=== PATIENT | female | born 1980 | race Caucasian/White ===

== ENCOUNTER → 2020-01-06 12:54 | Outpatient (BNVA) | payer MEDICARE, MEDICAID, SELFPAY | PROVIDERS: Visit Provider Surgery | DX: Z76.89 Persons encountering health services in other specified circumstances (principal) ==

== ENCOUNTER 2020-01-13 12:01 | Outpatient (REF) | payer OTHER, SELFPAY ==
[2020-01-13 14:17] LABS: Anion Gap 14 (12-20); Blood Urea Nitrogen 13 mg/dL (9-16); Calcium 8.9 mg/dL (8.4-10.2); Carbon Dioxide 25 mmol/L (22-29); Chloride 104 mmol/L (96-108); Estimated Glomerular Filt Rate > 60; Glucose Random 141 mg/dL (60-115); Potassium 3.9 mmol/l (3.3-5.1); Sodium 139 mmol/L (135-145)
[2020-01-13 14:22] LABS: B Type Natriuretic Peptide < 10 pg/mL (<100)
[2020-01-13 14:54] LABS: MANUAL DIFF FLAG NO
[2020-01-13 15:02] LABS: Basophils Percent Auto 0.5 % (0-2); Eosinophils Absolute Auto 0.2 X10*3/uL (0.0-0.4); Eosinophils Percent Auto 1.9 % (0-4); Hematocrit 37.9 % (37-47); Hemoglobin 12.3 g/dl (12.0-16.0); Imm Gran Abs Auto 0.02 X10*3/uL (0.00-0.03); Imm Gran Pct Auto 0.2 % (0.0-0.4); Lymphocytes Absolute Auto 2.4 X10*3/uL (1.2-4.9); Lymphocytes Percent Auto 27.2 % (20-40); Mean Corpuscular HGB Conc 32.5 g/dl (31.0-35.0); Mean Corpuscular Hemoglobin 29.2 pg (27.0-33.0); Mean Platelet Volume 9.8 fL (9.4-12.3); Neutrophils Absolute Auto 5.2 X10*3/uL (2.0-8.3); Neutrophils Percent Auto 59.2 % (45-73); Platelet Count 338 X10*3/uL (160-400); Red Blood Count 4.21 X10*6/uL (4.20-5.50); Red Cell Distribution Width 12.5 % (11.0-16.0); White Blood Count 8.9 X10*3/uL (4.8-10.8)
[2020-01-13 15:27] LABS: Alanine Aminotransferase 14 U/L (0-31); Albumin Level 3.8 g/dL (3.5-5.0); Alkaline Phosphatase 93 U/L (39-117); Anion Gap 14 (12-20); Aspartate Amino Transferase 18 U/L (5-31); Bilirubin Total 0.5 mg/dL (0.0-1.0); Blood Urea Nitrogen 13 mg/dL (9-16); C Reactive Protein 4.37 mg/dL (< or = 0.50); Carbon Dioxide 26 mmol/L (22-29); Chloride 104 mmol/L (96-108); Estimated Glomerular Filt Rate > 60; Glucose Random 77 mg/dL (60-115); Potassium 4.1 mmol/l (3.3-5.1); Sodium 140 mmol/L (135-145); Total Protein 7.4 g/dL (6.5-8.0)
[2020-01-13 15:50] LABS: Erythrocyte Sedimentation Rate 63 MM/HR (0-20)
== END 2020-01-13 12:02 | disposition home or self-care (01) ==
LOC: HO.LAB 12:01
PROVIDERS: Absent Provider Student in an Organized Health Care Education/Training Program; PCP Internal Medicine; Visit Provider Internal Medicine Cardiovascular Disease
DX: M05.9 Rheumatoid arthritis with rheumatoid factor, unspecified (principal); M17.0 Bilateral primary osteoarthritis of knee; Z79.899 Other long term (current) drug therapy
CPT/HCPCS: 20610; 36415; 80048; 80053; 83880; 85025; 85652; 86140; 87071; 87205; 89060; 99212

== ENCOUNTER → 2020-01-16 10:16 | Outpatient (BNVA) | payer OTHER, SELFPAY | PROVIDERS: PCP Emergency Medicine; Visit Provider Surgery | DX: E27.49 Other adrenocortical insufficiency (principal); M06.9 Rheumatoid arthritis, unspecified; M81.8 Other osteoporosis without current pathological fracture; T38.0X5D Adverse effect of glucocorticoids and synthetic analogues, subsequent encounter; K91.2 Postsurgical malabsorption, not elsewhere classified; E11.40 Type 2 diabetes mellitus with diabetic neuropathy, unspecified; E66.9 Obesity, unspecified; Z68.31 Body mass index [BMI] 31.0-31.9, adult; Z79.52 Long term (current) use of systemic steroids; Z98.84 Bariatric surgery status; Z86.39 Personal history of other endocrine, nutritional and metabolic disease; Z90.722 Acquired absence of ovaries, bilateral | CPT/HCPCS: 99212 ==

== ENCOUNTER 2020-01-26 10:36 | Outpatient (REF) | payer OTHER, SELFPAY ==
[2020-01-26 11:54] LABS: Blood Urea Nitrogen 8 mg/dL (9-16); Estimated Glomerular Filt Rate > 60
== END 2020-01-26 10:37 | disposition home or self-care (01) ==
LOC: HO.MDS 10:36
PROVIDERS: PCP Internal Medicine; Visit Provider Student in an Organized Health Care Education/Training Program
DX: M81.0 Age-related osteoporosis without current pathological fracture (principal)
CPT/HCPCS: 82565; 84520; 96365; J3489

== ENCOUNTER 2020-03-17 12:22 | Outpatient (REF) | payer OTHER, SELFPAY ==
[2020-03-17 14:01] LABS: MANUAL DIFF FLAG NO
[2020-03-17 14:12] LABS: Basophils Percent Auto 0.5 % (0-2); Eosinophils Absolute Auto 0.1 X10*3/uL (0.0-0.4); Eosinophils Percent Auto 2.2 % (0-4); Hematocrit 39.8 % (37-47); Hemoglobin 12.8 g/dl (12.0-16.0); Imm Gran Abs Auto 0.01 X10*3/uL (0.00-0.03); Imm Gran Pct Auto 0.2 % (0.0-0.4); Mean Corpuscular HGB Conc 32.2 g/dl (31.0-35.0); Mean Corpuscular Hemoglobin 28.8 pg (27.0-33.0); Mean Corpuscular Volume 89.4 fL (80-98); Mean Platelet Volume 9.9 fL (9.4-12.3); Monocytes Absolute Auto 0.9 X10*3/uL (0.1-1.2); Monocytes Percent Auto 15.7 % (2-11); Neutrophils Absolute Auto 2.9 X10*3/uL (2.0-8.3); Neutrophils Percent Auto 48.4 % (45-73); Platelet Count 304 X10*3/uL (160-400); Red Blood Count 4.45 X10*6/uL (4.20-5.50); Red Cell Distribution Width 13.2 % (11.0-16.0); White Blood Count 5.9 X10*3/uL (4.8-10.8)
[2020-03-17 14:41] LABS: Alanine Aminotransferase 16 U/L (0-31); Alkaline Phosphatase 84 U/L (39-117); Anion Gap 11 (12-20); Aspartate Amino Transferase 19 U/L (5-31); Bilirubin Total 0.3 mg/dL (0.0-1.0); Blood Urea Nitrogen 8 mg/dL (9-16); C Reactive Protein 0.88 mg/dL (< or = 0.50); Carbon Dioxide 27 mmol/L (22-29); Chloride 108 mmol/L (96-108); Estimated Glomerular Filt Rate > 60; Glucose Random 75 mg/dL (60-115); Potassium 3.7 mmol/l (3.3-5.1); Sodium 142 mmol/L (135-145); Total Protein 7.3 g/dL (6.5-8.0)
[2020-03-17 14:48] LABS: Erythrocyte Sedimentation Rate 33 MM/HR (0-20)
== END 2020-03-17 12:23 | disposition home or self-care (01) ==
LOC: HO.LAB 12:22
PROVIDERS: PCP Emergency Medicine; Visit Provider Student in an Organized Health Care Education/Training Program
DX: M05.9 Rheumatoid arthritis with rheumatoid factor, unspecified (principal); M25.511 Pain in right shoulder
CPT/HCPCS: 20610; 36415; 80053; 85025; 85652; 86140; 99212

== ENCOUNTER → 2020-04-02 09:56 | Outpatient (BNVA) | payer OTHER, SELFPAY | PROVIDERS: PCP Internal Medicine; Visit Provider Internal Medicine Endocrinology, Diabetes & Metabolism | DX: Z13.89 Encounter for screening for other disorder (principal) | CPT/HCPCS: Q3014 ==

== ENCOUNTER 2020-05-04 11:38 | Outpatient (REF) | payer OTHER, SELFPAY | END 2020-05-04 11:39 | disposition home or self-care (01) | LOC: HO.LAB 11:38 | PROVIDERS: Visit Provider Internal Medicine | DX: Z20.822 Contact with and (suspected) exposure to COVID-19 (principal) | CPT/HCPCS: 36415; C9803; U0003; U0005 ==

== ENCOUNTER 2020-05-07 12:45 | Emergency (ER) | payer OTHER, SELFPAY ==
--- NOTE | ~2020-05-07 | XR_ITS ---
EXAMINATION: XR CHEST CLINICAL INFORMATION: COVID/shortness of breath COMPARISON: 10/28/2019 TECHNIQUE: Frontal view of the chest was obtained. FINDINGS: Lung volumes remain low. Coarse interstitial opacities are present similar to the prior study. No focal consolidation or mass. Normal heart size. No pleural effusion or pneumothorax. Left upper quadrant/epigastric surgical clips. XR/XR chest 1V IMPRESSION: Lung volumes are low with coarse interstitial opacity similar to the prior study. No acute pulmonary disease.
[2020-05-07 13:13] VITALS: BP 100/62; PULSE 89; RESP 18; TEMP 35.7; O2SAT 99; BMI 33.3
--- NOTE | 2020-05-07 13:14 | ED.URI ---
HPI - URI/Sore Throat General Chief Complaint: General Medical Stated Complaint: POS COVID SOB Time Seen by Provider: 05/07/20 13:07 Source: patient Mode of arrival: ambulatory History of Present Illness HPI Narrative: 39-year-old female with past medical history of diabetes, gastric bypass, possible mild distortion, secondary adrenal insufficiency, diabetic neuropathy, COVID-19 positive on 05/04, presenting to the ED complaining of continued dry cough with associated chest discomfort when coughing, SOB, myalgias, generalized weakness since dx covid-19. Denies recent travel, calf pain, decreased po intake, fever +sick contacts Related Data Home Medications Medication Instructions Recorded Confirmed baclofen 10 mg tablet 10 mg PO TID 01/13/20 04/02/20 bupropion HCl 100 mg tablet 100 mg PO .once a day tab 01/13/20 04/02/20 cyclobenzaprine 5 mg tablet 5 mg PO TID PRN 01/13/20 04/02/20 metoprolol tartrate 25 mg tablet 25 mg PO BID 01/13/20 04/02/20 oxycodone 5 mg tablet 5 mg PO Q4H PRN 01/13/20 04/02/20 pantoprazole 40 mg tablet,delayed 40 mg PO DAILY 01/13/20 04/02/20 release sertraline 100 mg tablet 100 mg PO DAILY 01/13/20 04/02/20 spironolactone 25 mg tablet 25 mg PO DAILY 01/13/20 04/02/20 vitamin B complex 1 tab PO DAILY 01/13/20 04/02/20 acetaminophen 325 mg tablet 0 mg PO 04/02/20 04/02/20 zolpidem 10 mg tablet 10 mg PO BEDTIME PRN 04/02/20 04/02/20 Previous Rx's Medication Instructions Recorded sarilumab 200 mg/1.14 mL 200 mg SUBCUT Q2W #2.28 ml 03/17/20 subcutaneous pen injector sulfasalazine 500 mg tablet 1,000 mg PO BID #120 tab 03/31/20 acarbose 25 mg tablet 25 mg PO TID 30 Days #90 tab 04/02/20 hydrocortisone 10 mg tablet 15 mg PO DAILY 30 Days #45 tab 04/02/20 hydrocortisone 5 mg tablet 7.5 mg PO DAILY 30 Days #45 tab 04/02/20 hydroxychloroquine 200 mg tablet 200 mg PO BID #180 tab 04/08/20 folic acid 1 mg tablet 1 mg PO QAM #30 tab 04/27/20 albuterol sulfate 2 puff INHALATION Q4-6H PRN #6.7 g 05/07/20 benzonatate [Tessalon Perles] 100 mg PO TID PRN #14 cap 05/07/20 doxycycline hyclate 100 mg PO BID 7 Days #14 cap 05/07/20 Allergies Allergy/AdvReac Type Severity Reaction Status Date / Time pt states no food/medication Allergy Unknown na Uncoded 01/16/20 10:56 a Review of Systems Review of Systems: Constitutional: No Weight loss, No Fever, No Chills ENT/Mouth: No Ear Pain, No Nasal Congestion, No Rhinorrhea, No Swallowing Difficulty Cardiovascular: + Chest Pain, + SOB Respiratory: +Cough, No Sputum, No Wheezing Gastrointestinal: No Nausea, No Vomiting, No Diarrhea, No Constipation, No Abdominal pain Musculoskeletal: No joint pain, + Myalgias, No Joint Swelling Skin: No Skin Lesions, No rash Neuro: + Weakness Yes all other systems are reviewed and are negative [facility] Past Medical History Attestation statement: The following information was validated with the patient. Medical History (Updated 05/07/20 @ 13:42 by MIKE Spain) Diabetic neuropathy History of diabetes mellitus resolved following bariatric surgery Hypoglycemia after GI (gastrointestinal) surgery Intestinal malabsorption Localized osteoarthritis of knees, bilateral Obesity Secondary adrenal insufficiency Seropositive rheumatoid arthritis Surgical History (Updated 04/02/20 @ 09:58 by Sri Mejia MA) H/O removal of cyst History of esophagogastroduodenoscopy (EGD) History of hip replacement History of kidney surgery History of Ofelia-en-Y gastric bypass Hx laparoscopic cholecystectomy Hx of hernia repair S/P NITHYA (total abdominal hysterectomy) Family History Family History (Updated 01/06/20 @ 10:21 by Juan Solis CMA) Father Epilepsia Depression Anxiety Colon cancer Mother HTN (hypertension) DM (diabetes mellitus) Heart disease RA (rheumatoid arthritis) Sister No problems noted. Sister No problems noted. Social History Social History (Updated 01/13/20 @ 12:46 by Dallas Harper LPN) Alcohol intake: never Smoking Status: Never smoker Advance Directives: No Advance Directives Information Provided: No Physical Exam Vital Signs: Vital Signs: Last Vital Signs Temp 96.3 F L 05/07/20 13:13 Pulse 89 05/07/20 13:13 Resp 18 05/07/20 13:13 BP 100/62 05/07/20 13:13 Pulse Ox 99 05/07/20 13:13 Body Mass Index 33.3 Const: General: cooperative, healthy appearing, comfortable and no acute distress Orientation/consciousness: patient oriented x3 Limitations: no limitations HENMT: Head: Yes normal to inspection Ears: hearing grossly normal bilaterally General nose exam: Normal external nose present Face and sinus: Yes normal facial exam Eyes: General: appearance normal, both eyes and all related structures EOM: EOMs intact bilaterally Neck: Neck: Yes normal visual inspection Resp: Effort & Inspection: normal respiratory effort Auscultation: clear to auscultation bilaterally, no rales, no rhonchi and no wheezes Cardio: Rate: regular rate Heart sounds: S1 normal heart sound present and S2 normal heart sound present GI: Inspection: Yes normal to inspection Palpation (GI): Soft to palpation, nontender, no guarding and not rigid Skin: Rashes: no rashes Wounds: no wounds Neuro: General: patient oriented x3 Gait exam (Neuro): Normal gait present Extrem: Other: no calf ttp General: Yes normal to inspection and Yes no pedal edema Course Course Course Narrative: XR chest 1V IMPRESSION: Lung volumes are low with coarse interstitial opacity similar to the prior study. No acute pulmonary disease. >> will d/c patient home with Z-asaf, albuterol, and tessalon pearls peer. Worrisome signs and symptoms and strict return precautions discussed. Patient verbalized understanding feel safe for discharge home MDM - URI/Sore Throat MDM Narrative Medical decision making narrative: On exam VSS, NAD, well appearing, lungs CTA. Likely sx due to covid-19. Low concern for ACS or PE. Low concern for bacterial PNA Plan: CXR Differential Diagnosis Differential diagnosis: Likely upper respiratory infection and viral infection Medical Records Attestation: I reviewed the patient's medical records. Lab Data Attestation: I reviewed the patient's lab results. Discharge Plan Discharge Clinical Impression: COVID-19 Patient Disposition: Home, Self-Care Instructions: COVID-19 (Coronavirus Disease 2019) (ED) Additional Instructions: You have COVID-19. Her x-ray did not show any acute findings. Doxyclycline in is an antibiotic, take as prescribed. In addition use albuterol inhaler at home as needed for shortness of breath and wheezing. Tessalon Perles for cough. Rest. Stay hydrated. Take Tylenol and Motrin every 4-6 hours for body aches and fever. If you develop constant or worsening shortness of breath, chest pain, or fevers unresolved with medications at home return to the ED. Tienes COVID-19. Robert radiograf?a no mostr? ace?n hallazgo elaine. Doxycycline en es un antibi?ray, t?garner seg?n lo prescrito. Adem?s, use el inhalador de albuterol en casa seg?n sea necesario para la dificultad para respirar y las sibilancias. Tessalon Perles para la tos. [place]. Mantente hidratado. [place] Tylenol y Motrin cada 4-6 horas para los checo corporales y la fiebre. Si presenta dificultad para respirar rashida o que empeora, dolor en el pecho o fiebre que no se resuelve con medicamentos en el hogar, regrese al servicio de urgencias. Prescriptions: New albuterol sulfate 90 mcg/actuation HFA aerosol inhaler 2 puff inhalation Q4-6H PRN (Reason: shortness of breath or wheezing) Qty: 6.7 RF: 0 benzonatate [Tessalon Perles] 100 mg capsule 100 mg PO TID PRN (Reason: cough) Qty: 14 RF: 0 doxycycline hyclate 100 mg capsule 100 mg PO BID 7 Days Qty: 14 RF: 0 No Action sulfasalazine 500 mg tablet 1,000 mg PO BID Qty: 120 RF: 3 hydroxychloroquine 200 mg tablet 200 mg PO BID Qty: 180 RF: 1 folic acid 1 mg tablet 1 mg PO QAM Qty: 30 RF: 11 oxycodone 5 mg tablet 5 mg PO Q4H PRNRF: 0 baclofen 10 mg tablet 10 mg PO TID RF: 0 vitamin B complex [B Complex-Vitamin B12] Tablet 1 tab PO DAILY RF: 0 cyclobenzaprine 5 mg tablet 5 mg PO TID PRNRF: 0 metoprolol tartrate 25 mg tablet 25 mg PO BID RF: 0 spironolactone 25 mg tablet 25 mg PO DAILY RF: 0 pantoprazole 40 mg tablet,delayed release (DR/EC) 40 mg PO DAILY RF: 0 sertraline 100 mg tablet 100 mg PO DAILY RF: 0 bupropion HCl 100 mg tablet 100 mg PO .once a day RF: 0 zolpidem 10 mg tablet 10 mg PO BEDTIME PRNRF: 0 acetaminophen 325 mg tablet 0 mg PO RF: 0 hydrocortisone 10 mg tablet 15 mg PO DAILY 30 Days Qty: 45 RF: 4 hydrocortisone 5 mg tablet 7.5 mg PO DAILY 30 Days Qty: 45 RF: 4 acarbose 25 mg tablet 25 mg PO TID 30 Days Qty: 90 RF: 5 Kevzara 200 mg/1.14 mL pen injector 200 mg subcut Q2W Qty: 2.28 RF: 2 Referrals: Physician,Unknown [Primary Care Provider] - 2 days (call) Print Language: Zambian
== END 2020-05-07 13:55 | disposition home or self-care (01) ==
PROVIDERS: Emergency Provider Emergency Medicine
DX: U07.1 COVID-19 (principal); R05 Cough; M79.10 Myalgia, unspecified site; Z79.899 Other long term (current) drug therapy
CPT/HCPCS: 71045; 99283

== ENCOUNTER 2020-05-17 14:21 | Outpatient (REF) | payer OTHER, SELFPAY | END 2020-05-17 14:22 | disposition home or self-care (01) | LOC: HO.LAB 14:21 | PROVIDERS: Visit Provider Internal Medicine | DX: Z20.822 Contact with and (suspected) exposure to COVID-19 (principal) | CPT/HCPCS: 36415; C9803; U0003; U0005 ==

== ENCOUNTER 2020-06-01 11:14 | Outpatient (REF) | payer OTHER, SELFPAY ==
[2020-06-01 12:39] LABS: MANUAL DIFF FLAG NO
[2020-06-01 12:43] LABS: Basophils Percent Auto 0.6 % (0-2); Eosinophils Absolute Auto 0.2 X10*3/uL (0.0-0.4); Eosinophils Percent Auto 2.9 % (0-4); Hemoglobin 11.6 g/dl (12.0-16.0); Imm Gran Abs Auto 0.01 X10*3/uL (0.00-0.03); Imm Gran Pct Auto 0.2 % (0.0-0.4); Lymphocytes Absolute Auto 1.7 X10*3/uL (1.2-4.9); Lymphocytes Percent Auto 32.6 % (20-40); Mean Corpuscular HGB Conc 31.4 g/dl (31.0-35.0); Mean Corpuscular Volume 82.8 fL (80-98); Mean Platelet Volume 10.2 fL (9.4-12.3); Monocytes Absolute Auto 0.6 X10*3/uL (0.1-1.2); Monocytes Percent Auto 11.7 % (2-11); Neutrophils Absolute Auto 2.7 X10*3/uL (2.0-8.3); Platelet Count 327 X10*3/uL (160-400); Red Blood Count 4.47 X10*6/uL (4.20-5.50); Red Cell Distribution Width 14.2 % (11.0-16.0); White Blood Count 5.2 X10*3/uL (4.8-10.8)
[2020-06-01 13:05] LABS: Alanine Aminotransferase 17 U/L (0-31); Albumin Level 4.1 g/dL (3.5-5.0); Alkaline Phosphatase 100 U/L (39-117); Anion Gap 13 (12-20); Aspartate Amino Transferase 26 U/L (5-31); Bilirubin Total 0.4 mg/dL (0.0-1.0); Blood Urea Nitrogen 9 mg/dL (9-16); C Reactive Protein 0.12 mg/dL (< or = 0.50); Calcium 9.2 mg/dL (8.4-10.2); Carbon Dioxide 25 mmol/L (22-29); Chloride 107 mmol/L (96-108); Estimated Glomerular Filt Rate > 60; Glucose Random 86 mg/dL (60-115); Potassium 3.6 mmol/L (3.3-5.1); Sodium 141 mmol/L (135-145); Total Protein 7.7 g/dL (6.5-8.0)
[2020-06-01 14:45] LABS: Erythrocyte Sedimentation Rate 28 MM/HR (0-20)
== END 2020-06-01 11:15 | disposition home or self-care (01) ==
LOC: HO.LAB 11:14
PROVIDERS: PCP Internal Medicine; Visit Provider Student in an Organized Health Care Education/Training Program
DX: M05.9 Rheumatoid arthritis with rheumatoid factor, unspecified (principal); M17.0 Bilateral primary osteoarthritis of knee; E27.49 Other adrenocortical insufficiency; E11.40 Type 2 diabetes mellitus with diabetic neuropathy, unspecified; E11.649 Type 2 diabetes mellitus with hypoglycemia without coma; K90.49 Malabsorption due to intolerance, not elsewhere classified; Z98.84 Bariatric surgery status; Z90.49 Acquired absence of other specified parts of digestive tract; Z90.710 Acquired absence of both cervix and uterus; Z96.641 Presence of right artificial hip joint; Z86.16 Personal history of COVID-19; Z79.899 Other long term (current) drug therapy
CPT/HCPCS: 20610; 36415; 80053; 85025; 85652; 86140; 99212

== ENCOUNTER 2020-06-02 09:47 | Outpatient (REF) | payer OTHER, SELFPAY | END 2020-06-02 09:48 | disposition home or self-care (01) | LOC: HO.LAB 09:47 | PROVIDERS: Visit Provider Internal Medicine | DX: Z20.822 Contact with and (suspected) exposure to COVID-19 (principal) | CPT/HCPCS: 36415; C9803; U0003; U0005 ==

== ENCOUNTER → 2020-06-04 09:56 | Outpatient (BNVA) | payer OTHER, SELFPAY | PROVIDERS: PCP Internal Medicine; Visit Provider Internal Medicine Endocrinology, Diabetes & Metabolism | DX: E27.49 Other adrenocortical insufficiency (principal); E11.40 Type 2 diabetes mellitus with diabetic neuropathy, unspecified; K91.2 Postsurgical malabsorption, not elsewhere classified; Z98.84 Bariatric surgery status | CPT/HCPCS: 99212 ==

== ENCOUNTER 2020-07-18 11:35 | Inpatient (IN) | payer OTHER, SELFPAY ==
[2020-07-18] VITALS (7 sets, daily range): BP systolic 92–129; BP diastolic 52–87; PULSE 53–101; RESP 16–20; TEMP 36.9–37.6; O2SAT 94–103; BMI 41.5
--- NOTE | ~2020-07-18 | FL_ITS ---
EXAMINATION: XR FLUOROSCOPY WITH IMAGES CLINICAL INFORMATION: Right retrograde pyelogram COMPARISON: CT of abdomen pelvis the second 2020 TECHNIQUE: Fluoroscopy performed by Dr. Luisito Lewis. Fluoroscopy time: 28.5 seconds 10.25 mcg Images: 3 FINDINGS: Initial film shows an obstructing stone in the distal ureter. The next pictures demonstrate the distal end of a double-J stent in the bladder and the proximal end coiled near the ureteropelvic junction. FL/FL guidance in OR IMPRESSION: Fluoroscopy and spot films during right sided stent placement
--- NOTE | ~2020-07-18 | CT_ITS ---
EXAMINATION: CT ABDOMEN AND PELVIS WITH CONTRAST CLINICAL INFORMATION: Epigastric pain with nausea and vomiting with history of gastric bypass COMPARISON: CT abdomen pelvis 09/07/2019 TECHNIQUE: Multidetector volumetric images were obtained from the superior aspect of the liver through the pubic symphysis following administration 85 mL of Omnipaque 350 intravenous contrast. Sagittal and coronal reformatted images were obtained on the technologist's workstation. Oral contrast: No This CT examination was performed using dose optimization techniques as appropriate, variously including the following: *Automated exposure control *Adjustment of mA and/or kV according to patient size (this includes techniques or standardized protocols for targeted exams where dose is matched to indication/reason for exam; i.e. extremities or head) *Use of iterative reconstruction technique DLP: 835 mGy-cm FINDINGS: LUNG BASES: The visualized lung bases are unremarkable. LIVER, GALLBLADDER, AND BILIARY TREE: The liver is normal in size, shape, and attenuation. No focal hepatic lesion or biliary ductal dilatation is present. The gallbladder has been removed. PANCREAS: Unremarkable. SPLEEN: Unremarkable. ADRENAL GLANDS: Unremarkable. KIDNEYS AND URETERS: Right: The right kidney is swollen compared to the left and demonstrates a decreased nephrogram. There is marked hydronephrosis present with a dilated ureter down to the level of an obstructing calculus about 4 cm above the ureterovesical junction. The calculus measures 5 mm in greatest length. It measures 700 Hounsfield units which occludes some partial volume averaging. 3 intrarenal nonobstructing calculi are present with 2 in the upper pole and the largest in the lower pole measuring 5 mm. This stone is 12.4 cm from the posterior axillary line. No right-sided renal masses are seen. Left: 3 nonobstructing left intrarenal calculi are seen with a punctate calcification at the upper as well as lower pole and a larger calcification measuring 5 mm in the mid kidney. No renal masses are seen. No hydronephrosis is present and the left ureter appears normal. BLADDER: Unremarkable. GASTROINTESTINAL TRACT: Patient appears to have undergone a Ofelia-en-Y gastric type bypass. The small and large bowel are otherwise unremarkable. The appendix is unremarkable. ABDOMINAL WALL: No significant hernia is appreciated. LYMPH NODES: No retroperitoneal lymphadenopathy. VASCULAR: Unremarkable. PELVIC VISCERA: Surgically removed OSSEOUS STRUCTURES: Degenerative changes present in the spine most marked at L5-S1. A right total hip prosthesis is present. CT/CT abdomen pelvis w con IMPRESSION: 1. Obstructing right distal ureteral 5 mm calculus with right-sided hydronephrosis and ureterectasis down to the level of the stone about 4 cm above the bladder. 2. Nonobstructing bilateral intrarenal calculi. 3. Incidentally noted cholecystectomy, Ofelia-en-Y type gastric bypass, hysterectomy, right hip replacement and degenerative changes L5-S1.
--- NOTE | ~2020-07-18 | CT_ITS ---
EXAMINATION: CT HEAD WITHOUT CONTRAST CLINICAL INFORMATION: Headache COMPARISON: None TECHNIQUE: Contiguous axial imaging was performed from the skull base to vertex without intravenous administration of contrast. This CT examination was performed using dose optimization techniques as appropriate, variously including the following: *Automated exposure control *Adjustment of mA and/or kV according to patient size (this includes techniques or standardized protocols for targeted exams where dose is matched to indication/reason for exam; i.e. extremities or head) *Use of iterative reconstruction technique DLP: 652 mGy-cm FINDINGS: There is no evidence of acute intracranial hemorrhage or territorial infarction. No abnormal mass effect or midline shift is seen. Jason to white matter differentiation is well preserved. No extra-axial fluid collections are identified. The ventricles are normal in size. There is no abnormal attenuation within the brain parenchyma. The osseous structures and soft tissues are normal. The mastoid air cells and visualized portions of the paranasal sinuses are well aerated. CT/CT head/brain wo con IMPRESSION: No acute intracranial process seen.
[2020-07-18 16:01] LABS: Basophils Percent Auto 0.1 % (0-2); Eosinophils Percent Auto 0.4 % (0-4); Hematocrit 34.5 % (37-47); Imm Gran Abs Auto 0.02 X10*3/uL (0.00-0.03); Imm Gran Pct Auto 0.3 % (0.0-0.4); Lymphocytes Percent Auto 14.5 % (20-40); MANUAL DIFF FLAG SCAN; Mean Corpuscular HGB Conc 31.9 g/dl (31.0-35.0); Mean Corpuscular Hemoglobin 25.4 pg (27.0-33.0); Mean Corpuscular Volume 79.7 fL (80-98); Mean Platelet Volume 9.9 fL (9.4-12.3); Monocytes Absolute Auto 1.5 X10*3/uL (0.1-1.2); Monocytes Percent Auto 21.6 % (2-11); Neutrophils Absolute Auto 4.4 X10*3/uL (2.0-8.3); Neutrophils Percent Auto 63.1 % (45-73); Platelet Count 234 X10*3/uL (160-400); Red Blood Count 4.33 X10*6/uL (4.20-5.50); Red Cell Distribution Width 17.9 % (11.0-16.0); SCAN SMEAR FLAG 1
[2020-07-18 16:22] LABS: Alanine Aminotransferase 17 U/L (0-31); Albumin Level 3.7 g/dL (3.5-5.0); Alkaline Phosphatase 108 U/L (39-117); Anion Gap 12 (12-20); Aspartate Amino Transferase 17 U/L (5-31); Bilirubin Direct 0.2 mg/dL (0.0-0.5); Bilirubin Total 0.5 mg/dL (0.0-1.0); Blood Urea Nitrogen 7 mg/dL (9-16); Calcium 8.8 mg/dL (8.4-10.2); Carbon Dioxide 26 mmol/L (22-29); Chloride 102 mmol/L (96-108); Creatinine Clr Calc Pharmacy 133.7; Estimated Glomerular Filt Rate > 60; Glucose Random 113 mg/dL (60-115); Lipase 22 U/L (8-78); Potassium 3.2 mmol/L (3.3-5.1); Sodium 137 mmol/L (135-145); Total Protein 7.5 g/dL (6.5-8.0)
--- NOTE | 2020-07-18 16:26 | ED.ABDPAIN ---
HPI - Abdominal Pain General Chief Complaint: Abdominal Pain Stated Complaint: headache Time Seen by Provider: 07/18/20 16:22 Source: patient and old records reviewed Mode of arrival: ambulatory Limitations: no limitations History of Present Illness HPI narrative: 40 yo female with hx of gastric bypass 2 years ago, DM, RA, secondary AI comes in with c/o 5 days of upper abdominal pain wrapping around back with n/v no flatus, + constipation, also notes stabbing headache during that time, patient unable to take her medications including her daily hydrocortisone MD elicited complaint: abdominal pain Onset (ago): day(s) (5) Pain Consistency: constant Location: epigastric Severity: severe Quality: stabbing Radiation: bilateral flank Migration to: no migration Exacerbating factors: vomiting and movement Relieving factors: nothing Associated symptoms: nausea, vomiting, chills and other (headache that is sharp and stabbing at times) Related Data Home Medications Medication Instructions Recorded Confirmed baclofen 10 mg tablet 10 mg PO TID 01/13/20 06/04/20 bupropion HCl 100 mg tablet 100 mg PO .once a day tab 01/13/20 06/04/20 cyclobenzaprine 5 mg tablet 5 mg PO TID PRN 01/13/20 06/04/20 metoprolol tartrate 25 mg tablet 25 mg PO BID 01/13/20 06/04/20 oxycodone 5 mg tablet 5 mg PO Q4H PRN 01/13/20 06/04/20 pantoprazole 40 mg tablet,delayed 40 mg PO DAILY 01/13/20 06/04/20 release sertraline 100 mg tablet 100 mg PO DAILY 01/13/20 06/04/20 spironolactone 25 mg tablet 25 mg PO DAILY 01/13/20 06/04/20 vitamin B complex 1 tab PO DAILY 01/13/20 06/04/20 zolpidem 10 mg tablet 10 mg PO BEDTIME PRN 04/02/20 06/04/20 blood sugar diagnostic #10 ea 06/04/20 06/04/20 cholecalciferol (vitamin D3) 50 50 mcg PO DAILY 06/04/20 06/04/20 mcg (2,000 unit) capsule furosemide 40 mg tablet 120 mg PO Q OTHER DAY PRN 06/04/20 06/04/20 lancets 33 gauge #100 ea 06/04/20 06/04/20 sacubitril 24 mg-valsartan 26 mg 1 tab PO BID 06/04/20 06/04/20 tablet Previous Rx's Medication Instructions Recorded sulfasalazine 500 mg tablet 1,000 mg PO BID #120 tab 03/31/20 hydroxychloroquine 200 mg tablet 200 mg PO BID #180 tab 04/08/20 folic acid 1 mg tablet 1 mg PO QAM #30 tab 04/27/20 albuterol sulfate 2 puff INHALATION Q4-6H PRN #6.7 g 05/07/20 gabapentin 600 mg tablet 600 mg PO BEDTIME #30 tab 06/01/20 acarbose 25 mg tablet 25 mg PO TID 30 Days #90 tab 06/04/20 hydrocortisone 10 mg tablet 10 mg PO DAILY 30 Days #30 tab 06/04/20 hydrocortisone 5 mg tablet 5 mg PO DAILY 30 Days #30 tab 06/04/20 sarilumab 200 mg/1.14 mL 200 mg SUBCUT Q2W #2.28 ml 06/15/20 subcutaneous pen injector TRUEplus Lancets 33 gauge #100 ea NS 06/23/20 blood sugar diagnostic #100 ea 06/23/20 Allergies Allergy/AdvReac Type Severity Reaction Status Date / Time pt states no food/medication Allergy Unknown na Uncoded 01/16/20 10:56 a Review of Systems Review of Systems Constitutional : No Fever, No Chills, No Fatigue ENT/Mouth : No sore throat, No Rhinorrhea Eyes: No Eye Pain, No Swelling, No Redness Cardiovascular : No Chest Pain, No SOB, No Dyspnea on Exertion Respiratory : No Cough, No Sputum Gastrointestinal : pos Nausea, pos Vomiting, No Diarrhea, pos abdominal Pain Genitourinary : No Dysuria, No Urinary Frequency, No Hematuria, Musculoskeletal : No joint pain, No Myalgias, No Joint Swelling Skin : No Skin Lesions, No rash Neuro : No Weakness, No Numbness, No Dizziness, positive Headache Psych : No Anxiety/Panic, No Depression Heme/Lymph: No Bruising, No Bleeding,No Lymphadenopathy Endocrine : No Polyuria, No Polydipsia All other systems reviewed and are negative Physical Exam Vital Signs: Vital Signs: Last Vital Signs Temp 99.6 F 07/18/20 18:58 Pulse 99 07/18/20 18:58 Resp 18 07/18/20 18:58 BP 112/57 L 07/18/20 19:32 Pulse Ox 98 07/18/20 18:58 Body Mass Index 41.5 Appearance: Alert. Oriented X3. No acute distress. Eyes: Pupils equal, round and reactive to light. ENT: Pharynx normal. Neck: Normal inspection. Neck supple. CVS: Normal heart rate and rhythm. Pulses normal. Respiratory: No respiratory distress. Breath sounds normal. Abdomen: Soft and moderate RUQ and epigastric ttp no rebound or guarding Skin: Skin warm and dry. Normal skin color. Normal skin turgor. Extremities: No lower extremity edema. No calf ttp Neuro: Oriented X 3. No motor deficit. No sensory deficit. Steady gait no ataxia Course Course Course Narrative: given her n/v and pain message sent to Urology - concern that she cannot keep her medications down including her hydrocortisone - will admit to medicine with Urology follow up after discussion with Dr. Lewis possible infection at this time in UA sample given 814pm cultures, lactic acid and empiric rocephin ordered MDM - Abdominal Pain MDM Narrative Medical decision making narrative: 40 yo female with DM, s/p bariatric surgery 2 years ago, secondary AI here with 5 days of n/v and abdominal pain along with headache at this time will need labs, CT head for mass, CT abdomen for obstruction/pancreatitis/duodenitis, she is not able to take her medications will need IV hydrocortisone, IV protonix, IV morphine for pain, dispo per results and findings Lab Data Result diagrams: 07/18/20 15:46 07/18/20 15:46 Labs: Lab Results 07/18/20 07/18/20 07/18/20 Range/Units 15:46 15:46 15:46 WBC 7.0 (4.8-10.8) X10*3/uL RBC 4.33 (4.20-5.50) X10*6/uL Hgb 11.0 L (12.0-16.0) g/dl Hct 34.5 L (37-47) % MCV 79.7 L (80-98) fL MCH 25.4 L (27.0-33.0) pg MCHC 31.9 (31.0-35.0) g/dl RDW 17.9 H (11.0-16.0) % Plt Count 234 D (160-400) X10*3/uL MPV 9.9 (9.4-12.3) fL Immature Gran % (Auto) 0.3 (0.0-0.4) % Neut % (Auto) 63.1 (45-73) % Lymph % (Auto) 14.5 L (20-40) % Hood % (Auto) 21.6 H (2-11) % Eos % (Auto) 0.4 (0-4) % Baso % (Auto) 0.1 (0-2) % Lymph # (Auto) 1.0 L (1.2-4.9) X10*3/uL Hood # (Auto) 1.5 H (0.1-1.2) X10*3/uL Eos # (Auto) 0.0 (0.0-0.4) X10*3/uL Baso # (Auto) 0.0 (0.0-0.2) X10*3/uL Abs Immat Gran (auto) 0.02 (0.00-0.03) X10*3/uL Absolute Neuts (auto) 4.4 (2.0-8.3) X10*3/uL Absolute Nucleated RBC 0.000 (0.0-0.012) X10*3/uL Nucleated RBC % (auto) 0.0 (0.0-0.2) /100WBC Smear Tech's Comments VERIFIED Hold Blue Top SEE NOTE Sodium 137 (135-145) mmol/L Potassium 3.2 L (3.3-5.1) mmol/L Chloride 102 (96-108) mmol/L Carbon Dioxide 26 (22-29) mmol/L Anion Gap 12 (12-20) BUN 7 L (9-16) mg/dL Creatinine 0.66 (0.5-1.4) mg/dL Estim Creat Clear Calc 133.7 Estimated GFR > 60 Random Glucose 113 (60-115) mg/dL Calcium 8.8 (8.4-10.2) mg/dL Total Bilirubin 0.5 (0.0-1.0) mg/dL Direct Bilirubin 0.2 (0.0-0.5) mg/dL AST 17 (5-31) U/L ALT 17 (0-31) U/L Alkaline Phosphatase 108 (39-117) U/L Total Protein 7.5 (6.5-8.0) g/dL Albumin 3.7 (3.5-5.0) g/dL Lipase 22 (8-78) U/L Urine Color Urine Appearance Urine pH (5.0-8.0) Ur Specific [place] (1.005-1.025) Urine Protein (NEG-TRACE) MG/DL Urine Glucose (UA) (NEG) MG/DL Urine Ketones (NEG) MG/DL Urine Blood (NEG) Urine Nitrite (NEG) Ur Leukocyte Esterase (NEG) COVID-19 (JOSEE) (Negative) COVID-19 Clin Com 07/18/20 07/18/20 Range/Units 19:20 19:58 WBC (4.8-10.8) X10*3/uL RBC (4.20-5.50) X10*6/uL Hgb (12.0-16.0) g/dl Hct (37-47) % MCV (80-98) fL MCH (27.0-33.0) pg MCHC (31.0-35.0) g/dl RDW (11.0-16.0) % Plt Count (160-400) X10*3/uL MPV (9.4-12.3) fL Immature Gran % (Auto) (0.0-0.4) % Neut % (Auto) (45-73) % Lymph % (Auto) (20-40) % Hood % (Auto) (2-11) % Eos % (Auto) (0-4) % Baso % (Auto) (0-2) % Lymph # (Auto) (1.2-4.9) X10*3/uL Hood # (Auto) (0.1-1.2) X10*3/uL Eos # (Auto) (0.0-0.4) X10*3/uL Baso # (Auto) (0.0-0.2) X10*3/uL Abs Immat Gran (auto) (0.00-0.03) X10*3/uL Absolute Neuts (auto) (2.0-8.3) X10*3/uL Absolute Nucleated RBC (0.0-0.012) X10*3/uL Nucleated RBC % (auto) (0.0-0.2) /100WBC Smear Tech's Comments Hold Blue Top Sodium (135-145) mmol/L Potassium (3.3-5.1) mmol/L Chloride (96-108) mmol/L Carbon Dioxide (22-29) mmol/L Anion Gap (12-20) BUN (9-16) mg/dL Creatinine (0.5-1.4) mg/dL Estim Creat Clear Calc Estimated GFR Random Glucose (60-115) mg/dL Calcium (8.4-10.2) mg/dL Total Bilirubin (0.0-1.0) mg/dL Direct Bilirubin (0.0-0.5) mg/dL AST (5-31) U/L ALT (0-31) U/L Alkaline Phosphatase (39-117) U/L Total Protein (6.5-8.0) g/dL Albumin (3.5-5.0) g/dL Lipase (8-78) U/L Urine Color YELLOW Urine Appearance HAZY Urine pH 6.5 (5.0-8.0) Ur Specific [place] <= 1.005 (1.005-1.025) Urine Protein NEG (NEG-TRACE) MG/DL Urine Glucose (UA) NEG (NEG) MG/DL Urine Ketones 15 (NEG) MG/DL Urine Blood TRACE (NEG) Urine Nitrite NEG (NEG) Ur Leukocyte Esterase 1+ H (NEG) COVID-19 (JOSEE) Negative (Negative) COVID-19 Clin Com See Note ECG Data Attestation: I personally reviewed and interpreted this ECG as follows: ECG interpretation date: 07/18/20 ECG interpretation time: 16:53 Interpretation: Rate: 96 Rhythm: NSR [place]: normal Normal P waves. Normal NOEL. Normal QRS complex. ST T wave : normal, no CECE qTC: normal no prior studies: no acute ischemia The study has been interpreted contemporaneously by me. . Discharge Plan Discharge Clinical Impression: Right ureteral stone Vomiting Qualifiers: Vomiting type: unspecified Vomiting Intractability: intractable Nausea presence: with nausea Qualified Code(s): R11.2 - Nausea with vomiting, unspecified Abdominal pain Qualifiers: Abdominal location: right upper quadrant Qualified Code(s): R10.11 - Right upper quadrant pain Patient Disposition: Admitted As Inpatient [facility] Past Medical History Attestation statement: The following information was validated with the patient. Medical History Diabetic neuropathy History of diabetes mellitus resolved following bariatric surgery Hypoglycemia after GI (gastrointestinal) surgery Intestinal malabsorption Localized osteoarthritis of knees, bilateral Obesity Secondary adrenal insufficiency Seropositive rheumatoid arthritis Surgical History H/O removal of cyst History of esophagogastroduodenoscopy (EGD) History of hip replacement History of kidney surgery History of Ofelia-en-Y gastric bypass Hx laparoscopic cholecystectomy Hx of hernia repair S/P NITHYA (total abdominal hysterectomy) Family History Family History Father Epilepsia Depression Anxiety Colon cancer Mother HTN (hypertension) DM (diabetes mellitus) Heart disease RA (rheumatoid arthritis) Sister No problems noted. Sister No problems noted. Social History Social History Alcohol intake: never Smoking Status: Never smoker Use of substances other than those prescribed or required for medical reasons: No Advance Directives: No Advance Directives Information Provided: No
[2020-07-18 16:32] LABS: SLIDE REVIEW VERIFIED
--- NOTE | 2020-07-18 16:33 | ECG_ITS ---
Test Reason : ABDOMINAL PAIN Blood Pressure : / mmHG Vent. Rate : 096 BPM Atrial Rate : 096 BPM P-R Int : 152 ms QRS Dur : 098 ms QT Int : 370 ms P-R-T Axes : 023 063 031 degrees QTc Int : 467 ms Normal sinus rhythm Normal ECG When compared with ECG of 28-OCT-2019 18:30, No significant change was found Referred By: Darcy Sheffield Electronically Signed By:WENDY GONZALEZ
[2020-07-18] MEDS: iohexoL 350 MG/ML 100 ML INFUS..BTL IV (18:32)
[2020-07-18] MEDS: Pantoprazole Sodium 40 MG/10 ML VIAL IVPUSH (18:38)
[2020-07-18] MEDS: Morphine Sulfate 4 MG/ML CARTRIDGE IVPUSH (18:38)
[2020-07-18] MEDS: Potassium Chloride/H20 10 MEQ/100 ML PIGGYBACK 100 MEQ IV ×2 (18:38→19:46)
[2020-07-18] MEDS: Hydrocortisone Sod Succ/PF 100 MG VIAL 50 MG IVPUSH (18:38)
[2020-07-18] MEDS: 0.9 % Sodium Chloride 1,000 ML 999 ML IVCONT ×2 (18:39→21:57)
[2020-07-18] MEDS: ondansetron HCL 4 MG/2 ML VIAL IVPUSH (18:39)
[2020-07-18 19:44] LABS: COVID-19 Test Negative (Negative); IDNOW Serial# 9DD0AD1C
--- NOTE | 2020-07-18 19:53 | P.HPHOSP_ITS ---
History of Present Illness Date of Service: 07/18/20 Chief Complaint: Nausea/vomiting 40-year-old female with a past medical history of rheumatoid arthritis, diabetes, history of adrenal insufficiency on hydrocortisone, obesity status post gastric bypass 2 years ago-[place] procedure presented to the hospital toda y with a chief complaint of nausea vomiting. Patient mentioned that over the past 5 days he has been having right-sided flank pain associated with nausea and vomiting; unable to keep anything down, has been missing her home medications. Complains of abdominal discomfort. Denies any chest pain palpitations. Denies any fever chills cough. Also complains of headaches. Denies any blurry visions. Denies any diarrhea or blood in the vomitus. Denies any urinary symptoms. Patient also complained of subjective chills/fevers Review of all other systems is negative except mentioned above ER course: Per ER team patient CT scan showed right-sided hydronephrosis and renal calculus. Discussed with Dr. dixon from Urology who recommended admission and will be evaluated in the morning. Urinalysis pending; patient was given IV hydrocortisone, morphine. CT head showed no acute findings. [facility] Medical History Diabetic neuropathy History of diabetes mellitus resolved following bariatric surgery Hypoglycemia after GI (gastrointestinal) surgery Intestinal malabsorption Localized osteoarthritis of knees, bilateral Obesity Secondary adrenal insufficiency Seropositive rheumatoid arthritis Family History Father Epilepsia Depression Anxiety Colon cancer Mother HTN (hypertension) DM (diabetes mellitus) Heart disease RA (rheumatoid arthritis) Sister No problems noted. Sister No problems noted. Surgical History H/O removal of cyst History of esophagogastroduodenoscopy (EGD) History of hip replacement History of kidney surgery History of Ofelia-en-Y gastric bypass Hx laparoscopic cholecystectomy Hx of hernia repair S/P NITHYA (total abdominal hysterectomy) Social History Alcohol intake: never Smoking Status: Never smoker Meds Allergies Allergy/AdvReac Type Severity Reaction Status Date / Time pt states no food/medication Allergy Unknown na Uncoded 01/16/20 10:56 a Active Medications: Current Medications Generic Name Dose Route Start Last Admin Trade Name Shola PRN Reason Stop Dose Admin Docusate Sodium 100 mg 07/18/20 19:44 Docusate Sodium 100 Mg Capsule PO DAILY PRN Constipation Sodium Chloride 1,000 mls @ 999 mls/hr 07/18/20 19:15 Ns IVCONT 07/18/20 20:15 .Q1H1M CODI Potassium Chloride/Dextrose/Sod Cl 20 meq in 1,000 mls @ 100 mls/hr 07/18/20 19:45 IVCONT .Q10H CODI Morphine Sulfate 1 mg 07/18/20 19:53 Morphine Sulfate 2 Mg/Ml Cartridge IVPUSH Q4H PRN Pain, Severe (Pain Scale 7-10) Sodium Chloride 3 ml 07/19/20 00:00 0.9 % Sodium Chloride Flush 3 Ml Syringe IVFLUSH QSHIFT [facility] Home Medications Medication Instructions Recorded Confirmed Last Taken Type bupropion HCl 100 mg tablet 100 mg PO .once a day tab 01/13/20 07/18/20 Unknown History cyclobenzaprine 5 mg tablet 5 mg PO TID PRN 01/13/20 07/18/20 Unknown History metoprolol tartrate 25 mg tablet 25 mg PO BID 01/13/20 07/18/20 Unknown History oxycodone 5 mg tablet 5 mg PO Q4H PRN 01/13/20 07/18/20 Unknown History pantoprazole 40 mg tablet,delayed 40 mg PO DAILY 01/13/20 07/18/20 Unknown History release sertraline 100 mg tablet 100 mg PO DAILY 01/13/20 07/18/20 Unknown History spironolactone 25 mg tablet 25 mg PO DAILY 01/13/20 07/18/20 Unknown History vitamin B complex 1 tab PO DAILY 01/13/20 07/18/20 Unknown History zolpidem 10 mg tablet 10 mg PO BEDTIME PRN 04/02/20 07/18/20 Unknown History blood sugar diagnostic #10 ea 06/04/20 07/18/20 Unknown History cholecalciferol (vitamin D3) 50 50 mcg PO DAILY 06/04/20 07/18/20 Unknown H istory mcg (2,000 unit) capsule furosemide 40 mg tablet 120 mg PO Q OTHER DAY PRN 06/04/20 07/18/20 Unknown History lancets 33 gauge #100 ea 06/04/20 07/18/20 Unknown History sacubitril 24 mg-valsartan 26 mg 1 tab PO BID 06/04/20 07/18/20 Unknown History tablet alcohol swabs 0 pad TOPICAL 07/27/20 Unknown History diclofenac sodium 1 % topical gel 1 ea TOPICAL QID 07/27/20 Unknown History gabapentin 100 mg capsule 0 mg PO 07/27/20 Unknown History Physical Exam Vital Signs and Narrative: Vital Signs: Last Vital Signs Temp 99.6 F 07/18/20 18:58 Pulse 99 07/18/20 18:58 Resp 18 07/18/20 18:58 BP 112/57 L 07/18/20 19:32 Pulse Ox 98 07/18/20 18:58 Body Mass Index 41.5 Gen: Appears be in no acute distress HEENT: NCAT, Moist mucosa. Pulmonary: Vesicular breath sounds, fair air entry CVS: Normal S1-S2 Abdomen: BS+, Soft, mildly tender diffusely; no guarding no rigidity Extremities: Warm well perfused Neuro: Alert and awake. Results Labs CBC and Chem 7: 07/19/20 06:08 07/19/20 06:08 Labs: Laboratory Results - last 24 hr 07/18/20 07/18/20 07/18/20 15:46 15:46 15:46 MCV 79.7 L MCH 25.4 L MCHC 31.9 RDW 17.9 H Plt Count 234 D MPV 9.9 Immature Gran % (Auto) 0.3 Neut % (Auto) 63.1 Lymph % (Auto) 14.5 L Becker % (Auto) 21.6 H Eos % (Auto) 0.4 Baso % (Auto) 0.1 Lymph # (Auto) 1.0 L Becker # (Auto) 1.5 H Eos # (Auto) 0.0 Baso # (Auto) 0.0 Abs Immat Gran (auto) 0.02 Absolute Neuts (auto) 4.4 Absolute Nucleated RBC 0.000 Nucleated RBC % (auto) 0.0 Smear Tech's Comments VERIFIED Hold Blue Top SEE NOTE Anion Gap 12 Estim Creat Clear Calc 133.7 Estimated GFR > 60 Random Glucose 113 Calcium 8.8 Total Bilirubin 0.5 Direct Bilirubin 0.2 AST 17 ALT 17 Alkaline Phosphatase 108 Total Protein 7.5 Albumin 3.7 Lipase 22 COVID-19 ([facility]) COVID-19 Clin Com 07/18/20 19:20 MCV MCH MCHC RDW Plt Count MPV Immature Gran % (Auto) Neut % (Auto) Lymph % (Auto) Becker % (Auto) Eos % (Auto) Baso % (Auto) Lymph # (Auto) Becker # (Auto) Eos # (Auto) Baso # (Auto) Abs Immat Gran (auto) Absolute Neuts (auto) Absolute Nucleated RBC Nucleated RBC % (auto) Smear Tech's Comments Hold Blue Top Anion Gap Estim Creat Clear Calc Estimated GFR Random Glucose Calcium Total Bilirubin Direct Bilirubin AST ALT Alkaline Phosphatase Total Protein Albumin Lipase COVID-19 ([facility]) Negative COVID-19 Clin Com See Note Imaging Radiologist's Impressions: Impressions Abdomen/Pelvis CT 07/18/20 16:31 IMPRESSION: 1. Obstructing right distal ureteral 5 mm calculus with right-sided hydronephrosis and ureterectasis down to the level of the stone about 4 cm above the bladder. 2. Nonobstructing bilateral intrarenal calculi. 3. Incidentally noted cholecystectomy, Ofelia-en-Y type gastric bypass, hysterectomy, right hip replacement and degenerative changes L5-S1. Head CT 07/18/20 16:34 IMPRESSION: No acute intracranial process seen. Assessment and Plan (1) Abdominal pain: Qualifiers: Abdominal location: right upper quadrant Qualified Code(s): R10.11 - Right upper quadrant pain Status: Resolved 40-year-old female with a past medical history of rheumatoid arthritis, diabetes, history of COVID in April, obesity status post bariatric surgery, hypertension, adrenal insufficiency on hydrocortisone presented to the hospital with a chief complaint of nausea/vomiting/abdominal pain: Noted to have renal calculus with hydronephrosis. Patient had poor oral intake. Admitted for further management. Renal calculi/hydronephrosis: Urology was notified. Pain control. UTI: c/w ceftriaxone; f/u Cultures Nausea/vomiting: Supportive care. IV fluids. Diabetes: Insulin sliding scale. Hypokalemia: Repleted. History of adrenal insufficiency: Patient is on 5 mg of hydrocortisone at home. Will keep the patient on hydrocortisone 50 mg IV t.i.d. given acute infection/stress. For all other chronic conditions, home medications will be continued as ivette erated. DVT prophylaxis: Lovenox Code status: Full code
[2020-07-18 20:06] LABS: Glucose Urine UA NEG (NEG); Leukocyte Esterase Urine 1+ (NEG); Nitrite Urine NEG (NEG); PH 6.5 (5.0-8.0); Specific Gravity - Urine <= 1.005 (1.005-1.025); UACC Culture Trigger YES; Urine Blood TRACE (NEG); Urine Ketones 15 MG/DL (NEG); Urine Protein NEG (NEG-TRACE)
[2020-07-18 20:08] LABS: Appearance Urine HAZY; Color Urine YELLOW
[2020-07-18 20:16] LABS: Bacteria Urine 1+ /LPF; Squamous Epithelial Cell Urine TRACE /LPF; UPreg QC Valid YES; Urine Pregnancy NEGATIVE (NEGATIVE)
[2020-07-18 21:37] LABS: Glucose, Whole Blood 135 mg/dL (60-115)
[2020-07-18] MEDS: cefTRIAXone sodium 1 GM in 0.9 % Sodium Chloride 50 ML IV (21:57)
[2020-07-18] MEDS: KCl 20 mEq in 5% Dex/0.45% Sod 20 MEQ/1,000 ML IV.SOLN 100 MEQ IVCONT (22:08)
[2020-07-19] VITALS (16 sets, daily range): BP systolic 92–117; BP diastolic 54–75; PULSE 58–90; RESP 16–18; TEMP 36.1–36.7; O2SAT 94–100
[2020-07-19] MEDS: 0.9 % Sodium Chloride Flush 3 ML SYRINGE IVFLUSH (01:46)
[2020-07-19] MEDS: Morphine Sulfate 2 MG/ML CARTRIDGE 1 MG IVPUSH ×2 (01:47→08:04)
[2020-07-19] MEDS: Hydrocortisone Sod Succ/PF 100 MG VIAL 50 MG IVPUSH (03:41)
[2020-07-19 06:22] LABS: MANUAL DIFF FLAG NO
[2020-07-19 06:48] LABS: Anion Gap 10 (12-20); Blood Urea Nitrogen 5 mg/dL (9-16); Calcium 8.2 mg/dL (8.4-10.2); Carbon Dioxide 25 mmol/L (22-29); Chloride 110 mmol/L (96-108); Creatinine Clr Calc Pharmacy 157.6; Estimated Glomerular Filt Rate > 60; Glucose Random 124 mg/dL (60-115); Potassium 3.9 mmol/L (3.3-5.1); Sodium 141 mmol/L (135-145)
[2020-07-19 06:57] LABS: Basophils Percent Auto 0.4 % (0-2); Eosinophils Percent Auto 0.2 % (0-4); Hematocrit 30.6 % (37-47); Hemoglobin 9.6 g/dl (12.0-16.0); Imm Gran Abs Auto 0.02 X10*3/uL (0.00-0.03); Imm Gran Pct Auto 0.4 % (0.0-0.4); Lymphocytes Percent Auto 17.4 % (20-40); Mean Corpuscular HGB Conc 31.4 g/dl (31.0-35.0); Mean Corpuscular Hemoglobin 25.2 pg (27.0-33.0); Mean Corpuscular Volume 80.3 fL (80-98); Mean Platelet Volume 10.2 fL (9.4-12.3); Monocytes Absolute Auto 0.7 X10*3/uL (0.1-1.2); Monocytes Percent Auto 12.3 % (2-11); Neutrophils Absolute Auto 3.8 X10*3/uL (2.0-8.3); Neutrophils Percent Auto 69.3 % (45-73); Platelet Count 213 X10*3/uL (160-400); Red Blood Count 3.81 X10*6/uL (4.20-5.50); Red Cell Distribution Width 18.2 % (11.0-16.0); White Blood Count 5.5 X10*3/uL (4.8-10.8)
--- NOTE | 2020-07-19 08:05 | PC.NURSE ---
PT SLEEPING BUT EASILY AROUSABLE, RESPIRATIONS EVEN AND UNLABORED. PT REPORTS 10/10 PAIN IN THE RIGHT FLANK AREA, DENIES N/V. DR WAY AT BEDSIDE PLAN TO OPERATE AROUND 1100 TODAY. VS STABLE,
--- NOTE | 2020-07-19 08:10 | P.CNUR_ITS ---
History of Present Illness Consult details Consult date: 07/19/20 Narrative: Gita is a 40-year-old female Presented to the hospital through the emergency room with pain 9/10 and nausea with vomiting. Pain present on right lower flank radiating to right lower quadrant CT imaging performed 6 mm distal right ureteric stone with [id number] hydroureteronephrosis Prior history of stones and procedure approximately 1 year ago Underwent gastric bypass 2019 Based on her inability to retain oral medications and hydration coupled with nausea would recommend intervention for stone PMFSH Past Medical History Medical History Diabetic neuropathy History of diabetes mellitus resolved following bariatric surgery Hypoglycemia after GI (gastrointestinal) surgery Intestinal malabsorption Localized osteoarthritis of knees, bilateral Obesity Secondary adrenal insufficiency Seropositive rheumatoid arthritis Family History Family History Father Epilepsia Depression Anxiety Colon cancer Mother HTN (hypertension) DM (diabetes mellitus) Heart disease RA (rheumatoid arthritis) Sister No problems noted. Sister No problems noted. Surgical History Surgical History H/O removal of cyst History of esophagogastroduodenoscopy (EGD) History of hip replacement History of kidney surgery History of Ofelia-en-Y gastric bypass Hx laparoscopic cholecystectomy Hx of hernia repair S/P NITHYA (total abdominal hysterectomy) Social History Social History Alcohol intake: never Smoking Status: Never smoker Use of substances other than those prescribed or required for medical reasons: No Advance Directives: No Advance Directives Information Provided: No Meds Allergies Allergy/AdvReac Type Severity Reaction Status Date / Time pt states no food/medication Allergy Unknown na Uncoded 01/16/20 10:56 a Active Medications: Current Medications Generic Name Dose Route Start Last Admin Trade Name Freq PRN Reason Stop Dose Admin Docusate Sodium 100 mg 07/18/20 19:44 Docusate Sodium 100 Mg Capsule PO DAILY PRN Constipation Hydrocortisone Sodium Succinate 50 mg 07/19/20 03:00 07/19/20 03:41 Hydrocortisone Sod Succ/Pf 100 Mg Vial IVPUSH 50 mg Q8H CODI Administration Potassium Chloride/Dextrose/Sod Cl 20 meq in 1,000 mls @ 100 mls/hr 07/18/20 19:45 07/18/20 22:08 IVCONT 100 mls/hr .Q10H [facility] Administration Ceftriaxone Sodium 1 gm/ 50 mls @ 100 mls/hr 07/18/20 21:30 Sodium Chloride IV Q24H [facility] Insulin Human Lispro 0 unit 07/19/20 07:30 Insulin Lispro 100 Unit/Ml 3 Ml Vial SUBCUT QIDACHS [facility] Protocol Morphine Sulfate 1 mg 07/18/20 19:53 07/19/20 08:04 Morphine Sulfate 2 Mg/Ml Cartridge IVPUSH 1 mg Q4H PRN Administration Pain, Severe (Pain Scale 7-10) Sodium Chloride 3 ml 07/19/20 00:00 07/19/20 01:46 0.9 % Sodium Chloride Flush 3 Ml Syringe IVFLUSH 3 ml QSHIFT [facility] Administration Home Medications Medication Instructions Recorded Confirmed Last Taken Type bupropion HCl 100 mg tablet 100 mg PO .once a day tab 01/13/20 07/18/20 Unknown History cyclobenzaprine 5 mg tablet 5 mg PO TID PRN 01/13/20 07/18/20 Unknown History metoprolol tartrate 25 mg tablet 25 mg PO BID 01/13/20 07/18/20 Unknown History oxycodone 5 mg tablet 5 mg PO Q4H PRN 01/13/20 07/18/20 Unknown History pantoprazole 40 mg tablet,delayed 40 mg PO DAILY 01/13/20 07/18/20 Unknown History release sertraline 100 mg tablet 100 mg PO DAILY 01/13/20 07/18/20 Unknown History spironolactone 25 mg tablet 25 mg PO DAILY 01/13/20 07/18/20 Unknown History vitamin B complex 1 tab PO DAILY 01/13/20 07/18/20 Unknown History zolpidem 10 mg tablet 10 mg PO BEDTIME PRN 04/02/20 07/18/20 Unknown History blood sugar diagnostic #10 ea 06/04/20 07/18/20 Unknown History cholecalciferol (vitamin D3) 50 50 mcg PO DAILY 06/04/20 07/18/20 Unknown History mcg (2,000 unit) capsule furosemide 40 mg tablet 120 mg PO Q OTHER DAY PRN 06/04/20 07/18/20 Unknown History lancets 33 gauge #100 ea 06/04/20 07/18/20 Unknown History sacubitril 24 mg-valsartan 26 mg 1 tab PO BID 06/04/20 07/18/20 Unknown History tablet Physical Exam Vital Signs: Vital Signs: Last Vital Signs Temp 98.0 F 07/19/20 07:54 Pulse 69 07/19/20 07:54 Resp 18 07/19/20 08:04 BP 117/75 07/19/20 07:54 Pulse Ox 97 07/19/20 07:54 Body Mass Index 41.5 Const: General: cooperative, healthy appearing, comfortable and no acute distress Nutritional Appearance: average body habitus Orientation/consciousness: oriented to person, oriented to place and oriented to time Eyes: General: appearance normal, both eyes and all related structures Chest: Chest palpation & inspection: normal inspection of the chest Resp: Effort & Inspection: normal respiratory effort Cardio: Rate: regular rate GI: Inspection: Yes normal to inspection Skin: Hair: normal Neuro: General: oriented to person, oriented to place and oriented to time Extrem: General: Yes normal to inspection Results Labs Result diagrams: 07/19/20 06:08 07/19/20 06:08 Labs: Abnormal lab results 07/18/20 07/18/20 07/18/20 Range/Units 15:46 15:46 19:58 RBC (4.20-5.50) X10*6/uL Hgb 11.0 L (12.0-16.0) g/dl Hct 34.5 L (37-47) % MCV 79.7 L (80-98) fL MCH 25.4 L (27.0-33.0) pg RDW 17.9 H (11.0-16.0) % Lymph % (Auto) 14.5 L (20-40) % Gregory % (Auto) 21.6 H (2-11) % Lymph # (Auto) 1.0 L (1.2-4.9) X10*3/uL Gregory # (Auto) 1.5 H (0.1-1.2) X10*3/uL Potassium 3.2 L (3.3-5.1) mmol/L Chloride (96-108) mmol/L Anion Gap (12-20) BUN 7 L (9-16) mg/dL POC Glucose (60-115) mg/dL Random Glucose (60-115) mg/dL Calcium (8.4-10.2) mg/dL Ur Leukocyte Esterase 1+ H (NEG) Urine WBC 15-29 H (0-4) /HPF 07/18/20 07/19/20 07/19/20 Range/Units 21:31 06:08 06:08 RBC 3.81 L (4.20-5.50) X10*6/uL Hgb 9.6 L (12.0-16.0) g/dl Hct 30.6 L (37-47) % MCV (80-98) fL MCH 25.2 L (27.0-33.0) pg RDW 18.2 H (11.0-16.0) % Lymph % (Auto) 17.4 L (20-40) % Gregory % (Auto) 12.3 H (2-11) % Lymph # (Auto) 1.0 L (1.2-4.9) X10*3/uL Gregory # (Auto) (0.1-1.2) X10*3/uL Potassium (3.3-5.1) mmol/L Chloride 110 H (96-108) mmol/L Anion Gap 10 L (12-20) BUN 5 L (9-16) mg/dL POC Glucose 135 H (60-115) mg/dL Random Glucose 124 H (60-115) mg/dL Calcium 8.2 L D (8.4-10.2) mg/dL Ur Leukocyte Esterase (NEG) Urine WBC (0-4) /HPF Short CBC 07/18/20 07/19/20 Range/Units 15:46 06:08 WBC 7.0 5.5 (4.8-10.8) X10*3/uL Hgb 11.0 L 9.6 L (12.0-16.0) g/dl Hct 34.5 L 30.6 L (37-47) % Plt Count 234 D 213 (160-400) X10*3/uL BMP 07/18/20 07/19/20 15:46 06:08 Sodium 137 141 Potassium 3.2 L 3.9 D Chloride 102 110 H Carbon Dioxide 26 25 BUN 7 L 5 L Creatinine 0.66 0.56 Calcium 8.8 8.2 L D Liver Function 07/18/20 Range/Units 15:46 Total Bilirubin 0.5 (0.0-1.0) mg/dL Direct Bilirubin 0.2 (0.0-0.5) mg/dL AST 17 (5-31) U/L ALT 17 (0-31) U/L Alkaline Phosphatase 108 (39-117) U/L Albumin 3.7 (3.5-5.0) g/dL Urine 07/18/20 07/18/20 Range/Units 19:58 19:58 Urine Color YELLOW Urine Appearance HAZY Urine pH 6.5 (5.0-8.0) Ur Specific [place] <= 1.005 (1.005-1.025) Urine Protein NEG (NEG-TRACE) MG/DL Urine Glucose (UA) NEG (NEG) MG/DL Urine Test NEGATIVE (NEGATIVE) All other labs normal. Assessment and Plan (1) Right ureteral stone: Status: Acute Ureteroscopy We discussed the nature of the decision and reasonable alternatives for performing the above surgery. Interventions include chemical dissolution, ESWL, ureteroscopy with laser lithotripsy and stent placement, PCNL. Options such as medical therapy were discussed. The relative uncertainties and benefits related to each alternate procedure were adequately discussed. General surgical risks including, but not limited to, pain, bleeding, infection, myocardial infarction, pulmonary embolus, deep vein thrombosis and cerebrovascular accident which may result in further hos pitalization were discussed. Full disclosure of the procedure as well as all major risks, benefits and complications were discussed including but not limited to damage to the urethra, bladder and kidney infection, damage to the ureter, stent migration or malposition, scarring to the renal pelvis, remnant stone fragments, subsequent stone passage with need for secondary procedures. The overall secondary procedure rate is approximately 10-15%. The success rate of the procedure was discussed. Success of the procedure in the short-term does not necessarily guarantee that long-term success will be maintained. Suitable follow up will need to be maintained. The patient showed understanding of discussion and wishes to proceed with - cystoscopy, retrograde, ureteroscopy, possible lithotripsy/stone basketing and stent on the right side
--- NOTE | 2020-07-19 08:50 | PC.NURSE ---
report given to med/owner oral surgeon
[2020-07-19] MEDS: levoFLOXacin 500 MG TABLET PO (08:52)
[2020-07-19] MEDS: KCl 20 mEq in 5% Dex/0.45% Sod 20 MEQ/1,000 ML IV.SOLN 100 MEQ IVCONT (08:53)
[2020-07-19 09:10] LABS: Glucose, Whole Blood 131 mg/dL (60-115)
--- NOTE | 2020-07-19 09:33 | P.PNIM_ITS ---
Subjective Subjective Date of Service: 07/19/20 Interval History: Still with flank. No fever Review of Systems Gen: no fever Resp: no sob, no cough CV: no chest, no BACON, no leg edema GI/: No n/v, no abd pain, flank pain Neuro: No confusion Physical Exam Vital Signs: Vital Signs: Last Vital Signs Temp 98.0 F 07/19/20 07:54 Pulse 69 07/19/20 07:54 Resp 18 07/19/20 08:04 BP 117/75 07/19/20 07:54 Pulse Ox 97 07/19/20 07:54 Body Mass Index 41.5 Const: Other: General: AO X 3, no acute distress Resp: CTA bilateral CVS: S1,S2,RRR GI/: +BS, NT, no distention, mild right flank tenderness Skin: No rash Neuro: motor grossly intact Psych: appropriate affect Objective Data Current Medications Generic Name Dose Route Start Last Admin Trade Name Freq PRN Reason Stop Dose Admin Docusate Sodium 100 mg 07/18/20 19:44 Docusate Sodium 100 Mg Capsule PO DAILY PRN Constipation Hydrocortisone Sodium Succinate 50 mg 07/19/20 03:00 07/19/20 03:41 Hydrocortisone Sod Succ/Pf 100 Mg Vial IVPUSH 50 mg Q8H CODI Administration Potassium Chloride/Dextrose/Sod Cl 20 meq in 1,000 mls @ 100 mls/hr 07/18/20 19:45 07/19/20 08:53 IVCONT 100 mls/hr .Q10H CODI Administration Ceftriaxone Sodium 1 gm/ 50 mls @ 100 mls/hr 07/18/20 21:30 Sodium Chloride IV Q24H [facility] Insulin Human Lispro 0 unit 07/19/20 07:30 Insulin Lispro 100 Unit/Ml 3 Ml Vial SUBCUT QIDACHS [facility] Protocol Morphine Sulfate 1 mg 07/18/20 19:53 07/19/20 08:04 Morphine Sulfate 2 Mg/Ml Cartridge IVPUSH 1 mg Q4H PRN Administration Pain, Severe (Pain Scale 7-10) Sodium Chloride 3 ml 07/19/20 00:00 07/19/20 01:46 0.9 % Sodium Chloride Flush 3 Ml Syringe IVFLUSH 3 ml QSHIFT CODI Administration Labs CBC & Chem 7: 07/19/20 06:08 07/19/20 06:08 Microbiology Microbiology Results: Microbiology 07/18/20 19:58 Urine clean catch - Clean Catch Midstream Urine Culture - Preliminary Gram negative dolores Assessment and Plan (1) Abdominal pain: Status: Acute Assessment and Plan: 40-year-old female with a past medical history of rheumatoid arthritis, diabetes, history of COVID in April, obesity status post bariatric surgery, hypertension, adrenal insufficiency on hydrocortisone presented to the hospital with a chief complaint of nausea/vomiting/abdominal pain: Noted to have renal calculus with hydronephrosis. Patient had poor oral intake. Admitted for further management. Renal calculi/hydronephrosis: Cystoscopy and stone removal by Uro today UTI/Pyelo--culture gram negative dolores--continue ceftriaxone and to Ceftin at discharge Nausea/vomiting: Supportive care. IV fluids. Diabetes: Insulin sliding scale. Hypokalemia: Resolved History of adrenal insufficiency: Patient is on 5 mg of hydrocortisone at home. Will keep the patient on hydrocortisone 50 mg IV t.i.d. given acute infection/stress. For all other chronic conditions, home medications will be continued as tolerated. DVT prophylaxis: Lovenox Code status: Full code
--- NOTE | 2020-07-19 09:52 | PC.NURSE ---
pt reports feeling a little better after the morphine, pain at 7/10 pt of to sss
[2020-07-19 10:09] LABS: Glucose, Whole Blood 118 mg/dL (60-115)
--- NOTE | 2020-07-19 10:12 | P.CONAN_ITS ---
[facility] Active Problems Active Problems: All Active Problems (Updated 07/18/20 @ 19:32 by Darcy cornejo DO) COVID-19 (Acute) Vomiting (Acute) Abdominal pain (Acute) Right ureteral stone (Acute) History of diabetes mellitus resolved following bariatric surgery (Acute) Diabetic neuropathy (Acute) Hypoglycemia after GI (gastrointestinal) surgery (Acute) Secondary adrenal insufficiency (Acute) BMI 32.0-32.9,adult (Acute) Obesity (Acute) Localized osteoarthritis of knees, bilateral (Acute) Seropositive rheumatoid arthritis (Acute) Past Medical History Medical History Diabetic neuropathy History of diabetes mellitus resolved following bariatric surgery Hypoglycemia after GI (gastrointestinal) surgery Intestinal malabsorption Localized osteoarthritis of knees, bilateral Obesity Secondary adrenal insufficiency Seropositive rheumatoid arthritis Family History Family History Father Epilepsia Depression Anxiety Colon cancer Mother HTN (hypertension) DM (diabetes mellitus) Heart disease RA (rheumatoid arthritis) Sister No problems noted. Sister No problems noted. Surgical History Surgical History H/O removal of cyst History of esophagogastroduodenoscopy (EGD) History of hip replacement History of kidney surgery History of [place]-en-Y gastric bypass Hx laparoscopic cholecystectomy Hx of hernia repair S/P NITHYA (total abdominal hysterectomy) Social History Social History Alcohol intake: never Smoking Status: Never smoker Meds Allergies Allergy/AdvReac Type Severity Reaction Status Date / Time pt states no food/medication Allergy Unknown na Uncoded 01/16/20 10:56 a Active Medications: Current Medications Generic Name Dose Route Start Last Admin Trade Name Freq PRN Reason Stop Dose Admin Docusate Sodium 100 mg 07/18/20 19:44 Docusate Sodium 100 Mg Capsule PO DAILY PRN Constipation Hydrocortisone Sodium Succinate 50 mg 07/19/20 03:00 07/19/20 03:41 Hydrocortisone Sod Succ/Pf 100 Mg Vial IVPUSH 50 mg Q8H CODI Administration Potassium Chloride/Dextrose/Sod Cl 20 meq in 1,000 mls @ 100 mls/hr 07/18/20 19:45 07/19/20 08:53 IVCONT 100 mls/hr .Q10H CODI Administration Ceftriaxone Sodium 1 gm/ 50 mls @ 100 mls/hr 07/18/20 21:30 07/19/20 09:36 Sodium Chloride IV Not Given Q24H [facility] Insulin Human Lispro 0 unit 07/19/20 07:30 07/19/20 09:36 Insulin Lispro 100 Unit/Ml 3 Ml Vial SUBCUT Not Given QIDACHS [facility] Protocol Morphine Sulfate 1 mg 07/18/20 19:53 07/19/20 08:04 Morphine Sulfate 2 Mg/Ml Cartridge IVPUSH 1 mg Q4H PRN Administration Pain, Severe (Pain Scale 7-10) Sodium Chloride 3 ml 07/19/20 00:00 07/19/20 09:37 0.9 % Sodium Chloride Flush 3 Ml Syringe IVFLUSH Not Given QSHIFT [facility] Home Medications Medication Instructions Recorded Confirmed Last Taken Type bupropion HCl 100 mg tablet 100 mg PO .once a day tab 01/13/20 07/18/20 Unknown History cyclobenzaprine 5 mg tablet 5 mg PO TID PRN 01/13/20 07/18/20 Unknown History metoprolol tartrate 25 mg tablet 25 mg PO BID 01/13/20 07/18/20 Unknown History oxycodone 5 mg tablet 5 mg PO Q4H PRN 01/13/20 07/18/20 Unknown History pantoprazole 40 mg tablet,delayed 40 mg PO DAILY 01/13/20 07/18/20 Unknown History release sertraline 100 mg tablet 100 mg PO DAILY 01/13/20 07/18/20 Unknown History spironolactone 25 mg tablet 25 mg PO DAILY 01/13/20 07/18/20 Unknown History vitamin B complex 1 tab PO DAILY 01/13/20 07/18/20 Unknown History zolpidem 10 mg tablet 10 mg PO BEDTIME PRN 04/02/20 07/18/20 Unknown History blood sugar diagnostic #10 ea 06/04/20 07/18/20 Unknown History cholecalciferol (vitamin D3) 50 50 mcg PO DAILY 06/04/20 07/18/20 Unknown History mcg (2,000 unit) capsule furosemide 40 mg tablet 120 mg PO Q OTHER DAY PRN 06/04/20 07/18/20 Unknown History lancets 33 gauge #100 ea 06/04/20 07/18/20 Unknown History sacubitril 24 mg-valsartan 26 mg 1 tab PO BID 06/04/20 07/18/20 Unknown History tablet Exam Exam Date and Time: July 19, 2020 1012 Height,Weight and Vital Signs: Height 5 ft 3 in Weight 106.5 kg Last Vital Signs Temp 98.0 F 07/19/20 07:54 Pulse 69 07/19/20 07:54 Resp 18 07/19/20 08:04 BP 117/75 07/19/20 07:54 Pulse Ox 97 07/19/20 07:54 Pertinent Lab Results Pertinent Lab Results: Laboratory Tests 07/18/20 07/18/20 07/18/20 15:46 15:46 15:46 WBC 7.0 RBC 4.33 Hgb 11.0 L Hct 34.5 L MCV 79.7 L MCH 25.4 L MCHC 31.9 RDW 17.9 H Plt Count 234 D MPV 9.9 Immature Gran % (Auto) 0.3 Neut % (Auto) 63.1 Lymph % (Auto) 14.5 L [place]kinson % (Auto) 21.6 H Eos % (Auto) 0.4 Baso % (Auto) 0.1 Lymph # (Auto) 1.0 L [place]kinson # (Auto) 1.5 H Eos # (Auto) 0.0 Baso # (Auto) 0.0 Abs Immat Gran (auto) 0.02 Absolute Neuts (auto) 4.4 Absolute Nucleated RBC 0.000 Nucleated RBC % (auto) 0.0 Smear Tech's Comments VERIFIED Hold Blue Top SEE NOTE Sodium 137 Potassium 3.2 L Chloride 102 Carbon Dioxide 26 Anion Gap 12 BUN 7 L Creatinine 0.66 Estim Creat Clear Calc 133.7 Estimated GFR > 60 POC Glucose Random Glucose 113 Calcium 8.8 Total Bilirubin 0.5 Direct Bilirubin 0.2 AST 17 ALT 17 Alkaline Phosphatase 108 Total Protein 7.5 Albumin 3.7 Lipase 22 Urine Color Urine Appearance Urine pH Ur Specific [place] Urine Protein Urine Glucose (UA) Urine Ketones Urine Blood Urine Nitrite Ur Leukocyte Esterase Urine RBC Urine WBC Ur Squamous Epith Cells Urine Bacteria Urine Test COVID-19 ([facility]) COVID-19 Clin Com 07/18/20 07/18/20 07/18/20 19:20 19:58 19:58 WBC RBC Hgb Hct MCV MCH MCHC RDW Plt Count MPV Immature Gran % (Auto) Neut % (Auto) Lymph % (Auto) Atkinson % (Auto) Eos % (Auto) Baso % (Auto) Lymph # (Auto) Atkinson # (Auto) Eos # (Auto) Baso # (Auto) Abs Immat Gran (auto) Absolute Neuts (auto) Absolute Nucleated RBC Nucleated RBC % (auto) Smear Tech's Comments Hold Blue Top Sodium Potassium Chloride Carbon Dioxide Anion Gap BUN Creatinine Estim Creat Clear Calc Estimated GFR POC Glucose Random Glucose Calcium Total Bilirubin Direct Bilirubin AST ALT Alkaline Phosphatase Total Protein Albumin Lipase Urine Color YELLOW Urine Appearance HAZY Urine pH 6.5 Ur Specific [place] <= 1.005 Urine Protein NEG Urine Glucose (UA) NEG Urine Ketones 15 Urine Blood TRACE Urine Nitrite NEG Ur Leukocyte Esterase 1+ H Urine RBC 1-4 Urine WBC 15-29 H Ur Squamous Epith Cells TRACE Urine Bacteria 1+ Urine Test NEGATIVE COVID-19 ([facility]) Negative COVID-19 Clin Com See Note 07/18/20 07/19/20 07/19/20 21:31 06:08 06:08 WBC 5.5 RBC 3.81 L Hgb 9.6 L Hct 30.6 L MCV 80.3 MCH 25.2 L MCHC 31.4 RDW 18.2 H Plt Count 213 MPV 10.2 Immature Gran % (Auto) 0.4 Neut % (Auto) 69.3 Lymph % (Auto) 17.4 L Atkinson % (Auto) 12.3 H Eos % (Auto) 0.2 Baso % (Auto) 0.4 Lymph # (Auto) 1.0 L Atkinson # (Auto) 0.7 Eos # (Auto) 0.0 Baso # (Auto) 0.0 Abs Immat Gran (auto) 0.02 Absolute Neuts (auto) 3.8 Absolute Nucleated RBC 0.000 Nucleated RBC % (auto) 0.0 Smear Tech's Comments Hold Blue Top Sodium 141 Potassium 3.9 D Chloride 110 H Carbon Dioxide 25 Anion Gap 10 L BUN 5 L Creatinine 0.56 Estim Creat Clear Calc 157.6 Estimated GFR > 60 POC Glucose 135 H Random Glucose 124 H Calcium 8.2 L D Total Bilirubin Direct Bilirubin AST ALT Alkaline Phosphatase Total Protein Albumin Lipase Urine Color Urine Appearance Urine pH Ur Specific [place] Urine Protein Urine Glucose (UA) Urine Ketones Urine Blood Urine Nitrite Ur Leukocyte Esterase Urine RBC Urine WBC Ur Squamous Epith Cells Urine Bacteria Urine Test COVID-19 ([facility]) COVID-19 Clin Com 07/19/20 07/19/20 07:52 10:02 WBC RBC Hgb Hct MCV MCH MCHC RDW Plt Count MPV Immature Gran % (Auto) Neut % (Auto) Lymph % (Auto) Atkinson % (Auto) Eos % (Auto) Baso % (Auto) Lymph # (Auto) Atkinson # (Auto) Eos # (Auto) Baso # (Auto) Abs Immat Gran (auto) Absolute Neuts (auto) Absolute Nucleated RBC Nucleated RBC % (auto) Smear Tech's Comments Hold Blue Top Sodium Potassium Chloride Carbon Dioxide Anion Gap BUN Creatinine Estim Creat Clear Calc Estimated GFR POC Glucose 131 H 118 H Random Glucose Calcium Total Bilirubin Direct Bilirubin AST ALT Alkaline Phosphatase Total Protein Albumin Lipase Urine Color Urine Appearance Urine pH Ur Specific [place] Urine Protein Urine Glucose (UA) Urine Ketones Urine Blood Urine Nitrite Ur Leukocyte Esterase Urine RBC Urine WBC Ur Squamous Epith Cells Urine Bacteria Urine Test COVID-19 ([facility]) COVID-19 Clin Com Airway Mallampati Class: II TM Dist: >3cm Neck ROM: Full Loose/Missing/Broken Teeth: No Heart: RRR Lungs: CTA Assessment and Plan Assessment Anesthesia Assessment: Anesthesia Plan Discussed and Chart Reviewed Final Anesthetic Review NPO: Yes ASA Class: III Final Preanesthetic Review: Meds/Allgs Chart Reviewed, Consent Obtained/Reviewed and Anes Risks/Benef Reviewed Patient Risk: Intermediate Procedure Risk: Low Anesthetic Plan Anesthetic Plan: GA Disposition: Standard PACU
--- NOTE | 2020-07-19 11:00 | MHC.SHP ---
Pre-Procedural Eval Section A The patient is an INPATIENT: Yes Changes since office visit: No Cold of Flu in the past 2 weeks, No New Medical Problems, No Changes in Medication and No Patient answered all questions The History & Physical has been completed within 30 days and I have reviewed it.: Yes Section B Chief Complaint: Renal calculus Allergies: Allergies Allergy/AdvReac Type Severity Reaction Status Date / Time pt states no food/medication Allergy Unknown na Uncoded 01/16/20 10:56 a Plan Diagnosis/Plan: Unchanged (Right retrograde, ureteroscopy laser lithotripsy stent placement) I have reviewed the history and physical and performed a pertinent physical examination on my patient. No changes have occurred unless specified.
--- NOTE | 2020-07-19 11:37 | W.PM.OPN ---
Operative Note Operative Note Date of Service: 07/19/20 Narrative: PreOperative Diagnosis: Right distal ureteric stone Post Operative Diagnosis: Right distal ureteric stone Procedure: - right cystoscopy, retrograde - right dilatation of ureteric orifice under fluoroscopy - right ureteroscopy, laser lithotripsy, stone basketing - stent placement Surgeon: Dr Luisito Lewis Anesthesia: General Indications for procedure: 40-year-old female. Status post gastric bypass from 2018. Has recurrence stones. Unable to tolerate oral secondary to pain. Recommendation for intervention. She has had ureteroscopy previously. Procedure: After informed consent was verified patient was brought to the operating placed in supine position. Anesthesia was administered per protocol. Patient was placed in modified dorsal lithotomy position and prepped and draped in a sterile fashion. Safety pause time-out and side of surgery confirmed. Antibiotics confirmed. Twenty-two Polish cystoscope inserted per urethra. Bladder was normal. Right retrograde performed. Stone seen at junction between mid and distal ureter. Wire placed without difficulty. [place] dilator used to dilate ureteric orifice under fluoroscopy Rigid ureteroscopy performed. Stone encountered. Using a 375 nm holmium fiber the stone was broken into small pieces. Flat wire basket was used to remove samples which were sent for pathology. Once the small fragments were removed a 6 Polish by 22 cm double-J stent was placed without difficulty into renal pelvis with good coil in the bladder. She tolerated procedure well was extubated in operating room transferred to recovery area. Pathology: Stones Drains: 6 Polish by 22 cm stent
[2020-07-19] MEDS: Phenazopyridine HCL 100 MG TABLET PO (12:39)
--- NOTE | 2020-07-19 13:16 | P.DS_ITS ---
DS: Providers Provider Date of Service: 07/19/20 Date of admission: 07/18/20 19:45 Primary care physician: Nery Burgess MD Consults: 07/18/20 19:44 Consult to Urology Routine Consulting Provider: Luisito Lewis Reason for consultation: Renal Stone/Hydronephrosis DS: Diagnosis Discharge Diagnosis (1) Abdominal pain: Status: Acute DS: Medications Discharge Medications Home Medications: Home Medications Medication Instructions Recorded Confirmed bupropion HCl 100 mg tablet 100 mg PO .once a day tab 01/13/20 07/18/20 cyclobenzaprine 5 mg tablet 5 mg PO TID PRN 01/13/20 07/18/20 metoprolol tartrate 25 mg tablet 25 mg PO BID 01/13/20 07/18/20 oxycodone 5 mg tablet 5 mg PO Q4H PRN 01/13/20 07/18/20 pantoprazole 40 mg tablet,delayed 40 mg PO DAILY 01/13/20 07/18/20 release sertraline 100 mg tablet 100 mg PO DAILY 01/13/20 07/18/20 spironolactone 25 mg tablet 25 mg PO DAILY 01/13/20 07/18/20 vitamin B complex 1 tab PO DAILY 01/13/20 07/18/20 zolpidem 10 mg tablet 10 mg PO BEDTIME PRN 04/02/20 07/18/20 blood sugar diagnostic #10 ea 06/04/20 07/18/20 cholecalciferol (vitamin D3) 50 50 mcg PO DAILY 06/04/20 07/18/20 mcg (2,000 unit) capsule furosemide 40 mg tablet 120 mg PO Q OTHER DAY PRN 06/04/20 07/18/20 lancets 33 gauge #100 ea 06/04/20 07/18/20 sacubitril 24 mg-valsartan 26 mg 1 tab PO BID 06/04/20 07/18/20 tablet Previous Rx's Medication Instructions Recorded sulfasalazine 500 mg tablet 1,000 mg PO BID #120 tab 03/31/20 hydroxychloroquine 200 mg tablet 200 mg PO BID #180 tab 04/08/20 folic acid 1 mg tablet 1 mg PO QAM #30 tab 04/27/20 albuterol sulfate 2 puff INHALATION Q4-6H PRN #6.7 g 05/07/20 gabapentin 600 mg tablet 600 mg PO BEDTIME #30 tab 06/01/20 acarbose 25 mg tablet 25 mg PO TID 30 Days #90 tab 06/04/20 hydrocortisone 10 mg tablet 10 mg PO DAILY 30 Days #30 tab 06/04/20 hydrocortisone 5 mg tablet 5 mg PO DAILY 30 Days #30 tab 06/04/20 sarilumab 200 mg/1.14 mL 200 mg SUBCUT Q2W #2.28 ml 06/15/20 subcutaneous pen injector TRUEplus Lancets 33 gauge #100 ea NS 06/23/20 blood sugar diagnostic #100 ea 06/23/20 phenazopyridine [Pyridium] 100 mg PO TID PRN 4 Days #12 tab 07/19/20 sulfamethoxazole-trimethoprim 1 tab PO BID 3 Days #6 tab 07/19/20 [Bactrim DS] tamsulosin 0.4 mg PO BEDTIME 14 Days #14 cap 07/19/20 tramadol 50 mg PO Q6H PRN #14 tab 07/19/20 DS: Summary Hospital Course Hospital Course: Pt was admitted with kidney stone on right side and UTI and was taken to OR by Dr. Lewis for cystoscopy and stone removal and after that was discharged from PACU. Afebrile, WBC is normal. I saw her in ED before surgery Time Spent with Patient Time attestation: Total time spent providing and/or coordinating discharge services: Discharge coordination time: Greater than 30 minutes Physical Exam Vital Signs: Vital Signs: Last Vital Signs Temp 97.2 F 07/19/20 11:41 Pulse 86 07/19/20 12:46 Resp 18 07/19/20 12:46 BP 108/67 07/19/20 12:46 Pulse Ox 100 07/19/20 12:46 Body Mass Index 41.5 See progress note of 07/19 DS: Data Data Completed and Pending Pending studies at discharge: Pending at discharge 07/19/20 11:46 Surgical [PTH] Routine Labs on day of discharge: Laboratory Results - last 24 hr 07/18/20 07/18/20 07/18/20 15:46 15:46 15:46 WBC 7.0 RBC 4.33 Hgb 11.0 L Hct 34.5 L MCV 79.7 L MCH 25.4 L MCHC 31.9 RDW 17.9 H Plt Count 234 D MPV 9.9 Immature Gran % (Auto) 0.3 Neut % (Auto) 63.1 Lymph % (Auto) 14.5 L [place] % (Auto) 21.6 H Eos % (Auto) 0.4 Baso % (Auto) 0.1 Lymph # (Auto) 1.0 L [place] # (Auto) 1.5 H Eos # (Auto) 0.0 Baso # (Auto) 0.0 Abs Immat Gran (auto) 0.02 Absolute Neuts (auto) 4.4 Absolute Nucleated RBC 0.000 Nucleated RBC % (auto) 0.0 Smear Tech's Comments VERIFIED Hold Blue Top SEE NOTE Sodium 137 Potassium 3.2 L Chloride 102 Carbon Dioxide 26 Anion Gap 12 BUN 7 L Creatinine 0.66 Estim Creat Clear Calc 133.7 Estimated GFR > 60 POC Glucose Random Glucose 113 Calcium 8.8 Total Bilirubin 0.5 Direct Bilirubin 0.2 AST 17 ALT 17 Alkaline Phosphatase 108 Total Protein 7.5 Albumin 3.7 Lipase 22 Urine Color Urine Appearance Urine pH Ur Specific [place] Urine Protein Urine Glucose (UA) Urine Ketones Urine Blood Urine Nitrite Ur Leukocyte Esterase Urine RBC Urine WBC Ur Squamous Epith Cells Urine Bacteria Urine Test COVID-19 (JOSEE) [employer] 07/18/20 07/18/20 07/18/20 19:20 19:58 19:58 WBC RBC Hgb Hct MCV MCH MCHC RDW Plt Count MPV Immature Gran % (Auto) Neut % (Auto) Lymph % (Auto) [place] % (Auto) Eos % (Auto) Baso % (Auto) Lymph # (Auto) [place] # (Auto) Eos # (Auto) Baso # (Auto) Abs Immat Gran (auto) Absolute Neuts (auto) Absolute Nucleated RBC Nucleated RBC % (auto) Smear Tech's Comments Hold Blue Top Sodium Potassium Chloride Carbon Dioxide Anion Gap BUN Creatinine Estim Creat Clear Calc Estimated GFR POC Glucose Random Glucose Calcium Total Bilirubin Direct Bilirubin AST ALT Alkaline Phosphatase Total Protein Albumin Lipase Urine Color YELLOW Urine Appearance HAZY Urine pH 6.5 Ur Specific [place] <= 1.005 Urine Protein NEG Urine Glucose (UA) NEG Urine Ketones 15 Urine Blood TRACE Urine Nitrite NEG Ur Leukocyte Esterase 1+ H Urine RBC 1-4 Urine WBC 15-29 H Ur Squamous Epith Cells TRACE Urine Bacteria 1+ Urine Test NEGATIVE COVID-19 (JOSEE) Negative [employer] See Note 07/18/20 07/19/20 07/19/20 21:31 06:08 06:08 WBC 5.5 RBC 3.81 L Hgb 9.6 L Hct 30.6 L MCV 80.3 MCH 25.2 L MCHC 31.4 RDW 18.2 H Plt Count 213 MPV 10.2 Immature Gran % (Auto) 0.4 Neut % (Auto) 69.3 Lymph % (Auto) 17.4 L [place] % (Auto) 12.3 H Eos % (Auto) 0.2 Baso % (Auto) 0.4 Lymph # (Auto) 1.0 L [place] # (Auto) 0.7 Eos # (Auto) 0.0 Baso # (Auto) 0.0 Abs Immat Gran (auto) 0.02 Absolute Neuts (auto) 3.8 Absolute Nucleated RBC 0.000 Nucleated RBC % (auto) 0.0 Smear Tech's Comments Hold Blue Top Sodium 141 Potassium 3.9 D Chloride 110 H Carbon Dioxide 25 Anion Gap 10 L BUN 5 L Creatinine 0.56 Estim Creat Clear Calc 157.6 Estimated GFR > 60 POC Glucose 135 H Random Glucose 124 H Calcium 8.2 L D Total Bilirubin Direct Bilirubin AST ALT Alkaline Phosphatase Total Protein Albumin Lipase Urine Color Urine Appearance Urine pH Ur Specific [place] Urine Protein Urine Glucose (UA) Urine Ketones Urine Blood Urine Nitrite Ur Leukocyte Esterase Urine RBC Urine WBC Ur Squamous Epith Cells Urine Bacteria Urine Test COVID-19 (JOSEE) COVID-19 [facility] 07/19/20 07/19/20 07:52 10:02 WBC RBC Hgb Hct MCV MCH MCHC RDW Plt Count MPV Immature Gran % (Auto) Neut % (Auto) Lymph % (Auto) [place] % (Auto) Eos % (Auto) Baso % (Auto) Lymph # (Auto) [place] # (Auto) Eos # (Auto) Baso # (Auto) Abs Immat Gran (auto) Absolute Neuts (auto) Absolute Nucleated RBC Nucleated RBC % (auto) Smear Tech's Comments Hold Blue Top Sodium Potassium Chloride Carbon Dioxide Anion Gap BUN Creatinine Estim Creat Clear Calc Estimated GFR POC Glucose 131 H 118 H Random Glucose Calcium Total Bilirubin Direct Bilirubin AST ALT Alkaline Phosphatase Total Protein Albumin Lipase Urine Color Urine Appearance Urine pH Ur Specific [place] Urine Protein Urine Glucose (UA) Urine Ketones Urine Blood Urine Nitrite Ur Leukocyte Esterase Urine RBC Urine WBC Ur Squamous Epith Cells Urine Bacteria Urine Test COVID-19 (JOSEE) COVID-19 Clin Com Preliminary micro results at discharge 07/18/20 19:58 Urine Culture - Preliminary Urine clean catch - Clean Catch Midstream Gram negative dolores Discharge Plan Discharge Patient Disposition: Home Health Service Discharge Diagnosis: ureteric stone Referrals: Luisito Lewis MD [Physician] - 1 Week (stent out) Nery Burgess MD [Primary Care Provider] - None Discharge Medications: New phenazopyridine [Pyridium] 100 mg tablet 100 mg PO TID PRN (Reason: spasms) 4 Days Qty: 12 RF: 0 tamsulosin 0.4 mg capsule 0.4 mg PO BEDTIME 14 Days Qty: 14 RF: 0 tramadol 50 mg tablet 50 mg PO Q6H PRN (Reason: pain (scale score 4-6)) Qty: 14 RF: 0 sulfamethoxazole-trimethoprim [Bactrim DS] 800-160 mg tablet 1 tab PO BID 3 Days Qty: 6 RF: 0 Continued sulfasalazine 500 mg tablet 1,000 mg PO BID Qty: 120 RF: 3 hydroxychloroquine 200 mg tablet 200 mg PO BID Qty: 180 RF: 1 folic acid 1 mg tablet 1 mg PO QAM Qty: 30 RF: 11 sarilumab [Kevzara] 200 mg/1.14 mL pen injector 200 mg subcut Q2W Qty: 2.28 RF: 3 (DME) FreeStyle Lite Strips Strip See Rx Instructions .MEDSUPPLY Qty: 100 RF: 6 (DME) lancets [TRUEplus Lancets] 33 gauge misc See Rx Instructions .ROUTE .MEDSUPPLY Qty: 100 RF: 5 albuterol sulfate 90 mcg/actuation HFA aerosol inhaler 2 puff inhalation Q4-6H PRN (Reason: shortness of breath or wheezing) Qty: 6.7 RF: 0 oxycodone 5 mg tablet 5 mg PO Q4H PRN (Reason: Pain) RF: 0 vitamin B complex [B Complex-Vitamin B12] Tablet 1 tab PO DAILY RF: 0 cyclobenzaprine 5 mg tablet 5 mg PO TID PRN (Reason: Pain) RF: 0 metoprolol tartrate 25 mg tablet 25 mg PO BID RF: 0 spironolactone 25 mg tablet 25 mg PO DAILY RF: 0 pantoprazole 40 mg tablet,delayed release (DR/EC) 40 mg PO DAILY RF: 0 sertraline 100 mg tablet 100 mg PO DAILY RF: 0 bupropion HCl 100 mg tablet 100 mg PO .once a day RF: 0 zolpidem 10 mg tablet 10 mg PO BEDTIME PRN (Reason: Insomnia) RF: 0 gabapentin 600 mg tablet 600 mg PO BEDTIME Qty: 30 RF: 2 sacubitril-valsartan 24-26 mg tablet 1 tab PO BID RF: 0 (DME) lancets 33 gauge misc See Rx Instructions ea topical .MEDSUPPLY Qty: 100 RF: 0 cholecalciferol (vitamin D3) 50 mcg (2,000 unit) capsule 50 mcg PO DAILY RF: 0 (DME) blood sugar diagnostic Strip See Rx Instructions ea Not Applicable .MEDSUPPLY Qty: 10 RF: 0 furosemide 40 mg tablet 120 mg PO Q OTHER DAY PRN (Reason: Edema) RF: 0 hydrocortisone 10 mg tablet 10 mg PO DAILY 30 Days Qty: 30 RF: 4 hydrocortisone 5 mg tablet 5 mg PO DAILY 30 Days Qty: 30 RF: 4 acarbose 25 mg tablet 25 mg PO TID 30 Days Qty: 90 RF: 5 Discharge Orders: Discharge Order (Routine); Ordered 07/19/20 Ordered By: Luisito Lewis Diet: advance to usual diet Activity on Discharge: As tolerated Stand Alone Forms: Patient Portal Discharge page Care Plan Goals: stone Health Concerns: stone Plan of Treatment: jorge Assessment: stone
--- NOTE | 2020-07-19 14:48 | MHC.CM.PN ---
Received notification from Case Management office that patient will be discharged from PACU with VNA services. Met with patient in regards to discharge planning. 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 PCP verified. Patient verbalizes understanding of need for VNA at discharge. Spoke with Adriana at [facility]. Adriana will authorize VNA through [facility]. Referral made via [employer]. Patient's car is currently in the ER parking lot. She has received anesthesia and will not be able to drive. Action chair van booked via [employer]. [facility] with chart. Continue to monitor for d/c needs.
[2020-07-23 21:56] LABS: Stone Source KIDNEY
== END 2020-07-19 19:03 | disposition home health service (06) | DRG 660 ==
LOC: HO.ED 19:32 → HO.EDOVER 20:34 → HO.S3 07-19 07:15
PROVIDERS: Urology; Admitting Provider Hospitalist; Emergency Provider Emergency Medicine; PCP Internal Medicine; Visit Provider Internal Medicine
PROC: 0T768DZ Dilation of Right Ureter with Intraluminal Device, Via Natural or Artificial Opening Endoscopic (ICD-10-PCS; principal; 2020-07-19 09:50)
DX: N13.6 Pyonephrosis (principal); E27.40 Unspecified adrenocortical insufficiency; E87.6 Hypokalemia; E11.42 Type 2 diabetes mellitus with diabetic polyneuropathy; Z98.84 Bariatric surgery status; Z20.822 Contact with and (suspected) exposure to COVID-19; Z79.899 Other long term (current) drug therapy
CPT/HCPCS: 36415; 70450; 74177; 80048; 80053; 80076; 81001; 81003; 81025; 82365; 82947; 83690; 85025; 87040; 87086; 87088; 87186; 87635; 88300; 93005; 96365; 96375; 99285; C1758; C1769; C2617; J0696; J1885; J2250; J2270; J2405; J3010; Q9967

== ENCOUNTER 2020-07-23 11:52 | Outpatient (REF) | payer OTHER, SELFPAY ==
--- NOTE | ~2020-07-23 | XR_ITS ---
EXAMINATION: XR LUMBOSACRAL SPINE CLINICAL INFORMATION: Lumbago with sciatica right side. COMPARISON: CT scan of the abdomen and pelvis dated 07/18/20. TECHNIQUE: Three views of the lumbosacral spine. FINDINGS: There are moderate changes of degenerative disc disease at L5-S1 with disc space narrowing, vacuum disc phenomenon and and marginal osteophytosis. Multilevel spondylosis of the lower thoracic spine is partially visualized. Disc spaces are otherwise well-maintained. Vertebral body heights are maintained. There is normal anatomic alignment. A right ureteral stent is present in expected position. A right MART is partially visualized. XR/XR lumbar spine 2-3V IMPRESSION: Moderate degenerative disc disease at L5-S1. Multilevel spondylosis in the lower thoracic spine and better evaluated on prior CT scan. Left ureteral stent in expected position.
== END 2020-07-23 11:53 | disposition home or self-care (01) ==
LOC: HO.XRAY 11:52
PROVIDERS: PCP Internal Medicine; Visit Provider Internal Medicine
DX: M54.41 Lumbago with sciatica, right side (principal)
CPT/HCPCS: 72100

== ENCOUNTER → 2020-07-27 10:44 | Outpatient (BNVA) | payer OTHER, SELFPAY | PROVIDERS: PCP Internal Medicine; Visit Provider Urology | DX: N20.0 Calculus of kidney (principal) | CPT/HCPCS: 52310; 99212 ==

== ENCOUNTER → 2020-07-30 09:28 | Outpatient (REF) | payer OTHER, SELFPAY ==
--- NOTE | 2020-07-30 09:30 | CA_ITS ---
Transthoracic Echocardiogram Limited Patient (Last, First, Middle): Gita Bennett, Gender: Female Date of : 1980 Age: 40 Procedure Date: 07/30/2020 Procedure Type: Transthoracic Echocardiogram Limited Location: OP Height: 160.02 cm Weight: 78.93 kg BSA: 1.82 m2 Heart Rate: bpm BP: 134 / 82 mmHg Commissions Manager: Referring MD: Donn Danielle MD Symptoms: I42.9 CARDIOMYOPATHY Study Quality: Good ECG Rhythm: Sinus Conclusions: - The left ventricular systolic function is low normal. The visually estimated ejection fraction is between 50-55%. - Normal right ventricular cavity size and systolic function. - Normal tricuspid valve structure and function. Findings Left Ventricle Normal left ventricular cavity size. There is mildly increased left ventricular wall thickness. The left ventricular systolic function is low normal. The visually estimated ejection fraction is between 50-55%. There is no evidence of regional wall motion abnormalities. Diastolic function is normal for age. Right Ventricle Normal right ventricular cavity size and systolic function. Tricuspid Valve Normal tricuspid valve structure and function. There is trace tricuspid valve regurgitation. Tricuspid regurgitation envelope is inadequate for calculation of right ventricular systolic pressure. Normal right atrial pressure. Great Vessels All visible segments of the aorta are normal in size. Venous The inferior vena cava is normal in size and collapses greater than 50% with inspiration. Pericardium/Pleural There is no evidence of pericardial effusion. Measurements 2D Linear Measurements IVSd: 1.05 0.6-0.9/0.6-1.0 cm LVIDd: 5.04 3.9-5.3/4.2-5.9 cm LVIDd Index: 2.77 2.4-3.2/2.2-3.1 cm/m2 LVIDs: 3.50 2.0-3.6 cm LVPWd: 1.05 0.7-1.1 cm LA Diam: 3.80 2.7-3.8/3.0-4.0 cm LAIDs Index: 2.09 1.5-2.3 cm/m2 LV Mass: 245.41 67-162/88-224 g LV Mass Index: 134.84 43-95/49-115 g/m2 2D Systolic Function EF 4C: 41.30 >55% EF 2C: 33.10 >55% Mitral Valve MV Pk E: 0.70 MV PK A: 0.55 MV Decel Time: 195.00 E/A: 1.30 E'Lateral: 11.80 E'Medial: 8.61 E/E' Med: 8.20 E/E' Lat: 6.00 PHT: 57.00 MVA PHT: 3.86 Decel Cole: 3.60 Diastolic Function MV Pk E: 0.70 MV Pk A: 0.55 E/A: 1.30 E'Medial: 8.61 E/E' Med: 8.20 E' Laterial: 11.80 E/E' Lat: 6.00 Tricuspid Valve TR Pk Franki: 1.91 TR Pk Grad: 15.00 Updated in Other Vendor System with Status of Final Cornell Méndez MD electronically signed on 07/31/2020 8:50:53 PM with status of Final
== END ==
LOC: HO.CARD 09:28
PROVIDERS: PCP Internal Medicine; Visit Provider Internal Medicine Cardiovascular Disease
DX: I42.9 Cardiomyopathy, unspecified (principal)
CPT/HCPCS: 93308

== ENCOUNTER 2020-08-14 05:55 | Inpatient (IN) | payer OTHER, SELFPAY ==
--- NOTE | ~2020-08-14 | CT_ITS ---
EXAMINATION: CT ABDOMEN AND PELVIS WITHOUT CONTRAST CLINICAL INFORMATION: Left lower quadrant, left upper quadrant, left flank pain. Rule out stone and diverticulitis. COMPARISON: 07/18/2020 TECHNIQUE: Multidetector volumetric imaging was performed from the superior aspect of the liver through the pubic symphysis. Sagittal and coronal reformatted images were obtained on the technologist's workstation. This CT examination was performed using dose optimization techniques as appropriate, variously including the following: *Automated exposure control *Adjustment of mA and/or kV according to patient size (this includes techniques or standardized protocols for targeted exams where dose is matched to indication/reason for exam; i.e. extremities or head) *Use of iterative reconstruction technique DLP: 836 mGy-cm FINDINGS: LUNG BASES: The visualized lung bases are unremarkable. LIVER, GALLBLADDER, AND BILIARY TREE: The liver is normal in size, shape, and attenuation. No focal hepatic lesion or biliary ductal dilatation is present. Cholecystectomy. PANCREAS: Unremarkable. SPLEEN: Unremarkable. ADRENAL GLANDS: Unremarkable. KIDNEYS AND URETERS: The kidneys are normal in size, shape, and attenuation. No hydronephrosis or hydroureter. There are multiple bilateral renal calculi present. On the left there are at least 2 calculi, with a midpole 0.3 cm calculus is 10.5 cm from the posterior axillary line. On the right there are also at least 2 calculi. The lower pole calculus measures 0.5 cm, 11.5 cm from the posterior axillary line. BLADDER: Unremarkable. GASTROINTESTINAL TRACT: Postsurgical changes of the stomach with the appearance of a bypass. The small bowel in the left mid to lower quadrant is distended with fecalization. This measures up to 4.2 cm. This transitions promptly to decompressed small bowel extending to an anastomosis in the right lower quadrant. The small bowel proximal to the area of fecalization is fluid-filled with air-fluid levels. Gas and stool are seen throughout the colon. ABDOMINAL WALL: No significant hernia is appreciated. LYMPH NODES: Normal. VASCULAR: Unremarkable. PELVIC VISCERA: Unremarkable. OSSEOUS STRUCTURES: No acute or suspicious osseous abnormality. Mild degenerative changes of the spine. CT/CT abdomen pelvis wo con IMPRESSION: Dilated small bowel in the left mid to lower abdomen leading to an area of fecalization. There is abrupt transition to decompressed small bowel proximal to the anastomosis. This has the appearance of a partially obstructive process. Of note, the anastomotic site has moved since the previous study, from the left lower quadrant to the right lower quadrant. This change of positioning raises concern for the possibility of an internal hernia. Multiple nonobstructing bilateral renal calculi. This critical result was discussed with Renny Medeiros MD by telephone at 08/14/2020 6:58 AM and it was ascertained that the content and urgency of the report was understood at the time of direct communication.
--- NOTE | ~2020-08-14 | CT_ITS ---
EXAMINATION: CT ABDOMEN AND PELVIS WITH CONTRAST CLINICAL INFORMATION: Partial small bowel obstruction, not improving COMPARISON: 08/14/2020 TECHNIQUE: Multidetector volumetric images were obtained from the superior aspect of the liver through the pubic symphysis following administration 85 mL of Omnipaque 350 intravenous contrast. Sagittal and coronal reformatted images were obtained on the technologist's workstation. Oral contrast: Yes This CT examination was performed using dose optimization techniques as appropriate, variously including the following: *Automated exposure control *Adjustment of mA and/or kV according to patient size (this includes techniques or standardized protocols for targeted exams where dose is matched to indication/reason for exam; i.e. extremities or head) *Use of iterative reconstruction technique DLP: 692 mGy-cm FINDINGS: LUNG BASES: The visualized lung bases are unremarkable. LIVER, GALLBLADDER, AND BILIARY TREE: The liver is normal in size, shape, and attenuation. No focal hepatic lesion or biliary ductal dilatation is present. Cholecystectomy. PANCREAS: Unremarkable. SPLEEN: Unremarkable. ADRENAL GLANDS: Unremarkable. KIDNEYS AND URETERS: The kidneys are normal in size, shape, and attenuation. No hydronephrosis, hydroureter. No perinephric stranding. Few scattered nonobstructing renal calculi bilaterally measuring 0.6 cm in the lower pole on the right and up to 0.5 cm in the lower pole on the left. BLADDER: Portions are not well seen due to streak artifact from hip arthroplasty. Of the visualized portions, there are no focal bladder wall abnormalities. GASTROINTESTINAL TRACT: Moderately large fecal burden throughout the colon the patient is status post gastric bypass. Contrast material is seen within the small bowel just distal to the gastrojejunostomy. The previously seen dilated loops of small bowel particularly in the left hemiabdomen are less distended. The transition point is in a similar location, however the transition is less sharp on the current study. ABDOMINAL WALL: No significant abdominal wall hernia. LYMPH NODES: No lymphadenopathy within the abdomen or pelvis by CT criteria. VASCULAR: No abdominal aortic aneurysm. The IVC is singular and right-sided. PELVIC VISCERA: Hysterectomy. OSSEOUS STRUCTURES: No acute or suspicious osseous abnormality. Right hip arthroplasty. CT/CT abdomen pelvis w con IMPRESSION: 1. Decreasing small bowel obstruction with similar-appearing transition point near the anastomosis in the right lower quadrant. 2. Other chronic and nonacute findings as above.
[2020-08-14 06:12] VITALS: BP 110/81; PULSE 86; RESP 24; TEMP 36.3; O2SAT 99; BMI 32.0
--- NOTE | 2020-08-14 06:47 | ED_ITS ---
HPI - Abdominal Pain General Chief Complaint: Abdominal Pain Stated Complaint: abd pain Time Seen by Provider: 08/14/20 06:32 Source: patient Mode of arrival: ambulatory Limitations: no limitations History of Present Illness HPI narrative: 40-year-old female who presents emergency department for evaluation of abdominal pain. The pain started yesterday at 5:00 p.m.. She states that the pain is located on the left side of her abdomen and left flank. She points to her left upper quadrant, left lower quadrant and left flank area when asked to localize the pain. The pain came on gradually but then became severe. The pain is now constant, sharp pain which is 10/10. Patient had associated nausea and has vomited 4 times. She denied fever, chills, chest pain, shortness of breath, cough, frequency, urgency, dysuria or change in bowel movements. She states she had similar pain 1 month prior when she was diagnosed with a kidney stone. I reviewed the urology notes and the CT scan from 07/18/2020 . The patient had a right distal ureter 5 mm calculus with right-sided hydronephrosis, she had nonobstructing bilateral intrarenal calculi as well. The patient required right sided laser lithotripsy with stone retrieval and placement of a ureteral stent by Dr. Lewis. Patient received her 2nd COVID-19 vaccination August 05, 2020, she has had no COVID like symptoms. Related Data Home Medications Medication Instructions Recorded Confirmed bupropion HCl 100 mg tablet 100 mg PO .once a day tab 01/13/20 07/18/20 cyclobenzaprine 5 mg tablet 5 mg PO TID PRN 01/13/20 07/18/20 metoprolol tartrate 25 mg tablet 25 mg PO BID 01/13/20 07/18/20 oxycodone 5 mg tablet 5 mg PO Q4H PRN 01/13/20 07/18/20 pantoprazole 40 mg tablet,delayed 40 mg PO DAILY 01/13/20 07/18/20 release sertraline 100 mg tablet 100 mg PO DAILY 01/13/20 07/18/20 spironolactone 25 mg tablet 25 mg PO DAILY 01/13/20 07/18/20 vitamin B complex 1 tab PO DAILY 01/13/20 07/18/20 zolpidem 10 mg tablet 10 mg PO BEDTIME PRN 04/02/20 07/18/20 blood sugar diagnostic #10 ea 06/04/20 07/18/20 cholecalciferol (vitamin D3) 50 50 mcg PO DAILY 06/04/20 07/18/20 mcg (2,000 unit) capsule furosemide 40 mg tablet 120 mg PO Q OTHER DAY PRN 06/04/20 07/18/20 lancets 33 gauge #100 ea 06/04/20 07/18/20 sacubitril 24 mg-valsartan 26 mg 1 tab PO BID 06/04/20 07/18/20 tablet alcohol swabs 0 pad TOPICAL 07/27/20 diclofenac sodium 1 % topical gel 1 ea TOPICAL QID 07/27/20 gabapentin 100 mg capsule 0 mg PO 07/27/20 Previous Rx's Medication Instructions Recorded sulfasalazine 500 mg tablet 1,000 mg PO BID #120 tab 03/31/20 hydroxychloroquine 200 mg tablet 200 mg PO BID #180 tab 04/08/20 folic acid 1 mg tablet 1 mg PO QAM #30 tab 04/27/20 albuterol sulfate 2 puff INHALATION Q4-6H PRN #6.7 g 05/07/20 acarbose 25 mg tablet 25 mg PO TID 30 Days #90 tab 06/04/20 hydrocortisone 10 mg tablet 10 mg PO DAILY 30 Days #30 tab 06/04/20 hydrocortisone 5 mg tablet 5 mg PO DAILY 30 Days #30 tab 06/04/20 sarilumab 200 mg/1.14 mL 200 mg SUBCUT Q2W #2.28 ml 06/15/20 subcutaneous pen injector TRUEplus Lancets 33 gauge #100 ea NS 06/23/20 blood sugar diagnostic #100 ea 06/23/20 phenazopyridine 100 mg tablet 100 mg PO TID PRN 4 Days #12 tab 07/19/20 sulfamethoxazole 800 1 tab PO BID 3 Days #6 tab 07/19/20 mg-trimethoprim 160 mg tablet tamsulosin 0.4 mg capsule 0.4 mg PO BEDTIME 14 Days #14 cap 07/19/20 tramadol 50 mg tablet 50 mg PO Q6H PRN #14 tab 07/19/20 gabapentin 600 mg tablet 600 mg PO BEDTIME #30 tab 08/11/20 Allergies Allergy/AdvReac Type Severity Reaction Status Date / Time pt states no food/medication Allergy Unknown na Uncoded 01/16/20 10:56 a Review of Systems Review of Systems Yes all other systems are reviewed and are negative Physical Exam Vital Signs: Vital Signs: Last Vital Signs Temp 97.3 F 08/14/20 06:12 Pulse 86 08/14/20 06:12 Resp 24 H 08/14/20 06:12 BP 110/81 08/14/20 06:12 Pulse Ox 99 08/14/20 06:12 Body Mass Index 32.0 Const: General: cooperative, healthy appearing and in distress moderate (Secondary to abdominal pain) Orientation/consciousness: oriented to person and oriented to place Limitations: no limitations HENMT: Head: Yes normal to inspection, Yes normocephalic and Yes atraumatic Ears: external ears normal General nose exam: Normal external nose present Face and sinus: Yes normal facial exam Mouth: Normal oral and palatal mucosa present Throat: Yes posterior oropharynx normal Eyes: Periorbital: periorbital findings normal Eyelids: Yes eyelids normal Conjunctivae: conjunctivae normal Sclerae: sclerae normal Corneas: corneas normal Pupils: Equal, round and reactive pupils present Direct Ophthalmoscopy: normal light reflex Neck: Neck: Yes full ROM, Yes no lymphadenopathy, Yes no meningeal signs, Yes trachea midline and Yes supple Chest: Chest palpation & inspection: normal inspection of the chest and normal palpation of entire chest wall Resp: Effort & Inspection: normal respiratory effort and able to speak in c omplete sentences Auscultation: clear to auscultation bilaterally Cardio: Rate: regular rate Rhythm: regular rhythm Heart sounds: S1 normal heart sound present, S2 normal heart sound present and no murmurs GI: Inspection: Yes normal to inspection Palpation (GI): Soft to palpation, nontender, no guarding, not rigid and No hepatosplenomegaly present Auscultation: normal bowel sounds : General: Yes no CVA tenderness Back/Spine/Pelvis: Back: no CVA tenderness Cervical Spine: normal cervical lordosis Thoracic/Lumbar Spine: thoracic and lumbar spine normal to inspection Skin: Lesions: no lesions Rashes: no rashes Wounds: no wounds Neuro: General: oriented to person, oriented to place and no meningeal signs Cranial nerves: Yes CN's II-XII intact bilaterally and Yes Equal, round and reactive pupils present Cognition (Neuro): normal cognition Motor exam (neuro): 5/5 motor strength present throughout Extrem: General: Yes normal to inspection and Yes full ROM Psych: Appearance: well kempt Mental Status: mental status grossly normal Speech and movement: Normal speech and movement present Affect: normal affect Attitude: cooperative Thought process: Normal thought process present Thought content: Normal thought content present Course Course Course Narrative: 40-year-old female who presents emergency department for evaluation of left-sided abdominal and left-sided flank pain which began yesterday at 5:00 p.m., associated with nausea and vomiting. Physical examination revealed that the patient was in distress secondary to her pain, she had moderate left-sided abdominal tenderness and moderate left flank CVA tenderness. I did order laboratory evaluation and a CT scan of the abdomen pelvis without IV contrast. Patient's pain was treated with Toradol 30 mg IV, her nausea was treated with Zofran 4 mg IV. She was also ordered to get normal saline x1 L. the patient does have adrenal insufficiency and does take hydrocortisone daily therefore she was ordered to get stress dose steroids of hydrocortisone 100 mg IV. 0709: CT scan of the abdomen pelvis without IV contrast, verbal report from radiologist is consistent with a small-bowel obstruction located in the left lower quadrant with air-fluid levels. The radiologist stated that the obstruction is in the area of the anastomosis from the Ofelia-en-Y surgery. Of note, the anastomosis site has moved since the previous study from the left lower quadrant to the right lower quadrant, this change of position raises concern for possible internal hernia. I will discuss this finding with the patient's bariatric surgeons. 0730: I did discuss the patient's presentation with the provider covering the bariatric service, Antonieta Walker. She will discuss the patient's presentation with the on-call bariatric surgeon and the patient will be admitted to the surgical service. I added a PT/INR, PTT, EKG, lactate, and type and screen to the patient's blood work. The patient was given a dose of morphine 4 mg IV since she had no relief of the pain with the IV Toradol. 0826: EKG done preoperatively did reveal a prolonged QTC interval of 485 milliseconds otherwise the EKG was unremarkable. MDM - Abdominal Pain Lab Data Result diagrams: 08/14/20 07:01 08/14/20 07:01 Labs: Lab Results 08/14/20 08/14/20 Range/Units 07:01 08:01 WBC 5.3 (4.8-10.8) X10*3/uL RBC 4.42 (4.20-5.50) X10*6/uL Hgb 11.4 L (12.0-16.0) g/dl Hct 36.4 L (37-47) % MCV 82.4 (80-98) fL MCH 25.8 L (27.0-33.0) pg MCHC 31.3 (31.0-35.0) g/dl RDW 19.5 H (11.0-16.0) % Plt Count 223 (160-400) X10*3/uL MPV 9.4 (9.4-12.3) fL Immature Gran % (Auto) 0.4 (0.0-0.4) % Neut % (Auto) 47.7 (45-73) % Lymph % (Auto) 30.4 (20-40) % [place] % (Auto) 17.5 H (2-11) % Eos % (Auto) 3.4 (0-4) % Baso % (Auto) 0.6 (0-2) % Lymph # (Auto) 1.6 (1.2-4.9) X10*3/uL [place] # (Auto) 0.9 (0.1-1.2) X10*3/uL Eos # (Auto) 0.2 (0.0-0.4) X10*3/uL Baso # (Auto) 0.0 (0.0-0.2) X10*3/uL Abs Immat Gran (auto) 0.02 (0.00-0.03) X10*3/uL Absolute Neuts (auto) 2.5 (2.0-8.3) X10*3/uL Absolute Nucleated RBC 0.000 (0.0-0.012) X10*3/uL Nucleated RBC % (auto) 0.0 (0.0-0.2) /100WBC COVID-19 (JOSEE) Negative (Negative) COVID-19 Clin Com See Note Imaging Data CT scan abdomen pelvis without IV contrast: Radiologist's impression: [address] [id number] Scan ReportSigned Patient: Gita BennettMR#: [id number]: [id number]:[id number]/Sex: 40 / FADM Date: 08/14/20Loc: HO.EDAttending Dr: Ordering Physician: Renny Medeiros MD Date of Service: 08/14/20 Procedure(s): CT abdomen pelvis wo con Accession Number(s): [id number] cc: Renny Medeiros MD~ EXAMINATION: CT ABDOMEN AND PELVIS WITHOUT CONTRAST CLINICAL INFORMATION: Left lower quadrant, left upper quadrant, left flank pain. Rule out stone and diverticulitis. COMPARISON: 07/18/2020 TECHNIQUE: Multidetector volumetric imaging was performed from the superior aspect of the liver through the pubic symphysis. Sagittal and coronal reformatted images were obtained on the technologist's workstation. This CT examination was performed using dose optimization techniques as appropriate, variously including the following: *Automated exposure control *Adjustment of mA and/or kV according to patient size (this includes techniques or standardized protocols for targeted exams where dose is matched to indication/reason for exam; i.e. extremities or head) *Use of iterative reconstruction technique DLP: 836 mGy-cm FINDINGS: LUNG BASES: The visualized lung bases are unremarkable. LIVER, GALLBLADDER, AND BILIARY TREE: The liver is normal in size, shape, and attenuation. No focal hepatic lesion or biliary ductal dilatation is present. Cholecystectomy. PANCREAS: Unremarkable. SPLEEN: Unremarkable. ADRENAL GLANDS: Unremarkable. KIDNEYS AND URETERS: The kidneys are normal in size, shape, and attenuation. No hydronephrosis or hydroureter. There are multiple bilateral renal calculi present. On the left there are at least 2 calculi, with a midpole 0.3 cm calculus is 10.5 cm from the posterior axillary line. On the right there are also at least 2 calculi. The lower pole calculus measures 0.5 cm, 11.5 cm from the posterior axillary line. BLADDER: Unremarkable. GASTROINTESTINAL TRACT: Postsurgical changes of the stomach with the appearance of a bypass. The small bowel in the left mid to lower quadrant is distended with fecalization. This measures up to 4.2 cm. This transitions promptly to decompressed small bowel extending to an anastomosis in the right lower quadrant. The small bowel proximal to the area of fecalization is fluid-filled with air-fluid levels. Gas and stool are seen throughout the colon. ABDOMINAL WALL: No significant hernia is appreciated. LYMPH NODES: Normal. VASCULAR: Unremarkable. PELVIC VISCERA: Unremarkable. OSSEOUS STRUCTURES: No acute or suspicious osseous abnormality. Mild degenerative changes of the spine. CT/CT abdomen pelvis wo con IMPRESSION: Dilated small bowel in the left mid to lower abdomen leading to an area of fecalization. There is abrupt transition to decompressed small bowel proximal to the anastomosis. This has the appearance of a partially obstructive process. Of note, the anastomotic site has moved since the previous study, from the left lower quadrant to the right lower quadrant. This change of positioning raises concern for the possibility of an internal hernia. Multiple nonobstructing bilateral renal calculi. This critical result was discussed with Renny Medeiros MD by telephone at 08/14/2020 6:58 AM and it was ascertained that the content and urgency of the report was understood at the time of direct communication. Dictated By:Vipul Cuba MDSigned By:<Electronically signed by Vipul Cuba MD in OV>08/14/20 0702 DD/ 0639TD/TT: [employer]: ROBERT ECG Data Interpretation: 0826: Normal sinus rhythm rate of 78, normal VA, QRS duration. QTC is elevated at 485 milliseconds. Inverted T-wave in V1. No ST segment elevation, no ST segment depression. No old EKG for comparison. This is an abnormal EKG secondary to the prolonged QTC interval. Discharge Plan Discharge Clinical Impression: Partial bowel obstruction Qualifiers: Intestinal obstruction type: other intestinal obstruction Qualified Code(s): K56.690 - Other partial intestinal obstruction Patient Disposition: Admitted As Inpatient [facility] Past Medical History Medical History Diabetic neuropathy History of diabetes mellitus resolved following bariatric surgery Hypoglycemia after GI (gastrointestinal) surgery Intestinal malabsorption Localized osteoarthritis of knees, bilateral Obesity Secondary adrenal insufficiency Seropositive rheumatoid arthritis Surgical History H/O removal of cyst History of esophagogastroduodenoscopy (EGD) History of hip replacement History of kidney surgery History of Ofelia-en-Y gastric bypass Hx laparoscopic cholecystectomy Hx of hernia repair S/P NITHYA (total abdominal hysterectomy) Family History Family History Father Epilepsia Depression Anxiety Colon cancer Mother HTN (hypertension) DM (diabetes mellitus) Heart disease RA (rheumatoid arthritis) Sister No problems noted. Sister No problems noted. Social History Social History Alcohol intake: never Advance Directives: No Advance Directives Information Provided: No Patient : No
[2020-08-14 07:05] LABS: MANUAL DIFF FLAG NO
[2020-08-14 07:09] LABS: Basophils Percent Auto 0.6 % (0-2); Eosinophils Absolute Auto 0.2 X10*3/uL (0.0-0.4); Eosinophils Percent Auto 3.4 % (0-4); Hematocrit 36.4 % (37-47); Hemoglobin 11.4 g/dl (12.0-16.0); Imm Gran Abs Auto 0.02 X10*3/uL (0.00-0.03); Imm Gran Pct Auto 0.4 % (0.0-0.4); Lymphocytes Absolute Auto 1.6 X10*3/uL (1.2-4.9); Lymphocytes Percent Auto 30.4 % (20-40); Mean Corpuscular HGB Conc 31.3 g/dl (31.0-35.0); Mean Corpuscular Hemoglobin 25.8 pg (27.0-33.0); Mean Corpuscular Volume 82.4 fL (80-98); Mean Platelet Volume 9.4 fL (9.4-12.3); Monocytes Absolute Auto 0.9 X10*3/uL (0.1-1.2); Monocytes Percent Auto 17.5 % (2-11); Neutrophils Absolute Auto 2.5 X10*3/uL (2.0-8.3); Neutrophils Percent Auto 47.7 % (45-73); Platelet Count 223 X10*3/uL (160-400); Red Blood Count 4.42 X10*6/uL (4.20-5.50); Red Cell Distribution Width 19.5 % (11.0-16.0); White Blood Count 5.3 X10*3/uL (4.8-10.8)
[2020-08-14] MEDS: Ketorolac Tromethamine 30 MG/ML VIAL IVPUSH (07:09)
[2020-08-14] MEDS: ondansetron HCL 4 MG/2 ML VIAL IVPUSH ×2 (07:09→15:10)
[2020-08-14] MEDS: 0.9 % Sodium Chloride 1,000 ML 999 ML IV (07:09)
--- NOTE | 2020-08-14 07:34 | ECG_ITS ---
Test Reason : OR Blood Pressure : / mmHG Vent. Rate : 078 BPM Atrial Rate : 078 BPM P-R Int : 158 ms QRS Dur : 090 ms QT Int : 426 ms P-R-T Axes : 025 026 046 degrees QTc Int : 485 ms Normal sinus rhythm Prolonged QT Abnormal ECG When compared with ECG of 18-JUL-2020 16:50, No significant change was found Referred By: Renny Medeiros Electronically Signed By:WENDY GONZALEZ
[2020-08-14] MEDS: Morphine Sulfate 4 MG/ML CARTRIDGE IVPUSH (07:45)
[2020-08-14 08:17] LABS: Prothrombin Time 12.3 SEC (10.8-13.0)
[2020-08-14 08:20] LABS: Partial Thromboplastin Time 37.4 SEC (24.1-38.0)
[2020-08-14 08:26] LABS: COVID-19 Test Negative (Negative); IDNOW Serial# 9DD0AD1C
[2020-08-14 08:32] LABS: Lactic Acid 1.4 mmol/L (0.5-2.0)
[2020-08-14 08:37] LABS: Alanine Aminotransferase 23 U/L (0-31); Albumin Level 3.7 g/dL (3.5-5.0); Alkaline Phosphatase 92 U/L (39-117); Anion Gap 12 (12-20); Aspartate Amino Transferase 19 U/L (5-31); Bilirubin Total 0.4 mg/dL (0.0-1.0); Blood Urea Nitrogen 7 mg/dL (9-16); Calcium 8.8 mg/dL (8.4-10.2); Carbon Dioxide 26 mmol/L (22-29); Chloride 106 mmol/L (96-108); Creatinine Clr Calc Pharmacy 124.9; Estimated Glomerular Filt Rate > 60; Glucose Random 98 mg/dL (60-115); Lipase 24 U/L (8-78); Potassium 3.5 mmol/L (3.3-5.1); Sodium 140 mmol/L (135-145); Total Protein 6.6 g/dL (6.5-8.0)
[2020-08-14 08:51] VITALS: BP 114/55; PULSE 83; RESP 16; O2SAT 97
[2020-08-14] MEDS: Metoprolol Tartrate 5 MG in 0.9 % Sodium Chloride 50 ML 220 MG IV (11:21)
[2020-08-14 11:31] LABS: Glucose Urine UA NEG (NEG); Leukocyte Esterase Urine 2+ (NEG); Nitrite Urine POS (NEG); UACC Culture Trigger YES; Urine Blood NEG (NEG); Urine Ketones NEG (NEG); Urine Protein NEG (NEG-TRACE)
[2020-08-14 11:32] LABS: Appearance Urine HAZY; Color Urine YELLOW
[2020-08-14 11:41] LABS: Bacteria Urine 1+ /LPF; Squamous Epithelial Cell Urine TRACE /LPF; WBC Urine 30-49 /HPF (0-4)
--- NOTE | 2020-08-14 11:56 | P.HPGS_ITS ---
History of Present Illness History of Present Illness Date of Service: 08/14/20 Chief complaint: abd pain Narrative: Gita Navarro is a 40 year old female who had gastric bypass surgery with Dr Ahumada about 2 years ago at [facility]. She was in her normal state of health until last night around 7pm when she developed acute onset of severe mid/right sided abd pain which radiating circumferentially around her abdomen. Her pain began while at [employer] about an hour after eating yogurt. She states nausea and 4 bouts of emesis began after the pain started. She then came to [facility] ED. She states that she is passing small amounts of flatus, last BM 2 days ago and it is normal for her to have BM's every 2-3 days and that they are hard to pass. She states she did not eat anything unusual in the days preceding this pain and that she initially thought it was a recurrence of renal stones for which she had a stent placed and removed in ED for retrieval of stones in ED earlier this month. She was last seen in Weight Management office December 2019 at approximately the same weight. Review of Systems Review of Systems: Yes all other systems are reviewed and are negative Cardiovascular: Cardiovascular: Reports no additional cardiovascular complaints Respiratory: Respiratory: Reports no additional respiratory complaints Gastrointestinal: Gastrointestinal: Reports no additional gastrointestinal complaints [facility] Past Medical History Medical History Diabetic neuropathy History of diabetes mellitus resolved following bariatric surgery Hypoglycemia after GI (gastrointestinal) surgery Intestinal malabsorption Localized osteoarthritis of knees, bilateral Obesity Secondary adrenal insufficiency Seropositive rheumatoid arthritis Family History Family History Father Epilepsia Depression Anxiety Colon cancer Mother HTN (hypertension) DM (diabetes mellitus) Heart disease RA (rheumatoid arthritis) Sister No problems noted. Sister No problems noted. Surgical History Surgical History (Updated 08/14/20 @ 12:10 by Antonieta Walker PA-C) H/O removal of cyst History of esophagogastroduodenoscopy (EGD) History of hip replacement History of kidney surgery History of Ofelia-en-Y gastric bypass Hx laparoscopic cholecystectomy Hx of hernia repair S/P NITHYA (total abdominal hysterectomy) Social History Social History Alcohol intake: never Advance Directives: No Advance Directives Information Provided: No Patient : No Meds Allergies Allergy/AdvReac Type Severity Reaction Status Date / Time pt states no food/medication Allergy Unknown na Uncoded 01/16/20 10:56 a Active Medications: Current Medications Generic Name Dose Route Start Last Admin Trade Name Freq PRN Reason Stop Dose Admin Famotidine 20 mg 08/14/20 11:55 Famotidine/Pf 20 Mg/2 Ml Vial IVPUSH BID CODI Hydrocortisone 10 mg 08/15/20 09:00 Hydrocortisone 10 Mg Tablet PO DAILY CODI Metoprolol Tartrate 5 mg/ 55 mls @ 220 mls/hr 08/14/20 10:45 08/14/20 11:21 Sodium Chloride IV 220 mls/hr Q6H CODI Administration Lactated Ringer's 1,000 mls @ 125 mls/hr 08/14/20 11:55 Lr IVCONT .Q8H CODI Morphine Sulfate 2 mg 08/14/20 11:55 Morphine Sulfate 2 Mg/Ml Cartridge IVPUSH Q6H PRN Pain, Severe (Pain Scale 7-10) Ondansetron HCl 4 mg 08/14/20 11:55 Ondansetron Hcl 4 Mg/2 Ml Vial IVPUSH Q8H PRN Nausea Sodium Chloride 3 ml 08/14/20 16:00 0.9 % Sodium Chloride Flush 3 Ml Syringe IVFLUSH QSHIFT [facility] Home Medications Medication Instructions Recorded Confirmed Last Taken Type bupropion HCl 100 mg tablet 100 mg PO .once a day tab 01/13/20 08/14/20 Unknown History cyclobenzaprine 5 mg tablet 5 mg PO TID PRN 01/13/20 07/18/20 Unknown History metoprolol tartrate 25 mg tablet 25 mg PO BID 01/13/20 08/14/20 Unknown History oxycodone 5 mg tablet 5 mg PO Q4H PRN 01/13/20 08/14/20 Unknown History pantoprazole 40 mg tablet,delayed 40 mg PO DAILY 01/13/20 07/18/20 Unknown History release sertraline 100 mg tablet 100 mg PO DAILY 01/13/20 08/14/20 Unknown History spironolactone 25 mg tablet 25 mg PO DAILY 01/13/20 08/14/20 Unknown History vitamin B complex 1 tab PO DAILY 01/13/20 07/18/20 Unknown History zolpidem 10 mg tablet 10 mg PO BEDTIME PRN 04/02/20 08/14/20 Unknown History blood sugar diagnostic #10 ea 06/04/20 07/18/20 Unknown History cholecalciferol (vitamin D3) 50 50 mcg PO DAILY 06/04/20 08/14/20 Unknown History mcg (2,000 unit) capsule furosemide 40 mg tablet 120 mg PO Q OTHER DAY PRN 06/04/20 08/14/20 Unknown History lancets 33 gauge #100 ea 06/04/20 07/18/20 Unknown History sacubitril 24 mg-valsartan 26 mg 1 tab PO BID 06/04/20 07/18/20 Unknown History tablet alcohol swabs 0 pad TOPICAL 07/27/20 Unknown History diclofenac sodium 1 % topical gel 1 ea TOPICAL QID 07/27/20 Unknown History gabapentin 100 mg capsule 0 mg PO 07/27/20 Unknown History Physical Exam Vital Signs: Vital Signs: Last Vital Signs Temp 97.3 F 08/14/20 06:12 Pulse 83 08/14/20 08:51 Resp 16 08/14/20 08:51 BP 114/55 L 08/14/20 08:51 Pulse Ox 97 08/14/20 08:51 Body Mass Index 32.0 Const: General: cooperative, healthy appearing, comfortable, no acute distress, alert, awake and well groomed Nutritional Appearance: obese Orientation/consciousness: patient oriented x3 GI: Inspection: Yes obesity, Yes scar (laparoscopic scars wwell healed) and No other (flat, without distention) Palpation (GI): Soft to palpation, Tenderness to palpation present (GI) (minimally tender mid abdomen), no guarding, not rigid, no hernias, no masses and No Rebound tenderness present Neuro: General: patient oriented x3 Extrem: General: Yes normal to inspection, Yes no pedal edema and Yes no calf tenderness Results Results Labs: Short CBC 08/14/20 Range/Units 07:01 WBC 5.3 (4.8-10.8) X10*3/uL Hgb 11.4 L (12.0-16.0) g/dl Hct 36.4 L (37-47) % Plt Count 223 (160-400) X10*3/uL BMP 08/14/20 08:01 Sodium 140 Potassium 3.5 Chloride 106 Carbon Dioxide 26 BUN 7 L Creatinine 0.59 Calcium 8.8 D Liver Function 08/14/20 Range/Units 08:01 Total Bilirubin 0.4 (0.0-1.0) mg/dL AST 19 (5-31) U/L ALT 23 (0-31) U/L Alkaline Phosphatase 92 (39-117) U/L Albumin 3.7 (3.5-5.0) g/dL Urine 08/14/20 Range/Units 11:24 Urine Color YELLOW Urine Appearance HAZY Urine pH 6.0 (5.0-8.0) Ur Specific [place] 1.020 (1.005-1.025) Urine Protein NEG (NEG-TRACE) MG/DL Urine Glucose (UA) NEG (NEG) MG/DL Assessment and Plan (1) Partial bowel obstruction: Qualifiers: Intestinal obstruction type: other intestinal obstruction Qualified Code(s): K56.690 - Other partial intestinal obstruction Status: Acute (2) History of Ofelia-en-Y gastric bypass: Status: Chronic (3) Obesity: Status: Acute (4) Seropositive rheumatoid arthritis: Status: Acute (5) Diabetic neuropathy: Status: Acute (6) Secondary adrenal insufficiency: Status: Acute 40 yo female s/p RNYGBP 2019 is admitted from the ED due to parital SBO proximal to J-J anastamosis seen on CT abdomen. There is a question of internal hernia due to change in position of anastamosis from CT abd done earlier in July, now seen RLQ. Emesis and severe pain have resolved, VSS, labs within normal limits including lactic acid of 1.4. Of note is fecalization of bowel contents in small and large intestines. Due to her adrenal insufficiency patient received stress dose of solucortef in ED, also recieved one dose of toradol for pain upon admission to ED last night. Case discussed with Dr Gaviria, attending bariatric surgeon and patient will be admitted to our service, kept NPO, IVF and monitored with the likely progression of spontaneous resolution of partial SBO. Plan discussed with the patient and she is in agreement. Procedures Date of Service Date of Service: 08/14/20
[2020-08-14 12:28] VITALS: BP 92/50; PULSE 72; RESP 18; O2SAT 97
[2020-08-14] MEDS: Famotidine/PF 20 MG/2 ML VIAL IVPUSH ×2 (12:30→21:04)
[2020-08-14] MEDS: Morphine Sulfate 2 MG/ML CARTRIDGE IVPUSH ×4 (12:30→23:22)
[2020-08-14] MEDS: Lactated Ringers 1,000 ML 125 ML IVCONT ×2 (12:30→19:38)
[2020-08-14 15:14] LABS: Glucose, Whole Blood 87 mg/dL (60-115)
[2020-08-14 15:27] VITALS: BP 108/63; PULSE 90; RESP 15; TEMP 36.3; O2SAT 98
[2020-08-14] MEDS: 0.9 % Sodium Chloride Flush 3 ML SYRINGE IVFLUSH (16:04)
[2020-08-14 19:36] VITALS: BP 102/60; PULSE 70; RESP 14; TEMP 36.2; O2SAT 98
[2020-08-14 23:28] VITALS: BP 103/68; PULSE 81; RESP 20; TEMP 36.7; O2SAT 97
[2020-08-15] VITALS (7 sets, daily range): BP systolic 98–137; BP diastolic 53–79; PULSE 66–81; RESP 16–20; TEMP 36–36.3; O2SAT 96–100
[2020-08-15] MEDS: Morphine Sulfate 2 MG/ML CARTRIDGE IVPUSH ×3 (02:44→13:34)
[2020-08-15] MEDS: Lactated Ringers 1,000 ML 125 ML IVCONT ×2 (02:44→10:33)
[2020-08-15 07:12] LABS: Alanine Aminotransferase 21 U/L (0-31); Albumin Level 3.2 g/dL (3.5-5.0); Alkaline Phosphatase 78 U/L (39-117); Anion Gap 9 (12-20); Aspartate Amino Transferase 18 U/L (5-31); Bilirubin Total 0.4 mg/dL (0.0-1.0); Blood Urea Nitrogen 6 mg/dL (9-16); Calcium 8.6 mg/dL (8.4-10.2); Carbon Dioxide 28 mmol/L (22-29); Chloride 110 mmol/L (96-108); Creatinine Clr Calc Pharmacy 129.3; Estimated Glomerular Filt Rate > 60; Glucose Random 79 mg/dL (60-115); Magnesium 2.1 mg/dL (1.6-2.6); Potassium 3.8 mmol/L (3.3-5.1); Sodium 143 mmol/L (135-145); Total Protein 5.6 g/dL (6.5-8.0)
[2020-08-15] MEDS: Famotidine/PF 20 MG/2 ML VIAL IVPUSH ×2 (07:49→20:15)
--- NOTE | 2020-08-15 10:15 | PM.PNGS ---
Subjective Subjective Date of Service: 08/15/20 Interval history: Pt states no change in status from yesterday. Some nausea alleviated with IV ondansteron, no emesis since admission. She denies flatus, BM's, not ambulating. Receiving morphine 3 mg every 3-4 hours for abd pain. she states pain quality and intensity has not changes. Physical Exam Vital Signs: Vital Signs: Last Vital Signs Temp 97.1 F 08/15/20 08:00 Pulse 81 08/15/20 08:00 Resp 18 08/15/20 08:00 BP 137/69 08/15/20 08:00 Pulse Ox 97 08/15/20 08:00 Body Mass Index 32.0 Const: Other: Patient sitting up in bed, smiling, appears comfortable. General: alert and awake; No acute distress Nutritional Appearance: obese GI: Inspection: No distended Palpation (GI): Soft to palpation, not firm, Tenderness to palpation present (GI) (mild to moderate tenderness left of midline, and lower abd. More today ) with no rebound tenderness, no guarding, not rigid, no hernias and no masses Extrem: General: Yes normal to inspection, Yes no pedal edema and Yes no calf tenderness Progress Note: A&P Assessment and plan (1) Partial bowel obstruction: Status: Acute (2) History of Ofelia-en-Y gastric bypass: Status: Chronic (3) Obesity: Status: Acute (4) Seropositive rheumatoid arthritis: Status: Acute (5) Secondary adrenal insufficiency: Status: Acute Assessment and Plan: HD #1 for this 40 yo woman s/p RNYGBP, RA and secondary adrenal insufficiency who presented to the ED with partial SBO on abd CT. Pt has been npo since admission and symptoms have not improved. Blood pressures remain on the low side without any antihypertensive emds. After discussion with Dr Gaviria plan is to draw CBC and CRP this am and repeat abd CT with po and IV contrast to assess area of partial obstruction and for evidence of internal hernia. Patient is not ambulating and does not have compression stockings on. I spoke to her RN who will have patient ambulate and place compression stockings on. Patient is aware and agrees with treatment plan. Fall Risk Details Current Medications: Current Medications Generic Name Dose Route Start Last Admin Trade Name Freq PRN Reason Stop Dose Admin Famotidine 20 mg 08/14/20 11:55 08/15/20 07:49 Famotidine/Pf 20 Mg/2 Ml Vial IVPUSH 20 mg BID CODI Administration Hydrocortisone 10 mg 08/15/20 09:00 Hydrocortisone 10 Mg Tablet PO DAILY CODI Metoprolol Tartrate 5 mg/ 55 mls @ 220 mls/hr 08/14/20 10:45 08/15/20 04:03 Sodium Chloride IV Not Given Q6H CODI Lactated Ringer's 1,000 mls @ 125 mls/hr 08/14/20 11:55 08/15/20 02:44 Lr IVCONT 125 mls/hr .Q8H CODI Administration Morphine Sulfate 2 mg 08/14/20 15:48 08/15/20 07:59 Morphine Sulfate 2 Mg/Ml Cartridge IVPUSH 2 mg Q3H PRN Administration Pain, Severe (Pain Scale 7-10) Ondansetron HCl 4 mg 08/14/20 11:55 08/14/20 15:10 Ondansetron Hcl 4 Mg/2 Ml Vial IVPUSH 4 mg Q8H PRN Administration Nausea Sodium Chloride 3 ml 08/14/20 16:00 08/15/20 07:49 0.9 % Sodium Chloride Flush 3 Ml Syringe IVFLUSH Not Given QSHIFT CODI Time Spent With Patient Time: Total time spent is greater than 50% in coordination of care (as documented) at patient's floor/unit and/or counseling patient: Time with patient: 25 - 35 minutes Procedures Date of Service Date of Service: 08/15/20
[2020-08-15] MEDS: Hydrocortisone 10 MG TABLET PO (10:31)
[2020-08-15 11:33] LABS: MANUAL DIFF FLAG NO
[2020-08-15 11:37] LABS: Basophils Percent Auto 0.2 % (0-2); Eosinophils Absolute Auto 0.1 X10*3/uL (0.0-0.4); Eosinophils Percent Auto 2.5 % (0-4); Hematocrit 33.2 % (37-47); Hemoglobin 10.3 g/dl (12.0-16.0); Imm Gran Abs Auto 0.01 X10*3/uL (0.00-0.03); Imm Gran Pct Auto 0.2 % (0.0-0.4); Lymphocytes Percent Auto 44.8 % (20-40); Mean Corpuscular Hemoglobin 26.3 pg (27.0-33.0); Mean Corpuscular Volume 84.7 fL (80-98); Mean Platelet Volume 9.8 fL (9.4-12.3); Monocytes Absolute Auto 0.7 X10*3/uL (0.1-1.2); Monocytes Percent Auto 15.8 % (2-11); Neutrophils Absolute Auto 1.6 X10*3/uL (2.0-8.3); Neutrophils Percent Auto 36.5 % (45-73); Platelet Count 206 X10*3/uL (160-400); Red Blood Count 3.92 X10*6/uL (4.20-5.50); Red Cell Distribution Width 19.9 % (11.0-16.0); White Blood Count 4.4 X10*3/uL (4.8-10.8)
[2020-08-15 11:45] LABS: Glucose, Whole Blood 76 mg/dL (60-115)
[2020-08-15 12:00] LABS: C Reactive Protein 1.04 mg/dL (< or = 0.50)
--- NOTE | 2020-08-15 12:07 | MHC.CM.PN ---
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 PER PT SHE HAS A CANE AND WALKER, DIABETIC SUPPLIES AND CHECKS BS'S 4XDAY, PT HAS A CONSULTING PSYCHOLOGIST DAILY W/19.5HRS/WKLY, PT REPORTS SOMEONE TOLD HER SHE WOULD GET A VNA HOWEVER PT IS NOT HOMEBOUND AND DRIVERS HERSELF, CM WOULD HAVE TO FOLLOW-UP W/PT'S INS [facility] ON SUNDAY. PT VERIFIES HER PCP, PHARMACY AND HCP. D/C PLAN: HOME W/RESUMP OF CONSULTING PSYCHOLOGIST VS HOME W/VNA AND RESUMP OF CONSULTING PSYCHOLOGIST HRS, PT WILL SELF-TRANSPORT, CAR IN PARKING LOT. PHARMACY: [facility] PCP: DR. RAY HCP: MARY LINDER [phone], COPY HAS BEEN REQUESTED
[2020-08-15] MEDS: ondansetron HCL 4 MG/2 ML VIAL IVPUSH (13:38)
[2020-08-15] MEDS: iohexoL 350 MG/ML 100 ML INFUS..BTL IV (15:48)
[2020-08-15 16:35] LABS: Glucose, Whole Blood 67 mg/dL (60-115)
[2020-08-15] MEDS: 0.9 % Sodium Chloride Flush 3 ML SYRINGE IVFLUSH (16:36)
[2020-08-15] MEDS: KCl 20 mEq in 5% Dex/0.45% Sod 20 MEQ/1,000 ML IV.SOLN 125 MEQ IVCONT ×2 (16:43→23:57)
[2020-08-15 20:33] LABS: Glucose, Whole Blood 85 mg/dL (60-115)
[2020-08-16 03:34] VITALS: BP 109/59; PULSE 74; RESP 18; TEMP 36.4; O2SAT 95
[2020-08-16 03:43] LABS: Glucose, Whole Blood 79 mg/dL (60-115)
[2020-08-16 06:20] LABS: Alanine Aminotransferase 26 U/L (0-31); Albumin Level 3.3 g/dL (3.5-5.0); Alkaline Phosphatase 75 U/L (39-117); Anion Gap 9 (12-20); Aspartate Amino Transferase 25 U/L (5-31); Bilirubin Total 0.5 mg/dL (0.0-1.0); Blood Urea Nitrogen 2 mg/dL (9-16); Calcium 8.9 mg/dL (8.4-10.2); Carbon Dioxide 29 mmol/L (22-29); Chloride 109 mmol/L (96-108); Creatinine Clr Calc Pharmacy 131.6; Estimated Glomerular Filt Rate > 60; Glucose Random 92 mg/dL (60-115); Potassium 3.7 mmol/L (3.3-5.1); Sodium 143 mmol/L (135-145)
[2020-08-16 07:19] VITALS: BP 119/72; PULSE 71; RESP 17; TEMP 36.4; O2SAT 97
[2020-08-16] MEDS: KCl 20 mEq in 5% Dex/0.45% Sod 20 MEQ/1,000 ML IV.SOLN 125 MEQ IVCONT ×2 (08:15→15:34)
[2020-08-16] MEDS: Hydrocortisone 10 MG TABLET PO (09:47)
[2020-08-16] MEDS: Famotidine/PF 20 MG/2 ML VIAL IVPUSH ×2 (09:48→20:26)
--- NOTE | 2020-08-16 10:21 | PM.PNGS ---
Subjective Subjective Date of Service: 08/16/20 Patient reports: no new complaints Interval history: HD #2. States less pain over last 24 hours, last dose morphine yesterday at 1:30 pm. No nausea, emesis or BM's. Only ambulating in her room. Physical Exam Vital Signs: Vital Signs: Last Vital Signs Temp 97.5 F 08/16/20 07:19 Pulse 71 08/16/20 07:19 Resp 17 08/16/20 07:19 BP 119/72 08/16/20 07:19 Pulse Ox 97 08/16/20 07:19 Body Mass Index 32.0 Const: General: cooperative, comfortable, alert and awake Nutritional Appearance: obese GI: Inspection: Yes normal to inspection Palpation (GI): Soft to palpation, Tenderness to palpation present (GI) (very minimal tenderness to left of epigastrium), no guarding, not rigid, no hernias and no masses Extrem: General: No no pedal edema and No no calf tenderness Progress Note: A&P Assessment and plan (1) Partial bowel obstruction: Status: Acute (2) History of Ofelia-en-Y gastric bypass: Status: Chronic (3) Obesity: Status: Acute (4) Seropositive rheumatoid arthritis: Status: Acute (5) Secondary adrenal insufficiency: Status: Acute Assessment and Plan: Hd # 2 for 40 you woman with hx of RNYGBP 2019 who presented with partial SBO. Obstruction has resolved spontaneously confirmed by CT yesterday. Today minimal tenderness only, no nausea or emesis. Discussed with Dr Gaviria, will start bariatric phase 3 diet today and laxatives. Miralax 17 gm packets q 2h x 4 today. IVF reduced, patient is encouraged to ambulate in hallways. I have added back some of her home medications today. Fall Risk Details Current Medications: Current Medications Generic Name Dose Route Start Last Admin Trade Name Freq PRN Reason Stop Dose Admin Famotidine 20 mg 08/14/20 11:55 08/16/20 09:48 Famotidine/Pf 20 Mg/2 Ml Vial IVPUSH 20 mg BID CODI Administration Hydrocortisone 10 mg 08/15/20 09:00 08/16/20 09:47 Hydrocortisone 10 Mg Tablet PO 10 mg DAILY CODI Administration Metoprolol Tartrate 5 mg/ 55 mls @ 220 mls/hr 08/14/20 10:45 08/16/20 09:51 Sodium Chloride IV Not Given Q6H CODI Potassium Chloride/Dextrose/Sod Cl 20 meq in 1,000 mls @ 125 mls/hr 08/15/20 16:45 08/16/20 08:15 IVCONT 125 mls/hr .Q8H CODI Administration Morphine Sulfate 2 mg 08/14/20 15:48 08/15/20 13:34 Morphine Sulfate 2 Mg/Ml Cartridge IVPUSH 2 mg Q3H PRN Administration Pain, Severe (Pain Scale 7-10) Ondansetron HCl 4 mg 08/14/20 11:55 08/15/20 13:38 Ondansetron Hcl 4 Mg/2 Ml Vial IVPUSH 4 mg Q8H PRN Administration Nausea Sodium Chloride 3 ml 08/14/20 16:00 08/16/20 08:15 0.9 % Sodium Chloride Flush 3 Ml Syringe IVFLUSH Not Given QSHIFT CODI Time Spent With Patient Time: Total time spent is greater than 50% in coordination of care (as documented) at patient's floor/unit and/or counseling patient: 30 Time with patient: 25 - 35 minutes Procedures Date of Service Date of Service: 08/16/20
[2020-08-16 11:18] VITALS: BP 125/76; PULSE 70; RESP 16; TEMP 36.2; O2SAT 98
[2020-08-16] MEDS: buPROPion HCL 100 MG TABLET PO (11:32)
[2020-08-16] MEDS: Sertraline HCL 100 MG TABLET PO (11:32)
[2020-08-16] MEDS: polyethylene glycoL 3350 17 GM POWD.PACK PO ×4 (11:33→18:36)
[2020-08-16 11:41] LABS: Glucose, Whole Blood 88 mg/dL (60-115)
[2020-08-16] MEDS: ondansetron HCL 4 MG/2 ML VIAL IVPUSH (13:34)
[2020-08-16] MEDS: Morphine Sulfate 2 MG/ML CARTRIDGE IVPUSH (14:55)
[2020-08-16 15:19] VITALS: BP 126/83; PULSE 73; RESP 15; TEMP 36.2; O2SAT 95
[2020-08-16 16:20] LABS: Glucose, Whole Blood 115 mg/dL (60-115)
--- NOTE | 2020-08-16 18:45 | PC.NURSE ---
last dose of mralax given, pt ambulated in hallway and took a shower, no results from laxative at this time
[2020-08-16 19:12] VITALS: BP 132/75; PULSE 58; RESP 15; TEMP 36.1; O2SAT 100
[2020-08-16] MEDS: Gabapentin 600 MG TABLET PO (20:26)
--- NOTE | 2020-08-16 20:37 | P.PNGS_ITS ---
Subjective Subjective Date of Service: 08/17/20 Interval history: Previous notes and H/P as well as all xrays performed and blood work have been reviewed by me. Feels better. Tolerating phase 3 diet. Received Miralax but no results yet. Physical Exam Vital Signs: Vital Signs: Last Vital Signs Temp 97 F 08/16/20 19:12 Pulse 58 08/16/20 19:12 Resp 15 08/16/20 19:12 BP 132/75 08/16/20 19:12 Pulse Ox 100 08/16/20 19:12 Body Mass Index 32.0 GI: Inspection: Yes normal to inspection Palpation (GI): Soft to palpation and Other GI palpation findings present (mild LUQ tenderness) Extrem: Right lower extremity: normal to inspection (no calf tenderness) L eft lower extremity: normal to inspection (no calf tenderness) Progress Note: A&P Assessment and plan (1) Obesity: Status: Acute (2) BMI 32.0-32.9,adult: Status: Acute (3) Partial bowel obstruction: Status: Acute (4) Constipation: Status: Acute Assessment and Plan: Continue Miralax Add fleet enemas and Dulcolax MO Continue phase 3 diet Fall Risk Details Current Medications: Current Medications Generic Name Dose Route Start Last Admin Trade Name Freq PRN Reason Stop Dose Admin Bupropion HCl 100 mg 08/16/20 11:00 08/16/20 11:32 Bupropion Hcl 100 Mg Tablet PO 100 mg DAILY CODI Administration Famotidine 20 mg 08/14/20 11:55 08/16/20 20:26 Famotidine/Pf 20 Mg/2 Ml Vial IVPUSH 20 mg BID CODI Administration Gabapentin 600 mg 08/16/20 21:00 08/16/20 20:26 Gabapentin 600 Mg Tablet PO 600 mg BEDTIME CODI Administration Hydrocortisone 15 mg 08/17/20 09:00 Hydrocortisone 10 Mg Tablet PO DAILY CODI Metoprolol Tartrate 5 mg/ 55 mls @ 220 mls/hr 08/14/20 10:45 08/16/20 16:16 Sodium Chloride IV Not Given Q6H CODI Potassium Chloride/Dextrose/Sod Cl 20 meq in 1,000 mls @ 50 mls/hr 08/15/20 16:45 08/16/20 15:34 IVCONT 125 mls/hr .Q20H CODI Administration Morphine Sulfate 2 mg 08/14/20 15:48 08/16/20 14:55 Morphine Sulfate 2 Mg/Ml Cartridge IVPUSH 2 mg Q3H PRN Administration Pain, Severe (Pain Scale 7-10) Ondansetron HCl 4 mg 08/14/20 11:55 08/16/20 13:34 Ondansetron Hcl 4 Mg/2 Ml Vial IVPUSH 4 mg Q8H PRN Administration Nausea Sertraline HCl 100 mg 08/16/20 11:00 08/16/20 11:32 Sertraline Hcl 100 Mg Tablet PO 100 mg DAILY CODI Administration Sodium Chloride 3 ml 08/14/20 16:00 08/16/20 15:13 0.9 % Sodium Chloride Flush 3 Ml Syringe IVFLUSH Not Given QSHIFT CODI Time Spent With Patient Time: Total time spent is greater than 50% in coordination of care (as documented) at patient's floor/unit and/or counseling patient: Time with patient: 25 - 35 minutes Procedures Date of Service Date of Service: 08/17/20
[2020-08-16 22:16] LABS: Glucose, Whole Blood 79 mg/dL (60-115)
[2020-08-16 23:11] VITALS: BP 100/57; PULSE 82; RESP 20; TEMP 36; O2SAT 98
[2020-08-17] MEDS: 0.9 % Sodium Chloride Flush 3 ML SYRINGE IVFLUSH (00:23)
[2020-08-17 03:03] VITALS: BP 108/55; PULSE 89; RESP 20; TEMP 36.1; O2SAT 90
[2020-08-17 04:13] LABS: Glucose, Whole Blood 79 mg/dL (60-115)
[2020-08-17 07:51] VITALS: BP 114/76; PULSE 95; RESP 18; TEMP 36; O2SAT 95
[2020-08-17 08:10] LABS: Alanine Aminotransferase 29 U/L (0-31); Albumin Level 3.6 g/dL (3.5-5.0); Alkaline Phosphatase 80 U/L (39-117); Anion Gap 12 (12-20); Aspartate Amino Transferase 31 U/L (5-31); Bilirubin Total 0.5 mg/dL (0.0-1.0); Blood Urea Nitrogen 3 mg/dL (9-16); Carbon Dioxide 28 mmol/L (22-29); Chloride 109 mmol/L (96-108); Creatinine Clr Calc Pharmacy 120.8; Estimated Glomerular Filt Rate > 60; Glucose Random 77 mg/dL (60-115); Potassium 3.9 mmol/L (3.3-5.1); Sodium 145 mmol/L (135-145); Total Protein 6.4 g/dL (6.5-8.0)
[2020-08-17] MEDS: Hydrocortisone 10 MG TABLET 15 MG PO (08:13)
[2020-08-17] MEDS: Sertraline HCL 100 MG TABLET PO (08:13)
[2020-08-17] MEDS: buPROPion HCL 100 MG TABLET PO (08:13)
[2020-08-17] MEDS: bisacodyL 10 MG SUPP.RECT PR (08:14)
[2020-08-17] MEDS: Famotidine/PF 20 MG/2 ML VIAL IVPUSH (08:14)
[2020-08-17] MEDS: Sodium Phosphate,Mono-Dibasic 133 ML ENEMA PR (09:00)
[2020-08-17 10:10] VITALS: BP 106/73; PULSE 73
[2020-08-17 10:30] LABS: Glucose, Whole Blood 97 mg/dL (60-115)
[2020-08-17] MEDS: polyethylene glycoL 3350 17 GM POWD.PACK PO (11:01)
[2020-08-17 12:00] VITALS: BP 120/98; PULSE 80; RESP 18; TEMP 36.1; O2SAT 97
--- NOTE | 2020-08-17 12:44 | MHC.CM.PN ---
EMR REVIEWED, PT TOLERATING PHASE 3 DIET HOWEVER BOWEL FUNCTION HAS NOT RETURNED, PT STARTED ON MIRALAX AND BISACDYL, PLAN FOR D/C ONCE BBOWEL FX RETURNS.
--- NOTE | 2020-08-17 13:33 | MHC.CM.PN ---
CM ATTEMPTED TO CALL [facility]IA[facility] AT 1:32PM [phone] DUE TO PT'S REQUEST FOR A VNA, CM WILL MEET ME W/PT TO VERIFY REQUEST.
--- NOTE | 2020-08-17 15:30 | PM.DS ---
DS: Providers Provider Date of Service: 08/17/20 Date of admission: 08/14/20 11:55 Primary care physician: Unknown Physician DS: Diagnosis Discharge Diagnosis (1) Obesity: Status: Acute (2) BMI 32.0-32.9,adult: Status: Acute (3) Partial bowel obstruction: Status: Acute (4) Constipation: Status: Acute DS: Medications Discharge Medications Home Medications: Home Medications Medication Instructions Recorded Confirmed bupropion HCl 100 mg tablet 100 mg PO .once a day tab 01/13/20 08/14/20 cyclobenzaprine 5 mg tablet 5 mg PO TID PRN 01/13/20 07/18/20 metoprolol tartrate 25 mg tablet 25 mg PO BID 01/13/20 08/14/20 pantoprazole 40 mg tablet,delayed 40 mg PO DAILY 01/13/20 08/14/20 release sertraline 100 mg tablet 100 mg PO DAILY 01/13/20 08/14/20 spironolactone 25 mg tablet 25 mg PO DAILY 01/13/20 08/14/20 vitamin B complex 1 tab PO DAILY 01/13/20 07/18/20 zolpidem 10 mg tablet 10 mg PO BEDTIME PRN 04/02/20 08/14/20 blood sugar diagnostic #10 ea 06/04/20 07/18/20 cholecalciferol (vitamin D3) 50 50 mcg PO DAILY 06/04/20 08/14/20 mcg (2,000 unit) capsule furosemide 40 mg tablet 120 mg PO Q OTHER DAY PRN 06/04/20 08/14/20 lancets 33 gauge #100 ea 06/04/20 07/18/20 sacubitril 24 mg-valsartan 26 mg 1 tab PO BID 06/04/20 07/18/20 tablet alcohol swabs 0 pad TOPICAL 07/27/20 diclofenac sodium 1 % topical gel 1 ea TOPICAL QID 07/27/20 08/14/20 gabapentin 100 mg capsule 200 mg PO BID@0900,1700 07/27/20 08/14/20 Previous Rx's Medication Instructions Recorded sulfasalazine 500 mg tablet 1,000 mg PO BID #120 tab 03/31/20 hydroxychloroquine 200 mg tablet 200 mg PO BID #180 tab 04/08/20 folic acid 1 mg tablet 1 mg PO QAM #30 tab 04/27/20 albuterol sulfate 2 puff INHALATION Q4-6H PRN #6.7 g 05/07/20 acarbose 25 mg tablet 25 mg PO TID 30 Days #90 tab 06/04/20 hydrocortisone 10 mg tablet 10 mg PO DAILY 30 Days #30 tab 06/04/20 hydrocortisone 5 mg tablet 5 mg PO DAILY 30 Days #30 tab 06/04/20 sarilumab 200 mg/1.14 mL 200 mg SUBCUT Q2W #2.28 ml 06/15/20 subcutaneous pen injector TRUEplus Lancets 33 gauge #100 ea NS 06/23/20 blood sugar diagnostic #100 ea 06/23/20 phenazopyridine 100 mg tablet 100 mg PO TID PRN 4 Days #12 tab 07/19/20 sulfamethoxazole 800 1 tab PO BID 3 Days #6 tab 07/19/20 mg-trimethoprim 160 mg tablet tamsulosin 0.4 mg capsule 0.4 mg PO BEDTIME 14 Days #14 cap 07/19/20 tramadol 50 mg tablet 50 mg PO Q6H PRN #14 tab 07/19/20 gabapentin 600 mg tablet 600 mg PO BEDTIME #30 tab 08/11/20 psyllium husk 0.4 g PO DAILY #30 cap 08/17/20 DS: Summary Time Spent with Patient Time attestation: This is a 40 yo woman s/p RNYGBP 2018, who has secondary adrenal insufficiency, HTN, hypoglycemia and RA. Pt was admitted on 08/14 with partial SBO and fecalization of stool in large and small intestines.She was kept NPO and repeat CT with oral ad contrast the day after admission showed that SBO had resolved. Patient was then started on bariatric phase 3 diet and given bowel regimen with laxatives, enema and dulcolax which resulted in BM x 6 and resolution of symptoms. Will in the hospital, BP's remained 90 - 110's without hypertensive medications. Patient was discharged home on bariatric diet to have 2 protein shakes per day and one meal of protien and vegetables. She was told not to resume her anti HTN meds until she spoke to her PCP this week. She will add psyllium daily and follow up in the bariatric office within 1 week. Discharge plan discussed with Dr Gaviria. Time spent providing and/or coordinating discharge services: 15 Discharge coordination time: Less than 30 minutes Quality: Stroke Does the patient have a stroke diagnosis?: No Physical Exam Vital Signs: Vital Signs: Last Vital Signs Temp 97.0 F 08/17/20 12:00 Pulse 80 08/17/20 12:00 Resp 18 08/17/20 12:00 BP 120/98 H 08/17/20 12:00 Pulse Ox 97 08/17/20 12:00 Body Mass Index 32.0 DS: Data Data Completed and Pending Completed studies during hospitalization [Text1]: Procedures CT abd x 2. Labs on day of discharge: Laboratory Results - last 24 hr 08/16/20 08/16/20 08/17/20 16:14 22:12 04:08 Sodium Potassium Chloride Carbon Dioxide Anion Gap BUN Creatinine Estim Creat Clear Calc Estimated GFR POC Glucose 115 79 79 Random Glucose Calcium Total Bilirubin AST ALT Alkaline Phosphatase Total Protein Albumin 08/17/20 08/17/20 06:42 10:26 Sodium 145 Potassium 3.9 Chloride 109 H Carbon Dioxide 28 Anion Gap 12 BUN 3 L Creatinine 0.61 Estim Creat Clear Calc 120.8 Estimated GFR > 60 POC Glucose 97 Random Glucose 77 Calcium 9.0 Total Bilirubin 0.5 AST 31 ALT 29 Alkaline Phosphatase 80 Total Protein 6.4 L Albumin 3.6 Discharge Plan Discharge Anticipated Discharge Date/Time: 08/17/20 15:22 Patient Disposition: Home, Self-Care Discharge Diagnosis: partial SBO s/p GBP Referrals: Sylvia ANDRADE [Outside] - 1 Day (RESUMPTION OF CARE PLEASE CALL ABOVE NUMBER IF YOU HAVE NOT HEARD FROM A NURSE BY NOON ON Sunday08/18/20) Physician,Unknown [Primary Care Provider] - 1 Week Discharge Medications: New psyllium husk 0.4 gram capsule 0.4 g PO DAILY Qty: 30 RF: 4 Continued sulfasalazine 500 mg tablet 1,000 mg PO BID Qty: 120 RF: 3 hydroxychloroquine 200 mg tablet 200 mg PO BID Qty: 180 RF: 1 folic acid 1 mg tablet 1 mg PO QAM Qty: 30 RF: 11 sarilumab [Kevzara] 200 mg/1.14 mL pen injector 200 mg subcut Q2W Qty: 2.28 RF: 3 (DME) FreeStyle Lite Strips Strip See Rx Instructions .MEDSUPPLY Qty: 100 RF: 6 (DME) lancets [TRUEplus Lancets] 33 gauge misc See Rx Instructions .ROUTE .MEDSUPPLY Qty: 100 RF: 5 tamsulosin 0.4 mg capsule 0.4 mg PO BEDTIME 14 Days Qty: 14 RF: 0 sulfamethoxazole-trimethoprim [Bactrim DS] 800-160 mg tablet 1 tab PO BID 3 Days Qty: 6 RF: 0 phenazopyridine [Pyridium] 100 mg tablet 100 mg PO TID PRN (Reason: spasms) 4 Days Qty: 12 RF: 0 tramadol 50 mg tablet 50 mg PO Q6H PRN (Reason: pain (scale score 4-6)) Qty: 14 RF: 0 gabapentin 600 mg tablet 600 mg PO BEDTIME Qty: 30 RF: 5 albuterol sulfate 90 mcg/actuation HFA aerosol inhaler 2 puff inhalation Q4-6H PRN (Reason: shortness of breath or wheezing) Qty: 6.7 RF: 0 vitamin B complex [B Complex-Vitamin B12] Tablet 1 tab PO DAILY RF: 0 cyclobenzaprine 5 mg tablet 5 mg PO TID PRN (Reason: Pain) RF: 0 spironolactone 25 mg tablet 25 mg PO DAILY RF: 0 pantoprazole 40 mg tablet,delayed release (DR/EC) 40 mg PO DAILY RF: 0 sertraline 100 mg tablet 100 mg PO DAILY RF: 0 bupropion HCl 100 mg tablet 100 mg PO .once a day RF: 0 zolpidem 10 mg tablet 10 mg PO BEDTIME PRN (Reason: Insomnia) RF: 0 (DME) lancets 33 gauge misc See Rx Instructions ea topical .MEDSUPPLY Qty: 100 RF: 0 cholecalciferol (vitamin D3) 50 mcg (2,000 unit) capsule 50 mcg PO DAILY RF: 0 (DME) blood sugar diagnostic Strip See Rx Instructions ea Not Applicable .MEDSUPPLY Qty: 10 RF: 0 hydrocortisone 10 mg tablet 10 mg PO DAILY 30 Days Qty: 30 RF: 4 hydrocortisone 5 mg tablet 5 mg PO DAILY 30 Days Qty: 30 RF: 4 acarbose 25 mg tablet 25 mg PO TID 30 Days Qty: 90 RF: 5 Held metoprolol tartrate 25 mg tablet 25 mg PO BID RF: 0 Hold Instructions: Discuss with PCP sacubitril-valsartan 24-26 mg tablet 1 tab PO BID RF: 0 Hold Instructions: Discuss restart with PCP furosemide 40 mg tablet 120 mg PO Q OTHER DAY PRN (Reason: Edema) RF: 0 Hold Instructions: Discuss with PCP Discontinued oxycodone 5 mg tablet 5 mg PO Q4H PRN (Reason: Pain) RF: 0 Discharge Orders: Discharge Order (Routine); Ordered 08/17/20 Ordered By: Antonieta Walker Diet: other Activity on Discharge: As tolerated Stand Alone Forms: Patient Portal Discharge page Care Plan Goals: weight loss, no constipation Health Concerns: obesity Plan of Treatment: Home with 2 protien shakes and one meal of protein and vegetables. Take psyllium once daily. Call office at [phone] to schedule follow up appt within one week with MIKE Garcia. Call PCP to discuss restarting blood pressure meds. Assessment: Partial SBO resolved
--- NOTE | 2020-08-17 15:30 | MHC.CM.PN ---
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
[2020-08-17 15:33] VITALS: BP 122/82; PULSE 74; RESP 17; TEMP 36.6; O2SAT 97
== END 2020-08-17 16:04 | disposition home or self-care (01) | DRG 389 ==
LOC: HO.ED 07:39 → HO.EDOVER 12:56 → HO.S3 13:34
PROVIDERS: Physician Assistant; Admitting Provider Surgery; Emergency Provider Emergency Medicine Emergency Medical Services; PCP Internal Medicine; Visit Provider Surgery
DX: K56.690 Other partial intestinal obstruction (principal); E27.49 Other adrenocortical insufficiency; M05.9 Rheumatoid arthritis with rheumatoid factor, unspecified; K59.00 Constipation, unspecified; E66.9 Obesity, unspecified; E11.42 Type 2 diabetes mellitus with diabetic polyneuropathy; Z68.32 Body mass index [BMI] 32.0-32.9, adult; Z20.822 Contact with and (suspected) exposure to COVID-19; Z98.84 Bariatric surgery status; Z79.899 Other long term (current) drug therapy
CPT/HCPCS: 36415; 74176; 74177; 80053; 81001; 81003; 82947; 83605; 83690; 83735; 85025; 85610; 85730; 86140; 86850; 86900; 86901; 87086; 87635; 93005; 96365; 96375; 99285; J1885; J2270; J2405; Q9967

== ENCOUNTER 2020-08-25 09:02 | Outpatient (REF) | payer OTHER, SELFPAY ==
--- NOTE | ~2020-08-25 | US_ITS ---
EXAMINATION: US RETROPERITONEAL LIMITED (RENAL ONLY) CLINICAL INFORMATION: Calculus of kidney. COMPARISON: CT abdomen and pelvis 08/15/2020. Ultrasound abdomen 01/23/2018. Ultrasound abdomen was elastography 03/20/2017. TECHNIQUE: Real-time imaging of the kidneys. FINDINGS: RIGHT KIDNEY: 10.1 x 6.0 x 5.8 cm (SAG x AP x TRV). The kidney is normal in size, contour, and echogenicity. Renal cortical thickness is normal. There is a 1 x 0.6 cm stone in the lower pole. No focal parenchymal lesions or hydronephrosis. LEFT KIDNEY: 10.4 x 5.8 x 5.5 cm (SAG x AP x TRV). The kidney is normal in size, contour, and echogenicity. Renal cortical thickness is normal. There is a 6 mm stone in the midpole. No focal parenchymal lesions or hydronephrosis. US/US renal BI IMPRESSION: Bilateral renal stones.
== END 2020-08-25 09:03 | disposition home or self-care (01) ==
LOC: HO.US 09:02
PROVIDERS: Visit Provider Urology
DX: N20.0 Calculus of kidney (principal)
CPT/HCPCS: 76775

== ENCOUNTER 2020-09-10 13:41 | Outpatient (REF) | payer OTHER, SELFPAY ==
[2020-09-10 15:06] LABS: Estimated Average Glucose 103 mg/dL; Hemoglobin A1c % 5.2 %
[2020-09-10 15:21] LABS: Glucose Urine UA NEG (NEG); Leukocyte Esterase Urine 2+ (NEG); Nitrite Urine POS (NEG); Specific Gravity - Urine 1.025 (1.005-1.025); Urine Blood NEG (NEG); Urine Ketones NEG (NEG); Urine Protein NEG (NEG-TRACE)
[2020-09-10 15:24] LABS: Appearance Urine CLEAR; Color Urine YELLOW
[2020-09-10 15:24] LABS: Alanine Aminotransferase 33 U/L (0-31); Albumin Level 3.9 g/dL (3.5-5.0); Alkaline Phosphatase 94 U/L (39-117); Anion Gap 12 (12-20); Aspartate Amino Transferase 31 U/L (5-31); Bilirubin Total 0.4 mg/dL (0.0-1.0); Blood Urea Nitrogen 11 mg/dL (9-16); Calcium 9.2 mg/dL (8.4-10.2); Carbon Dioxide 23 mmol/L (22-29); Chloride 108 mmol/L (96-108); Cholesterol 185 mg/dL; Estimated Glomerular Filt Rate > 60; Glucose Fasting 97 mg/dL (60-99); HDL Cholesterol 50 mg/dL; LDL Cholesterol Calculated 101 mg/dl; Potassium 3.8 mmol/L (3.3-5.1); Sodium 139 mmol/L (135-145); Total Protein 6.8 g/dL (6.5-8.0); Triglycerides 171 mg/dL
[2020-09-10 15:37] LABS: Creatinine Urine 98.84 mg/dL; Microalbum/Creatinine Ratio Ur 18.2 ug/mg cr
[2020-09-10 15:45] LABS: Free T4 (Free Thyroxine) 0.98 ng/dL (0.71-1.85); Thyroid Stimulating Hormone 1.19 uIU/mL (0.32-4.0); Vitamin D 25-OH Total 17.1 ng/mL (>30)
[2020-09-10 15:54] LABS: Bacteria Urine 3+ /LPF; Granular Casts Urine 0-2 /LPF; RBC Urine 0 /HPF (0); Squamous Epithelial Cell Urine 2+ /LPF
[2020-09-12 12:37] LABS: LDL Cholesterol Direct 95 mg/dL (<100)
== END 2020-09-10 13:42 | disposition home or self-care (01) ==
LOC: HO.LAB 13:41
PROVIDERS: PCP Internal Medicine; Visit Provider Internal Medicine Endocrinology, Diabetes & Metabolism
DX: N39.0 Urinary tract infection, site not specified (principal); E27.49 Other adrenocortical insufficiency; M05.9 Rheumatoid arthritis with rheumatoid factor, unspecified; E16.2 Hypoglycemia, unspecified; K91.2 Postsurgical malabsorption, not elsewhere classified; Z79.899 Other long term (current) drug therapy; Z98.84 Bariatric surgery status; Z86.39 Personal history of other endocrine, nutritional and metabolic disease
CPT/HCPCS: 36415; 80053; 80061; 81001; 82043; 82306; 83036; 83721; 84439; 84443; 87086; 87088; 87186; 99212

== ENCOUNTER → 2020-09-29 15:02 | Outpatient (BNVA) | payer OTHER, SELFPAY | PROVIDERS: PCP Internal Medicine | DX: Z13.89 Encounter for screening for other disorder (principal) | CPT/HCPCS: Q3014 ==

== ENCOUNTER → 2020-10-06 14:41 | Outpatient (BNVA) | payer OTHER, SELFPAY | PROVIDERS: PCP Internal Medicine; Referring Provider Internal Medicine; Visit Provider Physician Assistant | DX: E66.9 Obesity, unspecified (principal); Z98.84 Bariatric surgery status | CPT/HCPCS: 99212 ==

== ENCOUNTER → 2020-10-25 09:24 | Outpatient (BNVA) | payer OTHER, SELFPAY | PROVIDERS: PCP Internal Medicine; Visit Provider Internal Medicine | DX: G89.4 Chronic pain syndrome (principal); F11.90 Opioid use, unspecified, uncomplicated | CPT/HCPCS: 99202 ==

== ENCOUNTER → 2020-11-26 10:48 | Outpatient (BNVA) | payer OTHER, SELFPAY | PROVIDERS: PCP Internal Medicine; Visit Provider Internal Medicine | DX: G89.4 Chronic pain syndrome (principal) | CPT/HCPCS: 99212 ==

== ENCOUNTER 2020-12-06 06:11 | Day surgery (SDC) | payer OTHER, SELFPAY ==
[2020-11-30 11:29] VITALS: BMI 34.5
--- NOTE | 2020-12-03 10:26 | HO.ANESPROP2 ---
Documented by User: Dulce Short NP 12/03/20 10:30 HPI - Anesthesia Eval Consult details Narrative: 40yo F for Right Cystoscopy, Ureteroroscopy, Retro, Laser,with stent placement s/p same 07/19/20 with GA (anesthesia record not avail) PMFSH Active Problems Active Problems: All Active Problems (Updated 10/25/20 @ 10:24 by Willis Strickland MD) COVID-19 (Acute) Right ureteral stone (Acute) Calcium oxalate monohydrate kidney stones (Acute) Partial bowel obstruction (Acute) Constipation (Acute) UTI (urinary tract infection) (Acute) Chronic, continuous use of opioids (Acute) Chronic pain syndrome (Acute) History of Ofelia-en-Y gastric bypass (Chronic) Obesity (Acute) Seropositive rheumatoid arthritis (Acute) History of diabetes mellitus resolved following bariatric surgery (Acute) Hypoglycemia after GI (gastrointestinal) surgery (Acute) Secondary adrenal insufficiency (Acute) Localized osteoarthritis of knees, bilateral (Acute) Past Medical History Medical History BMI 32.0-32.9,adult Chronic pain syndrome Chronic, continuous use of opioids Diabetic neuropathy History of diabetes mellitus resolved following bariatric surgery Hypoglycemia after GI (gastrointestinal) surgery Intestinal malabsorption Localized osteoarthritis of knees, bilateral Obesity Secondary adrenal insufficiency Seropositive rheumatoid arthritis UTI (urinary tract infection) Family History Family History Father Epilepsia Depression Anxiety Colon cancer Mother HTN (hypertension) DM (diabetes mellitus) Heart disease RA (rheumatoid arthritis) Sister No problems noted. Sister No problems noted. Surgical History Surgical History H/O removal of cyst H/O vaginal hysterectomy History of esophagogastroduodenoscopy (EGD) History of hip replacement History of kidney surgery History of Ofelia-en-Y gastric bypass Hx laparoscopic cholecystectomy Hx of cystoscopy S/P repair of paraesophageal hernia Social History Social History Household Members: None Housing: Apartment Are you a primary director of career resources to a significant other at home: No Do you presently have visiting nurse or other home services: No Alcohol intake: never Patient Tobacco Use Status: Never used Tobacco e-Cigarette/Vaping Use: Never Used Use of substances other than those prescribed or required for medical reasons: No Have you been hit, kicked, punched, or otherwise hurt by someone within the past year? If so, by whom?: No Are you DNR?: No Advance Directives: No Advance Directives Information Provided: No Advance Directives on File: No Recently lost weight without trying: No Eating poorly because of decreased appetite: No Nutrition Risks: No Nutritional Risk Patient : No FDLMP: N/A Poor oral hygiene: No service: No Current occupational status: [employer] Allergies Allergy/AdvReac Type Severity Reaction Status Date / Time No Known Allergies Allergy Verified 11/30/20 11:07 Home Medications Medication Instructions Recorded Confirmed Last Taken Type bupropion HCl 100 mg tablet 100 mg PO .once a day tab 01/13/20 11/30/20 Unknown History cyclobenzaprine 5 mg tablet 5 mg PO TID PRN 01/13/20 11/30/20 Unknown History metoprolol tartrate 25 mg tablet 25 mg PO BID 01/13/20 11/30/20 Unknown History pantoprazole 40 mg tablet,delayed 40 mg PO DAILY 01/13/20 11/30/20 Unknown History release sertraline 100 mg tablet 100 mg PO DAILY 01/13/20 11/30/20 Unknown History spironolactone 25 mg tablet 25 mg PO DAILY 01/13/20 11/30/20 Unknown History vitamin B complex (B 1 tab PO DAILY 01/13/20 11/30/20 Unknown History Complex-Vitamin B12) zolpidem 10 mg tablet 10 mg PO BEDTIME PRN 04/02/20 11/30/20 Unknown History blood sugar diagnostic #10 ea 06/04/20 09/10/20 Unknown History furosemide 40 mg tablet 120 mg PO Q OTHER DAY PRN 06/04/20 11/30/20 Unknown History lancets 33 gauge #100 ea 06/04/20 09/10/20 Unknown History sacubitril 24 mg-valsartan 26 mg 1 tab PO BID 06/04/20 09/10/20 Unknown History tablet omeprazole 20 mg capsule,delayed 20 mg PO DAILY 09/29/20 11/30/20 Unknown History release oxycodone 5 mg tablet 5 mg PO Q6H PRN 10/25/20 11/30/20 Unknown History Exam Exam Date and Time: December 03, 2020 1026 Height,Weight and Vital Signs: Height 5 ft 3 in Weight 88.451 kg Pertinent Lab Results Pertinent Lab Results: Laboratory Tests 08/15/20 09/10/20 11:17 14:46 WBC 4.4 L Hgb 10.3 L Hct 33.2 L Plt Count 206 Sodium 139 Potassium 3.8 Chloride 108 Carbon Dioxide 23 BUN 11 D Creatinine 0.64 Narrative Narrative: EKG 07/2020 Vent. Rate : 078 BPM ? ? Atrial Rate : 078 BPM ?? P-R Int : 158 ms? QRS Dur : 090 ms ? ? QT Int : 426 ms ? ? ? P-R-T Axes : 025 026 046 degrees ?? QTc Int : 485 ms ? Normal sinus rhythm Prolonged QT Abnormal ECG When compared with ECG of 18-JUL-2020 16:50, No significant change was found ECHO 07/2020 Conclusions: - The left ventricular systolic function is low normal.? The ? ? visually estimated ejection fraction is between 50-55%.? - Normal right ventricular cavity size and systolic function.? ? - Normal tricuspid valve structure and function. ?? Assessment and Plan Assessment Anesthesia Assessment: Chart Reviewed Documented by User: Kelley Jang MD 12/06/20 08:31 [facility] Active Problems Active Problems: All Active Problems (Updated 10/25/20 @ 10:24 by Willis Strickland MD) COVID-19 (Acute) Right ureteral stone (Acute) Calcium oxalate monohydrate kidney stones (Acute) Partial bowel obstruction (Acute) Constipation (Acute) UTI (urinary tract infection) (Acute) Chronic, continuous use of opioids (Acute) Chronic pain syndrome (Acute) History of Ofelia-en-Y gastric bypass (Chronic) Obesity (Acute) Seropositive rheumatoid arthritis (Acute) History of diabetes mellitus resolved following bariatric surgery (Acute) Hypoglycemia after GI (gastrointestinal) surgery (Acute) Secondary adrenal insufficiency (Acute) Localized osteoarthritis of knees, bilateral (Acute) S/p covid vaccines Chronic steroid use. Stopped 1 week ago per doctor's orders Past Medical History Medical History BMI 32.0-32.9,adult Chronic pain syndrome Chronic, continuous use of opioids Diabetic neuropathy History of diabetes mellitus resolved following bariatric surgery Hypoglycemia after GI (gastrointestinal) surgery Intestinal malabsorption Localized osteoarthritis of knees, bilateral Obesity Secondary adrenal insufficiency Seropositive rheumatoid arthritis UTI (urinary tract infection) Family History Family History Father Epilepsia Depression Anxiety Colon cancer Mother HTN (hypertension) DM (diabetes mellitus) Heart disease RA (rheumatoid arthritis) Sister No problems noted. Sister No problems noted. Family history of problems with anesthesia: No Surgical History Surgical History H/O removal of cyst H/O vaginal hysterectomy History of esophagogastroduodenoscopy (EGD) History of hip replacement History of kidney surgery History of Ofelia-en-Y gastric bypass Hx laparoscopic cholecystectomy Hx of cystoscopy S/P repair of paraesophageal hernia History of Problems with Anesthesia: No Social History Social History Household Members: None Housing: Apartment Are you a primary director of career resources to a significant other at home: No Do you presently have visiting nurse or other home services: No Alcohol intake: never Patient Tobacco Use Status: Never used Tobacco e-Cigarette/Vaping Use: Never Used Use of substances other than those prescribed or required for medical reasons: No Have you been hit, kicked, punched, or otherwise hurt by someone within the past year? If so, by whom?: No Are you DNR?: No Advance Directives: No Advance Directives Information Provided: No Advance Directives on File: No Recently lost weight without trying: No Eating poorly because of decreased appetite: No Nutrition Risks: No Nutritional Risk Patient : No FDLMP: N/A Poor oral hygiene: No service: No Current occupational status: disabled Meds Allergies Allergy/AdvReac Type Severity Reaction Status Date / Time No Known Allergies Allergy Verified 11/30/20 11:07 Home Medications Medication Instructions Recorded Confirmed Last Taken Type bupropion HCl 100 mg tablet 100 mg PO .once a day tab 01/13/20 11/30/20 Unknown History cyclobenzaprine 5 mg tablet 5 mg PO TID PRN 01/13/20 11/30/20 Unknown History metoprolol tartrate 25 mg tablet 25 mg PO BID 01/13/20 11/30/20 Unknown History pantoprazole 40 mg tablet,delayed 40 mg PO DAILY 01/13/20 11/30/20 Unknown History release sertraline 100 mg tablet 100 mg PO DAILY 01/13/20 11/30/20 Unknown History spironolactone 25 mg tablet 25 mg PO DAILY 01/13/20 11/30/20 Unknown History vitamin B complex (B 1 tab PO DAILY 01/13/20 11/30/20 Unknown History Complex-Vitamin B12) zolpidem 10 mg tablet 10 mg PO BEDTIME PRN 04/02/20 11/30/20 Unknown History blood sugar diagnostic #10 ea 06/04/20 09/10/20 Unknown History furosemide 40 mg tablet 120 mg PO Q OTHER DAY PRN 06/04/20 11/30/20 Unknown History lancets 33 gauge #100 ea 06/04/20 09/10/20 Unknown History sacubitril 24 mg-valsartan 26 mg 1 tab PO BID 06/04/20 09/10/20 Unknown History tablet omeprazole 20 mg capsule,delayed 20 mg PO DAILY 09/29/20 11/30/20 Unknown History release oxycodone 5 mg tablet 5 mg PO Q6H PRN 10/25/20 11/30/20 Unknown History Exam Height,Weight and Vital Signs: Height 5 ft 3 in Weight 88.451 kg Vital Signs Temp Pulse Resp BP Pulse Ox 97.8 F 96 18 103/74 96 12/06/20 06:50 12/06/20 06:50 12/06/20 06:50 12/06/20 06:50 12/06/20 06:50 Pertinent Lab Results Pertinent Lab Results: Laboratory Tests 08/15/20 09/10/20 11:17 14:46 WBC 4.4 L Hgb 10.3 L Hct 33.2 L Plt Count 206 Sodium 139 Potassium 3.8 Chloride 108 Carbon Dioxide 23 BUN 11 D Creatinine 0.64 Lab Results 09/20/21 Range/Units 06:40 POC Glucose 87 (60-115) mg/dL Airway Mallampati Class: III TM Dist: >3cm Neck ROM: Full Loose/Missing/Broken Teeth: No Heart: RRR Lungs: CTAB Assessment and Plan Assessment Anesthesia Assessment: Anesthesia Plan Discussed Final Anesthetic Review Family History of Problems with Anesthesia: No History of Problems with Anesthesia: No NPO: Yes ASA Class: III Final Preanesthetic Review: No Changes in Pt Med Stat, Meds/Allgs Chart Reviewed, Consent Obtained/Reviewed and Anes Risks/Benef Reviewed Patient Risk: Intermediate Procedure Risk: Low Assessment/Block/Sedation in SS: Assess/Block/Sedation-SS Anesthetic Plan Anesthetic Plan: GA Disposition: Standard PACU
[2020-12-06] VITALS (8 sets, daily range): BP systolic 103–133; BP diastolic 62–79; PULSE 85–108; RESP 16–22; TEMP 36.1–36.6; O2SAT 95–100; BMI 35.4
--- NOTE | ~2020-12-06 | FL_ITS ---
EXAMINATION: XR FLUOROSCOPY WITH IMAGES CLINICAL INFORMATION: Right renal stone. COMPARISON: Renal ultrasound August [address] of the abdomen and pelvis July 2020. TECHNIQUE: Fluoroscopy performed by Dr. Luisito Lewis. Fluoroscopy time: 24 seconds Dose: 11 mCi are Images: 1 FINDINGS: Single fluoroscopy image demonstrates the distal end of the right internal ureteral stent. FL/FL guidance in OR IMPRESSION: Fluoroscopy guidance for right ureteral stent placement.
[2020-12-06] MEDS: levoFLOXacin 500 MG TABLET PO (06:41)
[2020-12-06 06:44] LABS: Glucose, Whole Blood 87 mg/dL (60-115)
[2020-12-06] MEDS: Lactated Ringers 1,000 ML 100 ML IVCONT (06:49)
--- NOTE | 2020-12-06 07:36 | MHC.SHP ---
Pre-Procedural Eval Section A Date of Service: 12/06/20 Section B Chief Complaint: calculus of kidney Details of Present Illness: right renal stones Relevant Social History: None Present Medications: see Short Stay Collaborative assessment Medical History: Significant History History of Previous Operations: Relevant previous surgery/procedure and date(s) Allergies: Allergies Allergy/AdvReac Type Severity Reaction Status Date / Time No Known Allergies Allergy Verified 11/30/20 11:07 Review of Systems Sugical H&P ROS: Negative: Constitution, Cardiovascular, Respiratory, Neurological, Psychiatric, Hem-Onc, Allergic/Immunologic, Gastrointestinal, Genitourinary, Musculoskeletal, Integumentary, Endocrine and Eyes/Ears/Nose/Throat Exam Surgical H&P Exam: Normal: HEENT, Normal: Heart, Normal: Lungs, Normal: Extremities, Normal: Abdomen, Normal: Skin and Normal: Neurological Plan Diagnosis/Plan: Unchanged (right ureteroscopy, laser, stent) I have reviewed the history and physical and performed a pertinent physical examination on my patient. No changes have occurred unless specified.
--- NOTE | 2020-12-06 08:09 | P.OP_ITS ---
Operative Note Operative Note Date of Service: 12/06/20 Narrative: PreOperative Diagnosis: Right renal stones Post Operative Diagnosis: Right renal stones x2 Procedure: - right cystoscopy, retrograde - dilatation of ureteric orifice under fluoroscopy - right ureteroscopy, laser lithotripsy, stone basketing - ride stent placement Surgeon: Dr Luisito Lewis Anesthesia: General Indications for procedure: Prior procedure for distal right ureteric stone. On follow-up imaging shows 2 6 mm stones in the right renal pelvis as well as 1 stone on left side. Does have right sided discomfort. Recommend ureteroscopy laser lithotripsy given stone location. Procedure: After informed consent was verified patient was brought to the operating placed in supine position. Anesthesia was administered per protocol. Patient was placed in modified dorsal lithotomy position and prepped and draped in a sterile fashion. Safety pause time-out and side of surgery confirmed. Antibiotics confirmed. Twenty-two Kiswahili placed per urethra. No abnormality noted of bladder. Both ureteric orifices normal position. There was some cystitis picture within the bladder. Right retrograde with open-ended catheter performed. No filling defects seen within ureter or obvious defect within renal pelvis. Ureteric orifice dilated under fluoroscopy with internal cannula of ureteric access sheath. Ureteric access sheath placed over wire up into ureter. Flexible ureteral scope was then placed into renal pelvis. All calices were exa mined. There was a moth-eaten appearance to multiple calices indicative of prior stone formation and passage. 6 mm stones with seen attached to the papilla in the lower pole calices. A holmium laser fiber was used to break the stones into small pieces. A 1.9 Kiswahili 0 tip basket was used to remove fragments which were sent for pathology. Sensor guidewire was placed back to the renal pelvis. Ureteric access sheath was removed. Six Kiswahili by 22 cm double-J stent was placed with good coil in the renal pelvis and the bladder. Bladder was emptied. Patient tolerated the procedure well was extubated in operating room transferred in stable condition to the recovery area. Pathology: Stones Drains: 6 Kiswahili by 22 cm stent
[2020-12-06] MEDS: Phenazopyridine HCL 100 MG TABLET PO (08:58)
[2020-12-06] MEDS: Acetaminophen 325 MG TABLET 650 MG PO (08:58)
== END 2020-12-06 10:07 | disposition home or self-care (01) ==
PROVIDERS: PCP Internal Medicine; Visit Provider Urology
PROC: (CPT 52356; principal; 2020-12-06 07:30)
DX: N20.0 Calculus of kidney (principal); E11.40 Type 2 diabetes mellitus with diabetic neuropathy, unspecified; Z87.442 Personal history of urinary calculi; Z98.84 Bariatric surgery status
CPT/HCPCS: 52356; 82365; 82947; 88300; C1769; C1894; C2617; J1100; J1885; J2250; J2405; J3010; Q9967

== ENCOUNTER 2020-12-14 08:39 | Outpatient (REF) | payer OTHER, SELFPAY ==
[2020-12-14 09:04] LABS: Basophils Percent Auto 0.6 % (0-2); Eosinophils Absolute Auto 0.2 X10*3/uL (0.0-0.4); Eosinophils Percent Auto 5.6 % (0-4); Hematocrit 33.7 % (37-47); Hemoglobin 10.7 g/dl (12.0-16.0); Lymphocytes Absolute Auto 1.2 X10*3/uL (1.2-4.9); Lymphocytes Percent Auto 37.8 % (20-40); MANUAL DIFF FLAG NO; Mean Corpuscular HGB Conc 31.8 g/dl (31.0-35.0); Mean Corpuscular Hemoglobin 27.4 pg (27.0-33.0); Mean Corpuscular Volume 86.2 fL (80-98); Mean Platelet Volume 10.1 fL (9.4-12.3); Monocytes Absolute Auto 0.4 X10*3/uL (0.1-1.2); Monocytes Percent Auto 11.6 % (2-11); Neutrophils Absolute Auto 1.4 X10*3/uL (2.0-8.3); Neutrophils Percent Auto 44.4 % (45-73); Platelet Count 306 X10*3/uL (160-400); Red Blood Count 3.91 X10*6/uL (4.20-5.50); Red Cell Distribution Width 15.6 % (11.0-16.0); White Blood Count 3.2 X10*3/uL (4.8-10.8)
[2020-12-14 09:29] LABS: Alanine Aminotransferase 25 U/L (0-31); Albumin Level 3.8 g/dL (3.5-5.0); Alkaline Phosphatase 98 U/L (39-117); Anion Gap 11 (12-20); Aspartate Amino Transferase 26 U/L (5-31); Bilirubin Total 0.4 mg/dL (0.0-1.0); Blood Urea Nitrogen 9 mg/dL (9-16); C Reactive Protein 0.86 mg/dL (< or = 0.50); Calcium 9.1 mg/dL (8.4-10.2); Carbon Dioxide 23 mmol/L (22-29); Chloride 110 mmol/L (96-108); Cholesterol 151 mg/dL; Estimated Glomerular Filt Rate > 60; Glucose Random 91 mg/dL (60-115); HDL Cholesterol 37 mg/dL; LDL Cholesterol Calculated 82 mg/dl; Potassium 3.7 mmol/L (3.3-5.1); Sodium 140 mmol/L (135-145); Total Protein 6.8 g/dL (6.5-8.0); Triglycerides 160 mg/dL
[2020-12-14 10:33] LABS: Erythrocyte Sedimentation Rate 31 MM/HR (0-20)
== END 2020-12-14 08:40 | disposition home or self-care (01) ==
LOC: HO.LAB 08:39
PROVIDERS: PCP Internal Medicine; Visit Provider Nurse Practitioner Family
DX: Z48.816 Encounter for surgical aftercare following surgery on the genitourinary system (principal); N39.0 Urinary tract infection, site not specified; Z87.442 Personal history of urinary calculi; Z96.0 Presence of urogenital implants; M05.9 Rheumatoid arthritis with rheumatoid factor, unspecified
CPT/HCPCS: 36415; 52310; 80053; 80061; 85025; 85652; 86140; 99212

== ENCOUNTER 2020-12-23 13:24 | Outpatient (REF) | payer OTHER, SELFPAY ==
--- NOTE | ~2020-12-23 | XR_ITS ---
EXAMINATION: XR KNEE, RIGHT CLINICAL INFORMATION: Rheumatoid arthritis COMPARISON: Previous x-ray March 2017 TECHNIQUE: Four views of the right knee. FINDINGS: The bones are osteopenic. Bone alignment is normal. No fracture or dislocation is seen. 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 This is new from March 2017 exam. There is joint space narrowing at the patellofemoral and femoral tibial joint. There is a small joint effusion. XR/XR knee RT 3V IMPRESSION: Osteopenia. Joint space narrowing and small joint effusion. 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
== END 2020-12-23 13:25 | disposition home or self-care (01) ==
LOC: HO.XRAY 13:24
PROVIDERS: PCP Internal Medicine; Visit Provider Nurse Practitioner Family
DX: M05.9 Rheumatoid arthritis with rheumatoid factor, unspecified (principal); M25.561 Pain in right knee; Z79.899 Other long term (current) drug therapy
CPT/HCPCS: 73562; 99212

== ENCOUNTER → 2021-01-06 13:16 | Outpatient (BNVA) | payer OTHER, SELFPAY | PROVIDERS: PCP Internal Medicine; Visit Provider Internal Medicine | DX: M17.11 Unilateral primary osteoarthritis, right knee (principal) | CPT/HCPCS: 20610; 99212; J1100 ==

== ENCOUNTER 2021-02-14 13:14 | Outpatient (REF) | payer OTHER, SELFPAY ==
--- NOTE | ~2021-02-14 | US_ITS ---
EXAMINATION: US RETROPERITONEAL LIMITED (RENAL ONLY) CLINICAL INFORMATION: Personal history of urinary calculi. COMPARISON: Fluoroscopy guidance in OR 12/06/2020. Renal ultrasound 08/25/2020. CT abdomen and pelvis 08/15/2020. TECHNIQUE: Real-time imaging of the kidneys. FINDINGS: RIGHT KIDNEY: 10.7 x 5.3 x 6.3 cm (SAG x AP x TRV). The kidney is normal in size, contour, and echogenicity. Renal cortical thickness is normal. No focal parenchymal lesions or hydronephrosis. There is an echogenic stone in the midpole measuring 0.3 x 0.3 x 0.3 cm. LEFT KIDNEY: 10.1 x 5.4 x 6.8 cm (SAG x AP x TRV). The kidney is normal in size, contour, and echogenicity. Renal cortical thickness is normal. No focal parenchymal lesions or hydronephrosis. There are 2 echogenic stones in the lower pole. Cluster of stones measuring 1.7 x 0.6 x 0.5 cm and a solitary echogenic stone measuring 0.2 x 0.2 x 0.2 cm. US/US renal BI IMPRESSION: Nonobstructive echogenic stones in both kidneys. No caliectasis or hydronephrosis.
== END 2021-02-14 13:15 | disposition home or self-care (01) ==
LOC: HO.HMGCX 13:14
PROVIDERS: PCP Internal Medicine; Visit Provider Urology
DX: Z87.442 Personal history of urinary calculi (principal)
CPT/HCPCS: 76775

== ENCOUNTER → 2021-02-16 15:23 | Outpatient (BNVA) | payer OTHER, SELFPAY | PROVIDERS: PCP Internal Medicine; Visit Provider Urology | DX: N20.0 Calculus of kidney (principal) | CPT/HCPCS: Q3014 ==

== ENCOUNTER → 2021-04-27 09:02 | Outpatient (BNVA) | payer OTHER, SELFPAY | PROVIDERS: PCP Internal Medicine; Visit Provider Internal Medicine Endocrinology, Diabetes & Metabolism | DX: E27.49 Other adrenocortical insufficiency (principal); K91.2 Postsurgical malabsorption, not elsewhere classified | CPT/HCPCS: 99212 ==

== ENCOUNTER 2021-04-27 10:34 | Outpatient (REF) | payer OTHER, SELFPAY ==
[2021-04-29 02:56] LABS: Follicle Stimulating Hormone 93.3 mIU/mL; Lutenizing Hormone 38.7 mIU/mL
[2021-05-01 17:11] LABS: IGF-1 (Somatomedin C) 135 ng/mL (53-331); IGF-1 Z Score (Female) -0.1 SD (-2.0 - +2.0)
== END 2021-04-27 10:35 | disposition home or self-care (01) ==
LOC: HO.10HDL 10:34
PROVIDERS: Visit Provider Internal Medicine Endocrinology, Diabetes & Metabolism
DX: E27.49 Other adrenocortical insufficiency (principal); K91.2 Postsurgical malabsorption, not elsewhere classified
CPT/HCPCS: 36415; 83001; 83002; 84305

== ENCOUNTER → 2021-04-28 10:31 | Outpatient (BNVA) | payer OTHER, SELFPAY | PROVIDERS: PCP Internal Medicine; Referring Provider Internal Medicine; Visit Provider Physician Assistant Surgical | DX: E66.9 Obesity, unspecified (principal); K59.00 Constipation, unspecified; Z68.36 Body mass index [BMI] 36.0-36.9, adult | CPT/HCPCS: 99212 ==

== ENCOUNTER 2021-05-19 13:52 | Outpatient (REF) | payer OTHER, SELFPAY ==
[2021-05-19 15:32] LABS: MANUAL DIFF FLAG NO
[2021-05-19 15:48] LABS: Basophils Percent Auto 0.6 % (0-2); Eosinophils Percent Auto 0.3 % (0-4); Hemoglobin 10.3 g/dl (12.0-16.0); Imm Gran Abs Auto 0.03 X10*3/uL (0.00-0.03); Imm Gran Pct Auto 0.5 % (0.0-0.4); Lymphocytes Absolute Auto 2.5 X10*3/uL (1.2-4.9); Lymphocytes Percent Auto 39.4 % (20-40); Mean Corpuscular HGB Conc 31.2 g/dl (31.0-35.0); Mean Corpuscular Hemoglobin 26.5 pg (27.0-33.0); Mean Corpuscular Volume 85.1 fL (80.0-98.0); Mean Platelet Volume 10.2 fL (9.4-12.3); Monocytes Absolute Auto 0.7 X10*3/uL (0.1-1.2); Monocytes Percent Auto 11.4 % (2-11); Neutrophils Absolute Auto 3.1 x10*3/uL (2.0-8.3); Neutrophils Percent Auto 47.8 % (45-73); Platelet Count 290 X10*3/uL (160-400); Red Blood Count 3.88 X10*6/uL (4.20-5.50); Red Cell Distribution Width 17.4 % (11.0-16.0); White Blood Count 6.4 X10*3/uL (4.8-10.8)
[2021-05-19 17:04] LABS: TSH reflex Free T4 2.12 uIU/mL (0.32-4.0)
== END 2021-05-19 13:53 | disposition home or self-care (01) ==
LOC: HO.LAB 13:52
PROVIDERS: Physician Assistant; PCP Internal Medicine; Referring Provider Internal Medicine; Visit Provider Nurse Practitioner
DX: K59.04 Chronic idiopathic constipation (principal); K64.9 Unspecified hemorrhoids; R10.9 Unspecified abdominal pain; Z79.891 Long term (current) use of opiate analgesic; Z98.84 Bariatric surgery status
CPT/HCPCS: 36415; 84443; 85025; 99212

== ENCOUNTER 2021-06-02 14:09 | Outpatient (REF) | payer OTHER, SELFPAY ==
--- NOTE | ~2021-06-02 | MR_ITS ---
EXAMINATION: MR BRAIN WITHOUT AND WITH CONTRAST CLINICAL INFORMATION: Right adrenal cortical insufficiency. Tiredness. COMPARISON: None. TECHNIQUE: Multiplanar, multisequential imaging was obtained without and with intravenous administration of contrast. Intravenous contrast: Gadavist 5 mL. FINDINGS: Although there is heterogeneous enhancement of the anterior pituitary lobe, no discrete focus lesion is otherwise seen within the pituitary gland. The infundibulum is midline. The cavernous sinuses opacify symmetrically. The internal carotid artery flow voids are maintained. No suprasellar soft tissue abnormality is seen. No diffusion abnormalities are identified to suggest an acute infarct. The ventricles are normal in size. No mass effect or midline shift is seen. Nonspecific mild scattered white matter signal changes are present, also visible within the sebastián to a lesser degree. There is an incidental 1 cm pineal cyst as well. There are significant degenerative changes of the left temporomandibular joint with synovial enhancement and an associated joint effusion. There are moderate degenerative changes of the right TMJ as well. No extra-axial fluid collections are noted. The brainstem and cerebellum are normal. On postcontrast imaging, there is no abnormal parenchymal or leptomeningeal enhancement. The craniovertebral junction, marrow signal, and remaining midline structures are normal. The mastoid air cells and paranasal sinuses are well aerated. MR/MR head/brain wo/w con IMPRESSION: Mild heterogeneous enhancement of the anterior pituitary lobe without a definable discrete lesion on the static images. No dynamic imaging acquired for this examination. The possibility of an underlying small microadenoma is therefore not excluded on the basis of this study. No acute intracranial process. Nonspecific mild white matter signal changes. Moderate degenerative changes of the right TMJ and severe degenerative changes of the left temporomandibular joint with synovial thickening and a small joint effusion.
[2021-06-02 13:54] LABS: Blood Urea Nitrogen 9 mg/dL (9-16); Estimated Glomerular Filt Rate > 60
== END 2021-06-02 14:10 | disposition home or self-care (01) ==
LOC: HO.MRI 14:09
PROVIDERS: Visit Provider Internal Medicine Endocrinology, Diabetes & Metabolism
DX: E27.49 Other adrenocortical insufficiency (principal); M81.0 Age-related osteoporosis without current pathological fracture
CPT/HCPCS: 36415; 70553; 82565; 84520; A9585

== ENCOUNTER 2021-08-09 12:45 | Outpatient (REF) | payer OTHER, SELFPAY ==
--- NOTE | ~2021-08-09 | US_ITS ---
EXAMINATION: US RETROPERITONEAL LIMITED (RENAL ONLY) CLINICAL INFORMATION: Calculus of kidney. COMPARISON: Ultrasound renal 02/14/2021 and 08/25/2020. TECHNIQUE: Real-time imaging of the kidneys. FINDINGS: RIGHT KIDNEY: 9.4 x 5.1 x 5.1 cm (SAG x AP x TRV). The kidney is normal in size, contour, and echogenicity. Renal cortical thickness is normal. No calculi or focal parenchymal lesions. No hydronephrosis. LEFT KIDNEY: 9.6 x 6.1 x 5.4 cm (SAG x AP x TRV). The kidney is normal in size, contour, and echogenicity. Renal cortical thickness is normal. No focal parenchymal lesions or hydronephrosis. At the upper pole, a 4 mm nonobstructing calculus is seen, with twinkle artifact. At the lower pole, a 5 mm nonobstructing calculus is seen, with twinkle artifact. US/US renal BI IMPRESSION: Nonobstructing left renal calculi are seen, as detailed. No right renal calculus is seen. No hydronephrosis is noted bilaterally..
== END 2021-08-09 12:46 | disposition home or self-care (01) ==
LOC: HO.US 12:45
PROVIDERS: Visit Provider Urology
DX: N20.0 Calculus of kidney (principal)
CPT/HCPCS: 76775

== ENCOUNTER → 2021-08-11 14:17 | Outpatient (BNVA) | payer OTHER, SELFPAY | PROVIDERS: PCP Internal Medicine; Visit Provider Internal Medicine Endocrinology, Diabetes & Metabolism | DX: E27.49 Other adrenocortical insufficiency (principal); K91.2 Postsurgical malabsorption, not elsewhere classified | CPT/HCPCS: 82947; 99212 ==

== ENCOUNTER → 2021-08-23 15:17 | Outpatient (BNVA) | payer OTHER, SELFPAY | PROVIDERS: PCP Internal Medicine; Visit Provider Urology | DX: N20.0 Calculus of kidney (principal) | CPT/HCPCS: 99212 ==

== ENCOUNTER 2021-08-29 11:54 | Outpatient (REF) | payer OTHER, SELFPAY ==
--- NOTE | ~2021-08-29 | MM_ITS ---
EXAMINATION: MM SCREENING DIGITAL BREAST TOMOSYNTHESIS, BILATERAL CLINICAL INFORMATION: Screening. Asymptomatic. No prior breast imaging. Age 41. Family history breast cancer, mother and 2 aunts. The lifetime risk of breast cancer based on the Tyrer-Cuzick Model is 27%. COMPARISON: None (current study represents initial baseline exam). TECHNIQUE: Digital breast tomosynthesis is performed in both the craniocaudal and mediolateral oblique views along with computer-aided detection (CAD). Synthesized 2D images are generated from the tomosynthesis. Additional right MLO view is provided. FINDINGS: There are scattered areas of fibroglandular density (ACR BI-RADS breast composition Category b). There are no significant masses, abnormal calcifications, or other abnormalities. The axilla and skin contours are unremarkable. MM/MM tomosynthesis screening BI IMPRESSION: No mammographic evidence of malignancy. ASSESSMENT: BI-RADS 1: Negative RECOMMENDATION: 1. Routine annual mammography screening. 2. The lifetime risk of breast cancer based on the Tyrer-Cuzick Model is 27%. Additional annual adjunct screening with breast MRI may be of benefit in women with a risk score of 20% or greater. This patient's information was entered into a reminder system with a target due date for their next mammogram.
== END 2021-08-29 11:55 | disposition home or self-care (01) ==
LOC: HO.MAMMO 11:54
PROVIDERS: Visit Provider Internal Medicine
DX: Z12.31 Encounter for screening mammogram for malignant neoplasm of breast (principal)
CPT/HCPCS: 77063; 77067

== ENCOUNTER → 2021-11-10 13:01 | Outpatient (BNVA) | payer OTHER, SELFPAY | PROVIDERS: PCP Internal Medicine; Visit Provider Internal Medicine Endocrinology, Diabetes & Metabolism | DX: E27.49 Other adrenocortical insufficiency (principal); K91.2 Postsurgical malabsorption, not elsewhere classified; Z79.899 Other long term (current) drug therapy | CPT/HCPCS: 99212 ==

== ENCOUNTER 2022-05-19 07:15 | Outpatient (REF) | payer OTHER, SELFPAY ==
[2022-05-19 08:08] LABS: Glucose Random 110 mg/dL (60-115)
== END 2022-05-19 07:16 | disposition home or self-care (01) ==
LOC: HO.LAB 07:15
PROVIDERS: PCP Nurse Practitioner Family; Visit Provider Internal Medicine Endocrinology, Diabetes & Metabolism
DX: K91.2 Postsurgical malabsorption, not elsewhere classified (principal); E16.1 Other hypoglycemia
CPT/HCPCS: 36415; 82947

== ENCOUNTER → 2022-05-23 10:53 | Outpatient (BNVA) | payer OTHER, SELFPAY | PROVIDERS: PCP Nurse Practitioner Family; Visit Provider Internal Medicine Endocrinology, Diabetes & Metabolism | DX: E27.49 Other adrenocortical insufficiency (principal); K91.2 Postsurgical malabsorption, not elsewhere classified | CPT/HCPCS: 99212 ==

== ENCOUNTER 2022-06-08 08:07 | Outpatient (REF) | payer OTHER, SELFPAY ==
--- NOTE | ~2022-06-08 | FL_ITS ---
EXAMINATION: FL SMALL BOWEL SERIES CLINICAL INFORMATION: Abdominal pain. COMPARISON: None available. TECHNIQUE: Following a instructor dramatic arts image of the abdomen, contrast was administered orally, and interval abdominal radiographs were performed to assess for contrast progression through the small bowel. Following contrast transit through the small bowel and into the colon, the patient was placed on the fluoroscopy table, and multiple spot images were obtained. FINDINGS: Real Time Analyst image of the abdomen demonstrates scattered stool in the colon without colonic or small bowel dissection. There is a right hip prosthesis. No gross bony abnormality. There are surgical morelia in left upper quadrant likely related to stomach. Surgical morelia are seen in the right upper quadrant likely cholecystectomy. Please correlate There is abnormal transit time of contrast material through the small bowel, with contrast present in the colon by on most 4 hours. Small bowel loops are of normal caliber throughout the abdomen and pelvis. The jejunal and ileal fold patterns are normal, without evidence of abnormal thickening. No fixed regions of luminal narrowing are seen to suggest stricturing. The terminal ileum demonstrates a normal appearance. Spot images of ileocecal junction reveal normal terminal ileum. Normal IC junction. FLUOROSCOPY TIME: 1.1 minutes DOSE AREA PRODUCT: 22.404 uGy-m2 (microgray-meter squared) FL/FL small bowel follow through IMPRESSION: Significant delay in the small bowel transit time. No obstructive or constrictive lesion seen.
== END 2022-06-08 08:08 | disposition home or self-care (01) ==
LOC: HO.XRAY 08:07
PROVIDERS: Visit Provider Nurse Practitioner
DX: Z13.89 Encounter for screening for other disorder (principal)
CPT/HCPCS: 74250

== ENCOUNTER → 2022-06-16 10:23 | Outpatient (BNVA) | payer OTHER, SELFPAY | PROVIDERS: PCP Nurse Practitioner Family; Visit Provider Nurse Practitioner | DX: K59.04 Chronic idiopathic constipation (principal); R10.9 Unspecified abdominal pain; K64.9 Unspecified hemorrhoids | CPT/HCPCS: 99212 ==

== ENCOUNTER 2022-06-23 07:56 | Outpatient (REF) | payer OTHER, SELFPAY ==
[2022-06-25 13:29] LABS: Cortisol 30 Minute 13.8 mcg/dL; Cortisol 60 Minute 8.6 mcg/dL; Cortisol 60 Minute Time 3 1000; Cortisol Baseline 5.1 mcg/dL
== END 2022-06-23 07:57 | disposition home or self-care (01) ==
LOC: HO.MDS 07:56
PROVIDERS: PCP Nurse Practitioner Family; Visit Provider Internal Medicine Endocrinology, Diabetes & Metabolism
DX: E27.40 Unspecified adrenocortical insufficiency (principal)
CPT/HCPCS: 36415; 82533; 96374; J0834

== ENCOUNTER 2022-09-28 10:59 | Outpatient (REF) | payer OTHER, SELFPAY ==
[2022-09-28 13:21] LABS: MANUAL DIFF FLAG NO
[2022-09-28 13:40] LABS: Basophils Percent Auto 0.6 % (0-2); Eosinophils Absolute Auto 0.1 X10*3/uL (0.0-0.4); Eosinophils Percent Auto 1.2 % (0-4); Hematocrit 32.5 % (37.0-47.0); Hemoglobin 9.2 g/dl (12.0-16.0); Imm Gran Abs Auto 0.01 X10*3/uL (0.00-0.03); Imm Gran Pct Auto 0.2 % (0.0-0.4); Lymphocytes Absolute Auto 2.7 X10*3/uL (1.2-4.9); Lymphocytes Percent Auto 41.2 % (20-40); Mean Corpuscular HGB Conc 28.3 g/dl (31.0-35.0); Mean Corpuscular Hemoglobin 22.6 pg (27.0-33.0); Mean Corpuscular Volume 79.9 fL (80.0-98.0); Mean Platelet Volume 9.8 fL (9.4-12.3); Monocytes Absolute Auto 0.8 X10*3/uL (0.1-1.2); Monocytes Percent Auto 11.6 % (2-11); Neutrophils Percent Auto 45.2 % (45-73); Platelet Count 421 X10*3/uL (160-400); Red Blood Count 4.07 X10*6/uL (4.20-5.50); White Blood Count 6.6 X10*3/uL (4.8-10.8)
[2022-09-28 13:56] LABS: Alanine Aminotransferase 22 U/L (0-31); Albumin Level 3.6 g/dL (3.5-5.0); Alkaline Phosphatase 90 U/L (39-117); Anion Gap 13 (12-20); Aspartate Amino Transferase 18 U/L (5-31); Bilirubin Total 0.3 mg/dL (0.0-1.0); Blood Urea Nitrogen 10 mg/dL (9-16); Calcium 9.2 mg/dL (8.4-10.2); Carbon Dioxide 26 mmol/L (22-29); Chloride 109 mmol/L (96-108); Estimated Glomerular Filt Rate > 60; Glucose Random 80 mg/dL (60-115); Potassium 3.2 mmol/L (3.3-5.1); Sodium 145 mmol/L (135-145); Total Protein 6.9 g/dL (6.5-8.0)
== END 2022-09-28 11:00 | disposition home or self-care (01) ==
LOC: HO.HHCL 10:59
PROVIDERS: Visit Provider Nurse Practitioner Family
DX: D50.8 Other iron deficiency anemias (principal)
CPT/HCPCS: 36415; 80053; 85025

== ENCOUNTER 2022-10-31 12:03 | Outpatient (REF) | payer OTHER, SELFPAY ==
[2022-10-31 13:37] LABS: MANUAL DIFF FLAG NO
[2022-10-31 13:53] LABS: Basophils Absolute Auto 0.1 X10*3/uL (0.0-0.2); Basophils Percent Auto 0.7 % (0-2); Eosinophils Absolute Auto 0.1 X10*3/uL (0.0-0.4); Eosinophils Percent Auto 1.5 % (0-4); Hematocrit 31.2 % (37.0-47.0); Imm Gran Abs Auto 0.01 X10*3/uL (0.00-0.03); Imm Gran Pct Auto 0.1 % (0.0-0.4); Lymphocytes Absolute Auto 2.1 X10*3/uL (1.2-4.9); Lymphocytes Percent Auto 31.3 % (20-40); Mean Corpuscular HGB Conc 28.8 g/dl (31.0-35.0); Mean Corpuscular Hemoglobin 22.2 pg (27.0-33.0); Mean Corpuscular Volume 76.8 fL (80.0-98.0); Mean Platelet Volume 9.9 fL (9.4-12.3); Monocytes Absolute Auto 0.9 X10*3/uL (0.1-1.2); Monocytes Percent Auto 13.9 % (2-11); Neutrophils Absolute Auto 3.6 x10*3/uL (2.0-8.3); Neutrophils Percent Auto 52.5 % (45-73); Platelet Count 311 X10*3/uL (160-400); Red Blood Count 4.06 X10*6/uL (4.20-5.50); Red Cell Distribution Width 19.9 % (11.0-16.0); White Blood Count 6.8 X10*3/uL (4.8-10.8)
== END 2022-10-31 12:04 | disposition home or self-care (01) ==
LOC: HO.HHCL 12:03
PROVIDERS: Visit Provider Nurse Practitioner Family
DX: D50.8 Other iron deficiency anemias (principal)
CPT/HCPCS: 36415; 85025

== ENCOUNTER → 2022-11-23 10:34 | Outpatient (BNV) | payer OTHER, SELFPAY | PROVIDERS: PCP Nurse Practitioner Family; Visit Provider Internal Medicine Medical Oncology | DX: D64.9 Anemia, unspecified (principal) | CPT/HCPCS: 99204 ==

== ENCOUNTER 2023-08-22 | Outpatient (REF) | payer OTHER, SELFPAY | END 2023-08-22 00:01 | disposition home or self-care (01) | LOC: CF | PROVIDERS: PCP Nurse Practitioner Family; Visit Provider Nurse Practitioner | DX: K59.04 Chronic idiopathic constipation (principal); K59.9 Functional intestinal disorder, unspecified; K21.9 Gastro-esophageal reflux disease without esophagitis; D12.6 Benign neoplasm of colon, unspecified | CPT/HCPCS: 99212 ==

== ENCOUNTER 2023-08-22 11:12 | Outpatient (AMB) | payer OTHER, SELFPAY ==
--- NOTE | 2023-08-22 11:12 | A.OFFVIS_ITS ---
Vital Signs 08/22/23 11:16 Height 5 ft 3 in Weight 229 lb 4.492 oz BMI 40.6 BP 139/70 Blood Pressure Location Rt brachial Position Sitting Pulse 77 Intake Visit Reasons: Follow up medications Intake Note: Patient presents to in office visit today in follow up of constipation and upper GI. CC: Patient reports that she went to [facility] back in November and was found to be anemic. She underwent EGD/colonoscopy at [facility] and was found to have bleeding from polyp. She states that she underwent colonoscopy again in April and was found to have precancerous polyps. She c/o RUQ abdominal pain, constipation, and seeing some blood in stool. 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 FL/FL small bowel follow through IMPRESSION: Significant delay in the small bowel transit time. No obstructive or constrictive lesion seen. ?Code(s): K59.9 - Functional intestinal disorder, unspecified ?Plan: She continues to have rectal bleeding. We review the follow through study and there is significant delay. Likely r/t medications and NIDDM. Will start reglan 5mg qidachs. Have to watch? for SS. Continue Trulance (she has been out of it for a while), she is unsure how long. She has a FHX of crc in her father who had a colostomy around age 63. There are no prior problems with anesthesia or sedation. She denies any respiratory problems, she has controlled CHF. 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 (2) Chronic idiopathic constipation: ?Code(s): K59.04 - Chronic idiopathic constipation ? ? ? Medications: New metoclopramide HCl (Reglan) ?? Provider aware of possible interactons and is monitoring pt. 5 mg? PO QIDACHS 120 tabs 3RF K59.04 - Chronic idiopathic constipation, K59.9 - Functional intestinal disorder, unspecified ? pantoprazole 40 mg? PO DAILY 30 tabs 6RF ? ? hydrocortisone 2.5% (Proctosol HC) 1 appl? UT BID 30 grams 6RF hemorrhoids ? ? peg 3350-electrolytes 236-22.74-6.74 -5.86 gram (Golytely) ?? until fecal effluent is clear; do not exceed a total volume of 2,000 mL 240 mL? PO Q10M 1 day 4,000 mL 0RF Z12.11 - Encounter for screening for malignant neoplasm of colon ? Refilled plecanatide (Trulance) 3 mg? PO DAILY 30 tabs 6RF K59.04 - Chronic idiopathic constipation ? simethicone ?? after meals 180 mg? PO QID 30 days 120 caps 6RF ? COLONOSCOPY performed at [facility] twice this year and toatl of 6 polyps removed. BIOPSY CORRESPONDENCE On 12/04/22 @ 12:39 Carolynn Amaya Wrote To [place],June received [facility]'s fax: inpatient from 11/24- 11/28, patient did have EGD- COLO. Will notify OR of cancelation and will scan [facility] notes into chart. On 12/04/22 @ 12:11 Carolynn Amaya Wrote To Carolynn Amaya spoke to patient via bowling ball assembler #[id number] to review prep for upcoming colonoscopy. She reports she was in the ER and then in the hospital last week, d/c on Sunday from [facility]. She reports she believes she had colonoscopy done at [facility] and was found to have precancerous cells, and she will need further workup. [facility] Medical Records called-waiting on inpt and ER notes. Carolynn Amaya completed item. TODAY'S VISIT Apparently she had a scope at [facility]. She is not moving her bowels well with Trulance. Will progress to Linzess 290mcg. Also since no a/e to reglan at 5mg tid will increase to 10g qidachs. ROV 6 weeks to eval meds. She still have rectal bleeding but improved after polypectomies. Having right sided pain that is colicky, likely bowel irritability. If this isn't resolved on the Linzess we will consider additional studies. She continues on her pantoprazole and famotidine. Return office visit in 6 weeks [facility] Medical History (Updated 08/22/23 @ 16:42 by ALEXYS Goodman) Normal esophagogastroduodenoscopy (EGD) Chronic, continuous use of opioids Chronic pain syndrome UTI (urinary tract infection) Constipation History of diabetes mellitus resolved following bariatric surgery Diabetic neuropathy Hypoglycemia after GI (gastrointestinal) surgery Secondary adrenal insufficiency Intestinal malabsorption BMI 32.0-32.9,adult Obesity Localized osteoarthritis of knees, bilateral Seropositive rheumatoid arthritis Surgical History (Updated 08/20/23 @ 18:11 by ALEXYS Goodman) H/O colonoscopy History of surgery History of hysterectomy Hx of cystoscopy S/P repair of paraesophageal hernia H/O vaginal hysterectomy History of hip replacement History of esophagogastroduodenoscopy (EGD) History of Ofelia-en-Y gastric bypass Hx laparoscopic cholecystectomy History of kidney surgery H/O removal of cyst Family History (Reviewed 06/16/22 @ 10:59 by Andie Giraldo [facility] [place]) Father Epilepsia Depression Anxiety Colon cancer Mother HTN (hypertension) DM (diabetes mellitus) Heart disease RA (rheumatoid arthritis) Sister No problems noted. Sister No problems noted. Social History (Updated 11/23/22 @ 10:45 by Xochilt Butt) Household Members: None Housing: Apartment Are you a primary daycare teacher to a significant other at home: No Do you presently have visiting nurse or other home services: No Alcohol intake: never Patient Tobacco Use Status: Never used Tobacco e-Cigarette/Vaping Use: Never Used service: No Current occupational status: disabled Review of Systems Const Denies fatigue, Denies fever(s), Denies night sweats, Denies poor appetite and Denies weight loss ENT Reports Normal hearing present, Denies dental pain, Denies dysphagia, Denies hearing loss, Denies mouth pain, Denies odynophagia, Denies throat swelling, Denies tongue swelling and Reports other (Dentition adequate) Card Reports no additional complaints Resp Reports no additional complaints GI Details: Denies abdominal pain, Denies melena, Denies bloating, Reports hematochezia, Reports constipation, Denies GI cramping, Denies dysphagia, Denies excessive flatus, Denies early satiety, Reports heartburn, Denies diarrhea, Denies nausea, Denies odynophagia, Denies vomiting and Denies hematemesis Skin/Breast Denies pruritus, Denies lesions, Denies rash and Denies jaundice Neuro Reports Normal hearing present and Denies Abnormal speech present Endo Denies fatigue Aller/Immun Denies throat swelling and Denies tongue swelling Physical Exam Vital Signs: Last Vital Signs Pulse 77 08/22/23 11:16 BP 139/70 08/22/23 11:16 BMI result Body Mass Index 40.6 Const General: cooperative, no acute distress, well developed and well groomed Nutritional Appearance: well nourished and obese Orientation/consciousness: oriented to person, oriented to place and oriented to time Limitations: language barrier HEENT Head: Yes normocephalic and Yes atraumatic Eyes General: appearance normal, both eyes and all related structures Pupils: Equal, round and reactive pupils present Neck Neck: Yes normal visual inspection and Yes no lymphadenopathy Thyroid: Thyroid normal Resp Effort & Inspection: normal respiratory effort and able to speak in complete sentences Auscultation: clear to auscultation bilaterally Cardio Rate: regular rate Rhythm: regular rhythm Heart sounds: Normal, physiologic split S2 sound present Peripheral pulses: radial pulses present and posterior tibial pulses present GI Inspection: No distended, Yes Abdominal panniculus present and Yes obesity Palpation (GI): Soft to palpation, nontender, no guarding, not rigid and No hepatosplenomegaly present Percussion: Yes normal to percussion Auscultation: normal bowel sounds Rectal Exam - Female: deferred Skin General skin exam: no rashes or lesions noted, turgor normal, skin not dry, no jaundice, No spider nevi and no striae Rashes: no rashes Nails: normal Neuro General: oriented to person, oriented to place and oriented to time Cranial nerves: Yes Equal, round and reactive pupils present and Yes Normal hearing present Speech: No Abnormal speech present Extrem General: Yes normal to inspection, No clubbing, No cyanosis and No edema Psych Appearance: grossly normal and well kempt Mental Status: mental status grossly normal Speech and movement: Normal speech and movement present Affect: normal affect Attitude: cooperative Thought process: Normal thought process present and not confabulating Thought content: Normal thought content present Insight: Limited insight present (Psych) Judgement: Limited judgement present (Psych) Assessment & Plan Assessment & Plan (1) Chronic idiopathic constipation: Code(s): K59.04 - Chronic idiopathic constipation Category: Medical (2) Small bowel motility disorder: Comment: 06/10/22 UPPER GI WITH SMALL-BOWEL FOLLOW-THROUGH FL/FL small bowel follow through IMPRESSION: Significant delay in the small bowel transit time. No obstructive or constrictive lesion seen. Code(s): K59.9 - Functional intestinal disorder, unspecified Category: Medical (3) Tubular adenoma of colon: Comment: 04/2022 @ [facility] [place] = 6 large polypd; 11/2022 SCOPE @ [facility]= 2 TA IS REPEAT IN 5 YEARS Code(s): D12.6 - Benign neoplasm of colon, unspecified Category: Medical (4) GERD (gastroesophageal reflux disease): Code(s): K21.9 - Gastro-esophageal reflux disease without esophagitis Category: Medical Plan Apparently she had a scope at [facility]. She is not moving her bowels well with Trulance. Will progress to Linzess 290mcg. Also since no a/e to reglan at 5mg tid will increase to 10g qidachs. ROV 6 weeks to eval meds. She still have rectal bleeding but improved after polypectomies. Having right sided pain that is colicky, likely bowel irritability. If this isn't resolved on the Linzess we will consider additional studies. She continues on her pantoprazole and famotidine. Return office visit in 6 weeks Medications: New metoclopramide HCl (Reglan) 10 mg PO QIDACHS 120 tabs 3RF linaclotide (Linzess) 290 mcg PO QAM 30 caps 3RF 30 days K59.04 - Chronic idiopathic constipation Refilled simethicone after meals 180 mg PO QID 120 caps 6RF 30 days pantoprazole 40 mg PO QAM 30 tabs 6RF sennosides (senna) 17.6 mg (10 mL) PO BEDTIME 236 mL 0RF plecanatide (Trulance) 3 mg PO DAILY 30 tabs 6RF K59.04 - Chronic idiopathic constipation Coding Level of Care Code Est Pt Level 3 (84526) Diagnoses Chronic idiopathic constipation K59.04 Small bowel motility disorder K59.9 Tubular adenoma of colon D12.6 GERD (gastroesophageal reflux disease) K21.9
[2023-08-22 11:16] VITALS: BP 139/70; PULSE 77; BMI 40.6
== END 2023-08-22 12:11 | disposition home or self-care (01) ==
PROVIDERS: PCP Nurse Practitioner Family; Visit Provider Nurse Practitioner
DX: K59.04 Chronic idiopathic constipation (principal); K59.9 Functional intestinal disorder, unspecified; D12.6 Benign neoplasm of colon, unspecified; K21.9 Gastro-esophageal reflux disease without esophagitis
CPT/HCPCS: 99213

== ENCOUNTER 2023-08-31 15:21 | Outpatient (REF) | payer OTHER, SELFPAY ==
[2023-08-31 16:14] LABS: MANUAL DIFF FLAG NO
[2023-08-31 16:16] LABS: Basophils Percent Auto 0.2 % (0-2); Hematocrit 37.8 % (37.0-47.0); Imm Gran Abs Auto 0.03 X10*3/uL (0.00-0.03); Imm Gran Pct Auto 0.3 % (0.0-0.4); Lymphocytes Percent Auto 8.7 % (20-40); Mean Corpuscular HGB Conc 31.7 g/dl (31.0-35.0); Mean Corpuscular Hemoglobin 26.6 pg (27.0-33.0); Mean Corpuscular Volume 83.8 fL (80.0-98.0); Mean Platelet Volume 9.8 fL (9.4-12.3); Monocytes Absolute Auto 0.6 X10*3/uL (0.1-1.2); Monocytes Percent Auto 4.9 % (2-11); Neutrophils Absolute Auto 9.8 x10*3/uL (2.0-8.3); Neutrophils Percent Auto 85.9 % (45-73); Platelet Count 286 X10*3/uL (160-400); Red Blood Count 4.51 X10*6/uL (4.20-5.50); Red Cell Distribution Width 16.5 % (11.0-16.0); White Blood Count 11.4 X10*3/uL (4.8-10.8)
[2023-08-31 16:52] LABS: Alanine Aminotransferase 37 U/L (0-31); Albumin Level 3.8 g/dL (3.5-5.0); Alkaline Phosphatase 81 U/L (39-117); Anion Gap 11 (12-20); Aspartate Amino Transferase 27 U/L (5-31); Bilirubin Total 0.4 mg/dL (0.0-1.0); Blood Urea Nitrogen 11 mg/dL (9-16); Calcium 9.1 mg/dL (8.4-10.2); Carbon Dioxide 26 mmol/L (22-29); Chloride 104 mmol/L (96-108); Cholesterol 172 mg/dL (<200); Estimated Glomerular Filt Rate > 60; Glucose Random 179 mg/dL (60-115); HDL Cholesterol 69 mg/dL (>40); LDL Cholesterol Calculated 88 mg/dL (<100); Potassium 3.5 mmol/L (3.3-5.1); Sodium 137 mmol/L (135-145); Total Protein 7.6 g/dL (6.5-8.0); Triglycerides 75 mg/dL (<150)
[2023-08-31 17:02] LABS: Vitamin D 25-OH Total 22.7 ng/mL (>30)
== END 2023-08-31 15:22 | disposition home or self-care (01) ==
LOC: HO.HHCL 15:21
PROVIDERS: Visit Provider Nurse Practitioner Family
DX: I10 Essential (primary) hypertension (principal); I50.20 Unspecified systolic (congestive) heart failure; E11.00 Type 2 diabetes mellitus with hyperosmolarity without nonketotic hyperglycemic-hyperosmolar coma (NKHHC)
CPT/HCPCS: 36415; 80053; 80061; 82306; 85025

== ENCOUNTER 2024-01-07 17:48 | Outpatient (REF) | payer OTHER, SELFPAY ==
[2024-01-11 10:25] LABS: Fentanyl, Ur NEGATIVE
[2024-01-11 10:26] LABS: Norfentanyl, Ur NEGATIVE
== END 2024-01-07 17:49 | disposition home or self-care (01) ==
LOC: HO.HHCLNP 17:48
PROVIDERS: Visit Provider Nurse Practitioner Family
DX: G89.4 Chronic pain syndrome (principal)
CPT/HCPCS: 80354

== ENCOUNTER 2024-01-17 10:33 | Outpatient (AMB) | payer OTHER, SELFPAY ==
--- NOTE | 2024-01-17 11:16 | A.OFFVIS_ITS ---
Vital Signs 01/17/24 11:17 Weight 232 lb 5.875 oz BP 128/80 Blood Pressure Location Lt brachial Position Sitting Pulse 70 Pulse Source Pulse Oximeter Intake Visit Reasons: adrenal insuff-conf Intake Note: Patient present today for adrenal insufficiency follow up visit. Grassroots Organizer Required: No Accompanied by: Self / Same As Patient Allergies No Known Allergies Allergy (Verified 01/17/24 11:22) Medication List - Last Reconciled 01/17/24 by Manny Loving MD acarbose 50 mg PO TID alcohol swabs (Alcohol Prep Pads) 1 pad topical TID allopurinol 100 mg PO DAILY 90 days blood sugar diagnostic (FreeStyle Lite Strips) TEST BLOOD SUGAR THREE TIMES DAILY bupropion HCl 100 mg PO .once a day cholecalciferol (vitamin D3) 125 mcg PO DAILY 30 days cyclobenzaprine 5 mg PO TID PRN etanercept (Enbrel SureClick) 50 mg subcut QWEEK famotidine 20 mg PO BEDTIME folic acid 1 mg PO QAM furosemide 40 mg PO DAILY gabapentin 800 mg PO DAILY hydrocortisone 5 mg PO DAILY hydroxychloroquine 200 mg PO BID lancets (TRUEplus Lancets) TEST BLOOD SUGAR THREE TIMES DAILY linaclotide (Linzess) 290 mcg PO QAM lorazepam 1 mg PO DAILY PRN methotrexate (PF) (Rasuvo (PF)) 15 mg (0.3 mL) subcut QWEEK metoclopramide HCl (Reglan) 10 mg PO QIDACHS metoprolol tartrate 25 mg PO BID oxycodone 5 mg PO Q6H PRN pantoprazole 40 mg PO QAM plecanatide (Trulance) 3 mg PO DAILY prednisone 20 mg PO DAILY pregabalin 75 mg p.o a.m.; 150 mg p.o. q.h.s. pyridoxine (vitamin B6) 100 mg PO DAILY 90 days sacubitril-valsartan 24-26 mg 1 tab PO BID sarilumab (Kevzara) 200 mg (1.14 mL) subcut Q2W sennosides (senna) 17.6 mg (10 mL) PO BEDTIME sertraline 100 mg PO DAILY simethicone 180 mg PO QID 30 days spironolactone 25 mg PO DAILY vitamin B complex (B Complex-Vitamin B12 tablet) 1 tab PO DAILY zolpidem 10 mg PO BEDTIME PRN HPI Comments Details: 43 year old female today for follow-up visit, for adrenal? insufficiency and hypoglycemia after bariatric surgery. She denies nausea, vomiting, diarrhea, abdominal pain, dizziness.? She does c/o fatigue and nerve pain She is currently taking hydrocortisone 5 mg in AM .? She is tired chronically. Wt flunctuates but no excessive wt gain or wt loss . C/O headaches and sweating . Had 2-3 episodes of hypoglycemia after eating carbs . She has secondary adrenal insufficiency.? She had labs assessed which revealed low DHEAS? and a low cortisol. This was repeated 10/24/2019 in the national opelint analyst with ACTH of <5, Cortisol <0.5 and DHEAs of <2. This confirmed secondary adrenal insufficiency ?She also has hypoglycemia after bariatric surgery.? He has been on acarbose 25 mg before each meal.? She has been tolerating the medication well and she has occasional hypoglycemia Her diabetes complications at only neuropathy.? She does have other past medical history of rheumatoid arthritis. She had Reclast by Rheumatology on February 2020.. She had a NITHYA/BSO 5 yrs ago according to pt so no menses Pituitary function tests were normal an MRI of the pituitary did not show any pituitary abnormality On Medrol 8 mg which was prescribed by her public speaking instructor. Recently. She is also taking hydrocortisone 20 mg in conjunction with the Medrol [facility] Medical History (Updated 08/22/23 @ 16:42 by ALEXYS Goodman) Normal esophagogastroduodenoscopy (EGD) Chronic, continuous use of opioids Chronic pain syndrome UTI (urinary tract infection) Constipation History of diabetes mellitus resolved following bariatric surgery Diabetic neuropathy Hypoglycemia after GI (gastrointestinal) surgery Secondary adrenal insufficiency Intestinal malabsorption BMI 32.0-32.9,adult Obesity Localized osteoarthritis of knees, bilateral Seropositive rheumatoid arthritis Surgical History H/O colonoscopy History of surgery History of hysterectomy Hx of cystoscopy S/P repair of paraesophageal hernia H/O vaginal hysterectomy History of hip replacement History of esophagogastroduodenoscopy (EGD) History of Ofelia-en-Y gastric bypass Hx laparoscopic cholecystectomy History of kidney surgery H/O removal of cyst Family History Father Epilepsia Depression Anxiety Colon cancer Mother HTN (hypertension) DM (diabetes mellitus) Heart disease RA (rheumatoid arthritis) Sister No problems noted. Sister No problems noted. Social History Household Members: None Housing: Apartment Are you a primary home care assistant to a significant other at home: No Do you presently have visiting nurse or other home services: No Alcohol intake: never Patient Tobacco Use Status: Never used Tobacco e-Cigarette/Vaping Use: Never Used service: No Current occupational status: disabled Physical Exam Vital Signs: Last Vital Signs Pulse 70 01/17/24 11:17 BP 128/80 01/17/24 11:17 Const Other: She has a cushingoid appearance Assessment & Plan Assessment & Plan (1) Secondary adrenal insufficiency: Code(s): E27.49 - Other adrenocortical insufficiency Category: Medical Plan: This is a 41 yo female with unexplained secondary adrenal insufficency possibly related to previous steroid injections? currently being replaced with hydrocortisone 5 mg QD with nonspecific sx. Stim test last year showed inadequate cortisol response Plan is to stop the hydrocortisone while she is continuing with the Medrol. I told her to alert her public speaking instructor that she was on hydrocortisone as well. I told the patient to contact me with a Medrol was being tapered so as to reinitiate the hydrocortisone at that point . We could consider retesting adrenal axis in the future when the patient is down to physiologic replacements of steroids r (2) Hypoglycemia after GI (gastrointestinal) surgery: Code(s): K91.2 - Postsurgical malabsorption, not elsewhere classified Category: Medical Plan: Seems to be controlled on acarbose 50 mg t.i.d. Would continue current regimen. I recommended she have frequent high-protein low-carbohydrate meals and also taken extend bar each day which contains cornstarch Coding Level of Care Code Est Pt Level 3 (39304) Diagnoses Secondary adrenal insufficiency E27.49 Hypoglycemia after GI (gastrointestinal) surgery K91.2
[2024-01-17 11:17] VITALS: BP 128/80; PULSE 70
== END 2024-01-17 11:51 | disposition home or self-care (01) ==
LOC: HO.ENCR 10:34
PROVIDERS: PCP Nurse Practitioner Family; Visit Provider Internal Medicine Endocrinology, Diabetes & Metabolism
DX: E27.49 Other adrenocortical insufficiency (principal); K91.2 Postsurgical malabsorption, not elsewhere classified
CPT/HCPCS: 99213

== ENCOUNTER → 2024-01-17 10:33 | Outpatient (BNVA) | payer OTHER, SELFPAY | PROVIDERS: PCP Nurse Practitioner Family; Visit Provider Internal Medicine Endocrinology, Diabetes & Metabolism | DX: E27.49 Other adrenocortical insufficiency (principal); K91.2 Postsurgical malabsorption, not elsewhere classified | CPT/HCPCS: 99212 ==

== ENCOUNTER 2024-03-21 14:27 | Outpatient (REF) | payer OTHER, SELFPAY ==
[2024-03-21 16:08] LABS: MANUAL DIFF FLAG NO
[2024-03-21 16:23] LABS: Basophils Percent Auto 0.5 % (0-2); Eosinophils Percent Auto 0.2 % (0-4); Hematocrit 39.4 % (37.0-47.0); Hemoglobin 12.3 g/dl (12.0-16.0); Imm Gran Abs Auto 0.02 X10*3/uL (0.00-0.03); Imm Gran Pct Auto 0.2 % (0.0-0.4); Lymphocytes Absolute Auto 1.3 X10*3/uL (1.2-4.9); Lymphocytes Percent Auto 15.8 % (20-40); Mean Corpuscular HGB Conc 31.2 g/dl (31.0-35.0); Mean Corpuscular Hemoglobin 27.3 pg (27.0-33.0); Mean Corpuscular Volume 87.6 fL (80.0-98.0); Mean Platelet Volume 9.2 fL (9.4-12.3); Monocytes Absolute Auto 0.4 X10*3/uL (0.1-1.2); Monocytes Percent Auto 4.5 % (2-11); Neutrophils Absolute Auto 6.6 x10*3/uL (2.0-8.3); Neutrophils Percent Auto 78.8 % (45-73); Platelet Count 294 X10*3/uL (160-400); Red Cell Distribution Width 15.5 % (11.0-16.0); White Blood Count 8.4 X10*3/uL (4.8-10.8)
[2024-03-21 17:14] LABS: Alanine Aminotransferase 32 U/L (0-31); Albumin Level 3.8 g/dL (3.5-5.0); Alkaline Phosphatase 80 U/L (39-117); Anion Gap 11 (12-20); Aspartate Amino Transferase 32 U/L (5-31); Bilirubin Total 0.3 mg/dL (0.0-1.0); Blood Urea Nitrogen 5 mg/dL (9-16); Calcium 8.6 mg/dL (8.4-10.2); Carbon Dioxide 23 mmol/L (22-29); Chloride 110 mmol/L (96-108); Estimated Glomerular Filt Rate > 60; Glucose Random 122 mg/dL (60-115); Potassium 3.6 mmol/L (3.3-5.1); Sodium 140 mmol/L (135-145); Total Protein 7.7 g/dL (6.5-8.0)
== END 2024-03-21 14:28 | disposition home or self-care (01) ==
LOC: HO.HHCL 14:27
PROVIDERS: Visit Provider Nurse Practitioner Family
DX: G89.4 Chronic pain syndrome (principal); E27.40 Unspecified adrenocortical insufficiency; M05.7A Rheumatoid arthritis with rheumatoid factor of other specified site without organ or systems involvement; R06.2 Wheezing
CPT/HCPCS: 36415; 80053; 85025

== ENCOUNTER 2024-06-06 13:26 | Emergency (ER) | payer OTHER, SELFPAY ==
--- NOTE | ~2024-06-06 | XR_ITS ---
EXAMINATION: XR KNEE 1-2 VIEWS LEFT HISTORY: pain COMPARISON: There are no prior studies available for comparison. FINDINGS: AP and lateral views of the left knee are submitted. Osseous mineralization is normal. There is no fracture or dislocation. There is moderate tricompartmental osteoarthritis with joint space narrowing and osteophyte formation. There is a trace joint effusion. XR/XR knee LT 2V IMPRESSION: Moderate tricompartmental osteoarthritis. Electronically signed by: Manny Eid MD 06/06/2024 02:31 PM EDT
--- NOTE | 2024-06-06 14:04 | ED_ITS ---
HPI - Extremity Injury (Lower) General Chief Complaint: Extremity Problem Stated Complaint: L knee pain Time Seen by Provider: 06/06/24 17:03 Source: patient, RN notes reviewed and old records reviewed Mode of arrival: ambulatory History of Present Illness ED Provider: Lauren Yanez PA-C HPI Narrative: 43-year-old female with a past medical history chronic pain syndrome, diabetes, obesity, rheumatoid arthritis, HTN, presenting to the ED complaining of persistent/ worsening left knee pain s/p fluid drained from knee 3 weeks ago at Orthopedic arthritis office in [place]. Admits currently takes oxycodone an d was recently prescribed meloxicam which she has been taking without relief. Denies injury, trauma, fall, numbness, tingling, pedal edema Related Data Home Medications ?Medication ?Instructions ?Recorded ?Confirmed bupropion HCl 100 mg tablet 100 mg PO .once a day 01/13/20 11/23/22 cyclobenzaprine 5 mg tablet 5 mg PO TID PRN Pain 01/13/20 11/23/22 metoprolol tartrate 25 mg tablet 25 mg PO BID 01/13/20 11/23/22 sertraline 100 mg tablet 100 mg PO DAILY 01/13/20 11/23/22 spironolactone 25 mg tablet 25 mg PO DAILY 01/13/20 11/23/22 vitamin B complex (B 1 tab PO DAILY 01/13/20 11/23/22 Complex-Vitamin B12 tablet) zolpidem 10 mg tablet 10 mg PO BEDTIME PRN Insomnia 04/02/20 11/23/22 sacubitril 24 mg-valsartan 26 mg 1 tab PO BID 06/04/20 11/23/22 tablet oxycodone 5 mg tablet 5 mg PO Q6H PRN Insomnia 10/25/20 11/23/22 furosemide 40 mg tablet 40 mg PO DAILY Edema 04/28/21 11/23/22 alcohol swabs (Alcohol Prep Pads) 1 pad topical TID 08/23/21 11/23/22 famotidine 20 mg tablet 20 mg PO BEDTIME 08/23/21 11/23/22 etanercept 50 mg/mL (1 mL) 50 mg subcut QWEEK 06/16/22 11/23/22 subcutaneous pen injector (Enbrel SureMehdiick) prednisone 20 mg tablet 20 mg PO DAILY 06/16/22 11/23/22 gabapentin 800 mg tablet 800 mg PO DAILY 08/22/23 lorazepam 1 mg tablet 1 mg PO DAILY PRN 08/22/23 Previous Rx's ?Medication ?Instructions ?Recorded folic acid 1 mg tablet 1 mg PO QAM #30 tabs 04/27/20 cholecalciferol (vitamin D3) 125 125 mcg PO DAILY 30 days #30 caps 09/13/20 mcg (5,000 unit) capsule hydroxychloroquine 200 mg tablet 200 mg PO BID #180 tabs 09/16/20 sarilumab 200 mg/1.14 mL 200 mg (1.14 mL) subcut Q2W #2.28 12/10/20 subcutaneous pen injector (Kevzara) mL methotrexate (PF) 15 mg/0.3 mL 15 mg (0.3 mL) subcut QWEEK #1.2 mL 01/11/21 subcutaneous auto-injector (Rasuvo (PF)) pregabalin 75 mg capsule 75 mg PO .COMPLEX #90 caps 06/13/21 allopurinol 100 mg tablet 100 mg PO DAILY 90 days #90 tabs 08/23/21 pyridoxine (vitamin B6) 100 mg 100 mg PO DAILY 90 days #90 tabs 08/23/21 tablet hydrocortisone 5 mg tablet 5 mg PO DAILY #90 ea 06/27/22 acarbose 50 mg tablet 50 mg PO TID #90 tabs 03/12/23 sennosides 8.8 mg/5 mL oral syrup 17.6 mg (10 mL) PO BEDTIME #236 mL 08/22/23 (senna) simethicone 180 mg capsule 180 mg PO QID 30 days #120 caps 08/22/23 linaclotide 290 mcg capsule 290 mcg PO QAM #30 caps 12/10/23 (Linzess) lancets 33 gauge (TRUEplus Lancets) #100 ea 01/10/24 metoclopramide HCl 10 mg tablet 10 mg PO QID #120 tabs 02/04/24 plecanatide 3 mg tablet (Trulance) 3 mg PO DAILY #30 tabs 03/03/24 blood sugar diagnostic (FreeStyle #100 strips 04/03/24 Lite Strips) pantoprazole 40 mg tablet,delayed 40 mg PO QAM #30 tabs 04/28/24 release diclofenac sodium 1 % topical gel 4 g topical QID #100 grams 06/06/24 (Arthritis Pain (diclofenac)) Allergies Allergy/AdvReac Type Severity Reaction Status Date / Time No Known Allergies Allergy Verified 06/06/24 14:05 Review of Systems Review of Systems: Yes all other systems are reviewed and are negative Constitutional: Constitutional: Reports as per [facility] Past Medical History Attestation statement: The following information was validated with the patient. Source: old records reviewed Medical History Normal esophagogastroduodenoscopy (EGD) Chronic, continuous use of opioids Chronic pain syndrome UTI (urinary tract infection) Constipation History of diabetes mellitus resolved following bariatric surgery Diabetic neuropathy Hypoglycemia after GI (gastrointestinal) surgery Secondary adrenal insufficiency Intestinal malabsorption BMI 32.0-32.9,adult Obesity Localized osteoarthritis of knees, bilateral Seropositive rheumatoid arthritis Surgical History H/O colonoscopy History of surgery History of hysterectomy Hx of cystoscopy S/P repair of paraesophageal hernia H/O vaginal hysterectomy History of hip replacement History of esophagogastroduodenoscopy (EGD) History of Ofelia-en-Y gastric bypass Hx laparoscopic cholecystectomy History of kidney surgery H/O removal of cyst Family History Family History Father Epilepsia Depression Anxiety Colon cancer Mother HTN (hypertension) DM (diabetes mellitus) Heart disease RA (rheumatoid arthritis) Sister No problems noted. Sister No problems noted. Social History Social History Household Members: None Housing: Apartment Are you a primary tire care manager to a significant other at home: No Do you presently have visiting nurse or other home services: No Alcohol intake: never Patient Tobacco Use Status: Never used Tobacco e-Cigarette/Vaping Use: Never Used service: No Current occupational status: disabled Physical Exam Vital Signs: Vital Signs: Last Vital Signs Temp 96.3 F L 06/06/24 14:05 Pulse 70 06/06/24 14:05 Resp 16 06/06/24 14:05 BP 135/76 06/06/24 14:05 Pulse Ox 99 06/06/24 14:05 O2 Del Method Room Air 06/06/24 14:05 BMI result Body Mass Index 41.5 Const: General: cooperative, healthy appearing and no acute distress Orientation/consciousness: patient oriented x3 Limitations: no limitations HEENT: Head: Yes normal to inspection and Yes atraumatic Ears: hearing grossly normal bilaterally General nose exam: Normal external nose present Face and sinus: Yes normal facial exam Eyes: General: appearance normal, both eyes and all related structures EOM: EOMs intact bilaterally Neck: Neck: Yes normal visual inspection and Yes no meningeal signs Resp: Effort & Inspection: normal respiratory effort and no respiratory distress Cardio: Rate: regular rate Skin: Rashes: no rashes Wounds: no wounds Neuro: General: patient oriented x3, tone normal and no meningeal signs Cranial nerves: Yes CN's II-XII intact bilaterally Gait exam (Neuro): Normal gait present Extrem: Other: Left knee with mild swelling. Diffusely tender to palpation. ROM intact with discomfort. Neurovascularly intact distally. No erythema or warmth. No crepitus. Ambulating with antalgic gait Course Course Course Narrative: This is a Rapid Medical Exam performed in triage by Lauren Yanez PA-C. Full HPI, ROS and PE to be performed by primary ED provider. 43 yo F w/pmhx GERD, CHF, depression, DM, HTN, presenting to the ED c/o continued/worsening left knee pain s/p drainage in Ortho office in [place] 3 weeks ago. states has been taking oxycodone and meloxicam without relief. Denies recent injury, fall PE: knee brace intact, ambulating with limping, antalgic gait, mild left knee swelling appreciated, no erythema or warmth, diffusely tender to palpation with limited ROM Plan: x-ray, pain control XR knee LT 2V IMPRESSION: Moderate tricompartmental osteoarthritis. > patient filled a 28 day supply of Oxycodone 15mg, 56 tabs, on 05/30/24 & has history of bypass surgery, will not prescribe NSAIDs. Discussed with patient should not be taking meloxicam. Results discussed with patient including worrisome signs and symptoms and strict return precautions, and when to return to the emergency department. They verbalized understanding and feel safe for discharge at this time. Medical Decision Making Medical Decision Making [facility] Narrative: 43-year-old female with a past medical history chronic pain syndrome, diabetes, obesity, rheumatoid arthritis, HTN, presenting to the ED complaining of persistent/ worsening left knee pain s/p fluid drained from knee 3 weeks ago at Orthopedic arthritis office in [place]. On exam vital signs stable, NAD, nontoxic appearing, physical exam as noted above. Concern for osteoarthritis. No evidence of septic joint / arthritis or cellulitis. Unlikely DVT. Unlikely fracture Plan: X-ray, pain control Please refer to course for remaining clinical decision making, interpretation of labs/imaging results, and discussions with consultants and/or family members. Differential Diagnosis Differential Diagnoses: The differential diagnosis associated with the presentation includes As above Independent Interpretation I performed an independent interpretation of an: Plain X-Ray Radiology Impression Discussion of test interpretation with radiology: I have reviewed the radiologist's reading. External Record Review External record reviewed: Inpatient record, Office record, Outpatient record, Prior outpatient labs, Prior outpatient radiology, Primary care record and Outside ED record Tests considered The following testing was considered but not selected: As above Prescription Management I considered prescription management with: Pain Medication Chronic Conditions Patient?s care impacted by: Diabetes, Hypertension and Other Social Determinants Patient?s care significantly limited by Social Determinants of Health including: Other Social Determinant of Health Discharge Plan Discharge Clinical Impression: Osteoarthritis Patient Disposition: Home, Self-Care Instructions: Osteoarthritis (DC) Additional Instructions: continue taking previously prescribed oxycodone In addition take Tylenol Diclofenac as a topical anti-inflammatory pain medication Please call your doctor for close follow-up If area is red, increasingly swollen, unbearable painful, you are unable to walk or you have fever return to the ED Prescriptions: New diclofenac sodium [Arthritis Pain (diclofenac)] 1 % gel 4 g topical QID Qty: 100 0RF Rx Instructions: apply to single knee, ankle, foot; for foot includes sole/toes/top of foot No Action folic acid 1 mg tablet 1 mg PO QAM Qty: 30 11RF cholecalciferol (vitamin D3) 125 mcg (5,000 unit) capsule 125 mcg PO DAILY 30 Days Qty: 30 6RF hydroxychloroquine 200 mg tablet 200 mg PO BID Qty: 180 1RF Kevzara 200 mg/1.14 mL pen injector 200 mg subcut Q2W Qty: 2.28 2RF Rasuvo (PF) 15 mg/0.3 mL auto-injector 15 mg subcut QWEEK Qty: 1.2 0RF pregabalin 75 mg capsule 75 mg PO .COMPLEX Qty: 90 3RF Rx Instructions: 75 mg p.o a.m.; 150 mg p.o. q.h.s. hydrocortisone 5 mg tablet 5 mg PO DAILY Qty: 90 6RF acarbose 50 mg tablet 50 mg PO TID Qty: 90 6RF Linzess 290 mcg capsule 290 mcg PO QAM Qty: 30 3RF (DME) lancets [TRUEplus Lancets] 33 gauge misc See Rx Instructions .ROUTE .COMPLEX Qty: 100 5RF Dose Instruction: TEST BLOOD SUGAR THREE TIMES DAILY Rx Instructions: TEST BLOOD SUGAR THREE TIMES DAILY metoclopramide HCl 10 mg tablet 10 mg PO QID Qty: 120 3RF Trulance 3 mg tablet 3 mg PO DAILY Qty: 30 6RF (DME) FreeStyle Lite Strips Strip See Rx Instructions .ROUTE .COMPLEX Qty: 100 11RF Dose Instruction: TEST BLOOD SUGAR THREE TIMES DAILY Rx Instructions: TEST BLOOD SUGAR THREE TIMES DAILY pantoprazole 40 mg tablet,delayed release (DR/EC) 40 mg PO QAM Qty: 30 6RF oxycodone 5 mg tablet 5 mg PO Q6H PRN (Reason: Insomnia) vitamin B complex [B Complex-Vitamin B12] Tablet 1 tab PO DAILY cyclobenzaprine 5 mg tablet 5 mg PO TID PRN (Reason: Pain) metoprolol tartrate 25 mg tablet 25 mg PO BID spironolactone 25 mg tablet 25 mg PO DAILY sertraline 100 mg tablet 100 mg PO DAILY bupropion HCl 100 mg tablet 100 mg PO .once a day zolpidem 10 mg tablet 10 mg PO BEDTIME PRN (Reason: Insomnia) sacubitril-valsartan 24-26 mg tablet 1 tab PO BID furosemide 40 mg tablet 40 mg PO DAILY Enbrel SureClick 50 mg/mL (1 mL) pen injector 50 mg subcut QWEEK prednisone 20 mg tablet 20 mg PO DAILY gabapentin 800 mg tablet 800 mg PO DAILY alcohol swabs [Alcohol Prep Pads] Pads, Medicated 1 pad topical TID famotidine 20 mg tablet 20 mg PO BEDTIME pyridoxine (vitamin B6) 100 mg tablet 100 mg PO DAILY 90 Days Qty: 90 3RF allopurinol 100 mg tablet 100 mg PO DAILY 90 Days Qty: 90 3RF simethicone 180 mg capsule 180 mg PO QID 30 Days Qty: 120 6RF Rx Instructions: after meals sennosides [senna] 8.8 mg/5 mL syrup 17.6 mg PO BEDTIME Qty: 236 0RF lorazepam 1 mg tablet 1 mg PO DAILY PRN Referrals: [facility] Orthopedic Surgeons [Provider Group] [facility] Pain Management [Provider Group] Joanne Chino BUTTONHOLE MACHINE OPERATOR [Primary Care Provider] - Print Language: Armenian
[2024-06-06 14:05] VITALS: BP 135/76; PULSE 70; RESP 16; TEMP 35.7; O2SAT 99; BMI 41.5
[2024-06-06 17:39] VITALS: BP 135/76; PULSE 70; RESP 16; TEMP 35.7; O2SAT 99
== END 2024-06-06 17:39 | disposition home or self-care (01) ==
PROVIDERS: Emergency Provider Emergency Medicine; PCP Nurse Practitioner Family
DX: M17.12 Unilateral primary osteoarthritis, left knee (principal); M25.562 Pain in left knee; E11.9 Type 2 diabetes mellitus without complications; I10 Essential (primary) hypertension; Z79.899 Other long term (current) drug therapy
CPT/HCPCS: 73560; 99282; 99283

== ENCOUNTER → 2024-06-06 14:08 | Outpatient (BNV) | payer OTHER, SELFPAY | PROVIDERS: PCP Nurse Practitioner Family; Visit Provider Radiology Diagnostic Radiology | DX: M17.12 Unilateral primary osteoarthritis, left knee (principal) | CPT/HCPCS: 73560 ==

== ENCOUNTER 2024-07-24 11:17 | Outpatient (AMB) | payer OTHER, SELFPAY ==
[2024-07-24 11:19] VITALS: BP 124/90; PULSE 77; O2SAT 96; BMI 40.0
--- NOTE | 2024-07-24 11:19 | MHC.OFFVIS ---
Vital Signs 07/24/24 11:19 Height 5 ft 3 in Weight 226 lb BMI 40.0 BP 124/90 H Blood Pressure Location Lt brachial Position Sitting Pulse 77 Pulse Source Pulse Oximeter Pulse Oximetry (%) 96 Oxygen Delivery Method Room Air Intake Visit Reasons: f/u adrenal insufficiency, hypoglycemia Intake Note: Patient present today for adrenal insufficiency and hypoglycemia follow up visit. Tunnel Inspector Required: No Accompanied by: Self / Same As Patient Allergies No Known Allergies Allergy (Verified 07/24/24 11:23) Medication List - Last Reconciled 07/24/24 by Manny Loving MD acarbose 50 mg PO TID alcohol swabs (Alcohol Prep Pads) 1 pad topical TID allopurinol 100 mg PO DAILY 90 days blood sugar diagnostic (FreeStyle Lite Strips) TEST BLOOD SUGAR THREE TIMES DAILY bupropion HCl 100 mg PO .once a day cholecalciferol (vitamin D3) 125 mcg PO DAILY 30 days cyclobenzaprine 5 mg PO TID PRN diclofenac sodium 1% (Arthritis Pain (diclofenac)) 4 grams topical QID etanercept (Enbrel SureClick) 50 mg subcut QWEEK famotidine 20 mg PO BEDTIME folic acid 1 mg PO QAM furosemide 40 mg PO DAILY gabapentin 800 mg PO DAILY hydrocortisone 5 mg PO DAILY hydroxychloroquine 200 mg PO BID lancets (TRUEplus Lancets) USE DIRECTED TO TEST BLOOD SUGAR THREE TIMES DAILY linaclotide (Linzess) 290 mcg PO QAM lorazepam 1 mg PO DAILY PRN methotrexate (PF) (Rasuvo (PF)) 15 mg (0.3 mL) subcut QWEEK metoclopramide HCl 10 mg PO QID metoprolol tartrate 25 mg PO BID oxycodone 5 mg PO Q6H PRN pantoprazole 40 mg PO QAM plecanatide (Trulance) 3 mg PO DAILY prednisone 20 mg PO DAILY pregabalin 75 mg p.o a.m.; 150 mg p.o. q.h.s. pyridoxine (vitamin B6) 100 mg PO DAILY 90 days sacubitril-valsartan 24-26 mg 1 tab PO BID sarilumab (Kevzara) 200 mg (1.14 mL) subcut Q2W sennosides (senna) 17.6 mg (10 mL) PO BEDTIME sertraline 100 mg PO DAILY simethicone 180 mg PO QID 30 days spironolactone 25 mg PO DAILY vitamin B complex (B Complex-Vitamin B12 tablet) 1 tab PO DAILY zolpidem 10 mg PO BEDTIME PRN HPI Comments Details: 43 year old female today for follow-up visit, for adrenal? insufficiency and hypoglycemia after bariatric surgery. She denies nausea, vomiting, diarrhea, abdominal pain, dizziness.? She does c/o fatigue and nerve pain She is currently taking hydrocortisone 5 mg in AM .? She is tired chronically. Wt flunctuates but no excessive wt gain or wt loss . C/O headaches and sweating . Had 2-3 episodes of hypoglycemia after eating carbs . She has secondary adrenal insufficiency.? She had labs assessed which revealed low DHEAS? and a low cortisol. This was repeated 10/24/2019 in the interactive media marketing director with ACTH of <5, Cortisol <0.5 and DHEAs of <2. This confirmed secondary adrenal insufficiency ?She also has hypoglycemia after bariatric surgery.? He has been on acarbose 25 mg before each meal.? She has been tolerating the medication well and she has occasional hypoglycemia Her diabetes complications at only neuropathy.? She does have other past medical history of rheumatoid arthritis. She had Reclast by Rheumatology on February 2020.. She had a NITHYA/BSO 5 yrs ago according to pt so no menses Pituitary function tests were normal an MRI of the pituitary did not show any pituitary abnormality . She is also taking hydrocortisone 5 mg as well as prednisone 20 mg The patient is a 44-year-old female presenting with management of steroid therapy. She is on a regimen of 5 mg hydrocortisone, which was reconsidered to prevent interaction effects with another unspecified medication. Prednisone, introduced by a new tire fabric impregnating range tender at a dosage of 20 mg, was intended to be utilized until inflammatory markers subsided. In anticipation of a switch back to hydrocortisone, it was evident that prednisone should be temporarily ceased due to potential adverse interactions if both therapies were continued simultaneously. [facility] Medical History Normal esophagogastroduodenoscopy (EGD) Chronic, continuous use of opioids Chronic pain syndrome UTI (urinary tract infection) Constipation History of diabetes mellitus resolved following bariatric surgery Diabetic neuropathy Hypoglycemia after GI (gastrointestinal) surgery Secondary adrenal insufficiency Intestinal malabsorption BMI 32.0-32.9,adult Obesity Localized osteoarthritis of knees, bilateral Seropositive rheumatoid arthritis Surgical History H/O colonoscopy History of surgery History of hysterectomy Hx of cystoscopy S/P repair of paraesophageal hernia H/O vaginal hysterectomy History of hip replacement History of esophagogastroduodenoscopy (EGD) History of Ofelia-en-Y gastric bypass Hx laparoscopic cholecystectomy History of kidney surgery H/O removal of cyst Family History Father Epilepsia Depression Anxiety Colon cancer Mother HTN (hypertension) DM (diabetes mellitus) Heart disease RA (rheumatoid arthritis) Sister No problems noted. Sister No problems noted. Social History Household Members: None Housing: Apartment Are you a primary healthcare science specialist to a significant other at home: No Do you presently have visiting nurse or other home services: No Alcohol intake: never Patient Tobacco Use Status: Never used Tobacco e-Cigarette/Vaping Use: Never Used service: No Current occupational status: disabled Physical Exam Const Other: Cushingoid appearance Assessment & Plan Assessment & Plan (1) Secondary adrenal insufficiency: Code(s): E27.49 - Other adrenocortical insufficiency Category: Medical Plan: This is a 41 yo female with unexplained secondary adrenal insufficency possibly related to previous steroid injections? currently being replaced with hydrocortisone 5 mg QD with nonspecific sx. Stim test last year showed inadequate cortisol response. She is currently taking hydrocortisone 5 mg a day as well as 20 mg of prednisone prescribed by her tire fabric impregnating range tender Plan is to stop the hydrocortisone until prednisone course is completed then resume the hydrocortisone. Patient was told to schedule follow-up visit when she is back on the maintenance dose of hydrocortisone for reassessment of the adrenal axis 1. Hydrocortisone therapy management The current strategy involves pausing hydrocortisone therapy until prednisone is ceased. The patient will revert to hydrocortisone post-prednisone to manage endocrine stability. 2. Prednisone therapy management Continued under tire fabric impregnating range tender guidance for inflammatory control, expecting discontinuation post-resolution of symptomatic inflammation, followed by possible follow-up reassessment. The patient had an opportunity to ask questions regarding treatment plan. The patient expressed understanding and agreement with the above treatment plan. Patient was informed and verbally consented to the use of an ambient scribe for clinic note documentation during this visit. Coding Level of Care Code Est Pt Level 3 (12698) Diagnoses Secondary adrenal insufficiency E27.49
--- OUTSIDE RECORDS SUMMARY | 2024-07-24 12:48 | XMS_ITS | Encounter Summary ---
Author Organization [employer] Address [address] [place] [address] Care Team Providers Care Associate School Psychologist Name Role Phone Ryanne Dao MANAGER INVENTORY Primary Care Provider [phone] Joanne Chino NP Primary Care Provider [phone] Encounter Details Date Type Department Care Team (Late st Contact Info) Description 02/04/2022 Abstract [facility] [address] [place] [id number] ProviderBrigido MD Social History Tobacco Use Types Packs/Day Years Used Date Smoking Tobacco: Never Assessed Comments Unknown Sex and Gender Information Value Date Recorded Sex Assigned at Female 01/16/2022 10:29 AM EDT Legal Sex Female 10:29 AM EDT Gender Identity Female 01/16/2022 10:29 AM EDT Sexual Orientation Lesbian or Flores 01/16/2022 10 :29 AM EDT documented as of this encounter Plan of Treatment Upcoming Encounters Date Type Department Care Team (Late st Contact Info) Description 07/29/2024 10:00 AM EDT Office Visit [facility] [address] [place] [id number] Elva Osorio 09/02/2024 1:30 PM EDT Office Visit [facility] [address] [place] [phone] Joanne Chino NP [address] [place] [address] 09/08/2024 1:00 PM EDT Clinical Support [facility] [address] [place] [id number] Franca Murillo RN documented as of this encounter Visit Diagnoses Not on filedocumented in this encounter Care Teams Associate School Psychologist Relationship Specialty Start Date End Date Ryanne Dao FNP [address] [place] [address] PCP - General Family Medicine 02/02/22 08/30/23 Joanne Chino NP [address] [place] [address] PCP - General Family Medicine 08/31/23 documented as of this encounter
--- OUTSIDE RECORDS SUMMARY | 2024-07-24 12:48 | XMS_ITS | Encounter Summary ---
Author Organization [employer] Address 75 [facility] [place]t [place] [address] Care Team Providers Care Fisher Seal Name Role Phone Joanne Chino MARY Primary Care Provider [phone] Encounter Details Date Type Department Care Team (Latest Contact Info) Description 07/22/2024 Travel Social History Tobacco Use Types Packs/Day Years Used Date Smoking Tobacco: Never Passive Smoke Exposure: Never Smokeless Tobacco: Never Alcohol Use Standard Drinks/Week Comments Never 0 (1 standard drink = 0.6 oz pur e alcohol) Alcohol Answer Date Recorded Frequency of Alcohol Consumption Not on file 11/06/2023 Average Number of Drinks Not on file 024 Frequency of Binge Drinking Not on file 10/18 Score 0 11/06/2023 Depression Answer Date Recorded Patient Health Questionnaire-9 Score 0 08/31/2023 Patient Health Questionnaire-9 Score 0 08/31/2023 Last PHQ-9: Questionnaire Data Not on file 0 08/31/2023 Housing Stability Answer Date Recorded What is your housing situation today? I have chasity damian 08/31/[address] you li ve. Do you have problems with any of the following? None of the above 08/31/2023 Food Insecurity Answer Date Recorded Within the past 12 months, y ou worried that your food would run out before you got money to buy more: Never True 08/31/2023 Within the past 12 months,th e food you bought just didn't last and you didn't have enough money to get more: Never True Transportation Answer Date Recorded In the past 12 months, has l ack of transportation kept you from medical appts, meetings, work or from getting things needed for daily living? No 01/08/2023 Utilities Answer Date Recorded In the past 12 months, has t he electric, gas, oil or water company threatened to shut off services in your home? Yes 11/06/2023 Depression Answer Date Recorded Patient Health Questionnaire-2 Score 0 08/31/2023 Internet Access Answer Date Recorded Internet Access Q1 Yes 11/19/2023 Internet Access Q2 Not on file 11/19/2023 Comments Unknown Sex and Gender Information Value [...] Description 07/29/2024 10:00 AM EDT Office Visit [facility] ADULT DENTAL [address] [place] [address] Elva Osorio 09/02/2024 1:30 PM EDT Office Visit [facility] MEDICINE [address] [place] [address] Joanne Chino NP [address] [place] [address] 09/08/2024 1:00 PM EDT Clinical Support [facility] MEDICINE [address] [place] [address] Franca Murillo RN documented as of this encounter Visit Diagnoses Not on filedocumented in this encounter Additional Health Concerns Assessment Noted Time PHQ-9 Depression Total Score: 0 08/31/19 24 2:53 PM EDT documented as of this encounter Care Teams Fisher Seal Relationship Specialty Start Date End Date Joanne Chino NP [address] [place] [address] PCP - General Family Medicine 08/31/23 documented as of this encounter
--- OUTSIDE RECORDS SUMMARY | 2024-07-24 12:48 | XMS_ITS | Encounter Summary ---
Author Organization [employer] Address 75 [facility] 7t [place] [address] Care Team Providers Care Manager Math Name Role Phone Joanne Chino NP Primary Care Provider [phone] Reason for Visit * Reason Comments Med Refill Encounter Details Date Type Department Care Team ([facility] st Contact Info) Description 05/02/2024 Refill [facility] MEDICINE [address] [place], [place] [phone] Joanne Chino NP [address] [place], [place] [phone] Chronic pain syndrome Social History Tobacco Use Types Packs/Day Years [...] Description 07/29/2024 10:00 AM EDT Office Visit [facility] ADULT DENTAL [address] [place] [address] Elva Osorio 09/02/2024 1:30 PM EDT Office Visit [facility] MEDICINE [address] [place] [address] Joanne Chino NP [address] [place] [address] 09/08/2024 1:00 PM EDT Clinical Support [facility] MEDICINE [address] [place] [address] Franca Murillo, ALBERTO documented as of this encounter Visit Diagnoses Diagnosis Chronic pain syndrome documented in this encounter Additional Health Concerns Assessment Noted Time PHQ-9 Depression Total Score: 0 08/31/19 2:53 PM EDT documented as of this encounter Care Teams Manager Math Relationship Specialty Start Date End Date Joanne Chino NP [address] [place] [address] PCP - General Family Medicine 08/31/23 documented as of this encounter
--- OUTSIDE RECORDS SUMMARY | 2024-07-24 12:48 | XMS_ITS | Encounter Summary ---
Author Organization [employer] Address 75 [facility] 7t [place] [address] Care Team Providers Care Quality Control Specialist Name Role Phone Joanne Chino NP Primary Care Provider [phone] Reason for Visit * Reason Comments Med Refill Encounter Details Date Type Department Care Team ([facility] st Contact Info) Description 07/24/2024 Refill [facility] MEDICINE [address] [place], [place] [phone] Joanne Chino NP [address] [place], [place] [phone] Chronic pain syndrome Social History Tobacco Use [...] Description 07/29/2024 10:00 AM EDT Office Visit [facility] ADULT DENTAL [address] [place] [address] Elva Osorio 09/02/2024 1:30 PM EDT Office Visit [facility] MEDICINE [address] [place] [address] Joanne Chino NP [address] [place] [address] 09/08/2024 1:00 PM EDT Clinical Support [facility] MEDICINE [address] [place] [address] Franca Murillo, ALBERTO documented as of this encounter Visit Diagnoses Diagnosis Chronic pain syndrome documented in this encounter Additional Health Concerns Assessment Noted Time PHQ-9 Depression Total Score: 0 08/31/19 2:53 PM EDT documented as of this encounter Care Teams Quality Control Specialist Relationship Specialty Start Date End Date Joanne Chino NP [address] [place] [address] PCP - General Family Medicine 08/31/23 documented as of this encounter
--- OUTSIDE RECORDS SUMMARY | 2024-07-24 12:48 | XMS_ITS | Encounter Summary ---
Author Organization [employer] Address 75 [facility] 7t [place] [address] Care Team Providers Care Dental Assisting Instructor Name Role Phone Joanne Chino NP Primary Care Provider [phone] Reason for Visit * Reason Comments Med Refill Encounter Details Date Type Department Care Team (Late st Contact Info) Description 11/14/2023 Refill [facility] MEDICINE [address] [place], [place] [phone] Joanne Chino NP [address] [place], [place] [phone] Rheumatoid arthritis involving multiple sites, unspecified whether rheumatoid factor present (CMS/HCC); Chronic pain syndrome Social History Tobacco Use [...] Recorded Patient Health Questionnaire-2 Score 0 08/31/2023 Comments Unknown Sex and Gender Information Value [...] Description 07/29/2024 10:00 AM EDT Office Visit [facility] ADULT DENTAL [address] [place] [address] Elva Osorio 09/02/2024 1:30 PM EDT Office Visit [facility] MEDICINE [address] [place] [address] Joanne Chino NP [address] [place] [address] 09/08/2024 1:00 PM EDT Clinical Support [facility] MEDICINE [address] [place] [address] Franca Murillo RN documented as of this encounter Visit Diagnoses Diagnosis Rheumatoid arthritis involving multiple sites, unspecified whether rheumatoid factor present ([facility]) Chronic pain syndrome documented in this encounter Additional Health Concerns Assessment Noted Time PHQ-9 Depression Total Score: 0 08/31/19 24 2:53 PM EDT documented as of this encounter Care Teams Dental Assisting Instructor Relationship Specialty Start Date End Date Joanne Chino NP [address] [place] [address] PCP - General Family Medicine 08/31/23 documented as of this encounter
--- OUTSIDE RECORDS SUMMARY | 2024-07-24 12:48 | XMS_ITS | Encounter Summary ---
Author Organization [employer] Address 75 [facility] 7t [place] [address] Care Team Providers Care Science Intern Name Role Phone Ryanne DaoP Primary Care Provider [phone] Joanne Chino NP Primary Care Provider [phone] Reason for Visit * Reason Onset Date Comments Question 08/10/2023 Encounter Details Date Type Department Care Team ([facility] st Contact Info) Description 08/10/2023 Telephone [facility] MEDICINE [address] [place], [place] [phone] Ryanne Dao FNP [address] [place] [address] Question Social History Tobacco Use Types Packs/Day Years Used Date Smoking Tobacco: Never Passive Smoke Exposure: Never Smokeless Tobacco: Never Alcohol Use Standard Drinks/Week Comments Not Currently 0 (1 standard drink = 0.6 oz pur e alcohol) Depression Answer Date Recorded Patient Health Questionnaire-9 Score 24 05/18/2023 Patient Health Questionnaire-9 Score 24 05/18/2023 Last PHQ-9: Questionnaire Data Not on file 0 05/18/2023 Housing Stability Answer Date Recorded What is your housing situation today? I have chasity damian 05/18/[address] you li ve. Do you have problems with any of the following? Mold;Lead [place] or Pipes 05/18/2023 Food Insecurity Answer Date Recorded Within the past 12 months, y ou worried that your food would run out before you got money to buy more: Often true 05/18/2023 Within the past 12 months,th e food you bought just didn't last and you didn't have enough money to get more: Often true 03/2023 Transportation Answer Date Recorded In the past 12 months, has l ack of transportation kept you from medical appts, meetings, work or from getting things needed for daily living? No 01/08/2023 Utilities Answer Date Recorded In the past 12 months, has t he electric, gas, oil or water company threatened to shut off services in your home? No 01/08/2023 Depression Answer Date Recorded Patient Health Questionnaire-2 Score 6 05/18/2023 Comments Unknown Sex and Gender Information Value Date Recorded Sex Assigned at Female 01/16/2022 10:29 AM EDT Legal Sex Female 10:29 AM EDT Gender Identity Female 01/16/2022 10:29 AM EDT Sexual Orientation Lesbian or Flores 01/16/2022 10 :29 AM EDT documented as of this encounter Miscellaneous Notes * Telephone Encounter - Elver Merino - 08/28/2023 1:27 PM EDT [facility] from [place] requesting a call back in regards to the message below please call [phone] * Telephone Encounter - Lizette Kelley RN - 08/10/2023 3:19 PM EDT Please review and advise for below request. * Telephone Encounter - Elver Merino - 08/10/2023 2:43 PM EDT Tc from [place] from [facility] requesting Providers thought on if the patient is capable of having a motor scooter documented in this encounter Plan of Treatment Upcoming Encounters Date Type Department Care Team (Late st Contact Info) Description 07/29/2024 10:00 AM EDT Office Visit [facility] ADULT DENTAL [address] [place] [address] Elva Osorio 09/02/2024 1:30 PM EDT Office Visit [facility] MEDICINE [address] [place] [address] Joanne Chino NP [address] [place] [address] 09/08/2024 1:00 PM EDT Clinical Support [facility] MEDICINE [address] [place] [address] Franca Murillo, RN documented as of this encounter Visit Diagnoses Not on filedocumented in this encounter Additional Health Concerns Assessment Noted Time PHQ-9 Depression Total Score: 24 024 2:10 PM EST documented as of this encounter Care Teams Science Intern Relationship Specialty Start Date End Date Ryanne Dao FNP [address] [place] [address] PCP - General Family Medicine 02/02/22 08/30/23 Joanne Chino NP [address] [place] [address] PCP - General Family Medicine 08/31/23 documented as of this encounter
--- OUTSIDE RECORDS SUMMARY | 2024-07-24 12:48 | XMS_ITS | Encounter Summary ---
Author Organization [employer] Address 75 [facility] 7t [place] [address] Care Team Providers Care Airport Shuttle Driver Name Role Phone Joanne Chino NP Primary Care Provider [phone] Reason for Visit * Reason Onset Date Comments Durable Medical Equipment 07/21/2024 Encounter Details Date Type Department Care Team (Late st Contact Info) Description 07/21/2024 Telephone [facility] MEDICINE [address] [place], [place] [phone] Joanne Chino NP [address] [place] [address] Durable Medical Equipment Social History Tobacco Use Types Packs/Day Years [...] encounter Miscellaneous Notes * Telephone Encounter - Mya Cruz - 07/21/2024 11:02 AM EDT Chart notes faxed to [facility] [employer] as requested. documented in this encounter Plan of Treatment Upcoming Encounters Date Type Department Care Team (Late st Contact Info) Description 07/29/2024 10:00 AM EDT Office Visit [facility] ADULT DENTAL [address] [place] [address] Elva Osorio 09/02/2024 1:30 PM EDT Office Visit [facility] [address] [place] [address] Joanne Chino NP [address] [place] [address] 09/08/2024 1:00 PM EDT Clinical Support [address] [address] Franca Murillo RN documented as of this encounter Visit Diagnoses Not on filedocumented in this encounter Additional Health Concerns Assessment Noted Time PHQ-9 Depression Total Score: 0 08/31/19 24 2:53 PM EDT documented as of this encounter Care Teams Airport Shuttle Driver Relationship Specialty Start Date End Date Joanne Chino NP [address] [place] [address] PCP - General Family Medicine 08/31/23 documented as of this encounter
--- OUTSIDE RECORDS SUMMARY | 2024-07-24 12:48 | XMS_ITS | Encounter Summary ---
Author Organization [facility] Address [address] [place] [address] Care Team Providers Care Keller Machine Operator Name Role Phone Joanne Chino Primary Care Provider [phone] Reason for Visit * Reason Onset Date Comments PAC Urgent Appt Request 07/15/2024 Encounter Details Date Type Department Care Team (Late st Contact Info) Description 07/15/2024 Telephone [facility] Rhe[facility]ology Clinic [address] [place], [place] [phone] Rn Telephone Triage: Chela Gabriel Telephone Intake, Staff PAC Urgent Appt Request Social History Tobacco Use Types Packs/Day Years Used Date Smoking Tobacco: Never Passive Smoke Exposure: Never Smokeless Tobacco: Never Alcohol Use Standard Drinks/Week Comments Never 0 (1 standard drink = 0.6 oz pur e alcohol) Comments Unknown Sex and Gender Information Value Date Recorded Sex Assigned at Female 04/03/2024 11:30 AM EST Legal Sex Female 11:28 AM EST Gender Identity Female 04/15/2024 7:52 PM EST Sexual Orientation Other 04/15/2024 7: 52 PM EST documented as of this encounter Miscellaneous Notes * Telephone Encounter - Bette Duffy - 07/15/2024 10:51 AM EDT Pt's Primary Care Provider called requesting that the pt be seen sooner than the scheduled appt in August because the Pt's arthritis appears to be uncontrolled on her current regime. Unable to make changes to current scheduled appt through the dt because nothing is available sooner. Please reach out to the pt to schedule a sooner appt #[phone] documented in this encounter Plan of Treatment Upcoming Encounters Date Type Department Care Team (Late st Contact Info) Description 10/10/2024 2:00 PM EDT Follow-Up [facility] Rhe[facility] [address] [place] [address] Rn Telephone Triage: Teresa Charles PA [address] [place] [address] documented as of this encounter Visit Diagnoses Not on filedocumented in this encounter Care Teams Keller Machine Operator Relationship Specialty Start Date End Date Joanne Chino [address] [place] [address] PCP - General Family Medicine 04/03/24 documented as of this encounter
--- OUTSIDE RECORDS SUMMARY | 2024-07-24 12:48 | XMS_ITS | Encounter Summary ---
Author Organization [employer] Address 75 [facility] 7t [place] [address] Care Team Providers Care Fireperson Name Role Phone Ryanne Dao Primary Care Provider [phone] Joanne Chino NP Primary Care Provider [phone] Reason for Visit * Reason Comments Med Change Request Encounter Details Date Type Department Care Team ([facility] st Contact Info) Description 06/07/2023 Refill [facility] MEDICINE [address] [place], [place] [phone] Ryanne Dao FNP [address] [place] [address] Rheumatoid arthritis involving multiple sites, unspecified whether [...] problems with any of the following? Mold;Lead [place] or Pipes 05/18/2023 Food Insecurity Answer Date [...] Description 07/29/2024 10:00 AM EDT Office Visit [facility] ADULT DENTAL [address] [place] [address] Elva Osorio 09/02/2024 1:30 PM EDT Office Visit [facility] MEDICINE [address] [place] [address] Joanne Chino NP [address] [place] [address] 09/08/2024 1:00 PM EDT Clinical Support [facility] MEDICINE [address] [place] [address] Franca Murillo RN documented as of this encounter Visit Diagnoses Diagnosis Rheumatoid arthritis involving multiple sites, unspecified whether rheumatoid factor present ([facility]) Chronic pain syndrome documented in this encounter Additional Health Concerns Assessment Noted Time PHQ-9 Depression Total Score: 24 024 2:10 PM EST documented as of this encounter Care Teams Fireperson Relationship Specialty Start Date End Date Ryanne Dao FNP [address] [place] [address] PCP - General Family Medicine 02/02/22 08/30/23 Joanne Chino NP [address] [place] [address] PCP - General Family Medicine 08/31/23 documented as of this encounter
--- OUTSIDE RECORDS SUMMARY | 2024-07-24 12:48 | XMS_ITS | Clinical Summary ---
Author Organization [employer] Address [address] [facility] [address] [place] [address] Care Team Providers Care Senior Occupational Therapist Name Role Phone Joanne Chino MARY Primary Care Provider [phone] Allergies Active Allergy Reactions Criticality Noted Date Comments Ceftriaxone 09/05/2022 Other reaction(s): pruritis without rash Medications cholecalciferol (Vitamin D-3) 50 MCG (1999) capsule Take 1 capsule by mouth in the morning. 04/27/19 21 Active furosemide (Lasix) 40 MG tablet Take 1.5 tablets by mouth 1 (one) time each day. Active glucose blood (FREESTYLE LITE) test strip every 12 (twelve) hours. 07/11/19 20 Active Lancets Ultra Thin misc Active Spacer/Aero-Hold ing Chambers (OptiChamber Mera) misc 1 each every 4 (four) hours if needed (asthma). 1 each 07/18/19 23 Active Nebulizers misc 1 each if needed in the morning, at noon, in the evening, and at bedtime (cough, wheezing). 1 each 07/18/19 23 Active sodium chloride (Pipestone Nasal Lyons) 0.65 % nasal sprayIndications :Acute bacterial sinusitis 1-2 sprays on each nostril every 2-3 hours as needed for nasal congestion 30 mL 1 07/26/19 23 Active buPROPion (Wellbutrin) 100 MG tablet Take 1 tablet by mouth 2 times daily. 11/04/19 23 Active folic acid (Folvite) 1 MG tablet Take 1,000 mcg by mouth in the morning. 10/04/19 23 Active hydroxychloroqui ne (Plaquenil) 200 MG tablet Take 1 tablet by mouth 2 times daily. 10/04/19 23 Active Rasuvo 15 MG/0.3ML solution auto-injector Inject 15 mg under the skin every 7 (seven) days. 10/28/19 23 Active pantoprazole (ProtoNix) 40 MG EC tablet Take 1 tablet by mouth in the morning. 11/29/19 23 Active Trulance tablet tablet Take 1 tablet by mouth in the morning. 11/04/19 23 Active Entresto 24-26 MG tablet TAKE 1 TABLET BY MOUTH TWICE DAILY IN THE MORNING AND IN THE EVENING 11/04/19 Active sertraline (Zoloft) 100 MG tablet Take 1 tablet by mouth in the morning. 11/04/19 Active zolpidem (Ambien) 10 MG tablet Take 1 tablet by mouth if needed at bedtime. 11/28/19 Active Multiple Vitamins-Mineral s (CENTRUM ADULT PO) Take 1 tablet by mouth 1 (one) time each day. OTC Active albuterol (2.5 MG/3ML) 0.083% nebulizer solution TAKE 1 AMPULE USING A NEBULIZER EVERY 6 HOURS NEEDED FOR WHEEZING OR SHORTNESS OF BREATH 90 mL 1 07/06/19 24 Active Ventolin HFA 108 (90 Base) MCG/ACT inhaler INHALE 2 PUFFS BY MOUTH EVERY 4 HOURS NEEDED FOR WHEEZING OR SHORTNESS OF BREATH 18 g 1 07/16/19 24 Active fluticasone (Flonase) 50 MCG/ACT nasal spray USE 1 SPRAY IN EACH NOSTRIL ONCE DAILY IN THE MORNING 48 g 07/30/19 24 Active Simponi 50 MG/0.5ML solution auto-injector Inject 50 mg under the skin every 30 (thirty) days. 10/30/19 24 Active Linzess 290 MCG capsule Take 1 capsule by mouth in the morning. 10/18/19 24 Active LORazepam (Ativan) 1 MG tablet Take 1 tablet by mouth if needed each day for anxiety. 10/23/19 24 Active methylPREDNISolo ne (Medrol) 8 MG tablet Take 1 tablet by mouth Once per day. 09/26/19 24 Active simvastatin (Zocor) 20 MG tablet Take 1 tablet (20 mg) by mouth at bedtime. 90 tablet 3 11/06/19 24 2024 Active naloxone (Narcan) 4 mg/0.1 mL nasal sprayIndications :Chronic pain syndrome Administer 1 spray (4 mg) into affected nostril(s) if needed for opioid reversal. 2 each 01/09/20 24 Active Witch Rose (Hemorrhoidal Hygiene) 50 % pads USE DIRECTED 12/27/19 24 Active busPIRone (Buspar) 15 MG tablet 01/11/20 24 Active Alcohol Swabs (Alcohol Prep) 70 % padsIndications: Type 2 diabetes mellitus with unspecified complications (CMS/HCC) USE DIRECTED THREE TIMES DAILY 100 each 11 03/04/20 24 Active acarbose (Precose) 50 MG tabletIndication s:Postsurgical malabsorption, not elsewhere classified TAKE 1 TABLET BY MOUTH THREE TIMES DAILY 90 tablet 04/03/19 25 Active metoprolol tartrate (Lopressor) 25 MG tabletIndication s:Benign hypertension TAKE 1 AND 1/2 TABLETS BY MOUTH TWICE DAILY IN THE MORNING AND IN THE EVENING 270 tablet 1 05/31/19 25 Active spironolactone (Aldactone) 25 MG tablet TAKE 1 TABLET BY MOUTH EVERY EVENING 90 tablet 1 05/31/19 25 Active gabapentin (Neurontin) 800 MG tabletIndication s:Chronic pain syndrome,Rheumat oid arthritis involving multiple sites with positive rheumatoid factor (CMS/HCC) TAKE 1 TABLET BY MOUTH AT BEDTIME 30 tablet 3 06/27/19 25 Active oxyCODONE (Roxicodone) 15 MG immediate release tabletIndication s:Chronic pain syndrome Take 0.5 tablets (7.5 mg) by mouth every 6 (six) hours if needed (severe pain) for up to 28 days. Do not start before June 27, 2024. 56 tablet 06/28/19 25 2024 Active gabapentin (Neurontin) 100 MG capsuleIndicatio ns:Chronic pain syndrome TAKE 2 CAPSULES BY MOUTH TWICE DAILY IN THE MORNING AND AT NOON 360 capsule 1 07/11/19 25 Active predniSONE (Deltasone) 10 MG tabletIndication s: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 (CMS/HCC) Take 2 tablets (20 mg) by mouth Once per day for 7 days, THEN 1 tablet (10 mg) Once per day for 7 days. Do not take Medrol while on this medication. May resume Medrol dosing after prednisone course.. 21 tablet 07/15/19 25 2024 Active ferrous gluconate (Fergon) 324 (38 Fe) MG tabletIndication s:Iron deficiency anemia, unspecified iron deficiency anemia type Take 1 tablet (324 mg) by mouth every other day. 15 tablet 11 07/23/19 25 2025 Active gabapentin (Neurontin) 100 MG capsuleIndicatio ns:Chronic pain syndrome Take 2 capsules (200 mg) by mouth 2 times daily. 360 capsule 1 11/06/19 24 2024 Discontinued gabapentin (Neurontin) 800 MG tabletIndication s:Chronic pain syndrome,Rheumat oid arthritis involving multiple sites with positive rheumatoid factor (CMS/HCC) TAKE 1 TABLET BY MOUTH AT BEDTIME 30 tablet 3 03/03/20 24 2024 Discontinued Ferate 240 (27 Fe) MG tablet TAKE 1 TABLET BY MOUTH EVERY MORNING 30 tablet 2 05/23/19 25 2024 Discontinued oxyCODONE (Roxicodone) 15 MG immediate release tabletIndication s:Chronic pain syndrome Take 0.5 tablets (7.5 mg) by mouth every 6 (six) hours if needed (severe pain) for up to 28 days. Do not start before May 30, 2024. 56 tablet 05/31/19 25 2024 Discontinued(R eorder (will not trigger notification to Pharmacy)) Active Problems Problem Noted Date Diagnosed Date Non-restorable tooth 03/28/2024 Dietary counseling 03/21/2024 Assessment & Plan (03/21/2024 5:46 PM EST): Reviewed importance of healthy nutrition Exercise counseling 03/21/2024 Assessment & Plan (03/21/2024 5:46 PM EST): Pt to establish movement daily Wheeze 03/21/2024 Assessment & Plan (03/21/2024 5:45 PM EST): Since covid requiring albuterol neb bid Referral for PFTS Nausea 03/21/2024 Assessment & Plan (03/21/2024 5:44 PM EST): Prn zofran prescribed during flare Elevated lipoprotein(a) 11/06/2023 Assessment & Plan (11/25/2023 3:40 PM EDT): Initiate statin Hot flashes 11/06/2023 Assessment & Plan (11/25/2023 3:43 PM EDT): Pt may benefit from estrogen replacement therapy, plans to discuss with rheum and endocrine Abdominal pain 08/02/2023 H/O gastric bypass 08/02/2023 Bilateral ovarian cysts 09/05/2022 Nonischemic cardiomyopathy 09/05/2022 Severe obesity 09/05/2022 Assessment & Plan (03/21/2024 5:44 PM EST): S/p bariatric procedure mobility severely limited Psoriasis 06/16/2022 Acute otitis media 02/04/2022 Chronic pain syndrome 02/04/2022 Assessment & Plan (03/28/2024 9:08 AM EST): Pt taking 7.5 mg oxycodone q 6 hours for baseline pain. Pt has had increased flares and may call office once monthly to request breakthrough pain rx which will be for 7.5 mg q 12 hours prn for 3 days of 7.5 mg q 4 hours prn per month. This is a temporary pain management plan until optimal management of ra flares Assessment & Plan (11/25/2023 3:43 PM EDT): Continue current regimen, importance of following sig reviewed Referral to physiatry for input in back pain management COVID-19 02/04/2022 Sore throat 02/04/2022 Hypoadrenalism 02/04/2022 Assessment & Plan (03/21/2024 5:44 PM EST): Followed by endocrine stable Rheumatoid factor positive 10/02/2019 Alopecia 08/24/2017 Chloasma 08/24/2017 Rosacea 08/24/2017 Lentigo 08/24/2017 Kidney stone 07/11/2017 Hypertension 10/28/2015 Heart failure with reduced ejection fraction 01/2016 DMII (diabetes mellitus, type 2) 10/28/2015 Assessment & Plan (11/25/2023 3:40 PM EDT): Hgb A1c at goal 6.1 % Diet controlled Rheumatoid arthritis 10/28/2015 Assessment & Plan (07/14/2024 9:50 AM EDT): -acute flare -rx'ed 2 week taper of prednisone. advised to stop medrol while on prednisone and resume after the 2 week prednisone course. Patient verbalizes understanding -ED precautions reviewed -follow-up with PCP if symptoms persist Assessment & Plan (03/21/2024 5:45 PM EST): Referral for second opinion Assessment & Plan (11/25/2023 3:40 PM EDT): In care with rheumatology, continue Mass of ovary 10/28/2015 Resolved Problems Problem Noted Date Diagnosed Date Resolved Date Nausea and vomiting 08/02/2023 03/21/19 25 Encounters Date Type Department Care Team Description 07/24/2024 Refill [facility] [address] [place] [phone] Joanne Chino NP Chronic pain syndrome 07/23/2024 Refill [facility] [address] [place] [phone] Joanne Chino NP Chronic pain syndrome 07/22/2024 3:45 PM EDT Office Visit [address] [address] Joanne Chino NP Hyperglycemia (Primary Dx); Iron deficiency anemia, unspecified iron deficiency anemia type 07/22/2024 Travel 07/21/2024 Telephone [facility] [address] [place] [phone] Joslyn Talbert MA Chart Prep 07/21/2024 Telephone [facility] [address] [place] [phone] Joanne Chino NP Durable Medical Equipment 07/15/2024 Telephone [facility] [address] [place] [phone] Joanne Chino NP 07/15/2024 Telephone [facility] [address] [place] [phone] Yolis Hansen NP 07/14/2024 9:15 AM EDT Office Visit [address] [address] Yolis Hansen NP 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 ([facility]) (Primary Dx) 07/14/2024 Travel 07/11/2024 Telephone [facility] [address] [place] [address] Joanne Chino NP Medication Question 07/08/2024 Refill [facility] [address] [place] [address] Joanne Chino NP Chronic pain syndrome 07/01/2024 Telephone [facility] [address] [place] [address] Joanne Chino NP Durable Medical Equipment (scooter) 06/26/2024 Refill [facility] [address] [place] [phone] Joanne Chino NP Chronic pain syndrome 06/25/2024 Refill [facility] [address] [place] [phone] Joanne Chino NP Chronic pain syndrome 06/25/2024 Refill [facility] [address] [place] [address] Joanne Chino NP Chronic pain syndrome; Rheumatoid arthritis involving multiple sites with positive rheumatoid factor ([facility]) 06/20/2024 Refill [facility] [address] [place] [address] Joanne Chino NP Chronic pain syndrome 06/19/2024 Telephone [facility]OMET[facility] [address] [place] [address] Puja Clark OD 06/16/2024 Patient Outreach [facility] [address] [place] [address] Joanne Chino NP Pre-visit Planning (SDOH unable to reach M) 06/13/2024 Telephone [facility] [address] [place] [address] Joslyn Talbert MA Chart Prep 05/29/2024 Refill [facility] [address] [place] [address] Joanne Chino NP Benign hypertension 05/26/2024 Refill [facility] [address] [place] [address] Joanne Chino NP Chronic pain syndrome 05/26/2024 Refill [facility] [address] [place] [address] Joanne Chino NP Chronic pain syndrome 05/22/2024 Telephone [facility] [address] [place] [address] Joanne Chino NP 05/22/2024 Refill [facility] [address] [place] [phone] Joanne Chino NP 05/20/2024 Orders Only [facility] [address] [place] [phone] Joanne Chino NP Chronic pain syndrome (Primary Dx) 05/08/2024 Telephone [facility] [address] [place] [phone] Joanne Chino NP Durable Medical Equipment 05/06/2024 Telephone [facility] [address] [place] [address] Joanne Chino NP Durable Medical Equipment 05/02/2024 Refill [facility] [address] [place] [address] Joanne Chino NP Chronic pain syndrome 05/02/2024 Refill [facility] [address] [place] [phone] Joanne Chino NP Chronic pain syndrome 05/01/2024 Telephone [facility] [address] [place] [phone] Joanne Chino NP [facility] Supply (Underpad, incont use, underwear protective procare, Wipe, pre-moist.) 05/01/2024 Refill [facility] [address] [place] [phone] Joanne Chino NP Chronic pain syndrome from Last 3 Months Immunizations Name Administration Dates Next Due Influenza Injectable Quadriv alant Preservative Free IIV4 MDCK 12/22/2022 Influenza injectable quadriv alent IIV4 with preservative 01/02/2018,01/28/2016 Influenza injectable quadriv alent preservative free 12/27/2021,01/09/2020,12/09/2018,12/20 Influenza, IIV3, injectable 07/01/2015 Moderna Covid-19 Vaccine 12+ 08/05/2020,07/09/19 21 Pneumococcal Polysaccharide PPSV23 12/18/2018, Family History Medical History Relation Name Comments Colon cancer Father Seizures Father Stroke Mother Thyroid cancer Sister Glaucoma Neg Hx Relation Name Status Comments Father Mother Sister Social History Tobacco Use Types Packs/Day Years Used Date Smoking Tobacco: Never Passive Smoke Exposure: Never Smokeless Tobacco: Never Tobacco Cessation:Counseling Given: Not Answered Alcohol Use Standard Drinks/Week Comments Never 0 [...] or Flores 01/16/2022 10 :29 AM EDT Last Filed Vital Signs Vital Sign Reading Time Taken Comments Blood Pressure 147/98 07/22/2024 4:03 PM EDT Pulse 109 07/22/2024 4:03 PM EDT Temperature 36.3 ??C (97.4 ??F) 07/22/2024 4:03 PM ED T Respiratory Rate 18 07/22/2024 4:03 PM EDT Oxygen Saturation 98% 07/22/2024 4:03 PM EDT Inhaled Oxygen Concentration - - Weight 104 kg (229 lb 6.4 oz) 07/22/2024 4:03 PM EDT Height 160 cm (5' 3 ) 07/22/2024 4:03 PM EDT Body Mass Index 40.64 07/22/2024 4:03 PM EDT Plan of Treatment Upcoming Encounters Date Type Department Care Team (Late st Contact Info) Description 07/29/2024 10:00 AM EDT Office Visit [facility] [address] [place] [phone] Elva Osorio 09/02/2024 1:30 PM EDT Office Visit [facility] [address] [place] [phone] Joanne Chino NP [address] [place] [phone] 09/08/2024 1:00 PM EDT Clinical Support [facility] [address] [place] [phone] Franca Murillo, ALBERTO Health Maintenance Due Date Last Done Comments HIV Screening 1980 Diabetes: Foot Exam 07/01/1991 Family Planning (PISQ) 1996 Hepatitis C Screening 07/01/1999 DTaP/Tdap/Td Vaccines (1 - Tdap) 2000 Hepatitis B Vaccines (1 of 3 - 19+ 3-dose series) 2000 Pap Smear 2002 Pneumococcal Vaccine: Pediatrics (0 to 5 Years) and At-Risk Patients (6 to 49) Years) (2 of 2 - PCV) 12/19/2019 12/18/2018, 2015 Cervical Cancer Screening 06/07/2021 HPV/Cotest 06/07/2021 06/07/2016 Diabetes: Urine Protein Screening 06/24/2023 06/23/2022, 09/10/2020 Mammogram 08/30/2023 08/29/2021, 08/29/2021 COVID-19 Vaccine (3 - season) 2023 08/05/2020, 07/08/2020 Influenza Vaccine (#1) 2023 , 12/27/2021, 01/09/2020, Additional history exists Dental Oral Exam 07/22/2024 01/22/2024, 02/2017, 06/15/2016 Dental Prophylaxis 07/22/2024 01/22/2024, 0 08/28/2017, 02/27/2017, Additional history exists Depression Screening 08/30/2024 08/31/2023, 08/31/19 Lipid Panel 08/30/2024 08/31/2023, 04/0 08/2022, 11/04/2021, Additional history exists Diabetes: Hemoglobin A1C 09/18/2024 025, 08/31/2023, 05/18/2023, Additional history exists Alcohol/Substance Use Screening 11/05/2024 11/06/2023 SDOH Screening 11/05/2024 11/06/2023 Dental X-Ray: Bitewings 01/22/2025 01/22/2024, 06/15 Tobacco Screening 07/22/2025 07/22/2024 Eye Exam 01/09/2026 01/10/2024, 12/18, 01/10/2024, Additional history exists Dental X-Ray: Full Mouth 01/22/2027 024, 07/27/2016, 06/15/2016 Zoster Vaccines (1 of 2) 07/01/2031 RSV Patients and Patients Aged 60 years or older (1 - 1-dose 75+ series) 2056 HIB Vaccines Aged Out No longer eligi ble based on patient's age to complete this topic HPV Vaccines Aged Out No longer eligi ble based on patient's age to complete this topic Hepatitis A Vaccines Aged Out No long er eligible based on patient's age to complete this topic IPV Vaccines Aged Out No longer eligi ble based on patient's age to complete this topic Meningococcal Vaccine Aged Out No ernst brady eligible based on patient's age to complete this topic RSV under 20 months Aged Out No longe r eligible based on patient's age to complete this topic Rotavirus Vaccines Aged Out No longer eligible based on patient's age to complete this topic Procedures Procedure Name Priority Date/Time Associated Diagnosis Comments POCT GLUCOSE Routine 07/22/2024 4:39 PM EDT Hyperglycemia XR KNEE 1-2 VIEWS LEFT Routine 06/06/2024 2:20 PM EDT POCT GLYCATED HEMOGLOBIN, TOTAL Routine 03/21/2024 1:59 PM EST Chronic pain syndrome PROPHYLAXIS - ADULT Routine 01/22/2024 1 1:00 AM EST Dental plaque Dental calculus INTRAORAL - COMPLETE SERIES OF RADIOGRAPHIC IMAGES Routine 01/22/2024 11:00 AM EST PERIODIC ORAL EVALUATION - ESTABLISHED PATIENT Routine 01/22/2024 11:00 AM EST LIPID PANEL, STANDARD Routine 08/31/2023 3:24 PM EDT Hypertension, unspecified type ALBUMIN, RANDOM URINE W/O CREATININE Routine 06/23/2022 8:17 AM EDT Type 2 diabetes mellitus with hyperosmolarity without coma, without long-term current use of insulin ([facility]) HM MAMMOGRAPHY Routine 08/29/2021 ZZZ HISTORICAL HPV MRNA E6/E7 Routine 06/07/2016 10:25 AM EDT from Last 3 Months or Most Recently Relevant to Health Maintenance Results * POCT Glucose (07/22/2024 4:39 PM EDT) Glucose Blood, POC 111 60 - 200 mg/dL QC Media Lot # [id number] Lot# Expiration Date [id number] Blood Capillary blood specimen / Unknown 07/22/2024 4:39 PM EDT us Joanne Lulú MEDICAL AUTHORIZATION SPECIALIST POINT OF CARE TEST ENTER/EDIT OR DERABLES Final Result * XR Knee 1-2 Views Left (06/06/2024 2:20 PM EDT) Anatomical Region Laterality Modality Lower Extremities, Knee Left Radiogra phic Imaging 06/06/2024 2:20 PM EDT Narrative 06/06/2024 2:34 PM EDT ? [facility] ?[address] ?[place] [address] ?XRay Report ? Signed ? Patient: Gita Bennett ?MR#: ?? [id number] ? : 1980 ?Acct:[id number] ? Age/Sex: 43 / F ?ADM Date: 06/06/24 ? Loc: HO.ED ? Attending Dr: ? Ordering Physician: Lauren Yanez ?? Date of Service: 06/06/24 ?? Procedure(s): XR knee LT 2V ?? Accession Number(s): [id number] ? cc: Joanne Chino MEDICAL AUTHORIZATION SPECIALIST; Lauren Yanez ? EXAMINATION: ??XR KNEE 1-2 VIEWS LEFT ? HISTORY: pain ? COMPARISON: There are no prior studies available for comparison. ? FINDINGS: ? AP and lateral views of the left knee are submitted. ??Osseous ?? mineralization is normal. ??There is no fracture or dislocation. ??There ?? is moderate tricompartmental osteoarthritis with joint space narrowing ?? and osteophyte formation. ??There is a trace joint effusion. ? XR/XR knee LT 2V ?? IMPRESSION: ? Moderate tricompartmental osteoarthritis. ? Electronically signed by: ??Manny Eid MD ??06/06/2024 02:31 PM EDT ?? RP ? Dictated By: ?Manny Eid MD ? Signed By: ?<Electronically signed by Manny Eid MD in OV> ?//25 1431 ? DD/ 1420 ? TD/TT: 03//25 1428 ? Picker Tender Helper: ? Procedure Note Donotuseinterpreter, Image - 06/06/[address] [address] XRay Report Signed Patient: Gita BennettMR#: [id number] : 1980Acct:[id number] Age/Sex: 43 / FADM Date: 06/06/24 Loc: HO.ED Attending Dr: Ordering Physician: Lauren Yanez Date of Service: 06/06/24 Procedure(s): XR knee LT 2V Accession Number(s): [id number] cc: Joanne Chino MEDICAL AUTHORIZATION SPECIALIST; Lauren Yanez EXAMINATION: XR KNEE 1-2 VIEWS LEFT HISTORY: pain COMPARISON: There are no prior studies available for comparison. FINDINGS: AP and lateral views of the left knee are submitted. Osseous mineralization is normal. There is no fracture or dislocation. There is moderate tricompartmental osteoarthritis with joint space narrowing and osteophyte formation. There is a trace joint effusion. XR/XR knee LT 2V IMPRESSION: Moderate tricompartmental osteoarthritis. Electronically signed by: Manny Eid MD 06/06/2024 02:31 PM EDT Dictated By: Manny Eid MD Signed By: <Electronically signed by Manny Eid MD in OV> 06/06/24 1431 DD/ 1420 TD/TT: 06/06/24 1428 Picker Tender Helper: [facility] External Provider IMG XR PROCEDURES Final Result * (ABNORMAL) POCT HGB A1C (03/21/2024 1:59 PM EST) Hemoglobin A1C 6.0 4.0 - 6.0 % QC Media Lot # [id number] Lot# Expiration Date Blood 03/21/2024 1:59 PM EST Joanne Chino NP POINT OF CARE TEST ENTER/EDIT OR DERABLES Final Result * Lipid Panel, Standard (08/31/2023 3:24 PM EDT) Triglycerides 75 <150 mg/dL [facility] Comment:Desirable Triglyceri de: less than 150 mg/dLBorderline High Triglyceride 150-199 mg/dLHigh Triglyceride: 200-499 mg/dLVery High Triglyceride: greater than or equal to 5OO mg/dL Cholesterol 172 <200 mg/dL [facility] Comment:Desirable Cholestero l: less than 200 mg/dLBorderline High Cholesterol: 200-239 mg/dLHigh Cholesterol: greater than 239 mg/dL LDL Cholesterol Calculated 88 <100 mg/dL [facility] Comment:Desirable LDL: less than 100 mg/dLNear Optimal/Above Optimal LDL: 110- 129 mg/dLBorderline High LDL: 130-159 mg/dLHigh LDL: 160-189 mg/dLVery High LDL: greater than or equal to 190 mg/dL HDL Cholesterol 69 >40 mg/dL [facility] Comment:Desirable HDL: great er than 40 mg/dL Note: This HDL assay may give artificially low results in patients with liver disease. Blood Venous blood specimen / Unknown 08/31/2023 3:24 PM EDT 08/31/2023 4:11 PM EDT us Ryanne Dao [employer] [facility] BLOOD ORDERABLES Final Resu lt [facility] [address] [place] [address] [phone] * Albumin, Random Urine W/O Creatinine (06/23/2022 8:17 AM EDT) Albumin, Urine 1.2 See Note: mg/dL [facility] Comment: Reference Range: Reference Range Not established KARI [facility] Comment: The ADA defines abnormalities in albumin excretion as follows: Albuminuria Category ? Result (mcg/mg creatinine) Normal to Mildly increased ?<30 Moderately increased ?30-299 Severely increased ?> OR = 300 The ADA recommends that at least two of three specimens collected within a 3-6 month period be abnormal before considering a patient to be within a diagnostic category. Urine Urine specimen obtained by clean catch procedure / Unknown 06/23/2022 8:17 AM EDT 06/23/2022 8:18 AM EDT Narrative [facility] - 06/23/2022 8:20 PM EDT SPLIT 06/22/2022 FROM [id number] Ryanne Dao [employer] [facility] URINE ORDERABLES Final Resu lt [facility] [address], [place] [address] [facility] [address] [place] [address] * Mammography (08/29/2021) Mammogram Performed Comment:BI RADS 1 recommende d routine annual screening Anatomical Region Laterality Modality Other Historical Provider MD HEALTH MAINTENANCE Edited Result - Final * HPV mRNA E6/E7 (06/07/2016 10:25 AM EDT) HPV mRNA E6/E7 Not Detected NOT DETECTED [facility] Comment: This test was performed using the APTIMA(R) HPV Assay ([employer] This assay detects E6/E7 viral messenger RNA (mRNA) from 14 high-risk HPV types (16,18,31,33,35,39,45,51, 52,56,58,59,66,68). For additional information please refer to: http://education.TranquilMed/faq/JFL383d2 (This link is being provided for informational/ educational purposes only.) Test Performed by Stephanie Hernandez, [facility], [address] [place] [address] Eliu Castillo M.D., Ph.D., Director of Laboratories , CLIA [id number] Please note: ??Effective 11/29/2015, HPV testing will be performed using [employer]'s APTIMA test which targets mRNA. Detecting mRNA instead of DNA, as in older methods, offers significant improvements in specificity. 06/07/2016 10:2 5 AM EDT us Marley Phelps CNM HISTORICAL/NON ORDERABLE LABS Final Result [facility] [address] from Last 3 Months or Most Recently Relevant to Health Maintenance Insurance [facility] < 65 [facility] Care Teams Senior Occupational Therapist Relationship Specialty Start Date End Date Joanne Chino NP [address] [place] [address] PCP - General Family Medicine 08/31/23
--- OUTSIDE RECORDS SUMMARY | 2024-07-24 12:48 | XMS_ITS | Encounter Summary ---
Author Organization [employer] Address 75 [facility] 7t [place] [address] Care Team Providers Care Operator Lights Name Role Phone Joanne Chino MARY Primary Care Provider [phone] Reason for Visit * Reason Comments Med Refill Encounter Details Date Type Department Care Team (Late st Contact Info) Description 10/14/2023 Refill [facility] [address] [place], [place] [phone] Ryanne Dao FNP [address] [place], [place] [phone] Chronic pain syndrome; Rheumatoid arthritis involving multiple sites with positive rheumatoid factor (CMS/HCC) Social History Tobacco Use Types Packs/Day Years [...] Description 07/29/2024 10:00 AM EDT Office Visit [facility] [address] [place] [address] Elva Osorio 09/02/2024 1:30 PM EDT Office Visit [facility] [address] [place] [address] Joanne Chino NP 230 [place] [address] 09/08/2024 1:00 PM EDT Clinical Support [facility] [address] [place] [address] Franca Murillo RN documented as of this encounter Visit Diagnoses Diagnosis Chronic pain syndrome Rheumatoid arthritis involving multiple sites with positive rheumatoid factor (CMS/HCC) documented in this encounter Additional Health Concerns Assessment Noted Time PHQ-9 Depression Total Score: 0 08/31/19 2:53 PM EDT documented as of this encounter Care Teams Operator Lights Relationship Specialty Start Date End Date Joanne Chino NP [address] [place] [address] PCP - General Family Medicine 08/31/23 documented as of this encounter
--- OUTSIDE RECORDS SUMMARY | 2024-07-24 12:48 | XMS_ITS | Encounter Summary ---
Author Organization [employer] Address 75 [facility] 7t [place] [address] Care Team Providers Care Developmental Training Counselor Name Role Phone Ryanne DaoP Primary Care Provider [phone] Joanne Chino NP Primary Care Provider [phone] Encounter Details Date Type Department Care Team (Late st Contact Info) Description 02/27/2022 Orders Only [facility] [address] [place] [address] Ryanne Dao FNP [address] [place] [address] Rheumatoid arthritis involving multiple sites, unspecified whether rheumatoid factor present (CMS/HCC); Chronic pain syndrome Social History Tobacco Use Types Packs/Day Years Used Date Smoking Tobacco: Never Smokeless Tobacco: Never Comments Unknown Sex and Gender Information Value Date Recorded Sex Assigned at Female 01/16/2022 10:29 AM EDT Legal Sex Female 10:29 AM EDT Gender Identity Female 01/16/2022 10:29 AM EDT Sexual Orientation Lesbian or Flores 01/16/2022 10 :29 AM EDT COVID-19 Exposure Response Date Recorded In the last 10 days, have yo u been in contact with someone who was confirmed or suspected to have Coronavirus/COVID-19? No / Unsure 02/21/2022 1:22 PM EST documented as of this encounter Plan of Treatment Upcoming Encounters Date Type Department Care Team (Late st Contact Info) Description 07/29/2024 10:00 AM EDT Office Visit [facility] [address] [place] [address] Elva Osorio 09/02/2024 1:30 PM EDT Office Visit [facility] [address] [place] [address] Joanne Chino NP 230 [place] [address] 09/08/2024 1:00 PM EDT Clinical Support [facility] [address] [place] [address] Franca Murillo RN documented as of this encounter Procedures Procedure Name Priority Date/Time Associated Diagnosis Comments ACTH STIMULATION, 3 SPECIMENS Routine 06/23/2022 9:00 AM EDT Rheumatoid arthritis involving multiple sites, unspecified whether rheumatoid factor present (CMS/HCC) GLUCOSE, RANDOM Routine 05/19/2022 7:22 AM EST Rheumatoid arthritis involving multiple sites, unspecified whether rheumatoid factor present ([facility]) documented in this encounter Results * (ABNORMAL) ACTH Stimulation, 3 Specimens (06/23/2022 9:00 AM EDT) Time 1 0900 [facility] Cortisol Baseline 5.1 mcg/dL [facility] Cortisol 30 Minute Time 0930 [facility] Cortisol 30 Minute 13.8(A) mcg/dL [facility] Cortisol 60 Minute Time 1000 [facility] Cortisol 60 Minute 8.6(A) mcg/dL [facility] ACTH Stim Comment See Below [facility] Comment:Normal Response: Any value > or = 20.0The work by Ronit et al (J Clin Endo Soc 5: 1-11) suggests that a cortisol response of > 14.6 mcg/dLat 30 minutes following stimulation with ACTH beemployed as criteria to establish adrenal sufficiency.THIS TEST WAS PERFORMED AT:[facility] [place] [id number] SAWYER MD Med (ACTH) Time 0901 [facility] 06/23/2022 9:00 AM EDT 06/23/2022 9:03 AM EDT [facility] External Provider LAB BLO OD ORDERABLES Final Result Performing Organization Address [facility]/ZIP Co de Phone Number [facility] [address] [place] [address] [phone] * Glucose, Random (05/19/2022 7:22 AM EST) Glucose 110 60 - 115 mg/dL [facility] 05/19/2022 7:22 AM EST 05/19/2022 7:22 AM EST [facility] External Provider LAB BLO OD ORDERABLES Final Result Performing Organization Address [facility] Co de Phone Number [facility] [address] [place] [address] [phone] documented in this encounter Visit Diagnoses Diagnosis Rheumatoid arthritis involving multiple sites, unspecified whether rheumatoid factor present ([facility]) Chronic pain syndrome documented in this encounter Care Teams Developmental Training Counselor Relationship Specialty Start Date End Date Ryanne Dao FNP [address] [place] [address] PCP - General Family Medicine 02/02/22 08/30/23 Joanne Chino NP [address] [place] [address] PCP - General Family Medicine 08/31/23 documented as of this encounter
--- OUTSIDE RECORDS SUMMARY | 2024-07-24 12:48 | XMS_ITS | Encounter Summary ---
Author Organization [employer] Address [address] [facility] [address] 7t [place] [address] Care Team Providers Care Latent Print Examiner Name Role Phone Joanne Chino NP Primary Care Provider [phone] Encounter Details Date Type Department Care Team ([facility] st Contact Info) Description 03/03/2024 Telephone [facility] 230 [place], [place] [phone] Joanne Chino NP 230 [place], [place] [phone] Social History Tobacco Use Types Packs/Day Years [...] Description 07/29/2024 10:00 AM EDT Office Visit [facility] [address] [place] [address] Elva Osorio 09/02/2024 1:30 PM EDT Office Visit [facility] [address] [place] [address] Joanne Chino NP [address] [place] [address] 09/08/2024 1:00 PM EDT Clinical Support [facility] [address] [place] [address] Franca Murillo, ALBERTO documented as of this encounter Visit Diagnoses Not on filedocumented in this encounter Additional Health Concerns Assessment Noted Time PHQ-9 Depression Total Score: 0 08/31/19 2:53 PM EDT documented as of this encounter Care Teams Latent Print Examiner Relationship Specialty Start Date End Date Joanne Chino NP 230 [place] [address] PCP - General Family Medicine 08/31/23 documented as of this encounter
--- OUTSIDE RECORDS SUMMARY | 2024-07-24 12:48 | XMS_ITS | Encounter Summary ---
Author Organization [employer] Address 75 [facility] 7t [place] [address] Care Team Providers Care Pot Liner Name Role Phone Joanne Chino NP Primary Care Provider [phone] Reason for Visit * Reason Comments Med Refill Encounter Details Date Type Department Care Team (Late st Contact Info) Description 09/17/[address] [facility] 230 [place], [place] [phone] Joanne Chino NP 230 [place], [place] [phone] Postsurgical malabsorption, not elsewhere classified Social History Tobacco Use Types Packs/Day Years [...] Description 07/29/2024 10:00 AM EDT Office Visit [facility] [address] [place] [address] Elva Osorio 09/02/2024 1:30 PM EDT Office Visit [facility] [address] [place] [address] Joanne Chino NP 230 [place] [address] 09/08/2024 1:00 PM EDT Clinical Support [facility] [address] [place] [address] Franca Murillo RN documented as of this encounter Visit Diagnoses Diagnosis Postsurgical malabsorption, not elsewhere classified documented in this encounter Additional Health Concerns Assessment Noted Time PHQ-9 Depression Total Score: 0 08/31/19 24 2:53 PM EDT documented as of this encounter Care Teams Pot Liner Relationship Specialty Start Date End Date Joanne Chino NP 230 [place] [address] PCP - General Family Medicine 08/31/23 documented as of this encounter
--- OUTSIDE RECORDS SUMMARY | 2024-07-24 12:48 | XMS_ITS | Encounter Summary ---
Author Organization [employer] Address 75 [facility] 7t [place] [address] Care Team Providers Care Lead Radiation Therapist Name Role Phone Ryanne Dao TORCH BRAZER Primary Care Provider [phone] Joanne Chino NP Primary Care Provider [phone] Reason for Visit * Reason Comments Med Refill Encounter Details Date Type Department Care Team ([facility] st Contact Info) Description 07/05/2023 Refill [facility] 230 [place], [place] [phone] Name, MD Juan Pablo 230 [place] [address] Rheumatoid arthritis involving multiple sites, unspecified whether [...] your housing situation today? I have chasity rickie 05/18/[address] you li ve. Do you have problems with any of the following? Mold;Lead [place] or Pipes 05/18/2023 Food Insecurity Answer Date [...] Visit [facility] [address] [place] [address] Elva Osorio 09/02/2024 1:30 PM EDT Office Visit [facility] [address] [place] [address] Joanne Chino NP 230 [place] [address] 09/08/2024 1:00 PM EDT Clinical Support [facility] [address] [place] [address] Fracna Murillo RN documented as of this encounter Visit Diagnoses Diagnosis Rheumatoid arthritis involving multiple sites, unspecified whether rheumatoid factor present ([facility]) Chronic pain syndrome documented in this encounter Additional Health Concerns Assessment Noted Time PHQ-9 Depression Total Score: 24 024 2:10 PM EST documented as of this encounter Care Teams Lead Radiation Therapist Relationship Specialty Start Date End Date Ryanne Dao FNP 230 [place] [address] PCP - General Family Medicine 02/02/22 08/30/23 Joanne Chino NP [address] [place] [address] PCP - General Family Medicine 08/31/23 documented as of this encounter
--- OUTSIDE RECORDS SUMMARY | 2024-07-24 12:48 | XMS_ITS | Encounter Summary ---
Author Organization [employer] Address [address] [facility] [address] 7t [place] [address] Care Team Providers Care Clerical Methods Analyst Name Role Phone Joanne Chino MARY Primary Care Provider [phone] Reason for Visit * Reason Comments Med Refill Encounter Details Date Type Department Care Team (Late st Contact Info) Description 09/02/2023 Refill [facility] 230 [place], [place] [phone] Ryanne Dao FNP 230 [place], [place] [phone] Social History Tobacco Use Types Packs/Day Years [...] Description 07/29/2024 10:00 AM EDT Office Visit [facility] [address] [place] [address] Elva Osorio 09/02/2024 1:30 PM EDT Office Visit [facility] [address] [place] [address] Joanne Chino NP 230 [place] [address] 09/08/2024 1:00 PM EDT Clinical Support [facility] [address] [place] [address] Franca Murillo RN documented as of this encounter Visit Diagnoses Not on filedocumented in this encounter Additional Health Concerns Assessment Noted Time PHQ-9 Depression Total Score: 0 08/31/19 24 2:53 PM EDT documented as of this encounter Care Teams Clerical Methods Analyst Relationship Specialty Start Date End Date Joanne Chino NP 230 [place] [address] PCP - General Family Medicine 08/31/23 documented as of this encounter
--- OUTSIDE RECORDS SUMMARY | 2024-07-24 12:48 | XMS_ITS | Encounter Summary ---
Author Organization [employer] Address 75 [facility] 7t [place] [address] Care Team Providers Care Accounts Receivable Administrator Name Role Phone Joanne Chino NP Primary Care Provider [phone] Reason for Visit * Reason Comments Med Refill Encounter Details Date Type Department Care Team (Late st Contact Info) Description 04/03/2024 Refill [facility] 230 [place], [place] [phone] Joanne Chino NP 230 [place], [place] [phone] Postsurgical malabsorption, not elsewhere classified; Chronic pain syndrome Social History Tobacco Use [...] Description 07/29/2024 10:00 AM EDT Office Visit [facility] [address] [place] [address] Elva Osorio 09/02/2024 1:30 PM EDT Office Visit [facility] [address] [place] [address] Joanne Chino NP [address] [place] [address] 09/08/2024 1:00 PM EDT Clinical Support [facility] [address] [place] [address] Franca Murillo RN documented as of this encounter Visit Diagnoses Diagnosis Postsurgical malabsorption, not elsewhere classified Chronic pain syndrome documented in this encounter Additional Health Concerns Assessment Noted Time PHQ-9 Depression Total Score: 0 08/31/19 24 2:53 PM EDT documented as of this encounter Care Teams Accounts Receivable Administrator Relationship Specialty Start Date End Date Joanne Chino NP [address] [place] [address] PCP - General Family Medicine 08/31/23 documented as of this encounter
--- OUTSIDE RECORDS SUMMARY | 2024-07-24 12:48 | XMS_ITS | Encounter Summary ---
Author Organization [employer] Address 75 [facility] 7t [place] [address] Care Team Providers Care Painter Ordnance Name Role Phone Joanne Chino NP Primary Care Provider [phone] Reason for Visit * Reason Comments Med Refill Encounter Details Date Type Department Care Team ([facility] st Contact Info) Description 06/26/2024 Refill [facility] 230 [place], [place] [phone] Joanne Chino NP 230 [place], [place] [phone] Chronic pain syndrome Social History Tobacco Use [...] Description 07/29/2024 10:00 AM EDT Office Visit [facility] [address] [place] [address] Elva Osorio 09/02/2024 1:30 PM EDT Office Visit [facility] [address] [place] [address] Joanne Chino NP [address] [place] [address] 09/08/2024 1:00 PM EDT Clinical Support [facility] [address] [place] [address] Franca Murillo, ALBERTO documented as of this encounter Visit Diagnoses Diagnosis Chronic pain syndrome documented in this encounter Additional Health Concerns Assessment Noted Time PHQ-9 Depression Total Score: 0 08/31/19 2:53 PM EDT documented as of this encounter Care Teams Painter Ordnance Relationship Specialty Start Date End Date Joanne Chino NP [address] [place] [address] PCP - General Family Medicine 08/31/23 documented as of this encounter
--- OUTSIDE RECORDS SUMMARY | 2024-07-24 12:48 | XMS_ITS | Encounter Summary ---
Author Organization [employer] Address [address] [facility] [address]t [place] [address] Care Team Providers Care Link Trainer Maintenance Man Name Role Phone CaridadRyanne davis MASTER GLAZIER Primary Care Provider [phone] Joanne Chino NP Primary Care Provider [phone] Encounter Details Date Type Department Care Team (Late st Contact Info) Description 07/05/2022 Orders Only [facility] 230 [place], [place] [phone] Corina Watters FNP Social History Tobacco Use Types Packs/Day Years Used Date Smoking Tobacco: Never Passive Smoke Exposure: Never Smokeless Tobacco: Never Alcohol Use Standard Drinks/Week Comments Not Currently 0 (1 standard drink = 0.6 oz pur e alcohol) Depression Answer Date Recorded Patient Health Questionnaire-9 Score 24 05/26/2022 Depression Answer Date Recorded Patient Health Questionnaire-2 Score 6 05/26/2022 Comments Unknown Sex and Gender Information Value [...] suspected to have Coronavirus/COVID-19? No / Unsure 06/16/2022 1:09 PM EDT documented as of this encounter Plan of Treatment Upcoming Encounters Date Type Department Care Team (Late st Contact Info) Description 07/29/2024 10:00 AM EDT Office Visit [facility] 230 [place], [place] [phone] Elva Osorio 09/02/2024 1:30 PM EDT Office Visit [address] [address] Joanne Chino NP 230 [place] [address] 09/08/2024 1:00 PM EDT Clinical Support [address] [address] Franca Murillo, ALBERTO documented as of this encounter Visit Diagnoses Not on filedocumented in this encounter Additional Health Concerns Assessment Noted Time PHQ-9 Depression Total Score: 24 023 11:33 AM EST documented as of this encounter Care Teams Link Trainer Maintenance Man Relationship Specialty Start Date End Date Ryanne Dao FNP [address] [place] [address] PCP - General Family Medicine 02/02/22 08/30/23 Joanne Chino NP [address] [place] [address] PCP - General Family Medicine 08/31/23 documented as of this encounter
--- OUTSIDE RECORDS SUMMARY | 2024-07-24 12:48 | XMS_ITS | Encounter Summary ---
Author Organization [employer] Address [address] [facility] [address] 7t [place] [address] Care Team Providers Care Pot Press Operator Name Role Phone Joanne Chino NP Primary Care Provider [phone] Encounter Details Date Type Department Care Team (Latest Contact Info) Description 07/22/2024 3:45 PM EDT Office Visit [facility] 230 [place], [place] [phone] Joanne Chino NP 230 [place], [place] [phone] Hyperglycemia (Primary Dx); Iron deficiency anemia, unspecified iron deficiency anemia type Social History Tobacco Use Types Packs/Day Years [...] AM EDT documented as of this encounter Last Filed Vital Signs Vital Sign Reading [...] Mass Index 40.64 07/22/2024 4:03 PM EDT documented in this encounter Plan of Treatment Upcoming Encounters Date Type Department Care Team (Late st Contact Info) Description 07/29/2024 10:00 AM EDT Office Visit [facility] 230 [place] [address] Elva Osorio 09/02/2024 1:30 PM EDT Office Visit [facility] [address] [place] [address] Joanne Chino NP [address] [place] [address] 09/08/2024 1:00 PM EDT Clinical Support [facility] [address] [place] [address] Franca Murillo RN Scheduled Orders Name Type Priority Associated Diagnoses Orde r Schedule CBC auto differential Lab Routine Iron deficiency anemia, unspecified iron deficiency anemia type Expected: 08/22/2024 (Approximate), Expires: 07/22/2025 documented as of this encounter Procedures Procedure Name Priority Date/Time Associated Diagnosis Comments POCT GLUCOSE Routine 07/22/2024 4:39 PM EDT Hyperglycemia documented in this encounter Results * POCT Glucose (07/22/2024 4:39 PM EDT) [facility] Glucose Blood, POC 111 60 - 200 mg/dL QC Media Lot # [id number] Lot# Expiration Date [id number] Blood Capillary blood specimen / Unknown 07/22/2024 4:39 PM EDT Joanne Chino NP POINT OF CARE TEST ENTER/EDIT OR DERABLES Final Result documented in this encounter Visit Diagnoses Diagnosis Hyperglycemia- Primary Other abnormal glucose Iron deficiency anemia, unspecified iron deficiency anemia type documented in this encounter Additional Health Concerns Assessment Noted Time PHQ-9 Depression Total Score: 0 08/31/19 24 2:53 PM EDT documented as of this encounter Care Teams Pot Press Operator Relationship Specialty Start Date End Date Joanne Chino NP [address] [place] [address] PCP - General Family Medicine 08/31/23 documented as of this encounter
--- OUTSIDE RECORDS SUMMARY | 2024-07-24 12:48 | XMS_ITS | Encounter Summary ---
Author Organization [facility] Address [address] [place] [address] Care Team Providers Care Digital Media Coordinator Name Role Phone Joanne Chino Primary Care Provider [phone] Reason for Visit * Reason Onset Date Comments Prior Authorization 07/23/2024 upadacitinib ER (RINVOQ) 15 mg tablet Encounter Details Date Type Department Care Team (Late st Contact Info) Description 07/23/2024 Telephone [facility] [address] [place], [place] [phone] Plaster Applicator: Sarai Whitlock Prior Authorization (upadacitinib ER (RINVOQ) 15 mg tablet) Social History Tobacco Use Types Packs/Day Years [...] encounter Miscellaneous Notes * Telephone Encounter - Sarai Hurt - 07/24/2024 7:59 AM EDT [place] Approved for upadacitinib ER (RINVOQ) 15 mg tablet, #30/30, through [employer] [PA # Not provided]. Effective 04/24/2024 - 07/23/2025. May fill with [facility]. Copay $0.00. * Telephone Encounter - Sarai Hurt - 07/23/2024 12:06 PM EDT Submitted PA via Cover My Meds. Awaiting insurer's determination. Will update in 24-48 Hours. documented in this encounter Plan of Treatment Upcoming Encounters Date Type Department Care Team (Late st Contact Info) Description 10/10/2024 2:00 PM EDT Follow-Up [facility] [address] [place] [address] [phone] Plaster Applicator: Teresa Charles PA [address] [place] [phone] documented as of this encounter Visit Diagnoses Not on filedocumented in this encounter Care Teams Digital Media Coordinator Relationship Specialty Start Date End Date Joanne Chino [address] [place] [address] PCP - General Family Medicine 04/03/24 documented as of this encounter
--- OUTSIDE RECORDS SUMMARY | 2024-07-24 12:48 | XMS_ITS | Data Portability ---
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 I have reviewed and agree with the Assessment and Plan as documented by the Slab Installer. We discussed the diagnostic uncertainty of home visits and the risk associated with this. In this case the patient and I felt this to be an acceptable and reasonable amount of risk given the benefit of avoiding an ED visit. The patient given the opportunity to ask questions. Advised to f/u with pcp this week- if develops CP/severe SOB/turning blue/intolerable abd or flank pain/uncontrolled n/v/d / AMS/ syncope/ hi fever unresponsive to APAP to call 911- verbalized understanding of instructions [email or web address] Not available 04/16/2023 13:17:07 07/22/2023 07/22/2023 As noted, we wer e called to see this patient regarding concerns of dysuria. Evaluation in the field was performed by my developer advocate colleague, as noted above, I provided real-time direction and supervision for this visit. The evaluation revealed 43y F with 1wk dysuria, pelvic discomfort, nausea. Exam benign. UA reveals LE and Nits. Will send for cx, but given UA and sxs + duration will start abx. Based on last urine culture, will start first gen ceph. Impression: dysuria Plan: cefadroxil Primary care, consider standard interval f/u Disposition: We discussed the diagnostic uncertainty of home visits and the risk associated with this. In this case, the patient and I felt this to be an acceptable and reasonable amount of risk given the benefit of avoiding an ED visit. We discussed the need to seek care urgently/emergent ly in the setting of any new or worsening serious symptoms, particularly fever, vomiting, worsening malaise [email or web address] Not available 07/22/2023 19:45:18 05/13/2024 05/13/2024 I provided real -time medical direction via phone for this encounter, and was available for additional phone based assistance as needed. I have reviewed and agree with the Assessment and Plan as documented by the Slab Installer. We discussed the diagnostic uncertainty of home visits and the risk associated with this. In this case the patient and I felt this to be an acceptable and reasonable amount of risk given the benefit of avoiding an ED visit. The patient given the opportunity to ask questions. Advised while she has no fever and the leg is not red we cannot rule out infection-I would not prescribe antibiotics at this point as this could be inflammatory, post cortisone injection, but it is imperative that she contact the provider today who injected her knee - she may need to have arthrocentesis performed to rule out infection. Advised this could just be inflammation. Patient is requesting prednisone advised that we do not want to prescribe prednisone unless infection is ruled out as that could spread infection. Allergies and pharmacy reviewed Advised if develops CP/severe SOB/turning blue/uncontrolled n/v/d / AMS/ syncope/ hi fever /if the leg becomes bright red or develops intolerable pain to call 911- she verbalized understanding of instructions to the medic. [email or web address] Not available 05/13/2024 15:01:23 Plan of Treatment Reminders Order Date Submit Date Provider Last Modified By Organization Details Last Modified Time Details Appointments None recorded. Lab BMP, serum or plasma [facility] [address] [place] [address], [id number] 5 08:13:51 rapid SARS CoV 2 Ag, QL IA, respiratory specimen 2023 024 [facility], [address] [place] [address], [id number] 4 15:07:02 rapid flu (A+B) [address], [id number] 4 15:07:02 rapid strep group A, throat 2023 024 [facility], [address] [place] [address], [id number] 4 15:07:02 culture, urine 2023 024 [facility] (Centralized Electronic Ordering - All Locations), Patient Can Go To The Location Of Their Choice, [id number] 4 14:06:52 urinalysis, dipstick 2023 024 [facility], [address] [place] [address], [id number] 4 09:09:07 culture, urine 2023 024 [facility] (Centralized Electronic Ordering - All Locations), Patient Can Go To The Location Of Their Choice, [id number] 4 08:53:03 urinalysis, dipstick 2023 024 [email or web address] 0 [facility], [address] [place] [address], [id number] 4 11:35:28 Referral None recorded. Procedures None recorded. Surgeries None recorded. Imaging electrocard iogram 2023 024 [facility], [address] [place] [address], [id number] 4 15:23:08 Medication Orders ketorolac 30 mg/mL injection solution 2024 025 [email or web address] 0 [facility], [address] [place] [address], [id number], 5 14:50:35 ondansetron 4 mg disintegrat ing tablet 2024 025 [email or web address] 0 [facility], [address] [place] [address], [id number], 5 14:54:42 ondansetron 4 mg disintegrat ing tablet 2024 025 [facility], [address] [place] [address], [id number], 5 16:38:39 levofloxaci n 750 mg tablet 2023 024 [facility], [address] [place] [address], [id number], 4 15:22:12 levofloxaci n 750 mg tablet 2023 024 [facility], [address] [place] [address], [id number], 4 11:26:40 ondansetron 4 mg disintegrat ing tablet 2023 024 [facility], [address] [place] [address], [id number], 4 15:22:13 Robitussin Cough-Chest Congestion DM 5 mg-100 mg/5 mL oral liquid 2023 024 [facility], [address] [place] [address], [id number], 4 11:26:40 cefadroxil 500 mg capsule 2023 024 [facility], [address] [place] [address], [id number], 4 14:32:59 Bactrim DS 800 mg-160 mg tablet 2023 024 [facility], [address] [place] [address], [id number], 4 14:00:40 Bactrim DS 800 mg-160 mg tablet 2023 024 [email or web address] 0 Not available 4 11:35:23 Pyridium 200 mg tablet 2023 024 [facility], [address] [place] [address], [id number], 4 14:00:41 Tylenol Extra Strength 500 mg tablet 2023 024 [email or web address] 0 Not available 4 11:35:24 Tylenol Extra Strength 500 mg tablet 2023 024 [facility], [address] [place] [address], [id number], 4 14:00:39 Patient TargetsNo targets recorded. Patient InstructionsNo instructions recorded. Reason for Referral None Reported. Results Created Date Observation Date Name Description Value Unit Range Abnormal Flag Note LastModifiedBy Organization Detail LastModifiedTime 04/16/1904/16/2023 URINE CULTU RE specimen description URINE Not Available [facility] (Centralized [facility] Ordering - All Locations) Patient Can Go To The Location Of Their Choice, 04/19/2023 08:53:03 04/16/1904/16/2023 URINE CULTU RE special requests NONE Not Available [facility] (Centralized [facility] Ordering - All Locations) Patient Can Go To The Location Of Their Choice, 04/19/2023 08:53:03 04/16/19 24 04/19/2023 URINE CULTU RE culture abnormal >100, 000 COL/M L ESCHE EDMOND A COLI This isola te was ident ified using Maldi -TOF syste m These AST resul ts were perfo rmed on the Vitek 2 ID and AST syste m Not Available [facility] (Centralized Electronic Ordering - All Locations) Patient Can Go To The Location Of Their Choice, 04/19/2023 08:53:03 04/16/19 24 04/19/2023 URINE CULTU RE report status FINAL 2023 Not Available [facility] (Centralized Electronic Ordering - All Locations) Patient Can Go To The Location Of Their Choice, 04/19/2023 08:53:03 04/16/19 24 04/19/2023 URINE CULTU RE organism ORGAN ISM >100, 000 COL/M L ESCHE EDMOND A COLI This isola te was ident ified using Maldi -TOF syste m These AST resul ts were perfo rmed on the Vitek 2 ID and AST syste m Not Available [facility] (Centralized Electronic Ordering - All Locations) Patient Can Go To The Location Of Their Choice, 04/19/2023 08:53:03 04/16/19 24 04/19/2023 URINE CULTU RE method METHOD MIN. INHIB. CONC. (MCG/M L) Not Available [facility] (Centralized Electronic Ordering - All Locations) Patient Can Go To The Location Of Their Choice, 04/19/2023 08:53:03 04/16/19 24 04/19/2023 URINE CULTU RE ampicillin AMPICI LLIN RESIST ANT resistant Not Available [facility] (Centralized Electronic Ordering - All Locations) Patient Can Go To The Location Of Their Choice, 04/19/2023 08:53:03 04/16/1904/19/2023 URINE CULTU RE ampicillin/s ulbactam AMPICI LLIN/S ULBACT AM INTERM EDIATE intermedi ate Not Available [facility] (Centralized Electronic Ordering - All Locations) Patient Can Go To The Location Of Their Choice, 04/19/2023 08:53:03 04/16/19 24 04/19/2023 URINE CULTU RE cefazolin CEFAZO ARRON SUSCEP TIBLE susceptib le Not Available [facility] (Centralized Electronic Ordering - All Locations) Patient Can Go To The Location Of Their Choice, 04/19/2023 08:53:03 04/16/19 24 04/19/2023 URINE CULTU RE cefepime CEFEPI ME SUSCEP TIBLE susceptib le Not Available [facility] (Centralized Electronic Ordering - All Locations) Patient Can Go To The Location Of Their Choice, 04/19/2023 08:53:03 04/16/19 24 04/19/2023 URINE CULTU RE ceftriaxone CEFTRI AXONE SUSCEP TIBLE susceptib le Not Available [facility] (Centralized Electronic Ordering - All Locations) Patient Can Go To The Location Of Their Choice, 04/19/2023 08:53:03 04/16/19 24 04/19/2023 URINE CULTU RE ciprofloxaci n CIPROF LOXACI N RESIST ANT resistant Not Available [facility] (Centralized Electronic Ordering - All Locations) Patient Can Go To The Location Of Their Choice, 04/19/2023 08:53:03 04/16/19 24 04/19/2023 URINE CULTU RE ertapenem ERTAPE NEM SUSCEP TIBLE susceptib le Not Available [facility] (Centralized Electronic Ordering - All Locations) Patient Can Go To The Location Of Their Choice, 04/19/2023 08:53:03 04/16/19 24 04/19/2023 URINE CULTU RE gentamicin GENTAM ICIN SUSCEP TIBLE susceptib le Not Available [facility] (Centralized Electronic Ordering - All Locations) Patient Can Go To The Location Of Their Choice, 04/19/2023 08:53:03 04/16/19 24 04/19/2023 URINE CULTU RE levofloxacin LEVOFL OXACIN RESIST ANT resistant Not Available [facility] (Centralized Electronic Ordering - All Locations) Patient Can Go To The Location Of Their Choice, 04/19/2023 08:53:03 04/16/19 24 04/19/2023 URINE CULTU RE nitrofuranto in NITROF URANTO IN SUSCEP TIBLE susceptib le Not Available [facility] (Centralized Electronic Ordering - All Locations) Patient Can Go To The Location Of Their Choice, 04/19/2023 08:53:03 04/16/19 24 04/19/2023 URINE CULTU RE piperacillin /tazobactam PIPERA CILLIN /TAZOB AC SUSCEP TIBLE susceptib le Not Available [facility] (Centralized Electronic Ordering - All Locations) Patient Can Go To The Location Of Their Choice, 04/19/2023 08:53:03 04/16/19 24 04/19/2023 URINE CULTU RE trimeth/sulf amethox TRIMET H/SULF AMETHO X SUSCEP TIBLE susceptib le Not Available [facility] (Centralized Electronic Ordering - All Locations) Patient Can Go To The Location Of Their Choice, 04/19/2023 08:53:03 04/16/19 24 04/16/2023 urina lysis , dipst ick Leukocytes 3+ Not Available [facility] [address] [place] [address], [phone] 04/16/2023 11:31:59 04/16/19 24 04/16/2023 urina lysis , dipst ick Nitrite positi ve Not Available Main - [facility] [address] [place] [address], [phone] 04/16/2023 11:31:59 04/16/19 24 04/16/2023 urina lysis , dipst ick Urobilinogen neg Not Available Main - [facility] [address] [place] [address], [phone] 04/16/2023 11:31:59 04/16/19 24 04/16/2023 urina lysis , dipst ick Protein trace Not Available Main - [facility] [address], [phone] 04/16/2023 11:31:59 04/16/19 24 04/16/2023 urina lysis , dipst ick pH 5 Not Available Main - [facility] [address], [phone] 04/16/2023 11:31:59 04/16/19 24 04/16/2023 urina lysis , dipst ick Blood neg Not Available Main - [facility] [address], [address] [place] [address] 04/16/2023 11:31:59 04/16/19 24 04/16/2023 urina lysis , dipst ick Specific [place] 1.015 Not Available Main - [facility] [address] [place] [address], [phone] 04/16/2023 11:31:59 04/16/19 24 04/16/2023 urina lysis , dipst ick Ketone neg Not Available Main - [facility] [address], [phone] 04/16/2023 11:31:59 04/16/19 24 04/16/2023 urina lysis , dipst ick Bilirubin neg Not Available Main - I [address], [phone] 04/16/2023 11:31:59 04/16/19 24 04/16/2023 urina lysis , dipst ick Glucose neg Not Available Main - [facility] [address], [phone] 04/16/2023 11:31:59 04/16/19 24 04/16/2023 urina lysis , dipst ick Appearance cloudy Not Available Main - [facility] [address] [place] [address], [phone] 04/16/2023 11:31:59 04/16/19 24 04/16/2023 urina lysis , dipst ick Color dark yellow Not Available Main - [facility] [address] [place] [address], [phone] 04/16/2023 11:31:59 07/22/19 24 07/26/2023 URINE CULTU RE,CO MPREH ENSIV E urine culture,comp rehensive Final report abnormal Not Available [facility] ([facility]) [address] [facility], [place], [address], 07/26/2023 12:06:12 07/22/19 24 07/26/2023 URINE CULTU RE,CO MPREH ENSIV E result 1 Escher ichia coli abnormal Cefaz carmen <=4 ug/mL Cefaz carmen with an ARMANDO <=16 predi cts susce ptibi lity to the oral agent s cefac kirby, cefdi faith, cefpo doxim e, cefpr ozil, cefur oxime , cepha lexin , and lorac arbef when used for thera py of uncom plica cisco urina ry tract infec tions due to E. coli, Klebs iella pneum oniae , and Prote us mirab ilis. Great er than 100,0 00 colon y formi ng units per mL Not Available [facility] ([facility]) [address] [facility], [place], [address], 07/26/2023 12:06:12 07/22/19 24 07/26/2023 URINE CULTU RE,CO MPREH ENSIV E antimicrobia l susceptibili ty Commen t S = Susce ptibl e; I = Inter media te; R = Resis tant P = Posit aneesh; N = Negat aneesh MICS are expre ssed in micro grams per mL Antib iotic RSLT# 1 RSLT# 2 RSLT# 3 RSLT# 4 Amoxi cilli n/Cla vulan ic Acid S Ampic illin R Cefep butch S Ceftr iaxon e S Cefur oxime S Cipro floxa morales R Ertap enem S Genta micin S Imipe nem S Levof loxac in R Merop enem S Nitro furan toin S Piper acill in/Ta zobac torres S Tetra cycli ne S Tobra mycin S Trime thopr im/Robert lfa S Not Available [facility] ([facility]) [address], [place], [address], 07/26/2023 12:06:12 01/06/2001/06/2024 rapid strep group A, throa t Strep negati ve Not Available [facility] [address] [place] [address], [phone] 01/06/2024 15:06:39 01/06/2001/06/2024 rapid flu (A+B) Flu negati ve Not Available [facility] [address] [place] [address], [address] [place] [address] 01/06/2024 15:06:32 01/06/20 24 01/06/2024 rapid SARS CoV 2 Ag, QL IA, respi rator y speci men rapid SARS CoV 2 Ag, QL IA, respiratory specimen negati ve Not Available [facility] [address] [place] [address], [address] [place] [address] 01/06/2024 15:06:27 01/06/2001/06/2024 elect alicja willgr am No observ ation record ed. [address], [phone] 01/06/2024 15:23:07 Result Notes None recorded. Procedures Surgical History None recorded. Imaging Results Imaging Date Name Status LastModified by Organization Details LastModified Time 01/06/2024 electrocardiogram completed [address], [phone] 01/06/2024 15:23:07 Procedure Notes None recorded. Medical Equipment None Reported. Allergies Allergen ID Allergen Name Allergen Category Reaction Reaction Severity Criticality Documentation Date Start Date Code Code System Note Provider Name and Address Organization Details Recorded Time 6663 ceftriaxo ne medicatio n Not available Not available Not available 01/06/2024 219 RxNorm Not Available [facility] 03:[facility]57 Medications Name Sig Start Date Stop Date Status Note LastModified by Organization Details LastModified Time medbox status USE DIRECTED active Not Available Not Available No t Available hydrocortiso ne 5 mg tablet TAKE 1 TABLET BY MOUTH EVERY MORNING active Not Available Not Available No t Available furosemide 40 mg tablet TAKE 1 TABLET BY MOUTH TWICE DAILY IN THE MORNING AND IN THE EVENING active Not Available Not Available No t Available prednisone 10 mg tablet TAKE 1 TABLET BY MOUTH EVERY DAY active Not Available Not Available No t Available doxycycline hyclate 100 mg capsule TAKE 1 CAPSULE BY MOUTH TWICE DAILY FOR 7 DAYS WITH LARGE GLASS OF WATER. Do not lie down for 30 minutes after taking active Not Available Not Available No t Available albuterol sulfate 2.5 mg/3 mL (0.083 %) solution for nebulization INHALE 1 AMPULE USING A NEBULIZER EVERY 6 HOURS NEEDED FOR WHEEZING OR SHORTNESS OF BREATH active Not Available Not Available No t Available simethicone 180 mg capsule TAKE 1 CAPSULE BY MOUTH FOUR TIMES DAILY AFTER MEALS active Not Available Not Available Not Available phenazopyrid ine 200 mg tablet TAKE 1 TABLET BY MOUTH THREE TIMES DAILY FOR 3 DAYS active Not Available Not Available N ot Available ondansetron HCl 4 mg tablet TAKE 2 TABLETS BY MOUTH EVERY 8 HOURS NEEDED FOR NAUSEA AND VOMITING FOR UP TO 7 DAYS active Not Available Not Available No t Available prednisone 20 mg tablet TAKE 1 TABLET BY MOUTH EVERY DAY active Not Available Not Available No t Available sertraline 100 mg tablet TAKE 2 TABLETS BY MOUTH ONCE DAILY IN THE MORNING active Not Available Not Available Not Available acarbose 50 mg tablet TAKE 1 TABLET BY MOUTH THREE TIMES DAILY active Not Available Not Available Not Available hydroxyzine HCl 50 mg tablet TAKE 1 TABLET BY MOUTH ONCE DAILY NEEDED FOR ANXIETY active Not Available Not Available No t Available allopurinol 100 mg tablet TAKE 1 TABLET BY MOUTH EVERY EVENING active Not Available Not Available No t Available ciprofloxaci n 500 mg tablet TAKE 1 TABLET BY MOUTH EVERY 12 HOURS FOR 7 DAYS active Not Available Not Available N ot Available sulfamethoxa zole 800 mg-trimethop rim 160 mg tablet TAKE 1 TABLET BY MOUTH TWICE DAILY active Not Available Not Available No t Available peg-electrol yte solution 420 gram oral solution MIX WITH WATER DIRECTED ON PACKAGE AND TAKE 240ml BY MOUTH EVERY 10 MINUTES DIRECTED BY MD active Not Available Not Available No t Available acetaminophe n 500 mg tablet TAKE 2 TABLETS BY MOUTH EVERY 6 HOURS NEEDED active Not Available Not Available No t Available spironolacto ne 25 mg tablet TAKE 1 TABLET BY MOUTH EVERY EVENING active Not Available Not Available No t Available oxycodone 15 mg tablet TAKE 1/2 TABLET BY MOUTH EVERY 6 HOURS NEEDED FOR SEVERE PAIN active Not Available Not Available Not Available cefadroxil 500 mg capsule TAKE 1 CAPSULE BY MOUTH TWICE DAILY FOR 5 DAYS active Not Available Not Available No t Available bupropion HCl 100 mg tablet TAKE 1 TABLET BY MOUTH TWICE DAILY active Not Available Not Available No t Available Deep Sea Nasal 0.65 % spray aerosol USE 1 TO 2 SPRAYS IN EACH NOSTRIL EVERY 2 TO 3 HOURS NEEDED FOR NASAL CONGESTION active Not Available Not Available N ot Available famotidine 20 mg tablet TAKE 1 TABLET BY MOUTH AT BEDTIME active Not Available Not Available No t Available lorazepam 0.5 mg tablet TAKE 1 TABLET BY MOUTH ONCE DAILY NEEDED FOR ANXIETY SEVERE active Not Available Not Available No t Available metocloprami de 5 mg tablet TAKE 1 TABLET BY MOUTH FOUR TIMES DAILY active Not Available Not Available Not Available gabapentin 800 mg tablet TAKE 1 TABLET BY MOUTH AT BEDTIME active Not Available Not Available No t Available methylpredni solone 8 mg tablet TAKE 1 TABLET BY MOUTH EVERY DAY active Not Available Not Available No t Available pantoprazole 40 mg tablet,delay ed release TAKE 1 TABLET BY MOUTH EVERY MORNING active Not Available Not Available No t Available simvastatin 20 mg tablet TAKE 1 TABLET BY MOUTH AT BEDTIME active Not Available Not Available No t Available buspirone 10 mg tablet TAKE 1 TABLET BY MOUTH TWICE DAILY active Not Available Not Available No t Available docusate sodium 100 mg capsule TAKE 1 CAPSULE BY MOUTH TWICE DAILY active Not Available Not Available No t Available betamethason e, augmented 0.05 % topical ointment APPLY TOPICALLY TWICE DAILY FOR 14 DAYS active Not Available Not Available Not Available omeprazole 20 mg capsule,aki yed release TAKE 1 CAPSULE BY MOUTH EVERY MORNING active Not Available Not Available No t Available magnesium citrate oral solution DRINK WHOLE BOTTLE BY MOUTH ONCE DIRECTED active Not Available Not Available Not Available folic acid 1 mg tablet TAKE 1 TABLET BY MOUTH EVERY MORNING active Not Available Not Available No t Available bisacodyl 5 mg tablet,delay ed release TAKE 2 TABLETS BY MOUTH ONCE DIRECTED BY GI active Not Available Not Available No t Available pyridoxine (vitamin B6) 100 mg tablet TAKE 1 TABLET BY MOUTH EVERY MORNING active Not Available Not Available No t Available gabapentin 100 mg capsule TAKE 2 CAPSULES BY MOUTH TWICE DAILY IN THE MORNING AND AT NOON active Not Available Not Available Not Available ergocalcifer ol (vitamin D2) 1,250 mcg (50,000 unit) capsule TAKE 1 CAPSULE BY MOUTH ONCE WEEKLY ON Sunday active Not Available Not Available No t Available lorazepam 1 mg tablet TAKE 1 TABLET BY MOUTH ONCE DAILY NEEDED ANXIETY SEVERE active Not Available Not Available No t Available hydroxychlor oquine 200 mg tablet TAKE 1 TABLET BY MOUTH TWICE DAILY IN THE MORNING AND IN THE EVENING active Not Available Not Available No t Available polyethylene glycol 3350 17 gram/dose oral powder MIX 17G (1 CAPFUL) IN 8 OUNCES OF WATER AND TAKE BY MOUTH TWICE A DAY active Not Available Not Available No t Available levofloxacin 750 mg tablet TAKE 1 TABLET BY MOUTH EVERY DAY FOR 4 DAYS active Not Available Not Available No t Available zolpidem 10 mg tablet TAKE 1 TABLET BY MOUTH AT BEDTIME NEEDED active Not Available Not Available No t Available methylpredni solone 4 mg tablets in a dose pack USE DIRECTED ON PACKAGE active Not Available Not Available No t Available morphine 15 mg immediate release tablet TAKE 1 TABLET BY MOUTH EVERY 8 HOURS NEEDED FOR PAIN active Not Available Not Available No t Available ondansetron 4 mg disintegrati ng tablet DISSOLVE 1-2 TABLETS ENCIMA DE LENGUA EVERY 8 HOURS NEEDED FOR NAUSEA active Not Available Not Available No t Available fluticasone propionate 50 mcg/actuatio n nasal spray,suspen hansel USE 1 SPRAY IN EACH NOSTRIL ONCE DAILY IN THE MORNING active Not Available Not Available No t Available sertraline 50 mg tablet TAKE 1 TABLET BY MOUTH EVERY MORNING WITH 100 MG TABLET active Not Available Not Available No t Available metocloprami de 10 mg tablet TAKE 1 TABLET BY MOUTH FOUR TIMES DAILY active Not Available Not Available Not Available amoxicillin 875 mg-potassium clavulanate 125 mg tablet TAKE 1 TABLET BY MOUTH TWICE DAILY FOR 7 DAYS active Not Available Not Available No t Available Ventolin HFA 90 mcg/actuatio n aerosol inhaler INHALE 2 PUFFS BY MOUTH EVERY 4 HOURS NEEDED FOR WHEEZING OR SHORTNESS OF BREATH active Not Available Not Available No t Available buspirone 15 mg tablet TAKE 1 TABLET BY MOUTH TWICE DAILY active Not Available Not Available No t Available oxycodone 5 mg tablet TAKE 1 AND 1/2 TABLETS BY MOUTH EVERY 6 HOURS NEEDED FOR SEVERE PAIN FOR UP TO 28 DAYS DO NOT BREAK, CRUSH, DISSOLVE OR CHEW active Not Available Not Available No t Available Alcohol Prep Pads USE DIRECTED THREE TIMES DAILY active Not Available Not Available No t Available metoprolol tartrate 25 mg tablet TAKE 1 AND 1/2 TABLETS BY MOUTH TWICE DAILY IN THE MORNING AND IN THE EVENING active Not Available Not Available No t Available nitrofuranto in monohydrate/ macrocrystal s 100 mg capsule TAKE 1 CAPSULE BY MOUTH TWICE DAILY FOR 7 DAYS active Not Available Not Available No t Available Enbrel SureClick 50 mg/mL (1 mL) subcutaneous pen injector active Not Available Not Available Not Available FreeStyle Lite Strips USE DIRECTED TO TEST BLOOD SUGAR THREE TIMES DAILY active Not Available Not Available Not Available diclofenac 1 % topical gel APPLY 2 GRAMS TOPICALLY TO AFFECTED AREA(S) FOUR TIMES DAILY DIRECTED active Not Available Not Available No t Available Simponi 50 mg/0.5 mL subcutaneous pen injector active Not Available Not Available Not Available Cimzia 400 mg/2 mL (200 mg/mL x 2) subcutaneous syringe kit active Not Available Not Available Not Available GaviLyte-G 236 gram-22.74 gram-6.74 gram-5.86 gram oral solution DRINK 8 OUNCES OF LIQUID EVERY 10 MINUTES DIRECTED AFTER MIXING WITH WATER. UNTIL FECAL EFFLUENT IS CLEAR. DO NOT EXCEED 2,000 ML. active Not Available Not Available No t Available Mucus Relief ER 600 mg tablet, extended release TAKE 1 TABLET BY MOUTH TWICE DAILY FOR 7 DAYS. DO NOT BREAK, CRUSH, DISSOLVE OR CHEW active Not Available Not Available No t Available Hemorrhoidal Hygiene 50 % topical pads USE DIRECTED active Not Available Not Available No t Available TRUEplus Lancets 33 gauge USE DIRECTED TO TEST BLOOD SUGAR THREE TIMES DAILY active Not Available Not Available Not Available Linzess 290 mcg capsule TAKE 1 CAPSULE BY MOUTH EVERY MORNING active Not Available Not Available No t Available Ferate 240 mg (27 mg iron) tablet TAKE 1 TABLET BY MOUTH EVERY MORNING active Not Available Not Available No t Available Rasuvo (PF) 15 mg/0.3 mL subcutaneous auto-injecto r active Not Available Not Available Not Available Entresto 24 mg-26 mg tablet TAKE 1 TABLET BY MOUTH TWICE DAILY IN THE MORNING AND IN THE EVENING active Not Available Not Available No t Available naloxone 4 mg/actuation nasal spray FOR SUSPECTED OPIOID OVERDOSE. SPRAY 0.1mL IN ONE NOSTRIL. REPEAT IN ALTERNATE NOSTRIL 2-3 MINUTES IF NEEDED. SEEK MEDICAL ATTENTION IMMEDIATELY EVEN IF PATIENT RESPONDS. active Not Available Not Available No t Available Compact Space Chamber USE WITH INHALER EVERY 4 HOURS NEEDED (for asthma) active Not Available Not Available No t Available Proctosol HC 2.5 % topical cream perineal applicator APPLY RECTALLY TWICE DAILY FOR HEMORRHOIDS active Not Available Not Available Not Available Trulance 3 mg tablet TAKE 1 TABLET BY MOUTH EVERY DAY active Not Available Not Available No t Available Tussin DM Max 5 mg-100 mg/5 mL oral liquid TAKE 10 ML BY MOUTH EVERY 8 HOURS NEEDED FOR 5 DAYS active Not Available Not Available No t Available Vitals Date Recorded Body weight Body temperature Respiratory rate Heart rate Oxygen saturation Oxygen saturation in Arterial blood by Pulse oximetry Body height Systolic blood pressure Diastolic blood pressure Provider Name and Address Organization Details Last Updated DateTime 4 141822. 12 g 97.7 [degF] 16 /min 84 /min 98 % 98 % 160.02 cm 129 mm[Hg] 84 mm[Hg] Not Available BRAIN 4 11:29:33 Date Recorded Body temperature Oxygen saturation Oxygen saturation in Arterial blood by Pulse oximetry Heart rate Respiratory rate Systolic blood pressure Diastolic blood pressure Provider Name and Address Organization Details Last Updated DateTime 4 97.6 [degF] 95 % 95 % 91 /min 16 /min 158 mm[Hg] 87 mm[Hg] Not Available BRAIN 4 19:27:54 Date Recorded Oxygen saturation Oxygen saturation in Arterial blood by Pulse oximetry Body weight Body height Body temperature Heart rate Respiratory rate Systolic blood pressure Diastolic blood pressure Provider Name and Address Organization Details Last Updated DateTime 4 99 % 99 % 30483.2 4 g 160.02 cm 98 [degF] 81 /min 17 /min 180 mm[Hg] 100 mm[Hg] Not Available BRAIN 4 14:52:08 Date Recorded Body weight Heart rate Body temperature Respiratory rate Oxygen saturation Oxygen saturation in Arterial blood by Pulse oximetry Body height Systolic blood pressure Diastolic blood pressure Provider Name and Address Organization Details Last Updated DateTime 5 46840.2 4 g 106 /min 97.2 [degF] 16 /min 96 % 96 % 160.02 cm 125 mm[Hg] 83 mm[Hg] Not Available BRAIN 5 14:38:49 Social History None recorded. Functional Status None recorded. Mental Status None recorded. Family History Nothing Reported. Medical History No medical history recorded. Gynecological HistoryNo gynecological history recorded. Obstetrics History GPAL:G 0 P 0 0 0 0 Past Encounters Encounter ID Performer Location Encounter Start Date Encounter Closed Date Diagnosis/Indication Diagnosis SNOMED-CT Code Diagnosis ICD10 Code Diagnosis Note [id number] Carmella Rodgers MD [facility] [address] [place] [phone] 04/16/2023 11:29:27 04/17/2023 10:59:32 Urinary symptoms 810203578 R39.9 advised to stay well hydrated- offered tylenol for pain- accepted-/ advised to avoid caffeine as this is a bladder irritant/h as no history of CKD and denies any possibilit y of . I have added Pyridium for discomfort and explained to the patient that it may discolor her urine. She verbalized understand ing Pain of ear 617188814 H9 2.09 denies hearing loss- nothing visible externally -will be on antibiotic s but advised needs follow-up with PCP for full ear exam [id number] Dede Tan MD [facility] [address] [place] [phone] 07/22/2023 19:27:51 07/24/2023 11:46:37 Urinary symptoms 269002041 R39.9 [id number] LORENA MATTA MD [facility] [address] [place] [phone] 0 01/06/2024 14:37:47 01/08/2024 10:09:12 Community acquired pneumonia [id number] J18.9 Evaluation in the field was performed by my developer advocate colleague, as noted above, I provided real-time direction and supervisio n for this visit. The evaluation revealed a 43-year-ol d female with a past medical history of hypertensi on, hypoglycem ia, arthritis, adrenal insufficie ncy, bariatric surgery, congestive heart failure, chronic pain, anxiety, rheumatoid arthritis, bipolar disorder and anemia. She complains of feeling unwell with cough, cold, congestion , body aches, fever, and shortness of breath for the last 3 days.The patient reports that 3 days ago, she woke up feeling very sick with chest congestion and pain when coughing, sore back, sinus pressure, and green productive phlegm. She reports having a fever that is controlled with Tylenol. The patient also complains of nausea and vomiting, which have prevented her from taking her daily medication s, including her blood pressure medication s. She denies chest pain or diarrhea and has no known sick contacts. Vital signs show elevated blood pressure (the patient had not taken her BP medication s due to nausea), but otherwise stable. The patient is saturating 99% on room air and is afebrile.L ungs clear to auscultati on bilaterall y, no lower extremity edema.Rapi d tests for COVID, flu, and strep were negative.Q Tc is 446 ms.Allergi es reviewed. Impression :Community acquired Pneumonia Plan:-Andreia ent reports pruritus with Ceftriaxon e. Since ECG showed a normal QTc, treatment with Levofloxac in 750 mg daily for a total of 5 days was initiated. The first dose was given by the developer advocate. -Zofran 4 mg PO was given. No prescripti on was sent due to concerns about the risk of prolonged QT while on Levofloxac in.Prescri ption for Robitussin chest congestion sent to her pharmacy.- Advised to drink tea at home and plenty of fluids.If ongoing fever, worsening cough, or worsening rib pain occur, the patient was advised to go to the ED, as a chest X-ray may be required.- Pt advised to take her BP meds-Red flags were discussed with the patient. Primary care, consider__ _ Dispositio n: We discussed the diagnostic uncertaint y of home visits and the risk associated with this. In this case, the patient and I felt this to be an acceptable and reasonable amount of risk given the benefit of avoiding an ED visit. We discussed the need to seek care urgently/e mergently in the setting of any new or worsening serious symptoms, particular ly high fevers that don't respond to Tylenol, chills, CP, SOB, nausea, vomiting, diarrhea, weakness, dizziness, or any other concerns. [id number] Carmella Rodgers MD [facility] [address] [place] [address] 05/13/2024 14:38:42 05/14/2024 12:20:52 Pain of left knee joint [id number] 78110 M25.562 advised ice / wrapped in a towel for 15-20 min q 3-4H w/a to affected area/patie nt is not anticoagul ated/ has normal renal function/ no history active PUD or of black or bloody stools per the patient although she is on hydroxychl oroquine 1 dose of ketorolac is not contraindi cated to provide pain relief. She may continue her 7.5 mg oxycodone as prescribed . She has Tylenol at home given weight may have 500 to 1000 mg maximally 4 g per 24 hours Nausea [id number] R11.0 Patient denies any possibilit y of /is only in same-sex relationsh ip. Patient feels the pain is causing her nausea. Has had Zofran before but has not in the home offered and accepted. Health Concerns Section Related Observation LastModified by Organization Detai ls LastModified Time None Recorded Concern Status LastModified by Organization Details LastModified Time None Recorded Advance Directives Directive None Recorded Payers Insurance Date Sequence Insurance Name Policy Number Policy Multani Covered Member ID Multani Member ID Guarantor Name 05/14/2024 1 [facility] - DOS ON OR AFTER 2022 - DUAL ELIGIBLE - LONGTERM OPTIONS AND ONE CARE (MEDICARE REPLACEMENT/ADV ANTAGE - HMO) Gita Francis [id number] Gita Francis Notes Date Note Type Note Provider Name and Address Organization Details Recorded Time 04/16/2023 text/html HPI: Triage call received with complaints of painful urination and ear pain in left ear x 4 days. ..................... ..................... ..................... ..................... ..................... ..................... ............... [facility] Nurse Triage Notes (Corina Doyle): Comments: No further information needed to process visit. ..................... ..................... ..................... ..................... ..................... ..................... ............... Slab Installer Note From [facility]: Pt reports left ear pain, dysuria and bilateral flank pain x4 days. Pt denies cough, sinus congestion, CP, SOB, BACON, hematuria, f/n/v/d. Pt reports hx of UTI? s , last was 6 months ago. NKDA. Pt is alert, NAD. VSS. Afebrile. Outer left ear is painful to touch, no edema or erythema. Lungs CTA. Benign ABD exam. Bilateral CVA tenderness. No LE edema. UA +JUANY, +NIT, +PRO. UC sent to [facility]. Pt treated with Tylenol 1 g and bactrim DS. Pt instructed to stay well hydrated, f/u with PCP later this week and to seek emergent medical care for new or worsening sx, which are reviewed with her. ..................... ..................... ..................... ..................... ..................... ..................... ............... Disposition: Fulfilled Carmella Rodgers MD [address] [facility],[address], [place], [phone], Monitor[employer] 04/16/2023 23:55:06 07/22/2023 text/html CRC Nurse Triage Notes (Rosales Bhatti): Chief Complaints: Abdominal Pain, UTI/Pyelonephritis, Nausea/Vomiting PMH: Hypertension, Diabetes, Heart Disease Allergies: Ceftriaxone Comments: Lost Charge Card Clerk verified the member's name//address and phone number. Mbr Yemeni speaking only, detail technician #[id number] used for triage. Mbr c/o bilateral flank pain, as well as pain and burning with urination. Mbr reports symptoms started approx one week ago but have worsened over the last couple days. Mbr also c/o lower abdominal pain & nausea. Mbr denies vomiting or diarrhea. Education provided on the response time and the member was advised to monitor reported s/s and seek emergency treatment if needed -Ginny Bhatti RN [facility] HPI: 1 wk UTI, h/o same 4mo ago. no vomiting, fever. some nausea. Slab Installer POC Test Results from Gabe White - ALS Urine Dipstick (1) [19:41] Urine leukocytes: 2+ JUANY Urine nitrites: + NIT Urine urobilinogen: - URO Urine protein: 2+ PRO Urine pH: 5.0 pH Urine blood: - BLO Urine specific gravity: 1.015 SG Urine ketones: - KET Urine bilirubin: - SABRINA Urine glucose: - GLU ..................... ..................... ..................... ..................... ..................... ..................... ............... Slab Installer Note From Gabe White: Pt reports one week of dysuria, flank pain and suprapubic pain. Pt jeanna hematuria, f/n/v/d. Pt reports last UTI was in March. NKDA. Pt is alert, NAD. VSS. Afebrile. Non focal neuro exam. Normal gait. Lungs CTA. Benign ABD exam. Right side CVA tenderness. No LE edema. Straight cath for UA: clear, dark yellow, 2+ JUANY, +NIT, 2+ PRO. UC sent to [facility]. [facility] to send rx to pharmacy. Pt instructed to stay well hydrated, f/u with PCP and to seek emergent medical care for new or worsening sx, which are reviewed with her. ..................... ..................... ..................... ..................... ..................... ..................... ............... Disposition: Fulfilled Dede Tan MD [address] [place] [address],[address], [place], [phone], Monitor[employer] 07/22/2023 19:53:01 01/06/2024 text/html CRC Nurse Triage Notes (Santos Burroughs): Reason For Request: Patient has a head ache, body pain, chills, fever, lungs hurt, general illness. Chief Complaints: URI PMH: Hypertension, Diabetes, Heart Disease Allergies: Ceftriaxone Comments: Lost Charge Card Clerk verified the Pt.'s name//address and phone number. Education provided on the response time and the Pt. was advised to monitor reported s/s and seek emergency treatment if needed. HPI: ? I 10? HTN (hypertension)G47.00? LylrbtitO36.2? AcewjumepztgN60.90? GpdmoondhG42.40? Adrenal syhoewhuivlniV26.84? Bariatric surgery tlfywuX03.844? Bariatric surgery status complicating uxhqkenotfZ35.9? CHF (congestive heart failure)G89.29? Chronic painF41.1? IzraylkC47.9? Rheumatoid bfixeiopbG38.9? Vitamin D qznsefybdvU43.0? Acute stress xpfcyxyaV67.5? Bipolar disorder, current episode depressed, severe, with psychotic aqvplhmyJ63.3? Major depressive disorder, recurrent, severe with psychotic zmtkgxmwA02.0? Bilateral primary osteoarthritis of kneeD64.9? Anemia, unspecified type.Pt reports feeling unwell with a cough/cold and congestion - Body aches - Fever - SOB - Breathing is non labored and the pt is speaking full sentences - S/S for 3 days. Wellness visit requested. Slab Installer Organization Information for [employer] Legal Name: [employer]? Address: [address] [place] [id number], Vocational Rehabilitation Technician: Jp Johns MD CLIA No.: [id number] Slab Installer POC Test Results from [facility] - ROMINA Rapid strep test (14:54:11) Strep: - Rapid COVID antigen (14:54:12) COVID: - Rapid influenza antigen (14:54:15) Flu: - EKG (15:18:24) EKG test performed. Attachments uploaded as part of this test result can be found under Documents section. ..................... ..................... ..................... ..................... ..................... ..................... ............... Slab Installer Note From [employer] [facility]: [facility] makes pt contact 43 yo F CC of congestion and fever.[facility] obtains vital signs. Also obtains a negative covid, fluA&B, strep. PT reports 3 days ago she woke up very sick. PT describes chest congestion with pain on coughs, sore back, sinus pressure, green productive phlegm. PT reports a fever that is sometimes controlled with tylenol. PT has an allergy to ceftriaxone. PT also complains of n/v, causing her to not be able to take her daily meds which include metoprolol, pt has high blood pressure suspected from not taking the daily metoprolol.[facility] contacts [facility] and explains above mentioned. [facility] orders a 12 lead to check pts qTc before administration of zofran ODT and levofloxacin. qTc is normal. [facility] sends prescription of levofloxacin to pharmacy which pt is advised to take one tablet by mouth for four days starting tomorrow. [facility] administers 1 zofran ODT and 750mg of levofloxacin which is given in 1 500mg tablet and 1 250mg tablet. PT advised to call 911 or seek a higher level of care such as the emergency department if she begins having chest pain, severe n/v, or sob. PT understands. [facility] clear. ..................... ..................... ..................... ..................... ..................... ..................... ............... Disposition: Fulfilled LORENA MATTA MD [address] [place] [address],[address], [place], [phone] [employer] - [employer] 01/06/2024 15:51:13 05/13/2024 text/html CRC Nurse Triage Notes (Dulce Najera): Reason For Request: Sunday she got a Knee shot, and now it's swollen, - and painful. Patient Reports: Fever and chills noted in setting of woundDenies: Kahn ? Flash, circumferential kahn Kahn reported with black tissue to the area Open skin area after a fall with uncontrolled bleeding Abscess/infection with streaking noted, presence of fever or without History of cellulitis, isolated redness noted Rash Bites -bugs, spider Abscess Chief Complaints: Extremity Pain, Extremity SwellingPMH: Hypertension, Coronary Artery Disease, Congestive Heart Failure, Diabetes Mellitus Type 2PMH Reviewed at 05/13/2024 - :[facility] Reviewed at 05/13/2024 - 11:04Comments: music manager utilized.c/o left knee pain, reported having a Cortisone injection Manish and has pain since then. Member has been using heat for pain control. Reporting lack of appetite and nausea for 3 days now.Fever/chills also but no other Resp symptoms reportedHas not reached out to PCP or office that performed procedure.Right knee is hot to touch. no redness noted per member.Advised about response time & to seek 911 for immediate helpNicole DOMINGUEZ Slab Installer Organization Information for [facility] Legal Name: [facility] Transportation Address: [address] [place] [address], JORI Davidson [address], Vocational Rehabilitation Technician: Altaf Conklin MD CLIA No.: [id number] Slab Installer POC Test Results from [facility] (14:39:48) pH: 7.44 pH units pCO2: 36.5 mmHg pO2: 69.6 mmHg Na: 142 mmol/L K: 3.5 mmol/L iCa: 1.15 mmol/L Cl: 105 mmol/L TCO2: 23.6 mEq/L Hct: 39 % Hb: 13.3 g/dL Glu: 96 mg/dL Lac: 1.52 mmol/L Cr: 0.58 mg/dL BUN: 7 mg/dL A mmol/L HCO3: 24.5 mmol/L SEGMD patient denies fevers chills or sweats.: Of note her weight was 233 pounds per family practice note on 03/28/2024. Per family practice notes she has a history of chronic pain, rheumatoid arthritis, hypoadrenalism along with diabetes 2, hypertension and congestive heart failure with reduced EF and obesity. Patient had her left knee injected with cortisone 4 days ago. She states it so painful despite her oxycodone 7.5 mg she is having difficulty weightbearing due to the pain. She denies chest pain or shortness of breath she denies calf pain. She is on Plaquenil, she denies taking any NSAIDs or Tylenol. She has had nausea but no vomiting no diarrhea ..................... ..................... ..................... ..................... ..................... ..................... ............... Slab Installer Note From [facility]: This 43-year-old female with a history including but not limited to HTN, CAD, CHF, DM type II, rheumatoid arthritis requested a visit today to have her left knee assessed. Patient states she had a cortisone injection on Sunday and is had worsening pain in the left knee since. Patient states she is unable to bear weight but denies any known fevers, vomiting, diarrhea. Patient states she believes the pain is making her nauseous despite taking oxycodone 7.5 mg. Patient states she is not reached out to the office that administered the injection. Patient presents awake and alert, in no acute distress and speaking full sentences. She has mild tachycardia, vital signs are otherwise stable and she is afebrile. Nonfocal neurological exam. Lungs are clear throughout auscultation. Abdomen is soft, nontender, nondistended. Left knee is noticeably more swollen than the right, no erythema but is hot to the touch at the center of the patella and around the lateral side of the knee. Unremarkable POC labs are uploaded. I treated this patient with acetaminophen 1 g PO, ondansetron 4 mg ODT, ketorolac 15 mg IM, left deltoid. We discussed the diagnostic uncertainty of home visits and the risk associated with this. In this case, the patient and I felt this to be an acceptable and reasonable amount of risk given the benefit of avoiding an ED visit. I explained to the patient that we are unable to differentiate between infection versus inflammation. I recommend she apply ice wrapped in a towel to the area. I instructed her to contact the office that provided the injection today, advise them of the situation and ask for further instructions. I also instructed her to present to the emergency department for any new or worsening severe symptoms such as chest pain, shortness of breath, high fever, worsening severe pain, altered mental status. The patient was given the opportunity to ask questions and is agreeable to this plan. [facility] Lab Orders: BMP, serum or plasma: Performed [facility] Medication Orders: ketorolac 30 mg/mL injection solution: Administered ondansetron 4 mg disintegrating tablet: Administered ..................... ..................... ..................... ..................... ..................... ..................... ............... [facility] Consulted: Carmella Rodgers ..................... ..................... ..................... ..................... ..................... ..................... ............... Disposition: Fulfilled Carmella Rodgers MD [address] [facility],[address], [place], [address], Cryo-InnovationJUAN FRANCISCO 05/13/2024 15:43:55 OBGyn Episode No OBEpisode recorded.
--- OUTSIDE RECORDS SUMMARY | 2024-07-24 12:48 | XMS_ITS | Encounter Summary ---
Author Organization [employer] Address [address] [facility] [address] [place] [address] Care Team Providers Care Registered Representative Name Role Phone Joanne Chino NP Primary Care Provider [phone] Reason for Visit * Reason Comments Med Refill Encounter Details Date Type Department Care Team ([facility] st Contact Info) Description 01/10/2024 Refill [facility] [address] [place], [place] [phone] Joanne Chino NP [address] [place], [place] [phone] Rheumatoid arthritis involving multiple sites, unspecified whether [...] Description 07/29/2024 10:00 AM EDT Office Visit [facility] ADULT DENTAL [address] [place] [phone] Elva Osorio 09/02/2024 1:30 PM EDT Office Visit [facility] [address] [place] [phone] Joanne Chino NP [address] [place] [phone] 09/08/2024 1:00 PM EDT Clinical Support [facility] [address] [place] [phone] Franca Murillo RN documented as of this encounter Visit Diagnoses Diagnosis Rheumatoid arthritis involving multiple sites, unspecified whether rheumatoid factor present (CMS/HCC) Chronic pain syndrome documented in this encounter Additional Health Concerns Assessment Noted Time PHQ-9 Depression Total Score: 0 08/31/19 24 2:53 PM EDT documented as of this encounter Care Teams Registered Representative Relationship Specialty Start Date End Date Joanne Chino NP [address] [place] [address] PCP - General Family Medicine 08/31/23 documented as of this encounter
--- OUTSIDE RECORDS SUMMARY | 2024-07-24 12:48 | XMS_ITS | Encounter Summary ---
Author Organization [employer] Address 75 [facility] 7t [place] [address] Care Team Providers Care Service Line Bus Cleaner Name Role Phone Joanne Chino NP Primary Care Provider [phone] Reason for Visit * Reason Onset Date Comments Med Refill 07/23/2024 Encounter Details Date Type Department Care Team (Late st Contact Info) Description 07/23/2024 Refill [facility] MEDICINE [address] [place], [place] [phone] Joanne Chino NP [address] [place] [address] Chronic pain syndrome Social History Tobacco Use [...] encounter Miscellaneous Notes * Telephone Encounter - Nichole Reddy RN - 07/23/2024 3:40 PM EDT [employer] checked by publications writer on 07/23/24. Pt picked up a 28 day supply of oxyCODONE (Roxicodone) 15 MG immediate release tablet on 06/27/24. Pt not due for refill until 07/25/24. Medication pended to PCP with a starting date of 07/25/24 for review. Message forwarded to PCP to review and advise. * Telephone Encounter - Eva Pichardo - 07/23/2024 1:28 PM EDT TC from pt requesting medication refill. Medications needing refill : oxyCODONE (Roxicodone) 15 MG immediate release tablet To be sent to: [facility] pharmacy documented in this encounter Plan of Treatment Upcoming Encounters Date Type Department Care Team (Late st Contact Info) Description 07/29/2024 10:00 AM EDT Office Visit [facility] ADULT DENTAL [address] [place] [address] Elva Osorio 09/02/2024 1:30 PM EDT Office Visit [facility] MEDICINE [address] [place] [address] Joanne Chino NP [address] [place] [address] 09/08/2024 1:00 PM EDT Clinical Support [facility] MEDICINE [address] [place] [address] Franca Murillo RN documented as of this encounter Visit Diagnoses Diagnosis Chronic pain syndrome documented in this encounter Additional Health Concerns Assessment Noted Time PHQ-9 Depression Total Score: 0 08/31/19 2:53 PM EDT documented as of this encounter Care Teams Service Line Bus Cleaner Relationship Specialty Start Date End Date Joanne Chino NP [address] [place] [address] PCP - General Family Medicine 08/31/23 documented as of this encounter
--- OUTSIDE RECORDS SUMMARY | 2024-07-24 12:48 | XMS_ITS | Encounter Summary ---
Author Organization [employer] Address 75 [facility] 7t [place] [address] Care Team Providers Care Screen And Cyclone Repairer Name Role Phone Ryanne Dao PICKLER HELPER Primary Care Provider [phone] Joanne Chino NP Primary Care Provider [phone] Reason for Visit * Reason Comments Med Refill Encounter Details Date Type Department Care Team ([facility] st Contact Info) Description 07/05/2023 Refill [facility] MEDICINE [address] [place], [place] [phone] Name, MD Juan Pablo [address] [place] [address] Rheumatoid arthritis involving multiple sites, unspecified whether [...] problems with any of the following? Mold;Lead [place] or Pipes 05/18/2023 Food Insecurity Answer Date [...] Description 07/29/2024 10:00 AM EDT Office Visit [facility] ADULT DENTAL [address] [place] [address] Elva Osorio 09/02/2024 1:30 PM EDT Office Visit [facility] MEDICINE [address] [place] [address] Joanne Chino NP 230 [place] [address] 09/08/2024 1:00 PM EDT Clinical Support [facility] MEDICINE [address] [place] [address] Franca Murillo RN documented as of this encounter Visit Diagnoses Diagnosis Rheumatoid arthritis involving multiple sites, unspecified whether rheumatoid factor present ([facility]) Chronic pain syndrome documented in this encounter Additional Health Concerns Assessment Noted Time PHQ-9 Depression Total Score: 24 024 2:10 PM EST documented as of this encounter Care Teams Screen And Cyclone Repairer Relationship Specialty Start Date End Date Ryanne Dao FNP [address] [place] [address] PCP - General Family Medicine 02/02/22 08/30/23 Joanne Chino NP [address] [place] [address] PCP - General Family Medicine 08/31/23 documented as of this encounter
--- OUTSIDE RECORDS SUMMARY | 2024-07-24 12:48 | XMS_ITS | Encounter Summary ---
Author Organization [employer] Address 75 [facility] 7t [place] [address] Care Team Providers Care Orthodontic Band Maker Name Role Phone Ryanne DaoP Primary Care Provider [phone] Joanne Chino NP Primary Care Provider [phone] Reason for Visit * Reason Comments Med Refill Encounter Details Date Type Department Care Team (Late st Contact Info) Description 05/22/2022 Refill [facility] MEDICINE [address] [place] [address] Ryanne Dao FNP [address] [place] [address] Rheumatoid arthritis involving multiple sites, unspecified whether rheumatoid factor present (CMS/HCC); Chronic pain syndrome Social History Tobacco Use Types Packs/Day Years Used Date Smoking Tobacco: Never Smokeless Tobacco: Never Depression Answer Date Recorded Patient Health Questionnaire-9 [...] Description 07/29/2024 10:00 AM EDT Office Visit [facility] ADULT DENTAL [address] [place] [address] Elva Osorio 09/02/2024 1:30 PM EDT Office Visit [address] [address] Joanne Chino NP [address] [place] [address] 09/08/2024 1:00 PM EDT Clinical Support [address] [address] Franca Murillo RN documented as of this encounter Visit Diagnoses Diagnosis Rheumatoid arthritis involving multiple sites, unspecified whether rheumatoid factor present ([facility]) Chronic pain syndrome documented in this encounter Care Teams Orthodontic Band Maker Relationship Specialty Start Date End Date Ryanne Dao FNP [address] [place] [address] PCP - General Family Medicine 02/02/22 08/30/23 Joanne Chino NP [address] [place] [address] PCP - General Family Medicine 08/31/23 documented as of this encounter
--- OUTSIDE RECORDS SUMMARY | 2024-07-24 12:48 | XMS_ITS | Encounter Summary ---
Author Organization [employer] Address [address] [facility] [address] 7t [place] [address] Care Team Providers Care Spray Rig Operator Name Role Phone Joanne Chino MARY Primary Care Provider [phone] Reason for Visit * Reason Onset Date Comments Chart Prep 07/21/2024 Encounter Details Date Type Department Care Team (Late st Contact Info) Description 07/21/2024 Telephone [facility] MEDICINE [address] [place] [address] Joslyn Talbert MA Chart Prep Social History Tobacco Use Types Packs/Day Years [...] encounter Miscellaneous Notes * Telephone Encounter - Joslyn Talbert MA - 07/21/2024 1:26 PM EDT Chart Prep Labs: done Images: done Referrals: Pt closed Vaccines due: Covid, Flu, PCV20, Tdap, and Hep B Screenings: mammogram and Cervical cancer, HIV,Hep C, HIV Overdue care gaps: Disability screen and Tobacco, Glucose documented in this encounter Plan of Treatment Upcoming Encounters Date Type Department Care Team (Late st Contact Info) Description 07/29/2024 10:00 AM EDT Office Visit [facility] ADULT DENTAL [address] [place] [address] Elva Osorio 09/02/2024 1:30 PM EDT Office Visit [facility] MEDICINE [address] [place] [address] Joanne Chino NP [address] [place] [address] 09/08/2024 1:00 PM EDT Clinical Support [facility] [address] [place] [address] Franca Murillo RN documented as of this encounter Visit Diagnoses Not on filedocumented in this encounter Additional Health Concerns Assessment Noted Time PHQ-9 Depression Total Score: 0 08/31/19 2:53 PM EDT documented as of this encounter Care Teams Spray Rig Operator Relationship Specialty Start Date End Date Joanne Chino NP [address] [place] [address] PCP - General Family Medicine 08/31/23 documented as of this encounter
--- OUTSIDE RECORDS SUMMARY | 2024-07-24 12:48 | XMS_ITS | Encounter Summary ---
Author Organization [employer] Address 75 [facility] 7t [place] [address] Care Team Providers Care Honing Job Setter Name Role Phone Joanne Chino NP Primary Care Provider [phone] Reason for Visit * Reason Comments Med Refill Encounter Details Date Type Department Care Team ([facility] st Contact Info) Description 05/02/2024 Refill [facility] MEDICINE [address] [place], [place] [phone] Joanne Chino NP [address] [place], [place] [phone] Chronic pain syndrome Social History Tobacco Use [...] Description 07/29/2024 10:00 AM EDT Office Visit [facility] ADULT DENTAL [address] [place] [address] Elva Osorio 09/02/2024 1:30 PM EDT Office Visit [facility] MEDICINE [address] [place] [address] Joanne Chino NP [address] [place] [address] 09/08/2024 1:00 PM EDT Clinical Support [facility] [address] [place] [address] Franca Murillo, ALBERTO documented as of this encounter Visit Diagnoses Diagnosis Chronic pain syndrome documented in this encounter Additional Health Concerns Assessment Noted Time PHQ-9 Depression Total Score: 0 08/31/19 2:53 PM EDT documented as of this encounter Care Teams Honing Job Setter Relationship Specialty Start Date End Date Joanne Chino NP [address] [place] [address] PCP - General Family Medicine 08/31/23 documented as of this encounter
--- OUTSIDE RECORDS SUMMARY | 2024-07-24 12:48 | XMS_ITS | Encounter Summary ---
Author Organization [employer] Address 75 [facility] 7t [place] [address] Care Team Providers Care Decommissioning Well Site Manager Name Role Phone Ryanne DaoP Primary Care Provider [phone] Joanne Chino NP Primary Care Provider [phone] Reason for Visit * Reason Onset Date Comments Med Refill 03/28/2022 Encounter Details Date Type Department Care Team (Late st Contact Info) Description 03/28/2022 Telephone [facility] MEDICINE [address] [place], [place] [phone] Ryanne Dao FNP [address] [place] [address] Med Refill Social History Tobacco Use Types Packs/Day Years [...] encounter Miscellaneous Notes * Telephone Encounter - Franca Murillo RN - 03/28/2022 3:19 PM EST Oxycodone refill request was sent to PCP yesterday. Awaiting provider approval. * Telephone Encounter - Clifford Alegria - 03/28/2022 1:46 PM EST Tc from pt requesting status on medication Oxycodone 5 mg documented in this encounter Plan of Treatment Upcoming Encounters Date Type Department Care Team (Late st Contact Info) Description 07/29/2024 10:00 AM EDT Office Visit [facility] ADULT DENTAL [address] [place] [address] Elva Osorio 09/02/2024 1:30 PM EDT Office Visit [facility] MEDICINE [address] [place] [address] Joanne Chino NP [address] [place] [address] 09/08/2024 1:00 PM EDT Clinical Support [address] [address] Franca Murillo, ALBERTO documented as of this encounter Visit Diagnoses Not on filedocumented in this encounter Care Teams Decommissioning Well Site Manager Relationship Specialty Start Date End Date Ryanne Dao FNP [address] [place] [address] PCP - General Family Medicine 02/02/22 08/30/23 Joanne Chino NP [address] [place] [address] PCP - General Family Medicine 08/31/23 documented as of this encounter
--- OUTSIDE RECORDS SUMMARY | 2024-07-24 12:48 | XMS_ITS | Encounter Summary ---
Author Organization [employer] Address 75 [facility] 7t [place] [address] Care Team Providers Care Media Consultant Outside Sales Name Role Phone Ryanne DaoP Primary Care Provider [phone] Joanne Chino NP Primary Care Provider [phone] Reason for Visit * Reason Onset Date Comments Reschedule 05/23/2023 Encounter Details Date Type Department Care Team (Late st Contact Info) Description 05/23/2023 Telephone [facility] MEDICINE [address] [place], [place] [phone] Ryanne Dao FNP [address] [place] [address] Reschedule Social History Tobacco Use Types Packs/Day Years [...] problems with any of the following? Mold;Lead [place] or Pipes 05/18/2023 Food Insecurity Answer Date [...] encounter Miscellaneous Notes * Telephone Encounter - Kavita Brown - 05/23/2023 9:01 AM EST Tc from pt requesting r/s WEB DESIGN INTERN appt. Pt sick. documented in this encounter Plan of Treatment Upcoming Encounters Date Type Department Care Team (Late st Contact Info) Description 07/29/2024 10:00 AM EDT Office Visit [facility] ADULT DENTAL [address] [place] [address] Elva Osorio 09/02/2024 1:30 PM EDT Office Visit [facility] MEDICINE [address] [place] [address] Joanne Chino NP [address] [place] [address] 09/08/2024 1:00 PM EDT Clinical Support [facility] MEDICINE [address] [place] [address] Franca Murillo RN documented as of this encounter Visit Diagnoses Not on filedocumented in this encounter Additional Health Concerns Assessment Noted Time PHQ-9 Depression Total Score: 24 024 2:10 PM EST documented as of this encounter Care Teams Media Consultant Outside Sales Relationship Specialty Start Date End Date Ryanne Dao FNP [address] [place] [address] PCP - General Family Medicine 02/02/22 08/30/23 Joanne Chino NP [address] [place] [address] PCP - General Family Medicine 08/31/23 documented as of this encounter
--- OUTSIDE RECORDS SUMMARY | 2024-07-24 12:48 | XMS_ITS | Encounter Summary ---
Author Organization [employer] Address 75 [facility] 7t [place] [address] Care Team Providers Care Utility Bill Complaints Investigator Name Role Phone Joanne Chino NP Primary Care Provider [phone] Reason for Visit * Reason Comments Med Refill Encounter Details Date Type Department Care Team ([facility] st Contact Info) Description 05/26/2024 Refill [facility] MEDICINE [address] [place], [place] [phone] Joanne Chino NP [address] [place], [place] [phone] Chronic pain syndrome Social History Tobacco Use [...] Description 07/29/2024 10:00 AM EDT Office Visit [facility] ADULT DENTAL [address] [place] [address] Elva Osoiro 09/02/2024 1:30 PM EDT Office Visit [facility] MEDICINE [address] [place] [address] Joanne Chino NP [address] [place] [address] 09/08/2024 1:00 PM EDT Clinical Support [facility] MEDICINE [address] [place] [address] Franca Murillo, ALBERTO documented as of this encounter Visit Diagnoses Diagnosis Chronic pain syndrome documented in this encounter Additional Health Concerns Assessment Noted Time PHQ-9 Depression Total Score: 0 08/31/19 2:53 PM EDT documented as of this encounter Care Teams Utility Bill Complaints Investigator Relationship Specialty Start Date End Date Joanne Chino NP [address] [place] [address] PCP - General Family Medicine 08/31/23 documented as of this encounter
--- OUTSIDE RECORDS SUMMARY | 2024-07-24 12:49 | XMS_ITS | Referral Summary ---
Author Organization [facility] Address [address] [place] [address] Care Team Providers Care Car Pincher Name Role Phone Joanne Chino Primary Care Provider [phone] Encounters Date Type Department Care Team Description 07/23/2024 Telephone [facility] [address] [place] [address] [phone] Dozer Operator: Sarai Whitlock Prior Authorization (upadacitinib ER (RINVOQ) 15 mg tablet) 07/18/2024 2:00 PM EDT Follow-Up [facility] [address] [place] [address] [phone] Dozer Operator: Teresa Charles PA 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) 07/15/2024 Telephone [facility] [address] [place] [address] [phone] Dozer Operator: Chela Gabriel Telephone Intake, Staff PAC Urgent Appt Request 06/23/2024 2:23 PM EDT - 06/23/2024 11:59 PM EDT Hospital Encounter [facility] [address] [place] [address] 13330 Arthralgia, unspecified joint Discharge Disposition: Home or Self Care () 06/23/2024 1:00 PM EDT Office Visit [facility] [address] [place] [address] [phone] Dozer Operator: Teresa Charles PA Arthralgia, unspecified joint (Primary Dx); Inflammatory arthritis from Last 3 Months Allergies Active Allergy Reactions Criticality Noted Date Comments Ceftriaxone Unknown 09/05/2022 Other reaction(s): pruritis without rash Medications Entresto 24-26 mg per tablet 04/29/19 25 Active LORazepam (ATIVAN) 1 mg tablet Take 1 tablet by mouth. 10/23/19 24 Active busPIRone (BUSPAR) 10 mg tablet 10/18/19 24 Active Rasuvo, PF, 15 mg/0.3 mL auto-injector SMARTSIG:SUB -Q 03/17/20 24 Active gabapentin (NEURONTIN) 100 mg capsule Take 200 mg by mouth 2 times daily. 11/06/19 24 Active ondansetron (ZOFRAN ODT) 4 mg disintegrating tablet 05/13/19 25 Active acarbose (PRECOSE) 50 mg tablet Take 50 mg by mouth 3 times daily. 04/03/19 25 Active gabapentin (NEURONTIN) 800 mg tablet Take 1 tablet by mouth at bed time. 03/03/20 24 Active hydroxychloroquin e (PLAQUENIL) 200 mg tablet 06/04/19 25 Active Alcohol Prep Pads pads, medicated USE DIRECTED THREE TIMES DAILY 03/04/20 24 Active Ventolin HFA 90 mcg/actuation inhaler INHALE 2 PUFFS BY MOUTH EVERY 4 HOURS NEEDED FOR WHEEZING OR SHORTNESS OF BREATH 07/16/19 24 Active metoprolol tartrate (LOPRESSOR) 25 mg tablet TAKE 1 AND 1/2 TABLETS BY MOUTH TWICE DAILY IN THE MORNING AND IN THE EVENING 05/31/19 25 Active Freestyle Lite test strips 05/12/19 25 Active TRUEplus Lancets lancet 33 gauge 05/12/19 25 Active folic acid (FOLVITE) 1 mg tablet 03/07/20 24 Active methylPREDNISolon e (MEDROL DOSEPACK) 4 mg tablet 05/15/19 25 Active methylPREDNISolon e (MEDROL) 8 mg tablet Take 1 tablet by mouth daily. 09/26/19 24 Active Trulance 3 mg tablet 04/29/19 25 Active metoclopramide (REGLAN) 5 mg tablet 09/25/19 24 Active Ferate 240 mg (27 mg iron) tablet Take 1 tablet by mouth once a day. 05/23/19 25 Active furosemide (LASIX) 40 mg tablet Take 1.5 tablets by mouth daily. Active buPROPion (WELLBUTRIN) 100 mg tablet 06/04/19 25 Active spironolactone (ALDACTONE) 25 mg tablet Take 1 tablet by mouth every evening. 05/31/[address] (PROTONIX) 40 mg tablet 06/03/19 25 Active zolpidem (AMBIEN) 10 mg tablet 06/14/19 25 Active predniSONE (DELTASONE) 10 mg tablet Take 2 tablets (20 mg total) by mouth once a day. 60 tablet 07/19/19 25 025 Active upadacitinib ER (RINVOQ) 15 mg tabletIndications :Rheumatoid arthritis involving multiple sites with positive rheumatoid factor (HCC) Take 1 tablet (15 mg total) by mouth once a day. 30 tablet 2 07/22/19 25 025 Active Cimzia 400 mg/2 mL (200 mg/mL x 2) subcutaneous injection 05/29/19 25 025 Discontinued oxyCODONE (ROXICODONE) 15 mg immediate release tablet Take 7.5 mg by mouth every 6 hours as needed. 05/31/19 25 025 Active Problems No known active problems Social History Tobacco Use Types Packs/Day Years [...] Orientation Other 04/15/2024 7: 52 PM EST Last Filed Vital Signs Vital Sign Reading Time Taken Comments Blood Pressure 124/81 07/18/2024 1:48 PM EDT Pulse 79 07/18/2024 1:48 PM EDT Temperature 36.7 ??C (98 ??F) 07/18/2024 1:48 PM EDT Respiratory Rate - - Oxygen Saturation 96% 07/18/2024 1:48 PM EDT Inhaled Oxygen Concentration - - Weight 102.5 kg (226 lb) 07/18/2024 1:48 PM EDT Height 160 cm (5' 3 ) 07/18/2024 1:48 PM EDT Body Mass Index 40.03 07/18/2024 1:48 PM EDT Plan of Treatment Upcoming Encounters Date Type Department Care Team (Late st Contact Info) Description 10/10/2024 2:00 PM EDT Follow-Up [facility] [address] [place] [address] [phone] Dozer Operator: Teresa Charles PA [address] [place] [phone] Procedures * Due to [place] state law, this organization might not be sharing negative HIV tests. Procedure Name Priority Date/Time Associated Diagnosis Comments HEPATITIS PANEL, ACUTE Routine 2:38 PM EDT Rheumatoid arthritis involving multiple sites with positive rheumatoid factor (HCC) QUANTIFERON-TB GOLD PLUS, 1 [id number] Routine 07/18/2024 2:38 PM EDT Rheumatoid arthritis involving multiple sites with positive rheumatoid factor (HCC) CBC AUTO DIFFERENTIAL Routine 06/23/2024 3:18 PM EDT Arthralgia, unspecified joint COMPREHENSIVE METABOLIC PANEL Routine 06/23/2024 3:18 PM EDT Arthralgia, unspecified joint SEDIMENTATION RATE, AUTOMATED Routine 06/23/2024 3:18 PM EDT Arthralgia, unspecified joint C-REACTIVE PROTEIN Routine 06/23/2024 3: 18 PM EDT Arthralgia, unspecified joint RHEUMATOID FACTOR Routine 06/23/2024 3:1 8 PM EDT Arthralgia, unspecified joint CYCLIC CITRULLLNATED PEPTIDE (CCP) ANTIBODY, IGG Routine 06/23/2024 3:18 PM EDT Arthralgia, unspecified joint BRYNN SCREEN, IFA, W/REFLEX TO TITER & PATTERN Routine 06/23/2024 3:18 PM EDT Arthralgia, unspecified joint BRYNN SPECIFIC ANTIBODY Routine 06/23/2024 3:18 PM EDT Arthralgia, unspecified joint XR KNEE 4+ VW RIGHT Routine 06/23/2024 3 :11 PM EDT Arthralgia, unspecified joint XR KNEE 4+ VW LEFT Routine 06/23/2024 3: 11 PM EDT Arthralgia, unspecified joint XR KNEE AP/PA BILATERAL STANDING Routine 06/23/2024 3:11 PM EDT Arthralgia, unspecified joint XR FOOT 3+ VW LEFT Routine 06/23/2024 3: 11 PM EDT Arthralgia, unspecified joint XR FOOT 3+ VW RIGHT Routine 06/23/2024 3 :11 PM EDT Arthralgia, unspecified joint XR HAND 3+ VW LEFT Routine 06/23/2024 3: 11 PM EDT Arthralgia, unspecified joint XR HAND 3+ VW RIGHT Routine 06/23/2024 3 :11 PM EDT Arthralgia, unspecified joint XR LUMBAR SPINE 2 OR 3 VIEWS Routine 06/23/2024 3:11 PM EDT Arthralgia, unspecified joint XR THORACIC SPINE 2 VIEWS Routine 06/23/2024 3:11 PM EDT Arthralgia, unspecified joint XR CERVICAL SPINE 2 OR 3 VIEWS Routine 06/23/2024 3:11 PM EDT Arthralgia, unspecified joint AMB EXTERNAL XR KNEE, OUTSIDE RESULT 06/06/2024 LAB - SCANNED 06/02/2024 from Last 3 Months Results * Due to [place] state law, this organization might not be sharing negative HIV tests. * QuantiFERON-TB Gold Plus, 1 Tube (07/18/2024 2:38 PM EDT) [facility] QuantiFERON-TB Gold Plus NEGATIVE NEGATIVE 07/21/2024 12:28 PM EDT [employer] [facility] Comment: Negative test result. M. tuberculosis complex infection unlikely. NIL 0.02 IU/mL 07/21/2024 12:28 PM EDT [facility] [facility] Mitogen-NIL >10.00 IU/mL 07/21/2024 12:28 PM EDT [facility] [facility] TB1-NIL 0.00 IU/mL 07/21/2024 12:28 PM EDT [facility] [facility] TB2-NIL 0.01 IU/mL 07/21/2024 12:28 PM EDT [employer] [facility] Comment: The Nil tube value reflects the background interferon gamma immune response of the patient's blood sample. This value has been subtracted from the patient's displayed TB and Mitogen results. Lower than expected results with the Mitogen tube prevent false-negative Quantiferon readings by detecting a patient with a potential immune suppressive condition and/or suboptimal pre-analytical specimen handling. The TB1 Antigen tube is coated with the M. tuberculosis-specific antigens designed to elicit responses from TB antigen primed CD4+ helper T-lymphocytes. The TB2 Antigen tube is coated with the M. tuberculosis-specific antigens designed to elicit responses from TB antigen primed CD4+ helper and CD8+ cytotoxic T-lymphocytes. For additional information, please refer to https://education.Bilbus.TheStreet/faq/EKQ894 (This link is being provided for informational/ educational purposes only.) Blood Structure of peripheral vein / Unknown Venipuncture / Unknown 07/18/2024 2:38 PM EDT 07/18/2024 3:13 PM EDT Narrative LINDA TORRES - 07/21/2024 12:28 PM EDT [facility] Received Date: Teresa MCKEON LAB BLOOD ORDERABLES Final Result LINDA TORRES [address] [place] [address] [facility] [address] [place] [address], [place] [phone] [employer] [facility] [address], [address] [place] [address], * Hepatitis Panel, Acute (07/18/2024 2:38 PM EDT) Hepatitis A IgM NON-REACT ALTAF NON-REACT ALTAF 07/19/2024 5:31 AM EDT [facility] [facility] Hepatitis B Surface Antigen NON-REACT ALTAF NON-REACT ALTAF 07/19/2024 5:31 AM EDT [facility] [facility] Hepatitis B Core Antibody NON-REACT ALTAF NON-REACT ALTAF 07/19/2024 5:31 AM EDT [facility] [facility] Hepatitis C Antibody NON-REACT ALTAF NON-REACT ALTAF 07/19/2024 5:31 AM EDT [employer] [facility] Comment: HCV antibody was non-reactive. There is no laboratory evidence of HCV infection. In most cases, no further action is required. However, if recent HCV exposure is suspected, a test for HCV RNA (test code 24285) is suggested. For additional information please refer to http://luxustravel.es.[employer]/faq/HBD93a9 (This link is being provided for informational/ educational purposes only.) For additional information, please refer to http://luxustravel.es.[employer]/faq/WET887 (This link is being provided for informational/ educational purposes only.) Blood Structure of peripheral vein / Unknown Venipuncture / Unknown 07/18/2024 2:38 PM EDT 07/18/2024 3:13 PM EDT Narrative LINDA TORRES - 07/19/2024 5:31 AM EDT [facility] Received Date: us Teresa MCKEON LAB BLOOD ORDERABLES Final Result LINDA TORRES [address] [facility] [address] [facility], [address] [place] [address], [place] [phone] [employer] [facility] [address] [facility] [address], [place] [address], [place] [phone] * (ABNORMAL) CBC Auto Differential (06/23/2024 3:18 PM EDT) WBC 6.0 3.8 - 10.8 10*3/uL 06/23/2024 3:40 PM EDT [facility] RBC 3.87 3.80 - 5.10 10*6/uL 06/23/2024 3:40 PM EDT [facility] Hemoglobin 10.5(L) 11.7 - 15.5 g/dL 06/23/2024 3:40 PM EDT [facility] Hematocrit 33.6(L) 35.0 - 45.0 % 06/23/2024 3:40 PM EDT [facility] MCV 86.8 80.0 - 100.0 fL 06/23/2024 3:40 PM EDT [facility] MCH 27.1 27.0 - 33.0 pg 06/23/2024 3:40 PM EDT [facility] MCHC 31.3(L) 32.0 - 36.0 g/dL 06/23/2024 3:40 PM EDT [facility] RDW 15.3(H) 11.0 - 15.0 % 06/23/2024 3:40 PM EDT [facility] Platelets 349 140 - 400 10*3/uL 06/23/2024 3:40 PM EDT [facility] MPV 8.8 7.5 - 12.5 fL 06/23/2024 3:40 PM EDT [facility] Neutrophil % 50.9 % 06/23/2024 3:40 PM EDT [facility] Immature Grans % 0.2 0.0 - 0.9 % 06/23/2024 3:40 PM EDT [facility] Lymphocyte % 31.5 % 06/23/2024 3:40 PM EDT [facility] Monocyte % 14.6 % 06/23/2024 3:40 PM EDT [facility] Eosinophil % 2.3 % 06/23/2024 3:40 PM EDT [facility] Basophil % 0.5 % 06/23/2024 3:40 PM EDT [facility] Neutrophil # 3.07 1.50 - 7.80 10*3/uL 06/23/2024 3:40 PM EDT [facility] Immature Grans # <0.03 <=0.03 10*3/uL 06/23/2024 3:40 PM EDT [facility] Lymphocyte # 1.90 0.85 - 3.90 10*3/uL 06/23/2024 3:40 PM EDT [facility] Monocyte # 0.90 0.20 - 0.95 10*3/uL 06/23/2024 3:40 PM EDT [facility] Eosinophil # 0.10 0.02 - 0.50 10*3/uL 06/23/2024 3:40 PM EDT [facility] Basophil # <0.03 0.00 - 0.20 10*3/uL 06/23/2024 3:40 PM EDT [facility] nRBC % 0.0 /100 WBCs 06/23/2024 3:40 PM EDT [facility] nRBC # <0.01 <0.01 10*3/uL 06/23/2024 3:40 PM EDT [facility] Blood Structure of peripheral vein / Unknown Venipuncture / Unknown 06/23/2024 3:18 PM EDT 06/23/2024 3:31 PM EDT Teresa MCKEON LAB BLOOD ORDERABLES Final Result [facility] [address] [place] [address], [place] * (ABNORMAL) Cyclic Citrullinated Peptide (CCP) Antibody, IgG (06/23/2024 3:18 PM EDT) Cyclic Citrullinated Peptide (CCP) Ab (IgG) 50(H) UNITS 06/25/2024 9:40 AM EDT [facility] Comment: Reference Range Negative: ?<20 Weak Positive: ? 20-39 Moderate Positive: ?? 40-59 Strong Positive: ? >59 Blood Structure of peripheral vein / Unknown Venipuncture / Unknown 06/23/2024 3:18 PM EDT 06/23/2024 3:31 PM EDT [facility] 06/25/2024 9:40 AM EDT [facility] Received Date: Teresa MCKEON LAB BLOOD ORDERABLES Final Result Performing Organization Address City/[facility] Co de Phone Number LINDA KIRKWOOD [address] [facility] [address], [place] [address], [place] [facility] [address] [facility] [address], [place] [address], [place] [phone] * BRYNN Screen, IFA, w/Reflex to Titer & Pattern (06/23/2024 3:18 PM EDT) Pathologist [facility] BRYNN Screen, IFA NEGATIVE NEGATIVE 1:23 PM EDT [facility] Comment: BRYNN IFA is a first line screen for detecting the presence of up to approximately 150 autoantibodies in various autoimmune diseases. A negative BRYNN IFA result suggests an BRYNN-associated autoimmune disease is not present at this time, but is not definitive. If there is high clinical suspicion for Sjogren's syndrome, testing for anti-SS-A/Ro antibody should be considered. Anti-Rubi-1 antibody should be considered for clinically suspected inflammatory myopathies. AC-0: Negative International Consensus on BRYNN Patterns (https://doi.org/10.1515/xoep-7926-0555) For additional information, please refer to http://education.Bolt.io/faq/IVJ557 (This link is being provided for informational/ educational purposes only.) ?? Blood Structure of peripheral vein / Unknown Venipuncture / Unknown 06/23/2024 3:18 PM EDT 06/23/2024 3:31 PM EDT Narrative [facility] - 06/26/2024 1:23 PM EDT [facility] Received Date:[id number] Teresa MCKEON LAB BLOOD ORDERABLES Final Result LINDA KIRKWOOD [address] [facility] [address], [place] [address], [place] [phone] [facility] [facility] [employer] [address] [place] [address], [place] [phone] * (ABNORMAL) Sedimentation rate, automated (06/23/2024 3:18 PM EDT) Sed Rate 88(H) <20 mm/Hr mm/Hr 06/23/2024 3:43 PM EDT [facility] Blood Structure of peripheral vein / Unknown Venipuncture / Unknown 06/23/2024 3:18 PM EDT 06/23/2024 3:31 PM EDT Teresa MCKEON LAB BLOOD ORDERABLES Final Result [facility] [address] [place] [address], * (ABNORMAL) Rheumatoid factor (06/23/2024 3:18 PM EDT) Rheumatoid Factor 207(H) <14 IU/mL 06/24/2024 11:47 AM EDT [employer] [facility] Blood Structure of peripheral vein / Unknown Venipuncture / Unknown 06/23/2024 3:18 PM EDT 06/23/2024 3:31 PM EDT Narrative [facility] - 06/24/2024 11:47 AM EDT [facility] Received Date:[id number] Teresa MCKEON LAB BLOOD ORDERABLES Final Result [facility] [address] [facility] [address], [place] [address], [place] [phone] [employer] [facility] [address] [facility] [address], [place] [address], [place] [phone] * (ABNORMAL) C-reactive protein (06/23/2024 3:18 PM EDT) Pathologist [facility] C Reactive Protein 65.9(H) <=9.9 mg/L 06/23/2024 4:09 PM EDT [facility] Blood Structure of peripheral vein / Unknown Venipuncture / Unknown 06/23/2024 3:18 PM EDT 06/23/2024 3:31 PM EDT Teresa MCKEON LAB BLOOD ORDERABLES Final Result [facility] [address] [place] [address], [place] * BRYNN Specific Antibody w/Reflex to [place] (06/23/2024 3:18 PM EDT) Pathologist [facility] BRYNN Screen, Immunoassay NEGATIVE NEGATIVE 06/25/2024 5:40 AM EDT [employer] [facility] Comment: A negative BRYNN Multiplex indicates the absence of detectable antibodies to component analytes consisting of double stranded DNA (dsDNA), chromatin, ribonucleoprotein (COLLATOR OPERATOR), Pandey/COLLATOR OPERATOR (Sm/COLLATOR OPERATOR), Pandey (Sm), SS-A, SS-B, Rubi-1, centromere B, Scl-70 and ribosomal P. A negative result should be interpreted in the context of the clinical and laboratory findings and does not rule out autoimmune disease characterized by other autoantibody specificities such as rheumatoid arthritis, autoimmune hepatitis, primary biliary cirrhosis, autoimmune thyroiditis, Hartley's disease, pernicious anemia, autoimmune neuropathies, vasculitis, celiac disease, and bullous disease. For additional information, please refer to http://education.Bolt.io/faq/PFY733 (This link is being provided for informational/ educational purposes only.) ?? Blood Structure of peripheral vein / Unknown Venipuncture / Unknown 06/23/2024 3:18 PM EDT 06/23/2024 3:31 PM EDT Narrative [facility] - 06/25/2024 5:40 AM EDT [facility] Received Date: Teresa MCKEON LAB BLOOD ORDERABLES Final Result LINDA KIRKWOOD [address] [facility] [address] [facility], [place] [address], [employer] [facility] [address] [facility] [address], [place] [address], * (ABNORMAL) Comprehensive metabolic panel (06/23/2024 3:18 PM EDT) NA 137 135 - 145 mmol/L 06/23/2024 4:09 PM EDT [facility] K 3.1(L) 3.5 - 5.3 mmol/L 06/23/2024 4:09 PM EDT [facility] Cl 97(L) 98 - 107 mmol/L 06/23/2024 4:09 PM EDT [facility] CO2 27 22 - 32 mmol/L 06/23/2024 4:09 PM EDT [facility] Anion Gap 13 5 - 15 06/23/2024 4:09 PM EDT [facility] Glucose 126(H) 65 - 99 mg/dL 06/23/2024 4:09 PM EDT [facility] Creatinine 0.61 0.50 - 1.20 mg/dL 06/23/2024 4:09 PM [facility] Calcium 9.0 8.6 - 10.5 mg/dL 06/23/2024 4:09 PM [facility] Total Protein 7.7 6.0 - 8.0 g/dL 06/23/2024 4:09 PM [facility] Albumin 3.5 3.5 - 5.2 g/dL 06/23/2024 4:09 PM [facility] Bilirubin, Total 0.4 0.2 - 1.2 mg/dL 06/23/2024 4:09 PM [facility] Alkaline Phosphatase 75 35 - 129 U/L 06/23/2024 4:09 PM [facility] AST 45(H) 10 - 40 U/L 06/23/2024 4:09 PM [facility] ALT 38 10 - 40 U/L 06/23/2024 4:09 PM [facility] BUN 3(L) 7 - 23 mg/dL 06/23/2024 4:09 PM [facility] eGFR >90 >=60 mL/min/1. 73m2 06/23/2024 4:09 PM [facility] Comment:The estimated glomer ular filtration rate (eGFR) is calculated using a new formula developed by the NKF-ASN task force to eliminate race-based correction factors. The new formula uses serum/plasma creatinine, age, and gender to determine eGFR. A value below 60mls/min might indicate kidney disease and will be flagged. For additional information, see Rosalina et al, Am J Kidney Dis. 2021;79(2):268- 288, A Unifying Approach for GFR estimation: Recommendations of the NKF-ASN Task Force on Reassessing the Inclusion of Race in Diagnosing Kidney Disease . Globulin, Total 4.2 2.1 - 4.2 g/dL 06/23/2024 4:09 PM EDT [facility] A/G Ratio 0.8(L) 1.5 - 3.0 06/23/2024 4:09 PM EDT [facility] Blood Structure of peripheral vein / Unknown Venipuncture / Unknown 06/23/2024 3:18 PM EDT 06/23/2024 3:31 PM EDT us Teresa MCKEON LAB BLOOD ORDERABLES Final Result [facility] [address] [place] [address], [place] * X-Ray Foot Right 3+ Views (06/23/2024 3:11 PM EDT) Anatomical Region Laterality Modality Lower Extremities, Foot Right Computed Radiography 06/23/2024 3:18 PM EDT Impressions 06/23/2024 3:38 PM EDT Bilateral hands, severe arthritic changes bilaterally at the wrist joints question CPPD and/or inflammatory arthropathy. IP joints show varying degrees of degenerative changes. Bilateral feet degenerative arthropathy no evidence of inflammatory arthropathy. Bilateral knee joints tricompartmental degenerative arthropathy no acute changes Lumbar spine, mild degenerative changes no acute disease. Thoracic spine mild degenerative changes. C-spine C7 not seen no acute fractures dislocations C1-C6. Mild facet arthropathy If this radiology report contains a blank impression section, it is an incomplete radiology report. ??Please contact the interpreting radiologist or applicable radiology division as soon as possible to obtain the completed interpretation. ? Workstation ID: [id number] Narrative 06/23/2024 3:38 PM EDT COMPARISON: ??There are no prior studies available for comparison at this time. ?? FINDINGS bilateral hand x-rays AP lateral and oblique views. Bilaterally severe generalized osteopenia. Bilaterally arthritic changes of the DRUJ and intercarpal and radiocarpal and some of the carpometacarpal joints within the bony fusion cyst in subtle erosive changes. On the right the first MCP and on the left first and the fifth MCP joints are narrowed related to probable erosion on the fifth metacarpal head on the left. Old healed fracture off the distal fifth metacarpal on the right. Several of the MCP joints show varying degrees of degenerative arthropathy. No evidence of inflammatory arthropathy. No chondrocalcinosis bilaterally. Bilateral feet AP lateral and oblique views moderate to severe osteopenia. Hallux valgus bilaterally associated with the degenerative changes of several of the IP joints. Some of the TMT and intertarsal joints also show varying degrees of degenerative changes with hypertrophic spurs dorsally at the talonavicular joint on the left side. No erosions suggestive off inflammatory arthropathy. No old or recent fractures dislocations or other changes. Bilateral calcaneal spurs. Bilateral knee joints crosstable lateral view AP PA and axial views. Severely osteopenic bony structures joint effusion on the left side bilaterally no acute fractures or dislocations. Bilaterally mild to moderate tricompartmental degenerative arthropathy with the mild narrowing sclerosis and spurs. More advanced in the medial compartments. Loose bodies within the joint. Calcific densities in the right supracondylar region of the femur with the subtle lucency question enchondroma or any other nonaggressive lesion. 3 month follow-up recommended. Lumbar spine AP and lateral upright. Moderate to severe osteopenia paraspinal soft tissues normal. Mild degenerative changes L5 and S1 other disc spaces are within normal limits no acute fractures or dislocations or compressions. Lower facet arthropathy. Thoracic spine AP and lateral upright. Suboptimal evaluation of the individual vertebral bodies particularly within the lateral view. Moderate osteopenia paraspinal soft tissues normal. No acute fractures dislocations. Mild compressions in some of the lower thoracic regions probably chronic. Also mild degenerative disc changes of the mid thoracic region. If a fracture is strongly suspected in the thoracic region recommend CT scan. Cervical spine AP and lateral upright. Loss of lordosis related to muscle spasm. C1-C6 no acute fractures or dislocations or arthropathy. Mild degenerative changes of the facet joints. Resulting Agency Comment [id number] Procedure Note Manuela Snow MD - 06/23/2024 COMPARISON: There are no prior studies available for comparison at thistime. FINDINGS bilateral hand x-rays AP lateral and oblique views. Bilaterally severegeneralized osteopenia. Bilaterally arthritic changes of the DRUJ and intercarpal and [place] some of the carpometacarpal joints within the bony fusion cyst insubtle erosive changes. On the right the first MCP and on the left first and the fifth MCP jointsare narrowed related to probable erosion on the fifth metacarpal head onthe left. Old healed fracture off the distal fifth metacarpal on the right. Severalof the MCP joints show varying degrees of degenerative arthropathy. Noevidence of inflammatory arthropathy. No chondrocalcinosis bilaterally. Bilateral feet AP lateral and oblique views moderate to severe osteopenia.Hallux valgus bilaterally associated with the degenerative changes ofseveral of the IP joints. Some of the TMT and intertarsal joints also showvarying degrees of degenerative changes with hypertrophic spurs dorsally at thetalonavicular joint on the left side. No erosions suggestive off inflammatory arthropathy. No old or recentfractures dislocations or other changes. Bilateral calcaneal spurs. Bilateral knee joints crosstable lateral view AP PA and axial views. Severely osteopenic bony structures joint effusion on the left sidebilaterally no acute fractures or dislocations. Bilaterally mild to moderate tricompartmental degenerative arthropathywith the mild narrowing sclerosis and spurs. More advanced in the medialcompartments. Loose bodies within the joint. Calcific densities in the rightsupracondylar region of the femur with the subtle lucency questionenchondroma or any other nonaggressive lesion. 3 month follow-uprecommended. Lumbar spine AP and lateral upright. Moderate to severe osteopenia paraspinal soft tissues normal. Milddegenerative changes L5 and S1 other disc spaces are within normal limitsno acute fractures or dislocations or compressions. Lower facetarthropathy. Thoracic spine AP and lateral upright. Suboptimal evaluation of theindividual vertebral bodies particularly within the lateral view. Moderate osteopenia paraspinal soft tissues normal. No acute fracturesdislocations. Mild compressions in some of the lower thoracic regionsprobably chronic. Also mild degenerative disc changes of the mid thoracic region. If afracture is strongly suspected in the thoracic region recommend CT scan. Cervical spine AP and lateral upright. Loss of lordosis related to musclespasm. C1-C6 no acute fractures or dislocations or arthropathy. Mild degenerativechanges of the facet joints. IMPRESSION: Bilateral hands, severe arthritic changes bilaterally at the wrist jointsquestion CPPD and/or inflammatory arthropathy. IP joints show varyingdegrees of degenerative changes. Bilateral feet degenerative arthropathy no evidence of inflammatoryarthropathy. Bilateral knee joints tricompartmental degenerative arthropathy no acutechanges Lumbar spine, mild degenerative changes no acute disease. Thoracic spinemild degenerative changes. C-spine C7 not seen no acute fractures dislocations C1-C6. Mild facetarthropathy If this radiology report contains a blank impression section, it is anincomplete radiology report. Please contact the interpreting radiologistor applicable radiology division as soon as possible to obtain thecompleted interpretation. Workstation ID: [id number] us Teresa [facility]KE[facility] IMG XR PROCEDURES Final Re sult * X-Ray Foot Left 3+ Views (06/23/2024 3:11 PM EDT) Anatomical Region Laterality Modality Lower Extremities, Foot Left Computed Radiography 06/23/2024 3:18 PM EDT Impressions 06/23/2024 3:38 PM EDT Bilateral hands, severe arthritic changes bilaterally at the wrist joints question CPPD and/or inflammatory arthropathy. IP joints show varying degrees of degenerative changes. Bilateral feet degenerative arthropathy no evidence of inflammatory arthropathy. Bilateral knee joints tricompartmental degenerative arthropathy no acute changes Lumbar spine, mild degenerative changes no acute disease. Thoracic spine mild degenerative changes. C-spine C7 not seen no acute fractures dislocations C1-C6. Mild facet arthropathy If this radiology report contains a blank impression section, it is an incomplete radiology report. ??Please contact the interpreting radiologist or applicable radiology division as soon as possible to obtain the completed interpretation. ? Workstation ID: [id number] Narrative 06/23/2024 3:38 PM EDT COMPARISON: ??There are no prior studies available for comparison at this time. ?? FINDINGS bilateral hand x-rays AP lateral and oblique views. Bilaterally severe generalized osteopenia. Bilaterally arthritic changes of the DRUJ and intercarpal and radiocarpal and some of the carpometacarpal joints within the bony fusion cyst in subtle erosive changes. On the right the first MCP and on the left first and the fifth MCP joints are narrowed related to probable erosion on the fifth metacarpal head on the left. Old healed fracture off the distal fifth metacarpal on the right. Several of the MCP joints show varying degrees of degenerative arthropathy. No evidence of inflammatory arthropathy. No chondrocalcinosis bilaterally. Bilateral feet AP lateral and oblique views moderate to severe osteopenia. Hallux valgus bilaterally associated with the degenerative changes of several of the IP joints. Some of the TMT and intertarsal joints also show varying degrees of degenerative changes with hypertrophic spurs dorsally at the talonavicular joint on the left side. No erosions suggestive off inflammatory arthropathy. No old or recent fractures dislocations or other changes. Bilateral calcaneal spurs. Bilateral knee joints crosstable lateral view AP PA and axial views. Severely osteopenic bony structures joint effusion on the left side bilaterally no acute fractures or dislocations. Bilaterally mild to moderate tricompartmental degenerative arthropathy with the mild narrowing sclerosis and spurs. More advanced in the medial compartments. Loose bodies within the joint. Calcific densities in the right supracondylar region of the femur with the subtle lucency question enchondroma or any other nonaggressive lesion. 3 month follow-up recommended. Lumbar spine AP and lateral upright. Moderate to severe osteopenia paraspinal soft tissues normal. Mild degenerative changes L5 and S1 other disc spaces are within normal limits no acute fractures or dislocations or compressions. Lower facet arthropathy. Thoracic spine AP and lateral upright. Suboptimal evaluation of the individual vertebral bodies particularly within the lateral view. Moderate osteopenia paraspinal soft tissues normal. No acute fractures dislocations. Mild compressions in some of the lower thoracic regions probably chronic. Also mild degenerative disc changes of the mid thoracic region. If a fracture is strongly suspected in the thoracic region recommend CT scan. Cervical spine AP and lateral upright. Loss of lordosis related to muscle spasm. C1-C6 no acute fractures or dislocations or arthropathy. Mild degenerative changes of the facet joints. Resulting Agency Comment [id number] Procedure Note Manuela Snow MD - 06/23/2024 COMPARISON: There are no prior studies available for comparison at thistime. FINDINGS bilateral hand x-rays AP lateral and oblique views. Bilaterally severegeneralized osteopenia. Bilaterally arthritic changes of the DRUJ and intercarpal and [place] some of the carpometacarpal joints within the bony fusion cyst insubtle erosive changes. On the right the first MCP and on the left first and the fifth MCP jointsare narrowed related to probable erosion on the fifth metacarpal head onthe left. Old healed fracture off the distal fifth metacarpal on the right. Severalof the MCP joints show varying degrees of degenerative arthropathy. Noevidence of inflammatory arthropathy. No chondrocalcinosis bilaterally. Bilateral feet AP lateral and oblique views moderate to severe osteopenia.Hallux valgus bilaterally associated with the degenerative changes ofseveral of the IP joints. Some of the TMT and intertarsal joints also showvarying degrees of degenerative changes with hypertrophic spurs dorsally at thetalonavicular joint on the left side. No erosions suggestive off inflammatory arthropathy. No old or recentfractures dislocations or other changes. Bilateral calcaneal spurs. Bilateral knee joints crosstable lateral view AP PA and axial views. Severely osteopenic bony structures joint effusion on the left sidebilaterally no acute fractures or dislocations. Bilaterally mild to moderate tricompartmental degenerative arthropathywith the mild narrowing sclerosis and spurs. More advanced in the medialcompartments. Loose bodies within the joint. Calcific densities in the rightsupracondylar region of the femur with the subtle lucency questionenchondroma or any other nonaggressive lesion. 3 month follow-uprecommended. Lumbar spine AP and lateral upright. Moderate to severe osteopenia paraspinal soft tissues normal. Milddegenerative changes L5 and S1 other disc spaces are within normal limitsno acute fractures or dislocations or compressions. Lower facetarthropathy. Thoracic spine AP and lateral upright. Suboptimal evaluation of theindividual vertebral bodies particularly within the lateral view. Moderate osteopenia paraspinal soft tissues normal. No acute fracturesdislocations. Mild compressions in some of the lower thoracic regionsprobably chronic. Also mild degenerative disc changes of the mid thoracic region. If afracture is strongly suspected in the thoracic region recommend CT scan. Cervical spine AP and lateral upright. Loss of lordosis related to musclespasm. C1-C6 no acute fractures or dislocations or arthropathy. Mild degenerativechanges of the facet joints. IMPRESSION: Bilateral hands, severe arthritic changes bilaterally at the wrist jointsquestion CPPD and/or inflammatory arthropathy. IP joints show varyingdegrees of degenerative changes. Bilateral feet degenerative arthropathy no evidence of inflammatoryarthropathy. Bilateral knee joints tricompartmental degenerative arthropathy no acutechanges Lumbar spine, mild degenerative changes no acute disease. Thoracic spinemild degenerative changes. C-spine C7 not seen no acute fractures dislocations C1-C6. Mild facetarthropathy If this radiology report contains a blank impression section, it is anincomplete radiology report. Please contact the interpreting radiologistor applicable radiology division as soon as possible to obtain thecompleted interpretation. Workstation ID: [id number] us Teresa Mehta PA IMG XR PROCEDURES Final Re sult * XR Knee AP/PA Bilateral Standing (06/23/2024 3:11 PM EDT) Anatomical Region Laterality Modality Lower Extremities, Knee Bilateral Computed Radiography 06/23/2024 3:18 PM EDT Impressions 06/23/2024 3:38 PM EDT Bilateral hands, severe arthritic changes bilaterally at the wrist joints question CPPD and/or inflammatory arthropathy. IP joints show varying degrees of degenerative changes. Bilateral feet degenerative arthropathy no evidence of inflammatory arthropathy. Bilateral knee joints tricompartmental degenerative arthropathy no acute changes Lumbar spine, mild degenerative changes no acute disease. Thoracic spine mild degenerative changes. C-spine C7 not seen no acute fractures dislocations C1-C6. Mild facet arthropathy If this radiology report contains a blank impression section, it is an incomplete radiology report. ??Please contact the interpreting radiologist or applicable radiology division as soon as possible to obtain the completed interpretation. ? Workstation ID: [id number] Narrative 06/23/2024 3:38 PM EDT COMPARISON: ??There are no prior studies available for comparison at this time. ?? FINDINGS bilateral hand x-rays AP lateral and oblique views. Bilaterally severe generalized osteopenia. Bilaterally arthritic changes of the DRUJ and intercarpal and radiocarpal and some of the carpometacarpal joints within the bony fusion cyst in subtle erosive changes. On the right the first MCP and on the left first and the fifth MCP joints are narrowed related to probable erosion on the fifth metacarpal head on the left. Old healed fracture off the distal fifth metacarpal on the right. Several of the MCP joints show varying degrees of degenerative arthropathy. No evidence of inflammatory arthropathy. No chondrocalcinosis bilaterally. Bilateral feet AP lateral and oblique views moderate to severe osteopenia. Hallux valgus bilaterally associated with the degenerative changes of several of the IP joints. Some of the TMT and intertarsal joints also show varying degrees of degenerative changes with hypertrophic spurs dorsally at the talonavicular joint on the left side. No erosions suggestive off inflammatory arthropathy. No old or recent fractures dislocations or other changes. Bilateral calcaneal spurs. Bilateral knee joints crosstable lateral view AP PA and axial views. Severely osteopenic bony structures joint effusion on the left side bilaterally no acute fractures or dislocations. Bilaterally mild to moderate tricompartmental degenerative arthropathy with the mild narrowing sclerosis and spurs. More advanced in the medial compartments. Loose bodies within the joint. Calcific densities in the right supracondylar region of the femur with the subtle lucency question enchondroma or any other nonaggressive lesion. 3 month follow-up recommended. Lumbar spine AP and lateral upright. Moderate to severe osteopenia paraspinal soft tissues normal. Mild degenerative changes L5 and S1 other disc spaces are within normal limits no acute fractures or dislocations or compressions. Lower facet arthropathy. Thoracic spine AP and lateral upright. Suboptimal evaluation of the individual vertebral bodies particularly within the lateral view. Moderate osteopenia paraspinal soft tissues normal. No acute fractures dislocations. Mild compressions in some of the lower thoracic regions probably chronic. Also mild degenerative disc changes of the mid thoracic region. If a fracture is strongly suspected in the thoracic region recommend CT scan. Cervical spine AP and lateral upright. Loss of lordosis related to muscle spasm. C1-C6 no acute fractures or dislocations or arthropathy. Mild degenerative changes of the facet joints. Resulting Agency Comment [id number] Procedure Note Manuela Snow MD - 06/23/2024 COMPARISON: There are no prior studies available for comparison at thistime. FINDINGS bilateral hand x-rays AP lateral and oblique views. Bilaterally severegeneralized osteopenia. Bilaterally arthritic changes of the DRUJ and intercarpal and [place] some of the carpometacarpal joints within the bony fusion cyst insubtle erosive changes. On the right the first MCP and on the left first and the fifth MCP jointsare narrowed related to probable erosion on the fifth metacarpal head onthe left. Old healed fracture off the distal fifth metacarpal on the right. Severalof the MCP joints show varying degrees of degenerative arthropathy. Noevidence of inflammatory arthropathy. No chondrocalcinosis bilaterally. Bilateral feet AP lateral and oblique views moderate to severe osteopenia.Hallux valgus bilaterally associated with the degenerative changes ofseveral of the IP joints. Some of the TMT and intertarsal joints also showvarying degrees of degenerative changes with hypertrophic spurs dorsally at thetalonavicular joint on the left side. No erosions suggestive off inflammatory arthropathy. No old or recentfractures dislocations or other changes. Bilateral calcaneal spurs. Bilateral knee joints crosstable lateral view AP PA and axial views. Severely osteopenic bony structures joint effusion on the left sidebilaterally no acute fractures or dislocations. Bilaterally mild to moderate tricompartmental degenerative arthropathywith the mild narrowing sclerosis and spurs. More advanced in the medialcompartments. Loose bodies within the joint. Calcific densities in the rightsupracondylar region of the femur with the subtle lucency questionenchondroma or any other nonaggressive lesion. 3 month follow-uprecommended. Lumbar spine AP and lateral upright. Moderate to severe osteopenia paraspinal soft tissues normal. Milddegenerative changes L5 and S1 other disc spaces are within normal limitsno acute fractures or dislocations or compressions. Lower facetarthropathy. Thoracic spine AP and lateral upright. Suboptimal evaluation of theindividual vertebral bodies particularly within the lateral view. Moderate osteopenia paraspinal soft tissues normal. No acute fracturesdislocations. Mild compressions in some of the lower thoracic regionsprobably chronic. Also mild degenerative disc changes of the mid thoracic region. If afracture is strongly suspected in the thoracic region recommend CT scan. Cervical spine AP and lateral upright. Loss of lordosis related to musclespasm. C1-C6 no acute fractures or dislocations or arthropathy. Mild degenerativechanges of the facet joints. IMPRESSION: Bilateral hands, severe arthritic changes bilaterally at the wrist jointsquestion CPPD and/or inflammatory arthropathy. IP joints show varyingdegrees of degenerative changes. Bilateral feet degenerative arthropathy no evidence of inflammatoryarthropathy. Bilateral knee joints tricompartmental degenerative arthropathy no acutechanges Lumbar spine, mild degenerative changes no acute disease. Thoracic spinemild degenerative changes. C-spine C7 not seen no acute fractures dislocations C1-C6. Mild facetarthropathy If this radiology report contains a blank impression section, it is anincomplete radiology report. Please contact the interpreting radiologistor applicable radiology division as soon as possible to obtain thecompleted interpretation. Workstation ID: [id number] us Teresa [facility]KE[facility] IMG XR PROCEDURES Final Re sult * X-Ray Knee Right 4+ Views (06/23/2024 3:11 PM EDT) Anatomical Region Laterality Modality Lower Extremities, Knee Right Computed Radiography 06/23/2024 3:18 PM EDT Impressions 06/23/2024 3:38 PM EDT Bilateral hands, severe arthritic changes bilaterally at the wrist joints question CPPD and/or inflammatory arthropathy. IP joints show varying degrees of degenerative changes. Bilateral feet degenerative arthropathy no evidence of inflammatory arthropathy. Bilateral knee joints tricompartmental degenerative arthropathy no acute changes Lumbar spine, mild degenerative changes no acute disease. Thoracic spine mild degenerative changes. C-spine C7 not seen no acute fractures dislocations C1-C6. Mild facet arthropathy If this radiology report contains a blank impression section, it is an incomplete radiology report. ??Please contact the interpreting radiologist or applicable radiology division as soon as possible to obtain the completed interpretation. ? Workstation ID: [id number] Narrative 06/23/2024 3:38 PM EDT COMPARISON: ??There are no prior studies available for comparison at this time. ?? FINDINGS bilateral hand x-rays AP lateral and oblique views. Bilaterally severe generalized osteopenia. Bilaterally arthritic changes of the DRUJ and intercarpal and radiocarpal and some of the carpometacarpal joints within the bony fusion cyst in subtle erosive changes. On the right the first MCP and on the left first and the fifth MCP joints are narrowed related to probable erosion on the fifth metacarpal head on the left. Old healed fracture off the distal fifth metacarpal on the right. Several of the MCP joints show varying degrees of degenerative arthropathy. No evidence of inflammatory arthropathy. No chondrocalcinosis bilaterally. Bilateral feet AP lateral and oblique views moderate to severe osteopenia. Hallux valgus bilaterally associated with the degenerative changes of several of the IP joints. Some of the TMT and intertarsal joints also show varying degrees of degenerative changes with hypertrophic spurs dorsally at the talonavicular joint on the left side. No erosions suggestive off inflammatory arthropathy. No old or recent fractures dislocations or other changes. Bilateral calcaneal spurs. Bilateral knee joints crosstable lateral view AP PA and axial views. Severely osteopenic bony structures joint effusion on the left side bilaterally no acute fractures or dislocations. Bilaterally mild to moderate tricompartmental degenerative arthropathy with the mild narrowing sclerosis and spurs. More advanced in the medial compartments. Loose bodies within the joint. Calcific densities in the right supracondylar region of the femur with the subtle lucency question enchondroma or any other nonaggressive lesion. 3 month follow-up recommended. Lumbar spine AP and lateral upright. Moderate to severe osteopenia paraspinal soft tissues normal. Mild degenerative changes L5 and S1 other disc spaces are within normal limits no acute fractures or dislocations or compressions. Lower facet arthropathy. Thoracic spine AP and lateral upright. Suboptimal evaluation of the individual vertebral bodies particularly within the lateral view. Moderate osteopenia paraspinal soft tissues normal. No acute fractures dislocations. Mild compressions in some of the lower thoracic regions probably chronic. Also mild degenerative disc changes of the mid thoracic region. If a fracture is strongly suspected in the thoracic region recommend CT scan. Cervical spine AP and lateral upright. Loss of lordosis related to muscle spasm. C1-C6 no acute fractures or dislocations or arthropathy. Mild degenerative changes of the facet joints. Resulting Agency Comment [id number] Procedure Note Manuela Snow MD - 06/23/2024 COMPARISON: There are no prior studies available for comparison at thistime. FINDINGS bilateral hand x-rays AP lateral and oblique views. Bilaterally severegeneralized osteopenia. Bilaterally arthritic changes of the DRUJ and intercarpal and [place] some of the carpometacarpal joints within the bony fusion cyst insubtle erosive changes. On the right the first MCP and on the left first and the fifth MCP jointsare narrowed related to probable erosion on the fifth metacarpal head onthe left. Old healed fracture off the distal fifth metacarpal on the right. Severalof the MCP joints show varying degrees of degenerative arthropathy. Noevidence of inflammatory arthropathy. No chondrocalcinosis bilaterally. Bilateral feet AP lateral and oblique views moderate to severe osteopenia.Hallux valgus bilaterally associated with the degenerative changes ofseveral of the IP joints. Some of the TMT and intertarsal joints also showvarying degrees of degenerative changes with hypertrophic spurs dorsally at thetalonavicular joint on the left side. No erosions suggestive off inflammatory arthropathy. No old or recentfractures dislocations or other changes. Bilateral calcaneal spurs. Bilateral knee joints crosstable lateral view AP PA and axial views. Severely osteopenic bony structures joint effusion on the left sidebilaterally no acute fractures or dislocations. Bilaterally mild to moderate tricompartmental degenerative arthropathywith the mild narrowing sclerosis and spurs. More advanced in the medialcompartments. Loose bodies within the joint. Calcific densities in the rightsupracondylar region of the femur with the subtle lucency questionenchondroma or any other nonaggressive lesion. 3 month follow-uprecommended. Lumbar spine AP and lateral upright. Moderate to severe osteopenia paraspinal soft tissues normal. Milddegenerative changes L5 and S1 other disc spaces are within normal limitsno acute fractures or dislocations or compressions. Lower facetarthropathy. Thoracic spine AP and lateral upright. Suboptimal evaluation of theindividual vertebral bodies particularly within the lateral view. Moderate osteopenia paraspinal soft tissues normal. No acute fracturesdislocations. Mild compressions in some of the lower thoracic regionsprobably chronic. Also mild degenerative disc changes of the mid thoracic region. If afracture is strongly suspected in the thoracic region recommend CT scan. Cervical spine AP and lateral upright. Loss of lordosis related to musclespasm. C1-C6 no acute fractures or dislocations or arthropathy. Mild degenerativechanges of the facet joints. IMPRESSION: Bilateral hands, severe arthritic changes bilaterally at the wrist jointsquestion CPPD and/or inflammatory arthropathy. IP joints show varyingdegrees of degenerative changes. Bilateral feet degenerative arthropathy no evidence of inflammatoryarthropathy. Bilateral knee joints tricompartmental degenerative arthropathy no acutechanges Lumbar spine, mild degenerative changes no acute disease. Thoracic spinemild degenerative changes. C-spine C7 not seen no acute fractures dislocations C1-C6. Mild facetarthropathy If this radiology report contains a blank impression section, it is anincomplete radiology report. Please contact the interpreting radiologistor applicable radiology division as soon as possible to obtain thecompleted interpretation. Workstation ID: [id number] [facility] IM[facility] XR PROCEDURES Final Re sult * X-Ray Knee Left 4+ Views (06/23/2024 3:11 PM EDT) Anatomical Region Laterality Modality Lower Extremities, Knee Left Computed Radiography 06/23/2024 3:18 PM EDT Impressions 06/23/2024 3:38 PM EDT Bilateral hands, severe arthritic changes bilaterally at the wrist joints question CPPD and/or inflammatory arthropathy. IP joints show varying degrees of degenerative changes. Bilateral feet degenerative arthropathy no evidence of inflammatory arthropathy. Bilateral knee joints tricompartmental degenerative arthropathy no acute changes Lumbar spine, mild degenerative changes no acute disease. Thoracic spine mild degenerative changes. C-spine C7 not seen no acute fractures dislocations C1-C6. Mild facet arthropathy If this radiology report contains a blank impression section, it is an incomplete radiology report. ??Please contact the interpreting radiologist or applicable radiology division as soon as possible to obtain the completed interpretation. ? Workstation ID: [id number] Narrative 06/23/2024 3:38 PM EDT COMPARISON: ??There are no prior studies available for comparison at this time. ?? FINDINGS bilateral hand x-rays AP lateral and oblique views. Bilaterally severe generalized osteopenia. Bilaterally arthritic changes of the DRUJ and intercarpal and radiocarpal and some of the carpometacarpal joints within the bony fusion cyst in subtle erosive changes. On the right the first MCP and on the left first and the fifth MCP joints are narrowed related to probable erosion on the fifth metacarpal head on the left. Old healed fracture off the distal fifth metacarpal on the right. Several of the MCP joints show varying degrees of degenerative arthropathy. No evidence of inflammatory arthropathy. No chondrocalcinosis bilaterally. Bilateral feet AP lateral and oblique views moderate to severe osteopenia. Hallux valgus bilaterally associated with the degenerative changes of several of the IP joints. Some of the TMT and intertarsal joints also show varying degrees of degenerative changes with hypertrophic spurs dorsally at the talonavicular joint on the left side. No erosions suggestive off inflammatory arthropathy. No old or recent fractures dislocations or other changes. Bilateral calcaneal spurs. Bilateral knee joints crosstable lateral view AP PA and axial views. Severely osteopenic bony structures joint effusion on the left side bilaterally no acute fractures or dislocations. Bilaterally mild to moderate tricompartmental degenerative arthropathy with the mild narrowing sclerosis and spurs. More advanced in the medial compartments. Loose bodies within the joint. Calcific densities in the right supracondylar region of the femur with the subtle lucency question enchondroma or any other nonaggressive lesion. 3 month follow-up recommended. Lumbar spine AP and lateral upright. Moderate to severe osteopenia paraspinal soft tissues normal. Mild degenerative changes L5 and S1 other disc spaces are within normal limits no acute fractures or dislocations or compressions. Lower facet arthropathy. Thoracic spine AP and lateral upright. Suboptimal evaluation of the individual vertebral bodies particularly within the lateral view. Moderate osteopenia paraspinal soft tissues normal. No acute fractures dislocations. Mild compressions in some of the lower thoracic regions probably chronic. Also mild degenerative disc changes of the mid thoracic region. If a fracture is strongly suspected in the thoracic region recommend CT scan. Cervical spine AP and lateral upright. Loss of lordosis related to muscle spasm. C1-C6 no acute fractures or dislocations or arthropathy. Mild degenerative changes of the facet joints. Resulting Agency Comment [id number] Procedure Note Manuela Snow MD - 06/23/2024 COMPARISON: There are no prior studies available for comparison at thistime. FINDINGS bilateral hand x-rays AP lateral and oblique views. Bilaterally severegeneralized osteopenia. Bilaterally arthritic changes of the DRUJ and intercarpal and [place] some of the carpometacarpal joints within the bony fusion cyst insubtle erosive changes. On the right the first MCP and on the left first and the fifth MCP jointsare narrowed related to probable erosion on the fifth metacarpal head onthe left. Old healed fracture off the distal fifth metacarpal on the right. Severalof the MCP joints show varying degrees of degenerative arthropathy. Noevidence of inflammatory arthropathy. No chondrocalcinosis bilaterally. Bilateral feet AP lateral and oblique views moderate to severe osteopenia.Hallux valgus bilaterally associated with the degenerative changes ofseveral of the IP joints. Some of the TMT and intertarsal joints also showvarying degrees of degenerative changes with hypertrophic spurs dorsally at thetalonavicular joint on the left side. No erosions suggestive off inflammatory arthropathy. No old or recentfractures dislocations or other changes. Bilateral calcaneal spurs. Bilateral knee joints crosstable lateral view AP PA and axial views. Severely osteopenic bony structures joint effusion on the left sidebilaterally no acute fractures or dislocations. Bilaterally mild to moderate tricompartmental degenerative arthropathywith the mild narrowing sclerosis and spurs. More advanced in the medialcompartments. Loose bodies within the joint. Calcific densities in the rightsupracondylar region of the femur with the subtle lucency questionenchondroma or any other nonaggressive lesion. 3 month follow-uprecommended. Lumbar spine AP and lateral upright. Moderate to severe osteopenia paraspinal soft tissues normal. Milddegenerative changes L5 and S1 other disc spaces are within normal limitsno acute fractures or dislocations or compressions. Lower facetarthropathy. Thoracic spine AP and lateral upright. Suboptimal evaluation of theindividual vertebral bodies particularly within the lateral view. Moderate osteopenia paraspinal soft tissues normal. No acute fracturesdislocations. Mild compressions in some of the lower thoracic regionsprobably chronic. Also mild degenerative disc changes of the mid thoracic region. If afracture is strongly suspected in the thoracic region recommend CT scan. Cervical spine AP and lateral upright. Loss of lordosis related to musclespasm. C1-C6 no acute fractures or dislocations or arthropathy. Mild degenerativechanges of the facet joints. IMPRESSION: Bilateral hands, severe arthritic changes bilaterally at the wrist jointsquestion CPPD and/or inflammatory arthropathy. IP joints show varyingdegrees of degenerative changes. Bilateral feet degenerative arthropathy no evidence of inflammatoryarthropathy. Bilateral knee joints tricompartmental degenerative arthropathy no acutechanges Lumbar spine, mild degenerative changes no acute disease. Thoracic spinemild degenerative changes. C-spine C7 not seen no acute fractures dislocations C1-C6. Mild facetarthropathy If this radiology report contains a blank impression section, it is anincomplete radiology report. Please contact the interpreting radiologistor applicable radiology division as soon as possible to obtain thecompleted interpretation. Workstation ID: [id number] [facility] XR PROCEDURES Final Re sult * X-Ray Hand Right 3+ Views (06/23/2024 3:11 PM EDT) Anatomical Region Laterality Modality Upper Extremities, Hand Right Computed Radiography 06/23/2024 3:18 PM EDT Impressions 06/23/2024 3:38 PM EDT Bilateral hands, severe arthritic changes bilaterally at the wrist joints question CPPD and/or inflammatory arthropathy. IP joints show varying degrees of degenerative changes. Bilateral feet degenerative arthropathy no evidence of inflammatory arthropathy. Bilateral knee joints tricompartmental degenerative arthropathy no acute changes Lumbar spine, mild degenerative changes no acute disease. Thoracic spine mild degenerative changes. C-spine C7 not seen no acute fractures dislocations C1-C6. Mild facet arthropathy If this radiology report contains a blank impression section, it is an incomplete radiology report. ??Please contact the interpreting radiologist or applicable radiology division as soon as possible to obtain the completed interpretation. ? Workstation ID: [id number] Narrative 06/23/2024 3:38 PM EDT COMPARISON: ??There are no prior studies available for comparison at this time. ?? FINDINGS bilateral hand x-rays AP lateral and oblique views. Bilaterally severe generalized osteopenia. Bilaterally arthritic changes of the DRUJ and intercarpal and radiocarpal and some of the carpometacarpal joints within the bony fusion cyst in subtle erosive changes. On the right the first MCP and on the left first and the fifth MCP joints are narrowed related to probable erosion on the fifth metacarpal head on the left. Old healed fracture off the distal fifth metacarpal on the right. Several of the MCP joints show varying degrees of degenerative arthropathy. No evidence of inflammatory arthropathy. No chondrocalcinosis bilaterally. Bilateral feet AP lateral and oblique views moderate to severe osteopenia. Hallux valgus bilaterally associated with the degenerative changes of several of the IP joints. Some of the TMT and intertarsal joints also show varying degrees of degenerative changes with hypertrophic spurs dorsally at the talonavicular joint on the left side. No erosions suggestive off inflammatory arthropathy. No old or recent fractures dislocations or other changes. Bilateral calcaneal spurs. Bilateral knee joints crosstable lateral view AP PA and axial views. Severely osteopenic bony structures joint effusion on the left side bilaterally no acute fractures or dislocations. Bilaterally mild to moderate tricompartmental degenerative arthropathy with the mild narrowing sclerosis and spurs. More advanced in the medial compartments. Loose bodies within the joint. Calcific densities in the right supracondylar region of the femur with the subtle lucency question enchondroma or any other nonaggressive lesion. 3 month follow-up recommended. Lumbar spine AP and lateral upright. Moderate to severe osteopenia paraspinal soft tissues normal. Mild degenerative changes L5 and S1 other disc spaces are within normal limits no acute fractures or dislocations or compressions. Lower facet arthropathy. Thoracic spine AP and lateral upright. Suboptimal evaluation of the individual vertebral bodies particularly within the lateral view. Moderate osteopenia paraspinal soft tissues normal. No acute fractures dislocations. Mild compressions in some of the lower thoracic regions probably chronic. Also mild degenerative disc changes of the mid thoracic region. If a fracture is strongly suspected in the thoracic region recommend CT scan. Cervical spine AP and lateral upright. Loss of lordosis related to muscle spasm. C1-C6 no acute fractures or dislocations or arthropathy. Mild degenerative changes of the facet joints. Resulting Agency Comment [id number] Procedure Note Manuela Snow MD - 06/23/2024 COMPARISON: There are no prior studies available for comparison at thistime. FINDINGS bilateral hand x-rays AP lateral and oblique views. Bilaterally severegeneralized osteopenia. Bilaterally arthritic changes of the DRUJ and intercarpal and [place] some of the carpometacarpal joints within the bony fusion cyst insubtle erosive changes. On the right the first MCP and on the left first and the fifth MCP jointsare narrowed related to probable erosion on the fifth metacarpal head onthe left. Old healed fracture off the distal fifth metacarpal on the right. Severalof the MCP joints show varying degrees of degenerative arthropathy. Noevidence of inflammatory arthropathy. No chondrocalcinosis bilaterally. Bilateral feet AP lateral and oblique views moderate to severe osteopenia.Hallux valgus bilaterally associated with the degenerative changes ofseveral of the IP joints. Some of the TMT and intertarsal joints also showvarying degrees of degenerative changes with hypertrophic spurs dorsally at thetalonavicular joint on the left side. No erosions suggestive off inflammatory arthropathy. No old or recentfractures dislocations or other changes. Bilateral calcaneal spurs. Bilateral knee joints crosstable lateral view AP PA and axial views. Severely osteopenic bony structures joint effusion on the left sidebilaterally no acute fractures or dislocations. Bilaterally mild to moderate tricompartmental degenerative arthropathywith the mild narrowing sclerosis and spurs. More advanced in the medialcompartments. Loose bodies within the joint. Calcific densities in the rightsupracondylar region of the femur with the subtle lucency questionenchondroma or any other nonaggressive lesion. 3 month follow-uprecommended. Lumbar spine AP and lateral upright. Moderate to severe osteopenia paraspinal soft tissues normal. Milddegenerative changes L5 and S1 other disc spaces are within normal limitsno acute fractures or dislocations or compressions. Lower facetarthropathy. Thoracic spine AP and lateral upright. Suboptimal evaluation of theindividual vertebral bodies particularly within the lateral view. Moderate osteopenia paraspinal soft tissues normal. No acute fracturesdislocations. Mild compressions in some of the lower thoracic regionsprobably chronic. Also mild degenerative disc changes of the mid thoracic region. If afracture is strongly suspected in the thoracic region recommend CT scan. Cervical spine AP and lateral upright. Loss of lordosis related to musclespasm. C1-C6 no acute fractures or dislocations or arthropathy. Mild degenerativechanges of the facet joints. IMPRESSION: Bilateral hands, severe arthritic changes bilaterally at the wrist jointsquestion CPPD and/or inflammatory arthropathy. IP joints show varyingdegrees of degenerative changes. Bilateral feet degenerative arthropathy no evidence of inflammatoryarthropathy. Bilateral knee joints tricompartmental degenerative arthropathy no acutechanges Lumbar spine, mild degenerative changes no acute disease. Thoracic spinemild degenerative changes. C-spine C7 not seen no acute fractures dislocations C1-C6. Mild facetarthropathy If this radiology report contains a blank impression section, it is anincomplete radiology report. Please contact the interpreting radiologistor applicable radiology division as soon as possible to obtain thecompleted interpretation. Workstation ID: [id number] [facility] XR PROCEDURES Final Re sult * X-Ray Hand Left 3+ Views (06/23/2024 3:11 PM EDT) Anatomical Region Laterality Modality Upper Extremities, Hand Left Computed Radiography 06/23/2024 3:18 PM EDT Impressions 06/23/2024 3:38 PM EDT Bilateral hands, severe arthritic changes bilaterally at the wrist joints question CPPD and/or inflammatory arthropathy. IP joints show varying degrees of degenerative changes. Bilateral feet degenerative arthropathy no evidence of inflammatory arthropathy. Bilateral knee joints tricompartmental degenerative arthropathy no acute changes Lumbar spine, mild degenerative changes no acute disease. Thoracic spine mild degenerative changes. C-spine C7 not seen no acute fractures dislocations C1-C6. Mild facet arthropathy If this radiology report contains a blank impression section, it is an incomplete radiology report. ??Please contact the interpreting radiologist or applicable radiology division as soon as possible to obtain the completed interpretation. ? Workstation ID: [id number] Narrative 06/23/2024 3:38 PM EDT COMPARISON: ??There are no prior studies available for comparison at this time. ?? FINDINGS bilateral hand x-rays AP lateral and oblique views. Bilaterally severe generalized osteopenia. Bilaterally arthritic changes of the DRUJ and intercarpal and radiocarpal and some of the carpometacarpal joints within the bony fusion cyst in subtle erosive changes. On the right the first MCP and on the left first and the fifth MCP joints are narrowed related to probable erosion on the fifth metacarpal head on the left. Old healed fracture off the distal fifth metacarpal on the right. Several of the MCP joints show varying degrees of degenerative arthropathy. No evidence of inflammatory arthropathy. No chondrocalcinosis bilaterally. Bilateral feet AP lateral and oblique views moderate to severe osteopenia. Hallux valgus bilaterally associated with the degenerative changes of several of the IP joints. Some of the TMT and intertarsal joints also show varying degrees of degenerative changes with hypertrophic spurs dorsally at the talonavicular joint on the left side. No erosions suggestive off inflammatory arthropathy. No old or recent fractures dislocations or other changes. Bilateral calcaneal spurs. Bilateral knee joints crosstable lateral view AP PA and axial views. Severely osteopenic bony structures joint effusion on the left side bilaterally no acute fractures or dislocations. Bilaterally mild to moderate tricompartmental degenerative arthropathy with the mild narrowing sclerosis and spurs. More advanced in the medial compartments. Loose bodies within the joint. Calcific densities in the right supracondylar region of the femur with the subtle lucency question enchondroma or any other nonaggressive lesion. 3 month follow-up recommended. Lumbar spine AP and lateral upright. Moderate to severe osteopenia paraspinal soft tissues normal. Mild degenerative changes L5 and S1 other disc spaces are within normal limits no acute fractures or dislocations or compressions. Lower facet arthropathy. Thoracic spine AP and lateral upright. Suboptimal evaluation of the individual vertebral bodies particularly within the lateral view. Moderate osteopenia paraspinal soft tissues normal. No acute fractures dislocations. Mild compressions in some of the lower thoracic regions probably chronic. Also mild degenerative disc changes of the mid thoracic region. If a fracture is strongly suspected in the thoracic region recommend CT scan. Cervical spine AP and lateral upright. Loss of lordosis related to muscle spasm. C1-C6 no acute fractures or dislocations or arthropathy. Mild degenerative changes of the facet joints. Resulting Agency Comment [id number] Procedure Note Manuela Snow MD - 06/23/2024 COMPARISON: There are no prior studies available for comparison at thistime. FINDINGS bilateral hand x-rays AP lateral and oblique views. Bilaterally severegeneralized osteopenia. Bilaterally arthritic changes of the DRUJ and intercarpal and [place] some of the carpometacarpal joints within the bony fusion cyst insubtle erosive changes. On the right the first MCP and on the left first and the fifth MCP jointsare narrowed related to probable erosion on the fifth metacarpal head onthe left. Old healed fracture off the distal fifth metacarpal on the right. Severalof the MCP joints show varying degrees of degenerative arthropathy. Noevidence of inflammatory arthropathy. No chondrocalcinosis bilaterally. Bilateral feet AP lateral and oblique views moderate to severe osteopenia.Hallux valgus bilaterally associated with the degenerative changes ofseveral of the IP joints. Some of the TMT and intertarsal joints also showvarying degrees of degenerative changes with hypertrophic spurs dorsally at thetalonavicular joint on the left side. No erosions suggestive off inflammatory arthropathy. No old or recentfractures dislocations or other changes. Bilateral calcaneal spurs. Bilateral knee joints crosstable lateral view AP PA and axial views. Severely osteopenic bony structures joint effusion on the left sidebilaterally no acute fractures or dislocations. Bilaterally mild to moderate tricompartmental degenerative arthropathywith the mild narrowing sclerosis and spurs. More advanced in the medialcompartments. Loose bodies within the joint. Calcific densities in the rightsupracondylar region of the femur with the subtle lucency questionenchondroma or any other nonaggressive lesion. 3 month follow-uprecommended. Lumbar spine AP and lateral upright. Moderate to severe osteopenia paraspinal soft tissues normal. Milddegenerative changes L5 and S1 other disc spaces are within normal limitsno acute fractures or dislocations or compressions. Lower facetarthropathy. Thoracic spine AP and lateral upright. Suboptimal evaluation of theindividual vertebral bodies particularly within the lateral view. Moderate osteopenia paraspinal soft tissues normal. No acute fracturesdislocations. Mild compressions in some of the lower thoracic regionsprobably chronic. Also mild degenerative disc changes of the mid thoracic region. If afracture is strongly suspected in the thoracic region recommend CT scan. Cervical spine AP and lateral upright. Loss of lordosis related to musclespasm. C1-C6 no acute fractures or dislocations or arthropathy. Mild degenerativechanges of the facet joints. IMPRESSION: Bilateral hands, severe arthritic changes bilaterally at the wrist jointsquestion CPPD and/or inflammatory arthropathy. IP joints show varyingdegrees of degenerative changes. Bilateral feet degenerative arthropathy no evidence of inflammatoryarthropathy. Bilateral knee joints tricompartmental degenerative arthropathy no acutechanges Lumbar spine, mild degenerative changes no acute disease. Thoracic spinemild degenerative changes. C-spine C7 not seen no acute fractures dislocations C1-C6. Mild facetarthropathy If this radiology report contains a blank impression section, it is anincomplete radiology report. Please contact the interpreting radiologistor applicable radiology division as soon as possible to obtain thecompleted interpretation. Workstation ID: [id number] [facility] XR PROCEDURES Final Re sult * XR Lumbar Spine 2 or 3 Views (06/23/2024 3:11 PM EDT) Anatomical Region Laterality Modality Spine, L-spine Computed Radiogr aphy 06/23/2024 3:18 PM EDT Impressions 06/23/2024 3:38 PM EDT Bilateral hands, severe arthritic changes bilaterally at the wrist joints question CPPD and/or inflammatory arthropathy. IP joints show varying degrees of degenerative changes. Bilateral feet degenerative arthropathy no evidence of inflammatory arthropathy. Bilateral knee joints tricompartmental degenerative arthropathy no acute changes Lumbar spine, mild degenerative changes no acute disease. Thoracic spine mild degenerative changes. C-spine C7 not seen no acute fractures dislocations C1-C6. Mild facet arthropathy If this radiology report contains a blank impression section, it is an incomplete radiology report. ??Please contact the interpreting radiologist or applicable radiology division as soon as possible to obtain the completed interpretation. ? Workstation ID: [id number] Narrative 06/23/2024 3:38 PM EDT COMPARISON: ??There are no prior studies available for comparison at this time. ?? FINDINGS bilateral hand x-rays AP lateral and oblique views. Bilaterally severe generalized osteopenia. Bilaterally arthritic changes of the DRUJ and intercarpal and radiocarpal and some of the carpometacarpal joints within the bony fusion cyst in subtle erosive changes. On the right the first MCP and on the left first and the fifth MCP joints are narrowed related to probable erosion on the fifth metacarpal head on the left. Old healed fracture off the distal fifth metacarpal on the right. Several of the MCP joints show varying degrees of degenerative arthropathy. No evidence of inflammatory arthropathy. No chondrocalcinosis bilaterally. Bilateral feet AP lateral and oblique views moderate to severe osteopenia. Hallux valgus bilaterally associated with the degenerative changes of several of the IP joints. Some of the TMT and intertarsal joints also show varying degrees of degenerative changes with hypertrophic spurs dorsally at the talonavicular joint on the left side. No erosions suggestive off inflammatory arthropathy. No old or recent fractures dislocations or other changes. Bilateral calcaneal spurs. Bilateral knee joints crosstable lateral view AP PA and axial views. Severely osteopenic bony structures joint effusion on the left side bilaterally no acute fractures or dislocations. Bilaterally mild to moderate tricompartmental degenerative arthropathy with the mild narrowing sclerosis and spurs. More advanced in the medial compartments. Loose bodies within the joint. Calcific densities in the right supracondylar region of the femur with the subtle lucency question enchondroma or any other nonaggressive lesion. 3 month follow-up recommended. Lumbar spine AP and lateral upright. Moderate to severe osteopenia paraspinal soft tissues normal. Mild degenerative changes L5 and S1 other disc spaces are within normal limits no acute fractures or dislocations or compressions. Lower facet arthropathy. Thoracic spine AP and lateral upright. Suboptimal evaluation of the individual vertebral bodies particularly within the lateral view. Moderate osteopenia paraspinal soft tissues normal. No acute fractures dislocations. Mild compressions in some of the lower thoracic regions probably chronic. Also mild degenerative disc changes of the mid thoracic region. If a fracture is strongly suspected in the thoracic region recommend CT scan. Cervical spine AP and lateral upright. Loss of lordosis related to muscle spasm. C1-C6 no acute fractures or dislocations or arthropathy. Mild degenerative changes of the facet joints. Resulting Agency Comment [id number] Procedure Note Manuela Snow MD - 06/23/2024 COMPARISON: There are no prior studies available for comparison at thistime. FINDINGS bilateral hand x-rays AP lateral and oblique views. Bilaterally severegeneralized osteopenia. Bilaterally arthritic changes of the DRUJ and intercarpal and [place] some of the carpometacarpal joints within the bony fusion cyst insubtle erosive changes. On the right the first MCP and on the left first and the fifth MCP jointsare narrowed related to probable erosion on the fifth metacarpal head onthe left. Old healed fracture off the distal fifth metacarpal on the right. Severalof the MCP joints show varying degrees of degenerative arthropathy. Noevidence of inflammatory arthropathy. No chondrocalcinosis bilaterally. Bilateral feet AP lateral and oblique views moderate to severe osteopenia.Hallux valgus bilaterally associated with the degenerative changes ofseveral of the IP joints. Some of the TMT and intertarsal joints also showvarying degrees of degenerative changes with hypertrophic spurs dorsally at thetalonavicular joint on the left side. No erosions suggestive off inflammatory arthropathy. No old or recentfractures dislocations or other changes. Bilateral calcaneal spurs. Bilateral knee joints crosstable lateral view AP PA and axial views. Severely osteopenic bony structures joint effusion on the left sidebilaterally no acute fractures or dislocations. Bilaterally mild to moderate tricompartmental degenerative arthropathywith the mild narrowing sclerosis and spurs. More advanced in the medialcompartments. Loose bodies within the joint. Calcific densities in the rightsupracondylar region of the femur with the subtle lucency questionenchondroma or any other nonaggressive lesion. 3 month follow-uprecommended. Lumbar spine AP and lateral upright. Moderate to severe osteopenia paraspinal soft tissues normal. Milddegenerative changes L5 and S1 other disc spaces are within normal limitsno acute fractures or dislocations or compressions. Lower facetarthropathy. Thoracic spine AP and lateral upright. Suboptimal evaluation of theindividual vertebral bodies particularly within the lateral view. Moderate osteopenia paraspinal soft tissues normal. No acute fracturesdislocations. Mild compressions in some of the lower thoracic regionsprobably chronic. Also mild degenerative disc changes of the mid thoracic region. If afracture is strongly suspected in the thoracic region recommend CT scan. Cervical spine AP and lateral upright. Loss of lordosis related to musclespasm. C1-C6 no acute fractures or dislocations or arthropathy. Mild degenerativechanges of the facet joints. IMPRESSION: Bilateral hands, severe arthritic changes bilaterally at the wrist jointsquestion CPPD and/or inflammatory arthropathy. IP joints show varyingdegrees of degenerative changes. Bilateral feet degenerative arthropathy no evidence of inflammatoryarthropathy. Bilateral knee joints tricompartmental degenerative arthropathy no acutechanges Lumbar spine, mild degenerative changes no acute disease. Thoracic spinemild degenerative changes. C-spine C7 not seen no acute fractures dislocations C1-C6. Mild facetarthropathy If this radiology report contains a blank impression section, it is anincomplete radiology report. Please contact the interpreting radiologistor applicable radiology division as soon as possible to obtain thecompleted interpretation. Workstation ID: [id number] [facility] XR PROCEDURES Final Re sult * X-Ray Thoracic Spine 2 Views (06/23/2024 3:11 PM EDT) Anatomical Region Laterality Modality Spine, T-spine Computed Radiogr aphy 06/23/2024 3:18 PM EDT Impressions 06/23/2024 3:38 PM EDT Bilateral hands, severe arthritic changes bilaterally at the wrist joints question CPPD and/or inflammatory arthropathy. IP joints show varying degrees of degenerative changes. Bilateral feet degenerative arthropathy no evidence of inflammatory arthropathy. Bilateral knee joints tricompartmental degenerative arthropathy no acute changes Lumbar spine, mild degenerative changes no acute disease. Thoracic spine mild degenerative changes. C-spine C7 not seen no acute fractures dislocations C1-C6. Mild facet arthropathy If this radiology report contains a blank impression section, it is an incomplete radiology report. ??Please contact the interpreting radiologist or applicable radiology division as soon as possible to obtain the completed interpretation. ? Workstation ID: [id number] Narrative 06/23/2024 3:38 PM EDT COMPARISON: ??There are no prior studies available for comparison at this time. ?? FINDINGS bilateral hand x-rays AP lateral and oblique views. Bilaterally severe generalized osteopenia. Bilaterally arthritic changes of the DRUJ and intercarpal and radiocarpal and some of the carpometacarpal joints within the bony fusion cyst in subtle erosive changes. On the right the first MCP and on the left first and the fifth MCP joints are narrowed related to probable erosion on the fifth metacarpal head on the left. Old healed fracture off the distal fifth metacarpal on the right. Several of the MCP joints show varying degrees of degenerative arthropathy. No evidence of inflammatory arthropathy. No chondrocalcinosis bilaterally. Bilateral feet AP lateral and oblique views moderate to severe osteopenia. Hallux valgus bilaterally associated with the degenerative changes of several of the IP joints. Some of the TMT and intertarsal joints also show varying degrees of degenerative changes with hypertrophic spurs dorsally at the talonavicular joint on the left side. No erosions suggestive off inflammatory arthropathy. No old or recent fractures dislocations or other changes. Bilateral calcaneal spurs. Bilateral knee joints crosstable lateral view AP PA and axial views. Severely osteopenic bony structures joint effusion on the left side bilaterally no acute fractures or dislocations. Bilaterally mild to moderate tricompartmental degenerative arthropathy with the mild narrowing sclerosis and spurs. More advanced in the medial compartments. Loose bodies within the joint. Calcific densities in the right supracondylar region of the femur with the subtle lucency question enchondroma or any other nonaggressive lesion. 3 month follow-up recommended. Lumbar spine AP and lateral upright. Moderate to severe osteopenia paraspinal soft tissues normal. Mild degenerative changes L5 and S1 other disc spaces are within normal limits no acute fractures or dislocations or compressions. Lower facet arthropathy. Thoracic spine AP and lateral upright. Suboptimal evaluation of the individual vertebral bodies particularly within the lateral view. Moderate osteopenia paraspinal soft tissues normal. No acute fractures dislocations. Mild compressions in some of the lower thoracic regions probably chronic. Also mild degenerative disc changes of the mid thoracic region. If a fracture is strongly suspected in the thoracic region recommend CT scan. Cervical spine AP and lateral upright. Loss of lordosis related to muscle spasm. C1-C6 no acute fractures or dislocations or arthropathy. Mild degenerative changes of the facet joints. Resulting Agency Comment [id number] Procedure Note Manuela Snow MD - 06/23/2024 COMPARISON: There are no prior studies available for comparison at thistime. FINDINGS bilateral hand x-rays AP lateral and oblique views. Bilaterally severegeneralized osteopenia. Bilaterally arthritic changes of the DRUJ and intercarpal and [place] some of the carpometacarpal joints within the bony fusion cyst insubtle erosive changes. On the right the first MCP and on the left first and the fifth MCP jointsare narrowed related to probable erosion on the fifth metacarpal head onthe left. Old healed fracture off the distal fifth metacarpal on the right. Severalof the MCP joints show varying degrees of degenerative arthropathy. Noevidence of inflammatory arthropathy. No chondrocalcinosis bilaterally. Bilateral feet AP lateral and oblique views moderate to severe osteopenia.Hallux valgus bilaterally associated with the degenerative changes ofseveral of the IP joints. Some of the TMT and intertarsal joints also showvarying degrees of degenerative changes with hypertrophic spurs dorsally at thetalonavicular joint on the left side. No erosions suggestive off inflammatory arthropathy. No old or recentfractures dislocations or other changes. Bilateral calcaneal spurs. Bilateral knee joints crosstable lateral view AP PA and axial views. Severely osteopenic bony structures joint effusion on the left sidebilaterally no acute fractures or dislocations. Bilaterally mild to moderate tricompartmental degenerative arthropathywith the mild narrowing sclerosis and spurs. More advanced in the medialcompartments. Loose bodies within the joint. Calcific densities in the rightsupracondylar region of the femur with the subtle lucency questionenchondroma or any other nonaggressive lesion. 3 month follow-uprecommended. Lumbar spine AP and lateral upright. Moderate to severe osteopenia paraspinal soft tissues normal. Milddegenerative changes L5 and S1 other disc spaces are within normal limitsno acute fractures or dislocations or compressions. Lower facetarthropathy. Thoracic spine AP and lateral upright. Suboptimal evaluation of theindividual vertebral bodies particularly within the lateral view. Moderate osteopenia paraspinal soft tissues normal. No acute fracturesdislocations. Mild compressions in some of the lower thoracic regionsprobably chronic. Also mild degenerative disc changes of the mid thoracic region. If afracture is strongly suspected in the thoracic region recommend CT scan. Cervical spine AP and lateral upright. Loss of lordosis related to musclespasm. C1-C6 no acute fractures or dislocations or arthropathy. Mild degenerativechanges of the facet joints. IMPRESSION: Bilateral hands, severe arthritic changes bilaterally at the wrist jointsquestion CPPD and/or inflammatory arthropathy. IP joints show varyingdegrees of degenerative changes. Bilateral feet degenerative arthropathy no evidence of inflammatoryarthropathy. Bilateral knee joints tricompartmental degenerative arthropathy no acutechanges Lumbar spine, mild degenerative changes no acute disease. Thoracic spinemild degenerative changes. C-spine C7 not seen no acute fractures dislocations C1-C6. Mild facetarthropathy If this radiology report contains a blank impression section, it is anincomplete radiology report. Please contact the interpreting radiologistor applicable radiology division as soon as possible to obtain thecompleted interpretation. Workstation ID: [id number] us [facility] XR PROCEDURES Final Re sult * X-Ray Cervical Spine 2 or 3 Views (06/23/2024 3:11 PM EDT) Anatomical Region Laterality Modality Spine, C-spine Computed Radiogr aphy 06/23/2024 3:18 PM EDT Impressions 06/23/2024 3:38 PM EDT Bilateral hands, severe arthritic changes bilaterally at the wrist joints question CPPD and/or inflammatory arthropathy. IP joints show varying degrees of degenerative changes. Bilateral feet degenerative arthropathy no evidence of inflammatory arthropathy. Bilateral knee joints tricompartmental degenerative arthropathy no acute changes Lumbar spine, mild degenerative changes no acute disease. Thoracic spine mild degenerative changes. C-spine C7 not seen no acute fractures dislocations C1-C6. Mild facet arthropathy If this radiology report contains a blank impression section, it is an incomplete radiology report. ??Please contact the interpreting radiologist or applicable radiology division as soon as possible to obtain the completed interpretation. ? Workstation ID: [id number] Narrative 06/23/2024 3:38 PM EDT COMPARISON: ??There are no prior studies available for comparison at this time. ?? FINDINGS bilateral hand x-rays AP lateral and oblique views. Bilaterally severe generalized osteopenia. Bilaterally arthritic changes of the DRUJ and intercarpal and radiocarpal and some of the carpometacarpal joints within the bony fusion cyst in subtle erosive changes. On the right the first MCP and on the left first and the fifth MCP joints are narrowed related to probable erosion on the fifth metacarpal head on the left. Old healed fracture off the distal fifth metacarpal on the right. Several of the MCP joints show varying degrees of degenerative arthropathy. No evidence of inflammatory arthropathy. No chondrocalcinosis bilaterally. Bilateral feet AP lateral and oblique views moderate to severe osteopenia. Hallux valgus bilaterally associated with the degenerative changes of several of the IP joints. Some of the TMT and intertarsal joints also show varying degrees of degenerative changes with hypertrophic spurs dorsally at the talonavicular joint on the left side. No erosions suggestive off inflammatory arthropathy. No old or recent fractures dislocations or other changes. Bilateral calcaneal spurs. Bilateral knee joints crosstable lateral view AP PA and axial views. Severely osteopenic bony structures joint effusion on the left side bilaterally no acute fractures or dislocations. Bilaterally mild to moderate tricompartmental degenerative arthropathy with the mild narrowing sclerosis and spurs. More advanced in the medial compartments. Loose bodies within the joint. Calcific densities in the right supracondylar region of the femur with the subtle lucency question enchondroma or any other nonaggressive lesion. 3 month follow-up recommended. Lumbar spine AP and lateral upright. Moderate to severe osteopenia paraspinal soft tissues normal. Mild degenerative changes L5 and S1 other disc spaces are within normal limits no acute fractures or dislocations or compressions. Lower facet arthropathy. Thoracic spine AP and lateral upright. Suboptimal evaluation of the individual vertebral bodies particularly within the lateral view. Moderate osteopenia paraspinal soft tissues normal. No acute fractures dislocations. Mild compressions in some of the lower thoracic regions probably chronic. Also mild degenerative disc changes of the mid thoracic region. If a fracture is strongly suspected in the thoracic region recommend CT scan. Cervical spine AP and lateral upright. Loss of lordosis related to muscle spasm. C1-C6 no acute fractures or dislocations or arthropathy. Mild degenerative changes of the facet joints. Resulting Agency Comment [id number] Procedure Note Manuela Snow MD - 06/23/2024 COMPARISON: There are no prior studies available for comparison at thistime. FINDINGS bilateral hand x-rays AP lateral and oblique views. Bilaterally severegeneralized osteopenia. Bilaterally arthritic changes of the DRUJ and intercarpal and [place] some of the carpometacarpal joints within the bony fusion cyst insubtle erosive changes. On the right the first MCP and on the left first and the fifth MCP jointsare narrowed related to probable erosion on the fifth metacarpal head onthe left. Old healed fracture off the distal fifth metacarpal on the right. Severalof the MCP joints show varying degrees of degenerative arthropathy. Noevidence of inflammatory arthropathy. No chondrocalcinosis bilaterally. Bilateral feet AP lateral and oblique views moderate to severe osteopenia.Hallux valgus bilaterally associated with the degenerative changes ofseveral of the IP joints. Some of the TMT and intertarsal joints also showvarying degrees of degenerative changes with hypertrophic spurs dorsally at thetalonavicular joint on the left side. No erosions suggestive off inflammatory arthropathy. No old or recentfractures dislocations or other changes. Bilateral calcaneal spurs. Bilateral knee joints crosstable lateral view AP PA and axial views. Severely osteopenic bony structures joint effusion on the left sidebilaterally no acute fractures or dislocations. Bilaterally mild to moderate tricompartmental degenerative arthropathywith the mild narrowing sclerosis and spurs. More advanced in the medialcompartments. Loose bodies within the joint. Calcific densities in the rightsupracondylar region of the femur with the subtle lucency questionenchondroma or any other nonaggressive lesion. 3 month follow-uprecommended. Lumbar spine AP and lateral upright. Moderate to severe osteopenia paraspinal soft tissues normal. Milddegenerative changes L5 and S1 other disc spaces are within normal limitsno acute fractures or dislocations or compressions. Lower facetarthropathy. Thoracic spine AP and lateral upright. Suboptimal evaluation of theindividual vertebral bodies particularly within the lateral view. Moderate osteopenia paraspinal soft tissues normal. No acute fracturesdislocations. Mild compressions in some of the lower thoracic regionsprobably chronic. Also mild degenerative disc changes of the mid thoracic region. If afracture is strongly suspected in the thoracic region recommend CT scan. Cervical spine AP and lateral upright. Loss of lordosis related to musclespasm. C1-C6 no acute fractures or dislocations or arthropathy. Mild degenerativechanges of the facet joints. IMPRESSION: Bilateral hands, severe arthritic changes bilaterally at the wrist jointsquestion CPPD and/or inflammatory arthropathy. IP joints show varyingdegrees of degenerative changes. Bilateral feet degenerative arthropathy no evidence of inflammatoryarthropathy. Bilateral knee joints tricompartmental degenerative arthropathy no acutechanges Lumbar spine, mild degenerative changes no acute disease. Thoracic spinemild degenerative changes. C-spine C7 not seen no acute fractures dislocations C1-C6. Mild facetarthropathy If this radiology report contains a blank impression section, it is anincomplete radiology report. Please contact the interpreting radiologistor applicable radiology division as soon as possible to obtain thecompleted interpretation. Workstation ID: [id number] us [facility] XR PROCEDURES Final Re sult * XR Knee, Outside Result (06/06/2024) Anatomical Region Laterality Modality Other 06/06/2024 us Onbase [facility] EXTERNAL RESULT PROCEDURE S Final Result * LAB - SCANNED (06/02/2024) us [facility] HISTORICAL RESULTS Final Result from Last 3 Months Insurance [facility] Care Teams Car Pincher Relationship Specialty Start Date End Date Lulú Joanne [address] [place] [id number] PCP - General Family Medicine 04/03/24
--- OUTSIDE RECORDS SUMMARY | 2024-07-24 12:49 | XMS_ITS | Encounter Summary ---
Author Organization [employer] Address [address] [place] [address] Care Team Providers Care Automotive Sales Specialist Name Role Phone Ryanne Dao PLASTERER ROUGH Primary Care Provider [phone] Joanne Chino NP Primary Care Provider [phone] Reason for Visit * Reason Comments Med Refill Encounter Details Date Type Department Care Team ([facility] st Contact Info) Description 07/06/2023 Refill [facility] [address] [place], [place] [id number] Name, MD Juan Pablo [address] [place] [address] Rheumatoid arthritis involving multiple sites, unspecified whether [...] problems with any of the following? Mold;Lead [place] or Pipes 05/18/2023 Food Insecurity Answer Date [...] Description 07/29/2024 10:00 AM EDT Office Visit [facility] [address] [place] [id number] Evla Osorio 09/02/2024 1:30 PM EDT Office Visit [facility] [address] [place] [phone] Joanne Chino NP [address] [place] [address] 09/08/2024 1:00 PM EDT Clinical Support [facility] [address] [place] [id number] Franca Murillo RN documented as of this encounter Visit Diagnoses Diagnosis Rheumatoid arthritis involving multiple sites, unspecified whether rheumatoid factor present ([facility]) Chronic pain syndrome documented in this encounter Additional Health Concerns Assessment Noted Time PHQ-9 Depression Total Score: 24 024 2:10 PM EST documented as of this encounter Care Teams Automotive Sales Specialist Relationship Specialty Start Date End Date Ryanne Dao FNP [address] [place] [address] PCP - General Family Medicine 02/02/22 08/30/23 Joanne Chino NP [address] [place] [id number] PCP - General Family Medicine 08/31/23 documented as of this encounter
--- OUTSIDE RECORDS SUMMARY | 2024-07-24 12:49 | XMS_ITS | Encounter Summary ---
Author Organization [facility] Address [address] [place] [address] Care Team Providers Care Supervisor Steel Division Name Role Phone Joanne Chino Primary Care Provider [phone] Encounter Details Date Type Department Care Team (Latest Contact Info) Description 04/03/2024 Transcribe Orders [facility] [address] [place] [address] 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 (Primary Dx) Social History Tobacco Use Types Packs/Day Years [...] Info) Description 10/10/2024 2:00 PM EDT Follow-Up [facility] [address] [place] [address] Churn Tender: Teresa Charles, MIKE [address] [place] [address] documented as of this encounter Visit Diagnoses Diagnosis 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 (HCC)- Primary documented in this encounter Care Teams Supervisor Steel Division Relationship Specialty Start Date End Date Joanne Chino [address] [place] [id number] PCP - General Family Medicine 04/03/24 documented as of this encounter
--- OUTSIDE RECORDS SUMMARY | 2024-07-24 12:49 | XMS_ITS | Encounter Summary ---
Author Organization [employer] Address [address] [facility] [address] [place] [address] Care Team Providers Care Gauge Machine Operator Name Role Phone Ryanne DaoP Primary Care Provider [phone] Joanne Chino NP Primary Care Provider [phone] Encounter Details Date Type Department Care Team (Late st Contact Info) Description 11/07/2022 Orders Only [facility] [address] [place], [place] [phone] Ryanne Dao FNP [address] [place], [place] [phone] Other iron deficiency anemia (Primary Dx) Social History Tobacco Use Types [...] Description 07/29/2024 10:00 AM EDT Office Visit [facility] [address] [place], [place] [phone] Elva Osorio 09/02/2024 1:30 PM EDT Office Visit [facility] [address] [place] [address] Joanne Chino NP [address] [place] [address] 09/08/2024 1:00 PM EDT Clinical Support [facility] [address] [place] [address] Franca Murillo RN documented as of this encounter Visit Diagnoses Diagnosis Other iron deficiency anemia- Primary documented in this encounter Additional Health Concerns Assessment Noted Time PHQ-9 Depression Total Score: 24 023 11:33 AM EST documented as of this encounter Care Teams Gauge Machine Operator Relationship Specialty Start Date End Date Ryanne [place] [address] PCP - General Family Medicine 02/02/22 08/30/23 Joanne Chino NP [address] [place] [phone] PCP - General Family Medicine 08/31/23 documented as of this encounter
--- OUTSIDE RECORDS SUMMARY | 2024-07-24 12:49 | XMS_ITS | Encounter Summary ---
Author Organization [employer] Address [address] [facility] [address] [place] [address] Care Team Providers Care Farm Management Teacher Name Role Phone Ryanne Dao Primary Care Provider [phone] Joanne Chino NP Primary Care Provider [phone] Encounter Details Date Type Department Care Team (Late st Contact Info) Description 12/27/2022 Orders Only [facility] [address] [place], [place] [phone] Ryanne Dao FNP [address] [place] [address] Social History Tobacco Use Types Packs/Day Years Used Date Smoking Tobacco: Never Passive Smoke Exposure: Never Smokeless Tobacco: Never Alcohol Use Standard Drinks/Week Comments Not Currently 0 (1 standard drink = 0.6 oz pur e alcohol) Depression Answer Date Recorded Patient Health Questionnaire-9 Score 24 05/26/2022 Housing Stability Answer Date Recorded What is your housing situation today? I have chasity damian 12/25/[address] you li ve. Do you have problems with any of the following? None of the above 12/25/2022 Food Insecurity Answer Date Recorded Within the past 12 months, y ou worried that your food would run out before you got money to buy more: Never True 12/25/2022 Within the past 12 months,th e food you bought just didn't last and you didn't have enough money to get more: Never True 11/2022 Transportation Answer Date Recorded In the past 12 months, has l ack of transportation kept you from medical appts, meetings, work or from getting things needed for daily living? No 12/25/2022 Utilities Answer Date Recorded In the past 12 months, has t he electric, gas, oil or water company threatened to shut off services in your home? No 12/25/2022 Depression Answer Date Recorded Patient Health Questionnaire-2 [...] Description 07/29/2024 10:00 AM EDT Office Visit [facility] [address] [place] [address] Elva Osorio 09/02/2024 1:30 PM EDT Office Visit [facility] [address] [place] [address] Joanne Chino NP [address] [place] [address] 09/08/2024 1:00 PM EDT Clinical Support [facility] [address] [place] [phone] Franca Murillo RN documented as of this encounter Visit Diagnoses Not on filedocumented in this encounter Additional Health Concerns Assessment Noted Time PHQ-9 Depression Total Score: 24 023 11:33 AM EST documented as of this encounter Care Teams Farm Management Teacher Relationship Specialty Start Date End Date Ryanne Dao FNP [address] [place] [address] PCP - General Family Medicine 02/02/22 08/30/23 Joanne Chino NP [address] [place] [phone] PCP - General Family Medicine 08/31/23 documented as of this encounter
--- OUTSIDE RECORDS SUMMARY | 2024-07-24 12:49 | XMS_ITS | Clinical Summary ---
Author Organization [facility] Address [address] [place] [address] Care Team Providers Care Sluice Tender Name Role Phone Joanne Chino Primary Care Provider [phone] Allergies Active Allergy Reactions Criticality Noted Date [...] 025 Active Problems No known active problems Encounters Date Type Department Care Team Description 07/23/2024 Telephone [facility] [address] [place], [place] [phone] Intensive Care Unit Registered Nurse: Sarai Whitlock Prior Authorization (upadacitinib ER (RINVOQ) 15 mg tablet) 07/18/2024 2:00 PM EDT Follow-Up [facility] [address] [place] [address] Intensive Care Unit Registered Nurse: Teresa Charles PA 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) 07/15/2024 Telephone [facility] [address] [place] [address] Intensive Care Unit Registered Nurse: Chela Gabriel Telephone Intake, Staff PAC Urgent Appt Request 06/23/2024 2:23 PM EDT - 06/23/2024 11:59 PM EDT Hospital Encounter [facility] XRay [address] [place] [address] Arthralgia, unspecified joint Discharge Disposition: Home or Self Care () 06/23/2024 1:00 PM EDT Office Visit [facility] [address] [place] [phone] Intensive Care Unit Registered Nurse: Teresa Charles PA Arthralgia, unspecified joint (Primary Dx); Inflammatory arthritis from Last 3 Months Social History Tobacco Use Types Packs/Day Years [...] Info) Description 10/10/2024 2:00 PM EDT Follow-Up [facility] [address] [place] [address] Intensive Care Unit Registered Nurse: Teresa Charles PA [address] [place] [address] Health Maintenance Due Date Last Done Comments Cervical Cancer Screening 1981 HIV Screening 1981 HPV and Pap Smear 1981 Pap Smear 1981 Varicella Vaccines (1 of 2 - 13+ 2-dose series) 1994 Hepatitis B Vaccines (1 of 3 - 19+ 3-dose series) 2000 DTaP,Tdap,and Td Vaccines (1 - Tdap) 07/01/2003 Mammogram 2021 COVID-19 Vaccine ( - season) 2023 08/05/2020, 07/08/2020 Alcohol/Substance Use Screening 03/19/2024 Depression Screening and Follow-Up 03/19/2024 Social Drivers of Health Annual Screening 03/19/2024 Influenza Vaccine (Season Ended) 2024 12/22/2022, 12/27/2021, 01/09/2020, Additional history exists RSV Vaccine (60+ years old and patients) (1 - 1-dose 75+ series) 2056 Pneumococcal Vaccine: Pediatric (0-5 Years) and At-Risk Patients (6-50 Years) Aged Out 12/18/2018, 2015 No longer eligibl e based on patient's age to complete this topic Hepatitis C Screening Completed 07/18/2024 Procedures * Due to [place] state law, this organization might not be sharing negative HIV tests. Procedure Name Priority Date/Time Associated Diagnosis Comments HEPATITIS PANEL, ACUTE Routine 2:38 PM EDT Rheumatoid arthritis involving multiple sites with positive rheumatoid factor (HCC) QUANTIFERON-TB GOLD PLUS, 1 [id number] Routine 07/18/2024 2:38 PM EDT Rheumatoid arthritis [...] Last 3 Months Results * Due to [place] state law, this organization might not be sharing negative HIV tests. * QuantiFERON-TB Gold Plus, 1 Tube (07/18/2024 2:38 PM EDT) Pathologist [facility] QuantiFERON-TB Gold Plus NEGATIVE NEGATIVE 07/21/2024 12:28 PM EDT [facility] Comment: Negative test result. M. tuberculosis complex infection unlikely. NIL 0.02 IU/mL 07/21/2024 12:28 PM EDT [facility] Mitogen-NIL >10.00 IU/mL 07/21/2024 12:28 PM EDT [facility] TB1-NIL 0.00 IU/mL 07/21/2024 12:28 PM EDT [facility] TB2-NIL 0.01 IU/mL 07/21/2024 12:28 PM EDT [facility] Comment: The Nil tube value reflects the [...] T-lymphocytes. For additional information, please refer to https://education.Ibercheck/faq/QSU066 (This link is being provided for informational/ educational purposes only.) Blood Structure of peripheral vein / Unknown Venipuncture / Unknown 07/18/2024 2:38 PM EDT 07/18/2024 3:13 PM EDT [facility] - 07/21/2024 12:28 PM EDT [facility] Received Date: Teresa MCKEON LAB BLOOD ORDERABLES Final Result [facility] [address] [facility] [address] [facility], [place] [address], [facility] [address], [place] [address], * Hepatitis Panel, Acute (07/18/2024 2:38 PM EDT) Pathologist [facility] Hepatitis A IgM NON-REACT ALTAF NON-REACT ALTAF 07/19/2024 5:31 AM EDT [facility] Hepatitis B Surface Antigen NON-REACT ALTAF NON-REACT ALTAF 07/19/2024 5:31 AM EDT [facility] Hepatitis B Core Antibody NON-REACT ALTAF NON-REACT ALTAF 07/19/2024 5:31 AM EDT [facility] Hepatitis C Antibody NON-REACT ALTAF NON-REACT ALTAF 07/19/2024 5:31 AM EDT [facility] Comment: HCV antibody was non-reactive. There is no laboratory evidence of HCV infection. In most cases, no further action is required. However, if recent HCV exposure is suspected, a test for HCV RNA (test code 57934) is suggested. For additional information please refer to http://[employer].Ibercheck/faq/CLX33a0 (This link is being provided for informational/ educational purposes only.) For additional information, please refer to http://[employer].Ibercheck/faq/PRP629 (This link is being provided for informational/ educational purposes only.) Blood Structure of peripheral vein / Unknown Venipuncture / Unknown 07/18/2024 2:38 PM EDT 07/18/2024 3:13 PM ED[address]ative [facility] - 07/19/2024 5:31 AM EDT [facility] Received Date: Teresa MCKEON LAB BLOOD ORDERABLES Final Result [facility] [address] [facility] [address]rd Floor, [place] [address], [facility] [address], [place] [address], * (ABNORMAL) CBC Auto Differential (06/23/2024 3:18 PM EDT) WBC 6.0 3.8 - 10.8 10*3/uL 06/23/2024 3:40 PM EDT [facility] RBC 3.87 3.80 - 5.10 10*6/uL 06/23/2024 3:40 PM EDT [facility] Hemoglobin 10.5(L) 11.7 - 15.5 g/dL 06/23/2024 3:40 PM EDT [facility] Hematocrit 33.6(L) 35.0 - 45.0 % 06/23/2024 3:40 PM EDT [facility] MCV 86.8 80.0 - 100.0 fL 06/23/2024 3:40 PM EDT [facility] MCH 27.1 27.0 - 33.0 pg 06/23/2024 3:40 PM EDT [facility] MCHC 31.3(L) 32.0 - 36.0 g/dL 06/23/2024 3:40 PM EDT [facility] RDW 15.3(H) 11.0 - 15.0 % 06/23/2024 3:40 PM EDT [facility] Platelets 349 140 - 400 10*3/uL 06/23/2024 3:40 PM EDT [facility] MPV 8.8 7.5 - 12.5 fL 06/23/2024 3:40 PM EDT [facility] Neutrophil % 50.9 % 06/23/2024 3:40 PM EDT [facility] Immature Grans % 0.2 0.0 - 0.9 % 06/23/2024 3:40 PM EDT [facility] Lymphocyte % 31.5 % 06/23/2024 3:40 PM EDT [facility] Monocyte % 14.6 % 06/23/2024 3:40 PM EDT [facility] Eosinophil % 2.3 % 06/23/2024 3:40 PM EDT [facility] Basophil % 0.5 % 06/23/2024 3:40 PM EDT [facility] Neutrophil # 3.07 1.50 - 7.80 10*3/uL 06/23/2024 3:40 PM EDT [facility] Immature Grans # <0.03 <=0.03 10*3/uL 06/23/2024 3:40 PM EDT [facility] Lymphocyte # 1.90 0.85 - 3.90 10*3/uL 06/23/2024 3:40 PM EDT [facility] Monocyte # 0.90 0.20 - 0.95 10*3/uL 06/23/2024 3:40 PM EDT [facility] Eosinophil # 0.10 0.02 - 0.50 10*3/uL 06/23/2024 3:40 PM EDT [facility] Basophil # <0.03 0.00 - 0.20 10*3/uL 06/23/2024 3:40 PM EDT [facility] nRBC % 0.0 /100 WBCs 06/23/2024 3:40 PM EDT [facility] nRBC # <0.01 <0.01 10*3/uL 06/23/2024 3:40 PM EDT [facility] Blood Structure of peripheral vein / Unknown Venipuncture / Unknown 06/23/2024 3:18 PM EDT 06/23/2024 3:31 PM EDT Teresa MCKEON LAB BLOOD ORDERABLES Final Result Performing Organization Address City/State/[facility] Co de Phone Number [facility] [address] [place] [address], * (ABNORMAL) Cyclic Citrullinated Peptide (CCP) Antibody, IgG (06/23/2024 3:18 PM EDT) Cyclic Citrullinated Peptide (CCP) Ab (IgG) 50(H) UNITS 06/25/2024 9:40 AM EDT [facility] Comment: Reference Range Negative: ?<20 Weak Positive: ? 20-39 Moderate Positive: ?? 40-59 Strong Positive: ? >59 Blood Structure of peripheral vein / Unknown Venipuncture / Unknown 06/23/2024 3:18 PM EDT 06/23/2024 3:31 PM EDT Narrative [facility] - 06/25/2024 9:40 AM EDT [facility] Received Date: Teresa MCKEON LAB BLOOD ORDERABLES Final Result [facility] [address] [facility] 3[address], [place] [address], [place] [phone] [facility] [address] [place] [address], [place] [phone] * BRYNN Screen, IFA, w/Reflex to Titer & Pattern (06/23/2024 3:18 PM EDT) [facility] BRYNN Screen, IFA NEGATIVE NEGATIVE 1:23 PM EDT [facility] Comment: BRYNN IFA is a first line [...] AC-0: Negative International Consensus on BRYNN Patterns (https://doi.org/10.1515/evte-4252-7648) For additional information, please refer to http://education.[employer]/faq/HGZ048 (This link is being provided for informational/ educational purposes only.) ?? Blood Structure of peripheral vein / Unknown Venipuncture / Unknown 06/23/2024 3:18 PM EDT 06/23/2024 3:31 PM EDT Pete TORRES - 06/26/2024 1:23 PM EDT [facility] Received Date:[id number] Teresa MCKEON LAB BLOOD ORDERABLES Final Result [facility] [address] [facility] [address] [facility], [place] [address], [place] [phone] [facility] [address] [facility] 3rd Floor, [place] [address], [place] [phone] * (ABNORMAL) Sedimentation rate, automated (06/23/2024 3:18 PM EDT) Pathologist [facility] Sed Rate 88(H) <20 mm/Hr mm/Hr 06/23/2024 3:43 PM EDT [facility] Blood Structure of peripheral vein / Unknown Venipuncture / Unknown 06/23/2024 3:18 PM EDT 06/23/2024 3:31 PM EDT Teresa MCKEON LAB BLOOD ORDERABLES Final Result [facility] [address] [place] [address], [place] * (ABNORMAL) Rheumatoid factor (06/23/2024 3:18 PM EDT) [facility] Rheumatoid Factor 207(H) <14 IU/mL 06/24/2024 11:47 AM EDT [facility] Blood Structure of peripheral vein / Unknown Venipuncture / Unknown 06/23/2024 3:18 PM EDT 06/23/2024 3:31 PM EDT Narrative [facility] - 06/24/2024 11:47 AM EDT [facility] Received Date:[id number] Teresa MCKEON LAB BLOOD ORDERABLES Final Result [facility] [address] [facility] [address], [place] [address], [place] [phone] [facility] [address] [facility] [address], [place] [address], [place] [phone] * (ABNORMAL) C-reactive protein (06/23/2024 3:18 PM EDT) [facility] C Reactive Protein 65.9(H) <=9.9 mg/L 06/23/2024 4:09 PM EDT [facility] Blood Structure of peripheral vein / Unknown Venipuncture / Unknown 06/23/2024 3:18 PM EDT 06/23/2024 3:31 PM EDT Teresa MCKEON LAB BLOOD ORDERABLES Final Result Performing Organization Address City/[facility] Co de Phone Number [facility] [address] [place] [address], [place] * BRYNN Specific Antibody w/Reflex to Rowley (06/23/2024 3:18 PM EDT) BRYNN Screen, Immunoassay NEGATIVE NEGATIVE 06/25/2024 5:40 AM EDT [facility] Comment: A negative BRYNN Multiplex indicates the absence of detectable antibodies to component analytes consisting of double stranded DNA (dsDNA), chromatin, ribonucleoprotein (INTERFACE DEVELOPER), Pandey/INTERFACE DEVELOPER (Sm/INTERFACE DEVELOPER), Pandey (Sm), SS-A, SS-B, Rubi-1, centromere B, Scl-70 and ribosomal P. A negative result should be interpreted in the context of the clinical and laboratory findings and does not rule out autoimmune disease characterized by other autoantibody specificities such as rheumatoid arthritis, autoimmune hepatitis, primary biliary cirrhosis, autoimmune thyroiditis, Gamaliel's disease, pernicious anemia, autoimmune neuropathies, vasculitis, celiac disease, and bullous disease. For additional information, please refer to http://education.D[employer]IS[employer]/faq/WDK936 (This link is being provided for informational/ educational purposes only.) ?? Blood Structure of peripheral vein / Unknown Venipuncture / Unknown 06/23/2024 3:18 PM EDT 06/23/2024 3:31 PM EDT [facility]ative [facility] 06/25/2024 5:40 AM EDT [facility] Received Date:[id number] Teresa MCKEON LAB BLOOD ORDERABLES Final Result Performing Organization Address City/[facility]/ZIP Co de Phone Number LINDA MUNDORENA [address] [place] [address] [address]rd Floor, [place] [address], [place] [phone] [facility] [address], [place] [address], [place] [phone] * (ABNORMAL) Comprehensive metabolic panel (06/23/2024 3:18 PM EDT) NA 137 135 - 145 mmol/L 06/23/2024 4:09 PM EDT [facility] K 3.1(L) 3.5 - 5.3 mmol/L 06/23/2024 4:09 PM EDT [facility] Cl 97(L) 98 - 107 mmol/L 06/23/2024 4:09 PM EDT [facility] CO2 27 22 - 32 mmol/L 06/23/2024 4:09 PM EDT [facility] Anion Gap 13 5 - 15 06/23/2024 4:09 PM EDT [facility] Glucose 126(H) 65 - 99 mg/dL 06/23/2024 4:09 PM EDT [facility] Creatinine 0.61 0.50 - 1.20 mg/dL 06/23/2024 4:09 PM EDT [facility] Calcium 9.0 8.6 - 10.5 mg/dL 06/23/2024 4:09 PM EDT [facility] Total Protein 7.7 6.0 - 8.0 g/dL 06/23/2024 4:09 PM EDT [facility] Albumin 3.5 3.5 - 5.2 g/dL 06/23/2024 4:09 PM EDT [facility] Bilirubin, Total 0.4 0.2 - 1.2 mg/dL 06/23/2024 4:09 PM T [facility] Alkaline Phosphatase 75 35 - 129 U/L 06/23/2024 4:09 PM EDT [facility] AST 45(H) 10 - 40 U/L 06/23/2024 4:09 PM EDT [facility] ALT 38 10 - 40 U/L 06/23/2024 4:09 PM EDT [facility] BUN 3(L) 7 - 23 mg/dL 06/23/2024 4:09 PM EDT [facility] eGFR >90 >=60 mL/min/1. 73m2 06/23/2024 4:09 PM EDT [facility] Comment:The estimated glomer ular filtration rate (eGFR) is calculated using a new formula developed by the NKF-ASN task force to eliminate race-based correction factors. The new formula uses serum/plasma creatinine, age, and gender to determine eGFR. A value below 60mls/min might indicate kidney disease and will be flagged. For additional information, see Romano et al, Am J Kidney Dis. 2021;79(2):268- 288, A Unifying Approach for GFR estimation: Recommendations of the NKF-ASN Task Force on Reassessing the Inclusion of Race in Diagnosing Kidney Disease . Globulin, Total 4.2 2.1 - 4.2 g/dL 06/23/2024 4:09 PM EDT [facility] A/G Ratio 0.8(L) 1.5 - 3.0 06/23/2024 4:09 PM EDT [facility] Blood Structure of peripheral vein / Unknown Venipuncture / Unknown 06/23/2024 3:18 PM EDT 06/23/2024 3:31 PM EDT us Teresa MCKEON LAB BLOOD ORDERABLES Final Result [facility] [address] [place] [address], [place] * X-Ray Foot Right 3+ Views [...] obtain the completed interpretation. ? Workstation ID: [id number] Narrative 06/23/2024 3:38 PM EDT COMPARISON: ??There [...] of the facet joints. Resulting Agency Comment [id number] Procedure Note Manuela Snow MD - 06/23/2024 [...] possible to obtain thecompleted interpretation. Workstation ID: [id number] us Teresa MCKEON IMG XR PROCEDURES Final [...] obtain the completed interpretation. ? Workstation ID: [id number] Narrative 06/23/2024 3:38 PM EDT COMPARISON: ??There [...] of the facet joints. Resulting Agency Comment [id number] Procedure Note Manuela Snow MD - 06/23/2024 [...] possible to obtain thecompleted interpretation. Workstation ID: [id number] us Teresa MCKEON IMG XR PROCEDURES Final [...] obtain the completed interpretation. ? Workstation ID: [id number] Narrative 06/23/2024 3:38 PM EDT COMPARISON: ??There [...] of the facet joints. Resulting Agency Comment [id number] Procedure Note Manuela Snow MD - 06/23/2024 [...] possible to obtain thecompleted interpretation. Workstation ID: [id number] Teresa MCKEON IMG XR PROCEDURES Final Re [...] obtain the completed interpretation. ? Workstation ID: [id number] Narrative 06/23/2024 3:38 PM EDT COMPARISON: ??There [...] of the facet joints. Resulting Agency Comment [id number] Procedure Note Manuela Snow MD - 06/23/2024 [...] possible to obtain thecompleted interpretation. Workstation ID: [id number] Teresa MCKEON IMBarbara XR PROCEDURES Final Re sult * X-Ray [...] obtain the completed interpretation. ? Workstation ID: [id number] Narrative 06/23/2024 3:38 PM EDT COMPARISON: ??There [...] of the facet joints. Resulting Agency Comment [id number] Procedure Note Manuela Snow MD - 06/23/2024 [...] possible to obtain thecompleted interpretation. Workstation ID: [id number] us Teresa MCKEON IMBarbara XR PROCEDURES Final Re sult * X-Ray [...] obtain the completed interpretation. ? Workstation ID: [id number] Narrative 06/23/2024 3:38 PM EDT COMPARISON: ??There [...] of the facet joints. Resulting Agency Comment [id number] Procedure Note Manuela Snow MD - 06/23/2024 [...] possible to obtain thecompleted interpretation. Workstation ID: [id number] us Teresa MCKEON IMG XR PROCEDURES Final [...] obtain the completed interpretation. ? Workstation ID: [id number] Narrative 06/23/2024 3:38 PM EDT COMPARISON: ??There [...] of the facet joints. Resulting Agency Comment [id number] Procedure Note Manuela Snow MD - 06/23/2024 [...] possible to obtain thecompleted interpretation. Workstation ID: [id number] us Teresa MCKEON IMG XR PROCEDURES Final [...] obtain the completed interpretation. ? Workstation ID: [id number] Narrative 06/23/2024 3:38 PM EDT COMPARISON: ??There [...] of the facet joints. Resulting Agency Comment [id number] Procedure Note Manuela Snow MD - 06/23/2024 [...] possible to obtain thecompleted interpretation. Workstation ID: [id number] us Teresa MCKEON IMG XR PROCEDURES Final [...] obtain the completed interpretation. ? Workstation ID: [id number] Narrative 06/23/2024 3:38 PM EDT COMPARISON: ??There [...] of the facet joints. Resulting Agency Comment [id number] Procedure Note Manuela Snow MD - 06/23/2024 [...] possible to obtain thecompleted interpretation. Workstation ID: [id number] us Teresa MCKEON IMG XR PROCEDURES Final [...] obtain the completed interpretation. ? Workstation ID: [id number] Narrative 06/23/2024 3:38 PM EDT COMPARISON: ??There [...] of the facet joints. Resulting Agency Comment [id number] Procedure Note Manuela Snow MD - 06/23/2024 [...] possible to obtain thecompleted interpretation. Workstation ID: [id number] us Teresa MCKEON IMG XR PROCEDURES Final Re sult * XR Knee, Outside Result (06/06/2024) Anatomical Region Laterality Modality Other 06/06/2024 us On[facility] AMB EXTERNAL RESULT PROCEDURE S Final Result * LAB - SCANNED (06/02/2024) us [facility] LAB HISTORICAL RESULTS Final Result from Last 3 Months Insurance [facility] Care Teams Sluice Tender Relationship Specialty Start Date End Date Joanne Chino [address] [place] [address] PCP - General Family Medicine 04/03/24
--- OUTSIDE RECORDS SUMMARY | 2024-07-24 12:49 | XMS_ITS | Encounter Summary ---
Author Organization [employer] Address [address] [facility] [address] [place] [address] Care Team Providers Care Clinical Pharmacy Manager Name Role Phone Ryanne DaoP Primary Care Provider [phone] Joanne Chino NP Primary Care Provider [phone] Reason for Visit * Reason Onset Date Comments RXN to package sealer machine Injection 02/21/2023 Encounter Details Date Type Department Care Team (Late st Contact Info) Description 02/21/2023 Telephone [facility] MEDICINE [address] [place], [place] [phone] Ryanne Dao FNP [address] [place] [address] RXN to package sealer machine Injection Social History Tobacco Use Types Packs/Day Years Used Date Smoking Tobacco: Never Passive Smoke Exposure: Never Smokeless Tobacco: Never Alcohol Use Standard Drinks/Week Comments Not Currently 0 (1 standard drink = 0.6 oz pur e alcohol) Depression Answer Date Recorded Patient Health Questionnaire-9 Score 24 05/26/2022 Housing Stability Answer Date Recorded What is your housing situation today? I have chasity damian 01/08/[address] you li ve. Do you have problems with any of the following? None of the above 01/08/2023 Food Insecurity Answer Date Recorded Within the past 12 months, y ou worried that your food would run out before you got money to buy more: Never True 01/08/2023 Within the past 12 months,th e food [...] Telephone Encounter - Franca Murillo RN - 02/21/2023 3:06 PM EST Return TC to pt. Pt stated she saw the package sealer machine and they gave her some different type of injection. She now c/o being all swollen and unable to move. Asked her if she called her package sealer machine and reported this, she said she called this morning. Encouraged her to call them back again. Denies any respiratory issues, just states she feels tired. Pt was calling to cancel her upcoming appt withme 02/26/23. Encouraged her to wait until Sunday and see how she's feeling then. Pt agreed. Will FYI PCP. * Telephone Encounter - [place] Child - 02/21/2023 2:17 PM EST Tc from pt requesting to speak with nurse Schulte regarding current condition. Please contact pt at [phone]. documented in this encounter Plan of Treatment Upcoming Encounters Date Type Department Care Team (Late st Contact Info) Description 07/29/2024 10:00 AM EDT Office Visit [facility] ADULT DENTAL [address] [place] [address] Elva Osorio 09/02/2024 1:30 PM EDT Office Visit [facility] MEDICINE [address] [place] [address] Joanne Chino, MARY [address] [place] [address] 09/08/2024 1:00 PM EDT Clinical Support [facility] [address] [place] [address] Franca Murillo, RN documented as of this encounter Visit Diagnoses Not on filedocumented in this encounter Additional Health Concerns Assessment Noted Time PHQ-9 Depression Total Score: 24 023 11:33 AM EST documented as of this encounter Care Teams Clinical Pharmacy Manager Relationship Specialty Start Date End Date Ryanne Dao FNP [address] [place] [address] PCP - General Family Medicine 02/02/22 08/30/23 Joanne Chino NP [address] [place] [address] PCP - General Family Medicine 08/31/23 documented as of this encounter
--- OUTSIDE RECORDS SUMMARY | 2024-07-24 12:49 | XMS_ITS | Encounter Summary ---
Author Organization [employer] Address [address] [facility] 7t [place] [address] Care Team Providers Care Berry Picker Name Role Phone Ryanne Dao Primary Care Provider [phone] Joanne Chino NP Primary Care Provider [phone] Reason for Visit * Reason Comments Med Refill Encounter Details Date Type Department Care Team (Late st Contact Info) Description 09/23/2022 Refill [facility] MEDICINE [address] [place] [address] Ryanne Dao FNP [address] [place] [address] Gastroesophageal reflux disease with esophagitis without hemorrhage Social History Tobacco Use Types Packs/Day Years [...] suspected to have Coronavirus/COVID-19? No / Unsure 09/06/2022 8:36 AM EDT documented as of this encounter Plan of Treatment Upcoming Encounters Date Type Department Care Team (Late st Contact Info) Description 07/29/2024 10:00 AM EDT Office Visit [facility] ADULT DENTAL [address] [place] [address] Devon, Elva 09/02/2024 1:30 PM EDT Office Visit [facility] MEDICINE [address] [place] [address] Joanne Chino NP [address] [place] [address] 09/08/2024 1:00 PM EDT Clinical Support [facility] MEDICINE [address] [place] [address] Franca Murillo RN documented as of this encounter Visit Diagnoses Diagnosis Gastroesophageal reflux disease with esophagitis without hemorrhage documented in this encounter Additional Health Concerns Assessment Noted Time PHQ-9 Depression Total Score: 24 023 11:33 AM EST documented as of this encounter Care Teams Berry Picker Relationship Specialty Start Date End Date Ryanne [place] [address] PCP - General Family Medicine 02/02/22 08/30/23 Joanne Chino NP [address] [place] [id number] PCP - General Family Medicine 08/31/23 documented as of this encounter
--- OUTSIDE RECORDS SUMMARY | 2024-07-24 12:49 | XMS_ITS | Encounter Summary ---
Author Organization [facility] [employer] Address [address] [facility] 7[address] [place] [address] Care Team Providers Care Rn Nursery Name Role Phone Ryanne DaoP Primary Care Provider [phone] Joanne Chino NP Primary Care Provider [phone] Reason for Visit * Reason Onset Date Comments ER Follow-up 10/24/2022 Encounter Details Date Type Department Care Team (Late st Contact Info) Description 10/24/2022 Telephone [facility] MEDICINE [address] [place], [place] [phone] Ryanne Dao FNP [address] [place] [address] ER Follow-up Social History Tobacco Use Types Packs/Day Years [...] encounter Miscellaneous Notes * Telephone Encounter - Gita Segovia RN - 10/24/2022 9:44 AM EDT [facility] notes sent to medical records. 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 pt seen ER at [facility] yesterday and diagnosed with kidney infection. pt taking antibiotics and feeling a little better. pt denies high fevers, rash, sob, vomiting, blood, or other associated symptoms. offered follow up apt on , declined. pt states will call back if she needs anything, and is awaiting final cultures on her urine. advised home care: rest, fluids, monitor temperature, OTC pain or fever reliever as needed, and call back if worsening or new concerns. will task to team nurses to follow up as needed and obtain ER records. pt understands and agrees with plan. insurance verified. Protocol Used: Urination Pain - Female (Adult) Protocol-Based Disposition: See in Office or Video Visit Today Video visit offer not recorded Positive Triage Question: * All other females with painful urination, or patient wants to be seen * All higher-acuity triage questions were negative Care Advice Discussed: * Reassurance and Education - Possible Urine Infection * Drink Extra Fluids * Cranberry Juice * Warm Saline SITZ Baths - Twice Daily for Urination Pain * Reasons To Call Back - You become worse * Telephone Encounter - Sarah Mishra - 10/24/2022 8:09 AM EDT Patient calling to report ED visit on 10/23/22 at [facility]. Seen for back pain and unable to urinate. Patient advised will forward to team nurse for follow up. Symptoms: Back Pain - Not From Injury, Vomiting, Urine Symptoms Outcome: Schedule an urgent appointment (within 1 hour) or talk to a nurse or provider soon Reason: Can't pass urine (can't pee) The caller accepted this outcome documented in this encounter Plan of Treatment Upcoming Encounters Date Type Department Care Team (Late st Contact Info) Description 07/29/2024 10:00 AM EDT Office Visit [facility] ADULT DENTAL [address] [place] [address] Devon, Elva 09/02/2024 1:30 PM EDT Office Visit [facility] MEDICINE [address] [place] [address] Joanne Chino NP [address] [place] [address] 09/08/2024 1:00 PM EDT Clinical Support [address] [address] Franca Murillo, ALBERTO documented as of this encounter Visit Diagnoses Not on filedocumented in this encounter Additional Health Concerns Assessment Noted Time PHQ-9 Depression Total Score: 24 023 11:33 AM EST documented as of this encounter Care Teams Rn Nursery Relationship Specialty Start Date End Date Ryanne Dao FNP [address] [place] [address] PCP - General Family Medicine 02/02/22 08/30/23 Joanne Chino NP [address] [place] [address] PCP - General Family Medicine 08/31/23 documented as of this encounter
== END 2024-07-24 11:48 | disposition home or self-care (01) ==
LOC: HO.ENCR 11:18
PROVIDERS: PCP Nurse Practitioner Family; Visit Provider Internal Medicine Endocrinology, Diabetes & Metabolism
DX: E27.49 Other adrenocortical insufficiency (principal)
CPT/HCPCS: 99213

== ENCOUNTER → 2024-07-24 11:17 | Outpatient (BNVA) | payer OTHER, SELFPAY | PROVIDERS: PCP Nurse Practitioner Family; Visit Provider Internal Medicine Endocrinology, Diabetes & Metabolism | DX: E27.49 Other adrenocortical insufficiency (principal); R53.83 Other fatigue | CPT/HCPCS: 99212 ==

== ENCOUNTER 2024-08-04 09:02 | Outpatient (REF) | payer OTHER, SELFPAY ==
--- OUTSIDE RECORDS SUMMARY | 2024-08-04 09:14 | XMS_ITS | Encounter Summary ---
Author Organization [employer] Address [address] [facility] [address] [place] [address] Care Team Providers Care Skydiving Instructor Name Role Phone Joanne Chino NP Primary Care Provider [phone] Reason for Referral * Consultation (Routine) - Pending Review Specialty Diagnoses / Procedures Referred By Manuel franco Referred To Contact Sleep Medicine Diagnoses Chronic fatigue Joanne Chino NP [address] [place] [address] Phone: tel: fax: Referral ID Status Reason Start Date Expiration Date Visits Requested Visits Authorized [id number] Pending Review Specialty Services Required 08/01/2024 08/01/2025 1 1 Encounter Details Date Type Department Care Team (Late st Contact Info) Description 08/01/2024 Orders Only [facility] MEDICINE [address] [place], [place] [phone] Joanne Chino NP [address] [place], [place] [phone] Chronic fatigue (Primary Dx) Social History Tobacco Use Types [...] Care Team (Late st Contact Info) Description 08/15/2024 3:00 PM EDT Office Visit [facility] ADULT DENTAL [address] [place] [address] Lawrence Herrera 09/02/2024 1:30 PM EDT Office Visit [address] [address] Joanne Chino NP [address] [place] [address] 09/08/2024 1:00 PM EDT Clinical Support [address] [place] [address] Franca Murillo, RN Scheduled Orders Name Type Priority Associated Diagnoses Orde r Schedule CBC auto differential Lab Routine Chronic fatigue Expected: 08/01/2024 (Approximate), Expires: 08/01/2025 TSH W/Reflex to FT4 Lab Routine Chronic fatigue Expected: 08/01/2024 (Approximate), Expires: 08/01/2025 Comprehensive Metabolic Panel Lab Routine Chronic fatigue Expected: 08/01/2024 (Approximate), Expires: 08/01/2025 Hemoglobin A1c Lab Routine Chronic fatigue Expected: 08/01/2024 (Approximate), Expires: 08/01/2025 Scheduled Referrals Name Type Priority Associated Diagnoses Orde r Schedule Referral to Sleep Medicine Outpatient Referral Routine Chronic fatigue Expected: 08/01/2024 (Approximate), Expires: 08/01/2025 documented as of this encounter Visit Diagnoses Diagnosis Chronic fatigue- Primary Other malaise and fatigue documented in this encounter Additional Health Concerns Assessment Noted Time PHQ-9 Depression Total Score: 0 08/31/19 2:53 PM EDT documented as of this encounter Care Teams Skydiving Instructor Relationship Specialty Start Date End Date Joanne Chino NP [address] [place] [address] PCP - General Family Medicine 08/31/23 documented as of this encounter
--- OUTSIDE RECORDS SUMMARY | 2024-08-04 09:14 | XMS_ITS | Data Portability ---
Author Organization [employer] [place] [employer] Address [address] [place] [phone] Care Team Providers Care Sap Consultant Name Role Phone HIM CCA OTHER Assessment Encounter Date Assessment Date Assessment LastModified by Organization Details LastModified Time 04/16/2023 04/16/2023 I provided real -time medical direction via phone for this encounter, and was available for additional phone based assistance as needed. I have reviewed and agree with the Assessment and Plan as documented by the Transportation Driver. We discussed the diagnostic uncertainty of home [...] to call 911- verbalized understanding of instructions [email or web address] Not available 04/16/2023 13:17:07 07/22/2023 07/22/2023 As noted, we wer e called to see this patient regarding concerns of dysuria. Evaluation in the field was performed by my sheep sticker colleague, as noted above, I provided real-time [...] Assessment and Plan as documented by the Transportation Driver. We discussed the diagnostic uncertainty of home [...] verbalized understanding of instructions to the medic. [email or web address] Not available 05/13/2024 15:01:23 Plan of Treatment Reminders Order Date Submit Date Provider Last Modified By Organization Details Last Modified Time Details Appointments None recorded. Lab BMP, serum or plasma [facility]24 [facility] [address] [place] [address], [id number] 5 08:13:51 rapid SARS CoV 2 Ag, QL IA, respiratory specimen 2023 024 [facility], [address] [place] [address], [id number] 4 15:07:02 rapid flu (A+B) [address], [id number] 4 15:07:02 rapid strep group A, throat 2023 024 [facility], [address] [place] [address], [id number] 4 15:07:02 culture, urine 2023 024 [facility] (Centralized Electronic Ordering - All Locations), Patient Can Go To The Location Of Their Choice, [id number] 4 14:06:52 urinalysis, dipstick 2023 024 [facility], [address] [place] [address], [id number] 4 09:09:07 culture, urine 2023 024 [facility] (Centralized Electronic Ordering - All Locations), Patient Can Go To The Location Of Their Choice, [id number] 4 08:53:03 urinalysis, dipstick 2023 024 [email or web address] 0 [facility], [address] [place] [address], [id number] 4 11:35:28 Referral None recorded. Procedures None recorded. Surgeries None recorded. Imaging electrocard iogram 2023 024 [facility], [address] [place] [address], [id number] 4 15:23:08 Medication Orders ketorolac 30 mg/mL injection solution 2024 025 [email or web address] 0 [facility], [address] [place] [address], [id number], 5 14:50:35 ondansetron 4 mg disintegrat ing tablet 2024 025 [email or web address] 0 [facility], [address] [place] [address], [id number], 5 14:54:42 ondansetron 4 mg disintegrat ing tablet 2024 025 [facility], [address] [place] [address], [id number], 5 16:38:39 levofloxaci n 750 mg tablet 2023 024 [facility], [address] [place] [address], [id number], 4 15:22:12 levofloxaci n 750 mg tablet 2023 024 [facility], [address] [place] [address], [id number], 4 11:26:40 ondansetron 4 mg disintegrat ing tablet 2023 024 [facility], [address] [place] [address], [id number], 4 15:22:13 Robitussin Cough-Chest Congestion DM 5 mg-100 mg/5 mL oral liquid 2023 024 [facility], [address] [place] [address], [id number], 4 11:26:40 cefadroxil 500 mg capsule 2023 024 [facility], [address] [place] [address], [id number], 4 14:32:59 Bactrim DS 800 mg-160 mg tablet 2023 024 [facility], [address] [place] [address], [id number], 4 14:00:40 Bactrim DS 800 mg-160 mg tablet 2023 024 [email or web address] 0 Not available 4 11:35:23 Pyridium 200 mg tablet 2023 024 [facility], [address] [place] [address], [id number], 4 14:00:41 Tylenol Extra Strength 500 mg tablet 2023 024 [email or web address] 0 Not available 4 11:35:24 Tylenol Extra Strength 500 mg tablet 2023 024 [facility], [address] [place] [address], [id number], 4 14:00:39 Patient TargetsNo targets recorded. Patient [...] ick Leukocytes 3+ Not Available [facility] [address] [place] [address], [id number] 04/16/2023 11:31:59 04/16/19 24 04/16/2023 urina lysis , dipst ick Nitrite positi ve Not Available Main - [facility] ed [address] [place] [address], [address] 04/16/2023 11:31:59 04/16/19 24 04/16/2023 urina lysis , dipst ick Urobilinogen neg Not Available Main - [facility] [address] [place] [address], [id number] 04/16/2023 11:31:59 04/16/19 24 04/16/2023 urina lysis , dipst ick Protein trace Not Available Main - [facility] [address], [address] 04/16/2023 11:31:59 04/16/19 24 04/16/2023 urina lysis , dipst ick pH 5 Not Available Main - [facility] [address], [address] 04/16/2023 11:31:59 04/16/19 24 04/16/2023 urina lysis , dipst ick Blood neg Not Available Main - [facility] [address], [address] [place] [address] 04/16/2023 11:31:59 04/16/19 24 04/16/2023 urina lysis , dipst ick Specific [place] 1.015 Not Available Main - [facility] [address] [place] [address], [address] 04/16/2023 11:31:59 04/16/19 24 04/16/2023 urina lysis , dipst ick Ketone neg Not Available Main - [facility] [address], [address] 04/16/2023 11:31:59 04/16/19 24 04/16/2023 urina lysis , dipst ick Bilirubin neg Not Available Main - I [address], [address] 04/16/2023 11:31:59 04/16/19 24 04/16/2023 urina lysis , dipst ick Glucose neg Not Available Main - [facility] [address], [address] 04/16/2023 11:31:59 04/16/19 24 04/16/2023 urina lysis , dipst ick Appearance cloudy Not Available Main - [facility] [address] [place] [address], [address] 04/16/2023 11:31:59 04/16/19 24 04/16/2023 urina lysis , dipst ick Color dark yellow Not Available Main - [facility] [address] [place] [address], [address] 04/16/2023 11:31:59 07/22/19 24 07/26/2023 URINE CULTU RE,CO MPREH ENSIV E urine culture,comp rehensive Final report abnormal Not Available [facility] ([facility]) [address] [facility], [place], [address], 07/26/2023 12:06:12 07/22/19 24 07/26/2023 URINE CULTU [...] ng units per mL Not Available [facility] ([facility]) [address] [facility], [place], [address], 07/26/2023 12:06:12 07/22/19 24 07/26/2023 URINE CULTU [...] thopr im/Robert lfa S Not Available [facility] ([facility]) [address], [place], [address], 07/26/2023 12:06:12 01/06/2001/06/2024 rapid strep group A, throa t Strep negati ve Not Available [facility] ed [address] [place] [address], [address] 01/06/2024 15:06:39 01/06/2001/06/2024 rapid flu (A+B) Flu negati ve Not Available [facility] ed [address] [place] [address], [address] [place] [address] 01/06/2024 15:06:32 01/06/20 24 01/06/2024 rapid SARS CoV 2 Ag, QL IA, respi rator y speci men rapid SARS CoV 2 Ag, QL IA, respiratory specimen negati ve Not Available [facility] ed [address] [place] [address], [address] [place] [address] 01/06/2024 15:06:27 01/06/2001/06/2024 elect alicja willgr am No observ ation record ed. [address], [address] 01/06/2024 15:23:07 Result Notes None recorded. Procedures Surgical History None recorded. Imaging Results Imaging Date Name Status LastModified by Organization Details LastModified Time 01/06/2024 electrocardiogram completed [address], [address] 01/06/2024 15:23:07 Procedure Notes None recorded. Medical Equipment None Reported. Allergies Allergen ID Allergen Name Allergen Category Reaction Reaction Severity Criticality Documentation Date Start Date Code Code System Note Provider Name and Address Organization Details Recorded Time 6663 ceftriaxo ne medicatio n Not available Not available Not available 01/06/2024 219 RxNorm Not Available [facility] 03:42:57 Medications Name Sig Start [...] Address Organization Details Last Updated DateTime 4 865621. 12 g 97.7 [degF] 16 /min 84 /min 98 % 98 % 160.02 cm 129 mm[Hg] 84 mm[Hg] Not Available [employer] 4 11:29:33 Date Recorded Body temperature Oxygen saturation Oxygen saturation in Arterial blood by Pulse oximetry Heart rate Respiratory rate Systolic blood pressure Diastolic blood pressure Provider Name and Address Organization Details Last Updated DateTime 4 97.6 [degF] 95 % 95 % 91 /min 16 /min 158 mm[Hg] 87 mm[Hg] Not Available [employer] 4 19:27:54 Date Recorded Oxygen saturation Oxygen saturation in Arterial blood by Pulse oximetry Body weight Body height Body temperature Heart rate Respiratory rate Systolic blood pressure Diastolic blood pressure Provider Name and Address Organization Details Last Updated DateTime 4 99 % 99 % 46429.2 4 g 160.02 cm 98 [degF] 81 /min 17 /min 180 mm[Hg] 100 mm[Hg] Not Available [employer] 4 14:52:08 Date Recorded Body weight Heart rate Body temperature Respiratory rate Oxygen saturation Oxygen saturation in Arterial blood by Pulse oximetry Body height Systolic blood pressure Diastolic blood pressure Provider Name and Address Organization Details Last Updated DateTime 5 22782.2 4 g 106 /min 97.2 [degF] 16 /min 96 % 96 % 160.02 cm 125 mm[Hg] 83 mm[Hg] Not Available [employer] 5 14:38:49 Social History None recorded. Functional Status None recorded. Mental Status None recorded. Family History Nothing Reported. Medical History No medical history recorded. Gynecological HistoryNo gynecological history recorded. Obstetrics History GPAL:G 0 P 0 0 0 0 Past Encounters Encounter ID Performer Location Encounter Start Date Encounter Closed Date Diagnosis/Indication Diagnosis SNOMED-CT Code Diagnosis ICD10 Code Diagnosis Note [id number] Carmella Rodgers MD Main - [facility] [address] [place] [phone] 04/16/2023 11:29:27 04/17/2023 10:59:32 Urinary symptoms 558031675 R39.9 advised to stay well hydrated- offered tylenol for pain- accepted-/ advised to avoid caffeine as this is a bladder irritant/h as no history of CKD and denies any possibilit y of . I have added Pyridium for discomfort and explained to the patient that it may discolor her urine. She verbalized understand ing Pain of ear 472452602 H9 2.09 denies hearing loss- nothing visible externally -will be on antibiotic s but advised needs follow-up with PCP for full ear exam [id number] Dede Tan MD Main - [facility] [address] [place] [phone] 07/22/2023 19:27:51 07/24/2023 11:46:37 Urinary symptoms 459307698 R39.9 [id number] LORENA MATTA MD Main - [facility] [address] [place] [phone] 01/06/2024 14:37:47 01/08/2024 10:09:12 Community acquired pneumonia 399098356 J18.9 Evaluation in the field was performed by my sheep sticker colleague, as noted above, I provided real-time [...] The first dose was given by the sheep sticker. -Zofran 4 mg PO was given. No [...] diarrhea, weakness, dizziness, or any other concerns. [id number] Carmella Rodgers MD Main - [facility] [address] [place] [address] 05/13/2024 14:38:42 05/14/2024 12:20:52 Pain of left knee joint 9705767565 04436 M25.562 advised ice / wrapped in a [...] maximally 4 g per 24 hours Nausea 966958715 R11.0 Patient denies any possibilit y of [...] [employer] Member ID Guarantor Name 05/14/2024 1 [facility] - DOS ON OR AFTER 2022 - DUAL ELIGIBLE - DETENTION OPTIONS AND ONE CARE (MEDICARE REPLACEMENT/ADV ANTAGE - HMO) Gita Francis [id number] Gita Francis Notes Date Note Type Note Provider Name and Address Organization Details Recorded Time 04/16/2023 text/html HPI: Triage call received with complaints of painful urination and ear pain in left ear x 4 days. ..................... ..................... ..................... ..................... ..................... ..................... ............... [facility] Nurse Triage Notes (Corina Doyle): Comments: No further information needed to process visit. ..................... ..................... ..................... ..................... ..................... ..................... ............... Transportation Driver Note From Gabe White: Pt reports left [...] UA +JUANY, +NIT, +PRO. UC sent to [facility]. Pt treated with Tylenol 1 g and bactrim DS. Pt instructed to stay well hydrated, f/u with PCP later this week and to seek emergent medical care for new or worsening sx, which are reviewed with her. ..................... ..................... ..................... ..................... ..................... ..................... ............... Disposition: Fulfilled Carmella Rodgers MD [address] [facility],[address], [place], [address], [employer] 04/16/2023 23:55:06 07/22/2023 text/html CRC Nurse Triage Notes (Rosales Bhatti): Chief Complaints: Abdominal Pain, UTI/Pyelonephritis, Nausea/Vomiting PMH: Hypertension, Diabetes, Heart Disease Allergies: Ceftriaxone Comments: Machine Fur Cleaner verified the member's name//address and phone number. Mbr Sammarinese speaking only, supervisor printing and stamping #[id number] used for triage. Mbr c/o bilateral flank [...] emergency treatment if needed -Ginny Bhatti RN [facility] HPI: 1 wk UTI, h/o same 4mo ago. no vomiting, fever. some nausea. Transportation Driver POC Test Results from Gabe White - ALS Urine Dipstick (1) [19:41] Urine leukocytes: 2+ JUANY Urine nitrites: + NIT Urine urobilinogen: - URO Urine protein: 2+ PRO Urine pH: 5.0 pH Urine blood: - BLO Urine specific gravity: 1.015 SG Urine ketones: - KET Urine bilirubin: - SABRINA Urine glucose: - GLU ..................... ..................... ..................... ..................... ..................... ..................... ............... Transportation Driver Note From Gabe White: Pt reports one [...] +NIT, 2+ PRO. UC sent to [facility]. [facility] to send rx to pharmacy. Pt instructed to stay well hydrated, f/u with PCP and to seek emergent medical care for new or worsening sx, which are reviewed with her. ..................... ..................... ..................... ..................... ..................... ..................... ............... Disposition: Fulfilled Dede Tan MD [address] [place] [address],[address], [place], [address], [employer] 07/22/2023 19:53:01 01/06/2024 text/html CRC Nurse Triage Notes (Santos Burroughs): Reason For Request: Patient has a head ache, body pain, chills, fever, lungs hurt, general illness. Chief Complaints: URI PMH: Hypertension, Diabetes, Heart Disease Allergies: Ceftriaxone Comments: Machine Fur Cleaner verified the Pt.'s name//address and phone number. Education provided on the response time and the Pt. was advised to monitor reported s/s and seek emergency treatment if needed. HPI: ? I 10? HTN (hypertension)G47.00? BkapyfnwK14.2? WvvzrobjivmbA71.90? VhmaglvnyQ26.40? Adrenal zaiifjeiqigwyN16.84? Bariatric surgery npjpckA37.844? Bariatric surgery status complicating ncutmzfmfwC25.9? CHF (congestive heart failure)G89.29? Chronic painF41.1? TeqjjauM71.9? Rheumatoid xvimvtfrsX64.9? Vitamin D cttayypbyjP42.0? Acute stress jfputyptD24.5? Bipolar disorder, current episode depressed, severe, with psychotic oslcznntY41.3? Major depressive disorder, recurrent, severe with psychotic nazpxckdM79.0? Bilateral primary osteoarthritis of kneeD64.9? Anemia, unspecified type.Pt reports feeling unwell with a cough/cold and congestion - Body aches - Fever - SOB - Breathing is non labored and the pt is speaking full sentences - S/S for 3 days. Wellness visit requested. Transportation Driver Organization Information for [employer] Legal Name: [employer]? Address: [address] [place] [address], Wire Setter: Jp Johns MD CLIA No.: [id number] Transportation Driver POC Test Results from [employer] - ROMINA Rapid strep test (14:54:11) Strep: - Rapid COVID antigen (14:54:12) COVID: - Rapid influenza antigen (14:54:15) Flu: - EKG (15:18:24) EKG test performed. Attachments uploaded as part of this test result can be found under Documents section. ..................... ..................... ..................... ..................... ..................... ..................... ............... Transportation Driver Note From [employer]: [facility] makes pt contact 43 yo F CC of congestion and fever.[facility] obtains vital signs. Also obtains [...] pressure suspected from not taking the daily metoprolol.[facility] contacts [facility] and explains above mentioned. [facility] orders a 12 lead to check pts qTc before administration of zofran ODT and levofloxacin. qTc is normal. [facility] sends prescription of levofloxacin to pharmacy which pt is advised to take one tablet by mouth for four days starting tomorrow. [facility] administers 1 zofran ODT and 750mg of levofloxacin which is given in 1 500mg tablet and 1 250mg tablet. PT advised to call 911 or seek a higher level of care such as the emergency department if she begins having chest pain, severe n/v, or sob. PT understands. [facility] clear. ..................... ..................... ..................... ..................... ..................... ..................... ............... 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 (14:39:48) pH: 7.44 pH units pCO2: 36.5 [...] ..................... ..................... ..................... ..................... ..................... ..................... ............... Transportation Driver Note From Gabe White: This 43-year-old female [...] questions and is agreeable to this plan. [facility] Lab Orders: BMP, serum or plasma: Performed [facility] Medication Orders: ketorolac 30 mg/mL injection solution: Administered ondansetron 4 mg disintegrating tablet: Administered ..................... ..................... ..................... ..................... ..................... ..................... ............... [facility] Consulted: Carmella Rodgers ..................... ..................... ..................... ..................... ..................... ..................... ............... Disposition: Fulfilled Carmella Rodgers MD [address] [facility],[address], [place], [address], [employer] 05/13/2024 15:43:55 OBGyn Episode No OBEpisode recorded.
--- OUTSIDE RECORDS SUMMARY | 2024-08-04 09:14 | XMS_ITS | Encounter Summary ---
Author Organization [employer] Address [address] [facility] [address] [place] [address] Care Team Providers Care Pure Pak Machine Operator Name Role Phone Joanne Chino NP Primary Care Provider [phone] Reason for Visit * Reason Comments Med Refill Encounter Details Date Type Department Care Team ([facility] st Contact Info) Description 07/24/2024 Refill [facility] [address] [place], [place] [phone] Joanne Chino NP [address] [place], [place] [phone] Chronic pain syndrome Social History Tobacco Use [...] Description 08/15/2024 3:00 PM EDT Office Visit [facility] [address] [place] [address] Lawrence Herrera 09/02/2024 1:30 PM EDT Office Visit [facility] [address] [place] [address] Joanne Chino NP [address] [place] [address] 09/08/2024 1:00 PM EDT Clinical Support [facility] [address] [place] [address] Franca Murillo, ALBERTO documented as of this encounter Visit Diagnoses Diagnosis Chronic pain syndrome documented in this encounter Additional Health Concerns Assessment Noted Time PHQ-9 Depression Total Score: 0 08/31/19 24 2:53 PM EDT documented as of this encounter Care Teams Pure Pak Machine Operator Relationship Specialty Start Date End Date Joanne Chino NP [address] [place] [address] PCP - General Family Medicine 08/31/23 documented as of this encounter
--- OUTSIDE RECORDS SUMMARY | 2024-08-04 09:15 | XMS_ITS | Encounter Summary ---
Author Organization [employer] Address [address] [facility] 7[address] [place] [address] Care Team Providers Care Straightener Hand Name Role Phone Joanne Chino MARY Primary Care Provider [phone] Reason for Visit * Reason Comments Med Refill Encounter Details Date Type Department Care Team (Late st Contact Info) Description 10/14/2023 Refill [facility] [address] [place], [place] [phone] Ryanne Dao FNP [address] [place], [place] [phone] Chronic pain syndrome; Rheumatoid arthritis involving multiple [...] Description 08/15/2024 3:00 PM EDT Office Visit [facility] [address] [place] [address] Lawrence Herrera 09/02/2024 1:30 PM EDT Office Visit [facility] MED[facility] [address] [place] [phone] Joanne Chino NP [address] [place] [address] 09/08/2024 1:00 PM EDT Clinical Support [address] [address] Franca Murillo RN documented as of this encounter Visit Diagnoses Diagnosis Chronic pain syndrome Rheumatoid arthritis involving multiple sites with positive rheumatoid factor (CMS/HCC) documented in this encounter Additional Health Concerns Assessment Noted Time PHQ-9 Depression Total Score: 0 08/31/19 2:53 PM EDT documented as of this encounter Care Teams Straightener Hand Relationship Specialty Start Date End Date Joanne Chino NP [address] [place] [address] PCP - General Family Medicine 08/31/23 documented as of this encounter
--- OUTSIDE RECORDS SUMMARY | 2024-08-04 09:15 | XMS_ITS | Encounter Summary ---
Author Organization [employer] Address 75 [facility] 7t [place] [address] Care Team Providers Care Bilingual Interpreter Name Role Phone Joanne Chino NP Primary Care Provider [phone] Reason for Visit * Reason Comments Med Refill Encounter Details Date Type Department Care Team ([facility] st Contact Info) Description 01/10/2024 Refill [facility] 230 [place], [place] [phone] Joanne Chino NP 230 [place], [place] [phone] Rheumatoid arthritis involving multiple sites, unspecified whether [...] Description 08/15/2024 3:00 PM EDT Office Visit [facility] ADULT DENTAL [address] [place] [address] Lawrence Herrera 09/02/2024 1:30 PM EDT Office Visit [address] [address] Joanne Chino NP [address] [place] [address] 09/08/2024 1:00 PM EDT Clinical Support [address] [address] Franca Murillo RN documented as of this encounter Visit Diagnoses Diagnosis Rheumatoid arthritis involving multiple sites, unspecified whether rheumatoid factor present ([facility]) Chronic pain syndrome documented in this encounter Additional Health Concerns Assessment Noted Time PHQ-9 Depression Total Score: 0 08/31/19 24 2:53 PM EDT documented as of this encounter Care Teams Bilingual Interpreter Relationship Specialty Start Date End Date Joanne Chino NP [address] [place] [address] PCP - General Family Medicine 08/31/23 documented as of this encounter
--- OUTSIDE RECORDS SUMMARY | 2024-08-04 09:15 | XMS_ITS | Encounter Summary ---
Author Organization [employer] Address 75 [facility] 7t [place] [address] Care Team Providers Care Scout Name Role Phone Joanne Chino NP Primary Care Provider [phone] Reason for Visit * Reason Comments Med Refill Encounter Details Date Type Department Care Team (Late st Contact Info) Description 09/17/2023 Refill [facility] 230 [place], [place] [phone] Joanne Chino NP 230 [place], [place] [phone] Postsurgical malabsorption, not elsewhere classified Social History [...] is your housing situation today? I have chastiy damian 08/31/[address] you [...] Description 08/15/2024 3:00 PM EDT Office Visit [facility] CH[facility] ADULT DENTAL [address] [place] [address] Lawrence Herrera 09/02/2024 1:30 PM EDT Office Visit [facility] [address] [place] [address] Joanne Chino NP 230 [place] [address] 09/08/2024 1:00 PM EDT Clinical Support [facility] [address] [place] [address] Franca Murillo RN documented as of this encounter Visit Diagnoses Diagnosis Postsurgical malabsorption, not elsewhere classified documented in this encounter Additional Health Concerns Assessment Noted Time PHQ-9 Depression Total Score: 0 08/31/19 24 2:53 PM EDT documented as of this encounter Care Teams Scout Relationship Specialty Start Date End Date Joanne Chino NP 230 [place] [address] PCP - General Family Medicine 08/31/23 documented as of this encounter
--- OUTSIDE RECORDS SUMMARY | 2024-08-04 09:15 | XMS_ITS | Encounter Summary ---
Author Organization [employer] Address 75 [facility] 7t [place] [address] Care Team Providers Care Social Security Benefits Interviewer Name Role Phone Joanne Chino NP Primary Care Provider [phone] Reason for Visit * Reason Comments Med Refill Encounter Details Date Type Department Care Team ([facility] st Contact Info) Description 11/14/2023 Refill [facility] 230 [place], [place] [phone] Joanne Chino NP 230 [place], [place] [phone] Rheumatoid arthritis involving multiple sites, unspecified whether [...] Description 08/15/2024 3:00 PM EDT Office Visit [facility] CHC ADULT DENTAL [address] [place] [address] Lawrence Herrera 09/02/2024 1:30 PM EDT Office Visit [facility] [address] [place] [address] Joanne Chino NP [address] [place] [address] 09/08/2024 1:00 PM EDT Clinical Support [address] [address] Franca Murillo, ALBERTO documented as of this encounter Visit Diagnoses Diagnosis Rheumatoid arthritis involving multiple sites, unspecified whether rheumatoid factor present ([facility]) Chronic pain syndrome documented in this encounter Additional Health Concerns Assessment Noted Time PHQ-9 Depression Total Score: 0 08/31/19 24 2:53 PM EDT documented as of this encounter Care Teams Social Security Benefits Interviewer Relationship Specialty Start Date End Date Joanne Chino NP [address] [place] [address] PCP - General Family Medicine 08/31/23 documented as of this encounter
--- OUTSIDE RECORDS SUMMARY | 2024-08-04 09:15 | XMS_ITS | Encounter Summary ---
Author Organization [employer] Address 75 [facility] 7t [place] [address] Care Team Providers Care Head Coach Name Role Phone Ryanne DaoP Primary Care Provider [phone] Joanne Chino NP Primary Care Provider [phone] Reason for Visit * Reason Onset Date Comments Med Refill 03/28/2022 Encounter Details Date Type Department Care Team (Late st Contact Info) Description 03/28/2022 Telephone [facility] MEDICINE 230 [place], [place] [phone] Ryanne Dao FNP 230 [place] [address] Med Refill Social History Tobacco Use Types [...] Description 08/15/2024 3:00 PM EDT Office Visit [facility] ADULT DENTAL [address] [place] [address] Lawrence Herrera 09/02/2024 1:30 PM EDT Office Visit [address] [address] Joanne Chino NP [address] [place] [address] 09/08/2024 1:00 PM EDT Clinical Support [address] [address] Franca Mruillo, ALBERTO documented as of this encounter Visit Diagnoses Not on filedocumented in this encounter Care Teams Head Coach Relationship Specialty Start Date End Date Ryanne Dao FNP [address] [place] [address] PCP - General Family Medicine 02/02/22 08/30/23 Joanne Chino NP [address] [place] [address] PCP - General Family Medicine 08/31/23 documented as of this encounter
--- OUTSIDE RECORDS SUMMARY | 2024-08-04 09:15 | XMS_ITS | Encounter Summary ---
Author Organization [employer] Address 75 [facility] 7t [place] [address] Care Team Providers Care Parachute Manufacturing Supervisor Name Role Phone Joanne Chino NP Primary Care Provider [phone] Reason for Visit * Reason Comments Med Refill Encounter Details Date Type Department Care Team ([facility] st Contact Info) Description 07/24/2024 Refill [facility] MED[facility] 230 [place], [place] [phone] Joanne Chino NP 230 [place], [place] [phone] Chronic pain syndrome Social History Tobacco Use [...] Description 08/15/2024 3:00 PM EDT Office Visit [facility] CHC ADULT DENTAL [address] [place] [address] Lawrence Herrera 09/02/2024 1:30 PM EDT Office Visit [facility] [address] [place] [address] Joanne Chino NP [address] [place] [address] 09/08/2024 1:00 PM EDT Clinical Support [facility] [address] [place] [address] Franca Murillo, ALBERTO documented as of this encounter Visit Diagnoses Diagnosis Chronic pain syndrome documented in this encounter Additional Health Concerns Assessment Noted Time PHQ-9 Depression Total Score: 0 08/31/19 24 2:53 PM EDT documented as of this encounter Care Teams Parachute Manufacturing Supervisor Relationship Specialty Start Date End Date Joanne Chino NP [address] [place] [address] PCP - General Family Medicine 08/31/23 documented as of this encounter
--- OUTSIDE RECORDS SUMMARY | 2024-08-04 09:15 | XMS_ITS | Encounter Summary ---
Author Organization [facility] Address [address] [place] [address] Care Team Providers Care Radiographer Name Role Phone Joanne Chino Primary Care Provider [phone] Encounter Details Date Type Department Care Team (Late Contact Info) Description 07/28/2024 Orders Only [facility] [address] [place] [address] Top Lift And Automatic Window Repairer: Teresa Charles PA [address] [place] [address] Social History Tobacco Use Types Packs/Day Years [...] Info) Description 10/10/2024 2:00 PM EDT Follow-Up [facility] [address] [place] [address] Top Lift And Automatic Window Repairer: Teresa Charles PA [address] [place] [address] [phone] documented as of this encounter Visit Diagnoses Not on filedocumented in this encounter Care Teams Radiographer Relationship Specialty Start Date End Date Joanne Chino [address] [place] [address] PCP - General Family Medicine 04/03/24 documented as of this encounter
--- OUTSIDE RECORDS SUMMARY | 2024-08-04 09:15 | XMS_ITS | Encounter Summary ---
Author Organization [employer] Address 75 [facility] 7t [place] [address] Care Team Providers Care Hog Driver Name Role Phone Ryanne DaoP Primary Care Provider [phone] Joanne Chino NP Primary Care Provider [phone] Reason for Visit * Reason Comments Med Refill Encounter Details Date Type Department Care Team (Late st Contact Info) Description 05/22/2022 Refill [facility] MEDICINE 230 [place] [address] Ryanne Dao FNP 230 [place] [address] Rheumatoid arthritis involving multiple sites, unspecified whether [...] Description 08/15/2024 3:00 PM EDT Office Visit [facility] CHC ADULT DENTAL [address] [place] [address] Lawrence Herrera 09/02/2024 1:30 PM EDT Office Visit [address] [address] Joanne Chino NP 230 [place] [address] 09/08/2024 1:00 PM EDT Clinical Support [address] [address] Franca Murillo RN documented as of this encounter Visit Diagnoses Diagnosis Rheumatoid arthritis involving multiple sites, unspecified whether rheumatoid factor present ([facility]) Chronic pain syndrome documented in this encounter Care Teams Hog Driver Relationship Specialty Start Date End Date Ryanne Dao FNP [address] [place] [address] PCP - General Family Medicine 02/02/22 08/30/23 Joanne Chino NP [address] [place] [address] PCP - General Family Medicine 08/31/23 documented as of this encounter
--- OUTSIDE RECORDS SUMMARY | 2024-08-04 09:15 | XMS_ITS | Encounter Summary ---
Author Organization [employer] Address 75 [facility] 7t [place] [address] Care Team Providers Care Career Placement Specialist Name Role Phone Joanne Chino NP Primary Care Provider [phone] Reason for Visit * Reason Comments Med Refill Encounter Details Date Type Department Care Team (Late st Contact Info) Description 04/03/2024 Refill [facility] MEDICINE 230 [place], [place] [phone] Joanne Chino NP 230 [place], [place] [phone] Postsurgical malabsorption, not elsewhere classified; Chronic pain [...] Description 08/15/2024 3:00 PM EDT Office Visit [facility] CHC ADULT DENTAL [address] [place] [address] Lawrence Herrera 09/02/2024 1:30 PM EDT Office Visit [address] [address] Joanne Chino NP [address] [place] [address] 09/08/2024 1:00 PM EDT Clinical Support [address] [address] Franca Murillo RN documented as of this encounter Visit Diagnoses Diagnosis Postsurgical malabsorption, not elsewhere classified Chronic pain syndrome documented in this encounter Additional Health Concerns Assessment Noted Time PHQ-9 Depression Total Score: 0 08/31/19 24 2:53 PM EDT documented as of this encounter Care Teams Career Placement Specialist Relationship Specialty Start Date End Date Joanne Chino NP [address] [place] [address] PCP - General Family Medicine 08/31/23 documented as of this encounter
--- OUTSIDE RECORDS SUMMARY | 2024-08-04 09:15 | XMS_ITS | Encounter Summary ---
Author Organization [facility] Address [address] [place] [address] Care Team Providers Care Panel Lay Up Worker Name Role Phone Joanne Chino Primary Care Provider [phone] Reason for Visit * Reason Onset Date Comments Prior Authorization 07/23/2024 upadacitinib ER (RINVOQ) 15 mg tablet Encounter Details Date Type Department Care Team (Late st Contact Info) Description 07/23/2024 Telephone [facility] [address] [place], [place] [phone] Locksmith: Sarai Whitlock Prior Authorization (upadacitinib ER (RINVOQ) [...] ER (RINVOQ) 15 mg tablet, #30/30, through [employer] [PA # Not provided]. Effective 04/24/2024 - 07/23/2025. May fill with [facility]. Copay $0.00. * Telephone Encounter - Sarai Hurt - 07/23/2024 12:06 PM EDT Submitted PA via Cover My Meds. Awaiting insurer's determination. Will update in 24-48 Hours. documented in this encounter Plan of Treatment Upcoming Encounters Date Type Department Care Team (Late st Contact Info) Description 10/10/2024 2:00 PM EDT Follow-Up [facility] [address] [place] [address] [phone] Locksmith: Teresa Charles PA [address] [place] [address] documented as of this encounter Visit Diagnoses Not on filedocumented in this encounter Care Teams Panel Lay Up Worker Relationship Specialty Start Date End Date Joanne Chino 230 [place] [address] PCP - General Family Medicine 04/03/24 documented as of this encounter
--- OUTSIDE RECORDS SUMMARY | 2024-08-04 09:15 | XMS_ITS | Encounter Summary ---
Author Organization [employer] Address 75 [facility] 7t [place] [address] Care Team Providers Care Upper Inspector Name Role Phone Joanne Chino MARY Primary Care Provider [phone] Reason for Visit * Reason Comments Med Refill Encounter Details Date Type Department Care Team (Late st Contact Info) Description 09/02/2023 Refill [facility] 230 [place], [place] [phone] Ryanne Dao FNP 230 [place], [place] [phone] Social History Tobacco Use Types Packs/Day Years [...] Description 08/15/2024 3:00 PM EDT Office Visit [facility] CHC ADULT DENTAL [address] [place] [address] Lawrence Herrera 09/02/2024 1:30 PM EDT Office Visit [facility] MED[facility]INE [address] [place] [address] Joanne Chino NP [address] [place] [address] 09/08/2024 1:00 PM EDT Clinical Support [address] [address] Franca Murillo RN documented as of this encounter Visit Diagnoses Not on filedocumented in this encounter Additional Health Concerns Assessment Noted Time PHQ-9 Depression Total Score: 0 08/31/19 2:53 PM EDT documented as of this encounter Care Teams Upper Inspector Relationship Specialty Start Date End Date Joanne Chino NP [address] [place] [address] PCP - General Family Medicine 08/31/23 documented as of this encounter
--- OUTSIDE RECORDS SUMMARY | 2024-08-04 09:15 | XMS_ITS | Encounter Summary ---
Author Organization [employer] Address 75 [facility] 7t [place] [address] Care Team Providers Care Top Lift Trimmer Name Role Phone Ryanne Dao DELIVERY REP Primary Care Provider [phone] Joanne Chino NP Primary Care Provider [phone] Reason for Visit * Reason Comments Med Refill Encounter Details Date Type Department Care Team ([facility] st Contact Info) Description 07/06/2023 Refill [facility] MEDICINE 230 [place], [place] [phone] Name, MD Juan Pablo 230 [place] [address] Rheumatoid arthritis involving multiple sites, unspecified whether [...] problems with any of the following? Mold;Lead [place] or Pipes 05/18/2023 Food Insecurity Answer Date [...] Description 08/15/2024 3:00 PM EDT Office Visit [facility] CHC ADULT DENTAL [address] [place], [place] [phone] Lawrence Herrera 09/02/2024 1:30 PM EDT Office Visit [facility] MEDICINE [address] [place] [address] Joanne Chino NP [address] [place] [address] 09/08/2024 1:00 PM EDT Clinical Support [address] [address] Franca Murillo RN documented as of this encounter Visit Diagnoses Diagnosis Rheumatoid arthritis involving multiple sites, unspecified whether rheumatoid factor present ([facility]) Chronic pain syndrome documented in this encounter Additional Health Concerns Assessment Noted Time PHQ-9 Depression Total Score: 24 024 2:10 PM EST documented as of this encounter Care Teams Top Lift Trimmer Relationship Specialty Start Date End Date Ryanne Dao FNP [address] [place] [address] PCP - General Family Medicine 02/02/22 08/30/23 Joanne Chino NP [address] [place] [address] PCP - General Family Medicine 08/31/23 documented as of this encounter
--- OUTSIDE RECORDS SUMMARY | 2024-08-04 09:15 | XMS_ITS | Encounter Summary ---
Author Organization [employer] Address 75 [facility] 7t [place] [address] Care Team Providers Care Phthalic Acid Purifier Name Role Phone Ryanne Dao [employer] Primary Care Provider [phone] Joanne Chino NP Primary Care Provider [phone] Encounter Details Date Type Department Care Team (Late st Contact Info) Description 02/04/[address] [address] ProviderBrigido MD Social History Tobacco Use Types [...] Encounters Date Type Department Care Team (Late Contact Info) Description 08/15/2024 3:00 PM EDT Office Visit [facility] CHC ADULT DENTAL [address] [place] [address] Lawrence Herrera 09/02/2024 1:30 PM EDT Office Visit [address] [address] Joanne Chino NP 230 [place] [address] 09/08/2024 1:00 PM EDT Clinical Support [address] [address] Franca Murillo RN documented as of this encounter Visit Diagnoses Not on filedocumented in this encounter Care Teams Phthalic Acid Purifier Relationship Specialty Start Date End Date Ryanne Dao FNP 230 [place] [address] PCP - General Family Medicine 02/02/22 08/30/23 Joanne Chino NP 230 [place] [address] PCP - General Family Medicine 08/31/23 documented as of this encounter
--- OUTSIDE RECORDS SUMMARY | 2024-08-04 09:15 | XMS_ITS | Encounter Summary ---
Author Organization [employer] Address 75 [facility] 7t [place] [address] Care Team Providers Care Metal Patternmaker Apprentice Name Role Phone Ryanne DaoP Primary Care Provider [phone] Joanne Chino NP Primary Care Provider [phone] Reason for Visit * Reason Onset Date Comments Reschedule 05/23/2023 Encounter Details Date Type Department Care Team (Late st Contact Info) Description 05/23/2023 Telephone [facility] MEDICINE 230 [place], [place] [phone] Ryanne Dao FNP 230 [place] [address] Reschedule Social History Tobacco Use Types Packs/Day [...] problems with any of the following? Mold;Lead [place] or Pipes 05/18/2023 Food Insecurity Answer [...] AM EST Tc from pt requesting r/s CAKE INSPECTOR appt. Pt sick. documented in this encounter Plan of Treatment Upcoming Encounters Date Type Department Care Team (Late st Contact Info) Description 08/15/2024 3:00 PM EDT Office Visit [facility] CHC ADULT DENTAL [address] [place] [address] Lawrence Herrera 09/02/2024 1:30 PM EDT Office Visit [facility] MEDICINE [address] [place] [address] Joanne Chino NP 230 [place] [address] 09/08/2024 1:00 PM EDT Clinical Support [facility] MED[facility] [address] [place] [address] Franca Murillo RN documented as of this encounter Visit Diagnoses Not on filedocumented in this encounter Additional Health Concerns Assessment Noted Time PHQ-9 Depression Total Score: 24 024 2:10 PM EST documented as of this encounter Care Teams Metal Patternmaker Apprentice Relationship Specialty Start Date End Date Ryanne Dao FNP 230 [place] [address] PCP - General Family Medicine 02/02/22 08/30/23 Joanne Chino NP 230 [place] [address] PCP - General Family Medicine 08/31/23 documented as of this encounter
--- OUTSIDE RECORDS SUMMARY | 2024-08-04 09:15 | XMS_ITS | Encounter Summary ---
Author Organization [employer] Address 75 [facility] 7t [place] [address] Care Team Providers Care Appliance Parts Counter Clerk Name Role Phone Ryanne DaoP Primary Care Provider [phone] Joanne Chino NP Primary Care Provider [phone] Reason for Visit * Reason Onset Date Comments Question 08/10/2023 Encounter Details Date Type Department Care Team ([facility] st Contact Info) Description 08/10/2023 Telephone [facility] MEDICINE 230 [place], [place] [phone] Ryanne Dao FNP 230 [place] [address] Question Social History Tobacco Use Types Packs/Day [...] problems with any of the following? Mold;Lead [place] or Pipes 05/18/2023 Food Insecurity Answer Date [...] regards to the message below please call [phone] * Telephone Encounter - Lizette Kelley RN - 08/10/2023 3:19 PM EDT Please review and advise for below request. * Telephone Encounter - Elver Merino - 08/10/2023 2:43 PM EDT Tc from [place] from [facility] requesting Providers thought on if the patient is capable of having a motor scooter documented in this encounter Plan of Treatment Upcoming Encounters Date Type Department Care Team (Late st Contact Info) Description 08/15/2024 3:00 PM EDT Office Visit [facility] CHC ADULT DENTAL 505 [place] [address] Lawrence Herrera 09/02/2024 1:30 PM EDT Office Visit [facility] MEDICINE 230 [place] [address] Joanne Chino, MARY 230 [place] [address] 09/08/2024 1:00 PM EDT Clinical Support [facility] MEDICINE [address] [place] [address] Franca Murillo, RN documented as of this encounter Visit Diagnoses Not on filedocumented in this encounter Additional Health Concerns Assessment Noted Time PHQ-9 Depression Total Score: 24 024 2:10 PM EST documented as of this encounter Care Teams Appliance Parts Counter Clerk Relationship Specialty Start Date End Date Ryanne Dao FNP 230 [place] [address] PCP - General Family Medicine 02/02/22 08/30/23 Joanne Chino NP 230 [place] [address] PCP - General Family Medicine 08/31/23 documented as of this encounter
--- OUTSIDE RECORDS SUMMARY | 2024-08-04 09:15 | XMS_ITS | Encounter Summary ---
Author Organization [email or web address] Address [address] [facility] 7t [place] [address] Care Team Providers Care Spare Fixer Name Role Phone Joanne Chino NP Primary Care Provider [phone] Encounter Details Date Type Department Care Team ([facility] st Contact Info) Description 03/03/2024 Telephone [facility] 230 [place], [place] [phone] Joanne Chino NP 230 [place], [place] [phone] Social History Tobacco Use Types Packs/Day Years [...] 3:00 PM EDT Office Visit [facility] ADULT DENTAL [address] [place] [address] Lawrence Herrera 09/02/2024 1:30 PM EDT Office Visit [address] [address] Joanne Chino NP [address] [place] [address] 09/08/2024 1:00 PM EDT Clinical Support [address] [address] Franca Murillo RN documented as of this encounter Visit Diagnoses Not on filedocumented in this encounter Additional Health Concerns Assessment Noted Time PHQ-9 Depression Total Score: 0 08/31/19 24 2:53 PM EDT documented as of this encounter Care Teams Spare Fixer Relationship Specialty Start Date End Date Joanne Chino NP [address] [place] [address] PCP - General Family Medicine 08/31/23 documented as of this encounter
--- OUTSIDE RECORDS SUMMARY | 2024-08-04 09:15 | XMS_ITS | Encounter Summary ---
Author Organization [employer] Address 75 [facility] 7t [place] [address] Care Team Providers Care Hack Driver Name Role Phone Ryanne Dao ROCKET ASSEMBLY OPERATOR Primary Care Provider [phone] Joanne Chino NP Primary Care Provider [phone] Encounter Details Date Type Department Care Team (Late st Contact Info) Description 02/27/2022 Orders Only [facility] [address] [place] [address] Ryanne Dao FNP [address] [place] [address] Rheumatoid arthritis involving multiple sites, unspecified whether [...] Description 08/15/2024 3:00 PM EDT Office Visit [facility] [address] [place] [address] Lawrence Herrera 09/02/2024 1:30 PM EDT Office Visit [facility] [address] [place] [address] Joanne Chino NP [address] [place] [address] 09/08/2024 1:00 PM EDT Clinical Support [facility] [address] [place] [address] Franca Murillo RN documented as of this encounter Procedures Procedure Name Priority Date/Time Associated Diagnosis Comments ACTH STIMULATION, 3 SPECIMENS Routine 06/23/2022 9:00 AM EDT Rheumatoid arthritis involving multiple sites, unspecified whether rheumatoid factor present (CMS/HCC) GLUCOSE, RANDOM Routine 05/19/2022 7:22 AM EST Rheumatoid arthritis involving multiple sites, unspecified whether rheumatoid factor present (CMS/[facility]) documented in this encounter Results * (ABNORMAL) ACTH Stimulation, 3 Specimens (06/23/2022 9:00 AM EDT) Time 1 0900 [facility] Cortisol Baseline 5.1 mcg/dL [facility] Cortisol 30 Minute Time 0930 [facility] Cortisol 30 Minute 13.8(A) mcg/dL [facility] Cortisol 60 Minute Time 1000 [facility] Cortisol 60 Minute 8.6(A) mcg/dL [facility] ACTH Stim Comment See Below [facility] Comment:Normal Response: Any value > or = 20.0The work by Ronit et al (J Clin Endo Soc 5: 1-11) suggests that a cortisol response of > 14.6 mcg/dLat 30 minutes following stimulation with ACTH beemployed as criteria to establish adrenal sufficiency.THIS TEST WAS PERFORMED AT:[employer] [place] [id number] SAWYER MD Med (ACTH) Time 0901 [facility] 06/23/2022 9:00 AM EDT 06/23/2022 9:03 AM EDT [facility] External Provider LAB BLO OD ORDERABLES Final Result Performing Organization Address [facility]/ZIP Co de Phone Number [facility] [address] [place] [address] [phone] * Glucose, Random (05/19/2022 7:22 AM EST) Glucose 110 60 - 115 mg/dL [facility] 05/19/2022 7:22 AM EST 05/19/2022 7:22 AM EST [facility] External Provider LAB BLO OD ORDERABLES Final Result Performing Organization Address [facility] Co de Phone Number [facility] [address] [place] [phone] documented in this encounter Visit Diagnoses Diagnosis Rheumatoid arthritis involving multiple sites, unspecified whether rheumatoid factor present ([facility]) Chronic pain syndrome documented in this encounter Care Teams Hack Driver Relationship Specialty Start Date End Date Ryanne Dao FNP [address] [place] [address] PCP - General Family Medicine 02/02/22 08/30/23 Joanne Chino NP [address] [place] [address] PCP - General Family Medicine 08/31/23 documented as of this encounter
--- OUTSIDE RECORDS SUMMARY | 2024-08-04 09:15 | XMS_ITS | Encounter Summary ---
Author Organization [employer] Address 75 [facility] 7t [place] [address] Care Team Providers Care Glass Pulverizer Equipment Operator Name Role Phone Joanne Chino NP Primary Care Provider [phone] Reason for Visit * Reason Comments Med Refill Encounter Details Date Type Department Care Team ([facility] st Contact Info) Description 06/26/2024 Refill [facility] MED[facility] [address] [place], [place] [phone] Joanne Chino NP [address] [place], [place] [phone] Chronic pain syndrome Social History Tobacco Use [...] Description 08/15/2024 3:00 PM EDT Office Visit [facility] CH[facility] ADULT DENTAL [address] [place] [address] Lawrence Herrera 09/02/2024 1:30 PM EDT Office Visit [facility] MED[facility]INE [address] [place] [address] Joanne Chino NP [address] [place] [address] 09/08/2024 1:00 PM EDT Clinical Support [facility] [address] [place] [address] Franca Murillo, ALBERTO documented as of this encounter Visit Diagnoses Diagnosis Chronic pain syndrome documented in this encounter Additional Health Concerns Assessment Noted Time PHQ-9 Depression Total Score: 0 08/31/19 24 2:53 PM EDT documented as of this encounter Care Teams Glass Pulverizer Equipment Operator Relationship Specialty Start Date End Date Joanne Chino NP [address] [place] [address] PCP - General Family Medicine 08/31/23 documented as of this encounter
--- OUTSIDE RECORDS SUMMARY | 2024-08-04 09:15 | XMS_ITS | Encounter Summary ---
Author Organization [employer] Address 75 [facility] 7t [place] [address] Care Team Providers Care Application Support Analyst Name Role Phone Joanne Chino NP Primary Care Provider Reason for Visit * Reason Comments Med Refill Encounter Details Date Type Department Care Team ([facility] st Contact Info) Description 05/02/2024 Refill [facility] MED[facility] 230 [place], [place] [phone] Joanne Chino NP [address] [place], [place] [phone] Chronic pain syndrome Social History Tobacco Use [...] Description 08/15/2024 3:00 PM EDT Office Visit [facility] CHC ADULT DENTAL [address] [place] [address] Lawrence Herrera 09/02/2024 1:30 PM EDT Office Visit [facility] MED[facility]INE [address] [place] [address] Joanne Chino NP [address] [place] [address] 09/08/2024 1:00 PM EDT Clinical Support [facility] [address] [place] [address] Franca Murillo, ALBERTO documented as of this encounter Visit Diagnoses Diagnosis Chronic pain syndrome documented in this encounter Additional Health Concerns Assessment Noted Time PHQ-9 Depression Total Score: 0 08/31/19 24 2:53 PM EDT documented as of this encounter Care Teams Application Support Analyst Relationship Specialty Start Date End Date Joanne Chino NP [address] [place] [address] PCP - General Family Medicine 08/31/23 documented as of this encounter
--- OUTSIDE RECORDS SUMMARY | 2024-08-04 09:15 | XMS_ITS | Encounter Summary ---
Author Organization [facility] Address [address] [place] [address] Care Team Providers Care Special Tester Name Role Phone SandrineJoanne arora Primary Care Provider [phone] Encounter Details Date Type Department Care Team (Late st Contact Info) Description 07/24/2024 Telephone [facility] [address] [place] [address] Jail Guard: Teresa Charles PA [address] [place], [place] [phone] Social History Tobacco Use Types Packs/Day Years [...] encounter Miscellaneous Notes * Telephone Encounter - MIKE Minaya - 07/28/2024 1:37 PM EDT I called Joanne Lulú for second time-returning her call regarding mutual patient-left message * Telephone Encounter - Isa Swenson - 07/24/2024 2:05 PM EDT Who is calling: [facility] Call back Number: [phone] The reason for call: [place] patient: Gita Watts -Medication Questions/Refills: Touch base regarding patient current level of pain from a rheumatological standpoint and pain management with RA. documented in this encounter Plan of Treatment Upcoming Encounters Date Type Department Care Team (Late st Contact Info) Description 10/10/2024 2:00 PM EDT Follow-Up [facility] [address] [place] [address] Jail Guard: Teresa Charles PA [address] [place] [phone] documented as of this encounter Visit Diagnoses Not on filedocumented in this encounter Care Teams Special Tester Relationship Specialty Start Date End Date Joanne Chino [address] [place] [address] PCP - General Family Medicine 04/03/24 documented as of this encounter
--- OUTSIDE RECORDS SUMMARY | 2024-08-04 09:15 | XMS_ITS | Encounter Summary ---
Author Organization [employer] Address 75 [facility] 7t [place] [address] Care Team Providers Care Instructor Warper Name Role Phone Joanne Chino NP Primary Care Provider Reason for Visit * Reason Comments Med Refill Encounter Details Date Type Department Care Team ([facility] st Contact Info) Description 05/02/2024 Refill [facility] MEDICINE [address] [place], [place] [phone] Joanne Chino NP [address] [place], [place] [phone] Chronic pain syndrome Social History Tobacco Use [...] Description 08/15/2024 3:00 PM EDT Office Visit [facility] CHC ADULT DENTAL [address] [place] [address] Lawrence Herrera 09/02/2024 1:30 PM EDT Office Visit [facility] MEDICINE [address] [place] [address] Joanne Chino NP [address] [place] [address] 09/08/2024 1:00 PM EDT Clinical Support [facility] [address] [place] [address] Franca Murillo, ALBERTO documented as of this encounter Visit Diagnoses Diagnosis Chronic pain syndrome documented in this encounter Additional Health Concerns Assessment Noted Time PHQ-9 Depression Total Score: 0 08/31/19 24 2:53 PM EDT documented as of this encounter Care Teams Instructor Warper Relationship Specialty Start Date End Date Joanne Chino NP [address] [place] [address] PCP - General Family Medicine 08/31/23 documented as of this encounter
--- OUTSIDE RECORDS SUMMARY | 2024-08-04 09:15 | XMS_ITS | Encounter Summary ---
Author Organization [employer] Address 75 [facility] 7t [place] [address] Care Team Providers Care Elevator Erector Helper Name Role Phone Ryanne Dao Primary Care Provider [phone] Joanne Chino NP Primary Care Provider [phone] Reason for Visit * Reason Comments Med Change Request Encounter Details Date Type Department Care Team ([facility] st Contact Info) Description 06/07/2023 Refill [facility] MED[facility]INE [address] [place], [place] [phone] Ryanne Dao FNP [address] [place] [address] Rheumatoid arthritis involving multiple sites, unspecified whether [...] problems with any of the following? Mold;Lead [place] or [place]ipes 05/18/2023 Food Insecurity Answer Date [...] Description 08/15/2024 3:00 PM EDT Office Visit [facility] ADULT DENTAL [address] [place] [address] Lawrence Herrera 09/02/2024 1:30 PM EDT Office Visit [facility] MED[facility]INE [address] [place] [address] Joanne Chino NP [address] [place] [address] 09/08/2024 1:00 PM EDT Clinical Support [address] [address] Franca Murillo RN documented as of this encounter Visit Diagnoses Diagnosis Rheumatoid arthritis involving multiple sites, unspecified whether rheumatoid factor present ([facility]) Chronic pain syndrome documented in this encounter Additional Health Concerns Assessment Noted Time PHQ-9 Depression Total Score: 24 024 2:10 PM EST documented as of this encounter Care Teams Elevator Erector Helper Relationship Specialty Start Date End Date Ryanne Dao FNP [address] [place] [address] PCP - General Family Medicine 02/02/22 08/30/23 Joanne Chino NP [address] [place] [address] PCP - General Family Medicine 08/31/23 documented as of this encounter
--- OUTSIDE RECORDS SUMMARY | 2024-08-04 09:15 | XMS_ITS | Encounter Summary ---
Author Organization [facility] Address [address] [place] [address] Care Team Providers Care Turkey Boner Name Role Phone Joanne Chino Primary Care Provider [phone] Reason for Visit * Reason Onset Date Comments PAC Urgent Appt Request 07/15/2024 Encounter Details Date Type Department Care Team (Late st Contact Info) Description 07/15/2024 Telephone [facility] [address] [place], [place] [phone] Regional Sales Director: Chela Gabriel Telephone Intake, Staff PAC Urgent [...] the pt to schedule a sooner appt #[phone] documented in this encounter Plan of Treatment Upcoming Encounters Date Type Department Care Team (Late st Contact Info) Description 10/10/2024 2:00 PM EDT Follow-Up [facility] [address] [place] [address] Regional Sales Director: Teresa Charles PA [address] [place] [address] documented as of this encounter Visit Diagnoses Not on filedocumented in this encounter Care Teams Turkey Boner Relationship Specialty Start Date End Date Joanne Chino [address] [place] [address] PCP - General Family Medicine 04/03/24 documented as of this encounter
--- OUTSIDE RECORDS SUMMARY | 2024-08-04 09:15 | XMS_ITS | Encounter Summary ---
Author Organization [employer] Address 75 [facility] 7t [place] [address] Care Team Providers Care Painting Supervisor Name Role Phone Ryanne DaoP Primary Care Provider [phone] Joanne Chino NP Primary Care Provider [phone] Reason for Visit * Reason Onset Date Comments RXN to stunt performer Injection 02/21/2023 Encounter Details Date Type Department Care Team (Late st Contact Info) Description 02/21/2023 Telephone [facility] MED[facility] [address] [place], [place] [phone] Ryanne Dao FNP [address] [place] [address] RXN to stunt performer Injection Social History Tobacco Use Types Packs/Day [...] to pt. Pt stated she saw the stunt performer and they gave her some different type of injection. She now c/o being all swollen and unable to move. Asked her if she called her stunt performer and reported this, she said she called [...] regarding current condition. Please contact pt at [phone]. documented in this encounter Plan of Treatment Upcoming Encounters Date Type Department Care Team (Late st Contact Info) Description 08/15/2024 3:00 PM EDT Office Visit [facility] ADULT DENTAL [address] [place] [address] Lawrence Herrera 09/02/2024 1:30 PM EDT Office Visit [facility] MED[facility] [address] [place] [address] Joanne Chino NP [address] [place] [address] 09/08/2024 1:00 PM EDT Clinical Support [facility] [address] [place] [address] Franca Murillo, RN documented as of this encounter Visit Diagnoses Not on filedocumented in this encounter Additional Health Concerns Assessment Noted Time PHQ-9 Depression Total Score: 24 023 11:33 AM EST documented as of this encounter Care Teams Painting Supervisor Relationship Specialty Start Date End Date Ryanne Dao FNP [address] [place] [address] PCP - General Family Medicine 02/02/22 08/30/23 Joanne Chino NP [address] [place] [address] PCP - General Family Medicine 08/31/23 documented as of this encounter
--- OUTSIDE RECORDS SUMMARY | 2024-08-04 09:15 | XMS_ITS | Encounter Summary ---
Author Organization [employer] Address 75 [facility] 7t [place] [address] Care Team Providers Care Sales Order Clerk Name Role Phone Ryanne Dao CHURNER Primary Care Provider [phone] Joanne Chino NP Primary Care Provider [phone] Reason for Visit * Reason Comments Med Refill Encounter Details Date Type Department Care Team ([facility] st Contact Info) Description 07/05/2023 Refill [facility] MED[facility]INE [address] [place], [place] [phone] Name, MD Juan Pablo [address] [place] [address] Rheumatoid arthritis involving multiple sites, unspecified whether [...] problems with any of the following? Mold;Lead [place] or Pipes 05/18/2023 Food Insecurity Answer Date [...] Description 08/15/2024 3:00 PM EDT Office Visit [facility] CH[facility] ADULT DENTAL [address] [place], [place] [phone] Lawrence Herrera 09/02/2024 1:30 PM EDT Office Visit [facility] MED[facility]INE [address] [place] [address] Joanne Chino NP [address] [place] [address] 09/08/2024 1:00 PM EDT Clinical Support [address] [address] Franca Murillo RN documented as of this encounter Visit Diagnoses Diagnosis Rheumatoid arthritis involving multiple sites, unspecified whether rheumatoid factor present (CMS/[facility]) Chronic pain syndrome documented in this encounter Additional Health Concerns Assessment Noted Time PHQ-9 Depression Total Score: 24 024 2:10 PM EST documented as of this encounter Care Teams Sales Order Clerk Relationship Specialty Start Date End Date Ryanne Dao FNP [address] [place] [address] PCP - General Family Medicine 02/02/22 08/30/23 Joanne Chino NP [address] [place] [address] PCP - General Family Medicine 08/31/23 documented as of this encounter
--- OUTSIDE RECORDS SUMMARY | 2024-08-04 09:15 | XMS_ITS | Encounter Summary ---
Author Organization [employer] Address [address] [facility] [address] 7t [place] [address] Care Team Providers Care Engraver Seals Name Role Phone Ryanne Dao Primary Care Provider [phone] Joanne Chino NP Primary Care Provider [phone] Encounter Details Date Type Department Care Team (Late st Contact Info) Description 12/27/2022 Orders Only [facility] [address] [place], [place] [phone] Ryanne Dao FNP [address] [place] [address] Social History Tobacco Use Types Packs/Day Years [...] Description 08/15/2024 3:00 PM EDT Office Visit [facility] CH[facility] ADULT DENTAL [address] [place] [address] Lawrence Herrera 09/02/2024 1:30 PM EDT Office Visit [facility] MEDICINE [address] [place] [address] Joanne hCino NP [address] [place] [address] 09/08/2024 1:00 PM EDT Clinical Support [address] [address] Franca Murillo, ALBERTO documented as of this encounter Visit Diagnoses Not on filedocumented in this encounter Additional Health Concerns Assessment Noted Time PHQ-9 Depression Total Score: 24 023 11:33 AM EST documented as of this encounter Care Teams Engraver Seals Relationship Specialty Start Date End Date Ryanne Dao FNP [address] [place] [address] PCP - General Family Medicine 02/02/22 08/30/23 Joanne Chino NP [address] [place] [address] PCP - General Family Medicine 08/31/23 documented as of this encounter
--- OUTSIDE RECORDS SUMMARY | 2024-08-04 09:15 | XMS_ITS | Encounter Summary ---
Author Organization [employer] Address 75 [facility] 7t [place] [address] Care Team Providers Care Human Services Program Specialist Name Role Phone Ryanne Dao DRAFTER CASTINGS Primary Care Provider [phone] Joanne Chino NP Primary Care Provider [phone] Reason for Visit * Reason Comments Med Refill Encounter Details Date Type Department Care Team ([facility] st Contact Info) Description 07/05/2023 Refill [facility] MEDICINE 230 [place], [place] [phone] Name, MD Juan Pablo [address] [place] [address] Rheumatoid arthritis involving multiple sites, unspecified whether [...] problems with any of the following? Mold;Lead [place] or Pipes 05/18/2023 Food Insecurity Answer [...] 08/15/2024 3:00 PM EDT Office Visit [facility] CHC ADULT DENTAL [address] [place], [place] [phone] Lawrence Herrera 09/02/2024 1:30 PM EDT Office Visit [facility] MEDICINE [address] [place] [address] Joanne Chino NP [address] [place] [address] 09/08/2024 1:00 PM EDT Clinical Support [address] [address] Franca Murillo RN documented as of this encounter Visit Diagnoses Diagnosis Rheumatoid arthritis involving multiple sites, unspecified whether rheumatoid factor present (CMS/[facility]) Chronic pain syndrome documented in this encounter Additional Health Concerns Assessment Noted Time PHQ-9 Depression Total Score: 24 024 2:10 PM EST documented as of this encounter Care Teams Human Services Program Specialist Relationship Specialty Start Date End Date Ryanne Dao FNP [address] [place] [address] PCP - General Family Medicine 02/02/22 08/30/23 Joanne Chino NP [address] [place] [address] PCP - General Family Medicine 08/31/23 documented as of this encounter
--- OUTSIDE RECORDS SUMMARY | 2024-08-04 09:15 | XMS_ITS | Encounter Summary ---
Author Organization [employer] Address [address] [facility] [address] 7t [place] [address] Care Team Providers Care Tie Layer Name Role Phone Ryanne Dao BUSINESS PLANNING MANAGER Primary Care Provider [phone] Joanne Chino NP Primary Care Provider [phone] Encounter Details Date Type Department Care Team (Late Contact Info) Description 07/05/2022 Orders Only [facility] [address] [place], [place] [phone] Corina Watters FNP Social History Tobacco Use [...] Upcoming Encounters Date Type Department Care Team ([facility] Contact Info) Description 08/15/2024 3:00 PM EDT Office Visit [facility] ADULT DENTAL [address] [place], [place] [phone] Lawrence Herrera 09/02/2024 1:30 PM EDT Office Visit [address] [address] Joanne Chino NP [address] [place] [address] 09/08/2024 1:00 PM EDT Clinical Support [address] [address] Franca Murillo, ALBERTO documented as of this encounter Visit Diagnoses Not on filedocumented in this encounter Additional Health Concerns Assessment Noted Time PHQ-9 Depression Total Score: 24 023 11:33 AM EST documented as of this encounter Care Teams Tie Layer Relationship Specialty Start Date End Date Ryanne Dao FNP [address] [place] [address] PCP - General Family Medicine 02/02/22 08/30/23 Joanne Chino NP [address] [place] [address] PCP - General Family Medicine 08/31/23 documented as of this encounter
--- OUTSIDE RECORDS SUMMARY | 2024-08-04 09:15 | XMS_ITS | Encounter Summary ---
Author Organization [employer] Address 75 [facility] 7t [place] [address] Care Team Providers Care Product Blending Supervisor Name Role Phone Jonane Chino NP Primary Care Provider [phone] Reason for Visit * Reason Comments Med Refill Encounter Details Date Type Department Care Team ([facility] st Contact Info) Description 05/26/2024 Refill [facility] MEDICINE [address] [place], [place] [phone] Joanne Chino NP [address] [place], [place] [phone] Chronic pain syndrome Social History Tobacco Use [...] Description 08/15/2024 3:00 PM EDT Office Visit [facility] CHC ADULT DENTAL [address] [place] [address] Lawrence Herrera 09/02/2024 1:30 PM EDT Office Visit [facility] MEDICINE [address] [place] [address] Joanne Chino NP [address] [place] [address] 09/08/2024 1:00 PM EDT Clinical Support [facility] MEDICINE [address] [place] [address] Franca Murillo, ALBERTO documented as of this encounter Visit Diagnoses Diagnosis Chronic pain syndrome documented in this encounter Additional Health Concerns Assessment Noted Time PHQ-9 Depression Total Score: 0 08/31/19 24 2:53 PM EDT documented as of this encounter Care Teams Product Blending Supervisor Relationship Specialty Start Date End Date Joanne Chino NP [address] [place] [address] PCP - General Family Medicine 08/31/23 documented as of this encounter
--- OUTSIDE RECORDS SUMMARY | 2024-08-04 09:15 | XMS_ITS | Clinical Summary ---
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 Name Role Phone Joanne Chino MARY Primary Care Provider [phone] Allergies Active Allergy Reactions Criticality Noted Date [...] 1 each 07/18/19 23 Active sodium chloride ([place] Nasal [place]) 0.65 % nasal sprayIndications :Acute bacterial sinusitis [...] BEDTIME 30 tablet 3 06/27/19 25 Active gabapentin (Neurontin) 100 MG capsuleIndicatio ns:Chronic pain syndrome TAKE 2 CAPSULES BY MOUTH TWICE DAILY IN THE MORNING AND AT NOON 360 capsule 1 07/11/19 25 Active ferrous gluconate (Fergon) 324 (38 Fe) MG tabletIndication s:Iron deficiency anemia, unspecified iron deficiency anemia type Take 1 tablet (324 mg) by mouth every other day. 15 tablet 11 07/23/19 25 2025 Active oxyCODONE (Roxicodone) 15 MG immediate release tabletIndication s:Chronic pain syndrome Take 0.5 tablets (7.5 mg) by mouth every 6 (six) hours if needed (severe pain) for up to 28 days. Do not start before July 25, 2024. 56 tablet 07/26/19 25 2024 Active gabapentin (Neurontin) 100 MG capsuleIndicatio ns:Chronic pain syndrome Take 2 capsules (200 mg) by mouth 2 times daily. 360 capsule 1 11/06/19 24 2024 Discontinued Ferate 240 (27 Fe) [...] 27, 2024. 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 Do not take Medrol while on this medication. May resume Medrol dosing after prednisone course.. 21 tablet 07/15/19 25 2024 Active Problems Problem Noted Date Diagnosed Date Chronic fatigue 08/01/2024 Hyperglycemia 07/24/2024 Iron deficiency anemia 07/24/2024 Assessment & Plan (07/24/2024 2:31 PM EDT): On iron, completed colonosopy, currently on meds from GI, once course is completed, change to every other day iron as prescribed today, Call int Non-restorable tooth 03/28/2024 Dietary counseling 03/21/2024 Assessment [...] controlled Rheumatoid arthritis 10/28/2015 Assessment & Plan (07/24/2024 2:16 PM EDT): Call into [facility] team regarding pain management Assessment & Plan (07/14/2024 9:50 AM EDT): [...] Encounters Date Type Department Care Team Description 08/01/2024 Orders Only [facility] [address] [place] [address] Joanne Chino NP Chronic fatigue (Primary Dx) 07/28/2024 Telephone [facility] [address] [place] [address] Joanne Chino NP call back needed 07/24/2024 Refill [facility] [address] [place] [address] Joanne Chino NP Chronic pain syndrome 07/24/2024 Refill [facility] [address] [place] [address] Joanne Chino NP Chronic pain syndrome 07/23/2024 Refill [facility] [address] [place] [address] Joanne Chino NP Chronic pain syndrome 07/22/2024 3:45 PM EDT Office Visit [facility] [address] [place] [address] Joanne Chino NP Hyperglycemia (Primary Dx); Iron deficiency anemia, unspecified iron deficiency anemia type; 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 ([facility]) 07/22/2024 Travel 07/21/2024 Telephone [facility] [address] [place] [phone] Joslyn Talbert MA Chart Prep 07/21/2024 Telephone [facility] [address] [place] [phone] Joanne Chino NP Durable Medical Equipment 07/15/[address] [address] Joanne Chino NP 07/15/2024 Telephone [facility] [address] [place] [phone] Yolis Hansen NP 07/14/2024 9:15 AM EDT Office Visit [address] [address] Yolis Hansen NP 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 ([facility]) (Primary Dx) 07/14/2024 Travel 07/11/[address] [address] Joanne Chino NP Medication Question 07/08/2024 Refill [facility] [address] [place] [phone] Joanne Chino NP Chronic pain syndrome 07/01/[address] [address] Joanne Chino NP Durable Medical Equipment (scooter) 06/26/2024 Refill [facility] [address] [place] [address] Joanne Chino NP Chronic pain syndrome 06/25/2024 Refill [facility] [address] [place] [address] Joanne Chino NP Chronic pain syndrome 06/25/2024 Refill [facility] [address] [place] [phone] Joanne Chino NP Chronic pain syndrome; Rheumatoid arthritis involving multiple sites with positive rheumatoid factor ([facility]) 06/20/2024 Refill [facility] [address] [place] [phone] Joanne Chino NP Chronic pain syndrome 06/19/2024 Telephone [facility] [address] [place] [address] Puja Clark OD 06/16/2024 Patient Outreach [facility] [address] [place] [address] Joanne Chino, MARY Pre-visit Planning (SDOH unable to reach LVM) 06/13/2024 Telephone [facility] [address] [place] [address] Joslyn Talbert MA Chart Prep 05/29/2024 Refill [facility] [address] [place] [address] Joanne Chino NP Benign hypertension 05/26/2024 Refill [facility] [address] [place] [address] Joanne Chino NP Chronic pain syndrome 05/26/2024 Refill [facility] [address] [place] [address] Joanne Chino NP Chronic pain syndrome 05/22/2024 Telephone [facility] [address] [place] [address] Joanne Chino NP 05/22/2024 Refill [facility] [address] [place] [address] Joanne Chino NP 05/20/2024 Orders Only [facility] [address] [place] [address] Joanne Chino NP Chronic pain syndrome (Primary Dx) 05/08/2024 Telephone [facility] [address] [place] [address] Joanne Chino NP Durable Medical Equipment from Last 3 Months Immunizations Immunization Administration Dates Next Due Influenza Injectable Quadriv [...] 3:00 PM EDT Office Visit [facility] [address] [place] [address] Lawrence Herrera 09/02/2024 1:30 PM EDT Office Visit [facility] [address] [place] [phone] Joanne Chino NP [address] [place] [address] 09/08/2024 1:00 PM EDT Clinical Support [address] [address] Franca Murillo, RN Health Maintenance Due Date Last Done Comments [...] history exists Depression Screening 08/30/2024 08/31/2023, 08/31/19 24 Lipid Panel 08/30/2024 08/31/2023, 04/0 08/2022, 11/04/2021, [...] patient's age to complete this topic Meningococcal B Vaccine Aged Out No l onger eligible based on patient's age to complete [...] coma, without long-term current use of insulin ([facility]) HM MAMMOGRAPHY Routine 08/29/2021 [facility]ZZ HISTORICAL HPV MRNA E6/E7 Routine 06/07/2016 10:25 AM EDT from Last 3 Months or Most Recently Relevant to Health Maintenance Results * POCT Glucose (07/22/2024 4:39 PM EDT) [facility] Glucose Blood, POC 111 60 - 200 mg/dL QC Media Lot # [id number] Lot# Expiration Date 101,425 Blood Capillary blood specimen / Unknown 07/22/2024 4:39 PM EDT us Joanne Chino GROUP SALES COORDINATOR POINT OF CARE TEST ENTER/EDIT OR DERABLES Final Result * XR Knee 1-2 Views Left (06/06/2024 2:20 PM EDT) Anatomical Region Laterality Modality Lower Extremities, Knee Left Radiogra phic Imaging 06/06/2024 2:20 PM EDT Narrative 06/06/2024 2:34 PM EDT ? [facility] ?[address] ?[place] [address] ?XRay Report ? Signed ? Patient: Tito NavarroGita ?MR#: ?? [id number] ? : 1980 ?Acct:[id number] ? Age/Sex: 43 / F ?ADM Date: 06/06/24 ? Loc: HO.ED ? Attending Dr: ? Ordering Physician: Lauren Yanez ?? Date of Service: 06/06/24 ?? Procedure(s): XR knee LT 2V ?? Accession Number(s): [id number] ? cc: Joanne Chino GROUP SALES COORDINATOR; Lauren Yanez ? EXAMINATION: ??XR KNEE 1-2 [...] signed by Manny Eid MD in OV> ?06/06/24 1431 ? DD/DT: 06/06/ 1420 ? TD/TT: 06/06/24 1428 ? Digital Communications Manager: ? Procedure Note Donotuseinterpreter, Image - 06/06/[address] [address] XRay Report Signed Patient: Gita BennettMR#: [id number] : 1980Acct:[id number] Age/Sex: 43 / FADM Date: 06/06/24 Loc: HO.ED Attending Dr: Ordering Physician: Lauren Yanez Date of Service: 06/06/24 Procedure(s): XR knee LT 2V Accession Number(s): [id number] cc: Joanne Chino GROUP SALES COORDINATOR; Lauren Yanez EXAMINATION: XR KNEE 1-2 VIEWS [...] 06/06/24 1431 DD/ 1420 TD/TT: 06/06/24 1428 Digital Communications Manager: [facility] External Provider IMG XR PROCEDURES Final Result * (ABNORMAL) POCT HGB A1C (03/21/2024 1:59 PM EST) Hemoglobin A1C 6.0 4.0 - 6.0 % QC Media Lot # [id number] Lot# Expiration Date Blood 03/21/2024 1:59 PM EST Joanne Chino NP POINT OF CARE TEST ENTER/EDIT OR DERABLES Final Result * Lipid Panel, Standard (08/31/2023 3:24 PM EDT) Triglycerides 75 <150 mg/dL [facility] Comment:Desirable Triglyceri de: less than 150 mg/dLBorderline High Triglyceride 150-199 mg/dLHigh Triglyceride: 200-499 mg/dLVery High Triglyceride: greater than or equal to 5OO mg/dL Cholesterol 172 <200 mg/dL [facility] Comment:Desirable Cholestero l: less than 200 mg/dLBorderline High Cholesterol: 200-239 mg/dLHigh Cholesterol: greater than 239 mg/dL LDL Cholesterol Calculated 88 <100 mg/dL [facility] Comment:Desirable LDL: less than 100 mg/dLNear Optimal/Above Optimal LDL: 110- 129 mg/dLBorderline High LDL: 130-159 mg/dLHigh LDL: 160-189 mg/dLVery High LDL: greater than or equal to 190 mg/dL HDL Cholesterol 69 >40 mg/dL [facility] Comment:Desirable HDL: great er than 40 mg/dL Note: This HDL assay may give artificially low results in patients with liver disease. Blood Venous blood specimen / Unknown 08/31/2023 3:24 PM EDT 08/31/2023 4:11 PM EDT us Ryanne Dao SENIOR MARKETING DATA ANALYST LAB BLOOD ORDERABLES Final Resu lt [facility] [address] [place], [place] [phone] * Albumin, Random Urine W/O Creatinine (06/23/2022 8:17 AM EDT) Albumin, Urine 1.2 See Note: mg/dL [facility] [place] [facility] Comment: Reference Range: Reference Range Not established KARI [facility] Comment: The ADA defines abnormalities in [...] 06/23/2022 8:20 PM EDT SPLIT 06/22/2022 FROM [id number] Ryanne Dao SENIOR MARKETING DATA ANALYST LAB URINE ORDERABLES Final Resu lt [facility] [address], [place] [address] [facility] [address] [place] [address] * Mammography (08/29/2021) Mammogram Performed Comment:BI RADS 1 recommende d routine annual screening Anatomical Region Laterality Modality Other Historical Provider MD HEALTH MAINTENANCE Edited Result - Final * HPV mRNA E6/E7 (06/07/2016 10:25 AM EDT) HPV mRNA E6/E7 Not Detected NOT DETECTED [facility] [employer] [facility] Comment: This test was performed using the APTIMA(R) HPV Assay ([employer] This assay detects E6/E7 viral messenger RNA (mRNA) from 14 high-risk HPV types (16,18,31,33,35,39,45,51, 52,56,58,59,66,68). For additional information please refer to: http://education.IKOR [employer]ERING/faq/SRA628e0 (This link is being provided for informational/ educational purposes only.) Test Performed by Stephanie Hernandez, [facility], [address] [place] [address] Eliu Castillo M.D., Ph.D., Director of Laboratories , [place] [id number] Please note: ??Effective 11/29/2015, HPV testing will be performed using [employer]'s APTIMA test which targets mRNA. Detecting mRNA instead of DNA, as in older methods, offers significant improvements in specificity. 06/07/2016 10:2 5 AM EDT us Marley Mattie NELSON HISTORICAL/NON ORDERABLE LABS Final Result [facility] [address] from Last 3 Months or Most Recently Relevant to Health Maintenance Insurance [facility] < [address] [facility] [place] [phone] Care Teams Portrait Studio Photographer Relationship Specialty Start Date End Date Joanne Chino NP [address] [place] [phone] PCP - General Family Medicine 08/31/23
--- OUTSIDE RECORDS SUMMARY | 2024-08-04 09:16 | XMS_ITS | Clinical Summary ---
Author Organization [facility] Address [address] [place] [address] Care Team Providers Care Operator Automated Process Name Role Phone Joanne Chion Primary Care Provider [phone] Allergies Active Allergy Reactions Criticality Noted Date [...] mouth once a day. 30 tablet 2 9:29 AM EDT 07/22/19 25 025 Active Cimzia 400 mg/2 mL (200 mg/mL x 2) subcutaneous injection 05/29/19 25 025 Discontinued Active Problems No known active problems Encounters Date Type Department Care Team Description 07/28/2024 Orders Only [facility] Rheumatology [facility] [address] [place] [address] Supervising Floorperson: Teresa Charles PA 07/25/2024 [facility] Pharmacotherapy [facility] [address] [place] [phone] Gisella Singer OJ 07/24/2024 Telephone [facility] [address] [place] [phone] Supervising Floorperson: Teresa Charles PA 07/23/2024 Telephone [facility] [address] [place] [address] Supervising Floorperson: Sarai Whitlock Prior Authorization (upadacitinib ER (RINVOQ) 15 mg tablet) 07/18/2024 2:00 PM EDT Follow-Up [facility] Rheumatology [address] [address] Supervising Floorperson: Teresa Charles PA 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) 07/15/2024 Telephone [facility] [address] [place] [phone] Supervising Floorperson: Chela Gabriel Telephone Intake, Staff PAC Urgent Appt Request 06/23/2024 2:23 PM EDT - 06/23/2024 11:59 PM EDT Hospital Encounter [facility] XRay [address] [place] [address] Arthralgia, unspecified joint Discharge Disposition: Home or Self Care () 06/23/2024 1:00 PM EDT Office Visit [facility]ology [facility] [address] [place] [address] Supervising Floorperson: Teresa Charles PA Arthralgia, unspecified joint (Primary [...] Info) Description 10/10/2024 2:00 PM EDT Follow-Up [facility] Rhe[facility]ology [facility] [address] [place], [place] [phone] Supervising Floorperson: Teresa Charles PA [address] [place] [address] Health Maintenance Due Date Last Done Comments Cervical Cancer Screening 1981 HIV Screening 1981 HPV and Pap Smear 1981 Pap Smear 1981 Varicella Vaccines (1 of 2 - 13+ 2-dose series) 1994 Hepatitis B Vaccines (1 of 3 - 19+ 3-dose series) 2000 DTaP,Tdap,and Td Vaccines (1 - Tdap) 07/01/2003 Mammogram 2021 COVID-19 Vaccine ( season) 2023 08/05/2020, 07/08/2020 Alcohol/Substance Use Screening [...] Screening Completed 07/18/2024 Procedures * Due to [place] state law, this organization might not be sharing negative HIV tests. Procedure Name Priority Date/Time Associated Diagnosis Comments HEPATITIS PANEL, ACUTE Routine 2:38 PM EDT Rheumatoid arthritis involving multiple sites with positive rheumatoid factor (HCC) QUANTIFERON-TB GOLD PLUS, 1 [id number] Routine 07/18/2024 2:38 PM EDT Rheumatoid arthritis [...] Last 3 Months Results * Due to [place] state law, this organization might not be sharing negative HIV tests. * QuantiFERON-TB Gold Plus, 1 Tube (07/18/2024 2:38 PM EDT) QuantiFERON-TB Gold Plus NEGATIVE NEGATIVE 07/21/2024 12:28 PM EDT [facility] Comment: Negative test result. M. tuberculosis complex infection unlikely. NIL 0.02 IU/mL 07/21/2024 12:28 PM EDT [facility] Mitogen-NIL >10.00 IU/mL 07/21/2024 12:28 PM EDT [facility] TB1-NIL 0.00 IU/mL 07/21/2024 12:28 PM EDT [facility] TB2-NIL 0.01 IU/mL 07/21/2024 12:28 PM EDT [facility] Comment: The Nil tube value reflects [...] T-lymphocytes. For additional information, please refer to https://education.Keepy/faq/IKO273 (This link is being provided for informational/ educational purposes only.) Blood Structure of peripheral vein / Unknown Venipuncture / Unknown 07/18/2024 2:38 PM EDT 07/18/2024 3:13 PM EDT Narrative [facility] - 07/21/2024 12:28 PM EDT [facility] Received Date: Teresa MCKEON LAB BLOOD ORDERABLES Final Result [facility] [address] [facility] 3rd Floor, [place] [address], [place] [phone] [facility] [address] [facility] 3rd Floor, [place] [address], [place] [phone] * Hepatitis Panel, Acute (07/18/2024 2:38 PM EDT) Pathologist [facility] Hepatitis A IgM NON-REACT ALTAF NON-REACT ALTAF 07/19/2024 5:31 AM EDT [facility] Hepatitis B Surface Antigen NON-REACT ALTAF NON-REACT ALTAF 07/19/2024 5:31 AM EDT [facility] Hepatitis B Core Antibody NON-REACT ALTAF NON-REACT ALTAF 07/19/2024 5:31 AM EDT [facility] Hepatitis C Antibody NON-REACT ALTAF NON-REACT ALTAF 07/19/2024 5:31 AM EDT [facility] Comment: HCV antibody was non-reactive. There is no laboratory evidence of HCV infection. In most cases, no further action is required. However, if recent HCV exposure is suspected, a test for HCV RNA (test code 35764) is suggested. For additional information please refer to http://YuMe.Keepy/faq/ZBZ50t2 (This link is being provided for informational/ educational purposes only.) For additional information, please refer to http://YuMe.Keepy/faq/OSK321 (This link is being provided for informational/ educational purposes only.) Blood Structure of peripheral vein / Unknown Venipuncture / Unknown 07/18/2024 2:38 PM EDT 07/18/2024 3:13 PM EDT Narrative [facility] - 07/19/2024 5:31 AM EDT [facility] Received Date: Teresa MCKEON LAB BLOOD ORDERABLES Final Result [facility] [address] [facility] 3rd [address], [place] [address], [place] [phone] [facility] [address], [place] [address], * (ABNORMAL) CBC Auto Differential (06/23/2024 3:18 PM EDT) Pathologist [facility] WBC 6.0 3.8 - 10.8 10*3/uL 06/23/2024 3:40 PM EDT [facility] RBC 3.87 3.80 - 5.10 10*6/uL 06/23/2024 3:40 PM EDT [facility] Hemoglobin 10.5(L) 11.7 - 15.5 g/dL 06/23/2024 3:40 PM EDT [facility] Hematocrit 33.6(L) 35.0 - 45.0 % 06/23/2024 3:40 PM EDT [facility] MCV 86.8 80.0 - 100.0 fL 06/23/2024 3:40 PM EDT [facility] MCH 27.1 27.0 - 33.0 pg 06/23/2024 3:40 PM EDT [facility] MCHC 31.3(L) 32.0 - 36.0 g/dL 06/23/2024 3:40 PM EDT [facility] RDW 15.3(H) 11.0 - 15.0 % 06/23/2024 3:40 PM EDT [facility] Platelets 349 140 - 400 10*3/uL 06/23/2024 3:40 PM EDT [facility] MPV 8.8 7.5 - 12.5 fL 06/23/2024 3:40 PM EDT [facility] Neutrophil % 50.9 % 06/23/2024 3:40 PM EDT [facility] Immature Grans % 0.2 0.0 - 0.9 % 06/23/2024 3:40 PM EDT [facility] Lymphocyte % 31.5 % 06/23/2024 3:40 PM EDT [facility] Monocyte % 14.6 % 06/23/2024 3:40 PM EDT [facility] Eosinophil % 2.3 % 06/23/2024 3:40 PM EDT [facility] Basophil % 0.5 % 06/23/2024 3:40 PM EDT [facility] Neutrophil # 3.07 1.50 - 7.80 10*3/uL 06/23/2024 3:40 PM EDT [facility] Immature Grans # <0.03 <=0.03 10*3/uL 06/23/2024 3:40 PM EDT [facility] Lymphocyte # 1.90 0.85 - 3.90 10*3/uL 06/23/2024 3:40 PM EDT [facility] Monocyte # 0.90 0.20 - 0.95 10*3/uL 06/23/2024 3:40 PM EDT [facility] Eosinophil # 0.10 0.02 - 0.50 10*3/uL 06/23/2024 3:40 PM EDT [facility] Basophil # <0.03 0.00 - 0.20 10*3/uL 06/23/2024 3:40 PM EDT [facility] nRBC % 0.0 /100 WBCs 06/23/2024 3:40 PM EDT [facility] nRBC # <0.01 <0.01 10*3/uL 06/23/2024 3:40 PM EDT [facility] Blood Structure of peripheral vein / Unknown Venipuncture / Unknown 06/23/2024 3:18 PM EDT 06/23/2024 3:31 PM EDT us Teresa MCKEON LAB BLOOD ORDERABLES Final Result [facility] [address] [place] [address], * (ABNORMAL) Cyclic Citrullinated Peptide (CCP) Antibody, IgG (06/23/2024 3:18 PM EDT) Cyclic Citrullinated Peptide (CCP) Ab (IgG) 50(H) UNITS 06/25/2024 9:40 AM EDT [facility] Comment: Reference Range Negative: ?<20 Weak Positive: ? 20-39 Moderate Positive: ?? 40-59 Strong Positive: ? >59 Blood Structure of peripheral vein / Unknown Venipuncture / Unknown 06/23/2024 3:18 PM EDT 06/23/2024 3:31 PM EDT Narrative [facility] - 06/25/2024 9:40 AM EDT [facility] Received Date: Teresa MCKEON LAB BLOOD ORDERABLES Final Result [facility] [address] [facility] [address], [place] [address], [employer] [facility] [address] [facility] 3[address], [place] [address], * BRYNN Screen, IFA, w/Reflex to Titer & Pattern (06/23/2024 3:18 PM EDT) Pathologist [facility] BRYNN Screen, IFA NEGATIVE NEGATIVE 1:23 PM EDT [facility] Comment: BRYNN IFA is a first line [...] AC-0: Negative International Consensus on BRYNN Patterns (https://doi.org/10.1515/ekbk-9288-3891) For additional information, please refer to http://education.Marine Current Turbines/faq/FHW253 (This link is being provided for informational/ educational purposes only.) ?? Blood Structure of peripheral vein / Unknown Venipuncture / Unknown 06/23/2024 3:18 PM EDT 06/23/2024 3:31 PM EDT [facility] - 06/26/2024 1:23 PM EDT [facility] Received Date: Teresa MCKEON LAB BLOOD ORDERABLES Final Result [facility] [address] [facility] [address]rd [address], [place] [address], [place] [phone] [facility] [address] [facility] [address]rd [address], [place] [address], [place] [phone] * (ABNORMAL) Sedimentation rate, automated (06/23/2024 3:18 PM EDT) Pathologist [facility] Sed Rate 88(H) <20 mm/Hr mm/Hr 06/23/2024 3:43 PM EDT [facility] Blood Structure of peripheral vein / Unknown Venipuncture / Unknown 06/23/2024 3:18 PM EDT 06/23/2024 3:31 PM EDT Teresa MCKEON LAB BLOOD ORDERABLES Final Result Performing Organization Address City/[facility] Co de Phone Number [facility] [address] [place] [address], * (ABNORMAL) Rheumatoid factor (06/23/2024 3:18 PM EDT) Rheumatoid Factor 207(H) <14 IU/mL 06/24/2024 11:47 AM EDT [facility] Blood Structure of peripheral vein / Unknown Venipuncture / Unknown 06/23/2024 3:18 PM EDT 06/23/2024 3:31 PM EDT Narrative [facility] - 06/24/2024 11:47 AM EDT [facility] Received Date: Teresa MCKEON LAB BLOOD ORDERABLES Final Result [employer] [facility] [address] [facility] [address]rd [address], [place] [address], [facility] [address] [facility] [address], [place] [address], * (ABNORMAL) C-reactive protein (06/23/2024 3:18 PM EDT) Pathologist [facility] C Reactive Protein 65.9(H) <=9.9 mg/L 06/23/2024 4:09 PM EDT [facility] Blood Structure of peripheral vein / Unknown Venipuncture / Unknown 06/23/2024 3:18 PM EDT 06/23/2024 3:31 PM EDT Teresa MCKEON LAB BLOOD ORDERABLES Final Result Performing Organization Address City/[facility]/ZIP Co de Phone Number [facility] [address] [place] [address], [place] * BRYNN Specific Antibody w/Reflex to [place] (06/23/2024 3:18 PM EDT) Pathologist [facility] BRYNN Screen, Immunoassay NEGATIVE NEGATIVE 06/25/2024 5:40 AM EDT [facility] Comment: A negative BRYNN Multiplex indicates the absence of detectable antibodies to component analytes consisting of double stranded DNA (dsDNA), chromatin, ribonucleoprotein (INSIDE B2B SALES), Pandey/INSIDE B2B SALES (Sm/INSIDE B2B SALES), Pandey (Sm), SS-A, SS-B, Rubi-1, centromere B, Scl-70 and ribosomal P. A negative result should be interpreted in the context of the clinical and laboratory findings and does not rule out autoimmune disease characterized by other autoantibody specificities such as rheumatoid arthritis, autoimmune hepatitis, primary biliary cirrhosis, autoimmune thyroiditis, [place]'s disease, pernicious anemia, autoimmune neuropathies, vasculitis, celiac disease, and bullous disease. For additional information, please refer to http://education.Marine Current Turbines/faq/MUG048 (This link is being provided for informational/ educational purposes only.) ?? Blood Structure of peripheral vein / Unknown Venipuncture / Unknown 06/23/2024 3:18 PM EDT 06/23/2024 3:31 PM EDT Narrative [facility] - 06/25/2024 5:40 AM EDT [facility] Received Date:[id number] Teresa MCKEON LAB BLOOD ORDERABLES Final Result [facility] [address] [facility] [address], [place] [address], [place] [phone] [facility] [address] [facility] [address], [place] [address], * (ABNORMAL) Comprehensive metabolic panel (06/23/2024 3:18 PM EDT) NA 137 135 - 145 mmol/L 06/23/2024 4:09 PM EDT [facility] K 3.1(L) 3.5 - 5.3 mmol/L 06/23/2024 4:09 PM EDT [facility] Cl 97(L) 98 - 107 mmol/L 06/23/2024 4:09 PM EDT [facility] CO2 27 22 - 32 mmol/L 06/23/2024 4:09 PM EDT [facility] Anion Gap 13 5 - 15 06/23/2024 4:09 PM EDT [facility] Glucose 126(H) 65 - 99 mg/dL 06/23/2024 4:09 PM EDT [facility] Creatinine 0.61 0.50 - 1.20 mg/dL 06/23/2024 4:09 PM EDT [facility] Calcium 9.0 8.6 - 10.5 mg/dL 06/23/2024 4:09 PM EDT [facility] Total Protein 7.7 6.0 - 8.0 g/dL 06/23/2024 4:09 PM [facility] Albumin 3.5 3.5 - 5.2 g/dL 06/23/2024 4:09 PM [facility] Bilirubin, Total 0.4 0.2 - 1.2 mg/dL 06/23/2024 4:09 PM [facility] Alkaline Phosphatase 75 35 - 129 U/L 06/23/2024 4:09 PM [facility] AST 45(H) 10 - 40 U/L 06/23/2024 4:09 PM [facility] ALT 38 10 - 40 U/L 06/23/2024 4:09 PM [facility] BUN 3(L) 7 - 23 mg/dL 06/23/2024 4:09 PM [facility] eGFR >90 >=60 mL/min/1. 73m2 06/23/2024 4:09 PM [facility] Comment:The estimated glomer ular filtration [...] 2.1 - 4.2 g/dL 06/23/2024 4:09 PM [facility] A/G Ratio 0.8(L) 1.5 - 3.0 06/23/2024 4:09 PM [facility] Blood Structure of peripheral vein / Unknown Venipuncture / Unknown 06/23/2024 3:18 PM EDT 06/23/2024 3:31 PM EDT us Teresa MCKEON LAB BLOOD ORDERABLES Final Result [facility] [address] [place] [address], [place] * X-Ray Foot Right 3+ Views [...] obtain the completed interpretation. ? Workstation ID: [id number] Narrative 06/23/2024 3:38 PM EDT COMPARISON: ??There [...] of the facet joints. Resulting Agency Comment [id number] Procedure Note Manuela Snow MD - 06/23/2024 [...] possible to obtain thecompleted interpretation. Workstation ID: [id number] Teresa MCKEON IMG XR PROCEDURES Final Re [...] obtain the completed interpretation. ? Workstation ID: [id number] Narrative 06/23/2024 3:38 PM EDT COMPARISON: ??There [...] of the facet joints. Resulting Agency Comment [id number] Procedure Note Manuela Snow MD - 06/23/2024 [...] possible to obtain thecompleted interpretation. Workstation ID: [id number] Teresa MCKEON IMG XR PROCEDURES Final Re [...] obtain the completed interpretation. ? Workstation ID: [id number] Narrative 06/23/2024 3:38 PM EDT COMPARISON: ??There [...] of the facet joints. Resulting Agency Comment [id number] Procedure Note Manuela Snow MD - 06/23/2024 [...] possible to obtain thecompleted interpretation. Workstation ID: [id number] us Teresa MCKEON IMG XR PROCEDURES Final [...] obtain the completed interpretation. ? Workstation ID: [id number] Narrative 06/23/2024 3:38 PM EDT COMPARISON: ??There [...] of the facet joints. Resulting Agency Comment [id number] Procedure Note Manuela Snow MD - 06/23/2024 [...] possible to obtain thecompleted interpretation. Workstation ID: [id number] us Teresa MCKEON IMG XR PROCEDURES Final [...] obtain the completed interpretation. ? Workstation ID: [id number] Narrative 06/23/2024 3:38 PM EDT COMPARISON: ??There [...] of the facet joints. Resulting Agency Comment [id number] Procedure Note Manuela Snow MD - 06/23/2024 [...] possible to obtain thecompleted interpretation. Workstation ID: [id number] us Teresa MCKEON IMG XR PROCEDURES Final [...] obtain the completed interpretation. ? Workstation ID: [id number] Narrative 06/23/2024 3:38 PM EDT COMPARISON: ??There [...] of the facet joints. Resulting Agency Comment [id number] Procedure Note Manuela Snow MD - 06/23/2024 [...] possible to obtain thecompleted interpretation. Workstation ID: [id number] us Teresa MCKEON IMG XR PROCEDURES Final [...] obtain the completed interpretation. ? Workstation ID: [id number] Narrative 06/23/2024 3:38 PM EDT COMPARISON: ??There [...] of the facet joints. Resulting Agency Comment [id number] Procedure Note Manuela Snow MD - 06/23/2024 [...] possible to obtain thecompleted interpretation. Workstation ID: [id number] us Teresa MCKEON IMG XR PROCEDURES Final [...] obtain the completed interpretation. ? Workstation ID: [id number] Narrative 06/23/2024 3:38 PM EDT COMPARISON: ??There [...] of the facet joints. Resulting Agency Comment [id number] Procedure Note Manuela Snow MD - 06/23/2024 [...] possible to obtain thecompleted interpretation. Workstation ID: [id number] us Teresa MCKEON IMG XR PROCEDURES Final [...] obtain the completed interpretation. ? Workstation ID: [id number] Narrative 06/23/2024 3:38 PM EDT COMPARISON: ??There [...] of the facet joints. Resulting Agency Comment [id number] Procedure Note Manuela Snow MD - 06/23/2024 [...] possible to obtain thecompleted interpretation. Workstation ID: [id number] us Teresa MCKEON IMG XR PROCEDURES Final [...] obtain the completed interpretation. ? Workstation ID: [id number] Narrative 06/23/2024 3:38 PM EDT COMPARISON: ??There [...] of the facet joints. Resulting Agency Comment [id number] Procedure Note Manuela Snow MD - 06/23/2024 [...] possible to obtain thecompleted interpretation. Workstation ID: [id number] us Teresa MCKEON IMG XR PROCEDURES Final Re sult * XR Knee, Outside Result (06/06/2024) Anatomical Region Laterality Modality Other 06/06/2024 us [facility] AMB EXTERNAL RESULT PROCEDURE S Final Result * LAB - SCANNED (06/02/2024) us Onbase [facility] LAB HISTORICAL RESULTS Final Result from Last 3 Months Insurance [facility] Care Teams Operator Automated Process Relationship Specialty Start Date End Date SandrineulyssesJoanne [address] [place] [address] PCP - General Family Medicine 04/03/24
--- OUTSIDE RECORDS SUMMARY | 2024-08-04 09:16 | XMS_ITS | Encounter Summary ---
Author Organization [employer] Address [address] [facility] 7[address] [place] [address] Care Team Providers Care Clinic Scheduler Name Role Phone Ryanne Dao Primary Care Provider [phone] Joanne Chino NP Primary Care Provider [phone] Encounter Details Date Type Department Care Team (Late st Contact Info) Description 11/07/2022 Orders Only [facility] [address] [place], [place] [phone] Ryanne Dao FNP [address] [place] [address] Other iron deficiency anemia (Primary Dx) Social [...] Description 08/15/2024 3:00 PM EDT Office Visit [facility] [address] [place] [address] Lawrence Herrera 09/02/2024 1:30 PM EDT Office Visit [facility] [address] [place] [address] Joanne Chino NP [address] [place] [address] 09/08/2024 1:00 PM EDT Clinical Support [facility] [address] [place] [address] Franca Murillo RN documented as of this encounter Visit Diagnoses Diagnosis Other iron deficiency anemia- Primary documented in this encounter Additional Health Concerns Assessment Noted Time PHQ-9 Depression Total Score: 24 023 11:33 AM EST documented as of this encounter Care Teams Clinic Scheduler Relationship Specialty Start Date End Date Ryanne Dao FNP [address] [place] [phone] PCP - General Family Medicine 02/02/22 08/30/23 Joanne Chino NP [address] [place] [address] PCP - General Family Medicine 08/31/23 documented as of this encounter
--- OUTSIDE RECORDS SUMMARY | 2024-08-04 09:16 | XMS_ITS | Encounter Summary ---
Author Organization [employer] Address [address] [facility] [address]t [place] [address] Care Team Providers Care Insulation Applicator Name Role Phone Ryanne Dao Primary Care Provider [phone] Joanne Chino NP Primary Care Provider [phone] Reason for Visit * Reason Comments Med Refill Encounter Details Date Type Department Care Team (Late st Contact Info) Description 09/23/2022 Refill [facility] [address] [place] [address] Ryanne Dao FNP [address] [place] [address] Gastroesophageal reflux disease with esophagitis without hemorrhage [...] Description 08/15/2024 3:00 PM EDT Office Visit [facility] D[facility] [address] [facility] [place] [address] Lawrence Herrera 09/02/2024 1:30 PM EDT Office Visit [facility] [address] [place] [address] Joanne Chino NP [address] [place] [address] 09/08/2024 1:00 PM EDT Clinical Support [facility] [address] [place] [address] Franca Murillo RN documented as of this encounter Visit Diagnoses Diagnosis Gastroesophageal reflux disease with esophagitis without hemorrhage documented in this encounter Additional Health Concerns Assessment Noted Time PHQ-9 Depression Total Score: 24 023 11:33 AM EST documented as of this encounter Care Teams Insulation Applicator Relationship Specialty Start Date End Date Ryanne Dao FNP [address] [place] [address] PCP - General Family Medicine 02/02/22 08/30/23 Joanne Chino NP [address] [place] [address] PCP - General Family Medicine 08/31/23 documented as of this encounter
--- OUTSIDE RECORDS SUMMARY | 2024-08-04 09:16 | XMS_ITS | Encounter Summary ---
Author Organization [employer] Address [address] [facility] [address] [place] [address] Care Team Providers Care Deflector Operator Name Role Phone Ryanne DaoP Primary Care Provider [phone] Joanne Chnio NP Primary Care Provider [phone] Reason for Visit * Reason Onset Date Comments ER Follow-up 10/24/2022 Encounter Details Date Type Department Care Team (Late st Contact Info) Description 10/24/2022 Telephone [facility] [address] [place], [place] [phone] Ryanne Dao FNP [address] [place] [address] ER Follow-up Social History Tobacco Use Types [...] pt to triage, spoke to pt through pacific technology intern. pt seen ER at [facility] yesterday and diagnosed with kidney infection. pt [...] to report ED visit on 10/23/22 at [facility]. Seen for back pain and unable to [...] Description 08/15/2024 3:00 PM EDT Office Visit [facility] ADULT [facility] [address] [place] [address] Lawrence Herrera 09/02/2024 1:30 PM EDT Office Visit [address] [address] Joanne Chino NP [address] [place] [address] 09/08/2024 1:00 PM EDT Clinical Support [address] [address] Franca Murillo, ALBERTO documented as of this encounter Visit Diagnoses Not on filedocumented in this encounter Additional Health Concerns Assessment Noted Time PHQ-9 Depression Total Score: 24 023 11:33 AM EST documented as of this encounter Care Teams Deflector Operator Relationship Specialty Start Date End Date Ryanne Dao FNP [address] [place] [id number] PCP - General Family Medicine 02/02/22 08/30/23 Joanne Chino NP [address] [place] [phone] PCP - General Family Medicine 08/31/23 documented as of this encounter
--- OUTSIDE RECORDS SUMMARY | 2024-08-04 09:16 | XMS_ITS | Encounter Summary ---
Author Organization [facility] Address [address] [place] [address] Care Team Providers Care Coffee Machine Technician Name Role Phone Joanne Chino Primary Care Provider [phone] Encounter Details Date Type Department Care Team (Latest Contact Info) Description 04/03/2024 Transcribe Orders [facility] Physician Referral Services [address] [place] [address] Joanne Chino [facility] [address] [place] [phone] Rheumatoid arthritis of other site with positive [...] Info) Description 10/10/2024 2:00 PM EDT Follow-Up [facility] [address] [place] [address] Motor Overhauler: Teresa Charles, MIKE [address] [place] [address] documented as of this encounter Visit Diagnoses Diagnosis 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 (HCC)- Primary documented in this encounter Care Teams Coffee Machine Technician Relationship Specialty Start Date End Date Joanne Chino [address] [place] [phone] PCP - General Family Medicine 04/03/24 documented as of this encounter
--- OUTSIDE RECORDS SUMMARY | 2024-08-04 09:16 | XMS_ITS | Referral Summary ---
Author Organization [facility] Address [address] [place] [address] Care Team Providers Care Assembler Corncob Pipes Name Role Phone Joanne Chino Primary Care Provider Encounters Date Type Department Care Team Description 07/28/2024 Orders Only [facility] [address] [place] [address] Nurse Prn: Teresa Charles PA 07/25/2024 [facility] Clinical Specialty Pharmacy [facility] [address] [place] [phone] Gisella Singer RPh 07/24/2024 Telephone [facility] [address] [place] [address] Nurse Prn: Teresa Charles PA 07/23/2024 Telephone [facility] [address] [place] [address] [phone] Nurse Prn: Sarai Whitlock Prior Authorization (upadacitinib ER (RINVOQ) 15 mg tablet) 07/18/2024 2:00 PM EDT Follow-Up [facility] [address] [place] [address] [phone] Nurse Prn: Teresa Charles PA 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) 07/15/2024 Telephone [facility] [address] [place] [address] Nurse Prn: Chela Gabriel Telephone Intake, Staff PAC Urgent Appt Request 06/23/2024 2:23 PM EDT - 06/23/2024 11:59 PM EDT Hospital Encounter [facility] XRay [address] [place] [address] Arthralgia, unspecified joint Discharge Disposition: Home or Self Care () 06/23/2024 1:00 PM EDT Office Visit [facility] [address] [place] [address] Nurse Prn: Teresa Charles PA Arthralgia, unspecified joint (Primary [...] mouth once a day. 30 tablet 2 5 9:29 AM EDT 07/22/19 25 025 Active Cimzia 400 mg/2 mL (200 mg/mL x 2) subcutaneous injection 05/29/19 25 025 Discontinued Active Problems No known active problems Social [...] Info) Description 10/10/2024 2:00 PM EDT Follow-Up [facility] [address] [place] [address] Nurse Prn: Teresa Charles PA [address] [place] [address] Procedures * Due to [place] state law, this organization might not be sharing negative HIV tests. Procedure Name Priority Date/Time Associated Diagnosis Comments HEPATITIS PANEL, ACUTE Routine 2:38 PM EDT Rheumatoid arthritis involving multiple sites with positive rheumatoid factor (HCC) QUANTIFERON-TB GOLD PLUS, 1 [id number] Routine 07/18/2024 2:38 PM EDT Rheumatoid arthritis [...] Plus, 1 Tube (07/18/2024 2:38 PM EDT) [facility] QuantiFERON-TB Gold Plus NEGATIVE NEGATIVE 07/21/2024 12:28 PM EDT [facility] Comment: Negative test result. M. tuberculosis complex infection unlikely. NIL 0.02 IU/mL 07/21/2024 12:28 PM EDT [facility] Mitogen-NIL >10.00 IU/mL 07/21/2024 12:28 PM EDT [facility] TB1-NIL 0.00 IU/mL 07/21/2024 12:28 PM EDT [facility] TB2-NIL 0.01 IU/mL 07/21/2024 12:28 PM EDT [facility] Comment: The Nil tube value reflects [...] T-lymphocytes. For additional information, please refer to https://education.ACSIAN/faq/QZM343 (This link is being provided for informational/ educational purposes only.) Blood Structure of peripheral vein / Unknown Venipuncture / Unknown 07/18/2024 2:38 PM EDT 07/18/2024 3:13 PM EDT Narrative [facility]DA TORRES - 07/21/2024 12:28 PM EDT [facility] Received Date: Teresa MCKEON LAB BLOOD ORDERABLES Final Result [facility] [address] [facility] 3rd [address], [place] [address], [facility] [address] [facility] 3rd Floor, [place] [address], * Hepatitis Panel, Acute (07/18/2024 2:38 PM EDT) Hepatitis A IgM NON-REACT ALTAF NON-REACT ALTAF 07/19/2024 5:31 AM EDT [facility] Hepatitis B Surface Antigen NON-REACT ALTAF NON-REACT ALTAF 07/19/2024 5:31 AM EDT [facility] Hepatitis B Core Antibody NON-REACT ALTAF NON-REACT ALTAF 07/19/2024 5:31 AM EDT [facility] Hepatitis C Antibody NON-REACT ALTAF NON-REACT ALTAF 07/19/2024 5:31 AM EDT [facility] Comment: HCV antibody was non-reactive. There is no laboratory evidence of HCV infection. In most cases, no further action is required. However, if recent HCV exposure is suspected, a test for HCV RNA (test code 17308) is suggested. For additional information please refer to http://Preview Networks.ACSIAN/faq/SWZ38t3 (This link is being provided for informational/ educational purposes only.) For additional information, please refer to http://Preview Networks.ACSIAN/faq/ZQN073 (This link is being provided for informational/ educational purposes only.) Blood Structure of peripheral vein / Unknown Venipuncture / Unknown 07/18/2024 2:38 PM EDT 07/18/2024 3:13 PM EDT Narrative LINDA TORRES - 07/19/2024 5:31 AM EDT [facility] Received Date: Teresa MCKEON LAB BLOOD ORDERABLES Final Result [facility] [address] [facility] 3rd [address], [place] [address], [place] [phone] [facility] [address] [facility] 3rd Floor, [place] [address], [place] [phone] * (ABNORMAL) CBC Auto Differential (06/23/2024 3:18 PM EDT) WBC 6.0 3.8 - 10.8 10*3/uL 06/23/2024 3:40 PM EDT [facility] RBC 3.87 3.80 - 5.10 10*6/uL 06/23/2024 3:40 PM EDT [facility] Hemoglobin 10.5(L) 11.7 - 15.5 g/dL 06/23/2024 3:40 PM EDT [facility] Hematocrit 33.6(L) 35.0 - 45.0 % 06/23/2024 3:40 PM EDT [facility] MCV 86.8 80.0 - 100.0 fL 06/23/2024 3:40 PM EDT [facility] MCH 27.1 27.0 - 33.0 pg 06/23/2024 3:40 PM EDT [facility] MCHC 31.3(L) 32.0 - 36.0 g/dL 06/23/2024 3:40 PM EDT [facility] RDW 15.3(H) 11.0 - 15.0 % 06/23/2024 3:40 PM EDT [facility] Platelets 349 140 - 400 10*3/uL 06/23/2024 3:40 PM EDT [facility] MPV 8.8 7.5 - 12.5 fL 06/23/2024 3:40 PM EDT [facility] Neutrophil % 50.9 % 06/23/2024 3:40 PM EDT [facility] Immature Grans % 0.2 0.0 - 0.9 % 06/23/2024 3:40 PM EDT [facility] Lymphocyte % 31.5 % 06/23/2024 3:40 PM EDT [facility] Monocyte % 14.6 % 06/23/2024 3:40 PM EDT [facility] Eosinophil % 2.3 % 06/23/2024 3:40 PM EDT [facility] Basophil % 0.5 % 06/23/2024 3:40 PM EDT [facility] Neutrophil # 3.07 1.50 - 7.80 10*3/uL 06/23/2024 3:40 PM EDT [facility] Immature Grans # <0.03 <=0.03 10*3/uL 06/23/2024 3:40 PM EDT [facility] Lymphocyte # 1.90 0.85 - 3.90 10*3/uL 06/23/2024 3:40 PM EDT [facility] Monocyte # 0.90 0.20 - 0.95 10*3/uL 06/23/2024 3:40 PM EDT [facility] Eosinophil # 0.10 0.02 - 0.50 10*3/uL 06/23/2024 3:40 PM EDT [facility] Basophil # <0.03 0.00 - 0.20 10*3/uL 06/23/2024 3:40 PM EDT [facility] nRBC % 0.0 /100 WBCs 06/23/2024 3:40 PM EDT [facility] nRBC # <0.01 <0.01 10*3/uL 06/23/2024 3:40 PM EDT [facility] Blood Structure of peripheral vein / Unknown Venipuncture / Unknown 06/23/2024 3:18 PM EDT 06/23/2024 3:31 PM EDT Teresa MCKEON LAB BLOOD ORDERABLES Final Result Performing Organization Address City/[facility]/ZIP Co de Phone Number [facility] [address] [place] [address], * (ABNORMAL) Cyclic Citrullinated Peptide (CCP) Antibody, IgG (06/23/2024 3:18 PM EDT) Cyclic Citrullinated Peptide (CCP) Ab (IgG) 50(H) UNITS 06/25/2024 9:40 AM EDT [facility] Comment: Reference Range Negative: ?<20 Weak Positive: ? 20-39 Moderate Positive: ?? 40-59 Strong Positive: ? >59 Blood Structure of peripheral vein / Unknown Venipuncture / Unknown 06/23/2024 3:18 PM EDT 06/23/2024 3:31 PM EDT Narrative [facility] 06/25/2024 9:40 AM EDT [facility] Received Date: Teresa MCKEON LAB BLOOD ORDERABLES Final Result Performing Organization Address City/[facility]/ZIP Co de Phone Number [facility] [address] [facility] 3rd [address], [place] [address], [place] [phone] [facility] [address] [facility] 3rd Floor, [place] [address], [place] [phone] * BRYNN Screen, IFA, w/Reflex to Titer & Pattern (06/23/2024 3:18 PM EDT) BRYNN Screen, IFA NEGATIVE NEGATIVE 1:23 PM EDT [facility] Comment: BRYNN IFA is a first [...] AC-0: Negative International Consensus on BRYNN Patterns (https://doi.org/10.1515/mcld-9142-1929) For additional information, please refer to http://education.OpenExchange/faq/OZH276 (This link is being provided for informational/ educational purposes only.) ?? Blood Structure of peripheral vein / Unknown Venipuncture / Unknown 06/23/2024 3:18 PM EDT 06/23/2024 3:31 PM EDT Narrative [facility] - 06/26/2024 1:23 PM EDT [facility] Received Date: us Teresa MCKEON LAB BLOOD ORDERABLES Final Result LINDA PRINCETON [address] [facility] 3rd [address], [place] [address], [place] [phone] [facility] [address] [facility] 3rd Floor, [place] [address], [place] [phone] * (ABNORMAL) Sedimentation rate, automated (06/23/2024 3:18 PM EDT) Sed Rate 88(H) <20 mm/Hr mm/Hr 06/23/2024 3:43 PM EDT [facility] Blood Structure of peripheral vein / Unknown Venipuncture / Unknown 06/23/2024 3:18 PM EDT 06/23/2024 3:31 PM EDT us Teresa MCKEON LAB BLOOD ORDERABLES Final Result Performing Organization Address City/[facility]/ZIP Co de Phone Number [facility] [address] [place] [address], [place] * (ABNORMAL) Rheumatoid factor (06/23/2024 3:18 PM EDT) Pathologist [facility] Rheumatoid Factor 207(H) <14 IU/mL 06/24/2024 11:47 AM EDT [facility] Blood Structure of peripheral vein / Unknown Venipuncture / Unknown 06/23/2024 3:18 PM EDT 06/23/2024 3:31 PM EDT [facility] - 06/24/2024 11:47 AM EDT [facility] Received Date:[id number] Teresa MCKEON LAB BLOOD ORDERABLES Final Result Performing Organization Address [facility] Co de Phone Number [facility] [address] [facility] 3rd Floor, [place] [address], [place] [phone] [facility] [address] [facility] 3rd Floor, [place] [address], [place] [phone] * (ABNORMAL) C-reactive protein (06/23/2024 3:18 PM EDT) [facility] C Reactive Protein 65.9(H) <=9.9 mg/L 06/23/2024 4:09 PM EDT [facility] Blood Structure of peripheral vein / Unknown Venipuncture / Unknown 06/23/2024 3:18 PM EDT 06/23/2024 3:31 PM EDT Teresa MCKEON LAB BLOOD ORDERABLES Final Result Performing Organization Address City/[facility]/ZIP Co de Phone Number [facility] [address] [place] [address], [place] * BRYNN Specific Antibody w/Reflex to [place] (06/23/2024 3:18 PM EDT) Pathologist [facility] BRYNN Screen, Immunoassay NEGATIVE NEGATIVE 06/25/2024 5:40 AM EDT [facility] Comment: A negative BRYNN Multiplex indicates the absence of detectable antibodies to component analytes consisting of double stranded DNA (dsDNA), chromatin, ribonucleoprotein (BIBLIOGRAPHIC SERVICES SPECIALIST), Pandey/BIBLIOGRAPHIC SERVICES SPECIALIST (Sm/BIBLIOGRAPHIC SERVICES SPECIALIST), Pandey (Sm), SS-A, SS-B, Rubi-1, centromere B, Scl-70 and ribosomal P. A negative result should be interpreted in the context of the clinical and laboratory findings and does not rule out autoimmune disease characterized by other autoantibody specificities such as rheumatoid arthritis, autoimmune hepatitis, primary biliary cirrhosis, autoimmune thyroiditis, [place]'s disease, pernicious anemia, autoimmune neuropathies, vasculitis, celiac disease, and bullous disease. For additional information, please refer to http://education.OpenExchange/faq/FVD438 (This link is being provided for informational/ educational purposes only.) ?? Blood Structure of peripheral vein / Unknown Venipuncture / Unknown 06/23/2024 3:18 PM EDT 06/23/2024 3:31 PM EDT [facility] - 06/25/2024 5:40 AM EDT [facility] Received Date: Teresa MCKEON LAB BLOOD ORDERABLES Final Result [facility] [address] [facility] 3rd Floor, [place] [address], [place] [phone] [facility] [address] [facility] 3rd Floor, [place] [address], [place] [phone] * (ABNORMAL) Comprehensive metabolic panel (06/23/2024 3:18 PM EDT) [facility] NA 137 135 - 145 mmol/L 06/23/2024 4:09 PM EDT [facility] K 3.1(L) 3.5 - 5.3 mmol/L 06/23/2024 4:09 PM EDT [facility] Cl 97(L) 98 - 107 mmol/L 06/23/2024 4:09 PM [facility] CO2 27 22 - 32 mmol/L 06/23/2024 4:09 PM [facility] Anion Gap 13 5 - 15 06/23/2024 4:09 PM [facility] Glucose 126(H) 65 - 99 mg/dL 06/23/2024 4:09 PM [facility] Creatinine 0.61 0.50 - 1.20 mg/dL 06/23/2024 4:09 PM [facility] Calcium 9.0 8.6 - 10.5 mg/dL 06/23/2024 4:09 PM [facility] Total Protein 7.7 6.0 - 8.0 g/dL 06/23/2024 4:09 PM [facility] Albumin 3.5 3.5 - 5.2 g/dL 06/23/2024 4:09 PM [facility] Bilirubin, Total 0.4 0.2 - 1.2 mg/dL 06/23/2024 4:09 PM [facility] Alkaline Phosphatase 75 35 - 129 U/L 06/23/2024 4:09 PM [facility] AST 45(H) 10 - 40 U/L 06/23/2024 4:09 PM [facility] ALT 38 10 - 40 U/L 06/23/2024 4:09 PM [facility] BUN 3(L) 7 - 23 mg/dL 06/23/2024 4:09 PM [facility] eGFR >90 >=60 mL/min/1. 73m2 06/23/2024 4:09 PM [facility] Comment:The estimated glomer [...] - 4.2 g/dL 06/23/2024 4:09 PM EDT [facility] A/G Ratio 0.8(L) 1.5 - 3.0 06/23/2024 4:09 PM EDT [facility] Blood Structure of peripheral vein / Unknown Venipuncture / Unknown 06/23/2024 3:18 PM EDT 06/23/2024 3:31 PM EDT us Teresa MCKEON LAB BLOOD ORDERABLES Final Result [facility] [address] [place] [address], [place] * X-Ray Foot Right 3+ Views [...] obtain the completed interpretation. ? Workstation ID: [id number] Narrative 06/23/2024 3:38 PM EDT COMPARISON: ??There [...] of the facet joints. Resulting Agency Comment [id number] Procedure Note Manuela Snow MD - 06/23/2024 [...] possible to obtain thecompleted interpretation. Workstation ID: [id number] Teresa MCKEON IMG XR PROCEDURES Final Re [...] obtain the completed interpretation. ? Workstation ID: [id number] Narrative 06/23/2024 3:38 PM EDT COMPARISON: ??There [...] of the facet joints. Resulting Agency Comment [id number] Procedure Note Manuela Snow MD - 06/23/2024 [...] possible to obtain thecompleted interpretation. Workstation ID: [id number] Teresa Mehta PA IMG XR PROCEDURES Final [...] obtain the completed interpretation. ? Workstation ID: [id number] Narrative 06/23/2024 3:38 PM EDT COMPARISON: ??There [...] of the facet joints. Resulting Agency Comment [id number] Procedure Note Manuela Snow MD - 06/23/2024 [...] possible to obtain thecompleted interpretation. Workstation ID: [id number] us Teresa MCKEON IMG XR PROCEDURES Final [...] obtain the completed interpretation. ? Workstation ID: [id number] Narrative 06/23/2024 3:38 PM EDT COMPARISON: ??There [...] of the facet joints. Resulting Agency Comment [id number] Procedure Note Manuela Snow MD - 06/23/2024 [...] possible to obtain thecompleted interpretation. Workstation ID: [id number] Teresa MCKEON IMG XR PROCEDURES Final Re [...] obtain the completed interpretation. ? Workstation ID: [id number] Narrative 06/23/2024 3:38 PM EDT COMPARISON: ??There [...] of the facet joints. Resulting Agency Comment [id number] Procedure Note Manuela Snow MD - 06/23/2024 [...] possible to obtain thecompleted interpretation. Workstation ID: [id number] Teresa MCKEON IMG XR PROCEDURES Final Re [...] obtain the completed interpretation. ? Workstation ID: [id number] Narrative 06/23/2024 3:38 PM EDT COMPARISON: ??There [...] of the facet joints. Resulting Agency Comment [id number] Procedure Note Manuela Snow MD - 06/23/2024 [...] possible to obtain thecompleted interpretation. Workstation ID: [id number] Teresa MCKEON IMG XR PROCEDURES Final Re [...] obtain the completed interpretation. ? Workstation ID: [id number] Narrative 06/23/2024 3:38 PM EDT COMPARISON: ??There [...] of the facet joints. Resulting Agency Comment [id number] Procedure Note Manuela Snow MD - 06/23/2024 [...] possible to obtain thecompleted interpretation. Workstation ID: [id number] Teresa MCKEON IMG XR PROCEDURES Final Re [...] obtain the completed interpretation. ? Workstation ID: [id number] Narrative 06/23/2024 3:38 PM EDT COMPARISON: ??There [...] of the facet joints. Resulting Agency Comment [id number] Procedure Note Manuela Snow MD - 06/23/2024 [...] possible to obtain thecompleted interpretation. Workstation ID: [id number] Teresa MCKEON IMG XR PROCEDURES Final Re [...] obtain the completed interpretation. ? Workstation ID: [id number] Narrative 06/23/2024 3:38 PM EDT COMPARISON: ??There [...] of the facet joints. Resulting Agency Comment [id number] Procedure Note Manuela Snow MD - 06/23/2024 [...] possible to obtain thecompleted interpretation. Workstation ID: [id number] us Teresa MCKEON IMG XR PROCEDURES Final [...] obtain the completed interpretation. ? Workstation ID: [id number] Narrative 06/23/2024 3:38 PM EDT COMPARISON: ??There [...] of the facet joints. Resulting Agency Comment [id number] Procedure Note Manuela Snow MD - 06/23/2024 [...] possible to obtain thecompleted interpretation. Workstation ID: [id number] us Teresa MCKEON IMG XR PROCEDURES Final Re sult * XR Knee, Outside Result (06/06/2024) Anatomical Region Laterality Modality Other 06/06/2024 us Onbase Scan [facility] AMB EXTERNAL RESULT PROCEDURE S Final Result * LAB - SCANNED (06/02/2024) us Onbase [facility] LAB HISTORICAL RESULTS Final Result from Last 3 Months Insurance [facility] Care Teams Assembler Corncob Pipes Relationship Specialty Start Date End Date Joanne Chino [address] [place] [address] PCP - General Family Medicine 04/03/24
[2024-08-04 11:06] LABS: MANUAL DIFF FLAG NO
[2024-08-04 11:17] LABS: Estimated Average Glucose 128 mg/dL; Hemoglobin A1C 141.2281 umol/L; Hemoglobin A1c % 6.1 % (<6.0); Total Hemoglobin (HGBA1C) 3265.2423 umol/L
[2024-08-04 11:23] LABS: Basophils Percent Auto 0.5 % (0-2); Eosinophils Percent Auto 0.5 % (0-4); Hematocrit 39.6 % (37.0-47.0); Hemoglobin 12.3 g/dl (12.0-16.0); Imm Gran Abs Auto 0.05 X10*3/uL (0.00-0.03); Imm Gran Pct Auto 0.6 % (0.0-0.4); Lymphocytes Absolute Auto 2.3 X10*3/uL (1.2-4.9); Lymphocytes Percent Auto 26.1 % (20-40); Mean Corpuscular HGB Conc 31.1 g/dl (31.0-35.0); Mean Corpuscular Hemoglobin 27.2 pg (27.0-33.0); Mean Corpuscular Volume 87.6 fL (80.0-98.0); Mean Platelet Volume 9.8 fL (9.4-12.3); Monocytes Absolute Auto 0.4 X10*3/uL (0.1-1.2); Monocytes Percent Auto 4.9 % (2-11); Neutrophils Absolute Auto 5.8 x10*3/uL (2.0-8.3); Neutrophils Percent Auto 67.4 % (45-73); Platelet Count 322 X10*3/uL (160-400); Red Blood Count 4.52 X10*6/uL (4.20-5.50); Red Cell Distribution Width 16.7 % (11.0-16.0); White Blood Count 8.6 X10*3/uL (4.8-10.8)
[2024-08-04 12:12] LABS: Alanine Aminotransferase 48 U/L (0-31); Albumin Level 3.9 g/dL (3.5-5.0); Alkaline Phosphatase 90 U/L (39-117); Anion Gap 12 (12-20); Aspartate Amino Transferase 40 U/L (5-31); Bilirubin Total 0.3 mg/dL (0.0-1.0); Blood Urea Nitrogen 9 mg/dL (9-16); Calcium 8.5 mg/dL (8.4-10.2); Carbon Dioxide 22 mmol/L (22-29); Chloride 106 mmol/L (96-108); Estimated Glomerular Filt Rate > 60; Glucose Random 168 mg/dL (60-115); Potassium 3.3 mmol/L (3.3-5.1); Sodium 137 mmol/L (135-145); TSH reflex Free T4 2.24 uIU/mL (0.32-4.0); Total Protein 7.3 g/dL (6.5-8.0)
== END 2024-08-04 09:03 | disposition home or self-care (01) ==
LOC: HO.HHCL 09:02
PROVIDERS: Visit Provider Nurse Practitioner Family
DX: Z13.1 Encounter for screening for diabetes mellitus (principal); R53.82 Chronic fatigue, unspecified
CPT/HCPCS: 36415; 80053; 83036; 84443; 85025

== ENCOUNTER 2024-10-20 14:11 | Outpatient (REF) | payer OTHER, SELFPAY ==
--- OUTSIDE RECORDS SUMMARY | 2024-10-20 14:20 | XMS_ITS | Encounter Summary ---
Author Organization [facility] Address [address] [place] [address] Care Team Providers Care Telegraph Messenger Name Role Phone Joanne Chino Primary Care Provider Reason for Visit * Reason Onset Date Comments PAC RX Refill 09/15/2024 Encounter Details Date Type Department Care Team (Late st Contact Info) Description 09/15/2024 Telephone [facility] [address], [place] [phone] Loan Officer Assistant: Chela Gabriel Telephone Intake, Staff PAC RX Refill Social History Tobacco Use Types Packs/Day [...] encounter Miscellaneous Notes * Telephone Encounter - Chantel Solis - 09/22/2024 2:54 PM EDT Who is calling: Gita Mac Call back Number: [phone] -Medication Questions/Refills: Pt requesting refill of Prednisone be sent to [facility] pharmacy. Also refills be placed for Rinvoq to [facility] Specialty -If having Symptoms/Flare up/Pain: Swollen L Knee and hand * Telephone Encounter - Brandi Luke LPN - 09/16/2024 4:00 PM EDT Images from the original note were not included. MIKE Minaya to [facility] 09/16/24 9:46 AM Trying to taper-refill on the 15 mg thanks * Telephone Encounter - Brandi Luke LPN - 09/16/2024 9:17 AM EDT Last rx was d/c'd on 08/12 (2 tabs=20 mg) and new rx sent for 1.5 tabs=15 mg instead. Which rx do you want to refill? * Telephone Encounter - Amber Davies - 09/15/2024 11:39 AM EDT Prescription Request Drug name(s): predniSONE (DELTASONE) 10 mg table Dose: Take 2 tablets (20 mg total) by mouth once a day Interval: by mouth once a day Date Last Filled: 08/12/2024 Quantity: 20 mg, oral, Daily Ordering provider: MIKE Minaya Refill? (yes or no): yes Pt is requesting for refill. [facility] [address] [phone] Amber Davies documented in this encounter Plan of Treatment Upcoming Encounters Date Type Department Care Team (Late st Contact Info) Description 01/30/2025 2:00 PM EST Follow-Up [facility] [address] [place] [address] Loan Officer Assistant: Teresa Charles PA [address] [place] [address] documented as of this encounter Visit Diagnoses Diagnosis Rheumatoid arthritis involving multiple sites with positive rheumatoid factor (HCC) documented in this encounter Care Teams Telegraph Messenger Relationship Specialty Start Date End Date Joanne Chino [address] [place] [phone] PCP - General Family Medicine 04/03/24 documented as of this encounter
--- OUTSIDE RECORDS SUMMARY | 2024-10-20 14:20 | XMS_ITS | Encounter Summary ---
Author Organization [facility] Address [address] [facility] [address] [place] [address] Care Team Providers Care Dietitian Therapeutic Name Role Phone Joanne Chino NP Primary Care Provider [phone] Reason for Referral * Consultation (Routine) - Closed Specialty Diagnoses / Procedures Referred By Manuel franco Referred To Contact Sleep Medicine Diagnoses Chronic fatigue Joanne Chino NP [address] [place] [address] Phone: tel: fax: Sleep Medicine Service [facility] [address], [address] [place] [address] Phone: tel: fax: Referral ID Status Reason Start Date Expiration Date V isits Requested Visits Authorized [id number] Closed Specialty Services Required 08/01/2024 08/01/2025 1 1 Encounter Details Date Type Department Care Team (Late st Contact Info) Description 08/01/2024 Orders Only [facility] [address] [place] [address] Joanne Chino NP [address] [place] [address] Chronic fatigue (Primary Dx) Social History Tobacco [...] Care Team (Late st Contact Info) Description 12/23/2024 1:30 PM EDT Clinical Support [facility] [address] [place] [phone] Franca Murillo, ALBERTO Scheduled Referrals Name Type Priority Associated Diagnoses Orde r Schedule Referral to Sleep Medicine Outpatient Referral Routine Chronic fatigue Expected: 08/01/2024 (Approximate), Expires: 08/01/2025 documented as of this encounter Procedures Procedure Name Priority Date/Time Associated Diagnosis Comments TSH W/REFLEX TO FT4 Routine 08/04/2024 9 :04 AM EDT Chronic fatigue HEMOGLOBIN A1C Routine 08/04/2024 9:04 AM EDT Chronic fatigue COMPREHENSIVE METABOLIC PANEL Routine 08/04/2024 9:04 AM EDT Chronic fatigue CBC WITH AUTO DIFFERENTIAL Routine 08/04/2024 9:01 AM EDT Chronic fatigue documented in this encounter Results * (ABNORMAL) Hemoglobin A1c (08/04/2024 9:04 AM EDT) Hemoglobin A1c 6.1(H) <6.0 % [facility] Comment:Hemoglobin A1C Refer ence Range Adults: 4.8 - 6.0 % Non diabetic: < 6.0 % Goal: < 7.0 %Additional Action Suggested: > 8.0 %Note: Hemoglobin A1c results are invalid for patients with abnormal amounts of HbF. Blood transfusions may impact the HbA1c concentration in the patient sample. Estimated Average Glucose 128 mg/dL [facility] Comment:eAG = Estimated ave rage glucose which is %A1C expressed asaverage glucose, using the formula of the [id number] Glucose study (ADAG), Diabetes Care, Vol.31,#8,Oct. 2007 Blood Venous blood specimen / Unknown 08/04/2024 9:04 AM EDT 08/04/2024 11:03 AM EDT us Joanne Chino HEARING SCREEN COORDINATOR LAB BLOOD ORDERABLES Final Resul t [facility] [address] [place] [address] [phone] * (ABNORMAL) Comprehensive Metabolic Panel (08/04/2024 9:04 AM EDT) Sodium 137 135 - 145 mmol/L [facility] Potassium 3.3 3.3 - 5.1 mmol/L [facility] Chloride 106 96 - 108 mmol/L [facility] Carbon Dioxide 22 22 - 29 mmol/L [facility] Anion Gap 12 12 - 20 [facility] Urea Nitrogen (BUN) 9 9 - 16 mg/dL [facility] Creatinine, Serum 0.71 0.5 - 1.4 mg/dL [facility] Estimated Glomerular Filt Rate >60 [facility] Comment:Chronic Kidney Disea se: Estimated GFR < 60 mL/min/[id number] Kidney Disease: Estimated GFR < 15 mL/min/1.73m2 Glucose 168(H) 60 - 115 mg/dL [facility] Calcium 8.5 8.4 - 10.2 mg/dL [facility] Bilirubin, Total 0.3 0.0 - 1.0 mg/dL [facility] Aspartate Amino Transferase 40(H) 5 - 31 U/L [facility] Alanine Aminotransferase 48(H) 0 - 31 U/L [facility] Total Protein 7.3 6.5 - 8.0 g/dL [facility] Albumin Level 3.9 3.5 - 5.0 g/dL [facility] Alkaline Phosphatase 90 39 - 117 U/L [facility] Blood Venous blood specimen / Unknown 08/04/2024 9:04 AM EDT 08/04/2024 11:03 AM EDT us Joanne Chino HEARING SCREEN COORDINATOR LAB BLOOD ORDERABLES Final Resul t [facility] [address] [place] [phone] * TSH W/Reflex to FT4 (08/04/2024 9:04 AM EDT) TSH reflex Free T4 2.24 0.32 - 4.0 uIU/mL [facility] Blood Venous blood specimen / Unknown 08/04/2024 9:04 AM EDT 08/04/2024 11:03 AM EDT us Joanne Chino HEARING SCREEN COORDINATOR LAB BLOOD ORDERABLES Final Resul t [facility] [address] [place], [place] [phone] * (ABNORMAL) CBC auto differential (08/04/2024 9:01 AM EDT) White Blood Count 8.6 4.8 - 10.8 X10*3/uL [facility] Red Blood Count 4.52 4.20 - 5.50 X10*6/uL [facility] Hemoglobin 12.3 12.0 - 16.0 g/dl [facility] Hematocrit 39.6 37.0 - 47.0 % [facility] Mean Corpuscular Volume 87.6 80.0 - 98.0 fL [facility] Mean Corpuscular Hemoglobin 27.2 27.0 - 33.0 pg [facility] Mean Corpuscular HGB Conc 31.1 31.0 - 35.0 g/dl [facility] Red Cell Distribution Width 16.7(H) 11.0 - 16.0 % [facility] Platelet Count 322 160 - 400 X10*3/uL [facility] Mean Platelet Volume 9.8 9.4 - 12.3 fL [facility] Neutrophils Percent Auto 67.4 45 - 73 % [facility] Imm Gran Pct Auto 0.6(H) 0.0 - 0.4 % [facility] Lymphocytes Percent Auto 26.1 20 - 40 % [facility] Monocytes Percent Auto 4.9 2 - 11 % [facility] Eosinophils Percent Auto 0.5 0 - 4 % [facility] Basophils Percent Auto 0.5 0 - 2 % [facility] NRBC Pct Auto 0.0 0.0 - 0.2 /100WBC [facility] Neutrophils Absolute Auto 5.8 2.0 - 8.3 x10*3/uL [facility] Imm Gran Abs Auto 0.05(H) 0.00 - 0.03 X10*3/uL [facility] Lymphocytes Absolute Auto 2.3 1.2 - 4.9 X10*3/uL [facility] Monocytes Absolute Auto 0.4 0.1 - 1.2 X10*3/uL [facility] Eosinophils Absolute Auto 0.0 0.0 - 0.4 X10*3/uL [facility] Basophils Absolute Auto 0.0 0.0 - 0.2 X10*3/uL [facility] NRBC Abs Auto 0.000 0.0 - 0.012 X10*3/uL [facility] Blood Venous blood specimen / Unknown 08/04/2024 9:01 AM EDT 08/04/2024 11:03 AM EDT us Joanne Chino NP LAB BLOOD ORDERABLES Final Resul t [facility] [address] [place] [phone] documented in this encounter Visit Diagnoses Diagnosis Chronic fatigue- Primary Other malaise and fatigue documented in this encounter Additional Health Concerns Assessment Noted Time PHQ-9 Depression Total Score: 0 08/31/19 24 2:53 PM EDT documented as of this encounter Care Teams Dietitian Therapeutic Relationship Specialty Start Date End Date Joanne Chino NP [address] [place] [phone] PCP - General Family Medicine 08/31/23 documented as of this encounter
[2024-10-20 16:14] LABS: MANUAL DIFF FLAG NO
[2024-10-20 16:25] LABS: Hematocrit 35.4 % (37.0-47.0); Hemoglobin 11.1 g/dl (12.0-16.0); Imm Gran Abs Auto 0.01 X10*3/uL (0.00-0.03); Imm Gran Pct Auto 0.1 % (0.0-0.4); Lymphocytes Absolute Auto 2.1 X10*3/uL (1.2-4.9); Mean Corpuscular HGB Conc 31.4 g/dl (31.0-35.0); Mean Corpuscular Hemoglobin 28.1 pg (27.0-33.0); Mean Corpuscular Volume 89.6 fL (80.0-98.0); NRBC Abs Auto 0.000 X10*3/uL (0.0-0.012); NRBC Pct Auto 0.0 /100WBC (0.0-0.2); Platelet Count 293 X10*3/uL (160-400); Red Blood Count 3.95 X10*6/uL (4.20-5.50); White Blood Count 6.7 X10*3/uL (4.8-10.8)
[2024-10-20 16:31] LABS: Hemoglobin A1C 118.1783 umol/L; Total Hemoglobin (HGBA1C) 2995.8642 umol/L
[2024-10-20 16:42] LABS: Alanine Aminotransferase 62 U/L (0-31); Albumin Level 4.3 g/dL (3.5-5.0); Alkaline Phosphatase 95 U/L (39-117); Anion Gap 10 (12-20); Aspartate Amino Transferase 44 U/L (5-31); Blood Urea Nitrogen 9 mg/dL (9-16); Calcium 9.2 mg/dL (8.4-10.2); Carbon Dioxide 25 mmol/L (22-29); Chloride 110 mmol/L (96-108); Estimated Glomerular Filt Rate > 60; Potassium 4.0 mmol/L (3.3-5.1); Sodium 141 mmol/L (135-145); Total Protein 7.6 g/dL (6.5-8.0)
== END 2024-10-20 14:12 | disposition home or self-care (01) ==
LOC: HO.HHCL 14:11
PROVIDERS: PCP Nurse Practitioner Family; Visit Provider Nurse Practitioner Family
DX: Z12.39 Encounter for other screening for malignant neoplasm of breast (principal); R23.3 Spontaneous ecchymoses; G62.9 Polyneuropathy, unspecified
CPT/HCPCS: 36415; 80053; 83036; 85025

== ENCOUNTER 2025-03-09 13:34 | Outpatient (REF) | payer OTHER, SELFPAY ==
--- OUTSIDE RECORDS SUMMARY | 2025-03-09 13:15 | XMS_ITS | Encounter Summary ---
Author Organization [employer] Address [address] [facility] [address] [place] [address] Care Team Providers Care Marketing Operations Assistant Name Role Phone Joanne Chino NP Primary Care Provider Encounter Details Date Type Department Care Team (Latest Contact Info) Description 03/09/2025 1:15 PM EST Office Visit [facility] [address], [place] [phone] Joanne Chino NP [address] [place], [place] [phone] Type 2 diabetes mellitus with hyperosmolarity without coma, without long-term current use of insulin (HCC) (Primary Dx); Hernia of abdominal wall; Acute non-recurrent frontal sinusitis Social History Tobacco Use Types Packs/Day Years [...] Answer Date Recorded Patient Health Questionnaire-9 Score 22 11/25/2024 Patient Health Questionnaire-9 Score 22 11/25/2024 Last PHQ-9: Questionnaire Data Not on file 0 11/25/2024 Housing Stability Answer Date Recorded What is [...] got money to buy more: Often true 08/25/2024 Within the past 12 months,th e food you bought just didn't last and you didn't have enough money to get more: Often true 11/2024 Transportation Answer Date Recorded In the past 12 months, has l ack of transportation kept you from medical appts, meetings, work or from getting things needed for daily living? No 01/08/2023 Utilities Answer Date Recorded In the past 12 months, has t he electric, gas, oil or water company threatened to shut off services in your home? No 08/25/2024 Depression Answer Date Recorded Patient Health Questionnaire-2 Score 5 11/25/2024 Internet Access Answer Date Recorded Internet Access [...] Sign Reading Time Taken Comments Blood Pressure 142/90 03/09/2025 1:05 PM EST Pulse 88 03/09/2025 1:05 PM EST Temperature 36.9 C (98.5 F) 03/09/2025 1:05 PM EST Respiratory Rate 16 03/09/2025 1:05 PM EST Oxygen Saturation 95% 03/09/2025 1:05 PM EST Inhaled Oxygen Concentration - - Weight 100 kg (221 lb 8 oz) 03/09/2025 1:[address] Height 160 cm (5' 3 ) 03/09/2025 1:05 PM EST Body Mass Index 39.24 03/09/2025 1:05 PM EST documented in this encounter Progress Notes * Joanne Chino NP - 03/09/2025 1:15 PM EST Gita Francis Navarro, age 44, female - Had pain in kidney area prior to recent hospitalization - Underwent CT scan, exploratory surgery revealed internal hernia, defect repaired - Received antibiotics for urinary tract infection during hospitalization - Reports ongoing abdominal pain and difficulty with bowel movements since surgery - Constipation persists despite use of Linzess, Colace, and MiraLAX; Linzess discontinued due to lack of efficacy - Reports swelling and pain radiating from abdomen to ear and head for past 3 days - Denies recent cold - Reports dry, cracking fingers attributed to eczema - Currently taking prednisone for eczema - Reports multiple bruises on legs, attributed to prednisone - Reports sinus pain and sensation of congestion in head - Denies fever - Reports history of total hysterectomy 4-5 years ago for pain and possible fibroid, not for cancer - Reports depression and social isolation IMPRESSION: Left-sided nephrolithiasis without evidence of obstructive uropathy. Focal volvulus versus internal hernia within the right lower quadrant, similar to the previous exam Status post gastric bypass surgery. Hospital Course The patient is a 44 year old female with history of morbid obesity s/p Ofelia-en-Y gastric bypass (2020), CHF, hypertension, diabetes, recurrent left Procedures Performed This Visit Indication for Surgery 44F with history of morbid obesity s/p Ofelia-en-Y gastric bypass (2020), CHF, hypertension, diabetes, recurrent left pyelonephritis, and rheumatoid arthritis (prednisone) who presented with nausea vomiting and abdominal pain and CT findings suggestive of internal hernia who was brought to the operating room for diagnostic laparoscopy. Preoperative Diagnosis Internal hernia Firefox [email or web address] 1 of 7 02/24/2025, 1:17 PM pyelonephritis, and rheumatoid arthritis (prednisone) admitted to surgery with imagingfindings concerning for internal hernia now s/p diagnostic laparoscopy with reduction of internal hernia and closure of jj mesenteric defect performed on 02/[address] Godwin. The procedure was tolerated well and the patient was transferred to the PACU in stable, clinical condition. DVT prophylaxis was maintained throughout hospital stay. Of note, the patient presented with UTI on admission. With history of ESBL, ID consulted. Urine cultures grew Ecoli and antibiotics were transtiioned to Bactrim for 7 day course per ID. Diet was advanced as tolerated. Once tolerating diet with adequate oral pain control, the patient was ready for discharge. Upon discharge, she was in stable clinical condition. She was ambulating, voiding, and tolerating a diet without nausea or vomiting. She was sent home with pain medication, stool softeners, antibiotics to complete a 7d course and instructions to followup with Dr. Delgado (bariatric surgery) in two to three weeks. Follow-Up Appointments Added Follow Up Time Frame Comments Gustavo Delgado MD 2 to 3 weeks Pleasecall to schedule follow up after surgery Patient Instructions Postoperative Instructions Activity :Get plenty of rest after surgery, however we would still like you to be active and walk several times a day. Increase your walking distance as you feel able. Continue with light activities for 1 to 2 weeks then ease yourself back into regular activities. No strenuous exercise until 4 weeks after surgery. Medication changes that occurred during hospitalization include: Added Bactrim DS 800-160 mg twice a day x 7 days Oxycodone 5 mg every 4 h Problem List[1] Medical History[2] Allergies[3] Review of Systems Constitutional: Negative for activity change and appetite change. HENT: Positive for sinus pressure and sinus pain. Respiratory: Negative for apnea and chest tightness. Gastrointestinal: Negative for abdominal distention and abdominal pain. Musculoskeletal: Negative for arthralgias. BP (!) 142/90 (BP Location: Left arm, Patient Position: Sitting, BP Cuff Size: Large adult) Pulse88 Temp 98.5 ??F (36.9 ??C) (Oral) Resp 16 Ht 5' 3 (1.6 m) Wt 221 lb 8 oz (100 kg) SpO2 95% BMI 39.24 kg/m?? Physical Exam Vitals reviewed. Constitutional: Appearance: She is obese. HENT: Head: Normocephalic and atraumatic. Nose: Nose normal. Eyes: Conjunctiva/sclera: Conjunctivae normal. Cardiovascular: Rate and Rhythm: Normal rate and regular rhythm. Pulmonary: Effort: Pulmonary effort is normal. Breath sounds: Normal breath sounds. Musculoskeletal: Cervical back: Normal range of motion and neck supple. Neurological: General: No focal deficit present. Mental Status: She is alert. - HEENT: Ear examination showed no abnormalities. Throat examination performed with patient saying ah. - CARDIOVASCULAR: Tachycardia. Hypertension. - LUNGS: Decreased breath sounds on the right side initially, but resolved upon re-examination. Oxygen saturation 95%. - SKIN: Examination noted xerosis and ecchymosis on lower extremities. Results: Office Visit on 03/09/2025 Component Date Value Ref Range Status Glucose Blood, POC 03/09/2025 121 60 - 200 mg/dL Final QC Media Lot # 03/09/2025 [id number] Final Lot# Expiration Date 03/09/[phone],871 Final Assessment & Plan Type 2 diabetes mellitus with hyperosmolarity without coma, without long-term current use of insulin (HCC) Orders: POCT Glucose Hernia of abdominal wall Orders: Comprehensive Metabolic Panel; Future CBC auto differential; Future Acute non-recurrent frontal sinusitis Orders: CBC auto differential; Future Assessment & Plan Type 2 diabetes mellitus with hyperosmolarity without coma, without long-term current use of insulin (HCC): - Ordered blood draw to assess current status. Hernia of abdominal wall: - Status post internal hernia repair; post-operative abdominal pain. - Will call surgeon's office (Dr. Delgado) to arrange follow-up appointment in 2-3 weeks. Patientagreed to follow-up. Monitor for signs of infection or complications. Advised to keep bowels movingto prevent post-operative complications. Acute non-recurrent frontal sinusitis: - Acute sinus infection following recent antibiotic exposure. - Prescribed azithromycin (Z-Jack): 2 tablets on day 1, then 1 tablet daily on days 2-5. Advised to call back if symptoms do not improve in 3 days for alternative therapy. - Risks and side effects: Discussed potential for cramping with Dulcolax; no other risks or side effects discussed for azithromycin. Constipation and bowel management: - Constipation following abdominal surgery, with difficulty passing stool and abdominal pain. - Recommended daily use of Colace (docusate sodium) and MiraLAX. Prescribed Dulcolax (bisacodyl) pill as needed if no bowel movement for 2 days, with advice to limit use to twice weekly. Advised to call if medications are ineffective. Emphasized importance of bowel movement to prevent infection. - Risks and side effects: Discussed cramping as a side effect of Dulcolax. Eczema: - Eczema with dry, cracking skin; ecchymosis attributed to prednisone use. - Continue prednisone as currently prescribed. Depression: - Depression with social isolation; currently taking Zoloft. - Offered referral for mental health support; patient declined at this time. Prescription - Colace red gel capsule, once daily to maintain stool softness - Dulcolax tablet, as needed after 2 days without bowel movement, limit to twice weekly (may cause cramping) - MiraLAX powder, once daily in liquid - Azithromycin Z-Pack: 2 tablets on day 1, then 1 tablet daily on days 2-5 - Zofran for nausea, as prescribed (use with caution) Appointments - Follow-up with Dr Delgado in 2 to 3 weeks Current Medications[4] This note was drafted using Ambient (AI) technology. The patient/patient's guardian has been informed and has consented to the use of this technology: Yes [1] Patient Active Problem List Diagnosis Acute otitis media Alopecia Hypertension Chloasma Chronic pain syndrome Heart failure with reduced ejection fraction (HCC) COVID-19 DMII (diabetes mellitus, type 2) (HCC) Sore throat Rosacea Rheumatoid factor positive Rheumatoid arthritis (CMS/HCC) (HCC) Mass of ovary Lentigo Kidney stone Hypoadrenalism (CMS/HCC) Psoriasis Bilateral ovarian cysts Nonischemic cardiomyopathy (CMS/HCC) (HCC) Severe obesity (CMS/HCC) (HCC) Abdominal pain H/O gastric bypass Elevated lipoprotein(a) Hot flashes Dietary counseling Exercise counseling Wheeze Nausea Non-restorable tooth Hyperglycemia Iron deficiency anemia Chronic fatigue Long-term current use of opiate analgesic Breast screening Morbid obesity (CMS/HCC) (HCC) Tinea Severe depression (CMS/HCC) (HCC) [2] Past Medical History: Diagnosis Date Depression Diabetes mellitus (HCC) Heart failure (HCC) Hypertension Rheumatoid arthritis (CMS/HCC) (HCC) [3] Allergies Allergen Reactions Ceftriaxone Other reaction(s): pruritis without rash [4] Current Outpatient Medications: acarbose (Precose) 50 MG tablet, TAKE 1 TABLET BY MOUTH THREE TIMES DAILY, Disp: 90 tablet, Rfl: 0 acetaminophen (Tylenol Extra Strength) 500 MG tablet, Take 1 tablet (500 mg) by mouth every 6 (six)hours if needed for mild pain for up to 10 days., Disp: 30 tablet, Rfl: 0 albuterol (2.5 MG/3ML) 0.083% nebulizer solution, TAKE 1 AMPULE USING A NEBULIZER EVERY 6 HOURS NEEDED FOR WHEEZING OR SHORTNESS OF BREATH, Disp: 90 mL, Rfl: 1 Alcohol Swabs (Alcohol Prep) 70 % pads, USE DIRECTED THREE TIMES DAILY, Disp: 100 each, Rfl: 11 azithromycin (Zithromax) 250 MG tablet, Take 2 tablets (500 mg) by mouth Once per day for 1 day, THEN 1 tablet (250 mg) Once per day for 4 days., Disp: 6 tablet, Rfl: 0 bisacodyl (Dulcolax) 5 MG EC tablet, Take 1 tablet (5 mg) by mouth if needed each day for constipation. Do not crush, chew, or split., Disp: 30 tablet, Rfl: 0 buPROPion (Wellbutrin) 100 MG tablet, Take 1 tablet by mouth 2 times daily., Disp: , Rfl: busPIRone (Buspar) 15 MG tablet, , Disp: , Rfl: cholecalciferol (Vitamin D-3) 50 MCG (2000 UT) capsule, Take 1 capsule by mouth in the morning., Disp: , Rfl: docusate sodium (Colace) 100 MG capsule, Take 1 capsule (100 mg) by mouth Once per day., Disp: 30 capsule, Rfl: 1 Entresto 24-26 MG tablet, TAKE 1 TABLET BY MOUTH TWICE DAILY IN THE MORNING AND IN THE EVENING, Disp: , Rfl: ferrous gluconate (Fergon) 324 (38 Fe) MG tablet, Take 1 tablet (324 mg) by mouth every other day.,Disp: 15 tablet, Rfl: 11 fluticasone (Flonase) 50 MCG/ACT nasal spray, USE 1 SPRAY IN EACH NOSTRIL ONCE DAILY IN THE MORNING, Disp: 48 g, Rfl: 0 folic acid (Folvite) 1 MG tablet, Take 1,000 mcg by mouth in the morning., Disp: , Rfl: furosemide (Lasix) 40 MG tablet, Take 1.5 tablets by mouth 1 (one) time each day., Disp: , Rfl: gabapentin (Neurontin) 300 MG capsule, Take 1 capsule (300 mg) by mouth 2 times daily. And 800 mg at bed time, Disp: 60 capsule, Rfl: 11 gabapentin (Neurontin) 800 MG tablet, TAKE 1 TABLET BY MOUTH DAILY AT BEDTIME, Disp: 30 tablet, Rfl: 0 glucose blood (FREESTYLE LITE) test strip, every 12 (twelve) hours., Disp: , Rfl: hydroxychloroquine (Plaquenil) 200 MG tablet, Take 1 tablet by mouth 2 times daily., Disp: , Rfl: Linzess 290 MCG capsule, Take 1 capsule by mouth in the morning., Disp: , Rfl: LORazepam (Ativan) 1 MG tablet, Take 1 tablet by mouth if needed each day for anxiety., Disp: , Rfl: metoprolol tartrate (Lopressor) 25 MG tablet, TAKE 1 AND 1/2 TABLETS BY MOUTH TWICE DAILY IN THE MORNING AND IN THE EVENING, Disp: 270 tablet, Rfl: 1 Multiple Vitamins-Minerals (CENTRUM ADULT PO), Take 1 tablet by mouth 1 (one) time each day. OTC, Disp: , Rfl: naloxone (Narcan) 4 mg/0.1 mL nasal spray, Administer 1 spray (4 mg) into affected nostril(s) if needed for opioid reversal., Disp: 2 each, Rfl: 0 Nebulizers misc, 1 each if needed in the morning, at noon, in the evening, and at bedtime (cough, wheezing)., Disp: 1 each, Rfl: 0 ondansetron (Zofran) 4 MG tablet, Take 2 tablets (8 mg) by mouth every 8 (eight) hours if needed for nausea or vomiting for up to 7 days., Disp: 20 tablet, Rfl: 0 oxyCODONE (Roxicodone) 5 MG immediate release tablet, Take 2 tablets (10 mg) by mouth every 8 (eight) hours if needed for severe pain. Do not start before February 25, 2025., Disp: 168 tablet, Rfl: 0 pantoprazole (ProtoNix) 40 MG EC tablet, Take 1 tablet by mouth in the morning., Disp: , Rfl: Polyethylene Glycol 3350 (PEG 3350) 17 GM/SCOOP powder, MIX 17 GRAMS WITH BEVERAGE AND DRINK ONCE DAILY. CAN INCREASE TO 2 OR 3 TIMES A DAY NEEDED FOR CONSTIPATION, Disp: , Rfl: polyethylene glycol, PEG, 3350 (MiraLax) 17 GM/SCOOP powder, Take 17 g by mouth Once per day., Disp: 510 g, Rfl: 0 Rasuvo 15 MG/0.3ML solution auto-injector, Inject 15 mg under the skin every 7 (seven) days., Disp:, Rfl: Rinvoq 15 MG tablet sustained-release 24 hour, Take 1 tablet by mouth Once per day., Disp: , Rfl: sertraline (Zoloft) 100 MG tablet, Take 1 tablet by mouth in the morning., Disp: , Rfl: simvastatin (Zocor) 20 MG tablet, TAKE 1 TABLET BY MOUTH AT BEDTIME, Disp: 90 tablet, Rfl: 3 sodium chloride (Pleasants Nasal Chapin) 0.65 % nasal spray, 1-2 sprays on each nostril every 2-3 hours as needed for nasal congestion, Disp: 30 mL, Rfl: 1 Spacer/Aero-Holding Chambers (OptiChamber Mera) misc, 1 each every 4 (four) hours if needed (asthma)., Disp: 1 each, Rfl: 0 spironolactone (Aldactone) 25 MG tablet, TAKE 1 TABLET BY MOUTH EVERY EVENING, Disp: 30 tablet, Rfl: 0 sucralfate (Carafate) 1 GM/10ML suspension, Take 1 g by mouth before breakfast, before lunch, before evening meal, and at bedtime., Disp: , Rfl: Trintellix 10 MG tablet, Take 1 tablet by mouth Once per day., Disp: , Rfl: TRUEplus Lancets 33G misc, USE DIRECTED TO TEST BLOOD SUGAR THREE TIMES DAILY, Disp: 100 each, Rfl: 11 Trulance tablet tablet, Take 1 tablet by mouth in the morning., Disp: , Rfl: Ventolin HFA 108 (90 Base) MCG/ACT inhaler, INHALE 2 PUFFS BY MOUTH EVERY 4 HOURS NEEDED FOR WHEEZING OR SHORTNESS OF BREATH, Disp: 18 g, Rfl: 1 Witch Rose (Hemorrhoidal Hygiene) 50 % pads, USE DIRECTED, Disp: , Rfl: Zepbound 2.5 MG/0.5ML solution auto-injector, INJECT 0.5 ML (2.5 MG) UNDER THE SKIN 1 (ONE) TIME PER WEEK., Disp: 2 mL, Rfl: 0 zolpidem (Ambien) 10 MG tablet, Take 1 tablet by mouth if needed at bedtime., Disp: , Rfl: documented in this encounter Miscellaneous Notes * Assessment & Plan Note - Joanne Chino NP - 03/09/2025 1:15 PM ESTAssociated Problem(s): DMII (diabetes mellitus, type 2) ([facility]) Orders: POCT Glucose documented in this encounter Plan of Treatment Upcoming Encounters Date Type Department Care Team (Late st Contact Info) Description 03/30/2025 1:00 PM EST Office Visit [facility] [address] [place] [address] Eduardo, Puja, OD [address] [place] [address] 04/02/2025 10:30 AM EST Clinical Support [facility] [address] [place] [address] Franca Murillo RN 07/20/2025 12:45 PM EDT Office Visit [facility] [address] [place] [address] Sri Lara [address] [place] [address] documented as of this encounter Goals Goal Patient Goal Type Associated Problems Recent Progress Patient-Stated? Author Help patients manage their type 2 diabetes Care Plan Help patients manage their type 2 diabetes No Franca Murillo RN Weekly blood pressure task Care Plan Weekly blood pressure task No Franca Murillo RN Help patients manage their type 2 diabetes Care Plan Help patients manage their type 2 diabetes No Franca Murillo RN Patient has chronic kidney disease Care Plan Patient has chronic kidney disease No Franca Murillo RN Weekly blood pressure task Care Plan Weekly blood pressure task No Franca Murillo RN Patient has chronic kidney disease Care Plan Patient has chronic kidney disease No Franca Murillo RN Weekly blood pressure task Care Plan Weekly blood pressure task No Juan Pablo Stacy Weekly blood pressure task Care Plan Weekly blood pressure task No Regis Juan Pablo Patient has chronic kidney disease Care Plan Patient has chronic kidney disease No Regis Juan Pablo Patient has chronic kidney disease Care Plan Patient has chronic kidney disease No Juan Pablo Stacy Weekly blood pressure task Care Plan Weekly blood pressure task No Regis Juan Pablo Weekly blood pressure task Care Plan Weekly blood pressure task No Regis Juan Pablo Patient has chronic kidney disease Care Plan Patient has chronic kidney disease No Regis Juan Pablo Patient has chronic kidney disease Care Plan Patient has chronic kidney disease No Juan Pablo Stacy Weekly blood pressure task Care Plan Weekly blood pressure task No Franca Murillo RN Weekly blood pressure task Care Plan Weekly blood pressure task No Franca Murillo, ALBERTO Patient has chronic kidney disease Care Plan Patient has chronic kidney disease No Franca Murillo RN Patient has chronic kidney disease Care Plan Patient has chronic kidney disease No Franca Murillo RN Weekly blood pressure task Care Plan Weekly blood pressure task No [place] Child Weekly blood pressure task Care Plan Weekly blood pressure task No [place] Child Patient has chronic kidney disease Care Plan Patient has chronic kidney disease No [place] Child Patient has chronic kidney disease Care Plan Patient has chronic kidney disease No [place] Child Weekly blood pressure task Care Plan Weekly blood pressure task No JanineuiSampson john Weekly blood pressure task Care Plan Weekly blood pressure task No SantjunioraguiSampson john Patient has chronic kidney disease Care Plan Patient has chronic kidney disease No JanineuiSampson john Patient has chronic kidney disease Care Plan Patient has chronic kidney disease No JanineuiSampson john Weekly blood pressure task Care Plan Weekly blood pressure task No Lolis Orona Weekly blood pressure task Care Plan Weekly blood pressure task No Lolis Orona Patient has chronic kidney disease Care Plan Patient has chronic kidney disease No Lolis Orona Patient has chronic kidney disease Care Plan Patient has chronic kidney disease No Lolis Oron[place] Weekly blood pressure task Care Plan Weekly blood pressure task No Franca Murillo RN Weekly blood pressure task Care Plan Weekly blood pressure task No Franca Murillo, ALBERTO Patient has chronic kidney disease Care Plan Patient has chronic kidney disease No Franca Murillo RN Patient has chronic kidney disease Care Plan Patient has chronic kidney disease No Franca Murillo RN Weekly blood pressure task Care Plan Weekly blood pressure task No Colon Polina Mcmullen Weekly blood pressure task Care Plan Weekly blood pressure task No Colon Benedict Polina Patient has chronic kidney disease Care Plan Patient has chronic kidney disease No Colon Benedict Polina Patient has chronic kidney disease Care Plan Patient has chronic kidney disease No Marino Mcmullen Polina Weekly blood pressure task Care Plan Weekly blood pressure task No Franca Murillo, ALBERTO Weekly blood pressure task Care Plan Weekly blood pressure task No LidiaFranca RN Patient has chronic kidney disease Care Plan Patient has chronic kidney disease No Franca Murillo RN Patient has chronic kidney disease Care Plan Patient has chronic kidney disease No Franca Murillo RN Weekly blood pressure task Care Plan Weekly blood pressure task No SantiagoaguiSampson john Weekly blood pressure task Care Plan Weekly blood pressure task No Santiagoaguil Sampson george Patient has chronic kidney disease Care Plan Patient has chronic kidney disease No JanineuiSampson john Patient has chronic kidney disease Care Plan Patient has chronic kidney disease No Mushtaqialeannaguil Sampson george Weekly blood pressure task Care Plan Weekly blood pressure task No Jimenez, Elmira, PharmD Weekly blood pressure task Care Plan Weekly blood pressure task No Jimenez Elmira, PharmD Patient has chronic kidney disease Care Plan Patient has chronic kidney disease No Jimenez Elmira, PharmD Patient has chronic kidney disease Care Plan Patient has chronic kidney disease No Jimenez Elmira, PharmD Weekly blood pressure task Care Plan Weekly blood pressure task No SandrineefJoanne SHEETMETAL TRADES WORKER Weekly blood pressure task Care Plan Weekly blood pressure task No SandrineefJoanne, SHEETMETAL TRADES WORKER Patient has chronic kidney disease Care Plan Patient has chronic kidney disease No SandrineefJoanne, SHEETMETAL TRADES WORKER Patient has chronic kidney disease Care Plan Patient has chronic kidney disease No Joanne Chino SHEETMETAL TRADES WORKER Weekly blood pressure task Care Plan Weekly blood pressure task No SandrineefKelleJoanne SHEETMETAL TRADES WORKER Weekly blood pressure task Care Plan Weekly blood pressure task No GraefKelleJoanne, SHEETMETAL TRADES WORKER Patient has chronic kidney disease Care Plan Patient has chronic kidney disease No SandrineefJoanne SHEETMETAL TRADES WORKER Patient has chronic kidney disease Care Plan Patient has chronic kidney disease No Joanne Chino NP Weekly blood pressure task Care Plan Weekly blood pressure task No Nichole Reddy, ALBERTO Weekly blood pressure task Care Plan Weekly blood pressure task No Nichole Reddy, ALBERTO Patient has chronic kidney disease Care Plan Patient has chronic kidney disease No Nichole Reddy, ALBERTO Patient has chronic kidney disease Care Plan Patient has chronic kidney disease No Nichole Reddy, ALBERTO documented as of this encounter Procedures Procedure Name Priority Date/Time Associated Diagnosis Comments COMPREHENSIVE METABOLIC PANEL Routine 03/09/2025 2:32 PM EST Hernia of abdominal wall CBC WITH AUTO DIFFERENTIAL Routine 03/09/2025 1:42 PM EST Hernia of abdominal wall Acute non-recurrent frontal sinusitis POCT GLUCOSE ([id number]) Routine 03/09/2025 1:06 PM EST Type 2 diabetes mellitus with hyperosmolarity without coma, without long-term current use of insulin (HCC) documented in this encounter Results * (ABNORMAL) Comprehensive Metabolic Panel (03/09/2025 2:32 PM EST) Sodium 142 135 - 145 mmol/L [facility] Potassium 3.1(L) 3.3 - 5.1 mmol/L [facility] Chloride 107 96 - 108 mmol/L [facility] Carbon Dioxide 27 22 - 29 mmol/L [facility] Anion Gap 11(L) 12 - 20 [facility] Urea Nitrogen (BUN) 5(L) 9 - 16 mg/dL [facility] Creatinine, Serum 0.53 0.5 - 1.4 mg/dL [facility] Estimated Glomerular Filt Rate >60 [facility] Comment:Chronic Kidney Disea se: Estimated GFR < 60 mL/min/[id number] Kidney Disease: Estimated GFR < 15 mL/min/1.73m2 Glucose 108 60 - 115 mg/dL [facility] Calcium 8.7 8.4 - 10.2 mg/dL [facility] Bilirubin, Total 0.3 0.0 - 1.0 mg/dL [facility] Aspartate Amino Transferase 51(H) 5 - 31 U/L [facility] Alanine Aminotransferase 56(H) 0 - 31 U/L [facility] Total Protein 7.1 6.5 - 8.0 g/dL [facility] Albumin Level 4.0 3.5 - 5.0 g/dL [facility] Alkaline Phosphatase 112 39 - 117 U/L [facility] Blood Venous blood specimen / Unknown 03/09/2025 2:32 PM EST 03/09/2025 3:57 PM EST us Joanne Chino SHEETMETAL TRADES WORKER LAB BLOOD ORDERABLES Final Resul t [facility] [address] [place], [place] [phone] * (ABNORMAL) CBC auto differential (03/09/2025 1:42 PM EST) White Blood Count 7.1 4.8 - 10.8 X10*3/uL [facility] Red Blood Count 3.84(L) 4.20 - 5.50 X10*6/uL [facility] Hemoglobin 10.4(L) 12.0 - 16.0 g/dl [facility] Hematocrit 34.1(L) 37.0 - 47.0 % [facility] Mean Corpuscular Volume 88.8 80.0 - 98.0 fL [facility] Mean Corpuscular Hemoglobin 27.1 27.0 - 33.0 pg [facility] Mean Corpuscular HGB Conc 30.5(L) 31.0 - 35.0 g/dl [facility] Red Cell Distribution Width 16.3(H) 11.0 - 16.0 % [facility] Platelet Count 330 160 - 400 X10*3/uL [facility] Mean Platelet Volume 10.1 9.4 - 12.3 fL [facility] Neutrophils Percent Auto 76.4(H) 45 - 73 % [facility] Imm Gran Pct Auto 0.3 0.0 - 0.4 % [facility] Lymphocytes Percent Auto 13.7(L) 20 - 40 % [facility] Monocytes Percent Auto 8.1 2 - 11 % [facility] Eosinophils Percent Auto 1.1 0 - 4 % [facility] Basophils Percent Auto 0.4 0 - 2 % [facility] NRBC Pct Auto 0.0 0.0 - 0.2 /100WBC [facility] Neutrophils Absolute Auto 5.4 2.0 - 8.3 x10*3/uL [facility] Imm Gran Abs Auto 0.02 0.00 - 0.03 X10*3/uL [facility] Lymphocytes Absolute Auto 1.0(L) 1.2 - 4.9 X10*3/uL [facility] Monocytes Absolute Auto 0.6 0.1 - 1.2 X10*3/uL [facility] Eosinophils Absolute Auto 0.1 0.0 - 0.4 X10*3/uL [facility] Basophils Absolute Auto 0.0 0.0 - 0.2 X10*3/uL [facility] NRBC Abs Auto 0.000 0.0 - 0.012 X10*3/uL [facility] Blood Venous blood specimen / Unknown 03/09/2025 1:42 PM EST 03/09/2025 3:57 PM EST Joanne Chino NP LAB BLOOD ORDERABLES Final Resul t [facility] [address] [place] [phone] * POCT Glucose (03/09/2025 1:06 PM EST) [facility] Glucose Blood, POC 121 60 - 200 mg/dL [employer] Media Lot # [id number] Lot# Expiration Date [id number] Blood Capillary blood specimen / Unknown 03/09/2025 1:06 PM EST Joanne Chino NP POINT OF CARE TEST ENTER/EDIT OR DERABLES Final Result documented in this encounter Visit Diagnoses Diagnosis Type 2 diabetes mellitus with hyperosmolarity without coma, without long-term current use of insulin (HCC)- Primary Hernia of abdominal wall Unspecified ventral hernia without mention of obstruction or gangrene Acute non-recurrent frontal sinusitis documented in this encounter Additional Health Concerns Active Problems Noted Date Diagnosed Date Help patients manage their type 2 diabetes 02/06 Weekly blood pressure task 02/06/2025 Help patients manage their type 2 diabetes 02/06 Patient has chronic kidney disease 02/06/2025 Weekly blood pressure task 02/06/2025 Patient has chronic kidney disease 02/06/2025 Weekly blood pressure task 02/10/2025 Weekly blood pressure task 02/10/2025 Patient has chronic kidney disease 02/10/2025 Patient has chronic kidney disease 02/10/2025 Weekly blood pressure task 02/11/2025 Weekly blood pressure task 02/11/2025 Patient has chronic kidney disease 02/11/2025 Patient has chronic kidney disease 02/11/2025 Weekly blood pressure task 02/23/2025 Weekly blood pressure task 02/23/2025 Patient has chronic kidney disease 02/23/2025 Patient has chronic kidney disease 02/23/2025 Weekly blood pressure task 02/23/2025 Weekly blood pressure task 02/23/2025 Patient has chronic kidney disease 02/23/2025 Patient has chronic kidney disease 02/23/2025 Weekly blood pressure task 02/24/2025 Weekly blood pressure task 02/24/2025 Patient has chronic kidney disease 02/24/2025 Patient has chronic kidney disease 02/24/2025 Weekly blood pressure task 02/24/2025 Weekly blood pressure task 02/24/2025 Patient has chronic kidney disease 02/24/2025 Patient has chronic kidney disease 02/24/2025 Weekly blood pressure task 02/26/2025 Weekly blood pressure task 02/26/2025 Patient has chronic kidney disease 02/26/2025 Patient has chronic kidney disease 02/26/2025 Weekly blood pressure task 02/26/2025 Weekly blood pressure task 02/26/2025 Patient has chronic kidney disease 02/26/2025 Patient has chronic kidney disease 02/26/2025 Weekly blood pressure task 02/26/2025 Weekly blood pressure task 02/26/2025 Patient has chronic kidney disease 02/26/2025 Patient has chronic kidney disease 02/26/2025 Weekly blood pressure task 02/26/2025 Weekly blood pressure task 02/26/2025 Patient has chronic kidney disease 02/26/2025 Patient has chronic kidney disease 02/26/2025 Weekly blood pressure task 03/05/2025 Weekly blood pressure task 03/05/2025 Patient has chronic kidney disease 03/05/2025 Patient has chronic kidney disease 03/05/2025 Weekly blood pressure task 03/09/2025 Weekly blood pressure task 03/09/2025 Patient has chronic kidney disease 03/09/2025 Patient has chronic kidney disease 03/09/2025 Weekly blood pressure task 03/09/2025 Weekly blood pressure task 03/09/2025 Patient has chronic kidney disease 03/09/2025 Patient has chronic kidney disease 03/09/2025 Weekly blood pressure task 03/09/2025 Weekly blood pressure task 03/09/2025 Patient has chronic kidney disease 03/09/2025 Patient has chronic kidney disease 03/09/2025 Assessment Noted Time PHQ-9 Depression Total Score: 025 1:02 PM EDT documented as of this encounter Care Teams Marketing Operations Assistant Relationship Specialty Start Date End Date Joanne Chino NP [address] [place] [phone] PCP - General Family Medicine 08/31/23 documented as of this encounter
[2025-03-09 16:01] LABS: MANUAL DIFF FLAG NO
[2025-03-09 16:08] LABS: Hematocrit 34.1 % (37.0-47.0); Hemoglobin 10.4 g/dl (12.0-16.0); Imm Gran Abs Auto 0.02 X10*3/uL (0.00-0.03); Imm Gran Pct Auto 0.3 % (0.0-0.4); Lymphocytes Absolute Auto 1.0 X10*3/uL (1.2-4.9); Mean Corpuscular HGB Conc 30.5 g/dl (31.0-35.0); Mean Corpuscular Hemoglobin 27.1 pg (27.0-33.0); Mean Corpuscular Volume 88.8 fL (80.0-98.0); NRBC Abs Auto 0.000 X10*3/uL (0.0-0.012); NRBC Pct Auto 0.0 /100WBC (0.0-0.2); Platelet Count 330 X10*3/uL (160-400); Red Blood Count 3.84 X10*6/uL (4.20-5.50); White Blood Count 7.1 X10*3/uL (4.8-10.8)
[2025-03-09 16:23] LABS: Alanine Aminotransferase 56 U/L (0-31); Albumin Level 4.0 g/dL (3.5-5.0); Alkaline Phosphatase 112 U/L (39-117); Anion Gap 11 (12-20); Aspartate Amino Transferase 51 U/L (5-31); Blood Urea Nitrogen 5 mg/dL (9-16); Calcium 8.7 mg/dL (8.4-10.2); Carbon Dioxide 27 mmol/L (22-29); Chloride 107 mmol/L (96-108); Estimated Glomerular Filt Rate > 60; Potassium 3.1 mmol/L (3.3-5.1); Sodium 142 mmol/L (135-145); Total Protein 7.1 g/dL (6.5-8.0)
--- OUTSIDE RECORDS SUMMARY | 2025-03-09 16:58 | XMS_ITS | Encounter Summary ---
Author Organization [employer] Address [address] [facility] 7[address] [place] [address] Care Team Providers Care Caterpillar Mechanic Name Role Phone Joanne Chino NP Primary Care Provider [phone] Reason for Referral * Consultation (Routine) - Closed Specialty Diagnoses / Procedures Referred By Manuel franco Referred To Contact Sleep Medicine Diagnoses Chronic fatigue Joanne Chino NP [address] [place] [address] Phone: tel: fax: Sleep Medicine Service [facility] [address] [facility], [address] [place] [address] Phone: tel: fax: Referral ID Status Reason Start Date Expiration Date V isits Requested Visits Authorized [id number] Closed Specialty Services Required 08/01/2024 08/01/2025 1 1 Encounter Details Date Type Department Care Team (Late st Contact Info) Description 08/01/2024 Orders Only [facility] [address] [place] [address] Joanne Chino NP [address] [place] [address] Chronic fatigue (Primary Dx) Social History Tobacco [...] t he electric, gas, oil or water [employer] threatened to shut off services in your [...] Description 03/30/2025 1:00 PM EST Office Visit [facility] [address] [place] [address] Puja Clark, OD [address] [place] [address] 04/02/2025 10:30 AM EST Clinical Support [facility] [address] [place] [address] Franca Murillo RN 07/20/2025 12:45 PM EDT Office Visit [facility] [address] [place] [address] Sri Lara [address] [place] [address] Scheduled Referrals Name Type Priority Associated Diagnoses [...] AM EDT) Hemoglobin A1c 6.1(H) <6.0 % [facility] Comment:Hemoglobin A1C Refer ence Range Adults: 4.8 - 6.0 % Non diabetic: < 6.0 % Goal: < 7.0 %Additional Action Suggested: > 8.0 %Note: Hemoglobin A1c results are invalid for patients with abnormal amounts of HbF. Blood transfusions may impact the HbA1c concentration in the patient sample. Estimated Average Glucose 128 mg/dL [facility] Comment:eAG = Estimated ave rage glucose which is %A1C expressed asaverage glucose, using the formula of the J3D-CjvhcyjJkvevny Glucose study (ADAG), Diabetes Care, Vol.31,#8,Oct. 2007 Blood Venous blood specimen / Unknown 08/04/2024 9:04 AM EDT 08/04/2024 11:03 AM EDT Joanne Chino PLANER MILL GRADER LAB BLOOD ORDERABLES Final Resul t Performing Organization Address City/[facility]/ZIP Co de Phone Number [facility] [address] [place] [address] [phone] * (ABNORMAL) Comprehensive Metabolic Panel (08/04/2024 9:04 AM EDT) Sodium 137 135 - 145 mmol/L [facility] Potassium 3.3 3.3 - 5.1 mmol/L [facility] Chloride 106 96 - 108 mmol/L [facility] Carbon Dioxide 22 22 - 29 mmol/L [facility] Anion Gap 12 12 - 20 [facility] Urea Nitrogen (BUN) 9 9 - 16 mg/dL [facility] Creatinine, Serum 0.71 0.5 - 1.4 mg/dL [facility] Estimated Glomerular Filt Rate >60 [facility] Comment:Chronic Kidney Disea se: Estimated GFR < 60 mL/min/[id number] Kidney Disease: Estimated GFR < 15 mL/min/1.73m2 Glucose 168(H) 60 - 115 mg/dL [facility] Calcium 8.5 8.4 - 10.2 mg/dL [facility] Bilirubin, Total 0.3 0.0 - 1.0 mg/dL [facility] Aspartate Amino Transferase 40(H) 5 - 31 U/L [facility] Alanine Aminotransferase 48(H) 0 - 31 U/L [facility] Total Protein 7.3 6.5 - 8.0 g/dL [facility] Albumin Level 3.9 3.5 - 5.0 g/dL [facility] Alkaline Phosphatase 90 39 - 117 U/L [facility] Blood Venous blood specimen / Unknown 08/04/2024 9:04 AM EDT 08/04/2024 11:03 AM EDT us Joanne Chino PLANER MILL GRADER LAB BLOOD ORDERABLES Final Resul t Performing Organization Address City/[facility]/ZIP Co de Phone Number [facility] [address] [place] [phone] * TSH W/Reflex to FT4 (08/04/2024 9:04 AM EDT) TSH reflex Free T4 2.24 0.32 - 4.0 uIU/mL [facility] Blood Venous blood specimen / Unknown 08/04/2024 9:04 AM EDT 08/04/2024 11:03 AM EDT us Joanne Chino PLANER MILL GRADER LAB BLOOD ORDERABLES Final Resul t [facility] [address] [place] [phone] * (ABNORMAL) CBC auto differential (08/04/2024 9:01 AM EDT) Pathologist [facility] White Blood Count 8.6 4.8 - 10.8 X10*3/uL [facility] Red Blood Count 4.52 4.20 - 5.50 X10*6/uL [facility] Hemoglobin 12.3 12.0 - 16.0 g/dl [facility] Hematocrit 39.6 37.0 - 47.0 % [facility] Mean Corpuscular Volume 87.6 80.0 - 98.0 fL [facility] Mean Corpuscular Hemoglobin 27.2 27.0 - 33.0 pg [facility] Mean Corpuscular HGB Conc 31.1 31.0 - 35.0 g/dl [facility] Red Cell Distribution Width 16.7(H) 11.0 - 16.0 % [facility] Platelet Count 322 160 - 400 X10*3/uL [facility] Mean Platelet Volume 9.8 9.4 - 12.3 fL [facility] Neutrophils Percent Auto 67.4 45 - 73 % [facility] Imm Gran Pct Auto 0.6(H) 0.0 - 0.4 % [facility] Lymphocytes Percent Auto 26.1 20 - 40 % [facility] Monocytes Percent Auto 4.9 2 - 11 % [facility] Eosinophils Percent Auto 0.5 0 - 4 % [facility] Basophils Percent Auto 0.5 0 - 2 % [facility] NRBC Pct Auto 0.0 0.0 - 0.2 /100WBC [facility] Neutrophils Absolute Auto 5.8 2.0 - 8.3 x10*3/uL [facility] Imm Gran Abs Auto 0.05(H) 0.00 - 0.03 X10*3/uL [facility] Lymphocytes Absolute Auto 2.3 1.2 - 4.9 X10*3/uL [facility] Monocytes Absolute Auto 0.4 0.1 - 1.2 X10*3/uL [facility] Eosinophils Absolute Auto 0.0 0.0 - 0.4 X10*3/uL [facility] Basophils Absolute Auto 0.0 0.0 - 0.2 X10*3/uL [facility] NRBC Abs Auto 0.000 0.0 - 0.012 X10*3/uL [facility] Blood Venous blood specimen / Unknown 08/04/2024 9:01 AM EDT 08/04/2024 11:03 AM EDT us Joanne Chino PLANER MILL GRADER LAB BLOOD ORDERABLES Final Resul t [facility] [address] [place] [phone] [phone] documented in this encounter Visit Diagnoses Diagnosis Chronic fatigue- Primary Other malaise and fatigue documented in this encounter Additional Health Concerns Assessment Noted Time PHQ-9 Depression Total Score: 0 08/31/19 24 2:53 PM EDT documented as of this encounter Care Teams Caterpillar Mechanic Relationship Specialty Start Date End Date Joanne Chino NP [address] [place] [address] PCP - General Family Medicine 08/31/23 documented as of this encounter
--- OUTSIDE RECORDS SUMMARY | 2025-03-09 16:59 | XMS_ITS | Encounter Summary ---
Author Organization [employer] Address [address] [facility] 7t [place] [address] Care Team Providers Care Model Maker Fiberglass Name Role Phone Joanne Chino NP Primary Care Provider [phone] Reason for Visit * Reason Comments Med Refill Encounter Details Date Type Department Care Team ([facility] st Contact Info) Description 11/14/2023 Refill [facility] [address] [place], [place] [phone] Joanne Chino NP [address] [place], [place] [phone] Rheumatoid arthritis involving multiple sites, unspecified whether [...] Description 03/30/2025 1:00 PM EST Office Visit [facility] [address] [place] [address] Eduardo, Puja, OD [address] [place] [address] 04/02/2025 10:30 AM EST Clinical Support [facility] [address] [place] [address] Franca Murillo RN 07/20/2025 12:45 PM EDT Office Visit [facility] [address] [place] [address] Sri Lara [address] [place] [address] documented as of this encounter Visit Diagnoses Diagnosis Rheumatoid arthritis involving multiple sites, unspecified whether rheumatoid factor present (CMS/HCC) ([facility]) Chronic pain syndrome documented in this encounter Additional Health Concerns Assessment Noted Time PHQ-9 Depression Total Score: 0 08/31/19 24 2:53 PM EDT documented as of this encounter Care Teams Model Maker Fiberglass Relationship Specialty Start Date End Date Joanne Chino NP [address] [place] [address] PCP - General Family Medicine 08/31/23 documented as of this encounter
--- OUTSIDE RECORDS SUMMARY | 2025-03-09 16:59 | XMS_ITS | Encounter Summary ---
Author Organization [employer] Address [address] [facility] 7t [place] [address] Care Team Providers Care Change Management Lead Name Role Phone Joanne Chino MARY Primary Care Provider [phone] Reason for Visit * Reason Comments Med Refill Encounter Details Date Type Department Care Team (Late st Contact Info) Description 10/14/2023 Refill [facility] [address] [place], [place] [phone] Ryanne Dao FNP [address] [place], [place] [phone] Chronic pain syndrome; Rheumatoid arthritis involving multiple [...] Description 03/30/2025 1:00 PM EST Office Visit [facility] [address] [place] [address] EduardoPuja moseley, OD [address] [place] [address] 04/02/2025 10:30 AM EST Clinical Support [facility] [address] [place] [address] Franca Murillo RN 07/20/2025 12:45 PM EDT Office Visit [facility] [address] [place] [address] Sri Lara [address] [place] [address] documented as of this encounter Visit Diagnoses Diagnosis Chronic pain syndrome Rheumatoid arthritis involving multiple sites with positive rheumatoid factor (CMS/HCC) (HCC) documented in this encounter Additional Health Concerns Assessment Noted Time PHQ-9 Depression Total Score: 0 08/31/19 24 2:53 PM EDT documented as of this encounter Care Teams Change Management Lead Relationship Specialty Start Date End Date Joanne Chino NP [address] [place] [address] PCP - General Family Medicine 08/31/23 documented as of this encounter
--- OUTSIDE RECORDS SUMMARY | 2025-03-09 16:59 | XMS_ITS | Encounter Summary ---
Author Organization [email or web address] Address [address] [facility] [address]t [place] [address] Care Team Providers Care Livestock Handler Name Role Phone Joanne Chino NP Primary Care Provider [phone] Reason for Referral * Medications - Closed Specialty Diagnoses / Procedures Referred By Manuel franco Referred To Contact Diagnoses Pain Joanne Chino NP [address] [place] [address] Phone: tel: fax: Referral ID Status Reason Start Date Expiration Date Visits Re quested Visits Authorized [id number] Closed 1 1 Reason for Visit * Reason Onset Date Comments Medication Question 02/26/2025 Encounter Details Date Type Department Care Team ([facility] st Contact Info) Description 02/26/2025 Telephone [facility] [address] [place], [place] [phone] Joanne Chino NP [address] [place] [address] Medication Question Social History Tobacco Use Types Packs/Day [...] encounter Miscellaneous Notes * Telephone Encounter - Joanne Chino NP - 03/09/2025 12:17 PM EST Prescription for tylenol and zofran sent * Telephone Encounter - Sampson Albrecht - 02/26/2025 2:14 PM EST Tc from pt requesting new script for medication to help with vomiting and also acetaminophen Contact pt at [phone] documented in this encounter Plan of Treatment Upcoming Encounters Date Type Department Care Team (Late st Contact Info) Description 03/30/2025 1:00 PM EST Office Visit [facility] [address] [place] [address] Puja Clark, OD [address] [place] [address] 04/02/2025 10:30 AM EST Clinical Support [facility] [address] [place] [address] Franca Murillo RN 07/20/2025 12:45 PM EDT Office Visit [facility] [address] [place] [address] Marco, Sri [address] [place] [address] documented as of this encounter Goals Goal [...] Plan Patient has chronic kidney disease No Stacy, Juan Pablo Patient has chronic kidney disease Care Plan Patient has chronic kidney disease No Stacy Juan Pablo Weekly blood pressure task Care Plan Weekly blood pressure task No Stacy, Juan Pablo Weekly blood pressure task Care Plan Weekly blood pressure task No Stacy, Juan Pablo Patient has chronic kidney disease Care Plan Patient has chronic kidney disease No Stacy, Juan Pablo Patient has chronic kidney disease Care Plan Patient has chronic kidney disease No Juan Pablo Stacy Weekly blood pressure task Care Plan Weekly blood pressure task No Franca Murillo RN Weekly blood pressure task Care Plan Weekly blood pressure task No Franca Murillo RN Patient has chronic kidney disease Care Plan Patient has chronic kidney disease No Franca Murillo, ALBERTO Patient has chronic [...] blood pressure task No Santiagoaguil Sampson george Weekly blood pressure task Care Plan Weekly blood pressure task No Santiagoaguil Rubi georgeeliacara Patient has chronic kidney disease Care Plan Patient has chronic kidney disease No Santiagoaguil Rubi georgeeliacara Patient has chronic kidney disease Care Plan Patient has chronic kidney disease No Santnallelygoaguil doris Joeliacara Weekly blood pressure task Care Plan Weekly [...] Patient has chronic kidney disease No Franca Murillo, ALBERTO Patient has chronic kidney disease Care Plan Patient has chronic kidney disease No Franca Murillo RN Weekly blood pressure task Care Plan Weekly blood pressure task No Polina Dumont Weekly blood pressure task Care Plan Weekly blood pressure task No Colon Mcmullen, Polina Patient has chronic kidney disease Care Plan Patient has chronic kidney disease No Colon Mcmullen, Polina Patient has chronic kidney disease Care Plan Patient has chronic kidney disease No Colon Benedict Polina Weekly blood pressure task Care Plan Weekly blood pressure task No Franca Murillo, ALBERTO Weekly blood pressure task Care Plan Weekly blood pressure task No Franca Murillo, ALBERTO Patient has chronic kidney disease Care Plan Patient has chronic kidney disease No Franca Murillo, ALBERTO Patient has chronic kidney disease Care Plan Patient has chronic kidney disease No Franca Murillo RN Weekly blood pressure task Care Plan Weekly blood pressure task No Sampson Jin Weekly blood pressure task Care Plan Weekly blood pressure task No Sampson Jin Patient has chronic kidney disease Care Plan Patient has chronic kidney disease No Sampson Jin Patient has chronic kidney disease Care Plan Patient has chronic kidney disease No Sampson Jin documented as of this encounter Visit Diagnoses Diagnosis Pain- Primary Generalized pain documented in this encounter Additional Health Concerns [...] 02/26/2025 Patient has chronic kidney disease 02/26/2025 Assessment Noted Time PHQ-9 Depression Total Score: 22 025 1:02 PM EDT documented as of this encounter Care Teams Livestock Handler Relationship Specialty Start Date End Date Joanne Chino NP [address] [place] [phone] PCP - General Family Medicine 08/31/23 documented as of this encounter
--- OUTSIDE RECORDS SUMMARY | 2025-03-09 16:59 | XMS_ITS | Encounter Summary ---
Author Organization [employer] Address 75 [facility] 7t [place] [address] Care Team Providers Care Dog Handler Or Trainer Name Role Phone Ryanne DaoP Primary Care Provider [phone] Joanne Chino NP Primary Care Provider [phone] Encounter Details Date Type Department Care Team (Late st Contact Info) Description 02/27/2022 Orders Only [facility] MEDICINE [address] [place] [address] Ryanne Dao FNP [address] [place] [address] Rheumatoid arthritis involving multiple sites, unspecified whether [...] Description 03/30/2025 1:00 PM EST Office Visit [facility] OPTOMETRY [address] [place], [place] [phone] Puja Clark, OD [address] [place] [address] 04/02/2025 10:30 AM EST Clinical Support [facility] MEDICINE [address] [place] [address] Franca Murillo RN 07/20/2025 12:45 PM EDT Office Visit [facility] ADULT DENTAL [address] [place] [address] Sri Lara [address] [place] [address] documented as of this encounter Procedures Procedure Name Priority Date/Time Associated Diagnosis Comments ACTH STIMULATION, 3 SPECIMENS Routine 06/23/2022 9:00 AM EDT Rheumatoid arthritis involving multiple sites, unspecified whether rheumatoid factor present ([facility]) GLUCOSE, RANDOM Routine 05/19/2022 7:22 AM EST Rheumatoid arthritis involving multiple sites, unspecified whether rheumatoid factor present ([facility]) documented in this encounter Results * (ABNORMAL) ACTH Stimulation, 3 Specimens (06/23/2022 9:00 AM EDT) Time 1 0900 [facility] Cortisol Baseline 5.1 mcg/dL [facility] Cortisol 30 Minute Time 0930 [facility] Cortisol 30 Minute 13.8(A) mcg/dL [facility] Cortisol 60 Minute Time 1000 [facility] Cortisol 60 Minute 8.6(A) mcg/dL [facility] ACTH Stim Comment See Below [facility] Comment:Normal Response: Any value > or = 20.0The work by Ronit et al (J Clin Endo Soc 5: 1-11) suggests that a cortisol response of > 14.6 mcg/dLat 30 minutes following stimulation with ACTH beemployed as criteria to establish adrenal sufficiency.THIS TEST WAS PERFORMED AT:[employer] [place] [id number] SAWYER MD Med (ACTH) Time 0901 [facility] 06/23/2022 9:0 0 AM EDT 06/23/2022 9:03 AM EDT [facility] External Provider LAB BLO OD ORDERABLES Final Result Performing Organization Address [facility]/ZIP Co de Phone Number [facility] [address] [place] [address] [phone] * Glucose, Random (05/19/2022 7:22 AM EST) Glucose 110 60 - 115 mg/dL [facility] 05/19/2022 7:22 AM EST 05/19/2022 7:22 AM EST [facility] External Provider LAB BLO OD ORDERABLES Final Result Performing Organization Address [facility] Co de Phone Number [facility] [address] [place] [phone] documented in this encounter Visit Diagnoses Diagnosis Rheumatoid arthritis involving multiple sites, unspecified whether rheumatoid factor present (CMS/HCC) (HCC) Chronic pain syndrome documented in this encounter Care Teams Dog Handler Or Trainer Relationship Specialty Start Date End Date Ryanne Dao FNP [address] [place] [address] PCP - General Family Medicine 02/02/22 08/30/23 Joanne Chino NP [address] [place] [address] PCP - General Family Medicine 08/31/23 documented as of this encounter
--- OUTSIDE RECORDS SUMMARY | 2025-03-09 16:59 | XMS_ITS | Encounter Summary ---
Author Organization [employer] Address 75 [facility] 7t [place] [address] Care Team Providers Care Lead Investigator Name Role Phone Ryanne DaoP Primary Care Provider [phone] Joanne Chino NP Primary Care Provider [phone] Reason for Visit * Reason Onset Date Comments Med Refill 03/28/2022 Encounter Details Date Type Department Care Team (Late st Contact Info) Description 03/28/2022 Telephone [facility] MEDICINE [address] [place], [place] [phone] Ryanne Dao FNP [address] [place] [address] Med Refill Social History Tobacco Use Types [...] Description 03/30/2025 1:00 PM EST Office Visit [facility] OPTOMETRY [address] [place] [address] Eduardo, Puja, OD [address] [place] [address] 04/02/2025 10:30 AM EST Clinical Support [facility] MEDICINE [address] [place] [address] Franca Murillo, ALBERTO 07/20/2025 12:45 PM EDT Office Visit [facility] ADULT DENTAL [address] [place] [address] Sri Lara [address] [place] [address] documented as of this encounter Visit Diagnoses Not on filedocumented in this encounter Care Teams Lead Investigator Relationship Specialty Start Date End Date Ryanne Dao FNP [address] [place] [address] PCP - General Family Medicine 02/02/22 08/30/23 Joanne Chino NP [address] [place] [address] PCP - General Family Medicine 08/31/23 documented as of this encounter
--- OUTSIDE RECORDS SUMMARY | 2025-03-09 16:59 | XMS_ITS | Encounter Summary ---
Author Organization [email or web address] Address 75 [facility] 7t [place] [address] Care Team Providers Care Office Specialist Name Role Phone Joanne Chino NP Primary Care Provider [phone] Encounter Details Date Type Department Care Team (Late st Contact Info) Description 03/09/2025 Orders Only [facility] MEDICINE [address] [place], [place] [phone] Joanne Chino NP [address] [place], [place] [phone] Other constipation (Primary Dx) Social History Tobacco Use Types [...] AM EDT documented as of this encounter Progress Notes * Joanne Chino NP - 03/09/2025 1:37 PM EST Please call dr forman for surgical follow up pt is willing to go but will not schedule documented in this encounter Plan of Treatment Upcoming Encounters Date Type Department Care Team (Late st Contact Info) Description 03/30/2025 1:00 PM EST Office Visit [facility] OPTOMETRY [address] [place] [address] Puja Clark, OD [address] [place] [address] 04/02/2025 10:30 AM EST Clinical Support [facility] MEDICINE [address] [place] [address] Franca Murillo RN 07/20/2025 12:45 PM EDT Office Visit [facility] ADULT DENTAL [address] [place] [address] Sri Lara [address] [place] [address] documented as of this encounter Goals Goal [...] chronic kidney disease No Stacy, Juan Pablo Weekly blood pressure [...] chronic kidney disease No Stacy, Juan Pablo Weekly blood pressure [...] has chronic kidney disease No Sampson Jin Weekly blood pressure task [...] chronic kidney disease No Franca Murillo, ALBERTO Weekly blood pressure task Care Plan Weekly blood pressure task No Colon Polina Mcmullen Weekly blood pressure task Care Plan Weekly blood pressure task No Marino Mcmullen Polina Patient has chronic kidney disease Care Plan Patient has chronic kidney disease No Marino Mcmullen Polina Patient has chronic kidney disease Care [...] has chronic kidney disease No Sampson Jin Weekly blood pressure task Care Plan Weekly blood pressure task No Elmira Gaona, Qian Weekly blood pressure task Care Plan Weekly blood pressure task No Elmira Gaona, PharmD Patient has chronic kidney disease Care Plan Patient has chronic kidney disease No Elmira Gaona, PharmD Patient has chronic kidney disease Care Plan Patient has chronic kidney disease No Elmira Gaona, PharmD Weekly blood pressure task Care Plan Weekly blood pressure task No Joanne Chino NP Weekly blood pressure task Care Plan Weekly blood pressure task No Joanne Chino NP Patient has chronic kidney disease Care Plan Patient has chronic kidney disease No Joanne Chino NP Patient has chronic kidney disease Care Plan Patient has chronic kidney disease No Joanne Chino NP Weekly blood pressure task Care Plan Weekly blood pressure task No Joanne Chino NP Weekly blood pressure task Care Plan Weekly blood pressure task No Joanne Chino NP Patient has chronic kidney disease Care Plan Patient has chronic kidney disease No Joanne Chino NP Patient has chronic kidney disease Care Plan Patient has chronic kidney disease No Joanne Chino NP Weekly blood pressure task Care Plan Weekly blood pressure task No Nichole Reddy RN Weekly blood pressure task Care Plan Weekly blood pressure task No Nichole Reddy, ALBERTO Patient has chronic kidney disease Care Plan Patient has chronic kidney disease No Nichole Reddy RN Patient has chronic kidney disease Care Plan Patient has chronic kidney disease No Nichole Reddy RN documented as of this encounter Visit Diagnoses Diagnosis Other constipation- Primary documented in this encounter Additional Health [...] documented as of this encounter Care Teams Office Specialist Relationship Specialty Start Date End Date Joanne Chino NP [address] [place] [address] PCP - General Family Medicine 08/31/23 documented as of this encounter
--- OUTSIDE RECORDS SUMMARY | 2025-03-09 16:59 | XMS_ITS | Encounter Summary ---
Author Organization [employer] Address 75 [facility] 7t [place] [address] Care Team Providers Care Area Plant Manager Name Role Phone Joanne Chino NP Primary Care Provider [phone] Reason for Visit * Reason Comments Med Refill Encounter Details Date Type Department Care Team ([facility] st Contact Info) Description 07/24/2024 Refill [facility] MEDICINE [address] [place], [place] [phone] Joanne Chino NP [address] [place], [place] [phone] Chronic pain syndrome Social History Tobacco Use [...] Description 03/30/2025 1:00 PM EST Office Visit [facility] OPTOMETRY [address] [place] [address] EduardoPuja moseley, OD [address] [place] [address] 04/02/2025 10:30 AM EST Clinical Support [facility] MEDICINE [address] [place] [address] Franca Murillo RN 07/20/2025 12:45 PM EDT Office Visit [facility] ADULT DENTAL [address] [place] [address] Sri Lara [address] [place] [address] documented as of this encounter Visit Diagnoses Diagnosis Chronic pain syndrome documented in this encounter Additional Health Concerns Assessment Noted Time PHQ-9 Depression Total Score: 0 08/31/19 24 2:53 PM EDT documented as of this encounter Care Teams Area Plant Manager Relationship Specialty Start Date End Date Joanne Chino NP [address] [place] [address] PCP - General Family Medicine 08/31/23 documented as of this encounter
--- OUTSIDE RECORDS SUMMARY | 2025-03-09 16:59 | XMS_ITS | Encounter Summary ---
Author Organization [employer] Address 75 [facility] 7t [place] [address] Care Team Providers Care Bureau Chief Name Role Phone Joanne Chino NP Primary Care Provider [phone] Reason for Visit * Reason Comments Med Refill Encounter Details Date Type Department Care Team ([facility] st Contact Info) Description 11/25/2024 Refill [facility] MEDICINE [address] [place], [place] [phone] Joanne Chino NP [address] [place], [place] [phone] Social History Tobacco Use Types Packs/Day Years [...] Description 03/30/2025 1:00 PM EST Office Visit [facility] OPTOMETRY [address] [place] [address] Eduardo, Puja, OD [address] [place] [address] 04/02/2025 10:30 AM EST Clinical Support [facility] MEDICINE [address] [place] [address] Franca Murillo RN 07/20/2025 12:45 PM EDT Office Visit [facility] ADULT DENTAL [address] [place] [address] Sri Lara [address] [place] [address] documented as of this encounter Visit Diagnoses Not on filedocumented in this encounter Additional Health Concerns Assessment Noted Time PHQ-9 Depression Total Score: 22 025 1:02 PM EDT documented as of this encounter Care Teams Bureau Chief Relationship Specialty Start Date End Date Joanne Chino NP [address] [place] [address] PCP - General Family Medicine 08/31/23 documented as of this encounter
--- OUTSIDE RECORDS SUMMARY | 2025-03-09 16:59 | XMS_ITS | Encounter Summary ---
Author Organization [employer] Address 75 [facility] 7t [place] [address] Care Team Providers Care Wage And Salary Specialist Name Role Phone Ryanne DaoP Primary Care Provider [phone] Joanne Chino NP Primary Care Provider [phone] Reason for Visit * Reason Onset Date Comments Reschedule 05/23/2023 Encounter Details Date Type Department Care Team (Late st Contact Info) Description 05/23/[address] [facility] MEDICINE [address] [place], [place] [phone] Ryanne Dao FNP [address] [place] [address] Reschedule Social History Tobacco Use Types Packs/Day [...] problems with any of the following? Mold;Lead Hostetter or Pipes 05/18/2023 Food Insecurity Answer Date [...] AM EST Tc from pt requesting r/s [employer] appt. Pt sick. documented in this encounter Plan of Treatment Upcoming Encounters Date Type Department Care Team (Late st Contact Info) Description 03/30/2025 1:00 PM EST Office Visit [facility] OPTOMETRY [address] [place] [address] Eduardo, Puja, OD [address] [place] [address] 04/02/2025 10:30 AM EST Clinical Support [facility] MEDICINE [address] [place] [address] Franca Murillo, ALBERTO 07/20/2025 12:45 PM EDT Office Visit [facility] ADULT DENTAL [address] [place] [address] Sri Lara [address] [place] [address] documented as of this encounter Visit Diagnoses Not on filedocumented in this encounter Additional Health Concerns Assessment Noted Time PHQ-9 Depression Total Score: 24 024 2:10 PM EST documented as of this encounter Care Teams Wage And Salary Specialist Relationship Specialty Start Date End Date Ryanne Dao FNP [address] [place] [address] PCP - General Family Medicine 02/02/22 08/30/23 Joanne Chino NP [address] [place] [address] PCP - General Family Medicine 08/31/23 documented as of this encounter
--- OUTSIDE RECORDS SUMMARY | 2025-03-09 16:59 | XMS_ITS | Encounter Summary ---
Author Organization [employer] Address 75 [facility] 7t [place] [address] Care Team Providers Care Manager Golf Name Role Phone Joanne Chino NP Primary Care Provider [phone] Reason for Visit * Reason Comments Med Refill Encounter Details Date Type Department Care Team ([facility] st Contact Info) Description 12/22/2024 Refill [facility] MEDICINE [address] [place], [place] [phone] Joanne Chino NP [address] [place], [place] [phone] Social History Tobacco Use Types Packs/Day Years [...] Description 03/30/2025 1:00 PM EST Office Visit [facility] OPTOMETRY [address] [place] [address] Eduardo, Puja, OD [address] [place] [address] 04/02/2025 10:30 AM EST Clinical Support [facility] MEDICINE [address] [place] [address] Franca Murillo RN 07/20/2025 12:45 PM EDT Office Visit [facility] ADULT DENTAL [address] [place] [address] Sri Lara [address] [place] [address] documented as of this encounter Visit Diagnoses Not on filedocumented in this encounter Additional Health Concerns Assessment Noted Time PHQ-9 Depression Total Score: 22 025 1:02 PM EDT documented as of this encounter Care Teams Manager Golf Relationship Specialty Start Date End Date Joanne Chino NP [address] [place] [address] PCP - General Family Medicine 08/31/23 documented as of this encounter
--- OUTSIDE RECORDS SUMMARY | 2025-03-09 16:59 | XMS_ITS | Encounter Summary ---
Author Organization [employer] Address 75 [facility] 7t [place] [address] Care Team Providers Care City Supervisor Name Role Phone Joanne Chino NP Primary Care Provider [phone] Reason for Visit * Reason Onset Date Comments Hospital Follow-up 02/24/2025 Encounter Details Date Type Department Care Team ([facility] st Contact Info) Description 02/24/2025 Telephone [facility] MEDICINE [address] [place], [place] [phone] Joanne Chino NP [address] [place] [address] Hospital Follow-up Social History Tobacco Use Types Packs/Day [...] encounter Miscellaneous Notes * Telephone Encounter - Sampson Albrecht - 02/24/2025 12:39 PM EST Tc from pt requesting a HDF appt. [facility]: [facility] Date of admission: 02/18 Discharge date: 02/24 Diagnosed: abdominal pain lead to surgery *Send message to [place] Clinical Care Coordinators Contact pt at [phone] (upper sorbian) documented in this encounter Plan of Treatment Upcoming Encounters Date Type Department Care Team (Late st Contact Info) Description 03/30/2025 1:00 PM EST Office Visit [facility] OPTOMETRY [address] [place] [address] Puja Clark, OD [address] [place] [address] 04/02/2025 10:30 AM EST Clinical Support [facility] MEDICINE [address] [place] [address] Franca Murillo RN 07/20/2025 12:45 PM EDT Office Visit [facility] ADULT DENTAL [address] [place] [address] Sri Lara [address] [place] [address] documented as of this encounter Goals Goal [...] chronic kidney disease No Regis Juan Pablo Weekly blood pressure task Care Plan Weekly blood pressure task No Stacy Juan Pablo Weekly blood pressure task Care Plan Weekly blood pressure task No Stacy, Juan Pablo Patient has chronic kidney disease Care Plan Patient has chronic kidney disease No Stacy, Juan Pablo Patient has chronic kidney disease Care Plan Patient has chronic kidney disease No Regis Juan Pablo Weekly blood pressure [...] has chronic kidney disease No Lolis Orona documented as of this encounter Visit Diagnoses Not on filedocumented in this encounter Additional Health Concerns Active [...] 02/24/2025 Patient has chronic kidney disease 02/24/2025 Assessment Noted Time PHQ-9 Depression Total Score: 22 025 1:02 PM EDT documented as of this encounter Care Teams City Supervisor Relationship Specialty Start Date End Date Joanne Chino NP [address] [place] [address] PCP - General Family Medicine 08/31/23 documented as of this encounter
--- OUTSIDE RECORDS SUMMARY | 2025-03-09 16:59 | XMS_ITS | Encounter Summary ---
Author Organization [employer] Address 75 [facility] 7t [place] [address] Care Team Providers Care Front Office Administrator Name Role Phone Joanne Chino NP Primary Care Provider [phone] Reason for Visit * Reason Comments Med Refill Encounter Details Date Type Department Care Team ([facility] st Contact Info) Description 05/26/2024 Refill [facility] MEDICINE [address] [place], [place] [phone] Joanne Chino NP [address] [place], [place] [phone] Chronic pain syndrome Social History Tobacco Use [...] Description 03/30/2025 1:00 PM EST Office Visit [facility] OPTOMETRY [address] [place] [address] EduardoPuja moseley, OD [address] [place] [address] 04/02/2025 10:30 AM EST Clinical Support [facility] MEDICINE [address] [place] [address] Franca Murillo RN 07/20/2025 12:45 PM EDT Office Visit [facility] ADULT DENTAL [address] [place] [address] Sri Lara [address] [place] [address] documented as of this encounter Visit Diagnoses Diagnosis Chronic pain syndrome documented in this encounter Additional Health Concerns Assessment Noted Time PHQ-9 Depression Total Score: 0 08/31/19 24 2:53 PM EDT documented as of this encounter Care Teams Front Office Administrator Relationship Specialty Start Date End Date Joanne Chino NP [address] [place] [address] PCP - General Family Medicine 08/31/23 documented as of this encounter
--- OUTSIDE RECORDS SUMMARY | 2025-03-09 16:59 | XMS_ITS | Encounter Summary ---
Author Organization [employer] Address 75 [facility] 7t [place] [address] Care Team Providers Care Hard Metals Engraver Hand Name Role Phone Ryanne DaoP Primary Care Provider [phone] Joanne Chino NP Primary Care Provider [phone] Reason for Visit * Reason Onset Date Comments Question 08/10/2023 Encounter Details Date Type Department Care Team ([facility] st Contact Info) Description 08/10/2023 Telephone [facility] MEDICINE [address] [place], [place] [phone] Ryanne Dao FNP [address] [place] [address] Question Social History Tobacco Use Types Packs/Day [...] problems with any of the following? Mold;Lead [place] or Pipes 05/18/2023 Food Insecurity Answer Date [...] regards to the message below please call [phone] * Telephone Encounter - Lizette Kelley RN - 08/10/2023 3:19 PM EDT Please review and advise for below request. * Telephone Encounter - Elver Merino - 08/10/2023 2:43 PM EDT Tc from [place] from [facility] requesting Providers thought on if the patient is capable of having a motor scooter documented in this encounter Plan of Treatment Upcoming Encounters Date Type Department Care Team (Late st Contact Info) Description 03/30/2025 1:00 PM EST Office Visit [facility] OPTOMETRY [address] [place] [address] EduardoPuja moseley, OD [address] [place], [place] [phone] 04/02/2025 10:30 AM EST Clinical Support [facility] MEDICINE [address] [place] [address] Franca Murillo RN 07/20/2025 12:45 PM EDT Office Visit [facility] ADULT DENTAL [address] [place] [address] MarcoSri [address] [place] [address] documented as of this encounter Visit Diagnoses Not on filedocumented in this encounter Additional Health Concerns Assessment Noted Time PHQ-9 Depression Total Score: 24 024 2:10 PM EST documented as of this encounter Care Teams Hard Metals Engraver Hand Relationship Specialty Start Date End Date Ryanne Dao FNP [address] [place] [address] PCP - General Family Medicine 02/02/22 08/30/23 Joanne Chino NP [address] [place] [address] PCP - General Family Medicine 08/31/23 documented as of this encounter
--- OUTSIDE RECORDS SUMMARY | 2025-03-09 16:59 | XMS_ITS | Encounter Summary ---
Author Organization [employer] Address 75 [facility] 7t [place] [address] Care Team Providers Care Tank Furnace Operator Name Role Phone Ryanne Dao CONTACT FINGER ASSEMBLER Primary Care Provider [phone] Joanne Chino NP Primary Care Provider [phone] Encounter Details Date Type Department Care Team (Late st Contact Info) Description 02/04/2022 Abstract [facility] MEDICINE [address] [place] [phone] Provider, MD Brigido Social History Tobacco Use Types Packs/Day Years [...] Description 03/30/2025 1:00 PM EST Office Visit [facility] OPTOMETRY [address] [place] [address] Puja Clark, OD [address] [place] [address] 04/02/2025 10:30 AM EST Clinical Support [facility] MEDICINE [address] [place] [address] Franca Murillo RN 07/20/2025 12:45 PM EDT Office Visit [facility] ADULT DENTAL [address] [place] [address] Sri Lara [address] [place] [address] documented as of this encounter Visit Diagnoses Not on filedocumented in this encounter Care Teams Tank Furnace Operator Relationship Specialty Start Date End Date Ryanne Dao FNP [address] [place] [address] PCP - General Family Medicine 02/02/22 08/30/23 Joanne Chino NP [address] [place] [address] PCP - General Family Medicine 08/31/23 documented as of this encounter
--- OUTSIDE RECORDS SUMMARY | 2025-03-09 16:59 | XMS_ITS | Encounter Summary ---
Author Organization [employer] Address 75 [facility] 7t [place] [address] Care Team Providers Care Channel Marketing Manager Name Role Phone Ryanne DaoP Primary Care Provider + Joanne Chino NP Primary Care Provider [phone] Reason for Visit * Reason Comments Med Refill Encounter Details Date Type Department Care Team (Late st Contact Info) Description 05/22/[address] [facility] MEDICINE [address] [place] [address] Ryanne Dao FNP [address] [place] [address] Rheumatoid arthritis involving multiple sites, unspecified whether [...] 1:00 PM EST Office Visit [facility] OPTOMETRY [address] [place] [address] Puja Clark, OD [address] [place] [address] 04/02/2025 10:30 AM EST Clinical Support [facility] MEDICINE [address] [place] [address] Franca Murillo RN 07/20/2025 12:45 PM EDT Office Visit [facility] ADULT DENTAL [address] [place], [place] [phone] Sri Lara [address] [place] [address] documented as of this encounter Visit Diagnoses Diagnosis Rheumatoid arthritis involving multiple sites, unspecified whether rheumatoid factor present (CMS/HCC) ([facility]) Chronic pain syndrome documented in this encounter Care Teams Channel Marketing Manager Relationship Specialty Start Date End Date Ryanne Dao FNP [address] [place] [address] PCP - General Family Medicine 02/02/22 08/30/23 Joanne Chino NP [address] [place] [address] PCP - General Family Medicine 08/31/23 documented as of this encounter
--- OUTSIDE RECORDS SUMMARY | 2025-03-09 16:59 | XMS_ITS | Encounter Summary ---
Author Organization [facility] [employer] [facility] Address [address] [place] [address] Encounters * CPT with Medical [facility] at [facility] on 2025-01-18 { reasonForRequest : Patient has left side body pain, and vomiting. , garland entReports : , denies :[ Sharp focal or diffuse abdominal pain , Vomiting blood/coffee ground material , Bloating, jaundice new onset with pain&quot ;, Nausea and vomiting greater than 2 hours with abdominal pain , Tearing pain that radiates to back , Food Impaction ], chiefComplaints : Abdominal Pain,Back Pain, Diarrhea, Nausea / Vomiting, Weakness , pmh : Hypertension, CoronaryArtery Disease, Congestive Heart Failure, Diabetes Mellitus Type 2 , allergies :&quot ;Ceftriaxone , otherAllergies :null, painAssessment : , vis itOutcome : , additionalComments : 44 y.o female complains of Abdominal Pain, Back Pain, Diarrhea, Nausea / Vomiting, Weakness\n\nPatient reports a week of left sided body pain\nPain is worse with eating\nThe pain induces vomiting\nLast episode of vomiting was last night\nPatient does have some left sided chest pain, no jaw or neck pain\nMild shortness of breath\n+headache, no dizziness\nNo fever, +chills\nBlood sugars have been up and down, does take a diuretic\nDenies being on a blood thinner\nShe would like to be evaluated\n\nI provided information on the mobile health provider response time and advised the patient and/or caregiver to monitor reported signsand symptoms. I discussed the warning signs of when to seek emergency care. } Patient Chief complained today of lower left quadrant abdominal pain which is going into her back as well as burning upon urination with an malodorous smell. Patient expresses that all signs and symptoms have been occurring for approximately one week prior to [facility] arrival today. Patient notes that pain in her abdomen is consistently and 8 out of 10 at rest with an increase upon movement. Patient expresses that when pain increases she has been known to vomit. Patient has been using acetaminophen at home with very little positive effect for pain management. Patient today expresses that she wouldappreciate a generalized assessment as well as potential treatment. Patient currently expresses no signs and symptoms of chest pain, shortness of breath, diarrhea, dizziness and or changes in vision.Patient notes that allergies are to keflex. Non-neural focal exam, afebrile, patient vitals noted to be elevated from her baseline. Patient able to ambulate at her baseline without the assistance of a person and or walking device. Lungs present as clear bilaterally upon auscultations. Upon inspection of the abdomen [facility] provider notes, no signs of trauma/ deformity/ bleeding. Upon palpation, pain is noted to be in the lower left quadrant, no Rigidity to the abdomen wall and or guarding, no CVA tenderness noted. No new and or worsening noted. Lower extremity edema. Patient is MOBLEY* 4. With the GCI score of 15. POC urinalysis notes positivity for leukocytes as well as blood. [facility] italo tils consulted. Patient is informed that due to findings it would be in her best interest to be seen at a facility of higher care today for for imaging that cannot be done in home. Patient fully agrees. [facility] calls ahead to [facility] while [facility] provider initiates emergency services for transport. Upon arrival of emergency services. [facility] S crew [facility] provider transfers patient care as well as full report to [facility] providers. Patient is transported to [facility] priority 1. IV_(FLUIDS_AND/OR_MEDICATION), MEDICATION_IM, ORAL_MEDICATION, EKG, POC_BLOODWORK, URINE_DIPSTICK, WOUND_CARE, ORTHOSTATIC_VITAL_SIGNS, PO_MEDICATION Written by Medical [facility] on 2025-01-18
--- OUTSIDE RECORDS SUMMARY | 2025-03-09 16:59 | XMS_ITS | Encounter Summary ---
Author Organization [employer] Address 75 [facility] 7t [place] [address] Care Team Providers Care Health And Nutrition Specialist Name Role Phone Joanne Chino MARY Primary Care Provider [phone] Encounter Details Date Type Department Care Team (Latest Contact Info) Description 03/09/2025 Travel Social History Tobacco Use Types Packs/Day [...] Description 03/30/2025 1:00 PM EST Office Visit [facility] OPTOMETRY [address] [place] [address] Eduardo, Puja, OD [address] [place] [address] 04/02/2025 10:30 AM EST Clinical Support [facility] MEDICINE [address] [place] [address] Franca Murillo RN 07/20/2025 12:45 PM EDT Office Visit [facility] ADULT DENTAL [address] [place] [address] Marco, Sri [address] [place] [address] documented as of this encounter Goals Goal Patient Goal Type Associated Problems Recent Progress Patient-Stated? Author Help patients manage their type 2 diabetes Care Plan Help patients manage their type 2 diabetes Franca Lopez RN Weekly blood pressure task Care Plan Weekly blood pressure task No Franca Murillo, ALBERTO Help patients manage their type 2 diabetes Care Plan Help patients manage their type 2 diabetes Franca Lopez, ALBERTO Patient has chronic kidney disease Care [...] blood pressure task No Stacy Juan Pablo Patient has chronic kidney disease [...] Weekly blood pressure task No Franca Murillo, RN Patient has chronic kidney disease Care Plan Patient has chronic kidney disease No Franca Murillo, ALBERTO Patient has chronic kidney disease Care Plan Patient has chronic kidney disease No Franca Murillo RN Weekly blood pressure task Care Plan Weekly blood pressure task No Colon Benedict Polina Weekly blood pressure task Care Plan Weekly blood pressure task No Colon Benedict Polina Patient has chronic kidney disease Care Plan Patient has chronic kidney disease No Colon Mcmullen, Polina Patient has chronic kidney disease Care Plan Patient has chronic kidney disease No Colon Thony Mcmullenla Weekly blood pressure task Care Plan Weekly blood pressure task No Franca Murillo, ALBERTO Weekly blood pressure task Care Plan Weekly blood pressure task No Franca Murillo, RN Patient has chronic kidney disease Care Plan Patient has chronic kidney disease No Franca Murillo, RN Patient has chronic kidney disease Care Plan Patient has chronic kidney disease No Franca Murillo RN Weekly blood pressure task Care Plan Weekly blood pressure task No JanineuiSampson john Weekly blood pressure task Care Plan Weekly blood pressure task No Santiagojimmyuil Sampson george Patient has chronic kidney disease Care Plan Patient has chronic kidney disease No JanineuiSampson john Patient has chronic kidney disease Care Plan Patient has chronic kidney disease No Santiagoaguil Rubi georgeeliacara Weekly blood pressure task Care Plan Weekly blood pressure task No Lynn Gaonaa, PharmD Weekly blood pressure task Care Plan Weekly blood pressure task No Lynn Gaonaa, PharmD Patient has chronic kidney disease Care Plan Patient has chronic kidney disease No Jimenez Elmira, PharmD Patient has chronic kidney disease Care Plan Patient has chronic kidney disease No Lynn Gaonaa, PharmD Weekly blood pressure task Care Plan Weekly blood pressure task No Joanne Chino BALANCE WHEEL SCREW HOLE DRILLER Weekly blood pressure task Care Plan Weekly blood pressure task No Joanne Chino, BALANCE WHEEL SCREW HOLE DRILLER Patient has chronic kidney disease Care Plan Patient has chronic kidney disease No Joanne Chino, BALANCE WHEEL SCREW HOLE DRILLER Patient has chronic kidney disease Care Plan Patient has chronic kidney disease No Joanne Chino BALANCE WHEEL SCREW HOLE DRILLER Weekly blood pressure task Care Plan Weekly blood pressure task No Joanne Chino, BALANCE WHEEL SCREW HOLE DRILLER Weekly blood pressure task Care Plan Weekly blood pressure task No Joanne Chino, BALANCE WHEEL SCREW HOLE DRILLER Patient has chronic kidney disease Care Plan Patient has chronic kidney disease No Joanne Chino, BALANCE WHEEL SCREW HOLE DRILLER Patient has chronic kidney disease Care Plan Patient has chronic kidney disease No Joanne Chino NP Weekly blood pressure task Care Plan Weekly blood pressure task No Nichole Reddy, RN Weekly blood pressure task Care Plan Weekly blood pressure task No Nichole Reddy, RN Patient has chronic kidney disease Care Plan Patient has chronic kidney disease No Nichole Reddy, RN Patient has chronic kidney disease Care [...] documented as of this encounter Care Teams Health And Nutrition Specialist Relationship Specialty Start Date End Date Joanne Chino NP [address] [place] [address] PCP - General Family Medicine 08/31/23 documented as of this encounter
--- OUTSIDE RECORDS SUMMARY | 2025-03-09 16:59 | XMS_ITS | Encounter Summary ---
Author Organization [employer] Address 75 [facility] 7t [place] [address] Care Team Providers Care Electric Trucker Name Role Phone Joanne Chino NP Primary Care Provider [phone] Reason for Visit * Reason Comments Med Refill Encounter Details Date Type Department Care Team ([facility] st Contact Info) Description 12/24/2024 Refill [facility] MEDICINE [address] [place], [place] [phone] Joanne Chino NP [address] [place], [place] [phone] Social History Tobacco Use Types Packs/Day Years [...] Visit [facility] OPTOMETRY [address] [place] [address] Eduardo, Puja, OD [address] [place] [address] 04/02/2025 10:30 AM EST Clinical Support [facility] MEDICINE [address] [place] [address] Franca Murillo RN 07/20/2025 12:45 PM EDT Office Visit [facility] ADULT DENTAL [address] [place] [address] Sri Lara [address] [place] [address] documented as of this encounter Visit Diagnoses Not on filedocumented in this encounter Additional Health Concerns Assessment Noted Time PHQ-9 Depression Total Score: 22 025 1:02 PM EDT documented as of this encounter Care Teams Electric Trucker Relationship Specialty Start Date End Date Joanne Chino NP [address] [place] [address] PCP - General Family Medicine 08/31/23 documented as of this encounter
--- OUTSIDE RECORDS SUMMARY | 2025-03-09 16:59 | XMS_ITS | Encounter Summary ---
Author Organization [employer] Address 75 [facility] 7t [place] [address] Care Team Providers Care Social Work Administrator Name Role Phone Joanne Chino NP Primary Care Provider [phone] Reason for Visit * Reason Comments Med Refill Encounter Details Date Type Department Care Team (Late st Contact Info) Description 09/17/2023 Refill [facility] MEDICINE [address] [place], [place] [phone] Joanne Chino NP [address] [place], [place] [phone] Postsurgical malabsorption, not elsewhere classified Social History [...] Description 03/30/2025 1:00 PM EST Office Visit [facility] OPTOMETRY [address] [place] [address] Eduardo, Puja, OD [address] [place] [address] 04/02/2025 10:30 AM EST Clinical Support [facility] MEDICINE [address] [place] [address] Franca Murillo, ALBERTO 07/20/2025 12:45 PM EDT Office Visit [facility] ADULT DENTAL [address] [place] [address] Marco, Sri [address] [place] [address] documented as of this encounter Visit Diagnoses Diagnosis Postsurgical malabsorption, not elsewhere classified documented in this encounter Additional Health Concerns Assessment Noted Time PHQ-9 Depression Total Score: 0 08/31/19 24 2:53 PM EDT documented as of this encounter Care Teams Social Work Administrator Relationship Specialty Start Date End Date Joanne Chino NP [address] [place] [address] PCP - General Family Medicine 08/31/23 documented as of this encounter
--- OUTSIDE RECORDS SUMMARY | 2025-03-09 16:59 | XMS_ITS | Encounter Summary ---
Author Organization [employer] Address 75 [facility] 7t [place] [address] Care Team Providers Care Sustainability Specialist Name Role Phone Joanne Chino NP Primary Care Provider [phone] Reason for Visit * Reason Onset Date Comments Appointment Request 03/09/2025 Encounter Details Date Type Department Care Team ([facility] st Contact Info) Description 03/09/2025 Telephone [facility] MEDICINE [address] [place], [place] [phone] Joanne Chino NP [address] [place] [address] Appointment Request Social History Tobacco Use Types Packs/Day [...] Score 22 11/25/2024 Patient Health Questionnaire-9 Score 11/25/2024 Last PHQ-9: Questionnaire Data Not on [...] Telephone Encounter - Nichole Reddy RN - 03/09/2025 1:45 PM EST RN spoke with PCP who is requesting team nurses contact pt's surgeon office and schedule follow up with their office. Spoke with Mili who states they will need to find a spot for the pt so they will call our office back this afternoon or tomorrow after 10 AM to let us know. TC placed to pt to inform of above message from surgeon office. No answer, LVM to call office back and ask to speak to the blue team nurses. documented in this encounter Plan of Treatment Upcoming Encounters Date Type Department Care Team (Late st Contact Info) Description 03/30/2025 1:00 PM EST Office Visit [facility] OPTOMETRY [address] [place] [address] Puja Clark, OD [address] [place] [address] 04/02/2025 10:30 AM EST Clinical Support [facility] MEDICINE [address] [place] [address] Franca Murillo RN 07/20/2025 12:45 PM EDT Office Visit [facility] ADULT DENTAL [address] [place] [address] Sri Lara [address] [place] [address] documented as of this encounter Goals Goal [...] Care Plan Weekly blood pressure task No Regis, Juan Pablo Patient has chronic kidney disease Care Plan Patient has chronic kidney disease No Regis, Juan Pablo Patient has chronic kidney disease Care Plan Patient has chronic kidney disease No Regis Juan Pablo Weekly blood pressure task Care Plan Weekly blood pressure task No Stacy, Juan Pablo Weekly blood pressure task Care Plan Weekly blood pressure task No Regis, Juan Pablo Patient has chronic kidney disease Care Plan Patient has chronic kidney disease No Regis, Juan Pablo Patient has chronic kidney disease [...] blood pressure task No Colon Mcmullen, Polina Weekly blood pressure task Care Plan Weekly blood pressure task No Colon Mcmullen, Polina Patient has chronic kidney disease Care Plan Patient has chronic kidney disease No Colon Mcmullen, Polina Patient has chronic kidney disease Care Plan Patient has chronic kidney disease No Colon Mcmullen, Polina Weekly blood pressure task Care Plan [...] Plan Weekly blood pressure task No Elmira Gaona PharmD Weekly blood pressure task Care Plan Weekly blood pressure task No Elmira Gaona PharmD Patient has chronic kidney disease Care Plan Patient has chronic kidney disease No Elmira Gaona PharmD Patient has chronic kidney disease Care Plan Patient has chronic kidney disease No Elmira Gaona PharmD Weekly blood pressure task Care Plan Weekly blood pressure task No Joanne Chino WET PRESS TENDER Weekly blood pressure task Care Plan Weekly blood pressure task No Joanne Chino WET PRESS TENDER Patient has chronic kidney disease Care Plan Patient has chronic kidney disease No Joanne Chino WET PRESS TENDER Patient has chronic kidney disease Care Plan Patient has chronic kidney disease No Joanne Chino WET PRESS TENDER Weekly blood pressure task Care Plan Weekly blood pressure task No Joanne Chino WET PRESS TENDER Weekly blood pressure task Care Plan Weekly blood pressure task No Joanne Chino WET PRESS TENDER Patient has chronic kidney disease Care Plan Patient has chronic kidney disease No Joanne Chino NP Patient has chronic kidney disease Care Plan Patient has chronic kidney disease No Joanne Chino NP Weekly blood pressure task Care Plan Weekly blood pressure task No Nichole Reddy RN Weekly blood pressure task Care Plan Weekly blood pressure task No Nichole Reddy RN Patient has chronic [...] documented as of this encounter Care Teams Sustainability Specialist Relationship Specialty Start Date End Date Joanne Chino NP [address] [place] [address] PCP - General Family Medicine 08/31/23 documented as of this encounter
--- OUTSIDE RECORDS SUMMARY | 2025-03-09 16:59 | XMS_ITS | Encounter Summary ---
Author Organization [employer] Address 75 [facility] 7t [place] [address] Care Team Providers Care Bed Bug Exterminator Name Role Phone Joanne Chino MARY Primary Care Provider [phone] Reason for Visit * Reason Comments Med Refill Encounter Details Date Type Department Care Team (Late st Contact Info) Description 09/02/2023 Refill [facility] WALK[facility]IN C[facility] [address] [place], [place] [phone] Ryanne Dao FNP [address] [place], [place] [phone] Social History Tobacco Use Types Packs/Day Years [...] Description 03/30/2025 1:00 PM EST Office Visit [facility] OPTOMETRY [address] [place] [address] Eduardo, Puja, OD [address] [place] [address] 04/02/2025 10:30 AM EST Clinical Support [facility] MEDICINE [address] [place] [address] Franca Murillo, ALBERTO 07/20/2025 12:45 PM EDT Office Visit [facility] ADULT DENTAL [address] [place] [address] Marco, Sri [address] [place] [address] documented as of this encounter Visit Diagnoses Not on filedocumented in this encounter Additional Health Concerns Assessment Noted Time PHQ-9 Depression Total Score: 0 08/31/19 24 2:53 PM EDT documented as of this encounter Care Teams Bed Bug Exterminator Relationship Specialty Start Date End Date Joanne Chino NP [address] [place] [address] PCP - General Family Medicine 08/31/23 documented as of this encounter
--- OUTSIDE RECORDS SUMMARY | 2025-03-09 16:59 | XMS_ITS | Encounter Summary ---
Author Organization [employer] Address 75 [facility] [address]t [place] [address] Care Team Providers Care E Commerce Merchant Name Role Phone Joanne Chino NP Primary Care Provider [phone] Reason for Visit * Reason Comments Med Refill Encounter Details Date Type Department Care Team ([facility] st Contact Info) Description 07/24/2024 Refill [facility] MEDICINE [address] [place], [place] [phone] Joanne Chino NP [address] [place], [place] [phone] Chronic pain syndrome Social History Tobacco Use [...] Description 03/30/2025 1:00 PM EST Office Visit [facility] OPTOMETRY [address] [place] [address] EduardoPuja moseley, OD [address] [place] [address] 04/02/2025 10:30 AM EST Clinical Support [facility] MEDICINE [address] [place] [address] Franca Murillo RN 07/20/2025 12:45 PM EDT Office Visit [facility] ADULT DENTAL [address] [place] [address] Sri Lara [address] [place] [address] documented as of this encounter Visit Diagnoses Diagnosis Chronic pain syndrome documented in this encounter Additional Health Concerns Assessment Noted Time PHQ-9 Depression Total Score: 0 08/31/19 24 2:53 PM EDT documented as of this encounter Care Teams E Commerce Merchant Relationship Specialty Start Date End Date Joanne Chino NP [address] [place] [address] PCP - General Family Medicine 08/31/23 documented as of this encounter
--- OUTSIDE RECORDS SUMMARY | 2025-03-09 16:59 | XMS_ITS | Encounter Summary ---
Author Organization [employer] Address [address] [facility] [address] [place] [address] Care Team Providers Care Bad Work Gatherer Name Role Phone CaridadRyanne davis TELEVISION WRITER Primary Care Provider [phone] Joanne Chino NP Primary Care Provider [phone] Encounter Details Date Type Department Care Team (Late Contact Info) Description 07/05/2022 Orders Only [facility] [address] [place] [address] Corina Watters FNP Social History Tobacco Use [...] 03/30/2025 1:00 PM EST Office Visit [facility] OPTOMETRY [address] [place] [address] Puja Clark, OD [address] [place] [address] 04/02/2025 10:30 AM EST Clinical Support [facility] MEDICINE [address] [place], [place] [phone] Franca Murillo RN 07/20/2025 12:45 PM EDT Office Visit [facility] ADULT DENTAL [address] [place], [place] [phone] Sri Lara [address] [place], [place] [phone] documented as of this encounter Visit Diagnoses Not on filedocumented in this encounter Additional Health Concerns Assessment Noted Time PHQ-9 Depression Total Score: 24 023 11:33 AM EST documented as of this encounter Care Teams Bad Work Gatherer Relationship Specialty Start Date End Date Ryanne Dao FNP [address] [place] [address] PCP - General Family Medicine 02/02/22 08/30/23 Joanne Chino NP [address] [place], [place] [phone] PCP - General Family Medicine 08/31/23 documented as of this encounter
--- OUTSIDE RECORDS SUMMARY | 2025-03-09 16:59 | XMS_ITS | Encounter Summary ---
Author Organization [employer] Address [address] [facility] [address]t [place] [address] Care Team Providers Care Portable Track Crew Chief Name Role Phone Joanne Chino NP Primary Care Provider [phone] Reason for Visit * Reason Comments Med Refill Encounter Details Date Type Department Care Team ([facility] st Contact Info) Description 06/26/2024 Refill [facility] MEDICINE [address] [place], [place] [phone] Joanne Chino NP [address] [place], [place] [phone] Chronic pain syndrome Social History Tobacco Use [...] Description 03/30/2025 1:00 PM EST Office Visit [facility] OPTOMETRY [address] [place] [address] EduardoPuja moseley, OD [address] [place] [address] 04/02/2025 10:30 AM EST Clinical Support [facility] MEDICINE [address] [place] [address] Franca Murillo RN 07/20/2025 12:45 PM EDT Office Visit [facility] ADULT DENTAL [address] [place] [address] Sri Lara [address] [place] [address] documented as of this encounter Visit Diagnoses Diagnosis Chronic pain syndrome documented in this encounter Additional Health Concerns Assessment Noted Time PHQ-9 Depression Total Score: 0 08/31/19 24 2:53 PM EDT documented as of this encounter Care Teams Portable Track Crew Chief Relationship Specialty Start Date End Date Joanne Chino NP [address] [place] [address] PCP - General Family Medicine 08/31/23 documented as of this encounter
--- OUTSIDE RECORDS SUMMARY | 2025-03-09 17:00 | XMS_ITS | Encounter Summary ---
Author Organization [employer] Address 75 [facility] 7t [place] [address] Care Team Providers Care Assistant Warehouse Manager Name Role Phone Ryanne Dao SOLE DYER Primary Care Provider + Joanne Chino NP Primary Care Provider [phone] Reason for Visit * Reason Comments Med Refill Encounter Details Date Type Department Care Team ([facility] st Contact Info) Description 07/05/[address] [facility] MEDICINE [address] [place], [place] [phone] Name, MD Juan Pablo 230 [place] [address] Rheumatoid arthritis involving multiple sites, unspecified whether [...] problems with any of the following? Mold;Lead [place] or Pipes 05/18/2023 Food Insecurity Answer Date [...] Description 03/30/2025 1:00 PM EST Office Visit [facility] OPTOMETRY [address] [place] [address] Eduardo, Puja, OD 230 [place] [address] 04/02/2025 10:30 AM EST Clinical Support [facility] MEDICINE [address] [place] [address] Franca Murillo RN 07/20/2025 12:45 PM EDT Office Visit [facility] ADULT DENTAL [address] [place] [address] Sri Lara [address] [place] [address] documented as of this encounter Visit Diagnoses Diagnosis Rheumatoid arthritis involving multiple sites, unspecified whether rheumatoid factor present (CMS/HCC) ([facility]) Chronic pain syndrome documented in this encounter Additional Health Concerns Assessment Noted Time PHQ-9 Depression Total Score: 24 024 2:10 PM EST documented as of this encounter Care Teams Assistant Warehouse Manager Relationship Specialty Start Date End Date Ryanne Dao FNP 230 [place] [address] PCP - General Family Medicine 02/02/22 08/30/23 Joanne Chino NP [address] [place] [address] PCP - General Family Medicine 08/31/23 documented as of this encounter
--- OUTSIDE RECORDS SUMMARY | 2025-03-09 17:00 | XMS_ITS | Encounter Summary ---
Author Organization [employer] Address 75 [facility] 7t [place] [address] Care Team Providers Care Marketing Intern Name Role Phone Joanne Chino NP Primary Care Provider [phone] Reason for Visit * Reason Comments Med Refill Encounter Details Date Type Department Care Team ([facility] st Contact Info) Description 04/03/2024 Refill [facility] MEDICINE 230 [place], [place] [phone] Joanne Chino NP 230 [place], [place] [phone] Postsurgical malabsorption, not elsewhere classified; Chronic pain [...] 03/30/2025 1:00 PM EST Office Visit [facility] OPTOMETRY [address] [place] [address] Puja Clark, OD 230 [place] [address] 04/02/2025 10:30 AM EST Clinical Support [facility] MEDICINE [address] [place] [address] Franca Murillo RN 07/20/2025 12:45 PM EDT Office Visit [facility] ADULT DENTAL [address] [place] [address] Sri Lara [address] [place] [address] documented as of this encounter Visit Diagnoses Diagnosis Postsurgical malabsorption, not elsewhere classified Chronic pain syndrome documented in this encounter Additional Health Concerns Assessment Noted Time PHQ-9 Depression Total Score: 0 08/31/19 24 2:53 PM EDT documented as of this encounter Care Teams Marketing Intern Relationship Specialty Start Date End Date Joanne Chino NP [address] [place] [address] PCP - General Family Medicine 08/31/23 documented as of this encounter
--- OUTSIDE RECORDS SUMMARY | 2025-03-09 17:00 | XMS_ITS | Encounter Summary ---
Author Organization [employer] Address 75 [facility] 7t [place] [address] Care Team Providers Care Excel Expert Name Role Phone Joanne Chino NP Primary Care Provider [phone] Encounter Details Date Type Department Care Team ([facility] st Contact Info) Description 03/03/[address] [facility] MEDICINE 230 [place], [place] [phone] Joanne Chino NP [address] [employer], [place] [phone] Social History Tobacco Use Types Packs/Day Years [...] Description 03/30/2025 1:00 PM EST Office Visit [facility] OPTOMETRY [address] [place] [address] Eduardo, Puja, OD [address] [place] [address] 04/02/2025 10:30 AM EST Clinical Support [facility] MEDICINE [address] [place] [address] Franca Murillo RN 07/20/2025 12:45 PM EDT Office Visit [facility] ADULT DENTAL [address] [place] [address] rSi Lara [address] [place] [address] documented as of this encounter Visit Diagnoses Not on filedocumented in this encounter Additional Health Concerns Assessment Noted Time PHQ-9 Depression Total Score: 0 08/31/19 24 2:53 PM EDT documented as of this encounter Care Teams Excel Expert Relationship Specialty Start Date End Date Joanne Chino NP [address] [place] [address] PCP - General Family Medicine 08/31/23 documented as of this encounter
--- OUTSIDE RECORDS SUMMARY | 2025-03-09 17:00 | XMS_ITS | Encounter Summary ---
Author Organization [employer] Address [address] [facility] 7t [place] [address] Care Team Providers Care Beater And Pulper Feeder Name Role Phone Ryanne Dao GAS PIT WORKER Primary Care Provider [phone] Joanne Chino NP Primary Care Provider [phone] Reason for Visit * Reason Comments Med Refill Encounter Details Date Type Department Care Team ([facility] st Contact Info) Description 07/05/[address] [facility] MEDICINE [address] [place], [place] [phone] Name, MD Juan Pablo 230 [place] [address] Rheumatoid arthritis involving multiple sites, unspecified whether [...] problems with any of the following? Mold;Lead [place] or Pipes 05/18/2023 Food Insecurity Answer Date [...] PM EST Office Visit [facility] OPTOMETRY [address] [place] [address] Eduardo, Puja, OD 230 [place] [address] 04/02/2025 10:30 AM EST Clinical Support [facility] MEDICINE [address] [place] [address] Franca Murillo RN 07/20/2025 12:45 PM EDT Office Visit [facility] ADULT DENTAL [address] [place] [address] Sri Lara [address] [place] [address] documented as of this encounter Visit Diagnoses Diagnosis Rheumatoid arthritis involving multiple sites, unspecified whether rheumatoid factor present (CMS/HCC) ([facility]) Chronic pain syndrome documented in this encounter Additional Health Concerns Assessment Noted Time PHQ-9 Depression Total Score: 24 024 2:10 PM EST documented as of this encounter Care Teams Beater And Pulper Feeder Relationship Specialty Start Date End Date Ryanne Dao FNP 230 [place] [address] PCP - General Family Medicine 02/02/22 08/30/23 Joanne Chino NP [address] [place] [address] PCP - General Family Medicine 08/31/23 documented as of this encounter
--- OUTSIDE RECORDS SUMMARY | 2025-03-09 17:00 | XMS_ITS | Encounter Summary ---
Author Organization [employer] Address [address] [facility] 7t [place] [address] Care Team Providers Care Meter Shop Superintendent Name Role Phone Joanne Chino NP Primary Care Provider [phone] Reason for Visit * Reason Comments Med Refill Encounter Details Date Type Department Care Team ([facility] st Contact Info) Description 05/02/2024 Refill [facility] MEDICINE [address] [place], [place] [phone] Joanne Chino NP 230 [place], [place] [phone] Chronic pain syndrome Social History Tobacco Use [...] Description 03/30/2025 1:00 PM EST Office Visit [facility] OPTOMETRY [address] [place] [address] EduardoPuja moseley, OD 230 [place] [address] 04/02/2025 10:30 AM EST Clinical Support [facility] MEDICINE [address] [place] [address] Franca Murillo RN 07/20/2025 12:45 PM EDT Office Visit [facility] ADULT DENTAL [address] [place] [address] Sri Lara 230 [place] [address] documented as of this encounter Visit Diagnoses Diagnosis Chronic pain syndrome documented in this encounter Additional Health Concerns Assessment Noted Time PHQ-9 Depression Total Score: 0 08/31/19 24 2:53 PM EDT documented as of this encounter Care Teams Meter Shop Superintendent Relationship Specialty Start Date End Date Joanne Chino NP 230 [place] [address] PCP - General Family Medicine 08/31/23 documented as of this encounter
--- OUTSIDE RECORDS SUMMARY | 2025-03-09 17:00 | XMS_ITS | Encounter Summary ---
Author Organization [employer] Address 75 [facility] 7t [place] [address] Care Team Providers Care Therapeutic Specialist Name Role Phone Ryanne DaoP Primary Care Provider [phone] Joanne Chino NP Primary Care Provider [phone] Reason for Visit * Reason Onset Date Comments ER Follow-up 10/24/2022 Encounter Details Date Type Department Care Team (Late st Contact Info) Description 10/24/2022 Telephone [facility] MEDICINE 230 [place], [place] [phone] Ryanne Dao FNP 230 [place] [address] ER Follow-up Social History Tobacco Use Types [...] pt to triage, spoke to pt through [place] supply controller. pt seen ER at [facility] yesterday and diagnosed with kidney infection. pt [...] to report ED visit on 10/23/22 at [facility]. Seen for back pain and unable to [...] Description 03/30/2025 1:00 PM EST Office Visit [facility] OPTOMETRY [address] [place] [address] Puja Clark, OD 230 [place] [address] 04/02/2025 10:30 AM EST Clinical Support [facility] MEDICINE 230 [place] [address] Franca Murillo RN 07/20/2025 12:45 PM EDT Office Visit [facility] ADULT DENTAL 230 [place] [address] Benjamin Laraaris 230 [place] [address] documented as of this encounter Visit Diagnoses Not on filedocumented in this encounter Additional Health Concerns Assessment Noted Time PHQ-9 Depression Total Score: 24 023 11:33 AM EST documented as of this encounter Care Teams Therapeutic Specialist Relationship Specialty Start Date End Date Ryanne Dao FNP 230 [place] [address] PCP - General Family Medicine 02/02/22 08/30/23 Joanne Chino NP [address] [place] [address] [phone] PCP - General Family Medicine 08/31/23 documented as of this encounter
--- OUTSIDE RECORDS SUMMARY | 2025-03-09 17:00 | XMS_ITS | Continuity of Care Document ---
Author Name [employer], Medical Address [address] [place] [id number] Organization Unknown Address [address] [place] [address] Medications No known medications Problems No known problems
--- OUTSIDE RECORDS SUMMARY | 2025-03-09 17:00 | XMS_ITS | Encounter Summary ---
Author Organization [employer] Address [address] [facility] [address] 7t [place] [address] Care Team Providers Care Gin Feeder Name Role Phone Ryanne Dao Primary Care Provider [phone] Joanne Chino NP Primary Care Provider [phone] Encounter Details Date Type Department Care Team (Late st Contact Info) Description 12/27/2022 Orders Only [facility] 230 [place], [place] [phone] Ryanne Dao FNP 230 [place] [address] Social History Tobacco Use Types Packs/Day Years [...] Office Visit [facility] OPTOMETRY [address] [place] [address] EduardoPuja moseley, OD 230 [place] [address] 04/02/2025 10:30 AM EST Clinical Support [facility] MEDICINE [address] [place] [address] Franca Murillo, ALBERTO 07/20/2025 12:45 PM EDT Office Visit [facility] ADULT DENTAL [address] [place] [address] Benjamin Laraaris 230 [place] [address] documented as of this encounter Visit Diagnoses Not on filedocumented in this encounter Additional Health Concerns Assessment Noted Time PHQ-9 Depression Total Score: 24 023 11:33 AM EST documented as of this encounter Care Teams Gin Feeder Relationship Specialty Start Date End Date Ryanne Dao FNP 230 [place] [address] PCP - General Family Medicine 02/02/22 08/30/23 Joanne Chino NP 230 [place] [address] PCP - General Family Medicine 08/31/23 documented as of this encounter
--- OUTSIDE RECORDS SUMMARY | 2025-03-09 17:00 | XMS_ITS | Encounter Summary ---
Author Organization [employer] Address 75 [facility] 7t [place] [address] Care Team Providers Care Field Training Manager Name Role Phone Joanne hCino NP Primary Care Provider [phone] Reason for Visit * Reason Comments Med Refill Encounter Details Date Type Department Care Team ([facility] st Contact Info) Description 05/02/2024 Refill [facility] MEDICINE 230 [place], [place] [phone] Joanne Chino NP 230 [place], [place] [phone] Chronic pain syndrome Social History Tobacco Use [...] Description 03/30/2025 1:00 PM EST Office Visit [facility] OPTOMETRY [address] [place] [address] EduardoPuja moseley, OD 230 [place] [address] 04/02/2025 10:30 AM EST Clinical Support [facility] MEDICINE [address] [place] [address] Franca Murillo RN 07/20/2025 12:45 PM EDT Office Visit [facility] ADULT DENTAL 230 [place] [address] Sri Lara [address] [place] [address] documented as of this encounter Visit Diagnoses Diagnosis Chronic pain syndrome documented in this encounter Additional Health Concerns Assessment Noted Time PHQ-9 Depression Total Score: 0 08/31/19 24 2:53 PM EDT documented as of this encounter Care Teams Field Training Manager Relationship Specialty Start Date End Date Joanne Chino NP 230 [place] [address] PCP - General Family Medicine 08/31/23 documented as of this encounter
--- OUTSIDE RECORDS SUMMARY | 2025-03-09 17:00 | XMS_ITS | Encounter Summary ---
Author Organization [employer] Address [address] [facility] 7t [place] [address] Care Team Providers Care Boiler Plant Worker Name Role Phone Ryanne Dao TIMEKEEPING SUPERVISOR Primary Care Provider [phone] Joanne Chino NP Primary Care Provider [phone] Reason for Visit * Reason Comments Med Refill Encounter Details Date Type Department Care Team ([facility] st Contact Info) Description 07/06/2023 Refill [facility] MEDICINE 230 [place], [place] [phone] Name, MD Juan Pablo 230 [place] [address] Rheumatoid arthritis involving multiple sites, unspecified whether [...] problems with any of the following? Mold;Lead [place] or Pipes 05/18/2023 Food Insecurity Answer Date [...] 1:00 PM EST Office Visit [facility] OPTOMETRY [address] [place] [address] Eduardo, Puja, OD 230 [place] [address] 04/02/2025 10:30 AM EST Clinical Support [facility] MEDICINE [address] [place] [address] Franca Murillo RN 07/20/2025 12:45 PM EDT Office Visit [facility] ADULT DENTAL [address] [place] [address] Sri Lara [address] [place] [address] documented as of this encounter Visit Diagnoses Diagnosis Rheumatoid arthritis involving multiple sites, unspecified whether rheumatoid factor present (CMS/HCC) ([facility]) Chronic pain syndrome documented in this encounter Additional Health Concerns Assessment Noted Time PHQ-9 Depression Total Score: 24 024 2:10 PM EST documented as of this encounter Care Teams Boiler Plant Worker Relationship Specialty Start Date End Date Ryanne Dao FNP 230 [place] [address] PCP - General Family Medicine 02/02/22 08/30/23 Joanne Chino NP [address] [place] [address] PCP - General Family Medicine 08/31/23 documented as of this encounter
--- OUTSIDE RECORDS SUMMARY | 2025-03-09 17:00 | XMS_ITS | Encounter Summary ---
Author Organization [email or web address] Address [address] [facility] 7t [place] [address] Care Team Providers Care Supplier Quality Specialist Name Role Phone Ryanne Dao Primary Care Provider [phone] Joanne Chino NP Primary Care Provider [phone] Reason for Visit * Reason Comments Med Change Request Encounter Details Date Type Department Care Team ([facility] st Contact Info) Description 06/07/2023 Refill [facility] MEDICINE 230 [place], [place] [phone] Ryanne Dao FNP [address] [place] [address] Rheumatoid arthritis involving multiple sites, unspecified whether [...] problems with any of the following? Mold;Lead [place] or Pipes 05/18/2023 Food Insecurity Answer Date [...] Description 03/30/2025 1:00 PM EST Office Visit [facility] OPTOMETRY [address] [place] [address] Eduardo, Puja, OD 230 [place] [address] 04/02/2025 10:30 AM EST Clinical Support [facility] MEDICINE 230 [place] [address] Franca Murillo RN 07/20/2025 12:45 PM EDT Office Visit [facility] ADULT DENTAL 230 [place] [address] Sri Lara [address] [place] [address] documented as of this encounter Visit Diagnoses Diagnosis Rheumatoid arthritis involving multiple sites, unspecified whether rheumatoid factor present (CMS/HCC) ([facility]) Chronic pain syndrome documented in this encounter Additional Health Concerns Assessment Noted Time PHQ-9 Depression Total Score: 24 024 2:10 PM EST documented as of this encounter Care Teams Supplier Quality Specialist Relationship Specialty Start Date End Date Ryanne Dao FNP 230 [place] [address] PCP - General Family Medicine 02/02/22 08/30/23 Joanne Chino NP [address] [place] [address] PCP - General Family Medicine 08/31/23 documented as of this encounter
--- OUTSIDE RECORDS SUMMARY | 2025-03-09 17:00 | XMS_ITS | Encounter Summary ---
Author Organization [employer] Address 75 [facility] 7t [place] [address] Care Team Providers Care Skiver Box Toe Name Role Phone Joanne Chino NP Primary Care Provider [phone] Reason for Visit * Reason Comments Med Refill Encounter Details Date Type Department Care Team ([facility] st Contact Info) Description 01/10/2024 Refill [facility] MEDICINE 230 [place], [place] [phone] Joanne Chino NP 230 [place], [place] [phone] Rheumatoid arthritis involving multiple sites, unspecified whether [...] 03/30/2025 1:00 PM EST Office Visit [facility] OPTOMETRY [address] [place] [address] Puja Clark, OD 230 [place] [address] 04/02/2025 10:30 AM EST Clinical Support [facility] MEDICINE [address] [place] [address] Franca Murillo RN 07/20/2025 12:45 PM EDT Office Visit [facility] ADULT DENTAL 230 [place] [address] Sri Lara [address] [place] [address] documented as of this encounter Visit Diagnoses Diagnosis Rheumatoid arthritis involving multiple sites, unspecified whether rheumatoid factor present (CMS/HCC) ([facility]) Chronic pain syndrome documented in this encounter Additional Health Concerns Assessment Noted Time PHQ-9 Depression Total Score: 0 08/31/19 24 2:53 PM EDT documented as of this encounter Care Teams Skiver Box Toe Relationship Specialty Start Date End Date Joanne Chino NP 230 [place] [address] PCP - General Family Medicine 08/31/23 documented as of this encounter
--- OUTSIDE RECORDS SUMMARY | 2025-03-09 17:00 | XMS_ITS | Encounter Summary ---
Author Organization [facility] Address [address] [place] [address] Care Team Providers Care Option Trader Name Role Phone Joanne Chino Primary Care Provider [phone] Encounter Details Date Type Department Care Team (Latest Contact Info) Description 04/03/2024 Transcribe Orders [facility]ician [facility]erral [facility] [address] [place] [address] Joanne Chino [facility] [address] [place] [phone] Rheumatoid arthritis of other site with positive [...] as of this encounter Plan of Treatment Not on file documented as of this encounter Visit Diagnoses Diagnosis 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- Primary documented in this encounter Care Teams Option Trader Relationship Specialty Start Date End Date Joanne Chino 230 [place] [address] PCP - General Family Medicine 04/03/24 documented as of this encounter
--- OUTSIDE RECORDS SUMMARY | 2025-03-09 17:00 | XMS_ITS | Encounter Summary ---
Author Organization [employer] Address 75 [facility] 7t [place] [address] Care Team Providers Care Route Sales Delivery Driver Name Role Phone Ryanne Dao Primary Care Provider [phone] Joanne Chino NP Primary Care Provider [phone] Reason for Visit * Reason Onset Date Comments RXN to bucket hooker Injection 02/21/2023 Encounter Details Date Type Department Care Team ([facility] st Contact Info) Description 02/21/2023 Telephone [facility] MEDICINE 230 [place], [place] [phone] Ryanne Dao FNP [address] [place] [address] RXN to bucket hooker Injection Social History Tobacco Use Types Packs/Day [...] to pt. Pt stated she saw the bucket hooker and they gave her some different type of injection. She now c/o being all swollen and unable to move. Asked her if she called her bucket hooker and reported this, she said she called [...] regarding current condition. Please contact pt at [phone]. documented in this encounter Plan of Treatment Upcoming Encounters Date Type Department Care Team (Late st Contact Info) Description 03/30/2025 1:00 PM EST Office Visit [facility] OPTOMETRY [address] [place] [address] Puja Clark, OD [address] [place] [address] 04/02/2025 10:30 AM EST Clinical Support [facility] MEDICINE [address] [place] [address] Franca Murillo RN 07/20/2025 12:45 PM EDT Office Visit [facility] ADULT DENTAL [address] [place] [address] MarcoSri [address] [place] [address] documented as of this encounter Visit Diagnoses Not on filedocumented in this encounter Additional Health Concerns Assessment Noted Time PHQ-9 Depression Total Score: 24 023 11:33 AM EST documented as of this encounter Care Teams Route Sales Delivery Driver Relationship Specialty Start Date End Date Ryanne Dao FNP [address] [place] [address] PCP - General Family Medicine 02/02/22 08/30/23 Joanne Chino NP [address] [place] [address] PCP - General Family Medicine 08/31/23 documented as of this encounter
--- OUTSIDE RECORDS SUMMARY | 2025-03-09 17:00 | XMS_ITS | Data Portability ---
Author Organization [employer], [facility] Address [address] [place] [address] Care Team Providers Care Pilot Teacher Name Role Phone HIM CCA OTHER Assessment Encounter Date Assessment Date Assessment LastModified by Organization Details LastModified Time 07/22/2023 07/22/2023 As noted, we randy cornejo called to see this patient regarding concerns of dysuria. Evaluation in the field was performed by my online advertising director colleague, as noted above, I provided real-time [...] Assessment and Plan as documented by the Account Resolution Expert. We discussed the diagnostic uncertainty of home [...] verbalized understanding of instructions to the medic. [email or web address] Not available 05/13/2024 15:01:23 01/18/2025 01/18/2025 I have reviewed and agree with the assessment and plan as documented by the online advertising director. I provided real time medical direction for this encounter and was immediately available to provide additional phone based assistance as needed. History as noted by online advertising director. Pt with history of Hypertension, Coronary Artery Disease, Congestive Heart Failure, Diabetes Mellitus Type 2, kidney stones, and is s/p prior hysterectomy. Pt reports 1 week of L mid/lower abdominal pain and L flank pain also with UTI symptoms of dysuria and foul smelling urine. Pt also endorsing nausea and intermittent vomiting. She notes feeling feverish but has not checked her temperature. On exam, pt afebrile but with elevated BP and HR, abdomen soft with LLQ tenderness. No CVA tenderness. Urine dip + for leukocytes and blood, nitrite - Impression: Pt with history of DM2 and kidney stones, now with 1 week of UTI symptoms with L sided flank and lower abdominal pain with intermittent vomiting and subjective fever, although she is afebrile today. She has LLQ tenderness on exam. Urine dip + for leukocytes and blood. I'm concerned that pt has a UTI iso possible ureteral calculus and obstructive uropathy, which may require urology intervention. Pt will need urgent imaging, u/s or CT, for further evaluation. I discuss this with the pt and she agrees to go to the ED for evaluation. Medic will arrange for EMS transport to the [facility] ED and I call an expect to the [facility] ED triage line as well. [email or web address] Not available 01/18/2025 12:31:54 Plan of Treatment Reminders Order Date Submit Date Provider Last Modified By Organization Details Last Modified Time Details Appointments None recorded. Lab urinalysis, dipstick 2024 025 [facility], [address] [place] [address], [id number] 5 13:36:17 BMP, serum or plasma 2024 025 [facility], [address] [place] [address], [id number] 5 08:13:51 rapid SARS CoV 2 Ag, QL IA, respiratory specimen 2023 024 [facility], [address] [place] [address], [id number] 4 15:07:02 rapid flu (A+B) 2023 024 [facility], [address] [place] [address], [id number] 4 15:07:02 rapid strep group A, throat 2023 024 [facility], [address] [place] [address], [id number] 4 15:07:02 culture, urine 2023 024 [place] [facility] (Centralized Electronic Ordering - All Locations), Patient Can Go To The Location Of Their Choice, [id number] 4 14:06:52 urinalysis, dipstick [address], [id number] 4 09:09:07 Referral None recorded. Procedures None recorded. Surgeries None recorded. Imaging electrocard iogram 2023 024 [facility], [address] [place] [address], [id number] 4 15:23:08 Medication Orders ketorolac 30 mg/mL injection solution 2024 025 [email or web address] 0 [facility], [address] [place] [address], [place], [place], [id number], 5 14:50:35 ondansetron 4 mg disintegrat ing tablet 2024 025 [email or web address] 0 [facility], [address] [place] [address], [id number], 5 14:54:42 ondansetron 4 mg disintegrat ing tablet 2024 025 [facility], [address] [place] [address], [id number], 5 16:38:39 levofloxaci n 750 mg tablet 2023 024 [facility], [address] [place] [address], [id number], 4 15:22:12 levofloxaci n 750 mg tablet 2023 [facility], [address] [place] [address], [id number], 4 11:26:40 ondansetron 4 mg disintegrat ing tablet 2023 024 [facility], [address] [place] [address], [id number], 4 15:22:13 Robitussin Cough-Chest Congestion DM 5 mg-100 mg/5 mL oral liquid 2023 024 [facility], [address] [place] [address], [id number], 4 11:26:40 cefadroxil 500 mg capsule 2023 024 [facility], [address] [place] [address], [id number], 4 14:32:59 Patient TargetsNo targets recorded. Patient InstructionsNo instructions recorded. Reason for Referral None Reported. Results Created Date Observation Date Name Description Value Unit Range Abnormal Flag Note LastModifiedBy Organization Detail LastModifiedTime 07/22/19 24 07/26/2023 URINE CULTU RE,CO MPREH ENSIV E urine culture,comp rehensive Final report abnormal Not Available [facility] ([facility]) [address] [place], [address], 07/26/2023 12:06:12 07/22/19 24 07/26/2023 URINE CULTU [...] ng units per mL Not Available [facility] ([facility]) [address] [facility], [place], [address], 07/26/2023 12:06:12 07/22/19 24 07/26/2023 URINE CULTU [...] thopr im/Robert lfa S Not Available [facility] ([facility]) [address] [place], [address], 07/26/2023 12:06:12 01/06/2001/06/2024 rapid strep group A, throa t Strep negati ve Not Available [facility] [address] [place] [address], [id number] 01/06/2024 15:06:39 01/06/20 24 01/06/2024 rapid flu (A+B) Flu negati ve Not Available [facility] [address] [place] [address], [id number] 01/06/2024 15:06:32 01/06/20 24 01/06/2024 rapid SARS CoV 2 Ag, QL IA, respi rator y speci men rapid SARS CoV 2 Ag, QL IA, respiratory specimen negati ve Not Available [facility] ed [address] [place] [address], [id number] 01/06/2024 15:06:27 01/06/20 24 01/06/2024 elect alicja cheema am No observ ation record ed. [email or web address] [address], [phone] 01/06/2024 15:23:07 Result Notes None recorded. Medical Equipment None Reported. Allergies Allergen ID Allergen Name Allergen Category Reaction Reaction Severity Criticality Documentation Date Start Date Code Code System Note Provider Name and Address Organization Details Recorded Time 6663 ceftriaxo ne medicatio n Not available Not available Not available 01/06/2024 2193 RxNorm Not Available [facility] - production 03:42:57 Medications Name Sig Start [...] 1 CAPSULE BY MOUTH ONCE WEEKLY ON SUNDAY MORNING active Not Available Not Available No [...] t Available Vitals Date Recorded Body weight Heart rate Body temperature Respiratory rate Oxygen saturation Body height Systolic And Diastolic Provider Name and Address Organization Details Last Updated DateTime 5 66281.2 4 g 106 /min 97.2 [degF] 16 /min 96 % 160.02 cm 125/83 mm[Hg] Not Available [facility] 5 14:38:49 Date Recorded Body temperature Oxygen saturation Heart rate Respiratory rate Systolic And Diastolic Provider Name and Address Organization Details Last Updated DateTime 4 97.6 [degF] 95 % 91 /min 16 /min 158/87 mm[Hg] Not Available [facility] 4 19:27:54 Date Recorded Oxygen saturation Body weight Body height Body temperature Heart rate Respiratory rate Systolic And Diastolic Provider Name and Address Organization Details Last Updated DateTime 4 99 % 52423.2 4 g 160.02 cm 98 [degF] 81 /min 17 /min 180/100 mm[Hg] Not Available [facility] 4 14:52:08 Date Recorded Oxygen saturation Respiratory rate Heart rate Body height Body weight Body temperature Systolic And Diastolic Provider Name and Address Organization Details Last Updated DateTime 5 98 % 19 /min 112 /min 160.02 cm 143378. 344 g 97.9 [degF] 159/92 mm[Hg] Not Available [facility] 5 12:07:47 Date Recorded Body height Oxygen saturation Respiratory rate Heart rate Body weight Body temperature Systolic And Diastolic Provider Name and Address Organization Details Last Updated DateTime 5 160.02 cm 99 % 18 /min 102 /min 039486. 12 g 98.9 [degF] 180/100 mm[Hg] Not Available [facility] 5 17:54:05 Social History None recorded. Functional Status None recorded. Mental Status None recorded. Family History Nothing Reported. Medical History No medical history recorded. Gynecological HistoryNo gynecological history recorded. Obstetrics History GPAL:G 0 P 0 0 0 0 Past Encounters Encounter ID Performer Location Encounter Start Date Encounter Closed Date Diagnosis/Indication Diagnosis SNOMED-CT Code Diagnosis ICD10 Code Diagnosis IMO Codes Diagnosis Note [id number] Carmella Rodgers MD [facility] [address] [place] [phone] 04/16/2023 11:29:27 04/17/2023 10:59:32 Urinary symptoms 584612614 R39.9 advised to stay well hydrated- offered tylenol for pain- accepted-/ advised to avoid caffeine as this is a bladder irritant/h as no history of CKD and denies any possibilit y of . I have added Pyridium for discomfort and explained to the patient that it may discolor her urine. She verbalized understand ing Pain of ear 230602489 H9 2.09 denies hearing loss- nothing visible externally -will be on antibiotic s but advised needs follow-up with PCP for full ear exam [id number] Dede Tan MD [facility] [address] [place] [phone] 07/22/2023 19:27:51 07/24/2023 11:46:37 Urinary symptoms [id number] R39.9 [id number] JEN MATTA MD [facility] [address] [place] [address] 01/06/2024 14:37:47 01/08/2024 10:09:12 Community acquired pneumonia [id number] J18.9 Evaluation in the field was performed by my online advertising director colleague, as noted above, I provided real-time [...] strep were negative.Q Tc is 446 ms.Allergi alex reviewed. Impression :Community acquired Pneumonia Plan:-Andreia ent reports pruritus with Ceftriaxon e. Since ECG showed a normal QTc, treatment with Levofloxac in 750 mg daily for a total of 5 days was initiated. The first dose was given by the online advertising director. -Zofran 4 mg PO was given. No [...] diarrhea, weakness, dizziness, or any other concerns. [id number] Carmella Rodgers MD [facility] [address] [place] [phone] 05/13/2024 14:38:42 05/14/2024 12:20:52 Pain of left knee joint 9900949395 98620 M25.562 advised ice / wrapped in a [...] maximally 4 g per 24 hours Nausea 805888328 R11.0 Patient denies any possibilit y of /is only in same-sex relationsh ip. Patient feels the pain is causing her nausea. Has had Zofran before but has not in the home offered and accepted. [id number] Italo Hanson MD [address] [phone] 01/18/2025 12:07:41 01/20/2025 15:37:22 Left flank pain 277489770 R10.A2 739723 Urinary symptoms 4868142 08 R39.9 [id number] [facility] [address] [place] [address] 02/18/2025 17:45:42 02/18/2025 20:06:40 Urinary symptoms 633048873 R39.9 [id number] Evaluation in the field was performed by my online advertising director colleague, as noted above, I provided real-time direction and supervisio n for this visit. The evaluation revealed 44-year-ol d female with history of hypertensi on, nonischemi c cardiomyop athy, rheumatoid arthritis, type 2 diabetes, prior Ofelia-en-Y gastric bypass, prior ESBL UTI, and kidney stones presents with severe left flank pain, foul-smell ing urine, nausea, vomiting, and inability to tolerate PO intake. When the online advertising director arrived, the patient reported 10/10 left flank pain, stating the pain was so severe it was difficult to speak or breathe. She also reported chills, nausea, and vomiting. She had a similar presentati on on 01/18/25, when she was sent to [facility] ED and diagnosed with sepsis secondary to acute pyelonephr itis, treated with IV meropenem. Today, online advertising director assessed the patient and due to severity of symptoms and clinical concern activated 911. Vital Signs: BP 180/100, Pulse 102, RR 18, SpO2 99% on room air, Temp 98.9 FExam:Gene ral: Significan t distress due to pain.Back: Marked left CVA tenderness .Abdomen: Not fully assessed due to pain.Aller gies reviewed. Impression :Severe left flank pain with systemic symptoms (chills, vomiting, inability to tolerate PO) in a high-risk patient with prior ESBL pyelonephr itis, nephrolith iasis, and cardiomyop athy. Presentati on highly concerning for recurrent acute pyelonephr itis, possible obstructin g stone, and early sepsis, especially given prior ESBL infection requiring IV meropenem. Ill-appear ing, tachycardi c, and unable to maintain hydration. Requires emergent evaluation and IV therapy. Home management is unsafe. Plan:911 activation already completed by online advertising director immediate ED transfer.A nticipated ED needs:CBC, CMP, lactate, blood culturesUA + urine cultureCT Abdomen/Pe lvis (stone protocol) to assess for obstructio nIV antibiotic s with ESBL coverage (e.g., meropenem) IV analgesics and antiemetic sExpect called at [facility] ED Primary care, consider__ _ Dispositio n:We discussed the situation and I recommende d referral to the emergency department . Health Concerns Section Related Observation LastModified by Organization Detai ls LastModified Time None Recorded Concern Status LastModified by Organization Details LastModified Time None Recorded Advance Directives Directive None Recorded Payers Insurance Date Sequence Insurance Name Policy Number Policy Multani Covered Member ID Multani Member ID Guarantor Name 02/18/2025 1 [facility] - DOS ON OR AFTER 2022 - DUAL ELIGIBLE - [facility] OPTIONS AND ONE CARE (MEDICARE REPLACEMENT/ADV ANTAGE - HMO) Gita Francis [id number] Gita Francis Notes Date Note Type Note Provider Name and Address Organization Details Recorded Time 07/22/2023 text/html [facility] Nurse Triage Notes (Rosales Bhatti): Chief Complaints: Abdominal Pain, UTI/Pyelonephritis, Nausea/Vomiting PMH: Hypertension, Diabetes, Heart Disease Allergies: Ceftriaxone Comments: Animal Groomer verified the member's name//address and phone number. Mbr American speaking only, bicycle i assembler #[id number] used for triage. Mbr c/o bilateral flank [...] emergency treatment if needed -Ginny Bhatti RN [facility] HPI: 1 wk UTI, h/o same 4mo ago. no vomiting, fever. some nausea. Account Resolution Expert POC Test Results from Gabe White - ALS Urine Dipstick (1) [19:41] Urine leukocytes: 2+ JUANY Urine nitrites: + NIT Urine urobilinogen: - URO Urine protein: 2+ PRO Urine pH: 5.0 pH Urine blood: - BLO Urine specific gravity: 1.015 SG Urine ketones: - KET Urine bilirubin: - SABRINA Urine glucose: - GLU ..................... ..................... ..................... ..................... ..................... ..................... ............... Account Resolution Expert Note From Gabe White: Pt reports one [...] +NIT, 2+ PRO. UC sent to [facility]. [facility] to send rx to pharmacy. Pt instructed to stay well hydrated, f/u with PCP and to seek emergent medical care for new or worsening sx, which are reviewed with her. ..................... ..................... ..................... ..................... ..................... ..................... ............... Disposition: Fulfilled Dede Tan MD [address] [facility],[address], [place], [address], JORI Jesus KogetoJUAN FRANCISCO 07/22/2023 19:53:01 01/06/2024 text/html ROS as noted in the HPI [facility] Nurse Triage Notes (Santos Burroughs): Reason For Request: Patient has a head ache, body pain, chills, fever, lungs hurt, general illness. Chief Complaints: URI PMH: Hypertension, Diabetes, Heart Disease Allergies: Ceftriaxone Comments: Animal Groomer verified the Pt.'s name//address and phone number. Education provided on the response time and the Pt. was advised to monitor reported s/s and seek emergency treatment if needed. HPI: I 10 HTN (hypertension)G47.00 PgwlnubvJ89.2 PjaqtbzfasorB87.90 PhborxltiD49.40 Adrenal dawlxuubqydguP57.84 Bariatric surgery jmlivkJ77.844 Bariatric surgery status complicating nwyvywtataB86.9 CHF (congestive heart failure)G89.29 Chronic painF41.1 MekzkzwY00.9 Rheumatoid jcujlijxvU55.9 Vitamin D ofatgimmhtD48.0 Acute stress alghjobsU06.5 Bipolar disorder, current episode depressed, severe, with psychotic yiysxuvzA01.3 Major depressive disorder, recurrent, severe with psychotic mwwtfsssX43.0 Bilateral primary osteoarthritis of kneeD64.9 Anemia, unspecified type.Pt reports feeling unwell with a cough/cold and congestion - Body aches - Fever - SOB - Breathing is non labored and the pt is speaking full sentences - S/S for 3 days. Wellness visit requested. Account Resolution Expert Organization Information for [employer] Legal Name: [employer]. Address: [address] [place] [id number], Cotton Stomper: Jp Johns MD CLIA No.: [id number] Account Resolution Expert POC Test Results from [employer] Rapid strep test (14:54:11) Strep: - Rapid COVID antigen (14:54:12) COVID: - Rapid influenza antigen (14:54:15) Flu: - EKG (15:18:24) EKG test performed. Attachments uploaded as part of this test result can be found under Documents section. ..................... ..................... ..................... ..................... ..................... ..................... ............... Account Resolution Expert Note From [employer]: [facility] makes pt contact 43 yo F CC of congestion and fever.[facility] obtains vital signs. Also obtains a negative [...] pressure suspected from not taking the daily metoprolol.[facility] contacts [facility] and explains above mentioned. [facility] orders a 12 lead to check pts qTc before administration of zofran ODT and levofloxacin. qTc is normal. [facility] sends prescription of levofloxacin to pharmacy which pt is advised to take one tablet by mouth for four days starting tomorrow. [facility] administers 1 zofran ODT and 750mg of levofloxacin which is given in 1 500mg tablet and 1 250mg tablet. PT advised to call 911 or seek a higher level of care such as the emergency department if she begins having chest pain, severe n/v, or sob. PT understands. [facility] clear. ..................... ..................... ..................... ..................... ..................... ..................... ............... Disposition: Harsh JEN MATTA MD [address] [facility],[address], [place], [address], [employer] 01/06/2024 15:51:13 05/13/2024 text/html ROS as noted in the HPI [facility] Nurse Triage Notes (Dulce Najera): Reason For Request: Sunday she got a Knee shot, and now it's swollen, - and painful. Patient Reports: Fever and chills noted in setting of woundDenies: Kahn Flash, circumferential kahn Kahn reported with black tissue to the area Open skin area after a fall with uncontrolled bleeding Abscess/infection with streaking noted, presence of fever or without History of cellulitis, isolated redness noted Rash Bites -bugs, spider Abscess Chief Complaints: Extremity Pain, Extremity SwellingPMH: Hypertension, Coronary Artery Disease, Congestive Heart Failure, Diabetes Mellitus Type 2PMH Reviewed at 05/13/2024 - :Allergies Reviewed at 05/13/2024 - :Comments: mill helper utilized.c/o left knee pain, reported having a Cortisone injection Sunday and has pain since then. Member has been using heat for pain control. Reporting lack of appetite and nausea for 3 days now.Fever/chills also but no other Resp symptoms reportedHas not reached out to PCP or office that performed procedure.Right knee is hot to touch. no redness noted per member.Advised about response time & to seek 911 for immediate helpNicole DOMINGUEZ Account Resolution Expert Organization Information for Christopher Gabe Edin Arrieta Legal Name: [facility] Address: [address] [place] [address], [place] [address], Cotton Stomper: Altaf Conklin MD CLIA No.: [id number] Account Resolution Expert POC Test Results from Gabe White [facility] (14:39:48) pH: 7.44 pH units pCO2: [...] ..................... ..................... ..................... ..................... ..................... ..................... ............... Account Resolution Expert Note From Gabe White: This 43-year-old female [...] questions and is agreeable to this plan. [facility] Lab Orders: BMP, serum or plasma: Performed [facility] Medication Orders: ketorolac 30 mg/mL injection solution: Administered ondansetron 4 mg disintegrating tablet: Administered ..................... ..................... ..................... ..................... ..................... ..................... ............... [facility] Consulted: Carmella Rodgers ..................... ..................... ..................... ..................... ..................... ..................... ............... Disposition: Fulfilled Carmella Rodgers MD [address] [facility],[address], [place], [phone], [employer] 05/13/2024 15:43:55 01/18/2025 text/html ROS as noted in the HPI This was a supervised home visit with online advertising director Daina Green. [facility] Nurse Triage Notes (Kathy Lopez): Reason For Request: Patient has left side body pain, and vomiting.Denies: Sharp focal or diffuse abdominal pain Vomiting blood/coffee ground material Bloating, jaundice new onset with pain Nausea and vomiting greater than 2 hours with abdominal pain Tearing pain that radiates to back Food Impaction Chief Complaints: Abdominal Pain, Back Pain, Diarrhea, Nausea / Vomiting, WeaknessPMH: Hypertension, Coronary Artery Disease, Congestive Heart Failure, Diabetes Mellitus Type 2PMH Reviewed at 01/18/2025 09:59Allergies Reviewed at 01/18/2025 09:59Comments: 44 y.o female complains of Abdominal Pain, Back Pain, Diarrhea, Nausea / Vomiting, Weakness Patient reports a week of left sided body painPain is worse with eatingThe pain induces vomitingLast episode of vomiting was last nightPatient does have some left sided chest pain, no jaw or neck painMild shortness of breath+headache, no dizzinessNo fever, +chillsBlood sugars have been up and down, does take a diureticDenies being on a blood thinnerShe would like to be evaluated I provided information on the mobile health provider response time and advised the patient and/or caregiver to monitor reported signs and symptoms. I discussed the warning signs of when to seek emergency care. Account Resolution Expert Organization Information for Daina Green Legal Name: [facility] TransportationAddress : [address] [place], [place] [address], USMedical Director: Altaf [facility] No.: [id number] Account Resolution Expert POC Test Results from Daina Green - ALS Urine Dipstick (12:04:27)Urine leukocytes: +LEUUrine nitrites: -NITUrine urobilinogen: 0.2UROUrine protein: 15PROUrine pH: 5.0pHUrine blood: +BLOUrine specific gravity: 1.02SGUrine ketones: -KETUrine bilirubin: -BILUrine glucose: -GLUAttachments uploaded as part of this test result can be found under Documents section. ..................... ..................... ..................... ..................... ..................... ..................... ............... Account Resolution Expert Note From Daina Green: Patient Chief complained today of lower left quadrant abdominal pain which is going into her back as well as burning upon urination with an malodorous smell. Patient expresses that all signs and symptoms have been occurring for approximately one week prior to [facility] arrival today. Patient notes that pain in her abdomen is consistently and 8 out of 10 at rest with an increase upon movement. Patient expresses that when pain increases she has been known to vomit. Patient has been using acetaminophen at home with very little positive effect for pain management. Patient today expresses that she would appreciate a generalized assessment as well as potential treatment. Patient currently expresses no signs and symptoms of chest pain, shortness of breath, diarrhea, dizziness and or changes in vision. Patient notes that allergies are to keflex. Non-neural focal exam, afebrile, patient vitals noted to be elevated from her baseline. Patient able to ambulate at her baseline without the assistance of a person and or walking device. Lungs present as clear bilaterally upon auscultations. Upon inspection of the abdomen [facility] provider notes, no signs of trauma/ deformity/ bleeding. Upon palpation, pain is noted to be in the lower left quadrant, no Rigidity to the abdomen wall and or guarding, no CVA tenderness noted. No new and or worsening noted. Lower extremity edema. Patient is MOBLEY* 4. With the GCI score of 15. POC urinalysis notes positivity for leukocytes as well as blood. [facility] italo hanson consulted. Patient is informed that due to findings it would be in her best interest to be seen at a facility of higher care today for for imaging that cannot be done in home. Patient fully agrees. [facility] calls [facility] to [facility] while [facility] provider initiates emergency services for transport. Upon arrival of emergency services. [facility] S crew [facility] provider transfers patient care as well as full report to [facility] providers. [facility]. [facility] Lab Orders: urinalysis, dipstick: Performed ..................... ..................... ..................... ..................... ..................... ..................... ............... [facility] Consulted: Italo Hanson ..................... ..................... ..................... ..................... ..................... ..................... ............... Disposition: Fulfilled Italo Hanson MD [address] [facility],[address], [place], [address], [place] [employer] 01/18/2025 13:31:36 02/18/2025 text/html ROS as noted in the [facility] CRC Nurse Triage Notes (Teresa Piper): Reason For Request: Pt doest feel well, pain on left side in kidney area, urine has very foul smell Patient Reports: Painful urination; Frequent and increased urination with flank pain; Painful urination with or without fever Denies: Unable to void greater than 5 hours Erection that will not go away after 2 hours Fall or trauma that results in urinary incontinence in the setting of pain Fall or injury that results in incontinence in the absence of pain Lower back pain either unilateral or bilateral, unable to void, painful urination -hematuria Inability to fully empty bladder Chief Complaints: Urinary Symptoms PMH: Hypertension, Coronary Artery Disease, Congestive Heart Failure, Diabetes Mellitus Type 2, Urinary Tract Infections (UTI) PMH Reviewed at 02/18/2025 - 17:07 (ET) Allergies Reviewed at 02/18/2025 - 17:07 (ET) Comments: 44 y.o female complains of Urinary Symptoms Patient self referring symptoms for the last few days denies fever, endorses chills and body aches endorses lower abdomen and flank pain urgency and painful urination dark yellow and odoriferous. endorses nausea, no vomiting or loose stool. no kidney issues and denies any blood thinner use. requesting [facility] visit. I provided information on the mobile health provider response time and advised the patient and/or caregiver to monitor reported signs and symptoms. I discussed the warning signs of when to seek emergency care. ..................... ..................... ..................... ..................... ..................... ..................... ............... Account Resolution Expert Note From Zen Abarca: [facility] makes pt contact a 44 yo F CC of uti like symptoms and back pain. [facility] obtains vital signs. PT is in 10/10 pain on arrival and a hx of kidney infection recently with similar symptoms that are worse then before. [facility] contacts 911 for an ambulance to respond. [facility] contacts [facility] and explains situation. PT has positive CVA tenderness, one week onset of symptoms. PTs friend explains that she has been in 10/10 pain for a few days now and has been urging her to go to the hospital. Today she called [facility] because she wanted an evaluation. PT explains last time she was admitted for four days with a bacterial kidney infection. PT reports significant tenderness to left side kidney region. N/v/chills. PT explains pain from the left posterior back that travels around to her lower abdomen. PT allergy to ceftriaxone. [facility] arrives on scene and is given demographics of pt. PT [facility] to [facility]. [facility] clear. ..................... ..................... ..................... ..................... ..................... ..................... ............... [facility] Consulted: Jen Matta ..................... ..................... ..................... ..................... ..................... ..................... ............... Disposition: Harsh MATTA MD [address] [facility],[address], [place], [address], [employer] 02/18/2025 18:24:21 OBGyn Episode No OBEpisode recorded.
--- OUTSIDE RECORDS SUMMARY | 2025-03-09 17:00 | XMS_ITS | Encounter Summary ---
Author Organization [employer] Address [address] [facility] [address] [place] [address] Care Team Providers Care Vibrating Screen Operator Name Role Phone Joanne Chino NP Primary Care Provider [phone] Reason for Visit * Reason Onset Date Comments Med Refill 10/08/2024 Encounter Details Date Type Department Care Team (Late st Contact Info) Description 10/08/2024 Refill [facility] MEDICINE [address] [place], [place] [phone] Joanne Chino NP [address] [place] [address] Chronic pain syndrome (Primary Dx) Social History Tobacco Use Types [...] Telephone Encounter - Joanne Chino NP - 10/21/2024 11:08 AM EDT Approving, but needs appt for additional refills. * Telephone Encounter - Franca Murillo RN - 10/08/2024 11:05 AM EDT Per Emile, pt picked up Oxycodone refill on 09/23/24 for 28 day supply. Refill due 10/21/24. Will forward request to PCP on 10/17/24. * Telephone Encounter - [place] Child - 10/08/2024 10:10 AM EDT TC from pt requesting medication refill. Medications needing refill: Tramadol To be sent to: [facility] at [facility] [place] [place] - [address] [place] [address] documented in this encounter Plan of Treatment Upcoming Encounters Date Type Department Care Team (Late st Contact Info) Description 03/30/2025 1:00 PM EST Office Visit [facility] OPTOMETRY [address] [place] [address] Puja Clark, OD [address] [place] [address] 04/02/2025 10:30 AM EST Clinical Support [facility] MEDICINE [address] [place] [address] Franca Murillo, ALBERTO 07/20/2025 12:45 PM EDT Office Visit [facility] ADULT DENTAL [address] [place] [address] Sri Lara [address] [place] [address] documented as of this encounter Visit Diagnoses Diagnosis Chronic pain syndrome- Primary documented in this encounter Additional Health Concerns Assessment Noted Time PHQ-9 Depression Total Score: 0 08/31/19 24 2:53 PM EDT documented as of this encounter Care Teams Vibrating Screen Operator Relationship Specialty Start Date End Date Joanne Chino NP [address] [place] [address] PCP - General Family Medicine 08/31/23 documented as of this encounter
--- OUTSIDE RECORDS SUMMARY | 2025-03-09 17:00 | XMS_ITS | Encounter Summary ---
Author Organization [employer] Address [address] [facility] [address] [place] [address] Care Team Providers Care Rn Psych Name Role Phone Ryanne Dao Primary Care Provider [phone] Joanne Chino NP Primary Care Provider [phone] Reason for Visit * Reason Comments Med Refill Encounter Details Date Type Department Care Team (Late st Contact Info) Description 09/23/2022 Refill [facility] MED[facility] [address] [place] [address] Ryanne Dao FNP [address] [place] [address] Gastroesophageal reflux disease with esophagitis without hemorrhage [...] Visit [facility] OPTOMETRY [address] [place] [address] Puja Clark, OD [address] [place] [address] 04/02/2025 10:30 AM EST Clinical Support [facility] MED[facility] [address] [place] [address] Franca Murillo, ALBERTO 07/20/2025 12:45 PM EDT Office Visit [facility] ADULT DENTAL [address] [place] [address] Sri Lara [address] [place] [address] documented as of this encounter Visit Diagnoses Diagnosis Gastroesophageal reflux disease with esophagitis without hemorrhage documented in this encounter Additional Health Concerns Assessment Noted Time PHQ-9 Depression Total Score: 24 023 11:33 AM EST documented as of this encounter Care Teams Rn Psych Relationship Specialty Start Date End Date Ryanne Dao FNP [address] [place] [address] PCP - General Family Medicine 02/02/22 08/30/23 Joanne Chino NP [address] [place] [address] PCP - General Family Medicine 08/31/23 documented as of this encounter
--- OUTSIDE RECORDS SUMMARY | 2025-03-09 17:00 | XMS_ITS | Continuity of Care Document ---
Author Organization [employer] [facility], [facility] Address [address] [place] [address] Care Team Providers Care C Winforms Developer Name Role Phone HIM CCA OTHER Assessment No assessment recorded. Plan of Treatment Reminders Order Date Submit Date Provider Last Modified By Organization Details Last Modified Time Details Appointments None record ed. Lab None record ed. Referral None record ed. Procedures None record ed. Surgeries None record ed. Imaging None record ed. Medication Orders None record ed. Patient TargetsNo targets recorded. Patient InstructionsNo instructions recorded. Reason for Referral None Reported. Medical Equipment None Reported. Allergies Allergen ID Allergen Name Allergen Category Reaction Reaction Severity Criticality Documentation Date Start Date Code Code System Note Provider Name and Address Organization Details Recorded Time 6663 ceftriaxo ne medicatio n Not available Not available Not available 01/06/2024 2193 RxNorm Not Available [employer] [employer] 4 03:42:57 Medications Name Sig Start Date Stop [...] No t Available Vitals Date Recorded Body height Oxygen saturation Respiratory rate Heart rate Body weight Body temperature Systolic And Diastolic Provider Name and Address Organization Details Last Updated DateTime 5 160.02 cm 99 % 18 /min 102 /min 671370. 12 g 98.9 [degF] 180/100 mm[Hg] Not Available [facility] 5 17:54:05 Social History None recorded. Functional Status None recorded. Mental Status None recorded. Family History Nothing Reported. Medical History No medical history recorded. Gynecological HistoryNo gynecological history recorded. Obstetrics History GPAL:G 0 P 0 0 0 0 Past Encounters Encounter ID Performer Location Encounter Start Date Encounter Closed Date Diagnosis/Indication Diagnosis SNOMED-CT Code Diagnosis ICD10 Code Diagnosis IMO Codes Diagnosis Note [id number] JEN MATTA MD [facility] ED Medical [address] [phone] 02/18/2025 17:45:42 02/18/2025 20:06:40 Urinary symptoms [id number] R39.9 [id number] Evaluation in the field was performed by my supervisor pipeline maintenance colleague, as noted above, I provided real-time direction and supervisio n for this visit. The evaluation revealed 44-year-ol d female with history of hypertensi on, nonischemi c cardiomyop athy, rheumatoid arthritis, type 2 diabetes, prior Ofelia-en-Y gastric bypass, prior ESBL UTI, and kidney stones presents with severe left flank pain, foul-smell ing urine, nausea, vomiting, and inability to tolerate PO intake. When the supervisor pipeline maintenance arrived, the patient reported 10/10 left flank pain, stating the pain was so severe it was difficult to speak or breathe. She also reported chills, nausea, and vomiting. She had a similar presentati on on 01/18/25, when she was sent to [facility] ED and diagnosed with sepsis secondary to acute pyelonephr itis, treated with IV meropenem. Today, supervisor pipeline maintenance assessed the patient and due to severity of symptoms and clinical concern activated 911. Vital Signs: BP 180/100, Pulse 102, RR 18, SpO2 99% on room air, Temp 98.9 FExam:Gene ral: Significan t distress due to pain.Back: Marked left CVA tenderness .Abdomen: Not fully assessed due to pain.Kelly kuo reviewed. Impression :Severe left flank pain with [...] is unsafe. Plan:911 activation already completed by supervisor pipeline maintenance immediate ED transfer.A nticipated ED needs:CBC, CMP, lactate, blood culturesUA + urine cultureCT Abdomen/Pe lvis (stone protocol) to assess for obstructio nIV antibiotic s with ESBL coverage (e.g., meropenem) IV analgesics and antiemetic sExpect called at [facility] ED Primary care, consider__ _ Dispositio n:We discussed the situation and I recommende d referral to the emergency department . Health Concerns Section Related Observation LastModified by Organization Detai ls LastModified Time None Recorded Concern Status LastModified by Organization Details LastModified Time None Recorded Payers Encounter Date Sequence Insurance Name Policy Number Policy Multani Covered Member ID Multani Member ID Guarantor Name 02/18/2025 1 [facility] - DOS ON OR AFTER 2022 - DUAL ELIGIBLE - [employer] AND ONE C[employer] (MEDICARE REPLACEMENT/ADV ANTAGE - HMO) Gita Tito [id number] Gita Francis Notes Date Note Type Note Provider Name and Address Organization Details Recorded Time 02/18/2025 text/html ROS as noted in the [facility] CRC Nurse Triage Notes (Teresa Piper): Reason [...] and denies any blood thinner use. requesting [facility] visit. I provided information on the mobile health provider response time and advised the patient and/or caregiver to monitor reported signs and symptoms. I discussed the warning signs of when to seek emergency care. .................. .................. .................. .................. .................. .................. .................. ............... Deputy Fire Marshal Note From Zen Abarca: [facility] makes pt contact a 44 yo F CC of uti like symptoms and back pain. [facility] obtains vital signs. PT is in 10/10 pain on arrival and a hx of kidney infection recently with similar symptoms that are worse then before. [facility] contacts 1 for an ambulance to respond. [facility] contacts [facility] and explains situation. PT has positive CVA tenderness, one week onset of symptoms. PTs friend explains that she has been in 10/10 pain for a few days now and has been urging her to go to the hospital. Today she called [facility] because she wanted an evaluation. PT explains [...] pt. PT is to be transported to [facility] ED. [facility] clear. .................. .................. .................. .................. .................. .................. .................. ............... [facility] Consulted: Jen Matta .................. .................. .................. .................. .................. .................. .................. ............... Disposition: Fulfilled JEN MATTA MD [address] [place] [address],[address], [place], [address], [employer] 02/18/2025 18:24:21 OBGyn Episode No OBEpisode recorded.
--- OUTSIDE RECORDS SUMMARY | 2025-03-09 17:00 | XMS_ITS | Encounter Summary ---
Author Organization [employer] Address [address] [facility] [address] [place] [address] Care Team Providers Care Gin Operator Name Role Phone Ryanne Dao Primary Care Provider [phone] Joanne Chino NP Primary Care Provider [phone] Encounter Details Date Type Department Care Team (Late Contact Info) Description 11/07/2022 Orders Only [facility] MED [facility] PEDS [address], [place] [phone] Ryanne Dao FNP [address] [place], [place] [phone] Other iron deficiency anemia (Primary Dx) Social [...] Department Care Team (Late Contact Info) Description 03/30/2025 1:00 PM EST Office Visit [facility] OPTOMETRY [address] [place], [place] [phone] Puja Clark, OD [address] [place] [address] 04/02/2025 10:30 AM EST Clinical Support [facility] MEDICINE [address] [place] [address] Franca Murillo RN 07/20/2025 12:45 PM EDT Office Visit [facility] ADULT DENTAL [address] [place] [address] Sri Lara [address] [place] [address] documented as of this encounter Visit Diagnoses Diagnosis Other iron deficiency anemia- Primary documented in this encounter Additional Health Concerns Assessment Noted Time PHQ-9 Depression Total Score: 24 023 11:33 AM EST documented as of this encounter Care Teams Gin Operator Relationship Specialty Start Date End Date Ryanne Dao FNP [address] [place] [address] PCP - General Family Medicine 02/02/22 08/30/23 Joanne Chino NP [address] [place] [address] PCP - General Family Medicine 08/31/23 documented as of this encounter
--- OUTSIDE RECORDS SUMMARY | 2025-03-09 17:00 | XMS_ITS | Clinical Summary ---
Author Organization [facility] Address [address] [place] [address] Care Team Providers Care Lotus Notes Developer Name Role Phone Joanne Chino Primary Care Provider [phone] Allergies Active Allergy Reactions Criticality Noted Date [...] mouth at bed time. 03/03/20 24 Active Alcohol Prep Pads pads, medicated USE [...] (FOLVITE) 1 mg tablet 03/07/20 24 Active Trulance 3 mg tablet 04/29/19 [...] (AMBIEN) 10 mg tablet 06/14/19 25 Active upadacitinib ER (RINVOQ) 15 mg tabletIndications :Rheumatoid arthritis involving multiple sites with positive rheumatoid factor Take 1 tablet (15 mg total) by mouth once a day. 30 tablet 2 5 1:58 PM EST 01/02/20 25 026 Active hydroxychloroquin e (PLAQUENIL) 200 mg tablet TAKE 1 TABLET BY MOUTH TWICE DAILY EVERY MORNING AND EVERY EVENING 60 tablet 02/12/20 25 Active predniSONE (DELTASONE) 5 mg tablet Take 1 tablet (5 mg total) by mouth once a day. 1 tab daily 30 tablet 03/03/20 25 026 Active hydroxychloroquin e (PLAQUENIL) 200 mg tablet TAKE 1 TABLET BY MOUTH TWICE DAILY EVERY MORNING AND EVERY EVENING 60 tablet 12/05/19 25 025 Discontinued predniSONE (DELTASONE) 5 mg tablet Take 1.5 tablets (7.5 mg total) by mouth once a day. 2 tabs po daily for 6 weeks then continue 1 1/2 tab daily 45 tablet 1 01/08/20 25 025 Discontinued Active Problems No known active problems Encounters Date Type Department Care Team Description 03/06/2025 Refill [facility] [address] [place] [address] Etl Application Developer: Teresa Charles, PA 03/02/2025 Refill [facility] [address] [place] [phone] Etl Application Developer: Teresa Charles PA 02/04/2025 Refill [facility] [address] [place] [phone] Etl Application Developer: Teresa Charles PA 01/07/2025 Refill [facility] [address] [place] [phone] Etl Application Developer: Teresa Charles PA 01/06/2025 Refill [facility] [address] [place] [phone] Etl Application Developer: Teresa Charles PA 01/01/2025 Refill [facility] [address] [place] [phone] Etl Application Developer: Teresa Charles PA Rheumatoid arthritis involving multiple sites with positive rheumatoid factor 12/08/2024 Telephone [facility] [address] [place] [phone] Etl Application Developer: Chela Gabriel Telephone Intake, Staff PAC RX Refill from Last 3 Months Social History Tobacco [...] Sign Reading Time Taken Comments Blood Pressure 138/82 10/10/2024 1:31 PM EDT Pulse 82 10/10/2024 1:31 PM EDT Temperature 36.1 C (97 F) 10/10/2024 1:31 PM EDT Respiratory Rate - - Oxygen Saturation 98% 10/10/2024 1:31 PM EDT Inhaled Oxygen Concentration - - Weight 104.8 kg (231 lb) 10/10/2024 1:31 PM EDT Height 160 cm (5' 3 ) 10/10/2024 1:31 PM EDT Body Mass Index 40.92 10/10/2024 1:31 PM EDT Plan of Treatment Health Maintenance Due Date Last Done Comments Cervical Cancer Screening 1981 HIV Screening 1981 HPV and Pap Smear 1981 Pap Smear 1981 Varicella Vaccines (1 of 2 - 13+ 2-dose series) 1994 Hepatitis B Vaccines (1 of 3 - 19+ 3-dose series) 2000 DTaP,Tdap,and Td Vaccines (1 - Tdap) 07/01/2003 Mammogram 2021 Alcohol/Substance Use Screening 03/19/2024 Depression Screening and Follow-Up 03/19/2024 [employer] Annual Screening 03/19/2024 Influenza Vaccine (#1) 2024 , 12/27/2021, 01/09/2020, Additional history exists COVID-19 Vaccine ( - 2024- season) 2024 08/05/2020, 07/08/2020 Diabetes Screening 10/11/2027 10/10/2024, 0 08/04/2024, 07/22/2024, Additional history exists Pneumococcal Vaccine: Pediatric (0-5 Years) and At-Risk Patients (6-50 Years) Aged Out 12/18/2018, 2015 No longer eligibl e based on patient's age to complete this topic Hepatitis C Screening Completed 07/18/2024 Procedures * Due to [place] state law, this organization might not be sharing negative HIV tests. Procedure Name Priority Date/Time Associated Diagnosis Comments COMPREHENSIVE METABOLIC PANEL Routine 10/10/2024 3:09 PM EDT Rheumatoid arthritis involving multiple sites with positive rheumatoid factor (HCC) HEPATITIS PANEL, ACUTE Routine 05/02/202 5 2:38 PM EDT Rheumatoid arthritis involving multiple sites with positive rheumatoid factor (HCC) from Last 3 Months or Most Recently Relevant to Health Maintenance Results * Due to [place] state law, this organization might not be sharing negative HIV tests. * (ABNORMAL) Comprehensive metabolic panel (10/10/2024 3:09 PM EDT) NA 144 135 - 145 mmol/L 10/10/2024 4:13 PM EDT [facility] K 3.3(L) 3.5 - 5.3 mmol/L 10/10/2024 4:13 PM EDT [facility] Cl 108(H) 98 - 107 mmol/L 10/10/2024 4:13 PM EDT [facility] CO2 24 22 - 32 mmol/L 10/10/2024 4:13 PM EDT [facility] Anion Gap 12 5 - 15 10/10/2024 4:13 PM EDT [facility] Glucose 76 65 - 99 mg/dL 10/10/2024 4:13 PM EDT [facility] Creatinine 0.56 0.50 - 1.20 mg/dL 10/10/2024 4:13 PM EDT [facility] Calcium 9.0 8.6 - 10.5 mg/dL 10/10/2024 4:13 PM EDT [facility] Total Protein 7.3 6.0 - 8.0 g/dL 10/10/2024 4:13 PM EDT [facility] Albumin 4.1 3.5 - 5.2 g/dL 10/10/2024 4:13 PM EDT [facility] Bilirubin, Total 0.4 0.2 - 1.2 mg/dL 10/10/2024 4:13 PM T [facility] Alkaline Phosphatase 85 35 - 129 U/L 10/10/2024 4:13 PM EDT [facility] AST 38 10 - 40 U/L 10/10/2024 4:13 PM EDT [facility] ALT 39 10 - 40 U/L 10/10/2024 4:13 PM EDT [facility] BUN 7 7 - 23 mg/dL 10/10/2024 4:13 PM EDT [facility] eGFR >90 >=60 mL/min/1. 73m2 10/10/2024 4:13 PM EDT [facility] Comment:The estimated glomer [...] in Diagnosing Kidney Disease . Globulin, Total 3.2 2.1 - 4.2 g/dL 10/10/2024 4:13 PM EDT [facility] A/G Ratio 1.3(L) 1.5 - 3.0 10/10/2024 4:13 PM EDT [facility] Blood Structure of peripheral vein / Unknown Venipuncture / Unknown 10/10/2024 3:09 PM EDT 10/10/2024 3:41 PM EDT us Teresa MCKEON LAB BLOOD ORDERABLES Final Result [facility] [address] [place] [address], * Hepatitis Panel, Acute (07/18/2024 2:38 PM EDT) Hepatitis A IgM NON-REACT ALTAF NON-REACT ALTAF 07/19/2024 5:31 AM EDT [facility] Hepatitis B Surface Antigen NON-REACT ALTAF NON-REACT ALTAF 07/19/2024 5:31 AM EDT [facility] Hepatitis B Core Antibody NON-REACT ALTAF NON-REACT ALTFA 07/19/2024 5:31 AM EDT [facility] Hepatitis C Antibody NON-REACT ALTAF NON-REACT ALTAF 07/19/2024 5:31 AM EDT [facility] Comment: HCV antibody was non-reactive. There is no laboratory evidence of HCV infection. In most cases, no further action is required. However, if recent HCV exposure is suspected, a test for HCV RNA (test code 99203) is suggested. For additional information please refer to http://CartCrunch.NeGoBuY/faq/NAC39l5 (This link is being provided for informational/ educational purposes only.) For additional information, please refer to http://CartCrunch.NeGoBuY/faq/VNM383 (This link is being provided for informational/ educational purposes only.) Blood Structure of peripheral vein / Unknown Venipuncture / Unknown 07/18/2024 2:38 PM EDT 07/18/2024 3:13 PM EDT Narrative [facility] - 07/19/2024 5:31 AM EDT [facility] Received Date: Teresa MCKEON LAB BLOOD ORDERABLES Final Result [facility] [address], [place] [address], [place] [phone] [facility] [facility] [address], [place] [address], [place] [phone] from Last 3 Months or Most Recently Relevant to Health Maintenance Insurance [facility] [place] [id number] Care Teams Lotus Notes Developer Relationship Specialty Start Date End Date Joanne Chino [address] [place] [id number] PCP - General Family Medicine 04/03/24
--- OUTSIDE RECORDS SUMMARY | 2025-03-09 17:01 | XMS_ITS | Clinical Summary ---
Author Organization [employer] Address [address] [place] [address] Care Team Providers Care General Activities Therapist Name Role Phone Joanne Chino MARY Primary Care Provider Allergies Active Allergy Reactions Criticality Noted Date Comments Ceftriaxone 09/05/2022 Other reaction(s): pruritis without rash Medications * This document contains information received from the source organization and may not represent a complete record from that organization. cholecalciferol (Vitamin D-3) 50 MCG (1999 UT) capsule Take 1 capsule by mouth in the morning. 021 Active furosemide (Lasix) 40 MG tablet Take 1.5 tablets by mouth 1 (one) time each day. Active glucose blood (FREESTYLE LITE) test strip every 12 (twelve) hours. 020 Active Spacer/Aero-Hold ing Chambers (OptiChamber Mera) misc 1 each every 4 (four) hours if needed (asthma). 1 each 023 Active Nebulizers misc 1 each if needed in the morning, at noon, in the evening, and at bedtime (cough, wheezing). 1 each 023 Active sodium chloride (Huson Nasal [place]) 0.65 % nasal sprayIndications :Acute bacterial sinusitis 1-2 sprays on each nostril every 2-3 hours as needed for nasal congestion 30 mL 1 023 Active buPROPion (Wellbutrin) 100 MG tablet Take 1 tablet by mouth 2 times daily. 023 Active folic acid (Folvite) 1 MG tablet Take 1,000 mcg by mouth in the morning. 023 Active hydroxychloroqui ne (Plaquenil) 200 MG tablet Take 1 tablet by mouth 2 times daily. Active Rasuvo 15 MG/0.3ML solution auto-injector Inject 15 mg under the skin every 7 (seven) days. Active pantoprazole (ProtoNix) 40 MG EC tablet Take 1 tablet by mouth in the morning. Active Trulance tablet tablet Take 1 tablet by mouth in the morning. Active Entresto 24-26 MG tablet TAKE 1 TABLET BY MOUTH TWICE DAILY IN THE MORNING AND IN THE EVENING Active sertraline (Zoloft) 100 MG tablet Take 1 tablet by mouth in the morning. Active zolpidem (Ambien) 10 MG tablet Take 1 tablet by mouth if needed at bedtime. Active Multiple Vitamins-Mineral s (CENTRUM ADULT PO) Take 1 tablet by mouth 1 (one) time each day. OTC Active albuterol (2.5 MG/3ML) 0.083% nebulizer solution TAKE 1 AMPULE USING A NEBULIZER EVERY 6 HOURS NEEDED FOR WHEEZING OR SHORTNESS OF BREATH 90 mL 1 024 Active Ventolin HFA 108 (90 Base) MCG/ACT inhaler INHALE 2 PUFFS BY MOUTH EVERY 4 HOURS NEEDED FOR WHEEZING OR SHORTNESS OF BREATH 18 g 1 024 Active fluticasone (Flonase) 50 MCG/ACT nasal spray USE 1 SPRAY IN EACH NOSTRIL ONCE DAILY IN THE MORNING 48 g Active Linzess 290 MCG capsule Take 1 capsule by mouth in the morning. Active LORazepam (Ativan) 1 MG tablet Take 1 tablet by mouth if needed each day for anxiety. 024 Active Witch Rose (Hemorrhoidal Hygiene) 50 % pads USE DIRECTED Active busPIRone (Buspar) 15 MG tablet Active Alcohol Swabs (Alcohol Prep) 70 % padsIndications: Type 2 diabetes mellitus with unspecified complications (HCC) USE DIRECTED THREE TIMES DAILY 100 each 11 024 Active acarbose (Precose) 50 MG tabletIndication s:Postsurgical malabsorption, not elsewhere classified TAKE 1 TABLET BY MOUTH THREE TIMES DAILY 90 tablet Active ferrous gluconate (Fergon) 324 (38 Fe) MG tabletIndication s:Iron deficiency anemia, unspecified iron deficiency anemia type Take 1 tablet (324 mg) by mouth every other day. 15 tablet 11 025 2025 Active naloxone (Narcan) 4 mg/0.1 mL nasal sprayIndications :Chronic pain syndrome Administer 1 spray (4 mg) into affected nostril(s) if needed for opioid reversal. 2 each Active gabapentin (Neurontin) 300 MG capsule Take 1 capsule (300 mg) by mouth 2 times daily. And 800 mg at bed time 60 capsule 11 03/06/20 25 4:55 PM EST 2025 Active simvastatin (Zocor) 20 MG tablet TAKE 1 TABLET BY MOUTH AT BEDTIME 90 tablet 3 Active spironolactone (Aldactone) 25 MG tablet TAKE 1 TABLET BY MOUTH EVERY EVENING 30 tablet Active TRUEplus Lancets [facility] USE DIRECTED TO TEST BLOOD SUGAR THREE TIMES DAILY 100 each 11 02/26/20 25 9:39 AM EST Active Zepbound 2.5 MG/0.5ML solution auto-injector INJECT 0.5 ML (2.5 MG) UNDER THE SKIN 1 (ONE) TIME PER WEEK. 2 mL 02/26/20 25 9:39 AM EST Active metoprolol tartrate (Lopressor) 25 MG tabletIndication s:Benign hypertension TAKE 1 AND 1/2 TABLETS BY MOUTH TWICE DAILY IN THE MORNING AND IN THE EVENING 270 tablet 1 Active oxyCODONE (Roxicodone) 5 MG immediate release tabletIndication s:Chronic pain syndrome Take 2 tablets (10 mg) by mouth every 8 (eight) hours if needed for severe pain. Do not start before February 25, 2025. 168 tablet 02/26/20 25 9:39 AM EST 025 2025 Active gabapentin (Neurontin) 800 MG tabletIndication s:Chronic pain syndrome,Rheumat oid arthritis involving multiple sites with positive rheumatoid factor (CMS/HCC) (HCC) TAKE 1 TABLET BY MOUTH DAILY AT BEDTIME 30 tablet 03/06/20 25 4:55 PM EST Active Polyethylene Glycol 3350 (PEG 3350) 17 GM/SCOOP powder MIX 17 GRAMS WITH BEVERAGE AND DRINK ONCE DAILY. CAN INCREASE TO 2 OR 3 TIMES A DAY NEEDED FOR CONSTIPATION Active sucralfate (Carafate) 1 GM/10ML suspension Take 1 g by mouth before breakfast, before lunch, before evening meal, and at bedtime. Active Rinvoq 15 MG tablet sustained-releas e 24 hour Take 1 tablet by mouth Once per day. Active Trintellix 10 MG tablet Take 1 tablet by mouth Once per day. Active acetaminophen (Tylenol Extra Strength) 500 MG tablet Take 1 tablet (500 mg) by mouth every 6 (six) hours if needed for mild pain for up to 10 days. 30 tablet 03/09/20 3:57 PM EST 2025 Active ondansetron (Zofran) 4 MG tabletIndication s:Pain Take 2 tablets (8 mg) by mouth every 8 (eight) hours if needed for nausea or vomiting for up to 7 days. 20 tablet 03/09/20 3:57 PM EST 2025 Active docusate sodium (Colace) 100 MG capsule Take 1 capsule (100 mg) by mouth Once per day. 30 capsule 1 03/09/20 3:57 PM EST 2025 Active bisacodyl (Dulcolax) 5 MG EC tablet Take 1 tablet (5 mg) by mouth if needed each day for constipation. Do not crush, chew, or split. 30 tablet 03/09/20 3:57 PM EST 2025 Active polyethylene glycol, PEG, 3350 (MiraLax) 17 GM/SCOOP powder Take 17 g by mouth Once per day. 510 g 03/09/20 3:57 PM EST 2025 Active azithromycin (Zithromax) 250 MG tablet Take 2 tablets (500 mg) by mouth Once per day for 1 day, THEN 1 tablet (250 mg) Once per day for 4 days. 6 tablet 12/22/20 25 3:57 PM EST 025 2024 Active Simponi 50 MG/0.5ML solution auto-injector Inject 50 mg under the skin every 30 (thirty) days. 024 2024 Discontinued(M ed list cleanup (will not trigger notification to Pharmacy)) methylPREDNISolo ne (Medrol) 8 MG tablet Take 1 tablet by mouth Once per day. 024 2024 Discontinued(M ed list cleanup (will not trigger notification to Pharmacy)) metoprolol tartrate (Lopressor) 25 MG tabletIndication s:Benign hypertension TAKE 1 & 1/2 TABLETS BY MOUTH TWICE DAILY EVERY MORNING AND EVERY EVENING 90 tablet 025 2024 Discontinued Tirzepatide-Weig ht Management 2.5 MG/0.5ML solution auto-injector Inject 0.5 mL (2.5 mg) under the skin 1 (one) time per week. 2 mL 1 01/31/20 4:46 PM EST 2024 Discontinued gabapentin (Neurontin) 800 MG tabletIndication s:Chronic pain syndrome,Rheumat oid arthritis involving multiple sites with positive rheumatoid factor (CMS/HCC) ([facility]) TAKE 1 TABLET BY MOUTH DAILY AT BEDTIME 30 tablet 02/10/20 25 4:42 PM EST 025 2024 Discontinued oxyCODONE (Roxicodone) 5 MG immediate release tabletIndication s:Chronic pain syndrome TAKE 2 TABLETS (10 MG) BY MOUTH EVERY 8 (EIGHT) HOURS IF NEEDED FOR SEVERE PAIN. 42 tablet 02/17/20 25 9:10 AM EST 025 2024 Discontinued(R eorder (will not trigger notification to Pharmacy)) Active Problems Problem Noted Date Diagnosed Date Severe depression (CMS/HCC) 11/25/2024 Breast screening 10/20/2024 Morbid obesity (CMS/HCC) 10/20/2024 Assessment & Plan (11/13/2024 5:01 PM EDT): Severely limited rom due to pain with ambulation, and RA, in care with reumatology No hx of thyroid medullary cancer, Interested in wt loss, has had gastric bypass Tinea 10/20/2024 Assessment & Plan (11/13/2024 5:02 PM EDT): Rx as written below Long-term current use of opiate analgesic 2024 Chronic fatigue 08/01/2024 Hyperglycemia 07/24/2024 Assessment & Plan (11/13/2024 5:00 PM EDT): Secondary to prednisone, Iron deficiency anemia 07/24/2024 Assessment & Plan (08/11/2024 5:36 PM EDT): On iron, completed colonosopy, currently on meds from GI, once course is completed, change to every other day iron as prescribed today, Call into GI Repeat cbc ordered If anemia not improved, referral to hematology Non-restorable tooth 03/28/2024 Dietary counseling 03/21/2024 Assessment [...] 08/02/2023 Bilateral ovarian cysts 09/05/2022 Nonischemic cardiomyopathy (CMS/HCC) 09/05/2022 Severe obesity (CMS/HCC) 09/05/2022 Assessment & Plan (03/21/2024 5:44 PM [...] mellitus, type 2) 10/28/2015 Assessment & Plan (03/09/2025 1:32 PM EST): Orders: POCT Glucose Assessment & Plan (11/25/2023 3:40 PM EDT): Hgb A1c at goal 6.1 % Diet controlled Rheumatoid arthritis ([facility]/HCC) 10/28/2015 Overview (08/11/2024): Plan for biologic, improved symptoms in 3-6 months after starting If increased pain, use prednisone burst/per rheumatology at [facility] Assessment & Plan (11/13/2024 5:03 PM EDT): Severely limited mobility, would benefit from bedside commode Assessment & Plan (08/11/2024 5:37 PM EDT): Call into [facility] team regarding pain management At this time team feels pain is likely chronic but if flares are contributing to pain consider burst of steroids. Discussed this plan with pt Assessment & Plan (07/14/2024 9:50 AM EDT): [...] Nausea and vomiting 08/02/2023 03/21/19 25 Encounters * This document contains information received from the source organization and may not represent a complete record from that organization. Date Type Department Care Team Description 03/09/2025 1:15 PM EST Office Visit [facility] [address] [place] [phone] Joanne Chino NP Type 2 diabetes mellitus with hyperosmolarity without coma, without long-term current use of insulin (HCC) (Primary Dx); Hernia of abdominal wall; Acute non-recurrent frontal sinusitis 03/09/2025 Telephone [facility] [address] [place] [phone] Joanne Chino NP Appointment Request 03/09/2025 Orders Only [address] [address] Joanne Chino NP Other constipation (Primary Dx) 03/09/2025 Travel 03/02/2025 Refill [facility] [address] [place] [address] Joanne Chino NP Chronic pain syndrome; Rheumatoid arthritis involving multiple sites with positive rheumatoid factor (CMS/HCC) (HCC) 02/26/2025 Telephone [facility] [address] [place] [address] Joanne Chino NP Medication Question 02/26/2025 Telephone [facility] [address] [place] [address] Franca Murillo, RN WASTEWATER TREATMENT ENGINEER Appt 02/26/2025 Telephone [facility] [address] [place] [phone] Joanne Chino NP Appointment Request 02/24/2025 Patient Outreach [facility] [address] [place] [phone] Joanne Chino NP Transition Of Care (Tcm) (HDF- scheduled and SDOH screening completed on 08/25/2024) 02/24/2025 Telephone [facility] [address] [place] [phone] Joanne Chino NP Hospital Follow-up 02/23/2025 Refill [facility] [address] [place] [phone] Joanne Chino NP Chronic pain syndrome 02/23/2025 Refill [facility] [address] [place] [phone] Joanne Chino NP Benign hypertension 02/23/2025 Telephone [facility] [address] [place] [phone] Franca Murillo RN Cancelled [employer]ASTEWATER TREATMENT ENGINEER RV 02/19/2025 Refill [facility] [address] [place] [address] Joanne Chino NP 02/10/2025 Telephone [facility] [address] [place] [phone] Joanne Chino NP Call Back Request 02/06/2025 Refill [facility] [address] [place] [phone] Joanne Chino NP Chronic pain syndrome 02/04/2025 Refill [facility] [address] [place] [address] Joanne Chino NP Chronic pain syndrome; Rheumatoid arthritis involving multiple sites with positive rheumatoid factor (CMS/HCC) ([facility]) 01/21/2025 Refill [facility] [address] [place] [address] Joanne Chino NP 01/13/2025 Patient Outreach [facility] [address] [place] [address] Joanne Chino NP Pre-visit Planning ([facility] unable to reach [facility] ) 01/07/2025 Refill [facility] [address] [place] [address] Joanne Chino NP Chronic pain syndrome 12/24/2024 Refill [facility] [address] [place] [address] Joanne Chino NP 12/24/2024 Refill [facility] [address] [place] [address] Joanne Chino NP 12/22/2024 Refill [facility] [address] [place] [address] Name, MD Juan Pablo Chronic pain syndrome; Rheumatoid arthritis involving multiple sites with positive rheumatoid factor (CMS/HCC) ([facility]); Benign hypertension 12/22/2024 Refill [facility] [address] [place] [address] Joanne Chino NP 12/09/2024 Refill [facility] [address] [place] [address] Joanne Chino NP Chronic pain syndrome 12/08/2024 Telephone [facility] [address] [place] [address] Joanne Chino NP Durable Medical Equipment from Last 3 Months Immunizations Immunization Administration Dates Next Due Influenza Injectable Quadriv alant Preservative Free IIV4 MDCK 12/22/2022 Influenza injectable quadriv alent IIV4 with preservative 01/02/2018,01/28/2016 Influenza injectable quadriv alent preservative free 12/27/2021,01/09/2020,12/09/2018,12/20 Influenza, IIV3, injectable 01/21/2025, 6 Moderna Covid-19 Vaccine 12+ 08/05/2020,07/09/19 21 Pneumococcal [...] Mass Index 39.24 03/09/2025 1:05 PM EST Plan of Treatment Upcoming Encounters Date Type Department Care Team (Late st Contact Info) Description 03/30/2025 1:00 PM EST Office Visit [facility] [address] [place] [address] Eduardo, Puja, OD [address] [place] [address] 04/02/2025 10:30 AM EST Clinical Support [facility] [address] [place] [address] Franca Murillo RN 07/20/2025 12:45 PM EDT Office Visit [facility] [address] [place] [address] Sri Lara [address] [place] [address] Health Maintenance Due Date Last Done Comments HIV Screening 1981 Diabetes: Foot Exam 07/01/1991 Family Planning (PISQ) 1996 HPV Vaccines (1 - 3-dose series) 1996 Hepatitis C Screening 07/01/1999 DTaP/Tdap/Td Vaccines (1 - Tdap) 2000 Hepatitis B Vaccines (1 of 3 - 19+ 3-dose series) 2000 Pneumococcal Vaccine: Pediatrics (0 to 5 Years) and At-Risk Patients (6 to 49) Years (2 of 2 - PCV) 12/19/2019 12/18/2018, 2015 Diabetes: Urine Protein Screening 06/24/2023 06/23/2022, 09/10/2020 Mammogram 08/30/2023 08/29/2021, 08/29/2021 Dental Oral Exam 07/22/2024 01/22/2024, 02/2017, 06/15/2016 Dental Prophylaxis 07/22/2024 01/22/2024, 0 08/28/2017, 02/27/2017, Additional history exists Lipid Panel 08/30/2024 08/31/2023, 04/0 08/2022, 11/04/2021, Additional history exists COVID-19 Vaccine ( season) 2024 08/05/2020, 07/08/2020 Dental X-Ray: Bitewings 01/22/2025 01/22/2024, 06/15 Diabetes: Hemoglobin A1C 04/22/2025 025, 08/04/2024, 03/21/2024, Additional history exists Depression Monitoring 05/25/2025 11/25/2024, 025 Disability Screening 07/22/2025 07/22/2024 SDOH Screening 08/25/2025 08/25/2024 Alcohol/Substance Use Screening 10/20/2025 10/20/2024 Eye Exam 01/09/2026 01/10/2024, 12/18, 01/10/2024, Additional history exists Tobacco Screening 03/09/2026 03/09/2025 Dental X-Ray: Full Mouth 01/22/2027 024, 07/27/2016, 06/15/2016 Zoster Vaccines (1 of 2) 07/01/2031 RSV Patients and Patients Aged 60 years or older (1 - 1-dose 75+ series) 2056 Cervical Cancer Screening Discontinued HPV/Cotest Discontinued 06/07/2016 Influenza Vaccine Completed 01/21/2025, , 12/27/2021, Additional history exists HIB Vaccines Aged Out No longer eligi [...] on patient's age to complete this topic Pap Smear Discontinued RSV under 20 months Aged Out No longe r eligible based on patient's age to complete this topic Rotavirus Vaccines Aged Out No longer eligible based on patient's age to complete this topic Goals Goal Patient Goal Type Associated Problems [...] blood pressure task No Juan Pablo Stacy Patient has chronic kidney disease Care Plan Patient has chronic kidney disease No Regis [place] Patient has chronic kidney disease Care Plan [...] Care Plan Weekly blood pressure task No SantiaSampson jennings Patient has chronic kidney disease Care Plan [...] Care Plan Weekly blood pressure task No Graef Joanne, SUSTAINMENT LOGISTICS ANALYST Weekly blood pressure task Care Plan Weekly blood pressure task No Graef Joanne, SUSTAINMENT LOGISTICS ANALYST Patient has chronic kidney disease Care Plan Patient has chronic kidney disease No Graef Joanne, SUSTAINMENT LOGISTICS ANALYST Patient has chronic kidney disease Care Plan Patient has chronic kidney disease No SandrineefKelleJoanne, SUSTAINMENT LOGISTICS ANALYST Weekly blood pressure task Care Plan Weekly blood pressure task No Graef Joanne, SUSTAINMENT LOGISTICS ANALYST Weekly blood pressure task Care Plan Weekly blood pressure task No Graef Joanne, SUSTAINMENT LOGISTICS ANALYST Patient has chronic kidney disease Care Plan Patient has chronic kidney disease No GraefKelleJoanne, SUSTAINMENT LOGISTICS ANALYST Patient has chronic kidney disease Care Plan Patient has chronic kidney disease No Joanne Chino, SUSTAINMENT LOGISTICS ANALYST Weekly blood pressure task Care Plan Weekly blood pressure task No Nichole Reddy RN Weekly blood pressure task Care Plan Weekly blood pressure task No Nichole Reddy RN Patient has chronic kidney disease Care Plan Patient has chronic kidney disease No Nichole Reddy RN Patient has chronic kidney disease Care Plan Patient has chronic kidney disease No Nichole Reddy RN Procedures Procedure Name Priority Date/Time Associated Diagnosis Comments COMPREHENSIVE METABOLIC PANEL Routine 03/09/2025 2:32 PM EST Hernia of abdominal wall CBC WITH AUTO DIFFERENTIAL Routine 03/09/2025 1:42 PM EST Hernia of abdominal wall Acute non-recurrent frontal sinusitis POCT GLUCOSE (CPT-82850) Routine 03/09/2025 1:06 PM EST Type 2 diabetes mellitus with hyperosmolarity without coma, without long-term current use of insulin (HCC) HEMOGLOBIN A1C Routine 10/20/2024 2:16 PM EDT Neuropathy PROPHYLAXIS - ADULT Routine 01/22/2024 1 1:00 [...] coma, without long-term current use of insulin ([facility]) HM MAMMOGRAPHY Routine 08/29/2021 ZZZ HISTORICAL HPV MRNA E6/E7 Routine 06/07/2016 10:25 AM EDT from Last 3 Months or Most Recently Relevant to Health Maintenance Results * (ABNORMAL) Comprehensive Metabolic Panel (03/09/2025 2:32 PM EST) Sodium 142 135 - 145 mmol/L [facility] Potassium 3.1(L) 3.3 - 5.1 mmol/L [facility] Chloride 107 96 - 108 mmol/L [facility] Carbon Dioxide 27 22 - 29 mmol/L [facility] Anion Gap 11(L) 12 - 20 [facility] Urea Nitrogen (BUN) 5(L) 9 - 16 mg/dL [facility] Creatinine, Serum 0.53 0.5 - 1.4 mg/dL [facility] Estimated Glomerular Filt Rate >60 [facility] Comment:Chronic Kidney Disea se: Estimated GFR < 60 mL/min/1.08h2Eahlww Kidney Disease: Estimated GFR < 15 mL/min/1.73m2 Glucose 108 60 - 115 mg/dL [facility] Calcium 8.7 8.4 - 10.2 mg/dL [facility] Bilirubin, Total 0.3 0.0 - 1.0 mg/dL [facility] Aspartate Amino Transferase 51(H) 5 - 31 U/L [facility] Alanine Aminotransferase 56(H) 0 - 31 U/L [facility] Total Protein 7.1 6.5 - 8.0 g/dL [facility] Albumin Level 4.0 3.5 - 5.0 g/dL [facility] Alkaline Phosphatase 112 39 - 117 U/L [facility] Blood Venous blood specimen / Unknown 03/09/2025 2:32 PM EST 03/09/2025 3:57 PM EST us Joanne Chino NP LAB BLOOD ORDERABLES Final Resul t [facility] [address] [place] [phone] [phone] * (ABNORMAL) CBC auto differential (03/09/2025 1:42 PM EST) White Blood Count 7.1 4.8 - 10.8 X10*3/uL [facility] Red Blood Count 3.84(L) 4.20 - 5.50 X10*6/uL [facility] Hemoglobin 10.4(L) 12.0 - 16.0 g/dl [facility] Hematocrit 34.1(L) 37.0 - 47.0 % [facility] Mean Corpuscular Volume 88.8 80.0 - 98.0 fL [facility] Mean Corpuscular Hemoglobin 27.1 27.0 - 33.0 pg [facility] Mean Corpuscular HGB Conc 30.5(L) 31.0 - 35.0 g/dl [facility] Red Cell Distribution Width 16.3(H) 11.0 - 16.0 % [facility] Platelet Count 330 160 - 400 X10*3/uL [facility] Mean Platelet Volume 10.1 9.4 - 12.3 fL [facility] Neutrophils Percent Auto 76.4(H) 45 - 73 % [facility] Imm Gran Pct Auto 0.3 0.0 - 0.4 % [facility] Lymphocytes Percent Auto 13.7(L) 20 - 40 % [facility] Monocytes Percent Auto 8.1 2 - 11 % [facility] Eosinophils Percent Auto 1.1 0 - 4 % [facility] Basophils Percent Auto 0.4 0 - 2 % [facility] NRBC Pct Auto 0.0 0.0 - 0.2 /100WBC [facility] Neutrophils Absolute Auto 5.4 2.0 - 8.3 x10*3/uL [facility] Imm Gran Abs Auto 0.02 0.00 - 0.03 X10*3/uL [facility] Lymphocytes Absolute Auto 1.0(L) 1.2 - 4.9 X10*3/uL [facility] Monocytes Absolute Auto 0.6 0.1 - 1.2 X10*3/uL [facility] Eosinophils Absolute Auto 0.1 0.0 - 0.4 X10*3/uL [facility] Basophils Absolute Auto 0.0 0.0 - 0.2 X10*3/uL [facility] NRBC Abs Auto 0.000 0.0 - 0.012 X10*3/uL [facility] Blood Venous blood specimen / Unknown 03/09/2025 1:42 PM EST 03/09/2025 3:57 PM EST Joanne Chino NP LAB BLOOD ORDERABLES Final Resul t [facility] [address] [place] [phone] * POCT Glucose (03/09/2025 1:06 PM EST) Glucose Blood, POC 121 60 - 200 mg/dL QC Media Lot # [id number] Lot# Expiration Date [id number] Blood Capillary blood specimen / Unknown 03/09/2025 1:06 PM EST Joanne Chino NP POINT OF CARE TEST ENTER/EDIT OR DERABLES Final Result * Hemoglobin A1c (10/20/2024 2:16 PM EDT) Hemoglobin A1c 5.8 <6.0 % [facility] Comment:Hemoglobin A1C Refer ence Range Adults: 4.8 - 6.0 % Non diabetic: < 6.0 % Goal: < 7.0 %Additional Action Suggested: > 8.0 %Note: Hemoglobin A1c results are invalid for patients with abnormal amounts of HbF. Blood transfusions may impact the HbA1c concentration in the patient sample. Estimated Average Glucose 120 mg/dL [facility] Comment:eAG = Estimated ave rage glucose which is %A1C expressed asaverage glucose, using the formula of the [id number] Glucose study (ADAG), Diabetes Care, Vol.31,#8,Oct. 2007 Blood Venous blood specimen / Unknown 10/20/2024 2:16 PM EDT 10/20/2024 4:11 PM EDT Joanne Chino SUSTAINMENT LOGISTICS ANALYST LAB BLOOD ORDERABLES Final Resul t [facility] [address], [place] [phone] * Lipid Panel, Standard (08/31/2023 3:24 PM EDT) Triglycerides 75 <150 mg/dL [facility] Comment:Desirable Triglyceri de: less than 150 mg/dLBorderline High Triglyceride 150-199 mg/dLHigh Triglyceride: 200-499 mg/dLVery High Triglyceride: greater than or equal to 5OO mg/dL Cholesterol 172 <200 mg/dL [facility] Comment:Desirable Cholestero l: less than 200 mg/dLBorderline High Cholesterol: 200-239 mg/dLHigh Cholesterol: greater than 239 mg/dL LDL Cholesterol Calculated 88 <100 mg/dL [facility] Comment:Desirable LDL: less than 100 mg/dLNear Optimal/Above Optimal LDL: 110- 129 mg/dLBorderline High LDL: 130-159 mg/dLHigh LDL: 160-189 mg/dLVery High LDL: greater than or equal to 190 mg/dL HDL Cholesterol 69 >40 mg/dL [facility] Comment:Desirable HDL: great er than 40 mg/dL Note: This HDL assay may give artificially low results in patients with liver disease. Blood Venous blood specimen / Unknown 08/31/2023 3:24 PM EDT 08/31/2023 4:11 PM EDT [employer] [facility] BLOOD ORDERABLES Final Resu lt Performing Organization Address City/[facility]/ZIP Co de Phone Number [facility] [address] [place] [address] [phone] * Albumin, Random Urine W/O Creatinine (06/23/2022 8:17 AM EDT) Albumin, Urine 1.2 See Note: mg/dL [employer] Comment: Reference Range: Reference Range Not established [employer] Comment: The ADA defines abnormalities in albumin excretion as follows: Albuminuria Category Result (mcg/mg creatinine) Normal to Mildly increased <30 Moderately increased 30-299 Severely increased > OR = 300 The ADA recommends that at least two of three specimens collected within a 3-6 month period be abnormal before considering a patient to be within a diagnostic category. Urine Urine specimen obtained by clean catch procedure / Unknown 06/23/2022 8:17 AM EDT 06/23/2022 8:18 AM EDT Narrative [facility] - 06/23/2022 8:20 PM EDT SPLIT 06/22/2022 FROM [id number] [facility] LAB URINE ORDERABLES Final Resu lt [facility] [address], [place] [address] [facility] [employer] [address] [place] [address] * Hm Mammography (08/29/2021) Mammogram Performed Comment:BI RADS 1 recommende d routine annual screening Anatomical Region Laterality Modality Other Historical Provider HEALTH MAINTENANCE Edited Result - Final * HPV mRNA E6/E7 (06/07/2016 10:25 AM EDT) HPV mRNA E6/E7 Not Detected NOT DETECTED [facility] Comment: This test was performed using the APTIMA(R) HPV Assay ([employer] This assay detects E6/E7 viral messenger RNA (mRNA) from 14 high-risk HPV types (16,18,31,33,35,39,45,51, 52,56,58,59,66,68). For additional information please refer to: http://education.Viddler/faq/DSZ337a8 (This link is being provided for informational/ educational purposes only.) Test Performed by MipsoStephanie, [facility], [address] [place] [id number] Eliu Castillo M.D., Ph.D., Director of Laboratories , [facility] [id number] Please note: Effective 11/29/2015, HPV testing will be performed using [employer]'s APTIMA test which targets mRNA. Detecting mRNA instead of DNA, as in older methods, offers significant improvements in specificity. 06/07/2016 10:2 5 AM EDT Marley Phelps CNM HISTORICAL/NON ORDERABLE LABS Final Result [facility] [address] from Last 3 Months or Most Recently Relevant to Health Maintenance Additional Health Concerns Active Problems Noted Date [...] 03/09/2025 Patient has chronic kidney disease 03/09/2025 Insurance [facility] ONE CARE < 65 [facility] Care Teams General Activities Therapist Relationship Specialty Start Date End Date Joanne Chino NP [address] [place] [phone] PCP - General Family Medicine 08/31/23
--- OUTSIDE RECORDS SUMMARY | 2025-03-09 17:01 | XMS_ITS | Encounter Summary ---
Author Organization [facility] Address [address] [place] [address] Care Team Providers Care Family Centered Specialist Name Role Phone Joanne Chino Primary Care Provider [phone] Reason for Visit * Reason Comments Med Refill Encounter Details Date Type Department Care Team (Late st Contact Info) Description 03/06/2025 Refill [facility] [address] [place] [address] Elevator Conductor: Teresa Charles PA [address] [place], [place] [phone] Social History Tobacco Use Types Packs/Day Years [...] encounter Miscellaneous Notes * Telephone Encounter - Laura Campos LPN - 03/06/2025 2:14 PM EST Refill request received for Requested Prescriptions Pending Prescriptions Disp Refills hydroxychloroquine (PLAQUENIL) 200 mg tablet [Pharmacy Med Name: HYDROXYCHLOROQUINE SULFATE 200 MG TABLET] 60 tablet 0 Sig: TAKE 1 TABLET BY MOUTH TWICE DAILY EVERY MORNING AND EVERY EVENING Patients next appointment with clinic Visit date not found No future appointments. Last Rx sent in on 02/11/25 w/ 0 refills Labs last done on 10/10/24 documented in this encounter Plan of Treatment Not on file documented as of this encounter Visit Diagnoses Not on filedocumented in this encounter Care Teams Family Centered Specialist Relationship Specialty Start Date End Date Joanne Chino [address] [place] [phone] PCP - General Family Medicine 04/03/24 documented as of this encounter
--- OUTSIDE RECORDS SUMMARY | 2025-03-09 17:01 | XMS_ITS | Continuity of Care Document ---
Author Name [facility], Medical Address [address] [place] [address] Organization Unknown Address [address] [place] [address] Medications No known medications Problems No known problems
--- OUTSIDE RECORDS SUMMARY | 2025-03-09 17:01 | XMS_ITS | Continuity of Care Document ---
Author Organization [employer] [facility], [facility] Address [address] [place] [address] Care Team Providers Care Locomotive Engineer Diesel Name Role Phone HIM CCA OTHER Assessment Encounter Date Assessment Date Assessment LastModified by Organization Details LastModified Time 01/18/2025 01/18/2025 I have reviewed and agree with the assessment and plan as documented by the exercise specialist. I provided real time medical direction for this encounter and was immediately available to provide additional phone based assistance as needed. History as noted by exercise specialist. Pt with history of Hypertension, Coronary Artery [...] will arrange for EMS transport to the [facility] ED and I call an expect to the [facility] ED triage line as well. [email or web address] Not available 01/18/2025 12:31:54 Plan of Treatment Reminders Order Date Submit Date Provider Last Modified By Organization Details Last Modified Time Details Appointments None recorded. Lab urinalysis , dipstick 2024 025 [facility], [address] [facility], [place], [address] 5 13:36:17 Referral None recorded. Procedures None recorded. Surgeries None recorded. Imaging None recorded. Medication Orders None recorded. Patient TargetsNo targets recorded. Patient InstructionsNo instructions recorded. Reason for Referral None Reported. Results Created Date Observation Date Name Description Value Unit Range Abnormal Flag Note LastModifiedBy Organization Detail LastModifiedTime Result Notes None recorded. Medical Equipment None Reported. Allergies Allergen ID Allergen Name Allergen Category Reaction Reaction Severity Criticality Documentation Date Start Date Code Code System Note Provider Name and Address Organization Details Recorded Time 6663 ceftriaxo ne medicatio n Not available Not available Not available 01/06/2024 219 RxNorm Not Available [facility] - production 4 [...] Available No t Available Vitals Date Recorded Oxygen saturation Respiratory rate Heart rate Body height Body weight Body temperature Systolic And Diastolic Provider Name and Address Organization Details Last Updated DateTime 5 98 % 19 /min 112 /min 160.02 cm 073949. 344 g 97.9 [degF] 159/92 mm[Hg] Not Available Web and Rank - production 5 12:07:47 Social History None recorded. Functional Status None recorded. Mental Status None recorded. Family History Nothing Reported. Medical History No medical history recorded. Gynecological HistoryNo gynecological history recorded. Obstetrics History GPAL:G 0 P 0 0 0 0 Past Encounters Encounter ID Performer Location Encounter Start Date Encounter Closed Date Diagnosis/Indication Diagnosis SNOMED-CT Code Diagnosis ICD10 Code Diagnosis IMO Codes Diagnosis Note [id number] Leo Hanson MD [facility] ED Medical [facility] [address] [place] [address] 01/18/2025 12:07:41 01/20/2025 15:37:22 Left flank pain 817909351 R10.A2 249958 Urinary symptoms 4730289 08 R39.9 [id number] Health Concerns Section Related Observation LastModified by Organization Detai ls LastModified Time None Recorded Concern Status LastModified by Organization Details LastModified Time None Recorded Payers Encounter Date Sequence Insurance Name Policy Number Policy Multani Covered Member ID Multani Member ID Guarantor Name 01/18/2025 1 [facility] - DOS ON OR AFTER 2022 - DUAL ELIGIBLE - [employer] OPTIONS AND ONE CARE (MEDICARE REPLACEMENT/ADV ANTAGE - HMO) Gita Francis [id number] Gita Francis Notes Date Note Type Note Provider Name and Address Organization Details Recorded Time 01/18/2025 text/html ROS as noted in the HPI This was a supervised home visit with exercise specialist Daina Green. CRC Nurse Triage Notes (Kathy [...] Failure, Diabetes Mellitus Type 2PMH Reviewed at 01/18/2025:59Allergies Reviewed at 01/18/2025:59Comments: 44 y.o female complains of Abdominal Pain, [...] signs of when to seek emergency care. Cigarette And Filter Chief Inspector Organization Information for Daina Green Legal Name: [facility] s: [address] [facility], JORI Davidson [address], Medical Director: Altaf Conklin [facility] No.: [id number] Cigarette And Filter Chief Inspector POC Test Results from Daina Grene Urine Dipstick (12:04:27)Urine leukocytes: +LEUUrine nitrites: -NITUrine urobilinogen: 0.2UROUrine protein: 15PROUrine pH: 5.0pHUrine blood: +BLOUrine specific gravity: 1.02SGUrine ketones: -KETUrine bilirubin: -BILUrine glucose: -GLUAttachments uploaded as part of this test result can be found under Documents section. .................... .................... .................... .................... .................... .................... .................... . Cigarette And Filter Chief Inspector Note From Daina Green: Patient Chief complained today of lower left quadrant abdominal pain which is going into her back as well as burning upon urination with an malodorous smell. Patient expresses that all signs and symptoms have been occurring for approximately one week prior to [facility] arrival today. Patient notes that pain in [...] upon auscultations. Upon inspection of the abdomen [facility] provider notes, no signs of trauma/ deformity/ bleeding. Upon palpation, pain is noted to be in the lower left quadrant, no Rigidity to the abdomen wall and or guarding, no CVA tenderness noted. No new and or worsening noted. Lower extremity edema. Patient is MOBLEY* 4. With the GCI score of 15. POC urinalysis notes positivity for leukocytes as well as blood. [facility] leo hanson consulted. Patient is informed that due to findings it would be in her best interest to be seen at a facility of higher care today for for imaging that cannot be done in home. Patient fully agrees. [facility] calls ahead to [facility] while [facility] provider initiates emergency services for transport. Upon arrival of emergency services. [facility] S crew [facility] provider transfers patient care as well as full report to S providers. Patient is transported to [facility] priority 1. [facility] Lab Orders: urinalysis, dipstick: Performed .................... .................... .................... .................... .................... .................... .................... . [facility] Consulted: Leo Hanson .................... .................... .................... .................... .................... .................... .................... . Disposition: Fulfilled Leo Hanson MD [address] [place] [address],[address] [facility], [place], [address], [email or web address] 01/18/2025 13:31:36 OBGyn Episode No OBEpisode recorded.
--- OUTSIDE RECORDS SUMMARY | 2025-03-09 17:01 | XMS_ITS | Encounter Summary ---
Author Organization [facility] Address [address] [place] [address] Encounters * CPT with Medical [facility] at [facility] on 2025-02-18 { reasonForRequest : Pt doest feel well, pain on left side in kidney area, urine hasvery foul smell , patientReports : Painful urination; Frequent and increased urination with flank pain; Painful urination with or without fever , denies :[ Unable to void greater than 5 hours , Erection that will not go away after 2 hours ,"Fall or trauma that results in urinary incontinence in the setting of pain , Fall or injury that results in incontinence in the absence of pain , Lower back pain either unilateral or bilateral, unable to void, painful urination -hematuria , Inability to fully empty garry dder ], chiefComplaints : Urinary Symptoms , pmh : Hypertension, Coronary Artery Disease, Congestive Heart Failure, Diabetes Mellitus Type 2, Urinary Tract Infe ctions (UTI) , allergies : Ceftriaxone , otherAllergies :null,&qu ot;painAssessment : , visitOutcome : , additionalComments": 44 y.o female complains of Urinary Symptoms\nPatient self referring\nsymptoms for the last few days\ndenies fever, endorses chills and body aches\nendorses lower abdomen and flank pain\nurgency and painful urination \ndark yellow and odoriferous.\nendorses nausea, no vomiting or loose stool.\nno kidney issues and denies any blood thinner use. \nrequesting inst[facility] visit. \n\nI provided i nformation on the mobile health provider response time and advised the patient and/or caregiver to monitor reported signs and symptoms. I discussed the warning signs of when to seek emergency care."} [facility] makes pt contact a 44 yo F CC of uti like symptoms and back pain. [facility] obtains vital signs. PT is in 10/10 pain on arrival and a hx of kidney infection recently with similar symptoms that are worse then before. [facility] contacts 911 for an ambulance to respond. [facility] contacts [facility] and explains situation. PT has positive CVA tenderness, one week onset of symptoms. PTs mannieamanda sanchez explains that she has been in 10/10 pain for a few days now and has been urging her to go to the hospital. Today she called [facility] because she wanted an evaluation. [...] pt. PT is to be transported to [facility] ED. [facility] clear. ORAL_MEDICATION, EKG, POC_BLOODWORK, GLUCOSE Written by Medical [facility]ED on 2025-02-18
== END 2025-03-09 13:35 | disposition home or self-care (01) ==
LOC: HO.HHCL 13:34
PROVIDERS: PCP Nurse Practitioner Family; Visit Provider Nurse Practitioner Family
DX: K43.9 Ventral hernia without obstruction or gangrene (principal); R23.3 Spontaneous ecchymoses
CPT/HCPCS: 36415; 80053; 85025